=== PATIENT | male | born 1940 | race Caucasian/White ===

== ENCOUNTER 2020-01-15 07:30 | Outpatient (CLI) | payer MEDICARE, SELFPAY ==
[2020-01-15 07:59] LABS: Basophils Absolute Auto 0.1 K/mm3 (0.0-0.1); Basophils Percent Auto 1.2 % (0.2-1.2); Eosinophils Absolute Auto 0.1 K/mm3 (0-0.3); Eosinophils Percent Auto 2.2 % (0-4.4); Hematocrit 42.1 % (42.0-52.0); Hemoglobin 14.4 g/dL (14.0-18.0); Immature Granulocyte Absolute 0.02 K/mm3 (0.00-0.031); Immature Granulocyte Percent A 0.4 % (0-0.5); Lymphocytes Absolute Auto 2.19 K/mm3 (0.9-3.2); Lymphocytes Percent Auto 44.6 % (18.3-44.2); Mean Corpuscular HGB Conc 34.2 g/dl (32-36); Mean Corpuscular Volume 90.7 fl (80-100); Mean Platelet Volume 8.7 fl (7.4-10.4); Monocytes Absolute Auto 0.5 K/mm3 (0.1-0.6); Neutrophils Percent Auto 41.6 % (45.5-73.1); Platelet Count Result 213 k/mm3 (150-375); Red Blood Count 4.64 M/mm3 (4.6-6.20); Red Cell Distribution Width 12.7 % (11.5-14.5); White Blood Count 4.9 K/mm3 (4.5-10.0)
[2020-01-15 08:00] LABS: Add Urine Microscopic? NO; Appearance Urine Clear (Clear); Bilirubin Urine Negative (Negative); Blood Urine Negative (Negative); Color Urine Yellow (Yellow); Glucose Urine UA Negative (Negative); Ketones Urine Negative (Negative); Leukocyte Esterase Ur Negative LEU/UL (NEGATIVE); Nitrate Urine Negative (Negative); Protein Urine Negative (Negative); Specific Grav Ur 1.014 (1.001-1.035); Urobilinogen Urine Negative mg/dL (<2.0)
[2020-01-15 08:10] LABS: Alanine Aminotransferase 27 U/L (4-50); Albumin Level 4.1 g/dL (3.5-5.1); Alkaline Phosphatase 53 U/L (38-126); Aspartate Amino Transferase 29 U/L (17-59); Bilirubin,Total 0.4 mg/dL (0.2-1.3); Blood Urea Nitrogen 10 mg/dL (9-20); Calcium 8.9 mg/dL (8.4-10.2); Carbon Dioxide 32 mmol/L (22-30); Chloride 99 mmol/L (98-107); Cholesterol 135 mg/dL (0-200); Estimated Glomerular Filt Rate > 60; Glucose 91 mg/dL (75-110); HDL Direct 46 mg/dL; Sodium 135 mmol/L (137-145); Triglycerides 56 mg/dL (<150)
[2020-01-15 08:21] LABS: LDL Cholesterol Direct 69 mg/dL
== END 2020-01-15 07:31 | disposition home or self-care (01) ==
PROVIDERS: PCP Family Medicine; Visit Provider Physician Assistant
DX: K59.09 Other constipation (principal); I10 Essential (primary) hypertension; Z00.00 Encounter for general adult medical examination without abnormal findings
CPT/HCPCS: 36415; 80053; 80061; 81003; 84443; 85025

== ENCOUNTER → 2020-03-03 09:03 | Outpatient (REF) | payer MEDICARE, SELFPAY | LOC: ANHLAB 09:03 | PROVIDERS: PCP Family Medicine; Visit Provider Nurse Practitioner | DX: D49.2 Neoplasm of unspecified behavior of bone, soft tissue, and skin (principal) | CPT/HCPCS: 88305 ==

== ENCOUNTER 2020-03-17 00:50 | Outpatient (CLI) | payer MEDICARE, SELFPAY ==
[2020-03-17 19:08] LABS: SARS-CoV-2 RNA PCR Negative
== END 2020-03-17 00:51 | disposition home or self-care (01) ==
LOC: ANHCOVIDDT 00:50
PROVIDERS: PCP Family Medicine; Visit Provider Internal Medicine Gastroenterology
DX: Z01.812 Encounter for preprocedural laboratory examination (principal); Z11.59 Encounter for screening for other viral diseases
CPT/HCPCS: 87635; C9803; U0003

== ENCOUNTER 2020-03-19 01:24 | Day surgery (SDC) | payer MEDICARE, SELFPAY ==
[2020-03-12 14:25] VITALS: BMI 26.1
[2020-03-19 10:00] VITALS: BP 128/83; PULSE 69; RESP 18; TEMP 36.7; O2SAT 98
--- NOTE | 2020-03-19 10:10 | WPDANESEPPF ---
Anes - Initial Pre Proc Eval Procedure: Operation Date: 03/19/20 10:30 Proposed Procedures p Colonoscopy - Marques Barksdale DO Date/Time: 03/19/20 10:10 Surgeon: Marques Barksdale DO Pre Op Diagnosis: polyp of colon Patient Data Age: 79 Gender: M Height: 5 ft 8 in Weight: 78 kg Allergies Allergy/AdvReac Type Severity Reaction Status Date / Time NSAIDS (Non-Steroidal Allergy Mild Gastrointestinal Verified 03/19/20 10:02 Anti-Inflamma Upset celecoxib Allergy Unknown Gastrointestinal Verified 03/19/20 10:02 Upset ciprofloxacin Allergy Unknown Muscle pain Verified 03/19/20 10:02 latex Allergy Unknown Rash Verified 03/19/20 10:02 Home Medications Medication Instructions Recorded Confirmed Type apixaban 5 mg tablet 5 mg PO BID 07/09/19 03/12/20 History calcium carbonate 500 mg (1,250 1 tablet PO DAILY 07/09/19 03/12/20 History mg)-vitamin D3 200 unit tablet coenzyme Q10 200 mg capsule 200 mg PO DAILY 07/09/19 03/12/20 History magnesium 200 mg tablet 200 mg PO DAILY 07/09/19 03/12/20 History omeprazole 40 mg capsule,delayed 40 mg PO DAILY 07/09/19 03/12/20 History release sacubitril 24 mg-valsartan 26 mg 1 tablet PO BID 07/09/19 03/12/20 History tablet mometasone 50 mcg/actuation nasal 2 spray NASAL DAILY #17 gm 02/05/20 03/12/20 Rx spray atorvastatin 40 mg tablet 40 mg PO DAILY tablet 03/03/20 03/12/20 History melatonin 3 mg capsule 3 mg PO PRN PRN 03/03/20 03/12/20 History multivitamin 1 tablet PO DAILY 03/03/20 03/12/20 History sotalol 120 mg tablet 160 mg PO Q12H tablet 03/03/20 03/12/20 History Patient hx anesthesia problems: none Family hx anesthesia problems: none PMFSH Past Medical History Medical History (Updated 03/03/20 @ 09:03 by Katharina Mims) Anemia Arrhythmia Cholecystostomy care Chronic insomnia Coronary artery disease Heart disease Hernia Hypertension Vascular disease Surgical History Surgical History (Updated 03/03/20 @ 08:47 by Teresa L. Morel, RN) History of hernia repair Social History Social History (Updated 02/26/20 @ 13:06 by Park Jay) Smoking packs per day: 1 Smoking cigarettes per day: 20.0 Years smoked: 11 Smoking pack-years: 11.00 Smoking status: Former smoker Tobacco type: cigarettes Second hand tobacco smoke exposure: No Smoking end date: 09/04/71 Alcohol intake: current Drinks per week: 7 Substance use: never Substance use type: does not use Gender identity (if verbalized by the patient): Male Anes - Eval Final PreProcedure Day of Procedure 03/19/20 10:10 Patient weight: normal Heart: regular rate and rhythm Lungs: clear to auscultation Airway: Mallampati scale class II Neurological: alert and oriented Last oral intake: >/= 8 hours ASA classification: III Emergent: no Anesthetic plan: proceed Anesthesia type and monitoring: general GIVS and standard monitoring Informed Consent: The patient's anesthetic plan and its attendant risks and benefits were discussed with the patient/family/POA. Questions were solicited and answers provided to the satisfaction of the patient/family/POA.
[2020-03-19] MEDS: LACTATED RINGERS 1,000 ML 150 ML IV CONT (10:31)
--- NOTE | 2020-03-19 11:13 | PM.IMHP ---
H&P: HPI History of Present Illness Chief complaint: polyp of colon Narrative: Reason for visit colonoscopy. This very pleasant gentleman seen at the request of the primary physician. The patient was examined. Impression: Here is a gentleman with a history adenomatous colon polyps. He is here for colonoscopy for screening and surveillance. He does have a history of constipation and takes MiraLax daily. Previous history of anal stenosis also noted. GERD controlled on medication. CAD. CHF with cardiomyopathy. Cardiac dysrhythmia status post cardiac ablation and pacemaker placement. HLD. HTN. Recommendation: Colonoscopy. History: this very pleasant gentleman is here for screening and surveillance colonoscopy. He has a history of adenomatous colon polyps. Patient does have a history of constipation and takes MiraLax. He has a previous history of reflux disease controlled on medication. Patient is here for colonoscopy. He does complain occasional sharp pains. The patient is a history congestive heart failure. He does admit to having panting . He denies any significant chest pain, shortness of breath, dyspnea on exertion, cough or hemoptysis. Physical examination: General: very pleasant patient in no acute distress. HEENT: Head was normocephalic sclerae is clear mouth without masses neck was supple. Heart: Rate rhythm regular without S3 or S4. Lungs: CTA. Abdomen: Soft with no guarding or rigidity. Bowel sounds were active. Neurologic: Cranial nerves 2 through 12 intact. No focal defects. No clonus. Musculoskeletal system: Revealed no joint tenderness or swelling no muscle atrophy. Extremities: Reveal no significant edema. Skin: Warm and dry with normal turgor. Mental status: intact. Patient is alert and oriented. Review of Systems Review of Systems: All systems reviewed & are unremarkable except as noted in HPI and below [facility] Past Medical History Medical History (Updated 03/03/20 @ 09:03 by Katharina Mims) Anemia Arrhythmia Cholecystostomy care Chronic insomnia Coronary artery disease Heart disease Hernia Hypertension Vascular disease Surgical History Surgical History (Updated 03/03/20 @ 08:47 by Teresa Morel RN) History of hernia repair Social History Social History (Updated 02/26/20 @ 13:06 by Park Jay) Smoking packs per day: 1 Smoking cigarettes per day: 20.0 Years smoked: 11 Smoking pack-years: 11.00 Smoking status: Former smoker Tobacco type: cigarettes Second hand tobacco smoke exposure: No Smoking end date: 09/04/71 Alcohol intake: current Drinks per week: 7 Substance use: never Substance use type: does not use Gender identity (if verbalized by the patient): Male Meds Home Medications and Allergies Home Medications Medication Instructions Recorded Confirmed Type apixaban 5 mg tablet 5 mg PO BID 07/09/19 03/19/20 History calcium carbonate 500 mg (1,250 1 tablet PO DAILY 07/09/19 03/19/20 History mg)-vitamin D3 200 unit tablet coenzyme Q10 200 mg capsule 200 mg PO DAILY 07/09/19 03/19/20 History magnesium 200 mg tablet 200 mg PO DAILY 07/09/19 03/19/20 History omeprazole 40 mg capsule,delayed 40 mg PO DAILY 07/09/19 03/19/20 History release sacubitril 24 mg-valsartan 26 mg 1 tablet PO BID 07/09/19 03/19/20 History tablet mometasone 50 mcg/actuation nasal 2 spray NASAL DAILY #17 gm 02/05/20 03/19/20 Rx spray atorvastatin 40 mg tablet 40 mg PO DAILY tablet 03/03/20 03/19/20 History melatonin 3 mg capsule 3 mg PO PRN PRN 03/03/20 03/19/20 History multivitamin 1 tablet PO DAILY 03/03/20 03/19/20 History sotalol 120 mg tablet 160 mg PO Q12H tablet 03/03/20 03/19/20 History buspirone 5 mg PO QAM 03/19/20 03/19/20 History furosemide 20 mg PO QAM 03/19/20 03/19/20 History Allergies Allergy/AdvReac Type Severity Reaction Status Date / Time NSAIDS (Non-Steroidal Allergy Mild
[2020-03-19 11:49] VITALS: BP 87/54; PULSE 60; RESP 16; O2SAT 96
[2020-03-19 11:59] VITALS: BP 103/59; PULSE 62; RESP 16; O2SAT 95
[2020-03-19 12:09] VITALS: BP 116/73; PULSE 61; RESP 15; O2SAT 99
== END 2020-03-19 12:28 | disposition home or self-care (01) ==
PROVIDERS: PCP Family Medicine; Visit Provider Internal Medicine Gastroenterology
PROC: 0DJD8ZZ Inspection of Lower Intestinal Tract, Via Natural or Artificial Opening Endoscopic (ICD-10-PCS; CPT 45378; principal; 2020-03-19 10:30)
DX: Z12.11 Encounter for screening for malignant neoplasm of colon (principal); D12.2 Benign neoplasm of ascending colon; K57.30 Diverticulosis of large intestine without perforation or abscess without bleeding; K64.8 Other hemorrhoids; K62.4 Stenosis of anus and rectum; I11.0 Hypertensive heart disease with heart failure; I25.10 Atherosclerotic heart disease of native coronary artery without angina pectoris; I50.9 Heart failure, unspecified; I42.9 Cardiomyopathy, unspecified; E78.5 Hyperlipidemia, unspecified; Z95.0 Presence of cardiac pacemaker; Z87.891 Personal history of nicotine dependence; Z79.01 Long term (current) use of anticoagulants
CPT/HCPCS: 45380; 36415; 71046; 74177; 80048; 81001; 85025; 88305; 99284; J2704; J7120; Q9967

== ENCOUNTER 2020-03-19 21:22 | Emergency (ER) | payer MEDICARE, SELFPAY ==
--- NOTE | ~2020-03-19 | CT_ITS ---
EXAMINATION: CT abdomen pelvis w con DATE: 03/19/2020 23:23 INDICATION: Low abdominal pain. Fever. TECHNIQUE: Computed tomography (CT) of the abdomen and pelvis was performed with 100 mL Omnipaque 350 intravenous contrast. Automated exposure control and iterative reconstruction technique were employe d. The dose-length product was 509.79 mGy-cm. COMPARISON: Pelvis CT 02/27/2017 FINDINGS: The visualized portions of the lung bases demonstrate mild atelectasis. No pleural effusion . The heart size is normal. There are coronary artery calcifications. No pericardial effusion. There are pacer wires in right atrium, right ventricle, and coronary sinus. There is a 1.7 cm cyst in the l iver. There are changes of cholecystectomy. The spleen, pancreas, and adrenal glands are normal. Ther e are are cysts in the kidneys measuring up to 4.1 cm on the left. There are no dilated loops of desire l. The appendix is normal. There are no pathologically enlarged lymph nodes. There is no free intrape ritoneal fluid. There is mild thoracolumbar spondylosis. IMPRESSION: 1. No etiology for the patient's symptoms. Reviewed, dictated and finalized at location A.
--- NOTE | ~2020-03-19 | XR_ITS ---
EXAMINATION: XR chest 2V DATE: 03/19/2020 23:11 INDICATION: Fever. TECHNIQUE: Frontal and lateral views of the chest were obtained. COMPARISON: Chest 2 views 07/15/2019 FINDINGS: There is mild atelectasis in the lower lung zones. No pleural effusion or pneumothorax. The heart size is normal. There is a left chest pacer with leads in right atrium, right ventricle, and c oronary sinus. Surgical clips in the right upper quadrant are likely from cholecystectomy. IMPRESSION: 1. Mild atelectasis in the lower lung zones. Reviewed, dictated and finalized at location A.
[2020-03-19 21:29] VITALS: BP 123/75; PULSE 93; RESP 20; TEMP 37.4; O2SAT 95
[2020-03-19 21:36] VITALS: TEMP 36.9
--- NOTE | 2020-03-19 22:37 | ED.FEVER ---
HPI - Fever General Chief Complaint: Fever Stated Complaint: fever Time Seen by Provider: 03/19/20 22:12 History of Present Illness HPI Narrative: Patient is a 79-year-old male who presents to the ER with fever of 101.1 ?F. Patient underwent colonoscopy today and was told if he had a fever he should come back in. He called his GI physician Dr. Barksdale. Reports mild lower abdominal discomfort with bloating. Has not passed a lot of gas since his colonoscopy. No nausea/vomiting/runny nose/sore throat/productive cough. Had a negative COVID test 2 days ago. No known exposures. No diarrhea. Related Data Home Medications Medication Instructions Recorded Confirmed apixaban 5 mg tablet 5 mg PO BID 07/09/19 03/19/20 calcium carbonate 500 mg (1,250 1 tablet PO DAILY 07/09/19 03/19/20 mg)-vitamin D3 200 unit tablet coenzyme Q10 200 mg capsule 200 mg PO DAILY 07/09/19 03/19/20 magnesium 200 mg tablet 200 mg PO DAILY 07/09/19 03/19/20 omeprazole 40 mg capsule,delayed 40 mg PO DAILY 07/09/19 03/19/20 release sacubitril 24 mg-valsartan 26 mg 1 tablet PO BID 07/09/19 03/19/20 tablet atorvastatin 40 mg tablet 40 mg PO DAILY tablet 03/03/20 03/19/20 melatonin 3 mg capsule 3 mg PO PRN PRN 03/03/20 03/19/20 multivitamin 1 tablet PO DAILY 03/03/20 03/19/20 sotalol 120 mg tablet 160 mg PO Q12H tablet 03/03/20 03/19/20 buspirone 5 mg PO QAM 03/19/20 03/19/20 furosemide 20 mg PO QAM 03/19/20 03/19/20 Allergies Allergy/AdvReac Type Severity Reaction Status Date / Time NSAIDS (Non-Steroidal Allergy Mild Gastrointestinal Verified 03/19/20 10:02 Anti-Inflamma Upset celecoxib Allergy Unknown Gastrointestinal Verified 03/19/20 10:02 Upset ciprofloxacin Allergy Unknown Muscle pain Verified 03/19/20 10:02 latex Allergy Unknown Rash Verified 03/19/20 10:02 Review of Systems Review of Systems: All systems reviewed & are unremarkable except as noted in HPI and below Constitutional: Constitutional: Reports chills, Reports fatigue and Reports fever(s) ENT: Denies nasal congestion and Denies sore throat Cardiovascular: Cardiovascular: Denies chest pain, Denies rapid heart rate and Denies radiating jaw, neck or arm pain Respiratory: Respiratory: Denies chest congestion, Denies cough and Denies dyspnea Gastrointestinal: Gastrointestinal: Reports abdominal pain, Denies constipation, Denies diarrhea, Denies nausea and Denies vomiting PMFSH Past Medical History Medical History (Updated 03/20/20 @ 00:26 by Kar Grey MD) Anemia Arrhythmia Cholecystostomy care Chronic insomnia Coronary artery disease Heart disease Hernia Hypertension Vascular disease Surgical History Surgical History (Updated 03/03/20 @ 08:47 by Teresa Morel RN) History of hernia repair Social History Social History (Updated 02/26/20 @ 13:06 by Park Jay) Smoking packs per day: 1 Smoking cigarettes per day: 20.0 Years smoked: 11 Smoking pack-years: 11.00 Smoking status: Former smoker Tobacco type: cigarettes Second hand tobacco smoke exposure: No Smoking end date: 09/04/71 Alcohol intake: current Drinks per week: 7 Substance use: never Substance use type: does not use Gender identity (if verbalized by the patient): Male Exam Narrative: Exam Narrative: GENERAL: Well-appearing, well-nourished, and in no acute distress. HEAD: Normocephalic, atraumatic. CHEST: Clear to auscultation. No respiratory distress. HEART: Regular rate and rhythm. Normal peripheral pulses. ABDOMEN: Soft, mild lower abdominal discomfort, nondistended, normal active bowel sounds. EXTREMITIES: Normal range of motion. No edema. SKIN: Warm, dry, no rash. NEURO: Alert and oriented x3. PSYCH: Normal mood and affect. Course Course Emergency Course: Patient informed of results. Feeling well. Discharge home. Vital Signs Vital signs: Vital Signs Temperature 99.4 F 03/19/20 21:29 Pulse Rate 93 03/19/20 21:29 Respirato
[2020-03-19 22:55] LABS: Basophils Percent Auto 0.3 % (0.2-1.2); Eosinophils Percent Auto 0.2 % (0-4.4); Hematocrit 40.1 % (42.0-52.0); Hemoglobin 14.1 g/dL (14.0-18.0); Immature Granulocyte Absolute 0.02 K/mm3 (0.00-0.031); Immature Granulocyte Percent A 0.2 % (0-0.5); Lymphocytes Absolute Auto 1.51 K/mm3 (0.9-3.2); Lymphocytes Percent Auto 15.1 % (18.3-44.2); Mean Corpuscular HGB Conc 35.2 g/dl (32-36); Mean Corpuscular Hemoglobin 31.7 pg (26-34); Mean Corpuscular Volume 90.1 fl (80-100); Mean Platelet Volume 8.9 fl (7.4-10.4); Monocytes Percent Auto 10.4 % (2.6-8.5); Neutrophils Absolute Auto 7.4 K/mm3 (1.3-6.7); Neutrophils Percent Auto 73.8 % (45.5-73.1); Platelet Count Result 229 k/mm3 (150-375); Red Blood Count 4.45 M/mm3 (4.6-6.20); Red Cell Distribution Width 12.5 % (11.5-14.5)
[2020-03-19 22:56] VITALS: BP 109/66; PULSE 79; RESP 14; TEMP 37.5; O2SAT 93
[2020-03-19 22:59] LABS: Add Urine Microscopic? YES; Appearance Urine Clear (Clear); Bilirubin Urine Negative (Negative); Blood Urine 1+ (Negative); Color Urine Straw (Yellow); Glucose Urine UA Negative (Negative); Ketones Urine Negative (Negative); Leukocyte Esterase Ur Negative LEU/UL (Negative); Nitrate Urine Negative (Negative); Protein Urine Negative (Negative); RBC Urine 0-2 /hpf (0-2); Specific Grav Ur 1.009 (1.001-1.035); Urobilinogen Urine Negative mg/dL (<2.0); WBC Urine 0-3 /hpf
[2020-03-19 23:09] LABS: Blood Urea Nitrogen 14 mg/dL (9-20); Calcium 8.9 mg/dL (8.4-10.2); Carbon Dioxide 26 mmol/L (22-30); Chloride 101 mmol/L (98-107); Estimated CRCL calculation 74 ml/min; Estimated Glomerular Filt Rate > 60; Glucose 92 mg/dL (75-110); Potassium 3.5 mmol/L (3.4-5.0); Sodium 134 mmol/L (137-145)
[2020-03-20 00:39] VITALS: BP 125/79; PULSE 66; RESP 16; TEMP 37.3; O2SAT 94
== END 2020-03-20 00:40 | disposition home or self-care (01) ==
PROVIDERS: Emergency Provider Emergency Medicine; PCP Family Medicine
DX: R50.82 Postprocedural fever (principal); I25.10 Atherosclerotic heart disease of native coronary artery without angina pectoris; I99.9 Unspecified disorder of circulatory system; I11.9 Hypertensive heart disease without heart failure; Z87.891 Personal history of nicotine dependence
CPT/HCPCS: 36415; 71046; 74177; 80048; 81001; 85025; 99284; Q9967

== ENCOUNTER → 2020-06-05 12:41 | Outpatient (CLI) | payer MEDICARE, SELFPAY ==
--- NOTE | ~2020-06-05 | CT_ITS ---
EXAMINATION: CT sinus wo con EXAM DATE: 06/05/2020 12:57 INDICATION: Chronic sinusitis. TECHNIQUE: Spiral CT of the sinuses was acquired in the axial plane. Coronal and sagittal reformatte d images were also reviewed. The dose-length product (DLP) for this examination was 276.47 mGy-cm. Iterative reconstruction (ASIR) was used as dose reduction technique. There is no prior study for co mparison. FINDINGS: The sinuses are normally developed. Mild bilateral maxillary sinus mucoperiosteal thicke alber, and a small amount of fluid in the right maxillary sinus. There is moderate-sized left maxillar y sinus retention cyst. The ostiomeatal units are patent. Small right-sided uriel bullosa. There is moderate S-shaped nasal septal deviation. The mastoid air cells and middle ears are well aerated. External auditory canals are patent. Bilateral cataract surgery. IMPRESSION: 1. Mild maxillary mucoperiosteal thickening and small amount of right maxillary fluid. 2. Moderate nasal septal deviation. Reviewed, dictated and finalized at location A. IMPRESSION: 1. Mild maxillary mucoperiosteal thickening and small amount of right maxillar y fluid. 2. Moderate nasal septal deviation.
== END ==
PROVIDERS: Visit Provider Otolaryngology
DX: J32.9 Chronic sinusitis, unspecified (principal); J34.2 Deviated nasal septum
CPT/HCPCS: 70486

== ENCOUNTER → 2020-07-16 13:09 | Outpatient (REF) | payer MEDICARE, SELFPAY | LOC: ANHLAB 13:09 | PROVIDERS: PCP Family Medicine; Visit Provider Nurse Practitioner | DX: L90.5 Scar conditions and fibrosis of skin (principal); L85.9 Epidermal thickening, unspecified | CPT/HCPCS: 88304 ==

== ENCOUNTER 2020-08-03 00:15 | Outpatient (CLI) | payer MEDICARE, SELFPAY ==
[2020-08-03 20:45] LABS: SARS-CoV-2 RNA PCR Negative
== END 2020-08-03 00:16 | disposition home or self-care (01) ==
LOC: ANHCOVIDDT 00:16
PROVIDERS: PCP Family Medicine; Visit Provider Internal Medicine Gastroenterology
DX: Z01.812 Encounter for preprocedural laboratory examination (principal); Z11.59 Encounter for screening for other viral diseases
CPT/HCPCS: 87635; C9803; U0003

== ENCOUNTER 2020-08-06 02:03 | Day surgery (SDC) | payer MEDICARE, SELFPAY ==
[2020-07-29 11:54] VITALS: BMI 26.8
[2020-08-06 15:06] VITALS: BP 140/81; PULSE 73; RESP 18; TEMP 36.9; O2SAT 99
--- NOTE | 2020-08-06 15:15 | WPDANESEPPF ---
Anes - Initial Pre Proc Eval Procedure: Operation Date: 08/06/20 16:00 Proposed Procedures p Esophagogastroduodenoscopy - Shon Hall MD Date/Time: 08/06/20 15:15 Surgeon: Shon Hall MD Pre Op Diagnosis: epigastric pain Patient Data Age: 80 Gender: M Height: 5 ft 8 in Weight: 81 kg Last Vital Signs Temp 98.4 F 08/06/20 15:06 Pulse 73 08/06/20 15:06 Resp 18 08/06/20 15:06 BP 140/81 08/06/20 15:06 Pulse Ox 99 08/06/20 15:06 Allergies Allergy/AdvReac Type Severity Reaction Status Date / Time celecoxib Allergy Intermediate Gastrointestinal Verified 08/06/20 15:03 Upset ciprofloxacin Allergy Intermediate Muscle pain Verified 08/06/20 15:03 latex Allergy Intermediate Rash Verified 08/06/20 15:03 NSAIDS (Non-Steroidal Allergy Intermediate Gastrointestinal Verified 08/06/20 15:03 Anti-Inflamma Upset Home Medications Medication Instructions Recorded Confirmed Type apixaban 5 mg tablet 5 mg PO BID 07/09/19 07/29/20 History coenzyme Q10 200 mg capsule 200 mg PO DAILY 07/09/19 07/29/20 History magnesium 200 mg tablet 200 mg PO DAILY 07/09/19 07/29/20 History omeprazole 40 mg capsule,delayed 40 mg PO DAILY 07/09/19 07/29/20 History release sacubitril 24 mg-valsartan 26 mg 1 tablet PO BID 07/09/19 07/29/20 History tablet mometasone 50 mcg/actuation nasal 2 spray NASAL DAILY #17 gm 02/05/20 07/29/20 Rx spray atorvastatin 40 mg tablet 40 mg PO DAILY tablet 03/03/20 07/29/20 History melatonin 3 mg capsule 3 mg PO PRN PRN 03/03/20 07/29/20 History multivitamin 1 tablet PO DAILY 03/03/20 07/29/20 History sotalol 120 mg tablet 120 mg PO Q12H tablet 03/03/20 07/29/20 History furosemide 20 mg PO QAM 03/19/20 07/29/20 History amlodipine 2.5 mg PO DAILY 07/29/20 07/29/20 History buspirone 5 mg PO TID 07/29/20 07/29/20 History calcium carbonate [Calcium 600] 600 mg PO DAILY 07/29/20 07/29/20 History Patient hx anesthesia problems: none Family hx anesthesia problems: none [facility] Past Medical History Medical History Anemia Arrhythmia Cholecystostomy care Chronic insomnia Coronary artery disease Degenerative arthritis of knee, bilateral Depression Heart disease Hernia History of gastroesophageal reflux (GERD) History of stomach ulcers Hypertension Vascular disease Surgical History Surgical History History of cholecystectomy History of hernia repair History of permanent cardiac pacemaker placement Family History Family History Mother Hypertension Patient's mother is in good health Sibling Hypertension Father Family history of heart disease in male family member before age 55 Other Cerebrovascular accident Diabetes mellitus Family history of arthritis Family history of cardiovascular disease Family history of kidney disease Social History Social History Smoking packs per day: 1 Smoking cigarettes per day: 20.0 Years smoked: 11 Smoking pack-years: 11.00 Smoking status: Former smoker Tobacco type: cigarettes Second hand tobacco smoke exposure: No Smoking end date: 09/04/71 Alcohol intake: current Drinks per week: 7 Alcohol use details: WINE Substance use: never Substance use type: does not use Other substance usage details: GUMMIES OCC. FOR KNEE PAIN Living arrangements: with family Gender identity (if verbalized by the patient): Male Spiritual care concerns: No Anes - Eval Final PreProcedure Day of Procedure 08/06/20 15:15 Patient weight: normal Heart: regular rate and rhythm Lungs: clear to auscultation Airway: Mallampati scale class II Neurological: alert and oriented Last oral intake: 6 hours ASA classification: III Emergent: no Anesthetic plan: p
[2020-08-06] MEDS: LACTATED RINGERS 1,000 ML 150 ML IV CONT (15:33)
--- NOTE | 2020-08-06 16:10 | PM.HPGS ---
History of Present Illness History of Present Illness Consent: Risks, benefits, and alternatives have been discussed and questions answered. Patient agrees to proceed with procedure. Chief complaint: epigastric pain Narrative: Cole Fatima is a 80 year old male who is Dr Barksdale's patient and has been complaining of more epigastric pain. He had ulcer about 7 years ago, taking omeprazole for almost 15 years. Also h/o IBS. Denies recent nsaid's. Review of Systems Constitutional: Constitutional: Denies headache(s) and Denies weakness Eyes: Eyes: Denies blurry vision ENT: Reports Normal hearing present, Denies headache(s) and Denies neck pain Cardiovascular: Cardiovascular: Denies chest pain and Denies dyspnea Respiratory: Respiratory: Denies dyspnea Gastrointestinal: Gastrointestinal: Reports no additional gastrointestinal complaints Genitourinary: Genitourinary: Denies dysuria Musculoskeletal: Musculoskeletal: Denies neck pain Integumentary/Breasts: Skin/Breast: Denies dry skin Neurologic: Reports Normal hearing present, Denies headache(s) and Denies weakness Psychiatric: Psychiatric: Denies anxiety Endocrine: Endocrine: Denies change in body appearance Hematologic/Lymphatic: Hematologic/Lymphatic: Denies easy bleeding Allergic/Immunologic: Allergic/Immunologic: Denies urticaria PMFSH Past Medical History Medical History (Updated 08/06/20 @ 16:11 by Shon Hall MD) Anemia Arrhythmia Cholecystostomy care Chronic insomnia Coronary artery disease Degenerative arthritis of knee, bilateral Depression Epigastric pain GERD (gastroesophageal reflux disease) Heart disease Hernia History of gastroesophageal reflux (GERD) History of stomach ulcers Hypertension Vascular disease Surgical History Surgical History History of cholecystectomy History of hernia repair History of permanent cardiac pacemaker placement Family History Family History Mother Hypertension Patient's mother is in good health Sibling Hypertension Father Family history of heart disease in male family member before age 55 Other Cerebrovascular accident Diabetes mellitus Family history of arthritis Family history of cardiovascular disease Family history of kidney disease Social History Social History Smoking packs per day: 1 Smoking cigarettes per day: 20.0 Years smoked: 11 Smoking pack-years: 11.00 Smoking status: Former smoker Tobacco type: cigarettes Second hand tobacco smoke exposure: No Smoking end date: 09/04/71 Alcohol intake: current Drinks per week: 7 Alcohol use details: WINE Substance use: never Substance use type: does not use Other substance usage details: KAT OCC. FOR KNEE PAIN Living arrangements: with family Gender identity (if verbalized by the patient): Male Spiritual care concerns: No Meds Home Medications and Allergies Home Medications Medication Instructions Recorded Confirmed Type apixaban 5 mg tablet 5 mg PO BID 07/09/19 07/29/20 History coenzyme Q10 200 mg capsule 200 mg PO DAILY 07/09/19 07/29/20 History magnesium 200 mg tablet 200 mg PO DAILY 07/09/19 07/29/20 History omeprazole 40 mg capsule,delayed 40 mg PO DAILY 07/09/19 07/29/20 History release sacubitril 24 mg-valsartan 26 mg 1 tablet PO BID 07/09/19 07/29/20 History tablet mometasone 50 mcg/actuation nasal 2 spray NASAL DAILY #17 gm 02/05/20 07/29/20 Rx spray atorvastatin 40 mg tablet 40 mg PO DAILY tablet 03/03/20 07/29/20 History melatonin 3 mg capsule 3 mg PO PRN PRN 03/03/20 07/29/20 History multivitamin 1 tablet PO DAILY 03/03/20 07/29/20 History sotalol 120 mg tablet 120 mg PO Q12H tablet 03/03/20 07/29/20 History furosemide 20 mg PO QAM 03/19/20 07/29/20 History amlodipine 2.5 mg PO HUMBERTO
[2020-08-06] MEDS: BENZOCAINE (*SP) 60 ML SPRAY CAN (HURRICAINE) 1 SPRAY MUCOUS MEM (16:18)
[2020-08-06 16:28] VITALS: BP 124/82; PULSE 70; RESP 19; O2SAT 95
[2020-08-06 16:38] VITALS: BP 121/83; PULSE 63; RESP 21; O2SAT 96
[2020-08-06 16:48] VITALS: BP 123/89; PULSE 65; RESP 20; O2SAT 97
== END 2020-08-06 17:07 | disposition home or self-care (01) ==
PROVIDERS: PCP Family Medicine; Visit Provider Internal Medicine Gastroenterology
PROC: 0DJ08ZZ Inspection of Upper Intestinal Tract, Via Natural or Artificial Opening Endoscopic (ICD-10-PCS; CPT 43235; principal; 2020-08-06 16:00)
DX: K21.9 Gastro-esophageal reflux disease without esophagitis (principal); K25.9 Gastric ulcer, unspecified as acute or chronic, without hemorrhage or perforation; K29.50 Unspecified chronic gastritis without bleeding; K31.7 Polyp of stomach and duodenum; I25.10 Atherosclerotic heart disease of native coronary artery without angina pectoris; I11.9 Hypertensive heart disease without heart failure; D64.9 Anemia, unspecified; F32.9 Major depressive disorder, single episode, unspecified; Z79.01 Long term (current) use of anticoagulants; Z87.891 Personal history of nicotine dependence
CPT/HCPCS: 43239; 88305; J2704; J7120

== ENCOUNTER → 2020-11-09 00:33 | Outpatient (CLI) | payer MEDICARE, SELFPAY ==
[2020-11-09 18:03] LABS: SARS-CoV-2 RNA PCR Negative
== END ==
PROVIDERS: PCP Family Medicine; Visit Provider Internal Medicine Gastroenterology
DX: Z01.812 Encounter for preprocedural laboratory examination (principal); Z20.822 Contact with and (suspected) exposure to COVID-19
CPT/HCPCS: C9803; U0003; U0005

== ENCOUNTER 2020-11-12 00:29 | Day surgery (SDC) | payer MEDICARE, SELFPAY ==
[2020-11-02 11:15] VITALS: BMI 27.4
[2020-11-12 11:47] VITALS: BP 123/86; PULSE 77; RESP 20; TEMP 36.3; O2SAT 100; BMI 27.1
--- NOTE | 2020-11-12 12:09 | WPDANESEPPF ---
Anes - Initial Pre Proc Eval Procedure: Operation Date: 11/12/20 12:30 Proposed Procedures p Esophagogastroduodenoscopy - Marques Barksdale DO Date/Time: 11/12/20 12:09 Surgeon: Marques Barksdale DO Pre Op Diagnosis: peptic ulcer disease Patient Data Age: 80 Gender: M Height: 5 ft 8 in Weight: 80.8 kg Last Vital Signs Temp 97.3 F L 11/12/20 11:47 Pulse 77 11/12/20 11:47 Resp 20 11/12/20 11:47 BP 123/86 11/12/20 11:47 Pulse Ox 100 11/12/20 11:47 Allergies Allergy/AdvReac Type Severity Reaction Status Date / Time celecoxib Allergy Intermediate Gastrointestinal Verified 11/12/20 11:44 Upset ciprofloxacin Allergy Intermediate Muscle pain Verified 11/12/20 11:44 latex Allergy Intermediate Rash Verified 11/12/20 11:44 NSAIDS (Non-Steroidal Allergy Intermediate Gastrointestinal Verified 11/12/20 11:44 Anti-Inflamma Upset Home Medications Medication Instructions Recorded Confirmed Type apixaban 5 mg tablet 5 mg PO BID 07/09/19 11/02/20 History coenzyme Q10 200 mg capsule 200 mg PO DAILY 07/09/19 11/02/20 History magnesium 200 mg tablet 200 mg PO DAILY 07/09/19 11/02/20 History sacubitril 24 mg-valsartan 26 mg 1 tablet PO BID 07/09/19 11/02/20 History tablet atorvastatin 40 mg tablet 40 mg PO DAILY tablet 03/03/20 11/02/20 History multivitamin 1 tablet PO DAILY 03/03/20 11/02/20 History sotalol 120 mg tablet 120 mg PO Q12H tablet 03/03/20 11/02/20 History furosemide 20 mg PO QAM 03/19/20 11/02/20 History amlodipine 5 mg PO DAILY 07/29/20 11/02/20 History buspirone 5 mg PO TID 07/29/20 11/02/20 History calcium carbonate [Calcium 600] 600 mg PO DAILY 07/29/20 11/02/20 History omeprazole 40 mg capsule,delayed 40 mg PO BID #60 cap 08/06/20 11/02/20 Rx release azelastine 137 mcg (0.1 %) nasal 1 spray INTRANASAL Q12H #30 ml 09/17/20 11/02/20 Rx spray aerosol Patient hx anesthesia problems: none Family hx anesthesia problems: none PMFSH Past Medical History Medical History Anemia Arrhythmia Cholecystostomy care Chronic insomnia Coronary artery disease Degenerative arthritis of knee, bilateral Depression Epigastric pain GERD (gastroesophageal reflux disease) Heart disease Hernia History of gastroesophageal reflux (GERD) History of stomach ulcers Hypertension Vascular disease Surgical History Surgical History History of cholecystectomy History of hernia repair History of permanent cardiac pacemaker placement Family History Family History Mother Hypertension Patient's mother is in good health Sibling Hypertension Father Family history of heart disease in male family member before age 55 Other Cerebrovascular accident Diabetes mellitus Family history of arthritis Family history of cardiovascular disease Family history of kidney disease Social History Social History Smoking packs per day: 1 Smoking cigarettes per day: 20.0 Years smoked: 11 Smoking pack-years: 11.00 Smoking status: Former smoker Tobacco type: cigarettes Second hand tobacco smoke exposure: No Smoking end date: 09/04/71 Alcohol intake: current Drinks per week: 7 Substance use: never Substance use type: does not use Other substance usage details: GUMMIES OCC. FOR KNEE PAIN Living arrangements: with family Gender identity (if verbalized by the patient): Male Spiritual care concerns: No Anes - Eval Final PreProcedure Day of Procedure 11/12/20 12:09 Patient weight: normal Heart: regular rate and rhythm Lungs: clear to auscultation Airway: Mallampati scale class II Neurological: alert and oriented Last oral intake: >/= 8 hours ASA classification: III Emergent: no Anesthetic plan: proceed Anesthesia type and monitoring: general GIVS and s
[2020-11-12] MEDS: LACTATED RINGERS 1,000 ML 150 ML IV CONT (12:16)
--- NOTE | 2020-11-12 12:19 | WPDGICN ---
GI Consult Note Consult date/time: 11/12/20 12:19 HPI: This very pleasant gentleman is seen regarding EGD. This very pleasant gentleman seen in consultation request the primary physician. Impression: History of GI bleeding gastric ulcer disease. He does have an underlying history of GERD. He is here to assess for healing. History adenomatous colon polyps. CAD. DJD. Depression. HTN. Valvular heart disease. Recommendation: EGD. History: This very pleasant gentleman was admitted to the hospital with GI bleeding. He underwent endoscopy by a fellow colleague. Was found have gastric ulcer disease. His GI review systems now negative. He is here to assess for healing. He does have a history reflux disease and is asymptomatic. He also has a history adenomatous colon polyps. General: very pleasant patient in no acute distress. HEENT: Head was normocephalic sclerae is clear mouth without masses neck was supple. Heart: Rate rhythm regular without S3 or S4. Lungs: CTA. Abdomen: Soft with no guarding or rigidity. Bowel sounds were active. Neurologic: Cranial nerves 2 through 12 intact. No focal defects. No clonus. Musculoskeletal system: Revealed no joint tenderness or swelling no muscle atrophy. Extremities: Reveal no significant edema. Skin: Warm and dry with normal turgor. Mental status: intact. Patient is alert and oriented. Review of Systems Review of Systems: All systems reviewed & are unremarkable except as noted in HPI and below PMFSH Past Medical History Medical History Anemia Arrhythmia Cholecystostomy care Chronic insomnia Coronary artery disease Degenerative arthritis of knee, bilateral Depression Epigastric pain GERD (gastroesophageal reflux disease) Heart disease Hernia History of gastroesophageal reflux (GERD) History of stomach ulcers Hypertension Vascular disease Surgical History Surgical History History of cholecystectomy History of hernia repair History of permanent cardiac pacemaker placement Family History Family History Mother Hypertension Patient's mother is in good health Sibling Hypertension Father Family history of heart disease in male family member before age 55 Other Cerebrovascular accident Diabetes mellitus Family history of arthritis Family history of cardiovascular disease Family history of kidney disease Social History Social History Smoking packs per day: 1 Smoking cigarettes per day: 20.0 Years smoked: 11 Smoking pack-years: 11.00 Smoking status: Former smoker Tobacco type: cigarettes Second hand tobacco smoke exposure: No Smoking end date: 09/04/71 Alcohol intake: current Drinks per week: 7 Substance use: never Substance use type: does not use Other substance usage details: EARNESTMIKESURENDRA OCC. FOR KNEE PAIN Living arrangements: with family Gender identity (if verbalized by the patient): Male Spiritual care concerns: No Meds Home Medications and Allergies Home Medications Medication Instructions Recorded Confirmed Type apixaban 5 mg tablet 5 mg PO BID 07/09/19 11/02/20 History coenzyme Q10 200 mg capsule 200 mg PO DAILY 07/09/19 11/02/20 History magnesium 200 mg tablet 200 mg PO DAILY 07/09/19 11/02/20 History sacubitril 24 mg-valsartan 26 mg 1 tablet PO BID 07/09/19 11/02/20 History tablet atorvastatin 40 mg tablet 40 mg PO DAILY tablet 03/03/20 11/02/20 History multivitamin 1 tablet PO DAILY 03/03/20 11/02/20 History sotalol 120 mg tablet 120 mg PO Q12H tablet 03/03/20 11/02/20 History furosemide 20 mg PO QAM 03/19/20 11/02/20 History amlodipine 5 mg PO DAILY 07/29/20 11/02/20 History buspirone 5 mg PO TID 07/29/20 11/02/20 History calcium carbonate [Calcium 600] 6
[2020-11-12 13:20] VITALS: BP 103/67; PULSE 65; RESP 26; O2SAT 93
[2020-11-12 13:30] VITALS: BP 109/73; PULSE 62; RESP 21; O2SAT 94
[2020-11-12 13:40] VITALS: BP 109/69; PULSE 60; RESP 18; O2SAT 96
== END 2020-11-12 13:50 | disposition home or self-care (01) ==
PROVIDERS: PCP Family Medicine; Visit Provider Internal Medicine Gastroenterology
PROC: 0DJ08ZZ Inspection of Upper Intestinal Tract, Via Natural or Artificial Opening Endoscopic (ICD-10-PCS; CPT 43235; principal; 2020-11-12 12:30)
DX: Z87.11 Personal history of peptic ulcer disease (principal); K31.7 Polyp of stomach and duodenum; K21.9 Gastro-esophageal reflux disease without esophagitis; I11.9 Hypertensive heart disease without heart failure; I25.10 Atherosclerotic heart disease of native coronary artery without angina pectoris; M19.90 Unspecified osteoarthritis, unspecified site; F32.9 Major depressive disorder, single episode, unspecified; I38 Endocarditis, valve unspecified; D64.9 Anemia, unspecified; I49.9 Cardiac arrhythmia, unspecified; I51.9 Heart disease, unspecified; I99.8 Other disorder of circulatory system; G47.00 Insomnia, unspecified; Z87.891 Personal history of nicotine dependence; F12.90 Cannabis use, unspecified, uncomplicated; Z79.01 Long term (current) use of anticoagulants
CPT/HCPCS: 43239; 87081; J2704; J7120

== ENCOUNTER → 2020-12-24 13:41 | Outpatient (CLI) | payer MEDICARE, SELFPAY ==
--- NOTE | ~2020-12-24 | CT_ITS ---
EXAMINATION: CT lumbar spine wo con DATE: 12/24/2020 14:06 INDICATION: Lumbar spinal stenosis. TECHNIQUE: Computed tomography (CT) of the lumbar spine was performed without intravenous contrast. A utomated exposure control and iterative reconstruction technique were employed. The dose-length produ ct was 879.56 mGy-cm. COMPARISON: Lumbar spine MRI 04/16/2018 FINDINGS: There is 5 degrees levocurvature of lumbar spine. Vertebral body heights are normal. There is mildly decreased disc height at L1-L2, L4-L5, and L5-S1. The following disc levels are specificall y discussed: L1-L2: The disc is mildly bulging. There is mild bilateral facet joint osteoarthritis. There is mild bilateral neural foraminal stenosis. There is mild central canal stenosis. L2-L3: The disc is bulging. There is severe bilateral facet joint osteoarthritis. There is mild bilat eral neural foraminal stenosis. There is no central canal stenosis. L3-L4: The disc is bulging. There is severe bilateral facet joint osteoarthritis. There is mild bilat eral neural foraminal stenosis. There is no central canal stenosis. L4-L5: The disc is bulging. There is severe bilateral facet joint osteoarthritis. There is mild bilat eral neural foraminal stenosis. There is mild central canal stenosis. L5-S1: The disc is bulging. There is severe bilateral facet joint osteoarthritis. There is mild bilat eral neural foraminal stenosis. There is mild central canal stenosis. IMPRESSION: 1. Mild lumbar spondylosis, stable from 04/16/2018. Reviewed, dictated and finalized at location B.
--- NOTE | ~2020-12-24 | CT_ITS ---
EXAMINATION: CT cervical spine wo con DATE: 12/24/2020 14:06 INDICATION: Cervical radiculopathy. TECHNIQUE: Computed tomography (CT) of the cervical spine was performed without intravenous contrast. Automated exposure control and iterative reconstruction technique were employed. The dose-length pro duct was 334.33 mGy-cm. COMPARISON: Cervical spine MRI 07/17/2014 FINDINGS: There is 5 degrees dextrocurvature of cervical spine. Vertebral body heights are normal. Th ere is mildly decreased disc height at C4-C5 and C5-C6. The following disc levels are specifically di scussed: C2-C3: There is no uncovertebral joint osteoarthritis. There is severe left facet joint osteoarthriti s. There is ankylosis of right facet joint with mild hypertrophy. There is no neural foraminal stenos is. There is no central canal stenosis. C3-C4: There is mild bilateral uncovertebral joint osteoarthritis. There is severe bilateral facet chana int osteoarthritis. There is mild bilateral neural foraminal stenosis. There is no central canal sten osis. C4-C5: There is mild bilateral uncovertebral joint osteoarthritis. There is severe bilateral facet chana int osteoarthritis. There is mild bilateral neural foraminal stenosis. There is no central canal sten osis. C5-C6: There is mild bilateral uncovertebral joint osteoarthritis. There is severe bilateral facet chana int osteoarthritis. There is mild bilateral neural foraminal stenosis. There is no central canal sten osis. C6-C7: There is no uncovertebral joint osteoarthritis. There is severe bilateral facet joint osteoart hritis. There is mild bilateral neural foraminal stenosis. There is no central canal stenosis. C7-T1: There is no uncovertebral joint osteoarthritis. There is severe bilateral facet joint osteoart hritis. There is mild bilateral neural foraminal stenosis. There is no central canal stenosis. IMPRESSION: 1. Mild cervical spondylosis. Reviewed, dictated and finalized at location B.
== END ==
PROVIDERS: PCP Family Medicine
DX: M47.812 Spondylosis without myelopathy or radiculopathy, cervical region (principal); M48.062 Spinal stenosis, lumbar region with neurogenic claudication; M47.816 Spondylosis without myelopathy or radiculopathy, lumbar region
CPT/HCPCS: 72125; 72131

== ENCOUNTER 2021-03-17 17:18 | Emergency (ER) | payer MEDICARE, SELFPAY ==
[2021-03-17 17:24] VITALS: BP 119/81; PULSE 78; RESP 16; TEMP 36.3; O2SAT 97
--- NOTE | 2021-03-17 17:37 | ED.EYEPROB ---
HPI - Eye Problem General Chief complaint: Eye Problems Stated complaint: L EYE REDNESS Time Seen by Provider: 03/17/21 17:31 Source: patient and RN notes reviewed Mode of arrival: ambulatory Limitations: no limitations History of Present Illness HPI Narrative: Patient presents today complaining of left eye redness that he noted this morning when he looked in the mirror. Denies pain or itching. Denies any injury to the eye. Denies any drainage or matting. He has tried no [id number] treatment prior to arrival. Patient is on Eliquis. States he was lifting heavy baskets yesterday when he was doing his laundry. chief complaint: eye redness Related Data Home Medications Medication Instructions Recorded Confirmed apixaban 5 mg tablet 5 mg PO BID 07/09/19 12/18/20 coenzyme Q10 200 mg capsule 200 mg PO DAILY 07/09/19 12/18/20 magnesium 200 mg tablet 200 mg PO DAILY 07/09/19 12/18/20 sacubitril 24 mg-valsartan 26 mg 1 tablet PO BID 07/09/19 12/18/20 tablet atorvastatin 40 mg tablet 40 mg PO DAILY tablet 03/03/20 12/18/20 multivitamin 1 tablet PO DAILY 03/03/20 12/18/20 sotalol 120 mg tablet 120 mg PO Q12H tablet 03/03/20 12/18/20 furosemide 20 mg PO QAM 03/19/20 12/18/20 buspirone 5 mg PO TID 07/29/20 12/18/20 calcium carbonate [Calcium 600] 600 mg PO DAILY 07/29/20 12/18/20 Allergies Allergy/AdvReac Type Severity Reaction Status Date / Time celecoxib Allergy Intermediate Gastrointestinal Verified 12/18/20 13:04 Upset ciprofloxacin Allergy Intermediate Muscle pain Verified 12/18/20 13:04 latex Allergy Intermediate Rash Verified 12/18/20 13:04 NSAIDS (Non-Steroidal Allergy Intermediate Gastrointestinal Verified 12/18/20 13:04 Anti-Inflamma Upset Review of Systems Review of Systems: Narrative: CONSTITUTIONAL: Denies body aches, fever, chills, or sweats. EYES: Denies visual changes, or discharge.+ Left eye redness ENT: Denies rhinorrhea, congestion, sore throat, or otalgia. CARDIOVASCULAR: Denies chest pain, palpitations, or edema. RESPIRATORY: Denies cough or dyspnea. GASTROINTESTINAL: Denies abdominal pain, nausea, vomiting, or diarrhea. GENITOURINARY: Denies dysuria or hematuria. SKIN: Denies rash, itching, or wounds. MUSCULOSKELETAL: Denies back pain, joint pain, or myalgia. NEUROLOGIC: Denies headache, numbness, tingling, or weakness. PSYCH: Denies depression or anxiety. [facility] Past Medical History Medical History Anemia Arrhythmia Cholecystostomy care Chronic insomnia Coronary artery disease Degenerative arthritis of knee, bilateral Depression Epigastric pain GERD (gastroesophageal reflux disease) Heart disease Hernia History of gastroesophageal reflux (GERD) History of stomach ulcers Hypertension Vascular disease Surgical History Surgical History History of cholecystectomy History of hernia repair History of permanent cardiac pacemaker placement Family History Family History Mother Hypertension Patient's mother is in good health Sibling Hypertension Father Family history of heart disease in male family member before age 55 Other Cerebrovascular accident Diabetes mellitus Family history of arthritis Family history of cardiovascular disease Family history of kidney disease Social History Social History Smoking packs per day: 1 Smoking cigarettes per day: 20.0 Years smoked: 11 Smoking pack-years: 11.00 Smoking status: Former smoker Tobacco type: cigarettes Second hand tobacco smoke exposure: No Smoking end date: 09/04/71 Alcohol intake: current Drinks per week: 7 Alcohol use details: WINE Substance use: never Substance use type: does not use Other substance usage details: GUMMIES OCC. FOR KNEE ROBBIN
== END 2021-03-17 17:46 | disposition home or self-care (01) ==
PROVIDERS: Emergency Provider Nurse Practitioner; PCP Family Medicine
DX: H11.32 Conjunctival hemorrhage, left eye (principal); Z87.891 Personal history of nicotine dependence; I25.10 Atherosclerotic heart disease of native coronary artery without angina pectoris; M17.0 Bilateral primary osteoarthritis of knee; F32.9 Major depressive disorder, single episode, unspecified; K21.9 Gastro-esophageal reflux disease without esophagitis; I10 Essential (primary) hypertension; I99.9 Unspecified disorder of circulatory system; Z95.0 Presence of cardiac pacemaker
CPT/HCPCS: 99212; G0463

== ENCOUNTER 2021-08-24 11:10 | Outpatient (CLI) | payer MEDICARE, SELFPAY ==
--- NOTE | ~2021-08-24 | XR_ITS ---
XR chest 2V 08/24/2021 11:51 Indication: Weakness, dizziness, shortness of breath and CHF Procedure: 2 view chest Comparison: Comparison to multiple prior studies sequentially, with oldest reviewed study dated 04/29. Findings: Heart size normal. No focal air space disease, pulmonary edema, pleural effusion or suspect ed pneumothorax. No acute osseous abnormality. Pacemaker leads are stable. There are cholecystectomy clips. Impression: 1: No acute cardiopulmonary disease. Reviewed, dictated and finalized at location A. R PROCESSOR Impression: 1: No acute cardiopulmonary disease.
[2021-08-24 11:55] LABS: Basophils Absolute Auto 0.1 K/mm3 (0.0-0.1); Basophils Percent Auto 0.9 % (0.2-1.2); Eosinophils Absolute Auto 0.2 K/mm3 (0-0.3); Eosinophils Percent Auto 3.6 % (0-4.4); Hematocrit 43.5 % (42.0-52.0); Hemoglobin 14.9 g/dL (14.0-18.0); Immature Granulocyte Absolute 0.02 K/mm3 (0.00-0.031); Immature Granulocyte Percent A 0.4 % (0-0.5); Lymphocytes Absolute Auto 1.94 K/mm3 (0.9-3.2); Lymphocytes Percent Auto 34.5 % (18.3-44.2); Mean Corpuscular HGB Conc 34.3 g/dl (32-36); Mean Corpuscular Hemoglobin 31.2 pg (26-34); Mean Corpuscular Volume 91.2 fl (80-100); Mean Platelet Volume 8.5 fl (7.4-10.4); Monocytes Absolute Auto 0.6 K/mm3 (0.1-0.6); Neutrophils Absolute Auto 2.8 K/mm3 (1.3-6.7); Neutrophils Percent Auto 49.6 % (45.5-73.1); Platelet Count Result 215 k/mm3 (150-375); Red Blood Count 4.77 M/mm3 (4.6-6.20); Red Cell Distribution Width 12.9 % (11.5-14.5); White Blood Count 5.6 K/mm3 (4.5-10.0)
[2021-08-24 12:15] LABS: NT Pro B Type Natriuretic Pept 216 pg/mL (5-100)
[2021-08-24 12:27] LABS: D Dimer 0.27 ug/mL (<0.48)
[2021-08-24 12:28] LABS: Alanine Aminotransferase 32 U/L (4-50); Albumin Level 4.4 g/dL (3.5-5.1); Alkaline Phosphatase 48 U/L (38-126); Amylase 99 U/L (30-110); Anion Gap 4 mmol/L (8-16); Aspartate Amino Transferase 30 U/L (17-59); Bilirubin,Total 0.9 mg/dL (0.2-1.3); Blood Urea Nitrogen 11 mg/dL (9-20); Calcium 8.9 mg/dL (8.4-10.2); Carbon Dioxide 31 mmol/L (22-30); Chloride 93 mmol/L (98-107); Estimated Glomerular Filt Rate > 60; Glucose 84 mg/dL (65-110); Lipase 321 U/L (23-300); Potassium 3.8 mmol/L (3.4-5.0); Sodium 128 mmol/L (137-145)
== END 2021-08-24 11:11 | disposition home or self-care (01) ==
PROVIDERS: PCP Family Medicine; Visit Provider Physician Assistant
DX: R06.02 Shortness of breath (principal); I50.9 Heart failure, unspecified; D64.9 Anemia, unspecified; R10.9 Unspecified abdominal pain; R00.2 Palpitations; R42 Dizziness and giddiness; R53.83 Other fatigue; F51.04 Psychophysiologic insomnia
CPT/HCPCS: 36415; 71046; 80053; 82150; 83690; 83880; 85025; 85380

== ENCOUNTER 2021-08-26 08:12 | Outpatient (CLI) | payer MEDICARE, SELFPAY ==
[2021-08-26 08:49] LABS: Anion Gap 6 mmol/L (8-16); Blood Urea Nitrogen 15 mg/dL (9-20); Calcium 8.9 mg/dL (8.4-10.2); Carbon Dioxide 28 mmol/L (22-30); Chloride 98 mmol/L (98-107); Estimated Glomerular Filt Rate > 60; Glucose 125 mg/dL (65-110); Potassium 3.8 mmol/L (3.4-5.0); Sodium 132 mmol/L (137-145)
== END 2021-08-26 08:13 | disposition home or self-care (01) ==
PROVIDERS: PCP Family Medicine; Visit Provider Physician Assistant
DX: E87.1 Hypo-osmolality and hyponatremia (principal)
CPT/HCPCS: 36415; 80048

== ENCOUNTER 2021-09-10 20:19 | Emergency (ER) | payer MEDICARE, SELFPAY ==
[2021-09-10] VITALS (11 sets, daily range): BP systolic 129–147; BP diastolic 71–80; PULSE 60–83; RESP 14–23; O2SAT 94–97
--- NOTE | ~2021-09-10 | XR_ITS ---
EXAMINATION: XR chest 1V portable EXAM DATE: 09/10/2021 21:07 INDICATION: Shortness of breath. TECHNIQUE: Portable AP frontal chest x-ray was obtained. Comparison is made to prior examination from 08/23/21. FINDINGS: Pacemaker/AICD device. The cardiomediastinal silhouette is prominent but magnified on this AP technique. No confluent consolidation, pneumothorax or pleural effusion suspected. There are no os seous abnormalities identified. IMPRESSION: No acute cardiopulmonary findings. Reviewed, dictated and finalized at location G. R ENGINEER
--- NOTE | 2021-09-10 20:55 | ECG_ITS ---
Measurements Intervals [place] Rate: 64 P: 114 IN: 172 QRS: 246 QRSD: 158 T: -63 QT: 448 QTc: 463 Interpretive Statements ELECTRONIC ATRIAL PACEMAKER WITH INHIBITION ELECTRONIC VENTRICULAR PACEMAKER VENTRICULAR PREMATURE COMPLEXES NO FURTHER INTERPRETATION IS POSSIBLE BORDERLINE ECG Electronically Signed On 09-11-2021 6:27:50 STOCK ORDER LISTER by Preet Murillo D.O.
[2021-09-10 21:21] LABS: Basophils Absolute Auto 0.1 K/mm3 (0.0-0.1); Eosinophils Absolute Auto 0.1 K/mm3 (0-0.3); Eosinophils Percent Auto 2.7 % (0-4.4); Hematocrit 38.7 % (42.0-52.0); Hemoglobin 13.2 g/dL (14.0-18.0); Immature Granulocyte Absolute 0.02 K/mm3 (0.00-0.031); Immature Granulocyte Percent A 0.4 % (0-0.5); Lymphocytes Absolute Auto 2.25 K/mm3 (0.9-3.2); Lymphocytes Percent Auto 42.9 % (18.3-44.2); Mean Corpuscular HGB Conc 34.1 g/dl (32-36); Mean Corpuscular Hemoglobin 31.4 pg (26-34); Mean Corpuscular Volume 91.9 fl (80-100); Mean Platelet Volume 8.5 fl (7.4-10.4); Monocytes Absolute Auto 0.6 K/mm3 (0.1-0.6); Neutrophils Absolute Auto 2.2 K/mm3 (1.3-6.7); Platelet Count Result 235 k/mm3 (150-375); Red Blood Count 4.21 M/mm3 (4.6-6.20); White Blood Count 5.3 K/mm3 (4.5-10.0)
[2021-09-10 21:23] LABS: Add Urine Microscopic? NO; Appearance Urine Clear (Clear); Bilirubin Urine Negative (Negative); Blood Urine Negative (Negative); Color Urine Yellow (Yellow); Glucose Urine UA Negative (Negative); Ketones Urine Negative (Negative); Leukocyte Esterase Ur Negative LEU/UL (Negative); Nitrate Urine Negative (Negative); Protein Urine Negative (Negative); Specific Grav Ur 1.017 (1.001-1.035); Urobilinogen Urine Negative mg/dL (<2.0)
[2021-09-10 21:36] LABS: INR 1.1; Prothrombin Time 13.6 Seconds (11.1-14.7)
[2021-09-10 21:37] LABS: Partial Thromboplastin Time 29.6 SECONDS (22.3-36.8)
[2021-09-10 21:38] LABS: Alanine Aminotransferase 26 U/L (4-50); Albumin Level 4.1 g/dL (3.5-5.1); Alkaline Phosphatase 50 U/L (38-126); Anion Gap 8 mmol/L (8-16); Aspartate Amino Transferase 31 U/L (17-59); Bilirubin,Total 0.5 mg/dL (0.2-1.3); Blood Urea Nitrogen 17 mg/dL (9-20); Calcium 9.1 mg/dL (8.4-10.2); Carbon Dioxide 24 mmol/L (22-30); Chloride 105 mmol/L (98-107); Estimated CRCL calculation 71 ml/min; Estimated Glomerular Filt Rate > 60; Glucose 135 mg/dL (65-110); Potassium 3.8 mmol/L (3.4-5.0); Sodium 137 mmol/L (137-145)
[2021-09-10 21:50] LABS: NT Pro B Type Natriuretic Pept 110 pg/mL (5-100); Troponin I < 0.012 ng/mL (0.000-0.034)
--- NOTE | 2021-09-10 23:09 | PC.NURSE ---
Report received from CLARISSA Oliveira. Assumed care of patient at this time.
--- NOTE | 2021-09-10 23:12 | ED.GENADULT ---
HPI - General Adult General Chief complaint: Unspecified Stated complaint: Accidentally took too much meds last night Time Seen by Provider: 09/10/21 20:49 History of Present Illness HPI narrative: Patient 81-year-old gentleman who presents the emergency department with chief complaint of shortness of breath. The patient states that last night he believes he may have taken too much of his medications. The patient states that has been a little more short of breath recently and getting short of breath with exertion the patient states he had no weight gain but has actually lost some weight patient states he has history of congestive heart failure and is followed by cardiology the patient denies fever denies chills denies syncope. Patient denies blood in stool or black tarry stools Related Data Home Medications Medication Instructions Recorded Confirmed apixaban 5 mg tablet 5 mg PO BID 07/09/19 09/09/21 coenzyme Q10 200 mg capsule 200 mg PO DAILY 07/09/19 09/09/21 magnesium 200 mg tablet 200 mg PO DAILY 07/09/19 09/09/21 sacubitril 24 mg-valsartan 26 mg 1 tablet PO BID 07/09/19 09/09/21 tablet atorvastatin 40 mg tablet 40 mg PO DAILY tablet 03/03/20 09/09/21 multivitamin 1 tablet PO DAILY 03/03/20 09/09/21 sotalol 120 mg tablet 120 mg PO Q12H tablet 03/03/20 09/09/21 furosemide 20 mg PO QAM 03/19/20 09/09/21 calcium carbonate [Calcium 600] 600 mg PO DAILY 07/29/20 09/09/21 Allergies Allergy/AdvReac Type Severity Reaction Status Date / Time celecoxib Allergy Intermediate Gastrointestinal Verified 09/09/21 13:58 Upset ciprofloxacin Allergy Intermediate Muscle pain Verified 09/09/21 13:58 latex Allergy Intermediate Rash Verified 09/09/21 13:58 NSAIDS (Non-Steroidal Allergy Intermediate Gastrointestinal Verified 09/09/21 13:58 Anti-Inflamma Upset Review of Systems Review of Systems: A 10 system review of systems was completed on the patient and is negative except for what is stated in the HPI. Nursing and ancillary documentation was reviewed. [facility] Past Medical History Medical History Anemia Arrhythmia Cholecystostomy care Chronic insomnia Coronary artery disease Degenerative arthritis of knee, bilateral Depression Epigastric pain GERD (gastroesophageal reflux disease) Heart disease Hernia History of gastroesophageal reflux (GERD) History of stomach ulcers Hypertension CORNEL (obstructive sleep apnea) Vascular disease Surgical History Surgical History History of cholecystectomy History of hernia repair History of permanent cardiac pacemaker placement Family History Family History Mother Hypertension Patient's mother is in good health Sibling Hypertension Father Family history of heart disease in male family member before age 55 Other Cerebrovascular accident Diabetes mellitus Family history of arthritis Family history of cardiovascular disease Family history of kidney disease Social History Social History Smoking packs per day: 1 Smoking cigarettes per day: 20.0 Years smoked: 11 Smoking pack-years: 11.00 Tobacco type: cigarettes Second hand tobacco smoke exposure: No Smoking end date: 09/04/71 Alcohol intake: former Drinks per week: 7 Alcohol use details: WINE Substance use: never Substance use type: does not use Other substance usage details: GUMMIES OCC. FOR KNEE PAIN CBD Gender identity (if verbalized by the patient): Male Sexual Orientation (if Verbalized by the Patient): Straight or Heterosexual Spiritual care concerns: No Exam Narrative: GENERAL: Well-appearing, well-nourished, and in no acute distress. HEAD: Normocephalic, atraumatic. EYES: PERRLA and EOMI. ENT: Nares clear, no rhinorrhea or
[2021-09-10] MEDS: FUROSEMIDE 10 MG TABLET PO (23:41)
== END 2021-09-10 23:53 | disposition home or self-care (01) ==
PROVIDERS: Emergency Provider Emergency Medicine; PCP Family Medicine
DX: R06.00 Dyspnea, unspecified (principal); I50.9 Heart failure, unspecified; I11.0 Hypertensive heart disease with heart failure; D64.9 Anemia, unspecified; I25.10 Atherosclerotic heart disease of native coronary artery without angina pectoris; G47.33 Obstructive sleep apnea (adult) (pediatric); I99.9 Unspecified disorder of circulatory system; F32.A Depression, unspecified; K21.9 Gastro-esophageal reflux disease without esophagitis; M17.0 Bilateral primary osteoarthritis of knee; Z95.0 Presence of cardiac pacemaker; Z87.891 Personal history of nicotine dependence; Z79.01 Long term (current) use of anticoagulants; I49.3 Ventricular premature depolarization
CPT/HCPCS: 36415; 71045; 80053; 81003; 83735; 83880; 84484; 85025; 85610; 85730; 93005; 99284; A9270

== ENCOUNTER 2022-10-20 12:20 | Outpatient (CLI) | payer MEDICARE, SELFPAY ==
--- NOTE | ~2022-10-20 | XR_ITS ---
XR shoulder LT min 2V 10/20/2022 13:15 Indication: Left shoulder pain Procedure: 4 views left shoulder Comparison: No prior studies for comparison. Findings: There is mild polyarticular osteoarthritis of the left shoulder. Osteopenia. No acute fract ure or traumatic malalignment. Pacemaker battery pack overlies the left upper chest. Impression: 1: Mild polyarticular osteoarthritis. Reviewed, dictated and finalized at location A. IVIST ECONOMIC HISTORY Impression: 1: Mild polyarticular osteoarthritis.
--- NOTE | ~2022-10-20 | XR_ITS ---
XR shoulder RT min 2V 10/20/2022 13:15 Indication: Right shoulder pain Procedure: 4 views right shoulder Comparison: No prior studies for comparison. Findings: There is mild polyarticular osteoarthritis of the right shoulder. Osteopenia. No acute frac ture or traumatic malalignment. No soft tissue abnormality. No foreign bodies. Impression: 1: Mild polyarticular osteoarthritis. Reviewed, dictated and finalized at location A. NT [place]ON MAINTENANCE Impression: 1: Mild polyarticular osteoarthritis.
--- NOTE | ~2022-10-20 | XR_ITS ---
XR cervical spine 4-5V 10/20/2022 13:15 Indication: Neck pain Procedure: 5 views of the cervical spine Comparison: Comparison to multiple prior studies sequentially, with oldest reviewed study dated 07/05. Findings: Lung apices are normal. Vertebral body heights are maintained. No significant disc narrowin g. There is advanced multilevel facet hypertrophy which has progressed since prior examination. Odont oid process is normal. Lateral masses normally aligned. Impression: 1: Moderate cervical spondylosis. Reviewed, dictated and finalized at location A. CAL SALES REPRESENTATIVE Impression: 1: Moderate cervical spondylosis.
== END 2022-10-20 12:21 | disposition home or self-care (01) ==
PROVIDERS: PCP Family Medicine; Visit Provider Physician Assistant
DX: M47.812 Spondylosis without myelopathy or radiculopathy, cervical region (principal); M25.511 Pain in right shoulder; M25.512 Pain in left shoulder
CPT/HCPCS: 72050; 73030

== ENCOUNTER 2022-11-25 08:38 | Outpatient (CLI) | payer MEDICARE, SELFPAY ==
[2022-11-25 09:51] LABS: Basophils Percent Auto 0.8 % (0.2-1.2); Eosinophils Percent Auto 0.8 % (0-4.4); Hematocrit 42.7 % (42.0-52.0); Hemoglobin 14.3 g/dL (14.0-18.0); Immature Granulocyte Absolute 0.02 K/mm3 (0.00-0.031); Immature Granulocyte Percent A 0.4 % (0-0.5); Lymphocytes Absolute Auto 1.82 K/mm3 (0.9-3.2); Lymphocytes Percent Auto 34.5 % (18.3-44.2); Mean Corpuscular HGB Conc 33.5 g/dl (32-36); Mean Corpuscular Hemoglobin 31.2 pg (26-34); Mean Corpuscular Volume 93.2 fl (80-100); Mean Platelet Volume 8.6 fl (7.4-10.4); Monocytes Absolute Auto 0.5 K/mm3 (0.1-0.6); Monocytes Percent Auto 10.1 % (2.6-8.5); Neutrophils Absolute Auto 2.8 K/mm3 (1.3-6.7); Neutrophils Percent Auto 53.4 % (45.5-73.1); Platelet Count Result 229 k/mm3 (150-375); Red Blood Count 4.58 M/mm3 (4.6-6.20); Red Cell Distribution Width 13.1 % (11.5-14.5); White Blood Count 5.3 K/mm3 (4.5-10.0)
[2022-11-25 09:57] LABS: Alanine Aminotransferase 41 U/L (6-50); Albumin Level 3.9 g/dL (3.5-5.1); Alkaline Phosphatase 47 U/L (38-126); Anion Gap 5 mmol/L (8-16); Aspartate Amino Transferase 29 U/L (17-59); Bilirubin,Total 0.9 mg/dL (0.2-1.3); Blood Urea Nitrogen 11 mg/dL (9-20); Calcium 8.5 mg/dL (8.4-10.2); Carbon Dioxide 32 mmol/L (22-30); Chloride 99 mmol/L (98-107); Estimated Glomerular Filt Rate > 60; Glucose 88 mg/dL (65-110); Potassium 3.9 mmol/L (3.4-5.0); Sodium 136 mmol/L (137-145)
== END 2022-11-25 08:39 | disposition home or self-care (01) ==
PROVIDERS: PCP Family Medicine; Visit Provider Physician Assistant
DX: R19.7 Diarrhea, unspecified (principal); I10 Essential (primary) hypertension; D64.9 Anemia, unspecified; F51.04 Psychophysiologic insomnia
CPT/HCPCS: 36415; 80053; 84443; 85025

== ENCOUNTER 2023-01-11 16:40 | Emergency (ER) | payer MEDICARE, SELFPAY ==
[2023-01-11 17:10] VITALS: BP 134/84; PULSE 69; RESP 18; TEMP 36.1; O2SAT 99
--- NOTE | 2023-01-11 17:19 | ED.WOUNDLAC ---
HPI - Wound/Laceration General Stated Complaint: WOUND CHECK TO LEFT HAND Time Seen by Provider: 01/11/23 17:20 Source: patient Mode of arrival: ambulatory Limitations: no limitations History of Present Illness HPI narrative: 82 y/o male presented for wound recheck. Patient sustained a skin avulsion 4 days ago, when reaching into his chair and scraped the hand on the metal frame. He did not seek treatment at that time. Two days later, he was seen by his urologist who prescribed an antibiotic for the hand in case of infection. Taking medication as directed. He would like re-evaluation to make sure it is healing properly. Has kept a bandaid on at night and when wearing sun protecting gloves during the day. Denies significant pain, redness, drainage or fever. Related Data Home Medications Medication Instructions Recorded Confirmed apixaban 5 mg tablet (Eliquis) 5 mg PO BID 07/09/19 01/11/23 coenzyme Q10 200 mg capsule (Co 200 mg PO DAILY 07/09/19 01/11/23 Q-10) magnesium 200 mg tablet 200 mg PO DAILY 07/09/19 01/11/23 sacubitril 24 mg-valsartan 26 mg 1 tablet PO BID 07/09/19 01/11/23 tablet (Entresto) atorvastatin 40 mg tablet 40 mg PO DAILY 03/03/20 01/11/23 sotalol 120 mg tablet 120 mg PO Q12H 03/03/20 01/11/23 furosemide 20 mg tablet 20 mg PO QAM 03/19/20 01/11/23 calcium carbonate 600 mg calcium 600 mg PO DAILY 07/29/20 01/11/23 (1,500 mg) tablet (Calcium) minoxidil 5 %-finasteride 0.1 % 5 ml topical DIRECTED 10/12/22 01/11/23 topical solution polyethylene glycol 3350 17 17 g PO DAILY 10/12/22 01/11/23 gram/dose oral powder amlodipine 5 mg tablet 7.5 mg .Route .COMPLEX 11/25/22 01/11/23 atorvastatin 40 mg tablet mg 01/11/23 buspirone 15 mg tablet 15 mg PO BID 01/11/23 01/11/23 cephalexin 500 mg capsule 500 mg PO DIRECTED 01/11/23 01/11/23 finasteride 5 mg tablet 5 mg PO DAILY 01/11/23 01/11/23 prochlorperazine maleate 10 mg 10 mg PO DAILY 01/11/23 01/11/23 tablet Allergies Allergy/AdvReac Type Severity Reaction Status Date / Time celecoxib Allergy Intermediate Gastrointestinal Verified 01/11/23 17:21 Upset ciprofloxacin Allergy Intermediate Muscle pain Verified 01/11/23 17:21 latex Allergy Intermediate Rash Verified 01/11/23 17:21 NSAIDS (Non-Steroidal Allergy Intermediate Gastrointestinal Verified 01/11/23 17:21 Anti-Inflamma Upset Review of Systems Review of Systems: CONSTITUTIONAL: Denies body aches, fever, chills, or sweats. EYES: Denies visual changes, redness, or discharge. ENT: Denies rhinorrhea, congestion CARDIOVASCULAR: Denies chest pain, palpitations, or edema. RESPIRATORY: Denies cough or dyspnea. GASTROINTESTINAL: Denies abdominal pain, nausea, vomiting, or diarrhea. SKIN: per HPI MUSCULOSKELETAL: Denies back pain, joint pain, or myalgia. NEUROLOGIC: Denies headache, numbness, tingling, or weakness. [facility] Past Medical History Medical History Anemia Arrhythmia Cholecystostomy care Chronic insomnia Coronary artery disease Degenerative arthritis of knee, bilateral Depression Epigastric pain GERD (gastroesophageal reflux disease) Heart disease Hernia History of gastroesophageal reflux (GERD) History of stomach ulcers Hypertension CORNEL (obstructive sleep apnea) Vascular disease Surgical History Surgical History History of cholecystectomy History of hernia repair History of permanent cardiac pacemaker placement Family History Family History Mother Hypertension Patient's mother is in good health Sibling Hypertension Father Family history of heart disease in male family member before age 55 Other Cerebrovascular accident Diabetes mellitus Family history of arthritis Family history of cardiovascular disease Family history of kidney disease Social History Social History
== END 2023-01-11 17:35 | disposition home or self-care (01) ==
PROVIDERS: Emergency Provider Nurse Practitioner Family; PCP Family Medicine
DX: Z48.00 Encounter for change or removal of nonsurgical wound dressing (principal); I25.10 Atherosclerotic heart disease of native coronary artery without angina pectoris; M17.0 Bilateral primary osteoarthritis of knee; K21.9 Gastro-esophageal reflux disease without esophagitis; I10 Essential (primary) hypertension; F32.A Depression, unspecified; Z95.0 Presence of cardiac pacemaker
CPT/HCPCS: 99211; G0463

== ENCOUNTER 2023-10-02 19:47 | Emergency (ER) | payer MEDICARE, SELFPAY ==
[2023-10-02 19:52] VITALS: BP 139/86; PULSE 78; RESP 16; TEMP 36.2; O2SAT 99
--- NOTE | 2023-10-02 19:53 | ED.GENADULT ---
HPI - General Adult General Chief complaint: Wound/Laceration Stated complaint: Cut arm Source: patient, RN notes reviewed and old records reviewed Mode of arrival: ambulatory Limitations: no limitations History of Present Illness HPI narrative: 83-year-old male patient presents to [facility] with complaints abrasion, bruising to back of right hand/ wrist this started 3 days ago. Patient states toward the lid slipped and fell and hit his hand. Patient has been cleaning area applying antibiotic ointment. Patient just wanted make sure area was not effective. Related Data Home Medications Medication Instructions Recorded Confirmed apixaban 5 mg tablet (Eliquis) 5 mg PO BID 07/09/19 10/02/23 coenzyme Q10 200 mg capsule (Co 200 mg PO DAILY 07/09/19 10/02/23 Q-10) magnesium 200 mg tablet 200 mg PO DAILY 07/09/19 10/02/23 sacubitril 24 mg-valsartan 26 mg 1 tablet PO BID 07/09/19 10/02/23 tablet (Entresto) sotalol 120 mg tablet 120 mg PO Q12H 03/03/20 10/02/23 furosemide 20 mg tablet 20 mg PO QAM 03/19/20 10/02/23 calcium carbonate 600 mg calcium 600 mg PO DAILY 07/29/20 10/02/23 (1,500 mg) tablet (Calcium) minoxidil 5 %-finasteride 0.1 % 5 ml topical DIRECTED 10/12/22 10/02/23 topical solution polyethylene glycol 3350 17 17 g PO DAILY 10/12/22 10/02/23 gram/dose oral powder atorvastatin 40 mg tablet 40 mg PO DAILY 01/11/23 10/02/23 finasteride 5 mg tablet 5 mg PO DAILY 01/11/23 10/02/23 prochlorperazine maleate 10 mg 10 mg PO DAILY 01/11/23 10/02/23 tablet amlodipine 5 mg tablet 5 mg PO DAILY 09/05/23 10/02/23 Allergies Allergy/AdvReac Type Severity Reaction Status Date / Time celecoxib Allergy Intermediate Gastrointestinal Verified 10/02/23 20:00 Upset ciprofloxacin Allergy Intermediate Muscle pain Verified 10/02/23 20:00 latex Allergy Intermediate Rash Verified 10/02/23 20:00 NSAIDS (Non-Steroidal Allergy Intermediate Gastrointestinal Verified 10/02/23 20:00 Anti-Inflamma Upset Review of Systems Constitutional: Constitutional: Reports no additional constitutional complaints, Denies body ache(s), Denies chills, Denies fatigue, Denies fever(s) and Denies headache(s) Eyes: Eyes: Reports no additional eye complaints and Denies blurry vision ENT: Reports system reviewed and no additional complaints, except as documented, Denies vertigo, Denies dizziness, Denies ear discharge, Denies otalgia, Denies facial pain, Denies headache(s), Denies nasal congestion, Denies nasal discharge, Denies sinus pain, Denies sinus pressure and Denies sore throat Cardiovascular: Cardiovascular: Reports no additional cardiovascular complaints, Denies chest pain, Denies chest pain at rest, Denies rapid heart rate and Denies dyspnea Respiratory: Respiratory: Reports no additional respiratory complaints, Denies chest congestion, Denies cough, Denies pain on inspiration, Denies pain with cough and Denies dyspnea Gastrointestinal: Gastrointestinal: Denies abdominal pain, Denies diarrhea, Denies nausea and Denies vomiting Integumentary/Breasts: Skin/Breast: Reports change in pigmentation ( ecchymosis to right), Denies rash and Reports wounds ( abrasion to right wrist) Neurologic: Reports system reviewed and no additional complaints, except as documented, Denies vertigo, Denies dizziness and Denies headache(s) Endocrine: Endocrine: Denies fatigue PMFSH Past Medical History Medical History Anemia Arrhythmia Cholecystostomy care Chronic insomnia Coronary artery disease Degenerative arthritis of knee, bilateral Depression Epigastric pain GERD (gastroesophageal reflux disease) Heart disease Hernia History of gastroesophageal reflux (GERD) History of stomach ulcers Hypertension Hypertensive heart disease with heart failure CORNEL (obstructive sleep apnea) Paroxysmal A-fib Vascular disease Surgical History Surgical History (Reviewed 10/02/23 @ 19:53 by Berenice Blount
== END 2023-10-02 20:05 | disposition home or self-care (01) ==
PROVIDERS: Emergency Provider Registered Nurse; PCP Family Medicine
DX: S60.811A Abrasion of right wrist, initial encounter (principal); S60.221A Contusion of right hand, initial encounter; W01.0XXA Fall on same level from slipping, tripping and stumbling without subsequent striking against object, initial encounter; I25.10 Atherosclerotic heart disease of native coronary artery without angina pectoris; M17.0 Bilateral primary osteoarthritis of knee; K21.9 Gastro-esophageal reflux disease without esophagitis; I10 Essential (primary) hypertension; I50.9 Heart failure, unspecified; I48.0 Paroxysmal atrial fibrillation; Z79.01 Long term (current) use of anticoagulants
CPT/HCPCS: 99213; G0463

== ENCOUNTER 2023-11-16 08:28 | Outpatient (CLI) | payer MEDICARE, SELFPAY ==
--- NOTE | ~2023-11-16 | CT_ITS ---
EXAMINATION: CTA chest DATE: 11/16/2023 09:15 INDICATION: Sinus of Valsalva aneurysm TECHNIQUE: Computed tomographic angiography (CTA) of the chest was performed without and with 100 mL Omnipaque-350 intravenous contrast. Volume-rendered 3D-reconstructions of the aorta and large arterie s were constructed by the technologist on a separate workstation. Automated exposure control and iter ative reconstruction technique were employed. The dose-length product was 511.44 mGy-cm. COMPARISON: Chest CT dated 07/15/2019 FINDINGS: Mild dependent atelectasis in the bilateral lower lobes. No pneumonia, pulmonary edema or pleural eff usion. Cardiomegaly. Atherosclerotic coronary artery calcifications. Left pectoral 3-lead cardiac pac emaker with lead tips terminating at the right atrial appendage, near the apex of the right ventricle and in the coronary vein overlying the apical lateral wall of the left ventricle having traversed th e coronary sinus. No pericardial effusion. There is a sinus of Valsalva aneurysm which measures up to 5.4 x 5.0 cm. The ascending thoracic aorta is ectatic measuring up to 4.1 cm in maximal diameter bef ore tapering to 3.1 cm maximal diameter immediately following the takeoff of the left subclavian luly ry and with normal caliber of the more distal descending thoracic aorta. No aortic dissection. No pat hologically enlarged thoracic lymphadenopathy. Likely benign 8 mm left thyroid nodule. 2.5 cm hepatic cyst. Cholecystectomy clips the gallbladder fossa. 6 cm left renal cyst. Mild thoracic spondylosis. IMPRESSION: 1. Sinus with Valsalva aneurysm measuring up to 5.4 x 5.0 cm with ectasia of the ascending thoracic a adan measuring up to 4.1 cm. 2. Cardiomegaly. Reviewed, dictated and finalized at location L. IMPRESSION: 1. Sinus with Valsalva aneurysm measuring up to 5.4 x 5.0 cm with ectasia of th e ascending thoracic aorta measuring up to 4.1 cm. 2. Cardiomegaly.
[2023-11-16 09:05] LABS: Estimated Glomerular Filt Rate > 60
== END 2023-11-16 08:29 | disposition home or self-care (01) ==
LOC: ANHIMG 08:32
PROVIDERS: PCP Family Medicine
DX: Q25.43 Congenital aneurysm of aorta (principal); I51.7 Cardiomegaly
CPT/HCPCS: 36415; 71275; Q9967

== ENCOUNTER 2023-12-08 14:13 | Emergency (ER) | payer MEDICARE, SELFPAY ==
[2023-12-08] VITALS (9 sets, daily range): BP systolic 108–134; BP diastolic 69–93; PULSE 62–75; RESP 12–24; TEMP 36.6; O2SAT 94–99
--- NOTE | ~2023-12-08 | XR_ITS ---
EXAMINATION: XR chest 1V portable Exam Date/Time: 12/08/2023 15:15 CDT HISTORY: DIZZINESS WITH BACK PAIN WORSENING PAST FEW DAYS Comparison: None. RESULT: Lines, tubes, and devices: Triple lead pacer, intact leads in good position. Lungs and pleura: Patchy subsegmental and linear bibasilar opacities. Cardiomediastinal silhouette: Stable. Other: No acute osseous or upper abdominal finding. IMPRESSION: Subsegmental left basilar atelectasis/consolidation. Reviewed, dictated and finalized at location K.
[2023-12-08 14:31] LABS: Basophils Percent Auto 0.6 % (0.2-1.2); Eosinophils Absolute Auto 0.1 K/mm3 (0-0.3); Eosinophils Percent Auto 1.6 % (0-4.4); Hemoglobin 15.5 g/dL (14.0-18.0); Immature Granulocyte Absolute 0.06 K/mm3 (0.00-0.031); Immature Granulocyte Percent A 0.9 % (0-0.5); Lymphocytes Absolute Auto 2.22 K/mm3 (0.9-3.2); Mean Corpuscular HGB Conc 34.4 g/dl (32-36); Mean Corpuscular Hemoglobin 32.7 pg (26-34); Mean Corpuscular Volume 94.9 fl (80-100); Monocytes Absolute Auto 0.7 K/mm3 (0.1-0.6); Monocytes Percent Auto 10.7 % (2.6-8.5); Neutrophils Absolute Auto 3.8 K/mm3 (1.3-6.7); Neutrophils Percent Auto 54.2 % (45.5-73.1); Platelet Count Result 210 k/mm3 (150-375); Red Blood Count 4.74 M/mm3 (4.6-6.20); Red Cell Distribution Width 13.6 % (11.5-14.5); White Blood Count 6.9 K/mm3 (4.5-10.0)
[2023-12-08 14:41] LABS: INR 0.9; Prothrombin Time 12.6 Seconds (11.1-14.7)
[2023-12-08 14:42] LABS: Alanine Aminotransferase 39 U/L (6-50); Albumin Level 4.2 g/dL (3.5-5.1); Alkaline Phosphatase 47 U/L (38-126); Anion Gap 5 mmol/L (4-12); Aspartate Amino Transferase 28 U/L (17-59); Bilirubin,Total 0.9 mg/dL (0.2-1.3); Blood Urea Nitrogen 16 mg/dL (9-20); Calcium 8.9 mg/dL (8.4-10.2); Carbon Dioxide 24 mmol/L (22-30); Chloride 99 mmol/L (98-107); Estimated CRCL calculation 93 ml/min; Estimated Glomerular Filt Rate > 60; Glucose 111 mg/dL (65-110); Lipase 295 U/L (23-300); Partial Thromboplastin Time 26.2 Seconds (22.3-36.8); Potassium 4.4 mmol/L (3.4-5.0); Sodium 128 mmol/L (137-145)
[2023-12-08 14:55] LABS: Troponin I < 0.012 ng/mL (0.000-0.034)
--- NOTE | 2023-12-08 17:16 | ECG_ITS ---
Measurements Intervals [place] Rate: 66 P: 77 OH: 155 QRS: 225 QRSD: 146 T: 57 QT: 439 QTc: 462 Interpretive Statements ELECTRONIC VENTRICULAR PACEMAKER COMPARED TO ECG 09/10/2021 21:38:20 NO SIGNIFICANT CHANGES Electronically Signed On 12-09-2023 13:19:18 CDT by Kennedy Hong M.D.
--- NOTE | 2023-12-08 17:25 | ECG_ITS ---
SEE SCANNED COPY FOR CONFIRMED REPORT MTDD
[2023-12-08 17:42] LABS: Influenza A QL RT-PCR Negative (Negative); Influenza B QL RT-PCR Negative (Negative); RSV RNA, RT-PCR Negative (Negative); SARS-CoV-2 RNA PCR Negative (Negative)
--- NOTE | 2023-12-08 17:47 | ED.GENADULT ---
HPI - General Adult General Chief complaint: Dizziness Stated complaint: dizzy spells, chest pain, blurrd vision Time Seen by Provider: 12/08/23 16:28 History of Present Illness HPI narrative: This is an 83-year-old male presenting with chief complaint of dizzy spells. Patient's last 3-4 days he has been having episodes of cold sweats, dizziness, weakness and nausea and body aches. He has occurred 3 or 4 times a day and last about 30 minutes each. He denies fevers productive cough, chest pain, difficulty breathing, abdominal pain, headache, vomiting or diarrhea. No falls or head trauma. Patient is currently asymptomatic. Patient notes he is under a large amount of stress as he has medial his cardiothoracic surgeon next week to discuss a 5.4 cm aortic aneurysm. Patient also states he is chronically hyponatremia. Patient's main concerns are his sodium level that he is not having a heart attack. Related Data Home Medications Medication Instructions Recorded Confirmed apixaban 5 mg tablet (Eliquis) 5 mg PO BID 07/09/19 11/13/23 coenzyme Q10 200 mg capsule (Co 200 mg PO DAILY 07/09/19 11/13/23 Q-10) magnesium 200 mg tablet 200 mg PO DAILY 07/09/19 11/13/23 sacubitril 24 mg-valsartan 26 mg 1 tablet PO BID 07/09/19 11/13/23 tablet (Entresto) sotalol 120 mg tablet 120 mg PO Q12H 03/03/20 11/13/23 furosemide 20 mg tablet 20 mg PO QAM 03/19/20 11/13/23 calcium carbonate 600 mg calcium 600 mg PO DAILY 07/29/20 11/13/23 (1,500 mg) tablet (Calcium) minoxidil 5 %-finasteride 0.1 % 5 ml topical DIRECTED 10/12/22 11/13/23 topical solution polyethylene glycol 3350 17 17 g PO DAILY 10/12/22 11/13/23 gram/dose oral powder atorvastatin 40 mg tablet 40 mg PO DAILY 01/11/23 11/13/23 finasteride 5 mg tablet 5 mg PO DAILY 01/11/23 11/13/23 prochlorperazine maleate 10 mg 10 mg PO DAILY 01/11/23 11/13/23 tablet amlodipine 5 mg tablet 5 mg PO DAILY 09/05/23 11/13/23 Allergies Allergy/AdvReac Type Severity Reaction Status Date / Time celecoxib Allergy Intermediate Gastrointestinal Verified 11/13/23 11:06 Upset ciprofloxacin Allergy Intermediate Muscle pain Verified 11/13/23 11:06 latex Allergy Intermediate Rash Verified 11/13/23 11:06 NSAIDS (Non-Steroidal Allergy Intermediate Gastrointestinal Verified 11/13/23 11:06 Anti-Inflamma Upset PMFSH Past Medical History Medical History Anemia Arrhythmia Cholecystostomy care Chronic insomnia Coronary artery disease Degenerative arthritis of knee, bilateral Depression Epigastric pain GERD (gastroesophageal reflux disease) Heart disease Hernia History of gastroesophageal reflux (GERD) History of stomach ulcers Hypertension Hypertensive heart disease with heart failure CORNEL (obstructive sleep apnea) Paroxysmal A-fib Vascular disease Surgical History Surgical History History of cholecystectomy History of hernia repair History of permanent cardiac pacemaker placement Family History Family History Mother Hypertension Patient's mother is in good health Sibling Hypertension Father Family history of heart disease in male family member before age 55 Other Cerebrovascular accident Diabetes mellitus Family history of arthritis Family history of cardiovascular disease Family history of kidney disease Social History Social History Social History: Smoking packs per day: 1 Smoking cigarettes per day: 20.0 Years smoked: 11 Smoking pack-years: 11.00 Smoking status: Former smoker Tobacco type: cigarettes Second hand tobacco smoke exposure: No Smoking end date: 09/04/71 Alcohol intake: former Drinks per week: 7 Alcohol use details: WINE Substance use: former Substance use type: marijuana Other substance usage
[2023-12-08 17:50] LABS: Troponin I < 0.012 ng/mL (0.000-0.034)
== END 2023-12-08 20:08 | disposition home or self-care (01) ==
PROVIDERS: Emergency Medicine; Emergency Provider Emergency Medicine; PCP Family Medicine
DX: R53.1 Weakness (principal); Z79.01 Long term (current) use of anticoagulants; I25.10 Atherosclerotic heart disease of native coronary artery without angina pectoris; K21.9 Gastro-esophageal reflux disease without esophagitis; G47.33 Obstructive sleep apnea (adult) (pediatric); I48.0 Paroxysmal atrial fibrillation; I11.0 Hypertensive heart disease with heart failure; I50.9 Heart failure, unspecified; Z87.891 Personal history of nicotine dependence; Z20.822 Contact with and (suspected) exposure to COVID-19
CPT/HCPCS: 36415; 71045; 80053; 83690; 84484; 85025; 85610; 85730; 87637; 93005; 99284

== ENCOUNTER 2024-04-15 11:16 | Emergency (ER) | payer MEDICARE, SELFPAY ==
--- NOTE | 2024-04-15 11:25 | ED.WOUNDLAC ---
HPI - Wound/Laceration General Chief Complaint: Extremity Problem,Nontraumatic Stated Complaint: Infected Wound Left Hand Time Seen by Provider: 04/15/24 11:18 Source: patient Mode of arrival: ambulatory Limitations: no limitations History of Present Illness HPI narrative: Cole is an 84-year-old male patient presenting to the clinic today with complaints of a possible infected wound to his left hand. He reports he developed a skin tear over the area few days ago. Area around the wound is now red, swollen, and tender. He denies any drainage. Has been keeping cover with Band-Aids. Related Data Home Medications Medication Instructions Recorded Confirmed apixaban 5 mg tablet (Eliquis) 5 mg PO BID 07/09/19 04/15/24 coenzyme Q10 200 mg capsule (Co 200 mg PO DAILY 07/09/19 04/15/24 Q-10) magnesium 200 mg tablet 200 mg PO DAILY 07/09/19 04/15/24 sacubitril 24 mg-valsartan 26 mg 1 tablet PO BID 07/09/19 04/15/24 tablet (Entresto) sotalol 120 mg tablet 120 mg PO Q12H 03/03/20 04/15/24 furosemide 20 mg tablet 20 mg PO QAM 03/19/20 04/15/24 calcium carbonate (Calcium 600) 600 mg PO DAILY 07/29/20 04/15/24 polyethylene glycol 3350 17 17 g PO DAILY 10/12/22 04/15/24 gram/dose oral powder atorvastatin 40 mg tablet 40 mg PO DAILY 01/11/23 04/15/24 finasteride 5 mg tablet 5 mg PO DAILY 01/11/23 04/15/24 prochlorperazine maleate 10 mg 10 mg PO DAILY 01/11/23 04/15/24 tablet dapagliflozin propanediol 5 mg 5 mg PO DAILY 01/03/24 04/15/24 tablet (Farxiga) spironolactone 25 mg tablet 25 mg PO DAILY 01/03/24 04/15/24 Allergies Allergy/AdvReac Type Severity Reaction Status Date / Time celecoxib Allergy Intermediate Gastrointestinal Verified 04/15/24 11:26 Upset ciprofloxacin Allergy Intermediate Muscle pain Verified 04/15/24 11:26 latex Allergy Intermediate Rash Verified 04/15/24 11:26 NSAIDS (Non-Steroidal Allergy Intermediate Gastrointestinal Verified 08/12/24 11:26 Anti-Inflamma Upset Review of Systems Review of Systems: Pertinent positives per HPI. Patient denies any fever, chills, rash, headache, visual changes, dizziness, cough, runny nose, sore throat, shortness of breath, chest pain, palpitations, nausea, vomiting, diarrhea, constipation, abdominal pain, or any urinary issues. [facility] Past Medical History Medical History Anemia Arrhythmia Cholecystostomy care Chronic insomnia Coronary artery disease Degenerative arthritis of knee, bilateral Depression Epigastric pain GERD (gastroesophageal reflux disease) Heart disease Hernia History of gastroesophageal reflux (GERD) History of stomach ulcers Hypertension Hypertensive heart disease with heart failure CORNEL (obstructive sleep apnea) Paroxysmal A-fib Vascular disease Surgical History Surgical History History of cholecystectomy History of hernia repair History of permanent cardiac pacemaker placement Family History Family History Mother Hypertension Patient's mother is in good health Sibling Hypertension Father Family history of heart disease in male family member before age 55 Other Cerebrovascular accident Diabetes mellitus Family history of arthritis Family history of cardiovascular disease Family history of kidney disease Social History Social History Social History: Smoking packs per day: 1 Smoking cigarettes per day: 20.0 Years smoked: 11 Smoking pack-years: 11.00 Smoking status: Former smoker Tobacco type: cigarettes Second hand tobacco smoke exposure: No Smoking end date: 09/04/71 Alcohol intake: former Drinks per week: 7 Alcohol use details: WINE Substance use: former Substance use type: marijuana Other substance usage details: GUMMIES OCC. FOR KNEE
[2024-04-15 11:30] VITALS: BP 114/73; PULSE 68; RESP 16; TEMP 36.1; O2SAT 99
[2024-04-15 11:37] VITALS: BP 114/73; PULSE 68; RESP 16; TEMP 36.1; O2SAT 99
== END 2024-04-15 11:43 | disposition home or self-care (01) ==
PROVIDERS: Emergency Provider Nurse Practitioner Family; PCP Family Medicine
DX: S61.412A Laceration without foreign body of left hand, initial encounter (principal); L08.9 Local infection of the skin and subcutaneous tissue, unspecified; X58.XXXA Exposure to other specified factors, initial encounter; Z87.891 Personal history of nicotine dependence; I25.10 Atherosclerotic heart disease of native coronary artery without angina pectoris; K21.9 Gastro-esophageal reflux disease without esophagitis; I11.0 Hypertensive heart disease with heart failure; I50.9 Heart failure, unspecified; I48.0 Paroxysmal atrial fibrillation; Z95.0 Presence of cardiac pacemaker; M17.0 Bilateral primary osteoarthritis of knee; Z79.01 Long term (current) use of anticoagulants
CPT/HCPCS: 99213; G0463

== ENCOUNTER 2024-09-30 14:18 | Outpatient (CLI) | payer MEDICARE, SELFPAY ==
--- NOTE | ~2024-09-30 | CT_ITS ---
CLINICAL INDICATION: Right upper quadrant abdominal pain COMPARISON: 03/19/2020. Reference is also made to a CTA of the chest dated 11/16/2023.. TECHNIQUE: Multiple contiguous axial images of the abdomen and pelvis were performed following the ad ministration of with 100 mL Omnipaque-350 intravenous contrast The dose-length product (DLP) was 517.03 mGy-cm. Automated exposure control and iterative reconstruction technique were employed. FINDINGS/OBSERVATIONS: Visualized lower thorax: The bilateral lung bases are clear. The heart is of normal size, without pericardial effusion. Liver: Redemonstration of a well-circumscribed focus of fluid attenuation within segment 8 of the liver, sta tistically a cyst. This focus has increased in size since previous examination performed 03/19/2020 wh en it measured 18 mm in short axis dimension. Currently, this focus measures 23 mm, an interval hernandez e. No additional enhancement or attenuation abnormalities within the liver, which is not enlarged measur ing 18 cm in longitudinal dimension. Gallbladder and biliary system: Surgically absent. Pancreas: The pancreas enhances homogeneously without ductal dilatation. Spleen: The spleen enhances homogeneously and is not enlarged measuring 8 cm in longitudinal dimension. Kidneys: Redemonstration of multiple foci of decreased attenuation within the bilateral kidneys, stable in siz e and attenuation from prior. The remainder of the bilateral kidneys otherwise enhance symmetrically without hydronephrosis or mirna l calculi. Adrenal glands: Unremarkable. Gastrointestinal tract: Fecal stasis within the colon. Appendix: The appendix is not definitively visualized. However, no pericecal inflammatory change is identified suggest the presence of acute appendicitis. Vasculature: Unremarkable. No significant atherosclerotic disease. Lymph nodes: No pathologically enlarged or morphologically suspicious lymph nodes within the retroperitoneum or at the root of the mesentery. Pelvic structures: The bladder is minimally distended, and otherwise unremarkable. The prostate gland is minimally enlarged with multiple bulky calcifications. Body wall and musculoskeletal: No significant degenerative disease within the lower thoracic or lumbosacral spine. IMPRESSION: Interval enlargement of the (likely) cyst within segment 8 of the liver. Multiple stable cysts within the bilateral kidneys. Otherwise, unremarkable CT examination of the abdomen and pelvis, as detailed above. Reviewed, dictated and finalized at location [facility] IMPRESSION: Interval enlargement of the (likely) cyst within segment 8 of the liver. Multiple stable cysts within the bilateral kidneys. Otherwise, unremarkable CT examination of the abdomen and pelvis, as detailed yuli bowles.
[2024-09-30 14:49] LABS: Estimated Glomerular Filt Rate > 60
--- OUTSIDE RECORDS SUMMARY | 2024-09-30 15:14 | XMS_ITS | Clinical Summary ---
Author Organization [facility] Address [address] [place] [address] Care Team Providers Care House Admin Name Role Phone Cheo Potts MD Primary Care Provider Marty Torres MD Unavailable Qi Norris MD Unavailable [phone] Katharina Mac WATER ANALYST Unavailable [phone] Tree Ruiz MD PhD Unavailable [phone] Oanh Trevizo WATER ANALYST Unavailable [phone] Oanh Trevizo WATER ANALYST Unavailable [phone] Allergies Active Allergy Reactions Criticality Noted Date Comments Celecoxib Other (See comments) Low Altered depth perception Ciprofloxacin Muscle pain Medium 12/06/2017 Muscle weakness Latex Rash Medium 04/11/2017 Medications calcium carbonate-vitam in D3 1,500 mg (600mg elemental) -800 unit per tabletIndicatio ns:Hypocalcemia Prevention,Prev ention of Vitamin D Deficiency 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 mouth displayer merchandise 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 Active coenzyme Q10 200 mg capsuleIndicati ons:supplement Take 1 capsule (200 mg total) by mouth nightly Active magnesium oxide 200 mg tablet,chewable Indications:sup plement Take 200 mg by mouth displayer merchandise 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 Active polyethylene glycol (MIRALAX) 17 gram packetIndicatio ns:constipation Take 1 packet (17 g total) by mouth nightly Active multivitamin no.44-vit D3-K 1,000-800 unit-mcg capsuleIndicati ons:Mineral Deficiency Prevention,Glenys min Deficiency Prevention 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 mouth displayer merchandise 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 Active busPIRone (BUSPAR) 15 mg tabletIndicatio ns:Generalized Anxiety Disorder Take 5 mg by mouth 2 (two) times a day 05/20/20 20 Active azelastine (ASTELIN) 137 mcg (0.1 %) nasal sprayIndication s:Seasonal Allergic Rhinitis Administer 2 sprays into each nostril nightly 09/17/19 21 Active fluocinolone in oil (DermOtic) 0.01 % dropsIndication s:ear inflammation Administer 5 drops into each ear daily as needed (ear inflammation) 03/10/20 21 Active prochlorperazin e (COMPAZINE) 10 mg tabletIndicatio ns:Nausea and Vomiting Take 1 tablet (10 mg total) by mouth every 6 (six) hours as needed for nausea or vomiting for nausea 05/05/20 22 Active finasteride (PROSCAR) 5 mg tabletIndicatio ns:benign prostatic hyperplasia with lower urinary tract sx Take 1 tablet (5 mg total) by mouth displayer merchandise 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 06/16/20 22 Active sucralfate (CARAFATE) 1 gram tabletIndicatio ns:Maintenance of Healing Gastric Ulcer Take 1 tablet (1 g total) by mouth 3 (three) times a day 02/10/20 23 Active apixaban (ELIQUIS) 5 mg tablet Take 1 tablet (5 mg total) by mouth 2 (two) times a day 180 tablet 1 05/22/20 23 Active cholecalciferol 400 unit capsuleIndicati ons:supplement Take 200 Units by mouth every other day Active loratadine 10 mg capsuleIndicati ons:Allergic Rhinitis Take 10 mg by mouth every evening Active acetaminophen (TYLENOL ARTHRITIS PAIN ORAL) Take 2 tablets by mouth nightly Active ketoconazole (NIZORAL) 2 % cream 10/05/19 24 Active mupirocin (BACTROBAN) 2 % ointment daily as needed 10/03/19 24 Active triamcinolone (KENALOG) 0.1 % cream 10/05/19 24 Active spironolactone (ALDACTONE) 25 mg tablet Take 1 tablet (25 mg total) by mouth daily 30 tablet 11 10/17/19 24 2024 Active Additional Information Patient taking differently:25 mg oral Daily,Taking half of pill right now .5 daily, Reported on 09/24/2024 Anucort-HC 25 mg suppository as needed 03/11/20 24 Active atorvastatin (LIPITOR) 20 mg tablet Take 1 tablet (20 mg total) by mouth nightly 90 tablet 3 08/19/20 24 2024 Active sacubitriL-vals kvng (ENTRESTO) 24-26 mg tabletIndicatio ns:chronic heart failure 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 mouth 2 (two) times a day 28 tablet 08/23/20 24 Active dapagliflozin propanediol (FARXIGA) 10 mg tablet Take 1 tablet (10 mg total) by mouth daily 90 tablet 3 09/11/19 25 2025 Active turmeric root extract 500 mg capsule Take by mouth Active omeprazole (PriLOSEC) 40 mg capsule Take 1 capsule (40 mg total) by mouth daily 09/17/19 25 Active traMADoL (ULTRAM) 50 mg tabletIndicatio ns:Lumbar radiculopathy,D DD (degenerative disc disease), lumbar,Lumbar stenosis with neurogenic claudication Take 1 tablet (50 mg total) by mouth 3 (three) times a day as needed for pain 90 tablet 09/25/19 25 Active gabapentin (NEURONTIN) 100 mg capsuleIndicati ons:Restless Legs Syndrome Take 1 capsule (100 mg total) by mouth 3 (three) times a day 90 capsule 11 09/25/19 25 2025 Active sotaloL (BETAPACE) 120 mg tablet TAKE 1 TABLET(120 MG) BY MOUTH TWICE DAILY 180 tablet 09/29/[address] (PROTONIX) 40 mg EC tabletIndicatio ns:Stress Ulcer Prophylaxis Take 1 tablet (40 mg total) by mouth 2 (two) times a day 01/08/20 22 2024 Discontinued(A lternate therapy) dapagliflozin propanediol (FARXIGA) 10 mg tablet Take 1 tablet (10 mg total) by mouth daily for 14 days 14 tablet 10/10/19 24 2024 Discontinued(R eorder) sotaloL (BETAPACE) 120 mg tablet Take 1 tablet (120 mg total) by mouth 2 (two) times a day 180 tablet 1 04/03/20 24 2024 Discontinued chlorhexidine (PERIDEX) 0.12 % solution 04/29/20 24 2024 Discontinued(T herapy completed) predniSONE (DELTASONE) 5 mg tablet 05/01/20 24 2024 Discontinued(T herapy completed) traMADoL (ULTRAM) 50 mg tabletIndicatio ns:Lumbar radiculopathy,D DD (degenerative disc disease), lumbar,Lumbar stenosis with neurogenic claudication Take 1 tablet (50 mg total) by mouth 3 (three) times a day as needed for pain 90 tablet 08/26/20 24 2024 Discontinued(R eorder) gabapentin (NEURONTIN) 100 mg capsuleIndicati ons:Spinal stenosis of lumbar region without neurogenic claudication Take 1 capsule (100 mg total) by mouth 3 (three) times a day 90 capsule 11 09/25/19 25 2024 Discontinued Active Problems Problem Noted Date Diagnosed Date Neck pain, chronic 02/07/2024 Presence of Watchman left atrial appendage closu re device 09/20/2023 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 06/13/2023 GI bleeding 02/08/2023 Lumbar facet arthropathy 09/20/2022 detention current use of anticoagulant Lumbar radiculopathy 09/13/2022 Chronic midline low back pain without sciatica 0 09/13/2022 DDD (degenerative disc disease), lumbar 09/13/19 23 Sacroiliitis 09/13/2022 Iliac artery aneurysm (CMS/HCC) 06/20/2022 Chronic idiopathic constipation 07/16/2021 Hepatomegaly 07/16/2021 History of alcohol abuse 07/16/2021 PAD (peripheral artery disease) 02/26/2019 Nocturnal hypoxemia 02/26/2019 Coronary artery disease invo lving cloverdale coronary artery of cloverdale heart without angina pectoris 01/30/2019 Overview (01/30/2019): Added automatically from request for surgery [id number] Abnormal EKG 01/30/2019 Overview (01/30/2019): Added automatically from request for surgery [id number] Sick sinus syndrome (CMS/HCC) 04/20/2018 Overview (04/20/2018): Added automatically from request for surgery [id number] Assessment & Plan (04/27/2018 8:59 AM CDT): Cardiac resynchronization defibrillator implanted on 04/24 with start of sotalol 120mg BID on same evening. -Post procedure x-ray without pneumothorax -Patient continues to feel palpitations and strong heart beats, still in bigeminy on tele -Increased sotalol to 160 mg BID and dc metoprolol with improvement of strong heart beat symptoms -Will continue to monitor on tele and get daily EKGs PVC's (premature ventricular contractions) 03/24 Assessment & Plan (03/25/2018 10:41 AM CDT): - hx of PVCs - per pt, recent Holtor monitor showed ~9% PVCs. No records found - tele monitoring overnight without any significant PVC burden - ct sotalol 40mg BID Chronic systolic heart failure (CMS/HCC) 018 Assessment & Plan (03/25/2018 10:41 AM CDT): Hx of HFrEF (EF 50% on 02/18) - TTE 02/18: mod global LV systolic dysfunction, with prominent septal bounce, and septal akinesis, EF ~50%, diastolic function w/ impaired relaxation, trace AR, MR, mild TR, PASP 25 + RAP - at home on sotalol & ramipril 7.5 - ct sotalol, lisinopril 20 BPPV (benign paroxysmal positional vertigo) 03/05 Assessment & Plan (03/24/2018 11:29 PM CDT): - encourage Felicita and Martini-Daroff maneuvers - ctm Hyperlipidemia 03/24/2018 Assessment & Plan (03/24/2018 11:29 PM CDT): - ct home rosuvastatin 20 GERD (gastroesophageal reflux disease) 8 Assessment & Plan (03/24/2018 11:31 PM CDT): - home on omeprazole 40 am, ranitidine pm - started pantoprazole 40 HTN (hypertension) 03/24/2018 Assessment & Plan (04/25/2018 1:34 PM CDT): Continue amlodipine 5mg and lisinopril 5mg daily Assessment & Plan (03/25/2018 2:34 PM CDT): - recently d/c amlodipine 10d ago due to SBP in 100s - hypertensive w/ SBP in 150-160s yesterday but pt did not receive any BP meds while in ED - ct ACEi - holding amlo Impacted cerumen 03/24/2017 Dizziness and giddiness 03/16/2017 Vestibular vertigo 03/16/2017 Hearing loss 03/14/2017 Chronic pain of both knees 02/03/2017 CAD (coronary artery disease) 01/10/2017 Assessment & Plan (04/25/2018 1:34 PM CDT): Continue asa 81mg and rosuvastatin 20mg Assessment & Plan (03/24/2018 11:33 PM CDT): - mild 3v dz on [facility] 03/2015 - ct ASA, statin Dizziness 01/10/2017 Assessment & Plan (03/25/2018 10:41 AM CDT): Of unclear etiology. DDx includes anxiety vs BPPV vs symptomatic PVCs vs symptomatic bradycardia vs orthostatics - dizziness improved this morning - Pt now considering if dizziness is 2/2 anxiety and his PRN use of ativan - per pt, recent Holtor monitor showed ~9% PVCs. No records found - tele monitoring overnight notable for bradycardia and HR in 50s and w/out significant PVC burden - orthostatics neg in ED - ct sotalol 40mg BID High risk medication use 11/04/2016 Shortness of breath at rest 06/20/2016 Chest pain 03/18/2016 Palpitations 03/02/2015 Left ventricular dysfunction 03/02/2015 Obstructive sleep apnea syndrome 03/02/2015 Cardiomyopathy 03/02/2015 Vitreous degeneration 10/16/2012 Myopia 09/10/2012 Stenosis of carotid artery 07/03/2012 Ascending aortic aneurysm 07/03/2012 Atrial fibrillation (CMS/HCC) 01/23/2008 Referred otalgia 03/15/2007 Inguinal hernia 04/19/2005 Left bundle branch block (LBBB) 07/09/2003 Encounters Date Type Department Care Team Description 09/24/2024 9:[address] OPENINGS INSPECTOR Office Visit [facility] Surgery [address] [facility] 8th Floor [address] [place] [phone] Babar Green MD Pain in both lower extremities (Primary Dx) 09/23/2024 Telephone [facility] Cardiology [address] [place] [address] 8th Floor [address] [place] [phone] Marty Torres MD Urgent Page/ Cardiac clearance (Upper Endoscopy) 09/18/2024 3:[address] OPENINGS INSPECTOR - 09/18/2024 11:[address] OPENINGS INSPECTOR Hospital Encounter [facility] [id number] [place] [address] Oanh Trevizo NP Spinal stenosis of lumbar region without neurogenic claudication (Primary Dx); Chronic midline low back pain without sciatica; Lumbar radiculopathy; Sacroiliitis (HCC); Primary hypertension; DDD (degenerative disc disease), lumbar; Lumbar stenosis with neurogenic claudication Discharge Disposition: Discharge to home or self care 09/17/2024 2:[address] OPENINGS INSPECTOR Office Visit [facility] Cardiothoracic Surgery [address] [place] [address] 8th Floor [address] Room [address] [phone] Guanaco Ochoa MD Paroxysmal atrial fibrillation (CMS/HCC) (HCC) 09/11/2024 3:[address] OPENINGS INSPECTOR Ancillary Procedure [facility] Cardiology [address] [facility] [address] [place] [address] Coronary artery disease involving cloverdale coronary artery of cloverdale heart with other form of angina pectoris (HCC); Palpitations; Left bundle branch block (LBBB) 09/11/2024 1:[address] OPENINGS INSPECTOR Ancillary Procedure [facility] Cardiology [address] [facility] [address] [place] [address] Carotid bruit, unspecified laterality 09/11/2024 Orders Only [facility] Scheduling [address] [place] [address] Marty Torres MD 08/20/2024 10:[address] OPENINGS INSPECTOR - 08/20/2024 11:[address] OPENINGS INSPECTOR Hospital Encounter [facility] [address] [place] [address] Torin Almodovar MD Spinal stenosis of lumbar region without neurogenic claudication; Lumbar radiculopathy; Sacroiliitis (HCC) Discharge Disposition: Discharge to home or self care 08/19/2024 11:[address] OPENINGS INSPECTOR Office Visit [facility] Cardiology [address] [facility] [address] [place] [address] Marty Torres MD Carotid bruit, unspecified laterality (Primary Dx); Coronary artery disease involving cloverdale coronary artery of cloverdale heart with other form of angina pectoris (HCC); Palpitations; Left bundle branch block (LBBB); Paroxysmal atrial fibrillation (CMS/HCC) (HCC) 08/19/2024 Orders Only [facility] Cardiology [address] [place] [address] [address] [place] [address] Tree Ruiz MD PhD 08/19/2024 Orders Only [facility] Berenice Olivares RN 08/14/2024 Telephone [facility] Cardiology [facility] 8th [place] [address] [place] [phone] Marty Torres MD Med Refill (Entresto); Entresto Samples 08/06/2024 1:[address] OPENINGS INSPECTOR Ancillary Procedure [facility] [address] [facility] 8th [place] [address] [place] [phone] PAD (peripheral artery disease) (HCC) 08/05/2024 Telephone [facility] Surgery [address] [facility] Floor 1 [place] [phone] Babar Green MD 07/31/2024 Orders Only [facility] Vascular Surgery [address] [place] [address] [address] [place] [phone] Babar Green MD PAD (peripheral artery disease) (HCC) (Primary Dx) 07/18/2024 10:[address] OPENINGS INSPECTOR - 07/18/2024 11:[address] OPENINGS INSPECTOR Hospital Encounter [facility] [address] [place] [address] Oanh Trevizo NP Spinal stenosis of lumbar region without neurogenic claudication (Primary Dx); Lumbar radiculopathy; Sacroiliitis (HCC); Primary hypertension Discharge Disposition: Discharge to home or self care 07/09/2024 11:[address] OPENINGS INSPECTOR Office Visit [facility] Orthopaedic Surgery [address] [facility] 12th [place] [address] [place] [address] Bell Smith PA Primary osteoarthritis of both knees from Last 3 Months Immunizations Name Administration Dates Next Due DT 05/05/1998 DTaP, Unspecified 02/26/2009 Influenza, Quadrivalent, Hig h Dose, Preservative Free, Intrr 05/31/2021,05/31/2021,06/12/2020,06/12 Influenza, Trivalent, High D ose, Split, Preservative Free, Intramuscular 06/12/2020,06/15/2019,06/15/2019,06/14,06/13/2018,06/13/2018,06/25/2017 ,06/25/2017,06/26/2016,06/26/2016,06/04,06/21/2015,06/04/2014, 4,06/01/2013,06/01/2013,07/06/2012,10/2011,05/23/2008,07/05/2007,08/19/20 05,08/25/2004 Influenza, Trivalent, IM (MDV) 05/14/2015,2014 Influenza, Unspecified 06/07/2023,06/12/2020 Moderna SARS-CoV-2 Monovalen t Vaccination (12+ YRS) 10/14/2020 Pneumococcal Conjugate PCV 13 01/23/2015, 015 Surgical History Surgery Date Site/Laterality Comments HERNIA REPAIR CHOLECYSTECTOMY 09/04/2010 - 09/03/2011 CARDIAC CATHETERIZATION INSERT / REPLACE / REMOVE PACEMAKER FLUORO GUIDED ASPIRATION TMJ LEFT 07/18/2023 Left BACK SURGERY Medical History Medical History Date Comments Cardiomyopathy (HCC) Coronary artery disease Hypertension PVC's (premature ventricular contractions) Atrial fibrillation (CMS/HCC) ([facility]) s/p ablation in 2006 BPPV (benign paroxysmal positional vertigo) PUD (peptic ulcer disease) GERD (gastroesophageal reflux disease) Spinal stenosis OA (osteoarthritis) Hyperlipidemia HFrEF (heart failure with re duced ejection fraction) (CMS/HCC) (HCC) EF 42% Carotid artery disease (HCC) CHF (congestive heart failure) (CMS/HCC) ([facility]) Sleep apnea Heart disease Heart failure (HCC) Awareness under anesthesia telma ramos ablation Family History Medical History Relation Name Comments Heart disease Brother 1 Family history of cardiac disorder - (Added by TW Conv) Heart disease Brother 2 Family history of cardiac disorder - (Added by TW Conv) Heart attack Father Family history of myocardial infarction - (Added by TW Conv)/Family history of myocardial infarction - (Added by TW Conv) Stroke Father Family history of stroke - (Added by TW Conv)/Family history of stroke - (Added by TW Conv) Stroke Mother Family history of stroke - (Added by TW Conv)/Family history of stroke - (Added by TW Conv) Hypotension Other 1 Family history of hypotension - (Added by TW Conv) Hypotension Other 2 Family history of hypotension - (Added by TW Conv) Heart attack Sister 1 Family history of myocardial infarction - (Added by TW Conv) Heart failure Sister 2 Family history of heart failure - (Added by TW Conv) Heart attack Sister 3 Family history of myocardial infarction - (Added by TW Conv) Heart failure Sister 4 Family history of heart failure - (Added by TW Conv) Anesthesia problems Neg Hx Malig Hypertension Neg Hx Malig Hyperthermia Neg Hx Pseudochol deficiency Neg Hx Relation Name Status Comments Brother 1 Brother 2 Father Mother Other 1 Other 2 Sister 1 Sister 2 Sister 3 Sister 4 Social History Tobacco Use Types Packs/Day Years Used Date Smoking Tobacco: Former Cigarettes Q uit: 1972 Passive Smoke Exposure: Past Smokeless Tobacco: Never Tobacco Cessation:Counseling Given: Not Answered Alcohol Use Standard Drinks/Week Comments Yes 7 (1 standard drink = 0.6 oz pur e alcohol) [facility] Utilities Answer Date Recorded In the past 12 months has [employer], gas, oil, or water [employer] threatened to shut off services in your home? No 09/22/2023 Social Connection and Isolat ion Panel [NHANES] Answer Date Recorded In a typical week, how many times do you talk on the phone with family, friends, or neighbors? More than three times a week 09/22/2023 How often do you get togethe r with friends or relatives? More than three times a week 09/22/2023 How often do you attend chur ch or jewish services? Never 09/22/2023 Do you belong to any clubs o r organizations such as samaritan groups, unions, fraternal or athletic groups, or school groups? No 09/22/2023 How often do you attend meet ings of the clubs or organizations you belong to? Never 09/22/2023 Are you , , di vorced, , never , or living with a partner? 09/22/2023 AUDIT-C Answer Date Recorded Q1: How often do you have a drink containing alc ohol? Monthly or less 10/16/2023 Q2: How many drinks containi ng alcohol do you have on a typical day when you are drinking? 1 or 2 10/16/2023 Q3: How often do you have si x or more drinks on one occasion? Never 10/16/2023 Overall Financial Resource Strain (CARDIA) Answe r Date Recorded How hard is it for you to pa y for the very basics like food, housing, medical care, and heating? Not hard at all 09/22/2023 PHQ-2 Answer Date Recorded PHQ-2 Total Score (If total score is 3 or more points, staff should administer the PHQ-9) 2 09/13/2022 Hunger Vital Sign Answer Date Recorded Within the past 12 months, y ou worried that your food would run out before you got the money to buy more. Never true 09/22/19 24 Within the past 12 months, t he food you bought just didn't last and you didn't have money to get more. Never true 09/22/2023 PRAPARE - Transportation Answer Date Re corded In the past 12 months, has l ack of transportation kept you from medical appointments or from getting medications? No 09/04 In the past 12 months, has l ack of transportation kept you from meetings, work, or from getting things needed for daily living? No 09/22/2023 Housing Stability Vital Sign Answer Jevon e Recorded In the last 12 months, was t here a time when you were not able to pay the mortgage or rent on time? No 09/22/2023 In the last 12 months, how many places have you lived? 1 09/22/2023 In the last 12 months, was t here a time when you did not have a steady place to sleep or slept in a intermediate (including now)? No 09/22/2023 Personal Safety Answer Date Recorded Have you ever been in or are you currently in a harmful physical or emotional relationship or is someone making you feel afraid or unsafe? Denies 09/20/2023 Sex and Gender Information Value Date Recorded Sex Assigned at Not on file Legal Sex Male 3:[address] OPENINGS INSPECTOR Gender Identity Male 11/05/2020 12:[address] OPENINGS INSPECTOR Sexual Orientation Not on file Obstetrics History Last Filed Vital Signs Vital Sign Reading Time Taken Comments Blood Pressure 143/83 09/24/2024 9:[address] OPENINGS INSPECTOR Pulse 86 09/24/2024 9:[address] OPENINGS INSPECTOR Temperature 36.2 ??C (97.1 ??F) 08/20/2024 11:[address] Respiratory Rate 18 09/18/2024 3:[address] OPENINGS INSPECTOR Oxygen Saturation 97% 09/24/2024 9:[address] OPENINGS INSPECTOR Inhaled Oxygen Concentration - - Weight 79.4 kg (175 lb) 09/24/2024 9:[address] OPENINGS INSPECTOR Height 175.3 cm (5' 9 ) 09/24/2024 9:[address] OPENINGS INSPECTOR Body Mass Index 25.84 09/24/2024 9:[address] OPENINGS INSPECTOR Plan of Treatment Health Maintenance Due Date Last Done Comments Hepatitis B Screening 1958 Zoster Vaccine (1 of 2) 1992 Well Visit 65+ 2007 Pneumococcal vaccine 65+ (2 of 2 - PPSV23 or PCV20) 03/20/2015 01/23/2015, 01/23/2015 DTaP/Tdap/Td Vaccine (3 - Tdap) 02/26/2019 9, 05/05/1998 Depression Screening 09/13/2023 09/13/2022, 09/13/19 23 Covid-19 Vaccine (3 - 2023-2 5 season) 2024 07/04/2021, 10/14/2020 Influenza Vaccine (#1) 2024 3, 05/31/2021, 05/31/2021, Additional history exists Fall Risk Assessment 09/18/2025 09/18/2024 Abdominal Aortic Aneurysm (A AA) Screen Completed 05/18/2021, 02/18/2019 Medical Devices Implanted Type Area Risk Assessment Consultant Device Identifier Shelf Expiration Date Model / Serial / Lot Medtronic Cardiac Rhythm Mgmt 5076-52 Capsurefix Novus 6.2fr 2mm 52cm Bipolar Screw In Implantable Latex Free - [id number] - [id number] Implanted:Qty: 1 on 04/24/2018 by Osmany Pina MD at [facility] Pacemaker Left: Heart Medtronic Cardiac Rhythm Mgmt [id number] 03/08/2020 5076-52 / [id number] / Medtronic Cardiac Rhythm Mgmt 5076-45 Capsurefix Novus Od6.2 Fr; Odsec2 Mm L45 Cm Bipolar; Screw In; Im - [id number] - [id number] Implanted:Qty: 1 on 04/24/2018 by Osmany Pina MD at [facility] Pacemaker Left: Heart Medtronic Cardiac Rhythm Mgmt [id number] 02/13/2020 5076-45 / [id number] / Medtronic Inc [id number] Attain Performa Starfix 5.3fr 5.1fr 88cm Quadripolar Is4-Llll Latex Free - [id number] - [id number] Implanted:Qty: 1 on 04/24/2018 by Osmany Pina MD at [facility] Pacemaker Left: Heart Medtronic Inc 02/15/2020 [id number] / [id number] / Pacemaker Cardiac 11mm 19.9cu Cm 46.5x59mm Rain Surescan - [id number] - [id number] Implanted:Qty: 1 on 04/24/2018 by Osmany Pina MD at [facility] Pacemaker Left: Chest Medtronic Inc 06/17/2019 [id number] / [id number] / [employer] [facility] Device Clsr Perclose Prostyle Sut-Mediatd Closure-Repair Sys 82093-64 - [id number] - [id number] Implanted:Qty: 1 on 09/20/2023 by Antoine Nelson MD at [facility] Vascular Closure Device N/A: Femoral Vein [employer] 05/04/2025 78966-99 / [id number] / [id number] Procedures Procedure Name Priority Date/Time Associated Diagnosis Comments TRANSTHORACIC ECHO (TTE) COMPLETE W DOPPLER/CF W CONTRAST Routine 09/11/2024 3:[address] OPENINGS INSPECTOR Coronary artery disease involving cloverdale coronary artery of cloverdale heart with other form of angina pectoris (HCC) Palpitations Left bundle branch block (LBBB) US CAROTIDS DUPLEX BILATERAL Schedule Routine, Read Routine (OP Routine) 09/11/2024 2:[address] OPENINGS INSPECTOR Carotid bruit, unspecified laterality PAIN MGMT IMAGING SI JOINT LEFT Schedule Routine, Read Routine (OP Routine) 08/20/2024 12:[address] OPENINGS INSPECTOR Spinal stenosis of lumbar region without neurogenic claudication Lumbar radiculopathy Sacroiliitis (HCC) DEVICE CHECK - REMOTE Routine 08/19/2024 7:[address] OPENINGS INSPECTOR SCAN - LABS 08/19/2024 US ARTERIAL DOPPLER LOWER EXTREMITY BILATERAL Schedule Routine, Read Routine (OP Routine) 08/06/2024 2:[address] OPENINGS INSPECTOR PAD (peripheral artery disease) (HCC) CO ARTHROCENTESIS ASPIR&/INJ MAJOR JT/BURSA W/O US Routine 07/09/2024 11:[address] OPENINGS INSPECTOR Primary osteoarthritis of both knees CTA ABDOMINAL AORTA AND BILATERAL ILIOFEMORAL RUNOFF Schedule Routine, Read Routine (OP Routine) 02/18/2019 3:29 PM CDT Abnormal ankle brachial index (ODALIS) Pain in both lower extremities from Last 3 Months or Most Recently Relevant to Health Maintenance Results * TRANSTHORACIC ECHO (TTE) COMPLETE W DOPPLER/CF W CONTRAST (09/11/2024 3:[address] OPENINGS INSPECTOR) LV EF 45 % CARDIOREPORT Anatomical Region Laterality Modality Ultrasound 09/11/2024 3:[address] OPENINGS INSPECTOR Narrative 09/11/2024 8:[address] OPENINGS INSPECTOR Patient name: Donald Fatima Date of test: 09/11/2024 Type of test: TTE w/Doppler Hospital #: [id number] Date of : 1940 (M) Platform Operations Director: Daisha Musa RDCS Referring Physician: MARTY TORRES MD Contrast Agent: 1.1 ml Optison Administered, (1.9 ml wasted). Contrast Administered by: Daisha Musa RDCS Supervised/Interpreted by: Marty Torres MD Diagnosis: Location: [facility] Reason for test: CAD MV Structure: Normal, ?MV Motion: Normal, ?? Mitral Annulus: Normal AV Structure: tricuspid and is Normal, ?? AV Motion: Normal Aotic root: dilated, ?TM: Normal, ?? PV: Normal Valvular Vegetations: none seen, ?Mass/Thrombi: none seen RA: Normal Measurements: ?M-Mode ?Normal ? Aotic Root: ? <3.8 ? LA: ? <4.0 ? RV: ? <2.8 ? LV(ED): ? <5.7 ? LV(ES): ? Variable ?2D Linear Normal ? Aotic Root: 4.3 cm ?<4.0 ? Ao Indexed: 2.2 cm/M2 <2.0 ? LA: ? <4.0 ? RV: ? 3.1 cm ?<4.2 ? LV(ED): ? 5.8 cm ?<5.9 ? LV(ES): ? 4.4 cm ?<4.0 ?2D Vol. ?? Normal ?Indexed ?? Indexed Normal RA: ? 36.0 ml ? 18.3 ml/M2 ?11-39 ? LA: ? 52.0 ml ? 26.5 ml/M2 ?16-34 ? RV: ? <12.7 ? LV(ED): ? 142.0 ml ??62-150 ?72.2 ml/M2 ?<75 ? LV(ES): ? 78.0 ml ?? 21-61 ? 39.7 ml/M2 ?<32 ?3D Vol. ? Indexed Normal LV(ED): ?<75 ? LV(ES): ?<32 ? LV EF: 45 % ?? (Normal: >=52%) ?? LV Septum: 0.9 cm ?(Normal: <1.0 cm) Wall Motion Scoring (1=Normal 2=Hypo 3=Akinetic 4=Dyskin./Aneurysm 0=Not visualized) Parasternal Long [place]:MAS=1 BAS=1 MIL=1 HAO=1 Parasternal Short [place]:MAS=1 MIS=1 TN=1 MIL=1 MAL=1 MA=1 Apical 4 Chambers:=1 MIS=1 BIS=1 BAL=1 MAL=1 AL=1 AC=1 Apical 2 Chambers:AI=1 TN=1 BI=1 BA=1 MA=1 AA=1 AC=1 LV Global Longitudinal Strain: -16% ??(Normal <-17%) RV Global Longitudinal Strain: LV Function: Normal LV Ejection Fraction, (EF=52-72%) Anterior and anterolateral louise are mildly hypokinetic with LVEF 45%. RV Function: Normal Septal Motion: Normal Pericardial Effusion: none seen Atrial Septum: Normal DOPPLER/COLOR FLOW DOPPLER RESULTS: Diastolic Function: Normal Tricuspid Valve: normal TV Pulmonic Valve: normal PV AV Regurgitation: Mild AR AV Stenosis: no AV Area: ??cm2 AV Pressure Gradient (mmHg): Mean: 0, Peak:0 MV Regurgitation: Trace ??MR seen MV Stenosis: no MS MV Area: ??cm2 MV Pressure Gradient (mmHg): Mean: 0 MV ERO: ??cm Regurg. Vol.: ??ml/beat Regurg. Frac.: ??% PA Pressure: ??mmHg DOPPLER/COLOR FOLOW DOPPLER COMMENTS: Mild AR, Trace ??MR seen, no , no MS, normal TV, normal PV. Diastolic function: Normal CONTRAST: 1.1 ml Optison Administered, (1.9 ml wasted). SUMMARY: Aortic sinus callie 4.3 cm, proximal ascending aorta callie 3.9 cm ??LA is normal. Normal RV cavity size. LV cavity size is normal. Normal LV wall thickness/mass. ??Anterior and anterolateral wall mildly hypokinetic with LVEF 45%. Normal Inferior vena cava. ??Aortic valve is trileaflet. Mild AR, Trace ??MR seen, no , no MS, normal TV, normal PV. iastolic function: Normal.Reduced global LV myocardial longitudinal function and strain pattern. Compared to 12/20/2023 LVEF reduced from 60% to 45%. and segmental wall motion abnormality noted. Confirmed on ??09/11/2024 - 20:00:40 by Marty Torres MD By signing this report, the attending traffic administrator certifies that he or she has personally supervised and interpreted the echocardiogram and has reviewed and or edited and agrees with the written comments contained within the report. Procedure Note Marty Torres MD - 09/11/2024 Patient name: Donald Fatima Date of test: 09/11/2024 Type of test: [facility] #: [id number] Date of : 1940 (M) Platform Operations Director: Daisha Musa RDCS Referring Physician: MARTY TORRES MD Contrast Agent: 1.1 ml Optison Administered, (1.9 ml wasted). Contrast Administered by: Daisha Musa RDCS Supervised/Interpreted by: Marty Torres MD Diagnosis: Location: [facility] Reason for test: CAD MV Structure: Normal, MV Motion: Normal, Mitral Annulus: Normal AV Structure: tricuspid and is Normal, AV Motion: Normal Aotic root: dilated, TM: Normal, PV: Normal Valvular Vegetations: none seen, Mass/Thrombi: none seen RA: Normal Measurements: M-Mode Normal Aotic Root: <3.8 LA: <4.0 RV: <2.8 LV(ED): <5.7 LV(ES): Variable 2D Linear Normal Aotic Root: 4.3 cm <4.0 Ao Indexed: 2.2 cm/M2 <2.0 LA: <4.0 RV: 3.1 cm <4.2 LV(ED): 5.8 cm <5.9 LV(ES): 4.4 cm <4.0 2D Vol. Normal Indexed Indexed Normal RA: 36.0 ml 18.3 ml/M2 11-39 LA: 52.0 ml 26.5 ml/M2 16-34 RV: <12.7 LV(ED): 142.0 ml 62-150 72.2 ml/M2 <75 LV(ES): 78.0 ml 21-61 39.7 ml/M2 <32 3D Vol. Indexed Normal LV(ED): <75 LV(ES): <32 LV EF: 45 % (Normal: >=52%) LV Septum: 0.9 cm (Normal: <1.0 cm) Wall Motion Scoring (1=Normal 2=Hypo 3=Akinetic 4=Dyskin./Aneurysm 0=Not visualized) Parasternal Long [place]:MAS=1 BAS=1 MIL=1 HAO=1 Parasternal Short [place]:MAS=1 MIS=1 TN=1 MIL=1 MAL=1 MA=1 Apical 4 Chambers:=1 MIS=1 BIS=1 BAL=1 MAL=1 AL=1 AC=1 Apical 2 Chambers:AI=1 TN=1 BI=1 BA=1 MA=1 AA=1 AC=1 LV Global Longitudinal Strain: -16% (Normal <-17%) RV Global Longitudinal Strain: LV Function: Normal LV Ejection Fraction, (EF=52-72%) Anterior and anterolateral louise are mildly hypokinetic with LVEF 45%. RV Function: Normal Septal Motion: Normal Pericardial Effusion: none seen Atrial Septum: Normal DOPPLER/COLOR FLOW DOPPLER RESULTS: Diastolic Function: Normal Tricuspid Valve: normal TV Pulmonic Valve: normal PV AV Regurgitation: Mild AR AV Stenosis: no AV Area: cm2 AV Pressure Gradient (mmHg): Mean: 0, Peak:0 MV Regurgitation: Trace MR seen MV Stenosis: no MS MV Area: cm2 MV Pressure Gradient (mmHg): Mean: 0 MV ERO: cm Regurg. Vol.: ml/beat Regurg. Frac.: % PA Pressure: mmHg DOPPLER/COLOR FOLOW DOPPLER COMMENTS: Mild AR, Trace MR seen, no , no MS, normal TV, normal PV. Diastolic function: Normal CONTRAST: 1.1 ml Optison Administered, (1.9 ml wasted). SUMMARY: Aortic sinus callie 4.3 cm, proximal ascending aorta callie 3.9 cm LA is normal. Normal RV cavity size. LV cavity size is normal. Normal LV wall thickness/mass. Anterior and anterolateral wall mildly hypokinetic with LVEF 45%. Normal Inferior vena cava. Aortic valve is trileaflet. Mild AR, Trace MR seen, no , no MS, normal TV, normal PV. iastolic function: Normal.Reduced global LV myocardial longitudinal function and strain pattern. Compared to 12/20/2023 LVEF reduced from 60% to 45%. and segmental wall motion abnormality noted. Confirmed on 09/11/2024 - 20:00:40 by Marty Torres MD By signing this report, the attending traffic administrator certifies that he or she has personally supervised and interpreted the echocardiogram and has reviewed and or edited and agrees with the written comments contained within the report. us Marty Torres MD CV ECHO PROCEDURES Final Resul t * US Carotids Duplex Bilateral (09/11/2024 2:[address] OPENINGS INSPECTOR) Anatomical Region Laterality Modality Vascular Bilateral Ultrasound 09/11/2024 1:[address] OPENINGS INSPECTOR Narrative 09/11/2024 8:[address] OPENINGS INSPECTOR Patient name: Donald Fatima Date of test: 09/11/2024 Hospital #: 0 ?Location: [facility] Physician(s): , MARTY TORRES MD Interpreted by: Marty Torres MD Tech: Mary Kelley [facility] Type of Test: Carotid Doppler Evaluation Procedure: Duplex ultrasonographic examination of bilateral carotid/vertebral vascular system. Indications: Carotid Bruit / Atrial fibrillation, CAD, Heart failure / Dyslipidemia VELOCITY: RIGHT: Distal ICA: 59 / 19 Mid ICA: 50 / 15 Prox ICA: 67/10 ECA: 80 Dist CCA: 68/16 Prox CCA: 77/17 ICA/CCA: 0.99 Vertebral: antegrade Vertebral: 40 LEFT: Dist ICA: 67/23 Mid ICA: 50/18 Prox ICA: 34/10 ECA: 88 Distal CCA: 62/13 Prox CCA: 84/14 ICA/CCA: 0.55 Vertebral: antegrade Vertebral: 34 STENOSIS: RIGHT: ECA: CCA Prox: CCA Dist: ICA Prox: < 50% ICA Mid: ICA dist: Bulb: < 50% LEFT: ECA: CCA Prox: CCA Dist: ICA Prox: < 50% ICA Mid: ICA dist: Bulb: < 50% Right Findings: * Irregular heterogeneous plaque in the proximal internal carotid artery (<50% stenosis). * Mild atherosclerosis in the carotid artery bulb (<50% stenosis). * No evidence of significant atherosclerosis in the external carotid artery. * No evidence of significant atherosclerosis in the common carotid artery. * Normal antegrade flow in the vertebral artery. Left Findings: * Irregular heterogeneous plaque in the proximal internal carotid artery (<50% stenosis). * Mild atherosclerosis in the carotid artery bulb (<50% stenosis). * No evidence of significant atherosclerosis in the external carotid artery. * No evidence of significant atherosclerosis in the common carotid artery. * Normal antegrade flow in the vertebral artery. Summary: 1. Mild atherosclerosis in the right and left internal carotid arteries (<50% stenosis). 2. Mild atherosclerosis in the right and left carotid artery bulbs (<50% stenosis). 3. Mild atherosclerosis in the right external carotid artery (<50% stenosis). 4. No evidence of significant atherosclerosis in the left external carotid artery. 5. No evidence of significant atherosclerosis in the right and left common carotid arteries. 6. Normal antegrade flow in the right and left vertebral arteries. Confirmed on ??09/11/2024 - 8:34 PM by Marty Torres MD I have personally reviewed and interpreted this study. Procedure Note Marty Torres MD - 09/11/2024 Patient name: Donald Fatima Date of test: 09/11/2024 Hospital #: 0 Location: [facility] Physician(s): , MARTY TORRES MD Interpreted by: Marty Torres MD Tech: Mary Kelley [facility] Type of Test: Carotid Doppler Evaluation Procedure: Duplex ultrasonographic examination of bilateral carotid/vertebral vascular system. Indications: Carotid Bruit / Atrial fibrillation, CAD, Heart failure / Dyslipidemia VELOCITY: RIGHT: Distal ICA: 59 / 19 Mid ICA: 50 / 15 Prox ICA: 67/10 ECA: 80 Dist CCA: 68/16 Prox CCA: 77/17 ICA/CCA: 0.99 Vertebral: antegrade Vertebral: 40 LEFT: Dist ICA: 67/23 Mid ICA: 50/18 Prox ICA: 34/10 ECA: 88 Distal CCA: 62/13 Prox CCA: 84/14 ICA/CCA: 0.55 Vertebral: antegrade Vertebral: 34 STENOSIS: RIGHT: ECA: CCA Prox: CCA Dist: ICA Prox: < 50% ICA Mid: ICA dist: Bulb: < 50% LEFT: ECA: CCA Prox: CCA Dist: ICA Prox: < 50% ICA Mid: ICA dist: Bulb: < 50% Right Findings: * Irregular heterogeneous plaque in the proximal internal carotid artery (<50% stenosis). * Mild atherosclerosis in the carotid artery bulb (<50% stenosis). * No evidence of significant atherosclerosis in the external carotid artery. * No evidence of significant atherosclerosis in the common carotid artery. * Normal antegrade flow in the vertebral artery. Left Findings: * Irregular heterogeneous plaque in the proximal internal carotid artery (<50% stenosis). * Mild atherosclerosis in the carotid artery bulb (<50% stenosis). * No evidence of significant atherosclerosis in the external carotid artery. * No evidence of significant atherosclerosis in the common carotid artery. * Normal antegrade flow in the vertebral artery. Summary: 1. Mild atherosclerosis in the right and left internal carotid arteries (<50% stenosis). 2. Mild atherosclerosis in the right and left carotid artery bulbs (<50% stenosis). 3. Mild atherosclerosis in the right external carotid artery (<50% stenosis). 4. No evidence of significant atherosclerosis in the left external carotid artery. 5. No evidence of significant atherosclerosis in the right and left common carotid arteries. 6. Normal antegrade flow in the right and left vertebral arteries. Confirmed on 09/11/2024 - 8:34 PM by Marty Torres MD I have personally reviewed and interpreted this study. us Marty Torres MD IMG US PROCEDURES Final Result * Imaging SI Joint Injection Left ([id number]) (08/20/2024 12:[address] OPENINGS INSPECTOR) Narrative RAD_P[facility] - 08/20/2024 12:[address] OPENINGS INSPECTOR The images from this study are not interpreted by Radiology. ??Please refer to the physician's procedure / OR operative note. us Oanh Trevizo NP IMG PAIN MGMT PROCEDURE S Final Result RAD_PACS_[facility] * DEVICE CHECK - REMOTE (08/19/2024 7:[address] OPENINGS INSPECTOR) Anatomical Region Laterality Modality Other 08/19/2024 7:[address] OPENINGS INSPECTOR Narrative 09/03/2024 6:[address] OPENINGS INSPECTOR Interpretation Summary: Battery and Leads (BL) Normal parameters noted on battery and lead(s) --- 12 months remaining longevity (implanted 2017). ?Lead impedance, sensing, and RA/RV threshold trends stable and appropriate. ?? No short V-V intervals. Capture threshold chronically elevated --- LV threshold 3.25/0.4. ?? Trend shows chronically elevated LV threshold measurements. ?? LV output is programmed Adaptive, currently 5.5/0.4. Presenting Rhythm (CO) Atrial Pacing-BiVentricular Pacing (AP-BiVP) --- AP/BVP 62 bpm. Arrhythmic events (AE) Nonsustained VT event(s) identified --- Since 05/20/24: ?? One NSVT episode, 2 sec. Anticoagulation ??(AC) Patient on anticoagulant therapy Patient prescribed Apixaban (Eliquis) Transmission Information (TI) Device Summary Report Follow Up (FU) Patient's primary treating physician will be apprised of findings Procedure Note Tree Ruiz MD PhD - 09/03/2024 Interpretation Summary: Battery and Leads (BL) Normal parameters noted on battery and lead(s) --- 12 months remaininglongevity (implanted 2017). Lead impedance, sensing, and RA/RVthreshold trends stable and appropriate. No short V-V intervals. Capture threshold chronically elevated --- LV threshold 3.25/0.4. Trendshows chronically elevated LV threshold measurements. LV output isprogrammed Adaptive, currently 5.5/0.4. Presenting Rhythm (CO) Atrial Pacing-BiVentricular Pacing (AP-BiVP) --- AP/BVP 62 bpm. Arrhythmic events (AE) Nonsustained VT event(s) identified --- Since 05/20/24: One NSVT episode,2 sec. Anticoagulation (AC) Patient on anticoagulant therapy Patient prescribed Apixaban (Eliquis) Transmission Information (TI) Device Summary Report Follow Up (FU) Patient's primary treating physician will be apprised of findings Tree Ruiz MD PhD CV CARDIAC SERVICES PROCEDURES Final Result * SCAN - LABS (08/19/2024) Berenice Olivares RN Final Result * US Arterial Doppler Lower Extremity Bilateral (08/06/2024 2:[address] OPENINGS INSPECTOR) Anatomical Region Laterality Modality Vascular Bilateral Ultrasound 08/06/2024 1:[address] OPENINGS INSPECTOR Narrative 08/06/2024 9:[address] OPENINGS INSPECTOR [facility] - Department of Vascular Surgery, Vascular Laboratory [address] [place] [address] Lower Extremity Arterial Doppler Report Patient Name: DONALD FATIMA : 1940 Study Date: 08/06/2024 1:31:00 PM Gender: M Tech: Oanh Chicas RVT Location: [facility] Provider: BABAR GREEN Quality: Adequate Order Provider: BABAR GREEN PROCEDURES: Arterial Report: Bilateral lower extremity arterial Doppler exam at rest. INDICATIONS: Dx: PAD (peripheral artery disease) (HCC) [I73.9 (ICD-10-CM)] I73.9 Peripheral vascular disease, unspecified. Measurements: Right - ? Left - Measurement ?Value ?Units ?Measurement ?Value ? Units Rt Brachial Pressure ? 126 ?mmHg ? Lt Brachial Pressure ? 125 ? mmHg Rt GEOTHERMAL HEAT PUMP MACHINIST Pressure ?>254 ? mmHg ? Lt GEOTHERMAL HEAT PUMP MACHINIST Pressure ?>254 ?mmHg Rt DPA Pressure ?>254 ? mmHg ? Lt DPA Pressure ?254 ? mmHg Rt 1st Digit Pressure ?94 ? mmHg ? Lt 1st Digit Pressure ?97 ?mmHg Rt PT ODALIS Resting ?NC ?Lt PT ODALIS Resting ?NC Rt AT ODALIS Resting ?NC ?Lt AT ODALIS Resting ?NC Rt Digit/Arm Index ? 0.75 ?Lt Digit/Arm Index ? 0.77 Measurement ?Value ?Units ?Measurement ?Value ? Units Right - ? Left - - FINDINGS: Performing Platform Operations Director: Oanh Chicas RVT. Bilateral All Levels : The bilateral common femoral, popliteal, posterior tibial and anterior tibial artery waveforms are multiphasic. Right Digits: Normal right digit pressure and waveform. Left Digits: Normal left digit pressure and waveform. CONCLUSIONS: 1. The ankle arteries are non-compressible bilaterally which is consistent with arterial calcification thus the Ankle/Brachial Indices are not obtainable. 2. Bilateral Digit/Arm Indices are within normal limits (for reference, normal HUDSON is >0.6). HISTORY: Spinal stenosis, HTN, CHF - PREVIOUS STUDIES: Previous study on 05/11/23, RT 1.38, LT Non compressible. DISCLAIMER: The study images and the final report will be retained in the patient chart by the Vascular Laboratory for the legally required time period. This chart constitutes the legal record of any testing performed. ATTESTATION: I have reviewed and interpreted the pertinent images and measurements of this study. I attest to the conclusions in the final report that is provided above. Electronically Signed By: Alverto Leavitt MD FACS 08/06/2024 9:20:[address] OPENINGS INSPECTOR Procedure Note Alverto Leavitt MD - 08/06/2024 [facility] - Department of Vascular Surgery,Vascular Laboratory [address] [place] [address] Lower Extremity Arterial Doppler Report Patient Name: DONALD FATIMA : 1940 Study Date: 08/06/2024 1:31:00 PM Gender: M Tech: Oanh Chicas RVT Location: [facility] Provider: BABAR GREEN Quality: Adequate Order Provider: BABAR GREEN PROCEDURES: Arterial Report: Bilateral lower extremity arterial Doppler exam at rest. INDICATIONS: Dx: PAD (peripheral artery disease) (HCC) [I73.9 (ICD-10-CM)] I73.9 Peripheral vascular disease, unspecified. Measurements: Right - Left- Measurement Value Units Measurement ValueUnits Rt Brachial Pressure 126 mmHg Lt Brachial Pressure 125mmHg Rt GEOTHERMAL HEAT PUMP MACHINIST Pressure >254 mmHg Lt GEOTHERMAL HEAT PUMP MACHINIST Pressure >254mmHg Rt DPA Pressure >254 mmHg Lt DPA Pressure 254mmHg Rt 1st Digit Pressure 94 mmHg Lt 1st Digit Pressure 97mmHg Rt PT ODALIS Resting NC Lt PT ODALIS Resting NC Rt AT ODALIS Resting NC Lt AT ODALIS Resting NC Rt Digit/Arm Index 0.75 Lt Digit/Arm Index 0.77 Measurement Value Units Measurement ValueUnits Right - Left- - FINDINGS: Performing Platform Operations Director: Oanh Chicas RVT. Bilateral All Levels : The bilateral common femoral, popliteal, posterior tibial and anteriortibial artery waveforms are multiphasic. Right Digits: Normal right digit pressure and waveform. Left Digits: Normal left digit pressure and waveform. CONCLUSIONS: 1. The ankle arteries are non-compressible bilaterally which is consistentwith arterial calcification thus the Ankle/Brachial Indices are not obtainable. 2. Bilateral Digit/Arm Indices are within normal limits (for reference,normal HUDSON is >0.6). HISTORY: Spinal stenosis, HTN, CHF - PREVIOUS STUDIES: Previous study on 05/11/23, RT 1.38, LT Non compressible. DISCLAIMER: The study images and the final report will be retained in the patientchart by the Vascular Laboratory for the legally required time period. This chartconstitutes the legal record of any testing performed. ATTESTATION: I have reviewed and interpreted the pertinent images and measurements ofthis study. I attest to the conclusions in the final report that is provided above. Electronically Signed By: Alverto Leavitt MD [facility] 08/06/2024 9:20:[address] OPENINGS INSPECTOR Babar Green MD IMG US PROCEDURES Final Result * CO ARTHROCENTESIS ASPIR&/INJ MAJOR JT/BURSA W/O US (07/09/2024 11:[address] OPENINGS INSPECTOR) Narrative Bell Smith PA - 07/09/2024 11:[address] OPENINGS INSPECTOR Bell Smith PA ? 07/09/2024 ??1:33 PM Large Joint Injection: bilateral knee Performed by: Bell Smith PA Authorized by: Bell Smith PA ?? Large Joint Injection/Aspiration: ??Consent Given by: ??Patient ??Site marked: the procedure site was marked ?Verbal consent obtained: Yes ?? Supporting Documentation: ??Indications: ??Pain Procedure Details: ??Location: ??Knee ??Site: ??Bilateral knee ??Prep: patient was prepped and draped in usual sterile fashion ?Prep: patient was prepped using a clean technique ?Needle gauge: 18g needle on right, 21g needle on the left. ??Approach: ??Anterolateral ??Ultrasound guided: No ?Fluroscopic guidance: No ?Medications Right Large Joint Injection: ??48 mg hylan g-f 20 48 mg/6 mL ??Medications Left ??Large Joint Injection: ??48 mg hylan g-f 20 48 mg/6 mL ??Patient tolerance: ??Patient tolerated the procedure well with no immediate complications Bell HUYNH IN CLINIC/BEDSIDE OR DERABLES Final Result * CTA Abdominal Aorta And Bilateral Iliofemoral Runoff (02/18/2019 3:29 PM CDT) Anatomical Region Laterality Modality Body Bilateral Computed Tomogra phy 02/18/2019 4:06 PM CDT Impressions 02/18/2019 4:06 PM CDT 1. Bilateral moderate-severe atherosclerotic disease in the distal lower extremities. Two-vessel runoff bilaterally. 2. No significant atherosclerotic disease or arterial stenosis involving the abdominal aorta, iliac arteries, SFAs, or popliteal arteries. Electronically signed by: Kumar Davenport M.D. Narrative 02/18/2019 4:06 PM CDT EXAMINATION: ??CT ANGIOGRAPHY OF THE ABDOMEN, PELVIS, AND LOWER EXTREMITIES WITH CONTRAST HISTORY: Abnormal ankle-brachial indices, lower extremity pain TECHNIQUE: CT angiography of the abdomen, pelvis, and lower extremities was performed following the uneventful intravenous administration of 100 ml [id number]-[id number]. Vascular 3D images were generated on a dedicated workstation and also reviewed. FINDINGS: No prior studies are available for comparison. VASCULAR FINDINGS: Abdominal Aorta and Branches: Celiac axis: no significant stenosis SMA: no significant stenosis MILIND: no significant stenosis Right renal vessels: no significant stenosis (2 vessels) Left renal vessels: no significant stenosis Infrarenal aorta: no significant stenosis. No aneurysm. Pelvic Vessels: R. Common iliac artery: ??no significant stenosis R. External iliac artery: ??no significant stenosis R. Internal iliac artery: ??no significant stenosis L. Common iliac artery: ??no significant stenosis L. External iliac artery: ??no significant stenosis L. Internal iliac artery: ??no significant stenosis Right Lower Extremity: R. Common femoral artery: ??no significant stenosis R. Profunda femoris artery: ??no significant stenosis R. Superficial femoral artery: ??no significant stenosis R. Popliteal artery: ??no significant stenosis R. Anterior tibial artery: ??Multifocal areas of moderate to severe stenosis. Patency through the foot is maintained. R. Tibioperoneal trunk: ??no significant stenosis R. Posterior tibial artery: ??Multifocal areas of moderate stenosis. Patent to the foot. R. Peroneal artery: ??Multifocal areas of moderate to severe stenosis. Not opacified beyond the mid calf. R. Dorsalis pedis artery: ??no significant stenosis R. Plantar artery: ??no significant stenosis Left Lower Extremity: L. Common femoral artery: ??no significant stenosis L. Profunda femoris artery: ??no significant stenosis L. Superficial femoral artery: ??no significant stenosis L. Popliteal artery: ??no significant stenosis L. Anterior tibial artery: ??Multifocal areas of moderate to severe stenosis. Patent through the foot. L. Tibioperoneal trunk: ??no significant stenosis L. Posterior tibial artery: ??Multifocal areas of moderate to severe stenosis. Patent through the foot. L. Peroneal artery: ??Multifocal areas of moderate to severe stenosis. Not opacified beyond the mid to distal calf. L. Dorsalis pedis artery: ??no significant stenosis L. Plantar artery: ??no significant stenosis NON-VASCULAR FINDINGS: The lung bases are clear. Small liver cyst in segment 2/4A. Liver is otherwise unremarkable. Gallbladder is surgically absent. No biliary ductal dilatation. The pancreas, spleen, and adrenal glands appear normal. Bilateral renal cysts are present. No solid renal mass. No urolithiasis or hydronephrosis. No focal urinary bladder wall mass. The prostate is mildly enlarged. A few colonic diverticula are present. No abnormal bowel distention or adjacent inflammation. Normal appendix. No ascites or free pelvic fluid. No pelvic mass or organized pelvic collection. No enlarged abdominal or pelvic lymph nodes. No acute osseous or soft tissue abnormality. Procedure Note Kumar Davenport MD - 02/18/2019 EXAMINATION: CT ANGIOGRAPHY OF THE ABDOMEN, PELVIS, AND LOWER EXTREMITIES WITH CONTRAST HISTORY: Abnormal ankle-brachial indices, lower extremity pain TECHNIQUE: CT angiography of the abdomen, pelvis, and lower extremities was performed following the uneventful intravenous administration of 100 ml [id number]-[id number]. Vascular 3D images were generated on a dedicated workstation and also reviewed. FINDINGS: No prior studies are available for comparison. VASCULAR FINDINGS: Abdominal Aorta and Branches: Celiac axis: no significant stenosis SMA: no significant stenosis MILIND: no significant stenosis Right renal vessels: no significant stenosis (2 vessels) Left renal vessels: no significant stenosis Infrarenal aorta: no significant stenosis. No aneurysm. Pelvic Vessels: R. Common iliac artery: no significant stenosis R. External iliac artery: no significant stenosis R. Internal iliac artery: no significant stenosis L. Common iliac artery: no significant stenosis L. External iliac artery: no significant stenosis L. Internal iliac artery: no significant stenosis Right Lower Extremity: R. Common femoral artery: no significant stenosis R. Profunda femoris artery: no significant stenosis R. Superficial femoral artery: no significant stenosis R. Popliteal artery: no significant stenosis R. Anterior tibial artery: Multifocal areas of moderate to severe stenosis. Patency through the foot is maintained. R. Tibioperoneal trunk: no significant stenosis R. Posterior tibial artery: Multifocal areas of moderate stenosis. Patent to the foot. R. Peroneal artery: Multifocal areas of moderate to severe stenosis. Not opacified beyond the mid calf. R. Dorsalis pedis artery: no significant stenosis R. Plantar artery: no significant stenosis Left Lower Extremity: L. Common femoral artery: no significant stenosis L. Profunda femoris artery: no significant stenosis L. Superficial femoral artery: no significant stenosis L. Popliteal artery: no significant stenosis L. Anterior tibial artery: Multifocal areas of moderate to severe stenosis. Patent through the foot. L. Tibioperoneal trunk: no significant stenosis L. Posterior tibial artery: Multifocal areas of moderate to severe stenosis. Patent through the foot. L. Peroneal artery: Multifocal areas of moderate to severe stenosis. Not opacified beyond the mid to distal calf. L. Dorsalis pedis artery: no significant stenosis L. Plantar artery: no significant stenosis NON-VASCULAR FINDINGS: The lung bases are clear. Small liver cyst in segment 2/4A. Liver is otherwise unremarkable. Gallbladder is surgically absent. No biliary ductal dilatation. The pancreas, spleen, and adrenal glands appear normal. Bilateral renal cysts are present. No solid renal mass. No urolithiasis or hydronephrosis. No focal urinary bladder wall mass. The prostate is mildly enlarged. A few colonic diverticula are present. No abnormal bowel distention or adjacent inflammation. Normal appendix. No ascites or free pelvic fluid. No pelvic mass or organized pelvic collection. No enlarged abdominal or pelvic lymph nodes. No acute osseous or soft tissue abnormality. IMPRESSION: 1. Bilateral moderate-severe atherosclerotic disease in the distal lower extremities. Two-vessel runoff bilaterally. 2. No significant atherosclerotic disease or arterial stenosis involving the abdominal aorta, iliac arteries, SFAs, or popliteal arteries. Electronically signed by: Kumar Davenport M.D. Marty Torres MD IMG CT PROCEDURES Final Result from Last 3 Months or Most Recently Relevant to Health Maintenance Insurance MEDICARE BLUE CROSS MEDICARE SUPPLEMENT MEDICARE MEDICARE [facility] MEDICARE [facility] MEDICARE [place] [employer] MEDICARE SUPPLEMENT Advance Directives For more information, please contact: [phone] * Full Code (Latest Code Status on File) Date Activated Date Inactivated Comments 09/20/2023 6:27 PM 09/21/2023 7:45 PM * Full Code Date Activated Date Inactivated Comments 04/24/2018 5:50 PM 04/27/2018 2:46 PM * Full Code Date Activated Date Inactivated Comments 03/24/2018 11:24 PM 03/25/2018 4:51 PM Care Teams House Admin Relationship Specialty Start Date End Date Cheo Potts MD [address] [place], [place] [id number] PCP - General 01/03/17 Marty Torres MD [address] [facility] [address] [place] [address] Consulting Physician Cardiology 11/15/18 Qi Norris MD [facility] [address] Referring Physician Gastroenterology 05/10/23 Katharina Mac, [place] [address] Nurse Practitioner Cardiology 11/21/23 Tree Ruiz MD PhD [address] [address] Consulting Physician Cardiology 11/21/23 [place] [address] [address] Nurse Practitioner Body Builder Apprentice 07/18/24 [place] [address] [address] Nurse Practitioner Body Builder Apprentice 09/18/24
--- OUTSIDE RECORDS SUMMARY | 2024-09-30 15:14 | XMS_ITS | Patient Health Summary ---
Author Organization [facility] Address [address] [place] [address] Care Team Providers Care Quality Inspector Name Role Phone Cheo Potts MD Primary Care Provider [phone] Note from [facility],non-owned Affiliates and Associated Physician Practices is amultiple site organization consisting of ambulatory clinics and hospital sitesin [place], [place], [place] and [place]. This disclosure is being madepursuant to the Care Everywhere program and may not contain all information available regarding this patient. Last updated 18.[facility] Allergies * Ciprofloxacin(Other) -Low Criticality * Latex(Itching) Medications * Be aware that medications may not be up to date on this document. Alwaysverify current medications with the patient. * apixaban (Eliquis) 5 MG tablet(Started 05/22/2023) Take 1 (one) tablet by mouth 2 times daily * atorvastatin (Lipitor) 20 MG tablet(Started 08/19/2024) Take 1 (one) tablet by mouth at bedtime * azelastine (Astelin) 0.1 % nasal spray(Started 09/03/2024) Bryant 2 (two) sprays into each nostril once daily * busPIRone (Buspar) 15 MG tablet(Started 11/17/2023) Take 0.5 (one-half) tablet by mouth 2 times daily * Coenzyme Q10 10 MG Take 200 mg by mouth once daily * dapagliflozin propanediol (Farxiga) 10 MG tablet(Started 09/19/2023) Take 1 (one) tablet by mouth once daily * finasteride (Proscar) 5 MG tablet Take 1 (one) tablet by mouth once daily * Anucort-HC 25 MG suppository(Started 03/11/2024) Insert 1 (one) suppository into the rectum 2 times daily as needed * polyethylene glycol 3350 (Miralax) 17 g packet Take 17 (seventeen) g by mouth at bedtime * sacubitril-valsartan (Entresto) 24-26 MG tablet(Started 08/23/2024) Take 1 (one) tablet by mouth 2 times daily * sotalol (Betapace) 120 MG tablet(Started 04/03/2024) Take 1 (one) tablet by mouth 2 times daily * spironolactone (Aldactone) 25 MG tablet(Started 10/17/2023) Take 1 (one) tablet by mouth once daily * traMADol (Ultram) 50 MG tablet(Started 08/26/2024) Take 1 (one) tablet by mouth 3 times daily as needed * omeprazole (PriLOSEC) 40 MG capsule(Started 09/17/2024) Take 1 (one) capsule by mouth 2 times daily, 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 and supper 2 refills by 09/17/2025 Ended Medications* pantoprazole EC (Protonix) 40 MG tablet(Discontinued) Take 1 (one) tablet by mouth 2 times daily * omeprazole (PriLOSEC) 40 MG capsule(Started 09/17/2024)(Discontinued) Take 1 (one) capsule by mouth 2 times daily, 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 and supper 2 refills by 09/17/2025 Active Problems Problem Noted Date Diagnosed Date Vitreous degeneration 10/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 Myopia 09/10/2012 Social History Tobacco Use Types Packs/Day Years Used Date Smoking Tobacco: Former Cigarettes Q uit: 09/04/1971 Tobacco Cessation:Counseling Given: Not Answered Alcohol Use Standard Drinks/Week Comments No 0 (1 standard drink = 0.6 oz pur e alcohol) Sex and Gender Information Value Date Recorded Sex Assigned at Not on file Gender Identity Not on file Sexual Orientation Not on file Last Filed Vital Signs Vital Sign Reading Time Taken Comments Blood Pressure 128/81 09/27/2024 3:15 PM TELECOM SALES CONSULTANT Pulse 61 09/27/2024 3:15 PM TELECOM SALES CONSULTANT Temperature 36.3 ??C (97.3 ??F) 09/27/2024 2:56 PM CS T Respiratory Rate 11 09/27/2024 3:15 PM TELECOM SALES CONSULTANT Oxygen Saturation 93% 09/27/2024 3:15 PM TELECOM SALES CONSULTANT Inhaled Oxygen Concentration - - Weight 80.7 kg (178 lb) 09/27/2024 1:14 PM TELECOM SALES CONSULTANT Height 172.7 cm (5' 8 ) 09/27/2024 1:14 PM TELECOM SALES CONSULTANT Body Mass Index 27.06 09/27/2024 1:14 PM TELECOM SALES CONSULTANT Procedures * PATHOLOGY TISSUE(Performed 09/27/2024) Performed for Acute gastric ulcer, unspecified whether gastric ulcer hemorrhage or perforation present * RI ED EGD FLEX TRANSORAL DX(Performed 09/27/2024) Performed for Acute gastric ulcer, unspecified whether gastric ulcer hemorrhage or perforation present * EGD(Performed 09/27/2024) Results * PATHOLOGY TISSUE (09/27/2024 2:44 PM TELECOM SALES CONSULTANT) Case Report Surgical Pathology Report ? Case: [id number] ? Authorizing Provider: ??Terrance Moise MD ?Collected: ? 09/27/2024 02:44 PM ? Ordering Location: ? [facility] ?Received: ?09/27/2024 03:02 PM ? Pathologist: ? Rhona Cedeño MD ? Specimen: ?Gastric, Gastric Biopsy r/o H-Pylori ? 09/30/2024 1:52 PM TELECOM SALES CONSULTANT [facility] Final Diagnosis Stomach, biopsy (A): - No histopathologic abnormality - No active inflammation or H. pylori organisms (H&E examination) 09/30/2024 1:52 PM [facility] Microscopic Description and Comment Microscopic examination substantiates the final diagnosis. 09/30/2024 1:52 PM [facility] Clinical History The patient is 84-year-old man who presents for follow-up of gastric ulcer. Operative procedure/findings: EGD - multiple fundic gland gastric polyps; gastritis, biopsied to rule out H. pylori 09/30/2024 1:52 PM [facility] Gross Description The requisition and specimen(s) are identified with the patient's name Cole Fatima . Received in formalin, specimen A, gastric biopsy rule out H. pylori , consists of multiple laguna-pink irregular tissue fragments ranging from 0.1 to 0.2 cm in greatest dimension and aggregating to 0.4 x 0.3 x 0.1 cm which are submitted in toto in a single cassette labeled A1. RB 09/30/2024 1:52 PM [facility] Pathologist Location at [facility] 09/30/2024 1:52 PM [facility] Disclaimer The performance characteristics of all immunohistochemical and indirect immunofluorescence stains (if any) cited in this report were determined by the Histopathology Laboratory of [facility]. Some of these tests were developed by our own laboratory and have not been cleared or approved by the US Food and Drug Administration. The FDA does not require this test to go through premarket FDA review. These tests are used for clinical purposes. They should not be regarded as investigational or for research. This laboratory is certified under the Clinical Laboratory Improvement Amendments (CLIA) as qualified to perform high complexity clinical laboratory testing. This case has been personally reviewed and interpreted by the attending (teaching) pathologist. 09/30/2024 1:52 PM [facility] Embedded Images 09/30/2024 1:52 PM [facility] Biopsy, NOS GASTRIC CONTENTS SPECIMEN / Unknown 09/27/2024 2:44 PM TELECOM SALES CONSULTANT 09/27/2024 3:02 PM TELECOM SALES CONSULTANT Comment:Pre-op diagnosis: Acute gastric ulcer, unspecified whether gastric ulcer hemorrhage or perforation present [K25.3] Terrance Moise MD LAB - PATHOLOGY/CYTO LOGY ORDERABLES [facility] [address] [place] [address], [facility] [phone] * EGD (09/27/2024 2:08 PM TELECOM SALES CONSULTANT) Report Endoscopy POC Endoscopy Department Report _ Patient Name: Cole Fatima ?Procedure Date: 09/27/2024 2:08 PM ?Date of : 1940 Classification: Outpatient ?Gender: Male Ethnicity: Not or ? Race: White _ Providers: ?Terrance Moise MD, Steven Dean (Fellow) Referring : ? Cheo Potts (Referring ) Procedure: ?Upper GI endoscopy Indications: ?Follow-up of chronic gastric ulcer Medications: ?Monitored Anesthesia Care Patient Profile: ?This is an 84 year old male. Description of Procedure: Pre-Anesthesia Assessment: ?- Prior to the procedure, a History and Physical ?was performed, and patient medications and ?allergies were reviewed. The patient's tolerance of ?previous anesthesia was also reviewed. The risks ?and benefits of the procedure and the sedation ?options and risks were discussed with the patient. ?All questions were answered, and informed consent ?was obtained. Prior Anticoagulants: The patient has ?taken no anticoagulant or antiplatelet agents. ASA ?Grade Assessment: II - A patient with mild systemic ?disease. After reviewing the risks and benefits, ?the patient was deemed in satisfactory condition to ?undergo the procedure. ?After obtaining informed consent, the endoscope was ?passed under direct vision. Throughout the ?procedure, the patient's blood pressure, pulse, and ?oxygen saturations were monitored continuously. The ?Endoscope was introduced through the mouth, and ?advanced to the second part of duodenum. The upper ?GI endoscopy was accomplished without difficulty. ?The patient tolerated the procedure well. ? Findings: ? The examined esophagus was normal. ? Multiple fundic gland polyps with no bleeding were found in the entire ? examined stomach. ? Localized mild inflammation characterized by erythema was found in the ? gastric body. Biopsies were taken with a cold forceps for Helicobacter ? pylori testing. ? The cardia and gastric fundus were normal on retroflexion. ? The examined duodenum was normal. ? Estimated Blood Loss: ? Estimated blood loss: none. Complications: ?No immediate complications. Impression: ? - Normal esophagus. ?- Multiple fundic gland gastric polyps. ?- Gastritis. Biopsied. ?- Normal examined duodenum. Recommendation: ? - Discharge patient to home. ?- Resume previous diet. ?- Continue present medications. ?- Await pathology results. ? Attending Participation: ??I was present and participated during the entire ?procedure, including non-ivory portions. ? Procedure Code(s): ? --- Professional --- ? 66693, Esophagogastroduo denoscopy, flexible, transoral; with biopsy, ? single or multiple Diagnosis Code(s): ?--- Professional --- ?K31.7, Polyp of stomach and duodenum ?K29.70, Gastritis, unspecified, without bleeding ?K25.7, Chronic gastric ulcer without hemorrhage or ?perforation CPT copyright 2021 [employer]. All rights reserved. The codes documented in this report are preliminary and upon creative services writer review may be revised to meet current compliance requirements. Terrance Moise MD 09/27/2024 3:05:15 PM Note Initiated On: 09/27/2024 2:08 PM Number of Addenda: 0 ? [facility] ? [address] [place] [address] [facility] 09/27/2024 2:08 PM TELECOM SALES CONSULTANT Terrance Moise MD GI PROCEDURE ORDERAB LES Performing Organization Address City/State/[facility] Co de Phone Number [facility] Care Teams Quality Inspector Relationship Specialty Start Date End Date Cheo Potts MD [address] [place] [address] PCP - General 01/07/16
--- OUTSIDE RECORDS SUMMARY | 2024-09-30 15:14 | XMS_ITS | Referral Summary ---
Author Organization [facility] Address [address] [place] [address] Care Team Providers Care Product Owner Name Role Phone Cheo Potts MD Primary Care Provider Marty Torres MD Unavailable [phone] Qi Norris MD Unavailable [phone] Katharina Mac LEARNING DEVELOPER Unavailable Tree Ruiz MD PhD Unavailable [phone] Oanh Trevizo LEARNING DEVELOPER Unavailable Oanh Trevizo LEARNING DEVELOPER Unavailable Encounters Date Type Department Care Team Description 09/24/2024 9:30 AM FALAFEL CART COOK Office Visit [facility] Surgery [address] [facility] Advanced Medicine 8th [place] [address] [place] [address] Babar Green MD Pain in both lower extremities (Primary Dx) 09/23/[address] [facility] Cardiology [address] [facility] Medicine 8th [place] [address] [place] [address] Marty Torres MD Urgent Page/ Cardiac clearance (Upper Endoscopy) 09/18/2024 3:27 PM FALAFEL CART COOK - 09/18/2024 11:59 PM FALAFEL CART COOK Hospital Encounter [facility] [address] [place] [address] Oanh Trevizo NP Spinal stenosis of lumbar region without neurogenic claudication (Primary Dx); Chronic midline low back pain without sciatica; Lumbar radiculopathy; Sacroiliitis (HCC); Primary hypertension; DDD (degenerative disc disease), lumbar; Lumbar stenosis with neurogenic claudication Discharge Disposition: Discharge to home or self care 09/17/2024 2:45 PM FALAFEL CART COOK Office Visit [facility] Cardiothoracic Surgery [address] [facility] 8th Floor [address] [place] [address] Guanaco Ochoa MD Paroxysmal atrial fibrillation (CMS/HCC) (HCC) 09/11/2024 Orders Only [facility] Scheduling [address] [place] [address] Marty Torres MD 09/11/2024 3:00 PM FALAFEL CART COOK Ancillary Procedure [facility] Cardiology [address] [place] [address] [place] [address] Coron[address] artery disease [address] george coronary artery of [place] george heart with other form of angina pectoris (HCC); Palpitations; Left bundle branch block (LBBB) 09/11/2024 1:30 PM FALAFEL CART COOK Ancillary Procedure [facility] Cardiology [address] [place] [address] [place] [address] Carotid bruit, unspecified laterality 08/20/2024 10:45 AM FALAFEL CART COOK - 08/20/2024 11:59 PM FALAFEL CART COOK Hospital Encounter [facility] [address] [place] [address] Torin Almodovar MD Spinal stenosis of lumbar region without neurogenic claudication; Lumbar radiculopathy; Sacroiliitis (HCC) Discharge Disposition: Discharge to home or self care 08/19/2024 Orders Only 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 Cardiology [address] [facility] 8th [place] [address] [place] [address] Marty Torres MD Med Refill (Entresto); Entresto Samples 08/06/2024 1:45 PM FALAFEL CART COOK Ancillary Procedure [facility] Vascular Lab at the [facility] [address] [facility] 8th [place] [address] [place] [address] PAD (peripheral artery disease) (HCC) 08/05/[address] [facility] Surgery [address] [facility] Floor 1 [place] [address] Babar Green MD 07/31/2024 Orders Only [facility] Vascular Surgery [address] [facility] Medical Office Building [address] [place] [phone] Babar Green MD PAD (peripheral artery disease) ([facility]) (Primary Dx) 07/18/2024 10:15 AM FALAFEL CART COOK - 07/18/2024 11:59 PM FALAFEL CART COOK Hospital Encounter [facility] [address] [place] [address] Oanh Trevizo NP Spinal stenosis of lumbar region without neurogenic claudication (Primary Dx); Lumbar radiculopathy; Sacroiliitis (HCC); Primary hypertension Discharge Disposition: Discharge to home or self care 07/09/2024 11:30 AM FALAFEL CART COOK Office Visit [facility] Orthopaedic Surgery [address] [facility] 12th [place] [address] [place] [address] Bell Smith PA Primary osteoarthritis of both knees from Last 3 Months Allergies Active Allergy Reactions Criticality Noted Date Comments Celecoxib Other (See comments) Low Altered depth perception Ciprofloxacin Muscle pain Medium 12/06/2017 Muscle weakness Latex Rash Medium 04/11/2017 Medications calcium carbonate-vitam in D3 1,500 mg (600mg elemental) -800 unit per tabletIndicatio ns:Hypocalcemia Prevention,Prev ention of Vitamin D Deficiency 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 mouth arc welder 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 Active coenzyme Q10 200 mg capsuleIndicati ons:supplement Take 1 capsule (200 mg total) by mouth nightly Active magnesium oxide 200 mg tablet,chewable Indications:sup plement Take 200 mg by mouth arc welder 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 Active polyethylene glycol (MIRALAX) 17 gram packetIndicatio ns:constipation Take 1 packet (17 g total) by mouth nightly Active multivitamin no.44-vit D3-K 1,000-800 unit-mcg capsuleIndicati ons:Mineral Deficiency Prevention,Glneys min Deficiency Prevention 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 mouth arc welder 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 Active busPIRone (BUSPAR) 15 mg [...] 1 tablet (5 mg total) by mouth arc welder 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 06/16/20 22 Active sucralfate (CARAFATE) [...] oral Daily,Taking half of pill right now 12.5 daily, Reported on 09/24/2024 Anucort-HC 25 mg [...] GI bleeding 02/08/2023 Lumbar facet arthropathy 09/20/2022 supervisor intermediates current use of anticoagulant Lumbar radiculopathy 09/13/2022 Chronic midline low back pain without sciatica 0 09/13/2022 DDD (degenerative disc disease), lumbar 09/13/19 23 Sacroiliitis 09/13/2022 Iliac artery aneurysm (CMS/HCC) 06/20/2022 Chronic idiopathic constipation 07/16/2021 Hepatomegaly 07/16/2021 History of alcohol abuse 07/16/2021 PAD (peripheral artery disease) 02/26/2019 Nocturnal hypoxemia 02/26/2019 Coronary artery disease invo lving [facility] george coronary artery of [facility] george heart without angina pectoris 01/30/2019 Overview (01/30/2019): Added automatically from request for surgery [id number] Abnormal EKG 01/30/2019 Overview (01/30/2019): Added automatically from request for surgery [id number] Sick sinus syndrome (CMS/HCC) 04/20/2018 Overview (04/20/2018): Added automatically from request for surgery [id number] Assessment & Plan (04/27/2018 8:59 AM CDT): [...] PM CDT): - mild 3v dz on C 03/2015 - ct ASA, statin Dizziness 01/10/2017 [...] 04/19/2005 Left bundle branch block (LBBB) 07/09/2003 Immunizations Name Administration Dates Next Due DT 05/05/1998 DTaP, Unspecified 02/26/2009 Influenza, Quadrivalent, Hig h Dose, Preservative Free, Intrr 05/31/2021,05/31/2021,06/12/2020,06/12 Influenza, Trivalent, High D ose, Split, Preservative Free, Intramuscular 06/12/2020,06/15/2019,06/15/2019,06/14,06/13/2018,06/13/2018,06/25/2017 ,06/25/2017,06/26/2016,06/26/2016,06/04,06/21/2015,06/04/2014, 4,06/01/2013,06/01/2013,07/06/2012,10/2011,05/23/2008,07/05/2007,08/19/20 05,08/25/2004 Influenza, Trivalent, IM (MDV) 05/14/2015,2014 Influenza, Unspecified 06/07/2023,06/12/2020 Moderna SARS-CoV-2 Monovalen t Vaccination (12+ YRS) 10/14/2020 Pneumococcal Conjugate PCV 13 01/23/2015, 015 Social History Tobacco Use Types Packs/Day Years Used Date Smoking Tobacco: Former Cigarettes Q uit: 1972 Passive Smoke Exposure: Past Smokeless Tobacco: Never Tobacco Cessation:Counseling Given: Not Answered Alcohol Use Standard Drinks/Week Comments Yes 7 (1 standard drink = 0.6 oz pur e alcohol) [facility] Utilities Answer Date Recorded In the past 12 months has e electric, gas, oil, or water company threatened to shut off services in your [...] often do you attend chur ch or confucianist services? Never 09/22/2023 Do you belong to any clubs o r organizations such as orthodox groups, unions, fraternal or athletic groups, or [...] place to sleep or slept in a [place] [facility] [place] facility (including now)? No 09/22/2023 Personal Safety Answer Date Recorded Have you ever been in or are you currently in a harmful physical or emotional relationship or is someone making you feel afraid or unsafe? Denies 09/20/2023 Sex and Gender Information Value Date Recorded Sex Assigned at Not on file Legal Sex Male 3:18 AM FALAFEL CART COOK Gender Identity Male 11/05/2020 12:05 PM FALAFEL CART COOK Sexual Orientation Not on file Last Filed Vital Signs Vital Sign Reading Time Taken Comments Blood Pressure 143/83 09/24/2024 9:34 AM FALAFEL CART COOK Pulse 86 09/24/2024 9:34 AM FALAFEL CART COOK Temperature 36.2 ??C (97.1 ??F) 08/20/2024 11:[address] Respiratory Rate 18 09/18/2024 3:41 PM FALAFEL CART COOK Oxygen Saturation 97% 09/24/2024 9:34 AM FALAFEL CART COOK Inhaled Oxygen Concentration - - Weight 79.4 kg (175 lb) 09/24/2024 9:34 AM FALAFEL CART COOK Height 175.3 cm (5' 9 ) 09/24/2024 9:34 AM FALAFEL CART COOK Body Mass Index 25.84 09/24/2024 9:34 AM FALAFEL CART COOK Plan of Treatment Not on file Medical Devices Implanted Type Area Inspector Poising Device Identifier Shelf Expiration Date Model / Serial / Lot Medtronic Cardiac Rhythm Mgmt 5076-52 Capsurefix Novus 6.2fr 2mm 52cm Bipolar Screw In Implantable Latex Free - [id number] - [id number] Implanted:Qty: 1 on 04/24/2018 by Osmany Pina MD at [facility] Pacemaker Left: Heart Medtronic Cardiac Rhythm Mgmt [id number] 03/08/2020 5076-52 / [id number] / Medtronic Cardiac Rhythm Mgmt 5076-45 Capsurefix Novus Od6.2 Fr; Odsec2 Mm L45 Cm Bipolar; Screw In; Im - [id number] - [id number] Implanted:Qty: 1 on 04/24/2018 by Osmany Pina MD at [facility] Pacemaker Left: Heart Medtronic Cardiac Rhythm Mgmt [id number] 02/13/2020 5076-45 / [id number] / Medtronic Inc [id number] Attain Performa Starfix 5.3fr 5.1fr 88cm Quadripolar Is4-Llll Latex Free - [id number] - [id number] Implanted:Qty: 1 on 04/24/2018 by Osmany Pina MD at [facility] Pacemaker Left: Heart Medtronic Inc 02/15/2020 [id number] / [id number] / Pacemaker Cardiac 11mm 19.9cu Cm 46.5x59mm Rain Surescan - [id number] - [id number] Implanted:Qty: 1 on 04/24/2018 by Osmany Pina MD at [facility] Pacemaker Left: Chest Medtronic Inc 06/17/2019 [id number] / [id number] / [employer] Device Clsr Perclose Prostyle Sut-Mediatd Closure-Repair Sys 01292-50 - [id number] - [id number] Implanted:Qty: 1 on 09/20/2023 by Antoine Nelson MD at [facility] Vascular Closure Device N/A: Femoral Vein [employer] 05/04/2025 27829-77 / [id number] / [id number] Procedures Procedure Name Priority Date/Time Associated Diagnosis Comments TRANSTHORACIC ECHO (TTE) COMPLETE W DOPPLER/CF W CONTRAST Routine 09/11/2024 3:34 PM FALAFEL CART COOK Coronary artery disease involving [facility]. george coronary artery of [place]. george heart with other form of angina pectoris (HCC) Palpitations Left bundle branch block (LBBB) US CAROTIDS DUPLEX BILATERAL Schedule Routine, Read Routine (OP Routine) 09/11/2024 2:09 PM FALAFEL CART COOK Carotid bruit, unspecified laterality PAIN MGMT IMAGING SI JOINT LEFT Schedule Routine, Read Routine (OP Routine) 08/20/2024 12:06 PM FALAFEL CART COOK Spinal stenosis of lumbar region without neurogenic claudication Lumbar radiculopathy Sacroiliitis (HCC) DEVICE CHECK - REMOTE Routine 08/19/2024 7:38 AM FALAFEL CART COOK SCAN - LABS 08/19/2024 US ARTERIAL DOPPLER LOWER EXTREMITY BILATERAL Schedule Routine, Read Routine (OP Routine) 08/06/2024 2:00 PM FALAFEL CART COOK PAD (peripheral artery disease) (HCC) PA ARTHROCENTESIS ASPIR&/INJ MAJOR JT/BURSA W/O US Routine 07/09/2024 11:30 AM FALAFEL CART COOK Primary osteoarthritis of both knees CTA ABDOMINAL AORTA AND BILATERAL ILIOFEMORAL RUNOFF Schedule Routine, Read Routine (OP Routine) 02/18/2019 3:29 PM CDT Abnormal ankle brachial index (ODALIS) Pain in both lower extremities from Last 3 Months or Most Recently Relevant to Health Maintenance Results * TRANSTHORACIC ECHO (TTE) COMPLETE W DOPPLER/CF W CONTRAST (09/11/2024 3:34 PM FALAFEL CART COOK) LV EF 45 % CARDIOREPORT Anatomical Region Laterality Modality Ultrasound 09/11/2024 3:00 PM FALAFEL CART COOK Narrative 09/11/2024 8:00 PM FALAFEL CART COOK Patient name: Donald Fatima Date of test: 09/11/2024 Type of test: TTE w/Doppler Hospital #: 0 Date of : 1940 (M) Industrial Engineering Analyst: Daisha Musa RDCS Referring Physician: MARTY TORRES MD Contrast Agent: 1.1 ml Optison Administered, (1.9 ml wasted). Contrast Administered by: Daisha Musa RDCS Supervised/Interpreted by: Marty Torres MD Diagnosis: Location: [facility] Reason for test: CAD MV [...] 2=Hypo 3=Akinetic 4=Dyskin./Aneurysm 0=Not visualized) Parasternal Long [place]:MAS=1 BAS=1 MIL=1 HAO=1 Parasternal Short [place]:MAS=1 MIS=1 VA=1 MIL=1 MAL=1 MA=1 Apical 4 Chambers:=1 MIS=1 BIS=1 BAL=1 MAL=1 AL=1 AC=1 Apical 2 Chambers:AI=1 VA=1 BI=1 BA=1 MA=1 AA=1 AC=1 LV Global [...] MD By signing this report, the attending auto locator certifies that he or she has personally supervised and interpreted the echocardiogram and has reviewed and or edited and agrees with the written comments contained within the report. Procedure Note Marty Torres MD - 09/11/2024 Patient name: Donald Fatima Date of test: 09/11/2024 Type of test: TTE w/Doppler Hospital #: 0 Date of : 1940 (M) Industrial Engineering Analyst: Daisha Musa RDCS Referring Physician: MARTY TORRES MD Contrast Agent: 1.1 ml Optison Administered, (1.9 ml wasted). Contrast Administered by: Daisha Musa RDCS Supervised/Interpreted by: Marty Torres MD Diagnosis: Location: [facility] Reason for test: CAD MV Structure: [...] 2=Hypo 3=Akinetic 4=Dyskin./Aneurysm 0=Not visualized) Parasternal Long [place]:MAS=1 BAS=1 MIL=1 HAO=1 Parasternal Short [place]:MAS=1 MIS=1 VA=1 MIL=1 MAL=1 MA=1 Apical 4 Chambers:=1 MIS=1 BIS=1 BAL=1 MAL=1 AL=1 AC=1 Apical 2 Chambers:AI=1 VA=1 BI=1 BA=1 MA=1 AA=1 AC=1 LV Global [...] MD By signing this report, the attending auto locator certifies that he or she has personally supervised and interpreted the echocardiogram and has reviewed and or edited and agrees with the written comments contained within the report. us Marty Torres MD CV ECHO PROCEDURES Final Resul t * US Carotids Duplex Bilateral (09/11/2024 2:09 PM FALAFEL CART COOK) Anatomical Region Laterality Modality Vascular Bilateral Ultrasound 09/11/2024 1:30 PM FALAFEL CART COOK Narrative 09/11/2024 8:34 PM FALAFEL CART COOK Patient name: Donald Fatima Date of test: 09/11/2024 Hospital #: 0 ?Location: [facility] Physician(s): , MARTY TORRES MD Interpreted by: Marty Torres MD Tech: Mary Kelley [facility] Type of Test: Carotid Doppler Evaluation Procedure: [...] of test: 09/11/2024 Hospital #: 0 Location: [facility] Physician(s): , MARTY TORRES MD Interpreted by: Marty Torres MD [facility] Type of Test: Carotid Doppler Evaluation Procedure: [...] Result * Imaging SI Joint Injection Left ([id number]) (08/20/2024 12:06 PM FALAFEL CART COOK) Narrative RAD_PACS_CH - 08/20/2024 12:06 PM FALAFEL CART COOK The images from this study are not interpreted by Radiology. ??Please refer to the physician's procedure / OR operative note. us Oanh Trevizo NP IMG PAIN MGMT PROCEDURE S Final Result RAD_PACS_CH * DEVICE CHECK - REMOTE (08/19/2024 7:38 AM FALAFEL CART COOK) Anatomical Region Laterality Modality Other 08/19/2024 7:38 AM FALAFEL CART COOK Narrative 09/03/2024 6:42 PM FALAFEL CART COOK Interpretation Summary: Battery and Leads (BL) Normal parameters noted on battery and lead(s) --- 12 months remaining longevity (implanted 2017). ?Lead impedance, sensing, and RA/RV threshold trends stable and appropriate. ?? No short V-V intervals. Capture threshold chronically elevated --- LV threshold 3.25/0.4. ?? Trend shows chronically elevated LV threshold measurements. ?? LV output is programmed Adaptive, currently 5.5/0.4. Presenting Rhythm (PA) Atrial Pacing-BiVentricular Pacing (AP-BiVP) --- AP/BVP 62 [...] output isprogrammed Adaptive, currently 5.5/0.4. Presenting Rhythm (PA) Atrial Pacing-BiVentricular Pacing (AP-BiVP) --- AP/BVP 62 [...] Final Result * SCAN - LABS (08/19/2024) us Berenice Olivares RN Final Result * US Arterial Doppler Lower Extremity Bilateral (08/06/2024 2:00 PM FALAFEL CART COOK) Anatomical Region Laterality Modality Vascular Bilateral Ultrasound 08/06/2024 1:31 PM FALAFEL CART COOK Narrative 08/06/2024 9:20 PM FALAFEL CART COOK [facility] - Department of Vascular Surgery, Vascular Laboratory [address] [place] [address] Lower Extremity Arterial Doppler Report Patient Name: DONALD FATIMA : 1940 Study Date: 08/06/2024 1:31:00 PM Gender: M Tech: Oanh Chicas T Location: [facility] Provider: BABAR GREEN Quality: Adequate Order Provider: BABAR GREEN PROCEDURES: Arterial Report: Bilateral lower extremity arterial Doppler exam at rest. INDICATIONS: Dx: PAD (peripheral artery disease) (HCC) [I73.9 (ICD-10-CM)] I73.9 Peripheral vascular disease, unspecified. Measurements: Right - ? Left - Measurement ?Value ?Units ?Measurement ?Value ? Units Rt Brachial Pressure ? 126 ?mmHg ? Lt Brachial Pressure ? 125 ? mmHg Rt HOSPICE NURSE Pressure ?>254 ? mmHg ? Lt HOSPICE NURSE Pressure ?>254 ?mmHg Rt DPA Pressure ?>254 [...] - ? Left - - FINDINGS: Performing Industrial Engineering Analyst: Oanh Chicas RVT. Bilateral All Levels : [...] Alverto Leavitt MD FACS 08/06/2024 9:20:38 PM FALAFEL CART COOK Procedure Note Alverto Leavitt MD - 08/06/[address] [facility] - Department of Vascular Surgery,Vascular Laboratory [address] [place] [address] Lower Extremity Arterial Doppler Report Patient Name: DONALD FATIMA : 1940 Study Date: 08/06/2024 1:31:00 PM Gender: M Tech: Oanh Chicas RVT Location: [facility] Ref Provider: BABAR GREEN Quality: Adequate Order Provider: BABAR GREEN PROCEDURES: Arterial Report: Bilateral lower extremity arterial Doppler exam at rest. INDICATIONS: Dx: PAD (peripheral artery disease) (HCC) [I73.9 (ICD-10-CM)] I73.9 Peripheral vascular disease, unspecified. Measurements: Right - Left- Measurement Value Units Measurement ValueUnits Rt Brachial Pressure 126 mmHg Lt Brachial Pressure 125mmHg Rt HOSPICE NURSE Pressure >254 mmHg Lt HOSPICE NURSE Pressure >254mmHg Rt DPA Pressure >254 mmHg Lt DPA Pressure 254mmHg Rt 1st Digit Pressure 94 mmHg Lt 1st Digit Pressure 97mmHg Rt PT ODALIS Resting NC Lt PT ODALIS Resting NC Rt AT ODALIS Resting NC Lt AT ODALIS Resting NC Rt Digit/Arm Index 0.75 Lt Digit/Arm Index 0.77 Measurement Value Units Measurement ValueUnits Right - Left- - FINDINGS: Performing Industrial Engineering Analyst: Oanh Chicas RVT. Bilateral All Levels : [...] above. Electronically Signed By: Alverto Leavitt MD [facility] 08/06/2024 9:20:38 PM FALAFEL CART COOK us Babar Green MD IMG US PROCEDURES Final Result * PA ARTHROCENTESIS ASPIR&/INJ MAJOR JT/BURSA W/O US (07/09/2024 11:30 AM FALAFEL CART COOK) Narrative Bell Smith PA - 07/09/2024 11:30 AM FALAFEL CART COOK Bell Smith PA ? 07/09/2024 ??1:33 PM [...] the procedure well with no immediate complications us Bell HUYNH IN CLINIC/BEDSIDE OR DERABLES Final [...] Recently Relevant to Health Maintenance Insurance MEDICARE [facility] MEDICARE SUPPLEMENT MEDICARE Member Subscriber Plan / Payer (Ef fective 2007-Present) Name:Donald Fatima Member ID:[id number] Relation to Subscriber:Self Name:KushalDonald Tarik Subscriber ID:[id number] Payer ID:[id number] Group ID:Not on file Type:MEDICARE TRADITIONAL Address: [place] [id number] MEDICARE MEDICARE [facility] MEDICARE BLUE CROSS MEDICARE SUPPLEMENT Advance Directives For more information, please contact: [phone] * Full Code (Latest Code Status on File) Date Activated Date Inactivated Comments 09/20/2023 6:27 PM 09/21/2023 7:45 PM * Full Code Date Activated Date Inactivated Comments 04/24/2018 5:50 PM 04/27/2018 2:46 PM * Full Code Date Activated Date Inactivated Comments 03/24/2018 11:24 PM 03/25/2018 4:51 PM Care Teams Product Owner Relationship Specialty Start Date End Date Cheo Potts MD [address] [place] [address] PCP - General 01/03/17 Marty Torres MD [address] [facility] [address] [place] [address] Consulting Physician Cardiology 11/15/18 Qi Norris MD [address] [address] Referring Physician Gastroenterology 05/10/23 Katharina Mac, [place] [address] [address] Nurse Practitioner Cardiology 11/21/23 Tree Ruiz MD PhD [address] [address] Consulting Physician Cardiology 11/21/23 [place] [address] [address] Nurse Practitioner Materials And Processes Manager 07/18/24 [place] [address] [address] Nurse Practitioner Materials And Processes Manager 09/18/24
--- OUTSIDE RECORDS SUMMARY | 2024-09-30 15:14 | XMS_ITS | Encounter Summary ---
Author Organization [facility] Address [address] [place] [address] Phone Care Team Providers Care Physical Therapy Director Name Role Phone Cheo Potts MD Primary Care Provider Marques Barksdale DO Unavailable [phone] Barbara Warner APRN, SCIENCE INTERN Unavailable Qi Norris MD Unavailable [phone] Reason for Visit * Reason Comments Medication Refill Encounter Details Date Type Department Care Team (Late st Contact Info) Description 08/23/2024 Refill [facility] - Gastroenterology [facility] [address] [place] [id number] Barbara Warner APRN, SCIENCE INTERN [address] [place] [address] Medication Refill Social History Tobacco Use Types Packs/Day Years Used Date Smoking Tobacco: Former Cigarettes 1 12 0 11/12/1959 - 11/12/1971 Smokeless Tobacco: Never Alcohol Use Standard Drinks/Week Comments Not Currently 0 (1 standard drink = 0.6 oz pur e alcohol) Sexually Active Control Partners Comments Not Currently Sex and Gender Information Value Date Recorded Sex Assigned at Not on file Legal Sex Male 8:45 PM CDT Gender Identity Not on file Sexual Orientation Not on file 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 RNATIONAL BANK MANAGER documented in this encounter Plan of Treatment Not on file documented as of this encounter Visit Diagnoses Diagnosis Gastroesophageal reflux disease, unspecified whether esophagitis present documented in this encounter Care Teams Physical Therapy Director Relationship Specialty Start Date End Date Cheo Potts MD [address] [place] [address] [address] [place] [address] PCP - General Family Medicine 11/09/15 Marques Barksdale DO [address] [place] [address] [address] [place] [address] Gastroenterology 11/12/15 Barbara Warner APRN, SCIENCE INTERN [address] [place] [address] Nurse Practitioner Advanced Practice Nurse 10/24/22 Qi Norris MD [address] [place] [address] Consulting Physician Gastroenterology 05/12/22 documented as of this encounter
--- OUTSIDE RECORDS SUMMARY | 2024-09-30 15:14 | XMS_ITS | Encounter Summary ---
Author Organization [facility] Address [address] [place] [address] Phone Care Team Providers Care Pocket Maker Name Role Phone Cheo Potts MD Primary Care Provider Neftaly Portillo MD Unavailable [phone] Tree Ruiz MD PhD Unavailable [phone] Katharina Mac INSTRUMENTATION SPECIALIST Unavailable Qi Norris MD Unavailable [phone] Yuly Nieves RN Unavailable Katharina Mac INSTRUMENTATION SPECIALIST Unavailable [phone] Tree Ruiz MD PhD Unavailable [phone] Oanh Trevizo INSTRUMENTATION SPECIALIST Unavailable [phone] Oanh Trevizo INSTRUMENTATION SPECIALIST Unavailable Reason for Visit * Reason Onset Date Comments CALL BACK 04/20/2018 Encounter Details Date Type Department Care Team (Late st Contact Info) Description 04/20/2018 Telephone [facility] Cardiology [address] [facility] Advanced Medicine 8th [place] [address] [place] [address] Tree Ruiz MD PhD [address] [facility] [address] [place] [address] CALL BACK Social History Tobacco Use Types Packs/Day Years Used Date Smoking Tobacco: Former Smokeless Tobacco: Never Alcohol Use Standard Drinks/Week Comments No 7 (1 standard drink = 0.6 oz pur e alcohol) Sex and Gender Information Value Date Recorded Sex Assigned at Not on file 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 Gender Identity Male 11/05/2020 12:05 PM 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 Sexual Orientation Not on file documented as of this encounter Plan of Treatment Not on file documented as of this encounter Visit Diagnoses Not on filedocumented in this encounter Care Teams Pocket Maker Relationship Specialty Start Date End Date Cheo Potts MD [address] [place] [address] PCP - General 01/03/17 Neftaly Portillo MD [address] [facility] [address] [place] [address] Consulting Physician Cardiology 11/15/18 Tree Ruiz MD PhD [address] [facility] [address] [place] [address] Referring Physician Cardiology 12/10/20 11/20/23 Katharina Mac NP [address] [facility] [address] [place] [address] Referring Physician Cardiology 12/10/20 11/20/23 Qi Norris MD [address] [address] Referring Physician Gastroenterology 05/10/23 Yuly Nieves RN [address] [facility] [address] [place] [address] [facility] Outpatient Process Tech 09/22/23 10/18/23 Katharina Mac NP [address] [facility] [address] [place] [address] Nurse Practitioner Cardiology 11/21/23 Tree Ruiz MD PhD [address] [facility] [address] [place], [place] [id number] Consulting Physician Cardiology 11/21/23 [place] [address] [facility] [address] [place] [address] Nurse Practitioner Yarn Bleaching Machine Operator 07/18/24 [place] [address] [facility] [address] [place] [address] Nurse Practitioner Yarn Bleaching Machine Operator 09/18/24 documented as of this encounter
--- OUTSIDE RECORDS SUMMARY | 2024-09-30 15:14 | XMS_ITS | Clinical Summary ---
Author Organization [facility] Address [address], [facility] [address] [place] [address] Phone Care Team Providers Care Cupola Operator Name Role Phone Cheo Potts MD Primary Care Provider Marques Barksdale DO Unavailable [phone] Barbara Warner APRN, MARKETING DEVELOPMENT MANAGER Unavailable Qi Norris MD Unavailable [phone] Allergies Active Allergy Reactions Criticality Noted Date Comments Celecoxib Other (see Comments) Low 03/03/2011 Feels funny Ciprofloxacin Other (see Comments) 03/14/2018 Muscle aches, weakness, Sep 2017 Latex Rash 04/11/2017 Medications polyethylene glycol (GLYCOLAX) 17 GM/SCOOP PowderIndicatio ns:once a day 17 g. Indications: once a day Active Multiple Vitamin (MULTIVITAMINS) CapsuleIndicati ons:once a day Indications: once a day Active mometasone (NASONEX) 50 MCG/ACT Suspension 2 Sprays by Nasal route daily as needed. Use in each nostril as directed. Active MAGNESIUM PO Take 200 mg by mouth daily. Active Coenzyme Q10 (CO Q 10) 10 MG Capsule Take 200 mg by mouth daily. Active Calcium Carbonate-Vitam in D (CALCIUM 600+D3 PO) Take by mouth daily. Active apixaban (ELIQUIS) 5 MG TabletIndicatio ns:TO HOLD [address] NORRIS'S NOTE FOR EGD ON 11/01/22 Take 5 mg by mouth 2 times daily. Indications: TO HOLD [address] NORRIS'S NOTE FOR EGD ON 11/01/22 9 Active atorvastatin (LIPITOR) 40 MG Tablet 3 9 Active busPIRone (BUSPAR) 10 MG Tablet Take 5 mg by mouth 2 times daily. 5 9 Active furosemide (LASIX) 20 MG Tablet TAKE 1 TABLET(20 MG) BY MOUTH DAILY 9 Active sacubitril-vals kvng (ENTRESTO) 24-26 MG Tablet Take 1 Tab by mouth 2 times daily. Active sotalol (BETAPACE) 120 MG Tablet Take 120 mg by mouth 2 times daily. Active B Complex Vitamins (Vitamin B-Complex) Tablet Take 1 Tab by mouth. Active Acetaminophen (TYLENOL PO) Take by mouth. Active other by Other route. Alreds 2x a day; eye vit Active busPIRone (BUSPAR) 15 MG Tablet 2 Active azelastine (ASTELIN) 0.1 % Solution USE 1 SPRAY IN EACH NOSTRIL EVERY 12 HOURS 2 Active amLODIPine (NORVASC) 5 MG Tablet 7.5 mg. 2 Active finasteride (PROSCAR) 5 MG Tablet Take 5 mg by mouth daily. Active Multiple Vitamins-Minera ls (PreserVision AREDS 2+Multi Vit) Capsule Take by mouth. Active prochlorperazin e (COMPAZINE) 10 MG TabletIndicatio ns:Nausea Take 1 Tablet by mouth every 6 hours as needed for Nausea - 1st line. 30 Tablet 1 3 Active traMADol (ULTRAM) 50 MG Tablet Take 50 mg by mouth daily as needed. Active Vitamin D3 1000 UNIT Tablet Take 25 mcg by mouth daily. Active Dapagliflozin Propanediol 10 MG Tablet Take 10 mg by mouth. 4 Active spironolactone (ALDACTONE) 25 MG Tablet Take 25 mg by mouth daily. 4 10/16/19 25 Active ketoconazole (NIZORAL) 2 % Cream APPLY TOPICALLY TO THE AFFECTED AREA OF FACE 1 TO 2 TIMES DAILY UNTIL GONE 4 Active hydrocortisone (ANUSOL-HC) 25 MG SuppositoryIndi cations:Hemorrh oids, unspecified hemorrhoid type 25 mg by Rectal route 2 times daily. 12 Suppository 4 Active sucralfate (CARAFATE) 1 GM Tablet TAKE 1 TABLET BY MOUTH THREE TIMES DAILY 120 Tablet 3 4 Active pantoprazole (PROTONIX) 40 MG Tablet Delayed ResponseIndicat ions:Gastroesop hageal reflux disease, unspecified whether esophagitis present TAKE 1 TABLET BY MOUTH TWICE DAILY 180 Tablet 1 4 Active Active Problems Problem Noted Date Diagnosed Date Chronic midline low back pain without sciatica 0 09/13/2022 access lead current use of anticoagulant 3 History of alcohol abuse 07/16/2021 Hepatomegaly 07/16/2021 Chronic idiopathic constipation 07/16/2021 Gastroesophageal reflux disease without esophagi tis 07/16/2021 PAD (peripheral artery disease) 02/26/2019 Coronary artery disease invo [place]ving [place] coronary artery of [place] heart without angina pectoris 01/30/2019 Overview (10/24/2022): Added automatically from request for surgery [id number] Sick sinus syndrome 04/20/2018 Overview (10/24/2022): Added automatically from request for surgery [id number] Last Assessment & Plan: Cardiac resynchronization defibrillator implanted on 04/24 with start of sotalol 120mg BID on same evening. -Post procedure x-ray without pneumothorax -Patient continues to feel palpitations and strong heart beats, still in bigeminy on tele -Increased sotalol to 160 mg BID and dc metoprolol with improvement of strong heart beat symptoms -Will continue to monitor on tele and get daily EKGs BPPV (benign paroxysmal positional vertigo) 03/05 Overview (10/24/2022): Last Assessment & Plan: - encourage Felicita and Martini-Daroff maneuvers - ctm Chronic systolic heart failure 03/24/2018 Overview (10/24/2022): Last Assessment & Plan: Hx of HFrEF (EF 50% on 02/18) - TTE 02/18: mod global LV systolic dysfunction, with prominent septal bounce, and septal akinesis, EF ~50%, diastolic function w/ impaired relaxation, trace AR, MR, mild TR, PASP 25 + RAP - at home on sotalol & ramipril 7.5 - ct sotalol, lisinopril 20 HTN (hypertension) 03/24/2018 Overview (10/24/2022): Last Assessment & Plan: Continue amlodipine 5mg and lisinopril 5mg daily Hyperlipidemia 03/24/2018 Overview (10/24/2022): Last Assessment & Plan: - ct home rosuvastatin 20 PVC's (premature ventricular contractions) 03/24 Overview (10/24/2022): Last Assessment & Plan: - hx of PVCs - per pt, recent Holtor monitor showed ~9% PVCs. No records found - tele monitoring overnight without any significant PVC burden - ct sotalol 40mg BID Chronic pain of both knees 02/03/2017 Cardiomyopathy 03/02/2015 Obstructive sleep apnea syndrome 03/02/2015 Atrial fibrillation 01/23/2008 Left bundle branch block (LBBB) 07/09/2003 Encounters Date Type Department Care Team Description 08/23/2024 Refill [facility] - Gastroenterology - [place] [address] [place] [id number] Barbara Warner APRN, CHAN Medication Refill 07/19/2024 Telephone [facility] - Gastroenterology - [place] [address] [place] [phone] Barbara Warner APRN, CNP 07/12/2024 Refill [facility] - [facility]astroenterology - [place] [address] [place] [address] Barbara Warner APRN, MARKETING DEVELOPMENT MANAGER Medication Refill from Last 3 Months Immunizations Immunization Administration Dates Next Due Covid-19, Mrna, Lnp-s, PF, 1 00 mcg/0.5 mL Dose (Moderna) 10/14/2020 Influenza Vaccine greater than 3 yrs 05/14/2015 Influenza, High-dose, Quadrivalent 05/31/2021, Influenza, Seasonal, Injecta ble, Undefined 05/14/2015 Influenza, high-dose, trivalent, PF 05/2020,06/15/2019,06/13/2018,2016,06/26/2016,06/21/2015,06/04/2014,0 06/01/2013,07/06/2012 Pneumococcal Vaccine - 13 Valent 01/23/2015 Family History Medical History Relation Name Comments Arrhythmia Brother x3 Colon Polyps Brother x3 Diabetes Brother x3 Hypertension Brother x3 Kidney Disease Brother x3 Pacemaker Brother x3 Thyroid Disease Brother x3 Arrhythmia Father Cancer Father larynx Hypertension Father Kidney Disease Father Hypertension Mother Stroke Mother hemorrhagic Thyroid Disease Other nephew Congestive Heart Failure Sister x7 Diabetes Sister x7 Heart Disease Sister x7 Hypertension Sister x7 Relation Name Status Comments Brother x3 Father Mother Other nephew Sister x7 Social History Tobacco Use Types Packs/Day Years Used Date Smoking Tobacco: Former Cigarettes 1 12 0 11/12/1959 - 11/12/1971 Smokeless Tobacco: Never Tobacco Cessation:Counseling Given: Not Answered Alcohol Use Standard Drinks/Week Comments Not Currently [...] file Not on file Not on file Last Filed Vital Signs Vital Sign Reading Time Taken Comments Blood Pressure 114/80 12/01/2023 11:14 AM CDT Pulse 69 12/01/2023 11:14 AM CDT Temperature 37 ??C (98.6 ??F) 12/01/2023 11:14 AM CDT Respiratory Rate 14 12/01/2023 11:14 AM CDT Oxygen Saturation 96% 12/01/2023 11:14 AM CDT Inhaled Oxygen Concentration - - Weight 79.6 kg (175 lb 6.4 oz) 12/01/2023 11:14 AM CDT Height 172.7 cm (5' 8 ) 12/01/2023 11:14 AM CDT Body Mass Index 26.67 12/01/2023 11:14 AM CDT Plan of Treatment Health Maintenance Due Date Last Done Comments Hepatitis C Virus (HCV) Screening 1940 TdaP Immunization 1942 Cologuard 1992 Immunochemical Fecal Occult Blood 1992 Influenza Immunization (#1) 05/05/202412/2022, 06/04/2023, 05/30/2022, Additional history exists SARS-COV-2 Immunization ( season) 2024 06/13/2023, 05/16/2022, 12/04/2021, Additional history exists Colonoscopy 03/19/2025 03/19/2020, 04/04, 03/08/2012 Colorectal Cancer Screening 03/19/2025 Colonoscopy High Risk 03/19/2030 03/19/2020 , 04/13/2017, 03/08/2012 Zoster Immunization Completed 01/15/2023, Pneumococcal Immunization (50+ years) Completed 04/30/2023, 01/23/2015 Pneumococcal Immunization Combined Discontinued 04/30/2023, 01/23/2015 Respiratory Syncytial Virus (RSV) Immunization (Adult) Completed 04/30/2023 Hepatitis B Immunization Aged Out No longer eligible based on patient's age to complete this topic Meningococcal Immunization (ACWY) Aged Out No longer eligible based on patient's age to complete this topic Rotavirus Immunization Aged Out No lo nger eligible based on patient's age to complete this topic Procedures Procedure Name Priority Date/Time Associated Diagnosis Comments LAB - MISCELLANEOUS 07/04/2024 1 2:00 AM CDT COMPLETE BLOOD COUNT (CBC) WITH DIFF 07/03/2024 12:00 AM CDT COLONOSCOPY Routine 03/19/2020 from Last 3 Months or Most Recently Relevant to Health Maintenance Results * LAB - MISCELLANEOUS (07/04/2024 12:00 AM CDT) 07/04/2024 Barbara Warner APRN, MARKETING DEVELOPMENT MANAGER CHEMISTRY ORDERAB LES Final Result Performing Organization Address [facility] de Phone Number SCAN * COMPLETE BLOOD COUNT (CBC) WITH DIFF (07/03/2024 12:00 AM CDT) 07/03/2024 Barbara Warner APRN, MARKETING DEVELOPMENT MANAGER HEMATOLOGY ORDERA BLES Final Result Performing Organization Address [facility] de Phone Number SCAN * COLONOSCOPY (03/19/2020) Marques Barksdale DO PROCEDURE/MINOR SURGICAL ORDERA BLES Final Result from Last 3 Months or Most Recently Relevant to Health Maintenance Insurance MEDICARE [facility] Care Teams Cupola Operator Relationship Specialty Start Date End Date Cheo Potts MD [address] [place] [address] PCP - General Family Medicine 11/09/15 Marqeus Barksdale DO [address] [place] [address] Gastroenterology 11/12/15 Barbara Warner APRN, MARKETING DEVELOPMENT MANAGER [address] [place] [address] Nurse Practitioner Advanced Practice Nurse 10/24/22 Qi Norris MD [address] [place] [address] Consulting Physician Gastroenterology 05/12/22
--- OUTSIDE RECORDS SUMMARY | 2024-09-30 15:14 | XMS_ITS | Encounter Summary ---
Author Organization [facility] Address [address] [place] [address] Phone Care Team Providers Care Voltage Tester Name Role Phone Cheo Potts MD Primary Care Provider Marques Barksdale DO Unavailable [phone] Barbara Warner APRN, SQL SERVER CONSULTANT Unavailable iQ Norris MD Unavailable [phone] Reason for Visit * Reason Comments Medication Refill Encounter Details Date Type Department Care Team (Late st Contact Info) Description 11/20/2022 Refill [facility] - Gastroenterology [facility] [address] [place] [address] Renetta Jacob, [facility] [address] [place] [address] Medication Refill Social History Tobacco Use Types [...] file Not on file Not on file COVID-19 Exposure Response Date Recorded In the last 10 days, have yo u been in contact with someone who was confirmed or suspected to have Coronavirus/COVID-19? No / Unsure 11/14/2022 11:02 AM CDT documented as of this encounter Miscellaneous Notes * Telephone Encounter - Oanh Recinos RN - 11/21/2022 9:02 AM CDT Refill request for pantoprazole received. Medication passed protocol, routing to provider due to previous provider is no longer with office. Please review and approve. documented in this encounter Plan of Treatment Not on file documented as of this encounter Visit Diagnoses Diagnosis Gastroesophageal reflux disease, unspecified whether esophagitis present documented in this encounter Care Teams Voltage Tester Relationship Specialty Start Date End Date Cheo Potts MD [address] [facility] [address] [place] [address] PCP - General Family Medicine 11/09/15 Marques Barksdale DO [address] [place] [address] [address] [place] [address] Gastroenterology 11/12/15 Barbara Warner APRN, SQL SERVER CONSULTANT [address] [place] [address] Nurse Practitioner Advanced Practice Nurse 10/24/22 Qi Norris MD [address] [place] [address] Consulting Physician Gastroenterology 05/12/22 documented as of this encounter
--- OUTSIDE RECORDS SUMMARY | 2024-09-30 15:14 | XMS_ITS | Clinical Summary ---
Author Organization [facility] [employer] Address [address] [place] [address] Care Team Providers Care Channel Supervisor Name Role Phone Cheo Potts MD Primary Care Provider [phone] Source Comments [facility] [employer],non-owned Affiliates and Associated Physician Practices is amultiple site organization consisting of ambulatory clinics and hospital sitesin [place], [place], [place] and [place]. This disclosure is being madepursuant to the Care Everywhere program and may not contain all information available regarding this patient. Last updated 18.[facility] [employer] Allergies Active Allergy Reactions Criticality Noted Date Comments Ciprofloxacin Other Low 09/17/2024 FEELS BAD Latex Itching 09/17/2024 Medications * Be aware that medications may not be up to date on this document. Alwaysverify current medications with the patient. Medication Sig Dispensed Refills Start Date End Date Status apixaban (Eliquis) 5 MG tablet Take 1 (one) tablet by mouth 2 times daily 05/22/2023 Active atorvastatin (Lipitor) 20 MG tablet Take 1 (one) tablet by mouth at bedtime 08/19/2024 5 Active azelastine (Astelin) 0.1 % nasal spray [place] 2 (two) sprays into each nostril once daily 09/03/2024 Active busPIRone (Buspar) 15 MG tablet Take 0.5 (one-half) tablet by mouth 2 times daily 11/17/2023 Active Coenzyme Q10 10 MG Take 200 mg by mouth once daily Active dapagliflozin propanediol (Farxiga) 10 MG tablet Take 1 (one) tablet by mouth once daily 09/19/2023 6 Active finasteride (Proscar) 5 MG tablet Take 1 (one) tablet by mouth once daily Active Anucort-HC 25 MG suppository Insert 1 (one) suppository into the rectum 2 times daily as needed 03/11/2024 Active polyethylene glycol 3350 (Miralax) 17 g packet Take 17 (seventeen) g by mouth at bedtime Active sacubitril-valsar laguna (Entresto) 24-26 MG tablet Take 1 (one) tablet by mouth 2 times daily 08/23/2024 Active sotalol (Betapace) 120 MG tablet Take 1 (one) tablet by mouth 2 times daily 04/03/2024 Active spironolactone (Aldactone) 25 MG tablet Take 1 (one) tablet by mouth once daily 10/17/2023 5 Active traMADol (Ultram) 50 MG tablet Take 1 (one) tablet by mouth 3 times daily as needed 08/26/2024 Active omeprazole (PriLOSEC) 40 MG capsule Take 1 (one) capsule by mouth 2 times daily, 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 and supper 120 capsule 2 09/17/2024 Active pantoprazole EC (Protonix) 40 MG tablet Take 1 (one) tablet by mouth 2 times daily 5 Discontinue d(Clinical Decision) omeprazole (PriLOSEC) 40 MG capsule Take 1 (one) capsule by mouth 2 times daily, 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 and supper 120 capsule 2 09/17/2024 5 Discontinue d(Reorder) Active Problems Problem Noted Date Diagnosed Date Vitreous degeneration 10/16/2012 Myopia 09/10/2012 Encounters Date Type Department Care Team Description 09/27/2024 2:36 PM SENIOR INTEGRATION ARCHITECT Anesthesia Event [facility] [address] [place] [address] Cassy Almanza MD Schlarman, Nicholas C, MD 09/27/2024 1:45 PM SENIOR INTEGRATION ARCHITECT - 09/27/2024 2:15 PM SENIOR INTEGRATION ARCHITECT Surgery [facility] [address] [place] [address] Terrance Moise MD EGD 09/27/2024 12:46 PM SENIOR INTEGRATION ARCHITECT - 09/27/2024 3:34 PM SENIOR INTEGRATION ARCHITECT Hospital Encounter [facility] [address] [place] [address] Terrance Moise MD Surgery General Discharge Disposition: Home or Self Care 09/27/2024 Travel 09/25/2024 Telephone [facility] - [address] [address] Emy Acosta, RN Appointment 09/25/2024 Patient Outreach [facility] [address] [place] [address] Gerri Whitman, CLARISSA 09/19/2024 Patient Outreach [facility] [address] [place] [address] Gerri Whitman, RN 09/17/2024 1:00 PM SENIOR INTEGRATION ARCHITECT Office Visit [facility] - [address] [address] Manish Calloway MD Right upper quadrant abdominal pain (Primary Dx); Acute gastric ulcer, unspecified whether gastric ulcer hemorrhage or perforation present 09/17/2024 Refill [facility] - [address] [address] Manish Calloway MD MEDICATION REFILL 09/17/2024 Travel from Last 3 Months Social History Tobacco Use Types Packs/Day Years [...] Comments Blood Pressure 128/81 09/27/2024 3:15 PM SENIOR INTEGRATION ARCHITECT Pulse 61 09/27/2024 3:15 PM SENIOR INTEGRATION ARCHITECT Temperature 36.3 ??C (97.3 ??F) 09/27/2024 2:56 PM CS T Respiratory Rate 11 09/27/2024 3:15 PM SENIOR INTEGRATION ARCHITECT Oxygen Saturation 93% 09/27/2024 3:15 PM SENIOR INTEGRATION ARCHITECT Inhaled Oxygen Concentration - - Weight 80.7 kg (178 lb) 09/27/2024 1:14 PM SENIOR INTEGRATION ARCHITECT Height 172.7 cm (5' 8 ) 09/27/2024 1:14 PM SENIOR INTEGRATION ARCHITECT Body Mass Index 27.06 09/27/2024 1:14 PM SENIOR INTEGRATION ARCHITECT Plan of Treatment Upcoming Encounters Date Type Department Care Team (Late st Contact Info) Description 12/17/2024 12:30 PM CDT Office Visit [facility] - GI [address] [facility] [place] [address] Manish Calloway MD [address] [facility] [address] [place] [address] Health Maintenance Due Date Last Done Comments MEDICARE AWV ? 12 MONTHS 1940 DTAP/TDAP/TD VACCINES (1 - Tdap) 1961 PNEUMOCOCCAL VACCINE 50+ (1 of 1 - PCV) 1992 ZOSTER VACCINE (1 of 2) 1992 Respiratory Syncytial Virus (RSV) Vaccine Pt: or over 60 yrs (1 - 1-dose 75+ series) 2017 COVID-19 VACCINE (2 - season) 2024 10/14/2020 INFLUENZA VACCINE (#1) 2024 3, 06/12/2020, 06/15/2019, Additional history exists DEPRESSION SCREENING 09/04/2024 HEPATITIS B VACCINE Aged Out No longe r eligible based on patient's age to complete this topic HIB VACCINE Aged Out No longer eligi ble based on patient's age to complete this topic HPV VACCINE Aged Out No longer eligi ble based on patient's age to complete this topic MENINGOCOCCAL (Group B) VACCINE Aged Out No longer eligible based on patient's age to complete this topic MENINGOCOCCAL VACCINE Aged Out No cayden dylan eligible based on patient's age to complete this topic Goals Goal Patient Goal Type Associated Problems Recent Progress Patient-Stated? Author Medication Management General No Berenice Preciado, deputy grand jury Procedure Name Priority Date/Time Associated Diagnosis Comments PATHOLOGY TISSUE Routine 09/27/2024 2:44 PM SENIOR INTEGRATION ARCHITECT Acute gastric ulcer, unspecified whether gastric ulcer hemorrhage or perforation present VT ED EGD FLEX TRANSORAL DX 09/27/2024 2:31 PM SENIOR INTEGRATION ARCHITECT Acute gastric ulcer, unspecified whether gastric ulcer hemorrhage or perforation present Special Needs EGD Received: Today Berenice Preciado, RN J Carlos, Gerri Rangel, RN Good Morning, I am the new nurse for Dr. Calloway. Can you please schedule this pt for an EGD. Thanks Received Date Received Time Sep 18, 2024 9:13 AM EGD Routine 09/27/2024 2:08 PM SENIOR INTEGRATION ARCHITECT from Last 3 Months Results * PATHOLOGY TISSUE (09/27/2024 2:44 PM SENIOR INTEGRATION ARCHITECT) Case Report Surgical Pathology Report ? Case: [id number] ? Authorizing Provider: ??Terrance Moise MD ?Collected: ? 09/27/2024 02:44 PM ? Ordering Location: ? [facility] ?Received: ?09/27/2024 03:02 PM ? Pathologist: ? Rhona Cedeño MD ? Specimen: ?Gastric, Gastric Biopsy r/o H-Pylori ? 09/30/2024 1:52 PM SENIOR INTEGRATION ARCHITECT [facility] Final Diagnosis Stomach, biopsy (A): - No histopathologic abnormality - No active inflammation or H. pylori organisms (H&E examination) 09/30/2024 1:52 PM SENIOR INTEGRATION ARCHITECT [facility] Microscopic Description and Comment Microscopic examination substantiates the final diagnosis. 09/30/2024 1:52 PM [facility] Clinical History The patient is 84-year-old man who presents for follow-up of gastric ulcer. Operative procedure/findings: EGD - multiple fundic gland gastric polyps; gastritis, biopsied to rule out H. pylori 09/30/2024 1:52 PM [facility] Gross Description The requisition and [...] cassette labeled A1. RB 09/30/2024 1:52 PM [facility] Pathologist Location at [facility] 09/30/2024 1:52 PM [facility] Disclaimer The performance characteristics of all immunohistochemical and indirect immunofluorescence stains (if any) cited in this report were determined by the Histopathology Laboratory of [facility]. Some of these tests were [...] the attending (teaching) pathologist. 09/30/2024 1:52 PM [facility] Embedded Images 09/30/2024 1:52 PM [facility] Biopsy, NOS GASTRIC CONTENTS SPECIMEN / Unknown 09/27/2024 2:44 PM SENIOR INTEGRATION ARCHITECT 09/27/2024 3:02 PM SENIOR INTEGRATION ARCHITECT Comment:Pre-op diagnosis: Acute gastric ulcer, unspecified whether gastric ulcer hemorrhage or perforation present [K25.3] Terrance Moise MD LAB - PATHOLOGY/CYTO LOGY ORDERABLES [facility] [address] [place] [address], [facility] [phone] * EGD (09/27/2024 2:08 PM SENIOR INTEGRATION ARCHITECT) Report Endoscopy POC Endoscopy Department Report _ Patient Name: Cole Fatima ?Procedure Date: 09/27/2024 2:08 PM ?Date of : 1940 Classification: Outpatient ?Gender: Male Ethnicity: Not or ? Race: White _ Providers: ?Terrance Moise MD, Steven Dean (Fellow) Referring MD: ? Cheo Potts (Referring MD) Procedure: ?Upper GI endoscopy Indications: ?Follow-up of [...] Procedure Code(s): ? --- Professional --- ? 22706, Esophagogastroduo denoscopy, flexible, transoral; with biopsy, ? single or multiple Diagnosis Code(s): ?--- Professional --- ?K31.7, Polyp of stomach and duodenum ?K29.70, Gastritis, unspecified, without bleeding ?K25.7, Chronic gastric ulcer without hemorrhage or ?perforation CPT copyright 2021 [employer] [employer]. All rights reserved. The codes documented in this report are preliminary and upon medical coder review may be revised to meet current compliance requirements. Terrance Moise MD 09/27/2024 3:05:15 PM Note Initiated On: 09/27/2024 2:08 PM Number of Addenda: 0 ? [facility] ? [address] [place] [address] [facility] 09/27/2024 2:08 PM SENIOR INTEGRATION ARCHITECT Terrance Moise MD GI PROCEDURE ORDERAB LES [facility] from Last 3 Months Care Teams Channel Supervisor Relationship Specialty Start Date End Date Cheo Potts MD [address] [place] [address] PCP - General 01/07/16
--- OUTSIDE RECORDS SUMMARY | 2024-09-30 15:14 | XMS_ITS | Referral Summary ---
Author Organization [facility] Address [address] [address] [place] [address] Care Team Providers Care Farm Agent Name Role Phone Cheo Potts MD Primary Care Provider Source Comments [facility],non-owned Affiliates and Associated Physician Practices is amultiple site organization consisting of ambulatory clinics and hospital sitesin [place], [place], [place]. This disclosure is being madepursuant to the Care Everywhere program and may not contain all information available regarding this patient. Last updated 18.[facility] Encounters Date Type Department Care Team Description 09/27/2024 Travel 09/27/2024 2:36 PM CALL SPECIALIST Anesthesia Event [facility] [address] [place] [id number] Cassy Almanza MD Schlarman, Nicholas C, MD 09/27/2024 1:45 PM CALL SPECIALIST - 09/27/2024 2:15 PM CALL SPECIALIST Surgery [facility] [address] [place] [address] Terrance Moise MD EGD 09/27/2024 12:46 PM CALL SPECIALIST - 09/27/2024 3:34 PM CALL SPECIALIST Hospital Encounter [facility] [address] [place] [address] Terrance Moise MD Surgery General Discharge Disposition: Home or Self Care 09/25/2024 Telephone [facility] - GI [address] [facility] [place] [address] Emy Acosta, RN Appointment 09/25/2024 Patient Outreach [facility] [address] [place] [address] Gerri Whitman RN 09/19/2024 Patient Outreach [facility] [address] [place] [address] Gerri Whitman RN 09/17/2024 Refill [facility] - GI [address] [place] [address] Manish Calloway MD MEDICATION REFILL 09/17/2024 Travel 09/17/2024 1:00 PM CALL SPECIALIST Office Visit [facility] - [address] [address] Manish Calloway MD Right upper quadrant abdominal pain (Primary Dx); Acute gastric ulcer, unspecified whether gastric ulcer hemorrhage or perforation present from Last 3 Months Allergies Active Allergy [...] Active azelastine (Astelin) 0.1 % nasal spray [place] 2 (two) sprays into each nostril once daily 09/03/2024 Active busPIRone (Buspar) 15 MG tablet Take 0.5 (one-half) tablet by mouth 2 times daily 11/17/2023 Active Coenzyme Q10 10 MG Take 200 mg by mouth once daily Active dapagliflozin propanediol (Farxiga) 10 MG tablet Take 1 (one) tablet by mouth once daily 09/19/2023 Active finasteride (Proscar) 5 MG tablet Take [...] Comments Blood Pressure 128/81 09/27/2024 3:15 PM CALL SPECIALIST Pulse 61 09/27/2024 3:15 PM CALL SPECIALIST Temperature 36.3 ??C (97.3 ??F) 09/27/2024 2:56 PM CS T Respiratory Rate 11 09/27/2024 3:15 PM CALL SPECIALIST Oxygen Saturation 93% 09/27/2024 3:15 PM CALL SPECIALIST Inhaled Oxygen Concentration - - Weight 80.7 kg (178 lb) 09/27/2024 1:14 PM CALL SPECIALIST Height 172.7 cm (5' 8 ) 09/27/2024 1:14 PM CALL SPECIALIST Body Mass Index 27.06 09/27/2024 1:14 PM CALL SPECIALIST Functional Status Functional Status Response Date of Assess ment Is person deaf or have serious hearing difficult y? No 09/27/2024 Is person blind or have serious difficulty seein g? No 09/27/2024 Does person have serious dif ficulty walking/climbing stairs? No 09/27/2024 Does person have difficulty dressing/bathing? No 09/27/2024 Does person have difficulty doing errands alone? No 09/27/2024 Cognitive Status Response Date of Assessm ent Does person have difficulty concentrating/remembering/making decisions? No 09/27/2024 Plan of Treatment Upcoming Encounters Date Type Department Care Team (Late st Contact Info) Description 12/17/2024 12:30 PM CDT Office Visit [facility] - [address] [address] Manish Calloway MD [facility] [address] Goals Goal Patient Goal Type Associated Problems Recent Progress Patient-Stated? Author Medication Management General No Berenice Preciado RN Procedures Procedure Name Priority Date/Time Associated Diagnosis Comments PATHOLOGY TISSUE Routine 09/27/2024 2:44 PM CALL SPECIALIST Acute gastric ulcer, unspecified whether gastric ulcer hemorrhage or perforation present ND ED EGD FLEX TRANSORAL DX 09/27/2024 2:31 PM CALL SPECIALIST Acute gastric ulcer, unspecified whether gastric ulcer hemorrhage or perforation present Special Needs EGD Received: Today Berenice Preciado RN Johnson, Gerri Rangel RN Good Morning, I am the new nurse for Dr. Calloway. Can you please schedule this pt for an EGD. Thanks Received Date Received Time Sep 18, 2024 9:13 AM EGD Routine 09/27/2024 2:08 PM CALL SPECIALIST from Last 3 Months Results * PATHOLOGY TISSUE (09/27/2024 2:44 PM CALL SPECIALIST) Case Report Surgical Pathology Report ? Case: [id number] ? Authorizing Provider: ??Terrance Moise MD ?Collected: ? 09/27/2024 02:44 PM ? Ordering Location: ? [facility] ?Received: ?09/27/2024 03:02 PM ? Pathologist: ? Rhona Cedeño MD ? Specimen: ?Gastric, Gastric Biopsy r/o H-Pylori ? 09/30/2024 1:52 PM [facility] Final Diagnosis Stomach, biopsy (A): - No histopathologic abnormality - No active inflammation or H. pylori organisms (H&E examination) 09/30/2024 1:52 PM [facility] Microscopic Description and Comment Microscopic examination substantiates the final diagnosis. 09/30/2024 1:52 PM [facility] Clinical History The patient is 84-year-old man who presents for follow-up of gastric ulcer. Operative procedure/findings: EGD - multiple fundic gland gastric polyps; gastritis, biopsied to rule out H. pylori 09/30/2024 1:52 PM [facility] Gross Description The requisition and [...] cassette labeled A1. RB 09/30/2024 1:52 PM [facility] Pathologist Location at [facility] 09/30/2024 1:52 PM [facility] Disclaimer The performance characteristics of all immunohistochemical and indirect immunofluorescence stains (if any) cited in this report were determined by the Histopathology Laboratory of [facility]. Some of these tests were developed by [...] the attending (teaching) pathologist. 09/30/2024 1:52 PM [facility] Embedded Images 09/30/2024 1:52 PM [facility] Biopsy, NOS GASTRIC CONTENTS SPECIMEN / Unknown 09/27/2024 2:44 PM CALL SPECIALIST 09/27/2024 3:02 PM CALL SPECIALIST Comment:Pre-op diagnosis: Acute gastric ulcer, unspecified whether gastric ulcer hemorrhage or perforation present [K25.3] Terrance Moise MD LAB - PATHOLOGY/CYTO LOGY ORDERABLES [facility] [address] [place] [address], [facility] [phone] * EGD (09/27/2024 2:08 PM CALL SPECIALIST) Report Endoscopy POC Endoscopy Department Report _ Patient Name: Cole Fatima ?Procedure Date: 09/27/2024 2:08 PM ?Date of : 1940 Classification: Outpatient ?Gender: Male Ethnicity: Not or ? Race: White _ Providers: ?Terrance Moise MD, Stveen Dean (Fellow) Referring MD: ? Cheo Potts [...] Procedure Code(s): ? --- Professional --- ? [address]4214, Esophagogastroduo denoscopy, flexible, transoral; with biopsy, ? single or multiple Diagnosis Code(s): ?--- Professional --- ?K31.7, Polyp of stomach and duodenum ?K29.70, Gastritis, unspecified, without bleeding ?K25.7, Chronic gastric ulcer without hemorrhage or ?perforation CPT copyright 2021 [employer]. All rights reserved. The codes documented in this report are preliminary and upon hay buckler review may be revised to meet current compliance requirements. Terrance Moise MD 09/27/2024 3:05:15 PM Note Initiated On: 09/27/2024 2:08 PM Number of Addenda: 0 ? [facility] ? [address] [place] [address] [facility] 09/27/2024 2:08 PM CALL SPECIALIST Terrance Moise MD GI PROCEDURE ORDERAB LES [facility] from Last 3 Months Care Teams Farm Agent Relationship Specialty Start Date End Date Cheo Potts MD [address] [place] [address] PCP - General 01/07/16
--- OUTSIDE RECORDS SUMMARY | 2024-09-30 15:15 | XMS_ITS | Encounter Summary ---
Author Organization [facility] Address [address] [place] [address] Phone Care Team Providers Care Media Manager Name Role Phone Cheo Potts MD Primary Care Provider Neftaly Portillo MD Unavailable [phone] Tree Ruiz MD PhD Unavailable [phone] Katharina Mac VOCAL ARTIST Unavailable [phone] Qi Norris MD Unavailable [phone] Yuly Nieves RN Unavailable [phone] Katharina Mac VOCAL ARTIST Unavailable Tree Ruiz MD PhD Unavailable [phone] Oanh Trevizo VOCAL ARTIST Unavailable Oanh Trevizo VOCAL ARTIST Unavailable [phone] Encounter Details Date Type Department Care Team (Latest Contact Info) Description 12/20/2018 Orders Only [facility] Scanning, Provider Social History Tobacco Use Types Packs/Day Years Used Date Smoking Tobacco: Former Smokeless Tobacco: Never Alcohol Use Standard Drinks/Week Comments No 7 (1 standard drink = 0.6 oz pur e alcohol) Sex and Gender Information Value Date Recorded Sex Assigned at Not on file 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 Gender Identity Male 11/05/2020 12:05 PM PELLETISING EXTRUDER OPERATOR Sexual Orientation Not on file documented as of this encounter Plan of Treatment Not on file documented as of this encounter Procedures Procedure Name Priority Date/Time Associated Diagnosis Comments SLEEP LAB/STUDY - RESULT 12/20/2018 documented in this encounter Results * SLEEP LAB/STUDY - RESULT (12/20/2018) Provider Scanning Final Result documented in this encounter Visit Diagnoses Not on filedocumented in this encounter Care Teams Media Manager Relationship Specialty Start Date End Date Cheo Potts MD [address] [place] [address] PCP - General 01/03/17 Neftaly Portillo MD [address] [facility] [address] [facility] [address] [place] [address] Consulting Physician Cardiology 11/15/18 Tree Ruiz MD PhD [address] [facility] [address] [place] [address] Referring Physician Cardiology 12/10/20 11/20/23 Katharina Mac NP [address] [facility] [address] [place] [address] Referring Physician Cardiology 12/10/20 11/20/23 Qi Norris MD [address] [address] Referring Physician Gastroenterology 05/10/23 Yuly Nieves, RN [address] [facility] [address] [place] [address] [employer]OP Outpatient Cable Installer Repairer Helper 09/22/23 10/18/23 Katharina Mac NP [address] [facility] [address] [place] [address] Nurse Practitioner Cardiology 11/21/23 Tree Ruiz MD PhD [address] [facility] [address] [place] [address] Consulting Physician Cardiology 11/21/23 [place] [address] [facility] [address] [place] [address] Nurse Practitioner Swaging Machine Adjuster 07/18/24 [place] [address] [facility] [address] [place] [address] Nurse Practitioner Swaging Machine Adjuster 09/18/24 documented as of this encounter
--- OUTSIDE RECORDS SUMMARY | 2024-09-30 15:15 | XMS_ITS | Encounter Summary ---
Author Organization [facility] Address [address] [place] [address] Phone Care Team Providers Care Hand Collator Name Role Phone Cheo Potts MD Primary Care Provider Neftaly Portillo MD Unavailable [phone] Tree Ruiz MD PhD Unavailable [phone] Katharina Mac STAFFING COORDINATOR Unavailable Qi Norris MD Unavailable [phone] Yuly Nieves RN Unavailable Katharina Mac STAFFING COORDINATOR Unavailable [phone] Tree Ruiz MD PhD Unavailable [phone] Oanh Trevizo STAFFING COORDINATOR Unavailable Oanh Trevizo STAFFING COORDINATOR Unavailable [phone] Encounter Details Date Type Department Care Team (Latest Contact Info) Description 10/05/2022 Orders Only [facility] Berenice Olivares, RN [address] [facility] [address] [place] [address] Social History Tobacco Use Types Packs/Day Years Used Date Smoking Tobacco: Former Smokeless Tobacco: Never Alcohol Use Standard Drinks/Week Comments Yes 7 (1 standard drink = 0.6 oz pur e alcohol) PHQ-2 Answer Date Recorded PHQ-2 Total Score (If total score is 3 or more points, staff should administer the PHQ-9) 2 09/13/2022 Sex and Gender Information Value Date Recorded Sex Assigned at Not on file 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 Gender Identity Male 11/05/2020 12:05 PM FORMING MACHINE ADJUSTER Sexual Orientation Not on file documented as of this encounter Plan of Treatment Not on file documented as of this encounter Procedures Procedure Name Priority Date/Time Associated Diagnosis Comments SCAN - LABS 10/05/2022 documented in this encounter Results * SCAN - LABS (10/05/2022) us Berenice Olivares RN Final Result documented in this encounter Visit Diagnoses Not on filedocumented in this encounter Care Teams Hand Collator Relationship Specialty Start Date End Date Cheo Potts MD [address] [place] [address] PCP - General 01/03/17 Neftaly Portillo MD [address] [facility] [address] [place] [address] Consulting Physician Cardiology 11/15/18 Tree Ruiz MD PhD [address] [facility] [address] [place] [address] Referring Physician Cardiology 12/10/20 11/20/23 Katharina Mac NP [address] [facility] [address] [place] [address] Referring Physician Cardiology 12/10/20 11/20/23 Qi Norris MD 2 [facility] [address] [place] [address] Referring Physician Gastroenterology 05/10/23 Yuly Nieves RN [address] [address] [facility] Outpatient Artificial Intelligence Specialist 09/22/23 10/18/23 Katharina Mac, [place] [address] [address] Nurse Practitioner Cardiology 11/21/23 Tree Ruiz MD PhD [facility] [facility] [address] [place] [address] Consulting Physician Cardiology 11/21/23 [place] [address] [address] Nurse Practitioner Boots And Shoes Supervisor 07/18/24 [place] [address] [address] Nurse Practitioner Boots And Shoes Supervisor 09/18/24 documented as of this encounter
--- OUTSIDE RECORDS SUMMARY | 2024-09-30 15:15 | XMS_ITS | Encounter Summary ---
Author Organization [facility] Address [address] [place] [address] Phone Care Team Providers Care Community Education Coordinator Name Role Phone Cheo Potts MD Primary Care Provider Neftaly Portillo MD Unavailable [phone] Tree Ruiz MD PhD Unavailable [phone] Katharina Mac SPECIAL EVENTS PLANNER Unavailable [phone] Qi Norris MD Unavailable [phone] Yuly Nieves RN Unavailable Katharina Mac SPECIAL EVENTS PLANNER Unavailable Tree Ruiz MD PhD Unavailable [phone] Oanh Trevizo SPECIAL EVENTS PLANNER Unavailable Oanh Trevizo SPECIAL EVENTS PLANNER Unavailable Encounter Details Date Type Department Care Team (Latest Contact Info) Description 01/25/2023 Orders Only [facility] Berenice Olivares, RN [address] [facility] [address] [place] [address] Social History Tobacco Use Types [...] on file Legal Sex Male 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 Gender Identity Male 11/05/2020 12:05 PM YARD SPECIALIST Sexual Orientation Not on file documented as of this encounter Plan of Treatment Not on file documented as of this encounter Procedures Procedure Name Priority Date/Time Associated Diagnosis Comments SCAN - LABS 01/25/2023 documented in this encounter Results * SCAN - LABS (01/25/2023) us Berenice Olivares RN Final Result documented in this encounter Visit Diagnoses Not on filedocumented in this encounter Care Teams Community Education Coordinator Relationship Specialty Start Date End Date Cheo Potts MD [address] [place] [address] PCP - General 01/03/17 Neftaly Portillo MD [address] [facility] [address] [place] [address] Consulting Physician Cardiology 11/15/18 Tree Ruiz MD PhD [address] [facility] [address] [place] [address] Referring Physician Cardiology 12/10/20 11/20/23 Katharina Mac NP [address] [facility] [address] [place] [address] Referring Physician Cardiology 12/10/20 11/20/23 Qi Norris MD 2 [facility] [address] [place] [address] Referring Physician Gastroenterology 05/10/23 Yuly Nieves RN [address] [address] [facility] Outpatient Treadle Cut Off Saw Operator 09/22/23 10/18/23 Katharina Mac, [place] [address] [address] Nurse Practitioner Cardiology 11/21/23 Tree Ruiz MD PhD [facility] [address] [place] [address] Consulting Physician Cardiology 11/21/23 [place] [address] [address] Nurse Practitioner Fishing Vessel Mate 07/18/24 [place] [address] [address] Nurse Practitioner Fishing Vessel Mate 09/18/24 documented as of this encounter
== END 2024-09-30 14:19 | disposition home or self-care (01) ==
PROVIDERS: PCP Family Medicine
DX: Q61.2 Polycystic kidney, adult type (principal); R10.11 Right upper quadrant pain
CPT/HCPCS: 74177; Q9967

== ENCOUNTER 2024-11-11 12:10 | Outpatient (CLI) | payer MEDICARE, SELFPAY ==
[2024-11-11 12:45] LABS: Alanine Aminotransferase 20 U/L (6-50); Albumin Level 4.1 g/dL (3.5-5.1); Alkaline Phosphatase 52 U/L (38-126); Anion Gap 5 mmol/L (4-12); Aspartate Amino Transferase 30 U/L (17-59); Bilirubin,Total 0.5 mg/dL (0.2-1.3); Blood Urea Nitrogen 11 mg/dL (9-20); Calcium 9.1 mg/dL (8.4-10.2); Carbon Dioxide 30 mmol/L (22-30); Chloride 97 mmol/L (98-107); Estimated Glomerular Filt Rate > 60; Glucose 106 mg/dL (65-110); Sodium 132 mmol/L (137-145)
--- OUTSIDE RECORDS SUMMARY | 2024-11-11 14:03 | XMS_ITS | Patient Health Summary ---
Author Organization [facility] Address [address] [place] [address] Care Team Providers Care [employer] Consultant Name Role Phone Cheo Potts MD Primary Care Provider [phone] Note from [facility],non-owned Affiliates and Associated Physician Practices is amultiple site organization consisting of ambulatory clinics and hospital sitesin [place], [place], [place] and [place]. This disclosure is being madepursuant to the Care Everywhere program and may not contain all information available regarding this patient. Last updated 18.[facility] Allergies * Ciprofloxacin(Other) -Low Criticality * Latex(Itching) [...] azelastine (Astelin) 0.1 % nasal spray(Started 09/03/2024) Quanah 2 (two) sprays into each nostril once [...] Comments Blood Pressure 128/81 09/27/2024 3:15 PM SIZE STAMPER Pulse 61 09/27/2024 3:15 PM SIZE STAMPER Temperature 36.3 C (97.3 F) 09/27/2024 2:56 PM SIZE STAMPER Respiratory Rate 11 09/27/2024 3:15 PM SIZE STAMPER Oxygen Saturation 93% 09/27/2024 3:15 PM SIZE STAMPER Inhaled Oxygen Concentration - - Weight 80.7 kg (178 lb) 09/27/2024 1:14 PM SIZE STAMPER Height 172.7 cm (5' 8 ) 09/27/2024 1:14 PM SIZE STAMPER Body Mass Index 27.06 09/27/2024 1:14 PM SIZE STAMPER Procedures * PATHOLOGY TISSUE(Performed 09/27/2024) Performed for Acute gastric ulcer, unspecified whether gastric ulcer hemorrhage or perforation present * [facility] ED EGD FLEX TRANSORAL DX(Performed 09/27/2024) Performed for Acute gastric ulcer, unspecified whether gastric ulcer hemorrhage or perforation present * EGD(Performed 09/27/2024) Results * PATHOLOGY TISSUE (09/27/2024 2:44 PM SIZE STAMPER) Case Report Surgical Pathology Report Case: [id number] Authorizing Provider: Terrance Moise MD Collected: 09/27/2024 02:44 PM Ordering Location: [facility] Received: 09/27/2024 03:02 PM Pathologist: Rhona Cedeño MD Specimen: Gastric, Gastric Biopsy r/o H-Pylori 09/30/2024 1:52 PM [facility] Final Diagnosis Stomach, biopsy (A): - No histopathologic abnormality - No active inflammation or H. pylori organisms (H&E examination) 09/30/2024 1:52 PM [facility] Microscopic Description and Comment Microscopic examination substantiates the final diagnosis. 09/30/2024 1:52 PM [facility] Clinical History The patient is 84-year-old man who presents for follow-up of gastric ulcer. Operative procedure/findings: EGD - multiple fundic gland gastric polyps; gastritis, biopsied to rule out H. pylori 09/30/2024 1:52 PM [facility] Gross Description The requisition [...] cassette labeled A1. RB 09/30/2024 1:52 PM [facility] Pathologist Location at [facility] 09/30/2024 1:52 PM [facility] Disclaimer The performance characteristics of all immunohistochemical and indirect immunofluorescence stains (if any) cited in this report were determined by the Histopathology Laboratory of [facility]. Some of these tests were [...] the attending (teaching) pathologist. 09/30/2024 1:52 PM SIZE STAMPER [facility] Embedded Images 09/30/2024 1:52 PM SIZE STAMPER [facility] Biopsy, NOS GASTRIC CONTENTS SPECIMEN / Unknown 09/27/2024 2:44 PM SIZE STAMPER 09/27/2024 3:02 PM SIZE STAMPER Comment:Pre-op diagnosis: Acute gastric ulcer, unspecified whether gastric ulcer hemorrhage or perforation present [K25.3] Terrance Moise MD LAB - PATHOLOGY/CYTO LOGY ORDERABLES Performing Organization Address City/State/[facility] Phone Number [facility] [address] [phone] * EGD (09/27/2024 2:08 PM SIZE STAMPER) Report Endoscopy POC Endoscopy Department Report _ Patient Name: Cole Fatima Procedure Date: 09/27/2024 2:08 PM Date of : 1940 Classification: Outpatient Gender: Male Ethnicity: Not or Race: White _ Providers: Terrance Moise MD, Steven Dean (Fellow) Referring MD: Cheo Potts (Referring MD) Procedure: Upper GI endoscopy Indications: Follow-up of chronic gastric ulcer Medications: Monitored Anesthesia Care Patient Profile: This is an 84 year old male. Description of Procedure: Pre-Anesthesia Assessment: - Prior to the procedure, a History and Physical was performed, and patient medications and allergies were reviewed. The patient's tolerance of previous anesthesia was also reviewed. The risks and benefits of the procedure and the sedation options and risks were discussed with the patient. All questions were answered, and informed consent was obtained. Prior Anticoagulants: The patient has taken no anticoagulant or antiplatelet agents. ASA Grade Assessment: II - A patient with mild systemic disease. After reviewing the risks and benefits, the patient was deemed in satisfactory condition to undergo the procedure. After obtaining informed consent, the endoscope was passed under direct vision. Throughout the procedure, the patient's blood pressure, pulse, and oxygen saturations were monitored continuously. The Endoscope was introduced through the mouth, and advanced to the second part of duodenum. The upper GI endoscopy was accomplished without difficulty. The patient tolerated the procedure well. Findings: The examined esophagus was normal. Multiple fundic gland polyps with no bleeding were found in the entire examined stomach. Localized mild inflammation characterized by erythema was found in the gastric body. Biopsies were taken with a cold forceps for Helicobacter pylori testing. The cardia and gastric fundus were normal on retroflexion. The examined duodenum was normal. Estimated Blood Loss: Estimated blood loss: none. Complications: No immediate complications. Impression: - Normal esophagus. - Multiple fundic gland gastric polyps. - Gastritis. Biopsied. - Normal examined duodenum. Recommendation: - Discharge patient to home. - Resume previous diet. - Continue present medications. - Await pathology results. Attending Participation: I was present and participated during the entire procedure, including non-ivory portions. Procedure Code(s): --- Professional --- 01058, Esophagogastroduo denoscopy, flexible, transoral; with biopsy, single or multiple Diagnosis Code(s): --- Professional --- K31.7, Polyp of stomach and duodenum K29.70, Gastritis, unspecified, without bleeding K25.7, Chronic gastric ulcer without hemorrhage or perforation CPT copyright 2021 [employer]. All rights reserved. The codes documented in this report are preliminary and upon land surveyor assistant review may be revised to meet current compliance requirements. Terrance Moise MD 09/27/2024 3:05:15 PM Note Initiated On: 09/27/2024 2:08 PM Number of Addenda: [address] [phone] [facility] 09/27/2024 2:08 PM SIZE STAMPER Terrance Moise MD GI PROCEDURE ORDERAB [facility] Care Teams [employer] Consultant Relationship Specialty Start Date End Date Cheo Potts MD [address] [place] [address] PCP - General 01/07/16
--- OUTSIDE RECORDS SUMMARY | 2024-11-11 14:03 | XMS_ITS | Referral Summary ---
Author Organization [facility] Address [address] [facility] [place] [address] Care Team Providers Care Chief Legal Officer Name Role Phone Cheo Potts MD Primary Care Provider [phone] Source Comments [facility],non-owned Affiliates and Associated Physician Practices is amultiple site organization consisting of ambulatory clinics and hospital sitesin [place], [place], [place] and [place]. This disclosure is being madepursuant to the Care Everywhere program and may not contain all information available regarding this patient. Last updated 18.[facility] Encounters Date Type Department Care Team Description 09/27/2024 Travel 09/27/2024 2:36 PM CLIENT SERVICE PROFESSIONAL Anesthesia Event [facility] [address] [place] [phone] Cassy Almanza MD Schlarman, Nicholas C, MD 09/27/2024 1:45 PM CLIENT SERVICE PROFESSIONAL - 09/27/2024 2:15 PM CLIENT SERVICE PROFESSIONAL Surgery [facility] [address] [place] [address] Terrance Moise MD EGD 09/27/2024 12:46 PM CLIENT SERVICE PROFESSIONAL - 09/27/2024 3:34 PM CLIENT SERVICE PROFESSIONAL Hospital Encounter [facility] [address] [place] [address] Terrance Moise MD Surgery General Discharge Disposition: Home or Self Care 09/25/2024 Telephone [facility] - GI [address] [facility] [place] [phone] Emy Acosta, RN Appointment 09/25/2024 Patient Outreach [facility] [address] [place] [address] Gerri Whitman RN 09/19/2024 Patient Outreach [facility] [address] [place] [address] Gerri Whitman RN 09/17/2024 Refill [facility] - GI [address] [place] [address] Manish Calloway MD MEDICATION REFILL 09/17/2024 Travel 09/17/2024 1:00 PM CLIENT SERVICE PROFESSIONAL Office Visit [facility] - [address] [address] Manish Calloway MD Right upper quadrant abdominal [...] (one) tablet by mouth at bedtime 08/19/2024 08/19/2025 Active azelastine (Astelin) 0.1 % nasal spray [place] 2 (two) sprays into each nostril once daily 09/03/2024 Active busPIRone (Buspar) 15 MG tablet Take 0.5 (one-half) tablet by mouth 2 times daily 11/17/2023 Active Coenzyme Q10 10 MG Take 200 mg by mouth once daily Active dapagliflozin propanediol (Farxiga) 10 MG tablet Take 1 (one) tablet by mouth once daily 09/19/2023 09/11/2025 Active finasteride (Proscar) 5 MG tablet Take 1 (one) tablet by mouth once daily Active Anucort-HC 25 MG suppository Insert 1 (one) suppository into the rectum 2 times daily as needed 03/11/2024 Active polyethylene glycol 3350 (Miralax) 17 g packet Take 17 (seventeen) g by mouth at bedtime Active sacubitril-valsart an (Entresto) 24-26 MG tablet Take 1 (one) tablet by mouth 2 times daily 08/23/2024 Active sotalol (Betapace) 120 MG tablet Take 1 (one) tablet by mouth 2 times daily 04/03/2024 Active spironolactone (Aldactone) 25 MG tablet Take 1 (one) tablet by mouth once daily 10/17/2023 Active traMADol (Ultram) 50 MG tablet Take 1 (one) tablet by mouth 3 times daily as needed 08/26/2024 Active omeprazole (PriLOSEC) 40 MG capsule Take 1 (one) capsule by mouth 2 times daily, 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 and supper 120 capsule 2 09/17/2024 Active Active Problems Problem Noted Date Diagnosed [...] Comments Blood Pressure 128/81 09/27/2024 3:15 PM CLIENT SERVICE PROFESSIONAL Pulse 61 09/27/2024 3:15 PM CLIENT SERVICE PROFESSIONAL Temperature 36.3 C (97.3 F) 09/27/2024 2:56 PM CLIENT SERVICE PROFESSIONAL Respiratory Rate 11 09/27/2024 3:15 PM CLIENT SERVICE PROFESSIONAL Oxygen Saturation 93% 09/27/2024 3:15 PM CLIENT SERVICE PROFESSIONAL Inhaled Oxygen Concentration - - Weight 80.7 kg (178 lb) 09/27/2024 1:14 PM CLIENT SERVICE PROFESSIONAL Height 172.7 cm (5' 8 ) 09/27/2024 1:14 PM CLIENT SERVICE PROFESSIONAL Body Mass Index 27.06 09/27/2024 1:14 PM CLIENT SERVICE PROFESSIONAL Functional Status Functional Status Response Date of [...] Description 12/17/2024 12:30 PM CDT Office Visit [facility] - GI [address] [facility] [place] [phone] Manish Calloway MD [address] [address] Goals Goal Patient Goal Type Associated Problems Recent Progress Patient-Stated? Author Medication Management General No Berenice Preciado RN Procedures Procedure Name Priority Date/Time Associated Diagnosis Comments PATHOLOGY TISSUE Routine 09/27/2024 2:44 PM CLIENT SERVICE PROFESSIONAL Acute gastric ulcer, unspecified whether gastric ulcer hemorrhage or perforation present [place] ED EGD FLEX TRANSORAL DX 09/27/2024 2:31 PM CLIENT SERVICE PROFESSIONAL Acute gastric ulcer, unspecified whether gastric ulcer hemorrhage or perforation present Special Needs EGD Received: Today Berenice Preciado, CLARISSA Whitman, Gerri Rangel RN Good Morning, I am the new nurse for Dr. Calloway. Can you please schedule this pt for an EGD. Thanks Received Date Received Time Sep 18, 2024 9:13 AM EGD Routine 09/27/2024 2:08 PM CLIENT SERVICE PROFESSIONAL from Last 3 Months Results * PATHOLOGY TISSUE (09/27/2024 2:44 PM CLIENT SERVICE PROFESSIONAL) Case Report Surgical Pathology Report Case: [id number] Authorizing Provider: Terrance Moise MD Collected: 09/27/2024 02:44 PM Ordering Location: [facility] Received: 09/27/2024 03:02 PM Pathologist: Rhona Cedeño MD Specimen: Gastric, Gastric Biopsy r/o H-Pylori 09/30/2024 1:52 PM CLIENT SERVICE PROFESSIONAL [facility] Final Diagnosis Stomach, biopsy (A): - No histopathologic abnormality - No active inflammation or H. pylori organisms (H&E examination) 09/30/2024 1:52 PM [facility] Microscopic Description and Comment Microscopic examination substantiates the final diagnosis. 09/30/2024 1:52 PM [facility] Clinical History The patient is 84-year-old man who presents for follow-up of gastric ulcer. Operative procedure/findings: EGD - multiple fundic gland gastric polyps; gastritis, biopsied to rule out H. pylori 09/30/2024 1:52 PM [facility] Gross Description The requisition and [...] cassette labeled A1. RB 09/30/2024 1:52 PM [facility] Pathologist Location at [facility] 09/30/2024 1:52 PM [facility] Disclaimer The performance characteristics of all immunohistochemical and indirect immunofluorescence stains (if any) cited in this report were determined by the Histopathology Laboratory of [facility]. Some of these tests [...] the attending (teaching) pathologist. 09/30/2024 1:52 PM [facility] Embedded Images 09/30/2024 1:52 PM [facility] Biopsy, NOS GASTRIC CONTENTS SPECIMEN / Unknown 09/27/2024 2:44 PM CLIENT SERVICE PROFESSIONAL 09/27/2024 3:02 PM CLIENT SERVICE PROFESSIONAL Comment:Pre-op diagnosis: Acute gastric ulcer, unspecified whether gastric ulcer hemorrhage or perforation present [K25.3] Terrance Moise MD LAB - PATHOLOGY/CYTO LOGY ORDERABLES [facility] [address] [place], [place] [address] [phone] * EGD (09/27/2024 2:08 PM CLIENT SERVICE PROFESSIONAL) Report Endoscopy POC Endoscopy Department Report _ [...] non-ivory portions. Procedure Code(s): --- Professional --- 38462, Esophagogastroduo denoscopy, flexible, transoral; with biopsy, single or multiple Diagnosis Code(s): --- Professional --- K31.7, Polyp of stomach and duodenum K29.70, Gastritis, unspecified, without bleeding K25.7, Chronic gastric ulcer without hemorrhage or perforation CPT copyright 2021 [employer]. All rights reserved. The codes documented in this report are preliminary and upon polishing machine operator review may be revised to meet current compliance requirements. Terrance Moise MD 09/27/2024 3:05:15 PM Note Initiated On: 09/27/2024 2:08 PM Number of Addenda: [id number] [place] [address] PROVATION 09/27/2024 2:08 PM CLIENT SERVICE PROFESSIONAL Terrance Moise MD GI PROCEDURE ORDERAB LES Performing Organization Address City/State/[facility] Co de Phone Number [facility] from Last 3 Months Care Teams Chief Legal Officer Relationship Specialty Start Date End Date Cheo Potts MD [address] [place] [address] PCP - General 01/07/16
--- OUTSIDE RECORDS SUMMARY | 2024-11-11 14:03 | XMS_ITS | Clinical Summary ---
Author Organization [facility] Address [address] [place] [address] Care Team Providers Care Bending Roll Operator Name Role Phone Cheo Potts MD Primary Care Provider [phone] Source Comments [facility],non-owned Affiliates and Associated Physician Practices is amultiple site organization consisting of ambulatory clinics and hospital sitesin [place], [place], [place] and [place]. This disclosure is being madepursuant to the Care Everywhere program and may not contain all information available regarding this patient. Last updated 18.[facility] Allergies Active Allergy Reactions Criticality Noted Date [...] Active azelastine (Astelin) 0.1 % nasal spray [place] 2 (two) sprays into each nostril once [...] Department Care Team Description 09/27/2024 2:36 PM RN ANGIOGRAPHY Anesthesia Event [facility] [address] [place] [phone] Cassy Almanza MD Schlarman, Nicholas C, MD 09/27/2024 1:45 PM RN ANGIOGRAPHY - 09/27/2024 2:15 PM RN ANGIOGRAPHY Surgery [facility] [address] [place] [phone] Terrance Moise MD EGD 09/27/2024 12:46 PM RN ANGIOGRAPHY - 09/27/2024 3:34 PM RN ANGIOGRAPHY Hospital Encounter [facility] [address] [place] [phone] Terrance Moise MD Surgery General Discharge Disposition: Home or Self Care 09/27/2024 Travel 09/25/2024 Telephone [facility] - GI [address] [facility] [place] [phone] Emy Acosta, RN Appointment 09/25/2024 Patient Outreach [facility] [address] [place] [address] Gerri Whitman, RN 09/19/2024 Patient Outreach [facility] [address] [place] [address] Gerri Whitman RN 09/17/2024 1:00 PM RN ANGIOGRAPHY Office Visit [facility] - GI [address] [place] [address] Manish Calloway MD Right upper quadrant abdominal pain (Primary Dx); Acute gastric ulcer, unspecified whether gastric ulcer hemorrhage or perforation present 09/17/2024 Refill [facility] - GI [address] [place] [address] Manish Calloway MD MEDICATION REFILL 09/17/2024 Travel [...] Comments Blood Pressure 128/81 09/27/2024 3:15 PM RN ANGIOGRAPHY Pulse 61 09/27/2024 3:15 PM RN ANGIOGRAPHY Temperature 36.3 C (97.3 F) 09/27/2024 2:56 PM RN ANGIOGRAPHY Respiratory Rate 11 09/27/2024 3:15 PM RN ANGIOGRAPHY Oxygen Saturation 93% 09/27/2024 3:15 PM RN ANGIOGRAPHY Inhaled Oxygen Concentration - - Weight 80.7 kg (178 lb) 09/27/2024 1:14 PM RN ANGIOGRAPHY Height 172.7 cm (5' 8 ) 09/27/2024 1:14 PM RN ANGIOGRAPHY Body Mass Index 27.06 09/27/2024 1:14 PM RN ANGIOGRAPHY Plan of Treatment Upcoming Encounters Date Type Department Care Team (Late st Contact Info) Description 12/17/2024 12:30 PM CDT Office Visit [facility] - [address] [address] Manish Calloway MD [address] [address] Health Maintenance Due Date Last Done Comments MEDICARE AWV 12 MONTHS 1940 DTAP/TDAP/TD VACCINES (1 - [...] Comments PATHOLOGY TISSUE Routine 09/27/2024 2:44 PM RN ANGIOGRAPHY Acute gastric ulcer, unspecified whether gastric ulcer hemorrhage or perforation present SD ED EGD FLEX TRANSORAL DX 09/27/2024 2:31 PM RN ANGIOGRAPHY Acute gastric ulcer, unspecified whether gastric ulcer hemorrhage or perforation present Special Needs EGD Received: Today Berenice Preciado RN Johnson, Sarah N., RN Good Morning, I am the new nurse for Dr. Calloway. Can you please schedule this pt for an EGD. Thanks Received Date Received Time Sep 18, 2024 9:13 AM EGD Routine 09/27/2024 2:08 PM RN ANGIOGRAPHY from Last 3 Months Results * PATHOLOGY TISSUE (09/27/2024 2:44 PM RN ANGIOGRAPHY) Case Report Surgical Pathology Report Case: [id number] Authorizing Provider: Terrance Moise MD Collected: 09/27/2024 02:44 PM Ordering Location: [facility] Received: 09/27/2024 03:02 PM Pathologist: Rhona Cedeño MD Specimen: Gastric, Gastric Biopsy r/o H-Pylori 09/30/2024 1:52 PM [facility] Final Diagnosis Stomach, biopsy (A): - No histopathologic abnormality - No active inflammation or H. pylori organisms (H&E examination) 09/30/2024 1:52 PM [facility] Microscopic Description and Comment Microscopic examination substantiates the final diagnosis. 09/30/2024 1:52 PM [facility] Clinical History The patient is 84-year-old man who presents for follow-up of gastric ulcer. Operative procedure/findings: EGD - multiple fundic gland gastric polyps; gastritis, biopsied to rule out H. pylori 09/30/2024 1:52 PM [facility] Gross Description The requisition [...] cassette labeled A1. RB 09/30/2024 1:52 PM [facility] Pathologist Location at [facility] 09/30/2024 1:52 PM [facility] Disclaimer The performance characteristics of all immunohistochemical and indirect immunofluorescence stains (if any) cited in this report were determined by the Histopathology Laboratory of [facility]. Some of these tests were developed by [...] the attending (teaching) pathologist. 09/30/2024 1:52 PM RN ANGIOGRAPHY [facility] Embedded Images 09/30/2024 1:52 PM RN ANGIOGRAPHY [facility] Biopsy, NOS GASTRIC CONTENTS SPECIMEN / Unknown 09/27/2024 2:44 PM RN ANGIOGRAPHY 09/27/2024 3:02 PM RN ANGIOGRAPHY Comment:Pre-op diagnosis: Acute gastric ulcer, unspecified whether gastric ulcer hemorrhage or perforation present [K25.3] Terrance Moise MD LAB - PATHOLOGY/CYTO LOGY ORDERABLES Performing Organization Address City/State/[facility] Co de Phone Number [facility] [address] [phone] * EGD (09/27/2024 2:08 PM RN ANGIOGRAPHY) Report Endoscopy POC Endoscopy Department Report _ [...] non-ivory portions. Procedure Code(s): --- Professional --- 64577, Esophagogastroduo denoscopy, flexible, transoral; with biopsy, single or multiple Diagnosis Code(s): --- Professional --- K31.7, Polyp of stomach and duodenum K29.70, Gastritis, unspecified, without bleeding K25.7, Chronic gastric ulcer without hemorrhage or perforation CPT copyright 2021 [employer]. All rights reserved. The codes documented in this report are preliminary and upon remote inpatient coder review may be revised to meet current compliance requirements. Terrance Moise MD 09/27/2024 3:05:15 PM Note Initiated On: 09/27/2024 2:08 PM Number of Addenda: 0 [facility] [address] [place] [address] [facility] PROVATION 09/27/2024 2:08 PM RN ANGIOGRAPHY Terrance Moise MD GI PROCEDURE ORDERAB LES [facility] PROVATION from Last 3 Months Care Teams Bending Roll Operator Relationship Specialty Start Date End Date Cheo Potts MD [address] [place] [address] PCP - General 01/07/16
--- OUTSIDE RECORDS SUMMARY | 2024-11-11 14:04 | XMS_ITS | Encounter Summary ---
Author Organization [facility] Address [address] [place] [address] Phone Care Team Providers Care Reel Worker Name Role Phone Cheo Potts MD Primary Care Provider Neftaly Portillo MD Unavailable [phone] Tree Ruiz MD PhD Unavailable [phone] Katharina Mac VOICER Unavailable Qi Norris MD Unavailable [phone] Yuly Nieves RN Unavailable [phone] Katharina Mac VOICER Unavailable Tree Ruiz MD PhD Unavailable [phone] Oanh Trevizo VOICER Unavailable Oanh Trevizo VOICER Unavailable Encounter Details Date Type Department Care Team (Latest Contact Info) Description 01/25/2023 Orders Only [facility] Berenice Olivares, RN [address] [facility] [address] [place] [address] Social History Tobacco Use Types [...] on file 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 Gender Identity Male 11/05/2020 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 Sexual Orientation Not on file documented as of this encounter Plan of Treatment Not on file documented as of this encounter Procedures Procedure Name Priority Date/Time Associated Diagnosis Comments SCAN - LABS 01/25/2023 documented in this encounter Results * SCAN - LABS (01/25/2023) us Berenice Olivares RN Final Result documented in this encounter Visit Diagnoses Not on filedocumented in this encounter Care Teams Reel Worker Relationship Specialty Start Date End Date Cheo Potts MD [address] [place] [address] PCP - General 01/03/17 Neftaly Portillo MD [address] [facility] [address] [place] [address] Consulting Physician Cardiology 11/15/18 Tree Ruiz MD PhD [address] [facility] [address] [place] [address] Referring Physician Cardiology 12/10/20 11/20/23 Katharina Mac NP [address] [facility] [address] [place] [address] Referring Physician Cardiology 12/10/20 11/20/23 Qi Norris MD [address] [facility] [address] [place] [address] Referring Physician Gastroenterology 05/10/23 Yuly Nieves RN [address] [address] [facility] Outpatient Book Illustrator 09/22/23 10/18/23 Katharina Mac, [place] [address] [address] Nurse Practitioner Cardiology 11/21/23 Tree Ruiz MD PhD [facility] [facility] [address] [place] [address] Consulting Physician Cardiology 11/21/23 [place] [address] [address] Nurse Practitioner Flue Dust Laborer 07/18/24 [place] [address] [address] Nurse Practitioner Flue Dust Laborer 09/18/24 documented as of this encounter
--- OUTSIDE RECORDS SUMMARY | 2024-11-11 14:04 | XMS_ITS | Encounter Summary ---
Author Organization [facility] Address [address] [place] [address] Phone Care Team Providers Care Press Writer Name Role Phone Cheo Potts MD Primary Care Provider Marques Barksdale DO Unavailable [phone] Barbara Warner APRN, PE MANAGER Unavailable Qi Norris MD Unavailable [phone] Reason for Visit * Reason Comments Medication Refill Encounter Details Date Type Department Care Team (Late st Contact Info) Description 08/23/2024 Refill [facility] - Gastroenterology [facility] [address] [place] [phone] Barbara Warner APRN, PE MANAGER [address] [place] [address] Medication Refill Social History Tobacco Use Types [...] Oanh Recinos RN - 08/23/2024 1:57 PM DRUGLESS PHYSICIAN Medication refilled and signed per [facility] chronic medication standing order for pediatric and adult patients. LESS PHYSICIAN documented in this encounter Plan of Treatment Not on file documented as of this encounter Visit Diagnoses Diagnosis Gastroesophageal reflux disease, unspecified whether esophagitis present documented in this encounter Care Teams Press Writer Relationship Specialty Start Date End Date Cheo Potts MD [address] [place] [address] [address] [place] [address] PCP - General Family Medicine 11/09/15 Marques Barksdale DO [address] [place] [address] [address] [place] [address] Gastroenterology 11/12/15 Barbara Warner APRN, PE MANAGER [address] [place] [address] Nurse Practitioner Advanced Practice Nurse 10/24/22 Qi Norris MD [address] [place] [address] Consulting Physician Gastroenterology 05/12/22 documented as of this encounter
--- OUTSIDE RECORDS SUMMARY | 2024-11-11 14:04 | XMS_ITS | Clinical Summary ---
Author Organization [facility] Address [address] [place] [address] Care Team Providers Care Agriculture Sales Account Manager Name Role Phone Cheo Potts MD Primary Care Provider Marty Torres MD Unavailable [phone] Qi Norris MD Unavailable [phone] Katharina Mac SHOE CUTTER Unavailable [phone] Tree Ruiz MD PhD Unavailable [phone] Oanh Trevizo SHOE CUTTER Unavailable [phone] Oanh Trevizo SHOE CUTTER Unavailable [phone] Allergies Active Allergy Reactions Criticality Noted Date Comments Celecoxib Other (See comments) Low Altered depth perception Ciprofloxacin Muscle pain,Other (S ee comments) Medium 12/06/2017 Muscle weakness FEELS BAD Latex Rash,Itching Medium 04/11/2017 Medications calcium carbonate-vitami n D3 1,500 mg (600mg elemental) -800 unit per tabletIndication s:Hypocalcemia Prevention,Preve ntion of Vitamin D Deficiency 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 mouth private investigator 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 Active coenzyme Q10 200 mg capsuleIndicatio ns:supplement Take 1 capsule (200 mg total) by mouth nightly Active magnesium oxide 200 mg tablet,chewableI ndications:suppl ement Take 200 mg by mouth private investigator 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 Active polyethylene glycol (MIRALAX) 17 gram packetIndication s:constipation Take 1 packet (17 g total) by mouth nightly Active multivitamin no.44-vit D3-K 1,000-800 unit-mcg capsuleIndicatio ns:Mineral Deficiency Prevention,Vitam in Deficiency Prevention 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 mouth private investigator 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 Active busPIRone (BUSPAR) 15 mg tabletIndication s:Generalized Anxiety Disorder Take 5 mg by mouth 2 (two) times a day 05/20/20 20 Active azelastine (ASTELIN) 137 mcg (0.1 %) nasal sprayIndications :Seasonal Allergic Rhinitis Administer 2 sprays into each nostril nightly 09/17/19 21 Active fluocinolone in oil (DermOtic) 0.01 % dropsIndications :ear inflammation Administer 5 drops into each ear daily as needed (ear inflammation) 03/10/20 21 Active prochlorperazine (COMPAZINE) 10 mg tabletIndication s:Nausea and Vomiting Take 1 tablet (10 mg total) by mouth every 6 (six) hours as needed for nausea or vomiting for nausea 05/05/20 22 Active finasteride (PROSCAR) 5 mg tabletIndication s:benign prostatic hyperplasia with lower urinary tract sx Take 1 tablet (5 mg total) by mouth private investigator 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 06/16/20 22 Active sucralfate (CARAFATE) 1 gram tabletIndication s:Maintenance of Healing Gastric Ulcer Take 1 tablet (1 g total) by mouth 3 (three) times a day 02/10/20 23 Active apixaban (ELIQUIS) 5 mg tablet Take 1 tablet (5 mg total) by mouth 2 (two) times a day 180 tablet 1 05/22/20 23 Active cholecalciferol 400 unit capsuleIndicatio ns:supplement Take 200 Units by mouth every other day Active loratadine 10 mg capsuleIndicatio ns:Allergic Rhinitis Take 10 mg by mouth every [...] mouth daily 30 tablet 11 10/17/19 24 Active Additional Information Patient taking differently:25 mg oral Daily,Taking half of pill right now 12.5 daily, Reported on 10/30/2024 Anucort-HC 25 mg suppository as needed 03/11/20 24 Active atorvastatin (LIPITOR) 20 mg tablet Take 1 tablet (20 mg total) by mouth nightly 90 tablet 3 08/19/20 24 025 Active sacubitriL-valsa rtan (ENTRESTO) 24-26 mg tabletIndication s:chronic heart failure 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 mouth 2 (two) times a day 28 tablet 08/23/20 24 Active dapagliflozin propanediol (FARXIGA) 10 mg tablet Take 1 tablet (10 mg total) by mouth daily 90 tablet 3 09/11/19 25 026 Active turmeric root extract 500 mg capsule Take by mouth Active omeprazole (PriLOSEC) 40 mg capsule Take 1 capsule (40 mg total) by mouth daily 09/17/19 25 Active traMADoL (ULTRAM) 50 mg tabletIndication s:Lumbar radiculopathy,DD D (degenerative disc disease), lumbar,Lumbar stenosis with neurogenic claudication Take 1 tablet (50 mg total) by mouth 3 (three) times a day as needed for pain 90 tablet 09/25/19 25 Active gabapentin (NEURONTIN) 100 mg capsuleIndicatio ns:Restless Legs Syndrome Take 1 capsule (100 mg total) by mouth 3 (three) times a day 90 capsule 11 09/25/19 25 026 Active busPIRone (BUSPAR) 5 mg tablet Take 1 tablet (5 mg total) by mouth 2 (two) times a day 08/07/20 24 Active sotaloL (BETAPACE) 120 mg tablet Take 1 tablet (120 mg total) by mouth 2 (two) times a day 180 tablet 3 10/30/19 25 026 Active sotaloL (BETAPACE) 120 mg tablet TAKE 1 TABLET(120 MG) BY MOUTH TWICE DAILY 180 tablet 09/29/19 25 025 Discontin ued(Reord er) Active Problems Problem Noted Date Diagnosed Date Neck pain, chronic 02/07/2024 Presence of Watchman left atrial appendage closu re device 09/20/2023 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 06/13/2023 GI bleeding 02/08/2023 Lumbar facet arthropathy 09/20/2022 watermaster current use of anticoagulant 3 Lumbar radiculopathy 09/13/2022 Chronic midline low back pain without sciatica 0 09/13/2022 DDD (degenerative disc disease), lumbar 09/13/19 23 Sacroiliitis 09/13/2022 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 Chronic idiopathic constipation 07/16/2021 Hepatomegaly 07/16/2021 History of alcohol abuse 07/16/2021 PAD (peripheral artery disease) 02/26/2019 Coronary artery disease invo lving yocha dehe coronary artery of yocha dehe heart without angina pectoris 01/30/2019 Overview (01/30/2019): Added automatically from request for surgery [id number] Abnormal EKG 01/30/2019 Overview (01/30/2019): Added automatically from request for surgery [id number] Sick sinus syndrome 04/20/2018 Overview (04/20/2018): Added automatically from request for surgery [id number] Assessment & Plan (04/27/2018 8:59 AM CDT): [...] sotalol 40mg BID Chronic systolic heart failure 03/24/2018 Assessment & Plan (03/25/2018 10:41 AM CDT): [...] PM CDT): - mild 3v dz on LHC 03/2015 - ct ASA, statin Dizziness 01/10/2017 [...] 04/19/2005 Left bundle branch block (LBBB) 07/09/2003 Resolved Problems Problem Noted Date Diagnosed Date Resolved Date Nocturnal hypoxemia 02/26/2019 11/06/19 Encounters Date Type Department Care Team Description 11/05/2024 10:30 AM SKYLIGHTS ASSEMBLER Telemedicine [facility] Neuro Sleep [address] 6th [address] [place] [address] Mauro Zamora MD Obstructive sleep apnea syndrome (Primary Dx); Paroxysmal atrial fibrillation (HCC); Left ventricular dysfunction 11/04/2024 3:20 PM SKYLIGHTS ASSEMBLER - 11/04/2024 11:59 PM SKYLIGHTS ASSEMBLER Hospital Encounter [facility] [address] [place] [address] Dorothea Dick MD Sinus of Valsalva aneurysm Discharge Disposition: Discharge to home or self care 10/30/2024 1:30 PM SKYLIGHTS ASSEMBLER Office Visit [facility] Cardiology [address] [facility] [address] [place] [address] [place] [address] Johnna Navarrete NP Stenosis of carotid artery, unspecified laterality (Primary Dx) 10/30/2024 1:00 PM SKYLIGHTS ASSEMBLER Ancillary Procedure [facility] Cardiology [address] [facility] 8th [place] [address] [place] [address] Cardiomyopathy, unspecified type (HCC) (Primary Dx); Fitting and adjustment of cardiac pacemaker 09/24/2024 9:30 AM SKYLIGHTS ASSEMBLER Office Visit [facility] Surgery [address] [facility] 8th [place] [address] [place] [id number] Edgar Bey MD Pain in both lower extremities (Primary Dx) 09/23/2024 Telephone [facility] Cardiology [address] [facility] [address]th [place] [address] [place] [phone] Marty Torres MD Urgent Page/ Cardiac clearance (Upper Endoscopy) 09/18/2024 3:27 PM SKYLIGHTS ASSEMBLER - 09/18/2024 11:59 PM SKYLIGHTS ASSEMBLER Hospital Encounter [facility] [address] [place] [address] Oanh Trevizo NP Spinal stenosis of lumbar region without neurogenic claudication (Primary Dx); Chronic midline low back pain without sciatica; Lumbar radiculopathy; Sacroiliitis; Primary hypertension; DDD (degenerative disc disease), lumbar; Lumbar stenosis with neurogenic claudication Discharge Disposition: Discharge to home or self care 09/17/2024 2:45 PM SKYLIGHTS ASSEMBLER Office Visit [facility] Cardiothoracic Surgery [address] [place] [address] 8th Floor [phone] [place] [address] Guanaco Ochoa MD Paroxysmal atrial fibrillation (HCC) 09/11/2024 3:00 PM SKYLIGHTS ASSEMBLER Ancillary Procedure [facility] Cardiology [address] [facility] [address] [place] [address] Coronary artery disease involving yocha dehe coronary artery of yocha dehe heart with other form of angina pectoris; Palpitations; Left bundle branch block (LBBB) 09/11/2024 1:30 PM SKYLIGHTS ASSEMBLER Ancillary Procedure [facility] Cardiology [address] [facility] [address] [place] [address] Carotid bruit, unspecified laterality 09/11/2024 Orders Only [facility] Scheduling [address] [facility] [place] [address] Marty Torres MD 08/20/2024 10:45 AM SKYLIGHTS ASSEMBLER - 08/20/2024 11:59 PM SKYLIGHTS ASSEMBLER Hospital Encounter [facility] [address] [place] [address] Torin Almodovar MD Spinal stenosis of lumbar region without neurogenic claudication; Lumbar radiculopathy; Sacroiliitis Discharge Disposition: Discharge to home or self care 08/19/2024 11:45 AM SKYLIGHTS ASSEMBLER Office Visit [facility] Cardiology [address] [facility] [facility] [address] [address] [place] [address] Marty Torres MD Carotid bruit, unspecified laterality (Primary Dx); Coronary artery disease involving yocha dehe coronary artery of yocha dehe heart with other form of angina pectoris; Palpitations; Left bundle branch block (LBBB); Paroxysmal atrial fibrillation (HCC) 08/19/2024 Orders Only [facility] Cardiology [address] [facility] [address] [place] [address] Tree Ruiz MD PhD 08/19/2024 Orders Only [facility] CARDIOLOGY Berenice Olivares RN 08/14/2024 Telephone [facility] Cardiology [address] [place] [address] Medicine 8th [place] [address] [place] [address] Marty Torres MD Med Refill (Entresto); Entresto Samples from Last 3 Months Immunizations Immunization Administration Dates Next Due DT 05/05/1998 DTaP, [...] Hypertension PVC's (premature ventricular contractions) Atrial fibrillation (HCC) s/p ab lation in 2006 BPPV (benign paroxysmal positional vertigo) PUD (peptic ulcer disease) GERD (gastroesophageal reflux disease) Spinal stenosis OA (osteoarthritis) Hyperlipidemia HFrEF (heart failure with reduced ejection fract ion) (HCC) EF 42% Carotid artery disease CHF (congestive heart failure) (HCC) Sleep apnea Heart disease Heart failure (HCC) [...] Date Smoking Tobacco: Former Cigarettes Q uit: 1971 Passive Smoke Exposure: Past Smokeless Tobacco: Never Tobacco Cessation:Counseling Given: Not Answered Alcohol Use Standard Drinks/Week Comments Yes 7 (1 standard drink = 0.6 oz pur e alcohol) [facility] Utilities Answer Date Recorded In the past 12 months has th e [employer], gas, oil, or water [employer] threatened to shut off services in your [...] often do you attend chur ch or alevism services? Never 09/22/2023 Do you belong to any clubs o r organizations such as yarsanism groups, unions, fraternal or athletic groups, or [...] place to sleep or slept in a retirement (including now)? No 09/22/2023 Personal Safety Answer Date Recorded Have you ever been in or are you currently in a harmful physical or emotional relationship or is someone making you feel afraid or unsafe? Denies 09/20/2023 Sex and Gender Information Value Date Recorded Sex Assigned at Not on file Legal Sex Male 3:18 AM SKYLIGHTS ASSEMBLER Gender Identity Male 11/05/2020 12:05 PM SKYLIGHTS ASSEMBLER Sexual Orientation Not on file Obstetrics History Last Filed Vital Signs Vital Sign Reading Time Taken Comments Blood Pressure 112/77 10/30/2024 1:24 PM SKYLIGHTS ASSEMBLER Pulse 88 10/30/2024 1:24 PM SKYLIGHTS ASSEMBLER Temperature 36.2 C (97.1 F) 08/20/2024 11:05 AM SKYLIGHTS ASSEMBLER Respiratory Rate 18 09/18/2024 3:41 PM SKYLIGHTS ASSEMBLER Oxygen Saturation 97% 10/30/2024 1:24 PM SKYLIGHTS ASSEMBLER Inhaled Oxygen Concentration - - Weight 79.8 kg (176 lb) 11/05/2024 10:37 AM SKYLIGHTS ASSEMBLER Height 175.3 cm (5' 9 ) 11/05/2024 10:37 AM SKYLIGHTS ASSEMBLER Body Mass Index 25.99 11/05/2024 10:37 AM SKYLIGHTS ASSEMBLER Plan of Treatment Health Maintenance Due Date Last Done Comments Hepatitis B Screening 1958 Zoster Vaccine (1 of 2) 1992 Well Visit 65+ 2007 Pneumococcal vaccine 65+ (2 of 2 - PPSV23) 03/20/2015 01/23/2015, 01/23/2015 DTaP/Tdap/Td Vaccine (3 - Tdap) 02/26/2019 9, 05/05/1998 Depression Screening 09/13/2023 09/13/2022, 09/13/19 23 Covid-19 Vaccine (3 - 2023-2 5 season) 2024 07/04/2021, 10/14/2020 Influenza Vaccine (#1) 2024 , 05/31/2021, 05/31/2021, Additional history exists Fall Risk Assessment 09/18/2025 09/18/2024 Abdominal Aortic Aneurysm (A AA) Screen Completed 05/18/2021, 02/18/2019 Medical Devices Implanted Type Area Semiconductor Equipment Technician Device Identifier Shelf Expiration Date Model / Serial / Lot Medtronic Cardiac Rhythm Mgmt 5076-52 Capsurefix Novus 6.2fr 2mm 52cm Bipolar Screw In Implantable Latex Free - [id number] - [id number] Implanted:Qty: 1 on 04/24/2018 by Osmany Pina MD at [facility] Pacemaker Left: Heart Medtronic Cardiac Rhythm Mgmt [id number] 03/08/2020 5076-52 / [id number] / Medtronic Cardiac Rhythm Mgmt 5076-45 Capsurefix Novus Od6.2 Fr; Odsec2 Mm L45 Cm Bipolar; Screw In; Im - [id number] - [id number] Implanted:Qty: 1 on 04/24/2018 by Osmany Pina MD at [facility] Pacemaker Left: Heart Medtronic Cardiac Rhythm Mgmt [id number] 02/13/2020 5076-45 / [id number] / Medtronic Inc [id number] Attain Performa Starfix 5.3fr 5.1fr 88cm Quadripolar Is4-Llll Latex Free - [id number] - [id number] Implanted:Qty: 1 on 04/24/2018 by Osmany Pina MD at [facility] Pacemaker Left: Heart Medtronic Inc 02/15/2020 [id number] / [id number] / Pacemaker Cardiac 11mm 19.9cu Cm 46.5x59mm Rain Pink - [id number] - [id number] Implanted:Qty: 1 on 04/24/2018 by Osmany Pina MD at [facility] Pacemaker Left: Chest Medtronic Inc 06/17/2019 [id number] / [id number] / [employer] Device Clsr Perclose Prostyle Sut-Mediatd Closure-Repair Sys 70961-93 - [id number] - [id number] Implanted:Qty: 1 on 09/20/2023 by Antoine Nelson MD at [facility] Vascular Closure Device N/A: Femoral Vein [employer] 05/04/2025 75803-28 / [id number] / [id number] Procedures Procedure Name Priority Date/Time Associated Diagnosis Comments CTA CHEST W CONTRAST Schedule Routine, Read Routine (OP Routine) 11/04/2024 4:01 PM SKYLIGHTS ASSEMBLER Sinus of Valsalva aneurysm POCT CREATININE - DEVICE Routine 11/04/2024 3:40 PM SKYLIGHTS ASSEMBLER DEVICE CHECK - IN OFFICE Routine 10/30/2024 12:42 PM SKYLIGHTS ASSEMBLER Cardiomyopathy, unspecified type (HCC) Fitting and adjustment of cardiac pacemaker TRANSTHORACIC ECHO (TTE) COMPLETE W DOPPLER/CF W CONTRAST Routine 09/11/2024 3:34 PM SKYLIGHTS ASSEMBLER Coronary artery disease involving yocha dehe coronary artery of yocha dehe heart with other form of angina pectoris Palpitations Left bundle branch block (LBBB) US CAROTIDS DUPLEX BILATERAL Schedule Routine, Read Routine (OP Routine) 09/11/2024 2:09 PM SKYLIGHTS ASSEMBLER Carotid bruit, unspecified laterality PAIN MGMT IMAGING SI JOINT LEFT Schedule Routine, Read Routine (OP Routine) 08/20/2024 12:06 PM SKYLIGHTS ASSEMBLER Spinal stenosis of lumbar region without neurogenic claudication Lumbar radiculopathy Sacroiliitis DEVICE CHECK - REMOTE Routine 08/19/2024 7:38 AM SKYLIGHTS ASSEMBLER SCAN - LABS 08/19/2024 CTA ABDOMINAL AORTA AND BILATERAL ILIOFEMORAL RUNOFF Schedule Routine, Read Routine (OP Routine) 02/18/2019 3:29 PM CDT Abnormal ankle brachial index (ODALIS) Pain in both lower extremities from Last 3 Months or Most Recently Relevant to Health Maintenance Results * CTA Chest W Contrast (11/04/2024 4:01 PM SKYLIGHTS ASSEMBLER) Anatomical Region Laterality Modality Chest N/A Computed Tomogra phy 11/04/2024 7:27 PM SKYLIGHTS ASSEMBLER Impressions 11/04/2024 7:27 PM SKYLIGHTS ASSEMBLER Stable dilatation of the aortic root measuring up to 49 mm, previously 49 mm. Electronically signed by: Iam Piper MD, PHD Narrative 11/04/2024 7:27 PM SKYLIGHTS ASSEMBLER EXAMINATION: CTA CHEST W CONTRAST HISTORY: Aortic aneurysm suspected TECHNIQUE: CT angiography of the chest was performed with intravenous contrast according to the flash protocol after the uneventful administration of 92 mL Opti-Ray 350 intravenous contrast. Vascular 3D images were generated on a dedicated workstation and also reviewed. COMPARISON: 02/17/2023 FINDINGS: The following measurements of the thoracic aorta remain orthogonal to the long axis of the vessel: Sinuses of Valsalva: 47 x 49 x 46 mm, previously 46 x 49 x 47 mm. Sinotubular junction: 38 x 38 mm, previously 40 x 39 mm Maximum ascending aorta: 39 x 39 mm, previously 40 x 39 mm. Heart size is stable at the upper limits of normal. There is no pericardial effusion. There is a left subclavian approach pacemaker defibrillator with right atrial, right ventricular and cardiac vein leads. A moderate burden of calcified coronary artery disease is again seen. Main pulmonary artery is normal in caliber. No supraclavicular or axillary lymphadenopathy. No mediastinal or hilar lymphadenopathy. There is no pleural effusion or pneumothorax. Minimal atelectasis in the lung bases. The lungs are otherwise clear. Limited images of the upper abdomen demonstrate cysts in the liver and kidneys. The gallbladder is absent. A small amount of high density material layering in the distal stomach, likely recent ingestion. No suspicious lytic or blastic lesion. Procedure Note Iam Piper MD PhD - 11/04/2024 EXAMINATION: CTA CHEST W CONTRAST HISTORY: Aortic aneurysm suspected TECHNIQUE: CT angiography of the chest was performed with intravenous contrast according to the flash protocol after the uneventful administration of 92 mL Opti-Ray 350 intravenous contrast. Vascular 3D images were generated on a dedicated workstation and also reviewed. COMPARISON: 02/17/2023 FINDINGS: The following measurements of the thoracic aorta remain orthogonal to the long axis of the vessel: Sinuses of Valsalva: 47 x 49 x 46 mm, previously 46 x 49 x 47 mm. Sinotubular junction: 38 x 38 mm, previously 40 x 39 mm Maximum ascending aorta: 39 x 39 mm, previously 40 x 39 mm. Heart size is stable at the upper limits of normal. There is no pericardial effusion. There is a left subclavian approach pacemaker defibrillator with right atrial, right ventricular and cardiac vein leads. A moderate burden of calcified coronary artery disease is again seen. Main pulmonary artery is normal in caliber. No supraclavicular or axillary lymphadenopathy. No mediastinal or hilar lymphadenopathy. There is no pleural effusion or pneumothorax. Minimal atelectasis in the lung bases. The lungs are otherwise clear. Limited images of the upper abdomen demonstrate cysts in the liver and kidneys. The gallbladder is absent. A small amount of high density material layering in the distal stomach, likely recent ingestion. No suspicious lytic or blastic lesion. IMPRESSION: Stable dilatation of the aortic root measuring up to 49 mm, previously 49 mm. Electronically signed by: Iam Piper MD, PHD Dorothea Dick MD IMG CT PROCEDURES Final Result * POCT creatinine (11/04/2024 3:40 PM SKYLIGHTS ASSEMBLER) Creatinine POC 0.9 0.8 - 1.3 mg/dL Blood 11/04/2024 3:40 PM SKYLIGHTS ASSEMBLER 11/04/2024 3:40 PM SKYLIGHTS ASSEMBLER Dorothea Dick MD LAB POCT ORDERABLES - DEVICE Fin al Result [facility] [place] [address] * DEVICE CHECK - IN OFFICE (10/30/2024 12:42 PM SKYLIGHTS ASSEMBLER) Anatomical Region Laterality Modality Other 10/30/2024 2:00 AM SKYLIGHTS ASSEMBLER Narrative 11/08/2024 9:01 AM SKYLIGHTS ASSEMBLER Interpretation Summary: Battery and Leads (BL) Normal parameters identified on lead(s) Less than 1 year of battery longevity noted --- 8 months to GRINDER LAP Presenting Rhythm (NC) Atrial Pacing-BiVentricular Pacing (AP-BiVP) Arrhythmic events (AE) Nonsustained VT event(s) identified Anticoagulation (AC) Patient prescribed Apixaban (Eliquis) Patient on anticoagulant therapy Procedure Note Tree Ruiz MD PhD - 11/08/2024 Interpretation Summary: Battery and Leads (BL) Normal parameters identified on lead(s) Less than 1 year of battery longevity noted --- 8 months to GRINDER LAP Presenting Rhythm (NC) Atrial Pacing-BiVentricular Pacing (AP-BiVP) Arrhythmic events (AE) Nonsustained VT event(s) identified Anticoagulation (AC) Patient prescribed Apixaban (Eliquis) Patient on anticoagulant therapy Result [facility] Tree Ruiz MD PhD CV CARDIAC SERVICES PROCEDURES Final Result * TRANSTHORACIC ECHO (TTE) COMPLETE W DOPPLER/CF W CONTRAST (09/11/2024 3:34 PM SKYLIGHTS ASSEMBLER) LV EF 45 % CARDIOREPORT Anatomical Region Laterality Modality Ultrasound 09/11/2024 3:00 PM SKYLIGHTS ASSEMBLER Narrative 09/11/2024 8:00 PM SKYLIGHTS ASSEMBLER Patient name: Donald Fatima Date of test: 09/11/2024 Type of test: TTE w/Doppler Hospital #: 0 Date of : 1940 (M) Trading Assistant: Daisha Musa RDCS Referring Physician: MARTY TORRES MD Contrast Agent: 1.1 ml Optison Administered, (1.9 ml wasted). Contrast Administered by: Daisha Musa [facility] Supervised/Interpreted by: Marty Torres MD Diagnosis: Location: [facility] Reason for test: CAD MV Structure: Normal, [...] 2=Hypo 3=Akinetic 4=Dyskin./Aneurysm 0=Not visualized) Parasternal Long Jackson:MAS=1 BAS=1 MIL=1 HAO=1 Parasternal Short Jackson:MAS=1 MIS=1 WY=1 MIL=1 MAL=1 MA=1 Apical 4 Chambers:=1 MIS=1 BIS=1 BAL=1 MAL=1 AL=1 AC=1 Apical 2 Chambers:AI=1 WY=1 BI=1 BA=1 MA=1 AA=1 AC=1 LV Global [...] MD By signing this report, the attending computer technology teacher certifies that he or she has personally supervised and interpreted the echocardiogram and has reviewed and or edited and agrees with the written comments contained within the report. Procedure Note Marty Torres MD - 09/11/2024 Patient name: Donald Fatima Date of test: 09/11/2024 Type of test: TTE w/Doppler Hospital #: 0 Date of : 1940 (M) Trading Assistant: Daisha Musa RDCS Referring Physician: MARTY TORRES MD Contrast Agent: 1.1 ml Optison Administered, (1.9 ml wasted). Contrast Administered by: Daisha Musa RDCS Supervised/Interpreted by: Marty Torres MD Diagnosis: Location: [facility] Reason for test: CAD MV Structure: Normal, [...] 2=Hypo 3=Akinetic 4=Dyskin./Aneurysm 0=Not visualized) Parasternal Long Jackson:MAS=1 BAS=1 MIL=1 HAO=1 Parasternal Short Jackson:MAS=1 MIS=1 WY=1 MIL=1 MAL=1 MA=1 Apical 4 Chambers:=1 MIS=1 BIS=1 BAL=1 MAL=1 AL=1 AC=1 Apical 2 Chambers:AI=1 WY=1 BI=1 BA=1 MA=1 AA=1 AC=1 LV Global [...] MD By signing this report, the attending computer technology teacher certifies that he or she has personally supervised and interpreted the echocardiogram and has reviewed and or edited and agrees with the written comments contained within the report. us Marty Torres MD CV ECHO PROCEDURES Final Resul t * US Carotids Duplex Bilateral (09/11/2024 2:09 PM SKYLIGHTS ASSEMBLER) Anatomical Region Laterality Modality Vascular Bilateral Ultrasound 09/11/2024 1:30 PM SKYLIGHTS ASSEMBLER Narrative 09/11/2024 8:34 PM SKYLIGHTS ASSEMBLER Patient name: Donald Fatima Date of test: 09/11/2024 Hospital #: 0 Location: [facility] [place] Physician(s): , MARTY TORRES MD Interpreted by: Marty Torres MD Tech: Mary Kelley [facility] Type of Test: Carotid Doppler [...] of test: 09/11/2024 Hospital #: 0 Location: [facility] [place] Physician(s): , MARTY TORRES MD Interpreted by: Marty Torres MD Tech: Mary Kelley [facility] Type of Test: Carotid Doppler [...] Result * Imaging SI Joint Injection Left (40245) (08/20/2024 12:06 PM SKYLIGHTS ASSEMBLER) Narrative RAD_PACS_CH - 08/20/2024 12:06 PM SKYLIGHTS ASSEMBLER The images from this study are not interpreted by Radiology. Please refer to the physician's procedure / OR operative note. us Oanh Trevizo NP IMG PAIN MGMT PROCEDURE S Final Result RAD_PACS_CH * DEVICE CHECK - REMOTE (08/19/2024 7:38 AM SKYLIGHTS ASSEMBLER) Anatomical Region Laterality Modality Other 08/19/2024 7:38 AM SKYLIGHTS ASSEMBLER Narrative 09/03/2024 6:42 PM SKYLIGHTS ASSEMBLER Interpretation Summary: Battery and Leads (BL) Normal parameters noted on battery and lead(s) --- 12 months remaining longevity (implanted 2017). Lead impedance, sensing, and RA/RV threshold trends stable and appropriate. No short V-V intervals. Capture threshold chronically elevated --- LV threshold 3.25/0.4. Trend shows chronically elevated LV threshold measurements. LV output is programmed Adaptive, currently 5.5/0.4. Presenting Rhythm (NC) Atrial Pacing-BiVentricular Pacing (AP-BiVP) --- AP/BVP 62 bpm. Arrhythmic events (AE) Nonsustained VT event(s) identified --- Since 05/20/24: One NSVT episode, 2 sec. Anticoagulation (AC) Patient on anticoagulant therapy [...] output isprogrammed Adaptive, currently 5.5/0.4. Presenting Rhythm (NC) Atrial Pacing-BiVentricular Pacing (AP-BiVP) --- AP/BVP 62 bpm. Arrhythmic events (AE) Nonsustained VT event(s) identified --- Since 05/20/24: One NSVT episode,2 sec. Anticoagulation (AC) Patient on anticoagulant therapy Patient prescribed Apixaban (Eliquis) Transmission Information (TI) Device Summary Report Follow Up (FU) Patient's primary treating physician will be apprised of findings us Tree Ruiz MD PhD [facility] PROCEDURES Final Result * SCAN - LABS (08/19/2024) us Berenice Olivares RN Final Result * CTA Abdominal Aorta And [...] M.D. Narrative 02/18/2019 4:06 PM CDT EXAMINATION: CT ANGIOGRAPHY OF THE ABDOMEN, PELVIS, [...] by: Kumar Davenport M.D. Marty Torres MD IM CT PROCEDURES Final Result from Last 3 Months or Most Recently Relevant to Health Maintenance Insurance MEDICARE [facility] MEDICARE SUPPLEMENT MEDICARE MEDICARE [facility] MEDICARE [facility] MEDICARE BLUE CROSS MEDICARE SUPPLEMENT Advance Directives For more information, please contact: [phone] * Full Code (Latest Code Status on File) Date Activated Date Inactivated Comments 09/20/2023 6:27 PM 09/21/2023 7:45 PM * Full Code Date Activated Date Inactivated Comments 04/24/2018 5:50 PM 04/27/2018 2:46 PM * Full Code Date Activated Date Inactivated Comments 03/24/2018 11:24 PM 03/25/2018 4:51 PM Care Teams Agriculture Sales Account Manager Relationship Specialty Start Date End Date Cheo Potts MD [address] [place] [address] PCP - General 01/03/17 Marty Torres MD [address] [facility] [address] [place] [address] Consulting Physician Cardiology 11/15/18 Qi Norris MD [address] [address] Referring Physician Gastroenterology 05/10/23 Katharina Mac, DEB[place] [address] [address] Nurse Practitioner Cardiology 11/21/23 Tree Ruiz MD PhD [address] [address] Consulting Physician Cardiology 11/21/23 [place] [address] [facility] [address] [place] [address] Nurse Practitioner Drawer In Hand 07/18/24 [place] [address] [facility] [address] [place] [address] Nurse Practitioner Drawer In Hand 09/18/24
--- OUTSIDE RECORDS SUMMARY | 2024-11-11 14:04 | XMS_ITS | Encounter Summary ---
Author Organization [facility] Address [address] [place] [address] Phone Care Team Providers Care Street Light Wirer Name Role Phone Cheo Potts MD Primary Care Provider Neftaly Portillo MD Unavailable [phone] Tree Ruiz MD PhD Unavailable [phone] Katharina Mac DENTAL SECRETARY Unavailable Qi Norris MD Unavailable [phone] Yuly Nieves RN Unavailable [phone] Katharina Mac DENTAL SECRETARY Unavailable Tree Ruiz MD PhD Unavailable [phone] Oanh Trevizo DENTAL SECRETARY Unavailable Oanh Trevizo DENTAL SECRETARY Unavailable Encounter Details Date Type Department Care [...] on file Legal Sex Male 3:18 AM CHIEF OF SERVICE Gender Identity Male 11/05/2020 12:05 PM CHIEF OF SERVICE Sexual Orientation Not on file documented as of this encounter Plan of Treatment Not on file documented as of this encounter Procedures Procedure Name Priority Date/Time Associated Diagnosis Comments SLEEP LAB/STUDY - RESULT 12/20/2018 documented in this encounter Results * SLEEP LAB/STUDY - RESULT (12/20/2018) Provider Scanning Final Result documented in this encounter Visit Diagnoses Not on filedocumented in this encounter Care Teams Street Light Wirer Relationship Specialty Start Date End Date Cheo Potts MD [address] [place] [address] PCP - General 01/03/17 Neftaly Portillo MD [address] [facility] [address] [facility] [address] [place] [address] Consulting Physician Cardiology 11/15/18 Tree Ruiz MD PhD [address] [facility] [address] [place] [address] Referring Physician Cardiology 12/10/20 11/20/23 Katharina Mac NP [address] [facility] [address] [place] [address] Referring Physician Cardiology 12/10/20 11/20/23 Qi Norris MD [address] [address] Referring Physician Gastroenterology 05/10/23 Yuly Nieves, RN [address] [facility] [address] [place] [address] [facility] Out[facility] Case Manager 09/22/23 10/18/23 Katharina Mac NP [address] [facility] [address] [place] [address] Nurse Practitioner Cardiology 11/21/23 Tree Ruiz MD PhD [address] [facility] [address] [place] [address] Consulting Physician Cardiology 11/21/23 [place] [address] [facility] [address] [place] [address] Nurse Practitioner Rubbish Collection Supervisor 07/18/24 [place] [address] [facility] [address] [place] [address] Nurse Practitioner Rubbish Collection Supervisor 09/18/24 documented as of this encounter
--- OUTSIDE RECORDS SUMMARY | 2024-11-11 14:04 | XMS_ITS | Encounter Summary ---
Author Organization [facility] Address [address] [place] [address] Phone Care Team Providers Care Assistant Professor Of Drama Name Role Phone Cheo Potts MD Primary Care Provider Neftaly Portillo MD Unavailable [phone] Tree Ruiz MD PhD Unavailable [phone] Katharina Mac ACCOUNT COORDINATOR Unavailable Qi Norris MD Unavailable [phone] Yuly Nieves RN Unavailable [phone] Katharina Mac ACCOUNT COORDINATOR Unavailable [phone] Tree Ruiz MD PhD Unavailable [phone] Oanh Trevizo ACCOUNT COORDINATOR Unavailable Oanh Trevizo ACCOUNT COORDINATOR Unavailable Reason for Visit * Reason Onset Date Comments CALL BACK 04/20/2018 Encounter Details Date Type Department Care Team (Late st Contact Info) Description 04/20/2018 Telephone [facility] Cardiology [address] [facility] Advanced Medicine 8th [place] [address] [place] [address] Tree Ruiz MD PhD [address] [facility] [address] [place], [place] [id number] CALL BACK Social History Tobacco Use Types Packs/Day Years Used Date Smoking Tobacco: Former Smokeless Tobacco: Never Alcohol Use Standard Drinks/Week Comments No 7 (1 standard drink = 0.6 oz pur e alcohol) Sex and Gender Information Value Date Recorded Sex Assigned at Not on file Legal Sex Male 3:18 AM SENIOR MEDIA PLANNER Gender Identity Male 11/05/2020 12:05 PM SENIOR MEDIA PLANNER Sexual Orientation Not on file documented as of this encounter Plan of Treatment Not on file documented as of this encounter Visit Diagnoses Not on filedocumented in this encounter Care Teams Assistant Professor Of Drama Relationship Specialty Start Date End Date Cheo Potts MD [address] [place] [address] PCP - General 01/03/17 Neftaly Portillo MD [address] [facility] [address] [place] [address] Consulting Physician Cardiology 11/15/18 Tree Ruiz MD PhD [address] [facility] [address] [place] [address] Referring Physician Cardiology 12/10/20 11/20/23 Katharina Mac NP [address] [facility] [address] [place] [address] Referring Physician Cardiology 12/10/20 11/20/23 Qi Norris MD [address] [address] Referring Physician Gastroenterology 05/10/23 Yuly Nieves RN [address] [facility] [address] [place] [address] [facility] Outpatient Clay Roaster 09/22/23 10/18/23 Katharina Mac NP [address] [facility] [address] [place] [address] Nurse Practitioner Cardiology 11/21/23 Tree Ruiz MD PhD [address] [facility] [address] [place], [place] [address] Consulting Physician Cardiology 11/21/23 [place] [address] [facility] [address] [place] [address] Nurse Practitioner Certified Veterinary Technician 07/18/24 [place] [address] [facility] [address] [place] [address] Nurse Practitioner Certified Veterinary Technician 09/18/24 documented as of this encounter
--- OUTSIDE RECORDS SUMMARY | 2024-11-11 14:04 | XMS_ITS | Referral Summary ---
Author Organization [facility] Address [address] [place] [address] Care Team Providers Care Windows Software Engineer Name Role Phone Cheo Potts MD Primary Care Provider Marty Torres MD Unavailable [phone] Qi Norris MD Unavailable [phone] Katharina Mac RESIN FILTERER Unavailable Tree Ruiz MD PhD Unavailable [phone] Oanh Trevizo RESIN FILTERER Unavailable [phone] Oanh Trevizo RESIN FILTERER Unavailable Encounters Date Type Department Care Team Description 11/05/2024 10:30 AM EMBEDDED FIRMWARE ENGINEER Telemedicine [facility] Neuro Sleep [address] [facility] 6th Floor [address] [place] [phone] Mauro Zamora MD Obstructive sleep apnea syndrome (Primary Dx); Paroxysmal atrial fibrillation (HCC); Left ventricular dysfunction 11/04/2024 3:20 PM EMBEDDED FIRMWARE ENGINEER - 11/04/2024 11:59 PM EMBEDDED FIRMWARE ENGINEER Hospital Encounter [facility] [address] [place] [address] Dorothea Dick MD Sinus of Valsalva aneurysm Discharge Disposition: Discharge to home or self care 10/30/2024 1:30 PM EMBEDDED FIRMWARE ENGINEER Office Visit [facility] Cardiology [address] [facility] 8th [place] [address] [place] [phone] Johnna Navarrete NP Stenosis of carotid artery, unspecified laterality (Primary Dx) 10/30/2024 1:00 PM EMBEDDED FIRMWARE ENGINEER Ancillary Procedure [facility] Cardiology [facility] 8th [place] [address] [place] [address] Cardiomyopathy, unspecified type (HCC) (Primary Dx); Fitting and adjustment of cardiac pacemaker 09/24/2024 9:30 AM EMBEDDED FIRMWARE ENGINEER Office Visit [facility] Surgery [address] [place] [address] 8th [address] [place] [phone] Edgar Bey MD Pain in both lower extremities (Primary Dx) 09/23/2024 Telephone [facility] Cardiology [address] [place] [address] 8th [place] [address] [place] [address] Marty Torres MD Urgent Page/ Cardiac clearance (Upper Endoscopy) 09/18/2024 3:27 PM EMBEDDED FIRMWARE ENGINEER - 09/18/2024 11:59 PM EMBEDDED FIRMWARE ENGINEER Hospital Encounter [facility] [id number] [place] [address] Oanh Trevizo NP Spinal stenosis of lumbar region without neurogenic claudication (Primary Dx); Chronic midline low back pain without sciatica; Lumbar radiculopathy; Sacroiliitis; Primary hypertension; DDD (degenerative disc disease), lumbar; Lumbar stenosis with neurogenic claudication Discharge Disposition: Discharge to home or self care 09/17/2024 2:45 PM EMBEDDED FIRMWARE ENGINEER Office Visit [facility] Cardiothoracic Surgery [address] [place] [address] 8th [phone] [place] [phone] Guanaco Ochoa MD Paroxysmal atrial fibrillation (HCC) 09/11/2024 Orders Only [facility] Scheduling [facility] [place] [address] Marty Torres MD 09/11/2024 3:00 PM EMBEDDED FIRMWARE ENGINEER Ancillary Procedure [facility] Cardiology [address] [facility] [address] [place] [address] Coronary artery disease 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; Palpitations; Left bundle branch block (LBBB) 09/11/2024 1:30 PM EMBEDDED FIRMWARE ENGINEER Ancillary Procedure [facility] Cardiology [address] [facility] [address] [place] [address] Carotid bruit, unspecified laterality 08/20/2024 10:45 AM EMBEDDED FIRMWARE ENGINEER - 08/20/2024 11:59 PM EMBEDDED FIRMWARE ENGINEER Hospital Encounter [facility] [address] [place] [address] Torin Almodovar MD Spinal stenosis of lumbar region without neurogenic claudication; Lumbar radiculopathy; Sacroiliitis Discharge Disposition: Discharge to home or self care 08/19/2024 Orders Only [facility] Cardiology [address] 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; Palpitations; Left bundle branch block (LBBB); Paroxysmal atrial fibrillation (HCC) 08/14/2024 Telephone [facility] Cardiology [facility] 8th [place] [address] [place] [address] Marty Torres MD Med Refill (Entresto); Entresto Samples from Last 3 Months Allergies Active Allergy Reactions Criticality Noted Date Comments Celecoxib Other (See comments) Low Altered depth perception Ciprofloxacin Muscle pain,Other (S ee comments) Medium 12/06/2017 Muscle weakness FEELS BAD Latex Rash,Itching Medium 04/11/2017 Medications calcium carbonate-vitami n D3 1,500 mg (600mg elemental) -800 unit per tabletIndication s:Hypocalcemia Prevention,Preve ntion of Vitamin D Deficiency 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 Active coenzyme Q10 200 mg capsuleIndicatio ns:supplement Take 1 capsule (200 mg total) by mouth nightly Active magnesium oxide 200 mg tablet,chewableI ndications:suppl ement Take 200 mg by mouth 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 Active polyethylene glycol (MIRALAX) 17 gram packetIndication s:constipation Take 1 packet (17 g total) by mouth nightly Active multivitamin no.44-vit D3-K 1,000-800 unit-mcg capsuleIndicatio ns:Mineral Deficiency Prevention,Vitam in Deficiency Prevention 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 Active busPIRone (BUSPAR) 15 mg [...] 1 tablet (5 mg total) by mouth 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 06/16/20 22 Active sucralfate (CARAFATE) [...] GI bleeding 02/08/2023 Lumbar facet arthropathy 09/20/2022 [facility] current use of anticoagulant 3 Lumbar radiculopathy 09/13/2022 Chronic midline low back pain without sciatica 0 09/13/2022 DDD (degenerative disc disease), lumbar 09/13/19 23 Sacroiliitis 09/13/2022 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 Chronic idiopathic constipation 07/16/2021 Hepatomegaly 07/16/2021 History of alcohol abuse 07/16/2021 PAD (peripheral artery disease) 02/26/2019 Coronary artery disease invo lving hoopa coronary artery of hoopa heart without angina pectoris 01/30/2019 Overview (01/30/2019): Added automatically from request for surgery [id number] Abnormal EKG 01/30/2019 Overview (01/30/2019): Added automatically from request for surgery [id number] Sick sinus syndrome 04/20/2018 Overview (04/20/2018): Added automatically from request for surgery [id number] Assessment & Plan (04/27/2018 8:59 AM CDT): [...] Date Resolved Date Nocturnal hypoxemia 02/26/2019 11/06/19 25 Immunizations Immunization Administration Dates Next Due DT [...] drink = 0.6 oz pur e alcohol) [facility] [employer] Answer Date Recorded In the past 12 months has [employer], gas, oil, or water [place] threatened to shut off services in your [...] often do you attend chur ch or church services? Never 09/22/2023 Do you belong to any clubs o r organizations such as mandaeism groups, unions, fraternal or athletic groups, or [...] place to sleep or slept in a jail (including now)? No 09/22/2023 Personal Safety Answer Date Recorded Have you ever been in or are you currently in a harmful physical or emotional relationship or is someone making you feel afraid or unsafe? Denies 09/20/2023 Sex and Gender Information Value Date Recorded Sex Assigned at Not on file Legal Sex Male 3:18 AM EMBEDDED FIRMWARE ENGINEER Gender Identity Male 11/05/2020 12:05 PM EMBEDDED FIRMWARE ENGINEER Sexual Orientation Not on file Last Filed Vital Signs Vital Sign Reading Time Taken Comments Blood Pressure 112/77 10/30/2024 1:24 PM EMBEDDED FIRMWARE ENGINEER Pulse 88 10/30/2024 1:24 PM EMBEDDED FIRMWARE ENGINEER Temperature 36.2 C (97.1 F) 08/20/2024 11:05 AM EMBEDDED FIRMWARE ENGINEER Respiratory Rate 18 09/18/2024 3:41 PM EMBEDDED FIRMWARE ENGINEER Oxygen Saturation 97% 10/30/2024 1:24 PM EMBEDDED FIRMWARE ENGINEER Inhaled Oxygen Concentration - - Weight 79.8 kg (176 lb) 11/05/2024 10:37 AM EMBEDDED FIRMWARE ENGINEER Height 175.3 cm (5' 9 ) 11/05/2024 10:37 AM EMBEDDED FIRMWARE ENGINEER Body Mass Index 25.99 11/05/2024 10:37 AM EMBEDDED FIRMWARE ENGINEER Plan of Treatment Not on file Medical Devices Implanted Type Area Weaving Teacher Device Identifier Shelf Expiration Date Model / Serial / Lot Medtronic Cardiac Rhythm Mgmt 5076-52 Capsurefix Novus 6.2fr 2mm 52cm Bipolar Screw In Implantable Latex Free - [id number] - [id number] Implanted:Qty: 1 on 04/24/2018 by Osmany Pina MD at [facility] Pacemaker Left: Heart Medtronic Cardiac Rhythm Mgmt [id number] 03/08/2020 5076-52 / [id number] / Medtronic Cardiac Rhythm Mgmt 5076-45 Capsurefix Novus Od6.2 Fr; Odsec2 Mm L45 Cm Bipolar; Screw In; Im - [id number] - [id number] Implanted:Qty: 1 on 04/24/2018 by Osmany Pina MD at [facility] Pacemaker Left: Heart Medtronic Cardiac Rhythm Mgmt [id number] 02/13/2020 5076-45 / [id number] / Medtronic Inc [id number] Attain Performa Starfix 5.3fr 5.1fr 88cm Quadripolar Is4-Llll Latex Free - [id number] - [id number] Implanted:Qty: 1 on 04/24/2018 by Osmany Pina MD at [facility] Pacemaker Left: Heart Medtronic Inc 02/15/2020 [id number] / [id number] / Pacemaker Cardiac 11mm 19.9cu Cm 46.5x59mm Rain Surescan - [id number] - [id number] Implanted:Qty: 1 on 04/24/2018 by Osmany Pina MD at [facility] Pacemaker Left: Chest Medtronic Inc 06/17/2019 [id number] / [id number] / Moore Vascular Device Clsr Perclose Prostyle Sut-Mediatd Closure-Repair Sys 09172-24 - [id number] - [id number] Implanted:Qty: 1 on 09/20/2023 by Antoine Nelson MD at [facility] Vascular Closure Device N/A: Femoral Vein [employer] 05/04/2025 15764-45 / [id number] / [id number] Procedures Procedure Name Priority Date/Time Associated Diagnosis Comments CTA CHEST W CONTRAST Schedule Routine, Read Routine (OP Routine) 11/04/2024 4:01 PM EMBEDDED FIRMWARE ENGINEER Sinus of Valsalva aneurysm POCT CREATININE - DEVICE Routine 11/04/2024 3:40 PM EMBEDDED FIRMWARE ENGINEER DEVICE CHECK - IN OFFICE Routine 10/30/2024 12:42 PM EMBEDDED FIRMWARE ENGINEER Cardiomyopathy, unspecified type (HCC) Fitting and adjustment of cardiac pacemaker TRANSTHORACIC ECHO (TTE) COMPLETE W DOPPLER/CF W CONTRAST Routine 09/11/2024 3:34 PM EMBEDDED FIRMWARE ENGINEER Coronary artery disease 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 Palpitations Left bundle branch block (LBBB) US CAROTIDS DUPLEX BILATERAL Schedule Routine, Read Routine (OP Routine) 09/11/2024 2:09 PM EMBEDDED FIRMWARE ENGINEER Carotid bruit, unspecified laterality PAIN MGMT IMAGING SI JOINT LEFT Schedule Routine, Read Routine (OP Routine) 08/20/2024 12:06 PM EMBEDDED FIRMWARE ENGINEER Spinal stenosis of lumbar region without neurogenic claudication Lumbar radiculopathy Sacroiliitis DEVICE CHECK - REMOTE Routine 08/19/2024 7:38 AM EMBEDDED FIRMWARE ENGINEER SCAN - LABS 08/19/2024 CTA ABDOMINAL AORTA AND BILATERAL ILIOFEMORAL RUNOFF Schedule Routine, Read Routine (OP Routine) 02/18/2019 3:29 PM CDT Abnormal ankle brachial index (ODALIS) Pain in both lower extremities from Last 3 Months or Most Recently Relevant to Health Maintenance Results * CTA Chest W Contrast (11/04/2024 4:01 PM EMBEDDED FIRMWARE ENGINEER) Anatomical Region Laterality Modality Chest N/A Computed Tomogra phy 11/04/2024 7:27 PM EMBEDDED FIRMWARE ENGINEER Impressions 11/04/2024 7:27 PM EMBEDDED FIRMWARE ENGINEER Stable dilatation of the aortic root measuring up to 49 mm, previously 49 mm. Electronically signed by: Iam Piper MD, PHD Narrative 11/04/2024 7:27 PM EMBEDDED FIRMWARE ENGINEER EXAMINATION: CTA CHEST W CONTRAST HISTORY: Aortic [...] Result * POCT creatinine (11/04/2024 3:40 PM EMBEDDED FIRMWARE ENGINEER) Creatinine POC 0.9 0.8 - 1.3 mg/dL Blood 11/04/2024 3:40 PM EMBEDDED FIRMWARE ENGINEER 11/04/2024 3:40 PM EMBEDDED FIRMWARE ENGINEER Dorothea Dick MD LAB POCT ORDERABLES - DEVICE Fin al Result [facility] [place] [address] * DEVICE CHECK - IN OFFICE (10/30/2024 12:42 PM EMBEDDED FIRMWARE ENGINEER) Anatomical Region Laterality Modality Other 10/30/2024 2:00 AM EMBEDDED FIRMWARE ENGINEER Narrative 11/08/2024 9:01 AM EMBEDDED FIRMWARE ENGINEER Interpretation Summary: Battery and Leads (BL) Normal parameters identified on lead(s) Less than 1 year of battery longevity noted --- 8 months to 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 HELPER CRACKING UNIT Presenting Rhythm (NE) Atrial Pacing-BiVentricular Pacing (AP-BiVP) Arrhythmic events (AE) Nonsustained VT event(s) identified Anticoagulation (AC) Patient prescribed Apixaban (Eliquis) Patient on anticoagulant therapy Procedure Note Tree Ruiz MD PhD - 11/08/2024 Interpretation Summary: Battery and Leads (BL) Normal parameters identified on lead(s) Less than 1 year of battery longevity noted --- 8 months to 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 HEL[employer] CRACKING UNIT Presenting Rhythm (NE) Atrial Pacing-BiVentricular Pacing (AP-BiVP) Arrhythmic events (AE) Nonsustained VT event(s) identified Anticoagulation (AC) Patient prescribed Apixaban (Eliquis) Patient on anticoagulant therapy Result [facility] Tree Ruiz MD PhD CV CARDIAC SERVICES PROCEDURES Final Result * TRANSTHORACIC ECHO (TTE) COMPLETE W DOPPLER/CF W CONTRAST (09/11/2024 3:34 PM EMBEDDED FIRMWARE ENGINEER) LV EF 45 % CARDIOREPORT Anatomical Region Laterality Modality Ultrasound 09/11/2024 3:00 PM EMBEDDED FIRMWARE ENGINEER Narrative 09/11/2024 8:00 PM EMBEDDED FIRMWARE ENGINEER Patient name: Donald Fatima Date of test: 09/11/2024 Type of test: TTE w/Doppler [facility] #: 0 Date of : 1940 (M) Graphic Design Teacher: Daisha Musa RDCS Referring Physician: MARTY TORRES MD Contrast Agent: 1.1 ml Optison Administered, (1.9 ml wasted). Contrast Administered by: Daisha Musa RDCS Supervised/Interpreted by: Marty Torres MD Diagnosis: Location: [facility] Reason for test: CAD [...] 2=Hypo 3=Akinetic 4=Dyskin./Aneurysm 0=Not visualized) Parasternal Long Morgan:MAS=1 BAS=1 MIL=1 HAO=1 Parasternal Short Morgan:MAS=1 MIS=1 SD=1 MIL=1 MAL=1 MA=1 Apical 4 Chambers:=1 MIS=1 BIS=1 BAL=1 MAL=1 AL=1 AC=1 Apical 2 Chambers:AI=1 SD=1 BI=1 BA=1 MA=1 AA=1 AC=1 LV Global [...] MD By signing this report, the attending line leader certifies that he or she has personally supervised and interpreted the echocardiogram and has reviewed and or edited and agrees with the written comments contained within the report. Procedure Note Marty Torres MD - 09/11/2024 Patient name: Donald Fatima Date of test: 09/11/2024 Type of test: TTE w/Doppler [facility] #: 0 Date of : 1940 (M) Graphic Design Teacher: Daisha Musa RDCS Referring Physician: MARTY TORRES MD Contrast Agent: 1.1 ml Optison Administered, (1.9 ml wasted). Contrast Administered by: Daisha Musa RDCS Supervised/Interpreted by: Marty Torrse MD Diagnosis: Location: [facility] Reason for test: CAD [...] 2=Hypo 3=Akinetic 4=Dyskin./Aneurysm 0=Not visualized) Parasternal Long Morgan:MAS=1 BAS=1 MIL=1 HAO=1 Parasternal Short Morgan:MAS=1 MIS=1 SD=1 MIL=1 MAL=1 MA=1 Apical 4 Chambers:=1 MIS=1 BIS=1 BAL=1 MAL=1 AL=1 AC=1 Apical 2 Chambers:AI=1 SD=1 BI=1 BA=1 MA=1 AA=1 AC=1 LV Global [...] MD By signing this report, the attending line leader certifies that he or she has personally supervised and interpreted the echocardiogram and has reviewed and or edited and agrees with the written comments contained within the report. us Marty Torres MD CV ECHO PROCEDURES Final Resul t * US Carotids Duplex Bilateral (09/11/2024 2:09 PM EMBEDDED FIRMWARE ENGINEER) Anatomical Region Laterality Modality Vascular Bilateral Ultrasound 09/11/2024 1:30 PM EMBEDDED FIRMWARE ENGINEER Narrative 09/11/2024 8:34 PM EMBEDDED FIRMWARE ENGINEER Patient name: Donald Fatima Date of test: 09/11/2024 Hospital #: 0 Location: [facility] Physician(s): , MARTY TORRES MD Interpreted by: Marty Torres MD Tech: Mary Kelley [facility] Type of Test: Carotid Doppler Evaluation Procedure: [...] of test: 09/11/2024 Hospital #: 0 Location: [facility] Physician(s): MARTY MD Interpreted by: Marty Torres MD Tech: Mary Kelley [facility] Type of Test: Carotid Doppler Evaluation Procedure: [...] Result * Imaging SI Joint Injection Left ([id number]) (08/20/2024 12:06 PM EMBEDDED FIRMWARE ENGINEER) Narrative RAD_PACS_[facility] - 08/20/2024 12:06 PM EMBEDDED FIRMWARE ENGINEER The images from this study are not interpreted by Radiology. Please refer to the physician's procedure / OR operative note. us Oanh Trevizo NP IMG PAIN MGMT PROCEDURE S Final Result [facility] * DEVICE CHECK - REMOTE (08/19/2024 7:38 AM EMBEDDED FIRMWARE ENGINEER) Anatomical Region Laterality Modality Other 08/19/2024 7:38 AM EMBEDDED FIRMWARE ENGINEER Narrative 09/03/2024 6:42 PM EMBEDDED FIRMWARE ENGINEER Interpretation Summary: Battery and Leads (BL) Normal parameters noted on battery and lead(s) --- 12 months remaining longevity (implanted 2017). Lead impedance, sensing, and RA/RV threshold trends stable and appropriate. No short V-V intervals. Capture threshold chronically elevated --- LV threshold 3.25/0.4. Trend shows chronically elevated LV threshold measurements. LV output is programmed Adaptive, currently 5.5/0.4. Presenting Rhythm (NE) Atrial Pacing-BiVentricular Pacing (AP-BiVP) --- AP/BVP 62 [...] output isprogrammed Adaptive, currently 5.5/0.4. Presenting Rhythm (NE) Atrial Pacing-BiVentricular Pacing (AP-BiVP) --- AP/BVP 62 [...] Recently Relevant to Health Maintenance Insurance MEDICARE [facility] MEDICARE SUPPLEMENT MEDICARE MEDICARE [facility] MEDICARE [facility] MEDICARE [facility] MEDICARE SUPPLEMENT Advance Directives For more information, please contact: [phone] * Full Code (Latest Code Status on File) Date Activated Date Inactivated Comments 09/20/2023 6:27 PM 09/21/2023 7:45 PM * Full Code Date Activated Date Inactivated Comments 04/24/2018 5:50 PM 04/27/2018 2:46 PM * Full Code Date Activated Date Inactivated Comments 03/24/2018 11:24 PM 03/25/2018 4:51 PM Care Teams Windows Software Engineer Relationship Specialty Start Date End Date Cheo Potts MD [address] [facility] [address] [place] [id number] PCP - General 01/03/17 Marty Torres MD [address] [facility] [address] [place] [address] Consulting Physician Cardiology 11/15/18 Qi Norris MD 2 [facility] [address] [place] [address] Referring Physician Gastroenterology 05/10/23 Katharina Mac, [place] [address] [id number] Nurse Practitioner Cardiology 11/21/23 Tree Ruiz MD PhD 2 [facility] [address] [place] [address] Consulting Physician Cardiology 11/21/23 [place] [address] [address] [facility] [address] [place] [address] Nurse Practitioner Parliamentary Librarian 07/18/24 [place] [address] [address] [facility] [address] [place] [address] Nurse Practitioner Parliamentary Librarian 09/18/24
--- OUTSIDE RECORDS SUMMARY | 2024-11-11 14:04 | XMS_ITS | Encounter Summary ---
Author Organization [facility] Address [address] [place] [address] Phone Care Team Providers Care Manager Freelance Name Role Phone Cheo Potts MD Primary Care Provider Marques Barksdale DO Unavailable [phone] Barbara Warner APRN, ACCOUNT RETENTION REPRESENTATIVE Unavailable Qi Norris MD Unavailable [phone] Reason for Visit * Reason Comments Medication Refill Encounter Details Date Type Department Care Team (Late st Contact Info) Description 11/20/2022 Refill [facility] - Gastroenterology [facility] [address] [place] [address] Renetta Jacob Duyen, [facility] [address] [place] [address] Medication Refill Social History Tobacco Use Types [...] present documented in this encounter Care Teams Manager Freelance Relationship Specialty Start Date End Date Cheo Potts MD [address] [facility] [address] [place] [address] PCP - General Family Medicine 11/09/15 Marques Barksdale DO [address] [place] [address] [address] [place] [address] Gastroenterology 11/12/15 Barbara Warner APRN, ACCOUNT RETENTION REPRESENTATIVE [address] [place] [address] Nurse Practitioner Advanced Practice Nurse 10/24/22 Qi Norris MD [address] [place] [address] Consulting Physician Gastroenterology 05/12/22 documented as of this encounter
--- OUTSIDE RECORDS SUMMARY | 2024-11-11 14:04 | XMS_ITS | Clinical Summary ---
Author Organization [facility] Address [address], [facility] [address] [place] [address] Phone Care Team Providers Care Mangle Catcher Name Role Phone Cheo Potts MD Primary Care Provider Marques Barksdale DO Unavailable [phone] Barbara Warner APRN, COMMUNITY SERVICE SPECIALIST Unavailable Qi Norris MD Unavailable [phone] Allergies Active Allergy Reactions Criticality Noted Date [...] Take 10 mg by mouth. 4 Active ketoconazole (NIZORAL) 2 % Cream APPLY [...] TWICE DAILY 180 Tablet 1 4 Active spironolactone (ALDACTONE) 25 MG Tablet Take 25 mg by mouth daily. 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 3 History of alcohol abuse 07/16/2021 Hepatomegaly 07/16/2021 Chronic idiopathic constipation 07/16/2021 Gastroesophageal reflux disease without esophagi tis 07/16/2021 PAD (peripheral artery disease) 02/26/2019 Coronary artery disease invo [place] coronary artery of [place] heart without angina pectoris 01/30/2019 Overview (10/24/2022): Added automatically from request for surgery [id number] Sick sinus syndrome 04/20/2018 Overview (10/24/2022): Added automatically from request for surgery [id number] Last Assessment & Plan: Cardiac resynchronization defibrillator [...] Care Team Description 08/23/2024 Refill [facility] - [place] [address] [place] [address] Barbara Warner APRN, COMMUNITY SERVICE SPECIALIST Medication Refill from Last 3 Months Immunizations Immunization Administration Dates Next Due Covid-19, Mrna, Lnp-s, PF, 1 00 mcg/0.5 mL Dose (Moderna) 10/14/2020 Influenza Vaccine greater than 3 yrs 05/14/2015 Influenza, High-dose, Quadrivalent 05/31/2021, Influenza, Seasonal, Injecta ble, Undefined 05/14/2015 Influenza, high-dose, trivalent, PF 10/0 05/2020,06/15/2019,06/13/2018,2016,06/26/2016,06/21/2015,06/04/2014,0 06/01/2013,07/06/2012 Pneumococcal Vaccine - 13 Valent [...] 69 12/01/2023 11:14 AM CDT Temperature 37 C (98.6 F) 12/01/2023 11:14 AM CDT Respiratory Rate 14 [...] Procedure Name Priority Date/Time Associated Diagnosis Comments COLONOSCOPY Routine 03/19/2020 from Last 3 Months or Most Recently Relevant to Health Maintenance Results * COLONOSCOPY (03/19/2020) us Marques Barksdale DO PROCEDURE/MINOR SURGICAL ORDERA BLES Final Result from Last 3 Months or Most Recently Relevant to Health Maintenance Insurance MEDICARE [facility] Care Teams Mangle Catcher Relationship Specialty Start Date End Date Cheo Potts MD [address] [place] [address] PCP - General Family Medicine 11/09/15 Marques Barksdale DO [address] [facility] [address] [place] [address] Gastroenterology 11/12/15 Barbara Warner APRN, COMMUNITY SERVICE SPECIALIST [address] [place] [address] Nurse Practitioner Advanced Practice Nurse 10/24/22 Qi Norris MD [address] [place] [address] Consulting Physician Gastroenterology 05/12/22
--- OUTSIDE RECORDS SUMMARY | 2024-11-11 14:04 | XMS_ITS | Encounter Summary ---
Author Organization [facility] Address [address] [place] [address] Phone Care Team Providers Care Railroad Operator Name Role Phone Cheo Potts MD Primary Care Provider Neftaly Portillo MD Unavailable [phone] Tree Ruiz MD PhD Unavailable [phone] Katharina Mac RESISTOR TESTING MACHINE OPERATOR Unavailable Qi Norris MD Unavailable [phone] Yuly Nieves RN Unavailable Katharina Mac RESISTOR TESTING MACHINE OPERATOR Unavailable Tree Ruiz MD PhD Unavailable [phone] Oanh Trevizo RESISTOR TESTING MACHINE OPERATOR Unavailable Oanh Trevizo RESISTOR TESTING MACHINE OPERATOR Unavailable Encounter Details Date Type Department Care Team (Latest Contact Info) Description 10/05/2022 Orders Only [facility] Berenice Olivares, RN [address] [facility] [address] [place], [place] [id number] Social History Tobacco Use Types Packs/Day Years [...] on file 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 Gender Identity Male 11/05/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 Sexual Orientation Not on file documented as of this encounter Plan of Treatment Not on file documented as of this encounter Procedures Procedure Name Priority Date/Time Associated Diagnosis Comments SCAN - LABS 10/05/2022 documented in this encounter Results * SCAN - LABS (10/05/2022) us Berenice Olivares RN Final Result documented in this encounter Visit Diagnoses Not on filedocumented in this encounter Care Teams Railroad Operator Relationship Specialty Start Date End Date Cheo Potts MD [address] [place] [address] PCP - General 01/03/17 Neftaly Portillo MD [address] [facility] [address] [address] [place] [address] Consulting Physician Cardiology 11/15/18 Tree Ruiz MD PhD [address] [facility] [address] [place] [address] Referring Physician Cardiology 12/10/20 11/20/23 Katharina Mac NP [address] [facility] [address] [place] [address] Referring Physician Cardiology 12/10/20 11/20/23 Qi Norris MD [address] [facility] [address] [place] [address] Referring Physician Gastroenterology 05/10/23 Yuly Nieves RN [address] [address] SHOP Outpatient Electroformer 09/22/23 10/18/23 Katharina Mac, [place] [address] [address] Nurse Practitioner Cardiology 11/21/23 Tree Ruiz MD PhD [address] [facility] [address] [place] [address] Consulting Physician Cardiology 11/21/23 [place] [address] [address] Nurse Practitioner Orthodontic Assistant 07/18/24 [place] [address] [address] Nurse Practitioner Orthodontic Assistant 09/18/24 documented as of this encounter
== END 2024-11-11 12:11 | disposition home or self-care (01) ==
LOC: ANHLAB 12:11
PROVIDERS: PCP Family Medicine; Visit Provider Family Medicine
DX: I11.0 Hypertensive heart disease with heart failure (principal); I50.9 Heart failure, unspecified
CPT/HCPCS: 36415; 80053

== ENCOUNTER 2024-12-31 16:54 | Outpatient (CLI) | payer MEDICARE, SELFPAY ==
[2024-12-31 17:27] LABS: Add Urine Microscopic? NO; Appearance Urine Clear (Clear); Bilirubin Urine Negative (Negative); Blood Urine Negative (Negative); Color Urine Yellow (Yellow); Glucose Urine UA 3+ mg/dL (Negative); Ketones Urine Negative (Negative); Leukocyte Esterase Ur Negative LEU/UL (Negative); Nitrate Urine Negative (Negative); Protein Urine Negative (Negative); Specific Grav Ur 1.013 (1.001-1.035); pH Urine 6.5 (5.0-9.0)
[2024-12-31 17:28] LABS: Basophils Absolute Auto 0.1 K/mm3 (0.0-0.1); Basophils Percent Auto 0.5 % (0.2-1.2); Eosinophils Absolute Auto 0.1 K/mm3 (0-0.3); Eosinophils Percent Auto 0.6 % (0-4.4); Hematocrit 42.7 % (42.0-52.0); Hemoglobin 14.1 g/dL (14.0-18.0); Immature Granulocyte Absolute 0.04 K/mm3 (0.00-0.031); Immature Granulocyte Percent A 0.4 % (0-0.5); Lymphocytes Percent Auto 20.7 % (18.3-44.2); Mean Corpuscular Hemoglobin 30.8 pg (26-34); Mean Corpuscular Volume 93.2 fl (80-100); Mean Platelet Volume 8.3 fl (7.4-10.4); Neutrophils Absolute Auto 7.3 K/mm3 (1.3-6.7); Neutrophils Percent Auto 68.8 % (45.5-73.1); Platelet Count Result 226 k/mm3 (150-375); Red Blood Count 4.58 M/mm3 (4.6-6.20); Red Cell Distribution Width 13.7 % (11.5-14.5); White Blood Count 10.6 K/mm3 (4.5-10.0)
[2024-12-31 17:38] LABS: Alanine Aminotransferase 25 U/L (6-50); Albumin Level 4.1 g/dL (3.5-5.1); Alkaline Phosphatase 50 U/L (38-126); Anion Gap 8 mmol/L (4-12); Aspartate Amino Transferase 27 U/L (17-59); Bilirubin,Total 1.4 mg/dL (0.2-1.3); Blood Urea Nitrogen 16 mg/dL (9-20); Calcium 9.1 mg/dL (8.4-10.2); Carbon Dioxide 29 mmol/L (22-30); Chloride 93 mmol/L (98-107); Estimated Glomerular Filt Rate > 60; Glucose 81 mg/dL (65-110); Potassium 4.5 mmol/L (3.4-5.0); Sodium 130 mmol/L (137-145)
--- OUTSIDE RECORDS SUMMARY | 2024-12-31 17:41 | XMS_ITS | Referral Summary ---
Author Organization [facility] Address [address] [place] [address] Care Team Providers Care Apprentice/Lineman Name Role Phone Cheo Potts MD Primary Care Provider Neftaly Portillo MD Unavailable [phone] Qi Norris MD Unavailable [phone] Katharina Mac FRONT DESK COORDINATOR Unavailable [phone] Tree Ruiz MD PhD Unavailable [phone] Oanh Trevizo FRONT DESK COORDINATOR Unavailable [phone] Torin Almodovar MD Unavailable Encounters Date Type Department Care Team Description 12/31/2024 [facility] [id number] [place] [id number] Michelle Elliott 12/18/2024 Orders Only [facility] Cardiothoracic Surgery [facility] 8th Floor [address] Room [address] [place] [phone] Dorothea Dick MD Aneurysm of ascending aorta without rupture (Primary Dx) 12/18/2024 9:45 AM CDT Office Visit [facility] Cardiothoracic Surgery [facility] 8th Floor [address] Room [address] [place] [phone] Dorothea Dick MD Aneurysm of ascending aorta without rupture (Primary Dx) 12/06/2024 Results Follow-Up [facility] Cardiology [address] [facility] Office Building [address] [place] [address] Martinez Villanuevaannabella RAULNetta 12/03/2024 Results Follow-Up [facility] Cardiology [address] [facility] [address] [place] [phone] Zainab Francis NP 11/25/2024 Results Follow-Up [facility] [address] [facility] [address] [place] [phone] Zainab Francis NP 11/25/2024 11:30 AM CDT Ancillary Procedure [facility] [address] [facility] [address] [place] [address] Left ventricular dysfunction 11/25/2024 1:00 PM CDT Office Visit [facility] Orthopaedic Surgery [address] [facility] Office Building [address] [place] [address] Bell Smith PA Primary osteoarthritis of both knees (Primary Dx) 11/19/2024 1:00 PM CDT Office Visit [facility] Cardiology [address] [facility] [address] [place] [phone] Zainab Francis NP Palpitations (Primary Dx); Left ventricular dysfunction; Aneurysm of ascending aorta without rupture; Paroxysmal atrial fibrillation (HCC); Coronary artery disease involving [place] coronary artery of [place] heart without angina pectoris; Cardiomyopathy, unspecified type (HCC); Primary hypertension; Mixed hyperlipidemia; History of alcohol abuse; Obstructive sleep apnea syndrome 11/15/2024 Orders Only [facility] Cardiology [address] [place] [address] Office Building [address] [place] [address] Tree Ruiz MD PhD 11/13/2024 12:38 PM CDT - 11/13/2024 11:59 PM CDT Hospital Encounter [facility] [address] [place] [phone] Oanh Trevizo NP Spinal stenosis of lumbar region without neurogenic claudication (Primary Dx); Lumbar radiculopathy; Chronic midline low back pain without sciatica; Sacroiliitis; Primary hypertension Discharge Disposition: Discharge to home or self care 11/05/2024 10:30 AM WARP DYEING TENDER Telemedicine [facility] Neuro Sleep [address] [facility] 6th Floor [address] [place] [phone] Mauro Zamora MD Obstructive sleep apnea syndrome (Primary Dx); Paroxysmal atrial fibrillation (HCC); Left ventricular dysfunction 11/04/2024 3:20 PM WARP DYEING TENDER - 11/04/2024 11:59 PM WARP DYEING TENDER Hospital Encounter [facility] [address] [place] [address] Dorothea Dick MD Sinus of Valsalva aneurysm Discharge Disposition: Discharge to home or self care 10/30/2024 1:30 PM WARP DYEING TENDER Office Visit [facility] Cardiology [address] [place] [address] 8th [place] [address] [place] [phone] Johnna Navarrete NP Stenosis of carotid artery, unspecified laterality (Primary Dx) 10/30/2024 1:00 PM WARP DYEING TENDER Ancillary Procedure [facility] Cardiology [address] [place] [address] 8th [place] [address] [place] [phone] Cardiomyopathy, unspecified type (HCC) (Primary Dx); Fitting and adjustment of cardiac pacemaker from Last 3 Months Allergies Active Allergy Reactions Criticality Noted Date Comments Celecoxib Other (See comments) Low Altered depth perception Ciprofloxacin Muscle pain,Other (S ee comments) Medium 12/06/2017 Muscle weakness FEELS BAD Latex Rash,Itching Medium 04/11/2017 Medications calcium carbonate-vitami n D3 1,500 mg (600mg elemental) -800 unit per tabletIndication s:Hypocalcemia Prevention,Preve ntion of Vitamin D Deficiency 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 mouth office clerk assistant 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 Active coenzyme Q10 200 mg capsuleIndicatio ns:supplement Take 1 capsule (200 mg total) by mouth nightly Active magnesium oxide 200 mg tablet,chewableI ndications:suppl ement Take 200 mg by mouth office clerk assistant 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 Active polyethylene glycol (MIRALAX) 17 gram packetIndication s:constipation Take 1 packet (17 g total) by mouth nightly Active multivitamin no.44-vit D3-K 1,000-800 unit-mcg capsuleIndicatio ns:Mineral Deficiency Prevention,Vitam in Deficiency Prevention 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 mouth office clerk assistant 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 Active azelastine (ASTELIN) 137 mcg (0.1 %) nasal sprayIndications :Seasonal Allergic Rhinitis Administer 2 sprays into each nostril nightly 1 Active fluocinolone in oil (DermOtic) 0.01 % dropsIndications :ear inflammation Administer 5 drops into each ear daily as needed (ear inflammation) 1 Active prochlorperazine (COMPAZINE) 10 mg tabletIndication s:Nausea and Vomiting Take 1 tablet (10 mg total) by mouth every 6 (six) hours as needed for nausea or vomiting for nausea 2 Active finasteride (PROSCAR) 5 mg tabletIndication s:benign prostatic hyperplasia with lower urinary tract sx Take 1 tablet (5 mg total) by mouth office clerk assistant 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 2 Active sucralfate (CARAFATE) 1 gram tabletIndication s:Maintenance of Healing Gastric Ulcer Take 1 tablet (1 g total) by mouth 3 (three) times a day 3 Active cholecalciferol 400 unit capsuleIndicatio ns:supplement Take 200 Units by mouth every other day Active loratadine 10 mg capsuleIndicatio ns:Allergic Rhinitis Take 10 mg by mouth every evening Active acetaminophen (TYLENOL ARTHRITIS PAIN ORAL) Take 2 tablets by mouth nightly Active ketoconazole (NIZORAL) 2 % cream 4 Active mupirocin (BACTROBAN) 2 % ointment daily as needed 4 Active triamcinolone (KENALOG) 0.1 % cream 4 Active Anucort-HC 25 mg suppository as needed 4 Active atorvastatin (LIPITOR) 20 mg tablet Take 1 tablet (20 mg total) by mouth nightly 90 tablet 3 4 025 Active sacubitriL-valsa rtan (ENTRESTO) 24-26 mg tabletIndication s:chronic heart failure 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 mouth 2 (two) times a day 28 tablet 4 Active dapagliflozin propanediol (FARXIGA) 10 mg tablet Take 1 tablet (10 mg total) by mouth daily 90 tablet 3 5 01/08/2 026 Active turmeric root extract 500 mg capsule Take by mouth Active omeprazole (PriLOSEC) 40 mg capsule Take 1 capsule (40 mg total) by mouth daily 5 Active gabapentin (NEURONTIN) 100 mg capsuleIndicatio ns:Restless Legs Syndrome Take 1 capsule (100 mg total) by mouth 3 (three) times a day 90 capsule 11 5 026 Active busPIRone (BUSPAR) 5 mg tablet Take 1 tablet (5 mg total) by mouth 2 (two) times a day 4 Active sotaloL (BETAPACE) 120 mg tablet Take 1 tablet (120 mg total) by mouth 2 (two) times a day 180 tablet 3 5 026 Active traMADoL (ULTRAM) 50 mg tabletIndication s:Lumbar radiculopathy,DD D (degenerative disc disease), lumbar,Lumbar stenosis with neurogenic claudication Take 1 tablet (50 mg total) by mouth 3 (three) times a day as needed for pain 90 tablet 5 Active spironolactone (ALDACTONE) 25 mg tablet Take 0.5 tablets (12.5 mg total) by mouth daily Taking half of pill right now 12.5 daily 15 tablet 11 5 Active busPIRone (BUSPAR) 15 mg tabletIndication s:Generalized Anxiety Disorder Take 5 mg by mouth 2 (two) times a day 0 025 Discontin ued(Dupli aram order) Hospital, Clinic, or Other Facility Administered Medication Ordered Dose Route Frequency Start Date End Date Status perflutren protein-a (OPTISON) 3 mL in sodium chloride 0.9% 8 mL syringe 1 - 8 mL IV Once in imaging 11/25/2024 Active Active Problems Problem Noted Date Diagnosed Date Neck pain, chronic 02/07/2024 Presence of Watchman left atrial appendage closu re device 09/20/2023 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 06/13/2023 GI bleeding 02/08/2023 Lumbar facet arthropathy 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 3 Lumbar radiculopathy 09/13/2022 Chronic midline low back pain without sciatica 0 09/13/2022 DDD (degenerative disc disease), lumbar 09/13/19 23 Sacroiliitis 09/13/2022 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 Chronic idiopathic constipation 07/16/2021 Hepatomegaly 07/16/2021 History of alcohol abuse 07/16/2021 PAD (peripheral artery disease) 02/26/2019 Coronary artery disease invo lving [place] coronary artery of [place] heart without angina pectoris 01/30/2019 Overview (01/30/2019): Added automatically from request for surgery [id number] Abnormal EKG 01/30/2019 Overview (01/30/2019): Added automatically from request for surgery [id number] Sick sinus syndrome 04/20/2018 Overview (04/20/2018): Added automatically from request for surgery [id number] Assessment & Plan (04/27/2018 8:59 AM CDT): [...] 07/03/2012 Ascending aortic aneurysm 07/03/2012 Atrial fibrillation ([facility]) 01/23/2008 Referred otalgia 03/15/2007 Inguinal hernia 04/19/2005 [...] Passive Smoke Exposure: Past Smokeless Tobacco: Never Alcohol Use Standard Drinks/Week Comments Yes 7 (1 standard drink = 0.6 oz pur e alcohol) [facility] Utilities Answer Date Recorded In the past 12 months has th e [employer], gas, oil, or water company threatened to [...] often do you attend chur ch or roman catholic services? Never 09/22/2023 Do you belong to any clubs o r organizations such as scientology groups, unions, fraternal or athletic groups, or [...] place to sleep or slept in a skilled nursing (including now)? No 09/22/2023 Personal Safety Answer Date Recorded Have you ever been in or are you currently in a harmful physical or emotional relationship or is someone making you feel afraid or unsafe? Denies 09/20/2023 Sex and Gender Information Value Date Recorded Sex Assigned at Not on file Legal Sex Male 3:18 AM WARP DYEING TENDER Gender Identity Male 11/05/2020 12:05 PM WARP DYEING TENDER Sexual Orientation Not on file Last Filed Vital Signs Vital Sign Reading Time Taken Comments Blood Pressure 119/79 12/18/2024 9:53 AM CDT Pulse 84 12/18/2024 9:53 AM CDT Temperature 36.7 C (98.1 F) 11/19/2024 12:53 PM CDT Respiratory Rate 18 11/13/2024 12:55 PM CDT Oxygen Saturation 98% 12/18/2024 9:53 AM CDT Inhaled Oxygen Concentration - - Weight 82 kg (180 lb 12.8 oz) 12/18/2024 9:53 AM CDT Height 175.3 cm (5' 9 ) 12/18/2024 9:53 AM CDT Body Mass Index 26.7 12/18/2024 9:53 AM CDT Plan of Treatment Not on file Medical Devices Implanted Type Area Examination Proctor Device Identifier Shelf Expiration Date Model / Serial / Lot Medtronic Cardiac Rhythm Mgmt 5076-52 Capsurefix Novus 6.2fr 2mm 52cm Bipolar Screw In Implantable Latex Free - [id number] - [id number] Implanted:Qty: 1 on 04/24/2018 by Osmany Pina MD at [facility] Pacemaker Left: Heart Medtronic Cardiac Rhythm Mgmt [id number] 03/08/2020 5076-52 / [id number] / Medtronic Cardiac Rhythm Mgmt 5076-45 Capsurefix Novus Od6.2 Fr; Odsec2 Mm L45 Cm Bipolar; Screw In; Im - [id number] - [id number] Implanted:Qty: 1 on 04/24/2018 by Osmany Pina MD at [facility] Pacemaker Left: Heart Medtronic Cardiac Rhythm Mgmt [id number] 02/13/2020 5076-45 / [id number] / Medtronic Inc [id number] Attain Performa Starfix 5.3fr 5.1fr 88cm Quadripolar Is4-Llll Latex Free - [id number] - [id number] Implanted:Qty: 1 on 04/24/2018 by sOmany Pina MD at [facility] Pacemaker Left: Heart Medtronic Inc 02/15/2020 [id number] / [id number] / Pacemaker Cardiac 11mm 19.9cu Cm 46.5x59mm Rain Surescan - [id number] - [id number] Implanted:Qty: 1 on 04/24/2018 by Osmany Pina MD at [facility] Pacemaker Left: Chest Medtronic Inc 06/17/2019 [id number] / [id number] / [employer] Device Clsr Perclose Prostyle Sut-Mediatd Closure-Repair Sys 29531-57 - [id number] - [id number] Implanted:Qty: 1 on 09/20/2023 by Antoine Nelson MD at [facility] Vascular Closure Device N/A: Femoral Vein [employer] 05/04/2025 14433-25 / [id number] / [id number] Procedures Procedure Name Priority Date/Time Associated Diagnosis Comments BASIC METABOLIC PANEL Routine 12/05/2024 12:13 PM CDT Coronary artery disease involving [place] coronary artery of [place] heart without angina pectoris Palpitations CO ARTHROCENTESIS ASPIR&/INJ MAJOR JT/BURSA W/O US Routine 11/25/2024 1:00 PM CDT Primary osteoarthritis of both knees TRANSTHORACIC ECHO (TTE) COMPLETE W DOPPLER/CF WO CONTRAST Routine 11/25/2024 12:41 PM CDT Left ventricular dysfunction CBC WITH AUTO DIFFERENTIAL Routine 11/22/2024 12:30 PM CDT Coronary artery disease involving [place] coronary artery of [place] heart without angina pectoris BASIC METABOLIC PANEL Routine 11/22/2024 12:30 PM CDT Coronary artery disease involving [place] coronary artery of [place] heart without angina pectoris ECG 12-LEAD Routine 11/19/2024 1:48 PM CDT Palpitations DEVICE CHECK - REMOTE Routine 11/15/2024 9:36 PM CDT CTA CHEST W CONTRAST Schedule Routine, Read Routine (OP Routine) 11/04/2024 4:01 PM WARP DYEING TENDER Sinus of Valsalva aneurysm POCT CREATININE - DEVICE Routine 11/04/2024 3:40 PM WARP DYEING TENDER DEVICE CHECK - IN OFFICE Routine 10/30/2024 12:42 PM WARP DYEING TENDER Cardiomyopathy, unspecified type (HCC) Fitting and adjustment of cardiac pacemaker CTA ABDOMINAL AORTA AND BILATERAL ILIOFEMORAL RUNOFF Schedule Routine, Read Routine (OP Routine) 02/18/2019 3:29 PM CDT Abnormal ankle brachial index (ODALIS) Pain in both lower extremities from Last 3 Months or Most Recently Relevant to Health Maintenance Results * (ABNORMAL) Basic metabolic panel (12/05/2024 12:13 PM CDT) Glucose 63(L) 65 - 99 mg/dL ConverserGeovanna Smith Comment: Fasting reference interval BUN 15 7 - 25 mg/dL ConverserGeovanna Smith Creatinine 0.73 0.70 - 1.22 mg/dL Nat Smith eGFR 91 > OR = 60 mL/min/1.7 3m2 Nat Smith BUN/creat ratio SEE NOTE: 6 - 22 (calc) Nat Smith Comment: Not Reported: BUN and Creatinine are within reference range. Sodium 131(L) 135 - 146 mmol/L Nat Smith Potassium, pl 4.3 3.5 - 5.3 mmol/L Nat Smith Chloride 96(L) 98 - 110 mmol/L Nat Smith CO2 29 20 - 32 mmol/L Nat Smith Calcium 9.1 8.6 - 10.3 mg/dL Nat Smith Blood 12/05/2024 12:1 3 PM CDT 12/05/2024 12:13 PM CDT us Zainab Francis FRONT DESK COORDINATOR LAB BLOOD ORDERABLES Final Re sult Performing Organization Address City/State/[facility] Co de Phone Number NAT Nat Smith [address] [place] [address] * CO ARTHROCENTESIS ASPIR&/INJ MAJOR JT/BURSA W/O US (11/25/2024 1:00 PM CDT) Narrative Bell Smith PA - 11/25/2024 1:00 PM CDT Bell Smith PA 11/25/2024 3:10 PM Large Joint Injection: bilateral knee Performed by: Bell Smith PA Authorized by: Bell Smith PA Large Joint Injection/Aspiration: Consent Given by: Patient Site marked: the procedure site was marked Verbal consent obtained: Yes Supporting Documentation: Indications: Pain Procedure Details: Location: Knee Site: Bilateral knee Prep: patient was prepped and draped in usual sterile fashion Prep: patient was prepped using a clean technique Needle gauge: 18g needle on right, 21g needle on the left. Approach: Superior lateral Ultrasound guided: No Fluroscopic guidance: No Medications Right Large Joint Injection: 4 mL BUPivacaine HCl 0.25 % (2.5 mg/mL); 80 mg triamcinolone 40 mg/mL Medications Left Large Joint Injection: 4 mL BUPivacaine HCl 0.25 % (2.5 mg/mL); 80 mg triamcinolone 40 mg/mL Patient tolerance: Patient tolerated the procedure well with no immediate complications us Blel HUYNH IN CLINIC/BEDSIDE OR DERABLES Final Result * TRANSTHORACIC ECHO (TTE) COMPLETE W DOPPLER/CF WO CONTRAST (11/25/2024 12:41 PM CDT) Anatomical Region Laterality Modality Ultrasound 11/25/2024 12:0 3 PM CDT Narrative 12/02/2024 11:23 PM CDT [facility] Card[facility] Diagnostic Lab [address] [place] [address] Transthoracic Echocardiographic Report Patient Name: DONALD FATIMA MI : 1940 (84y 7m) Gender: M Study Date: 11/25/2024 12:03:57 PM Ht(Inch): 69 Wt(Lb): 182.1 BSA: 2.01 Inspector Soldering: Francisca Sánchez RDCS Location: [facility] Heart Rate: 74 BMI: 26.89 BP: 100 / 59 Ref Provider: PROCEDURES: Echocardiographic Report: Transthoracic complete echo with strain imaging, 2D, spectral and tissue Doppler, color flow Doppler, M-mode. INDICATIONS: LV Dysfunction, Aortic aneurysm, thoracic, and I51.9 Heart disease, unspecified. CONCLUSIONS: 1. Concentric LV remodeling. Normal left ventricular systolic function. The Ejection Fraction (Manzo's) is measured at 52 %. Grade I diastolic dysfunction (normal LA pressure). The average global longitudinal strain is abnormal. 2. There are no LV regional wall motion abnormalities. 3. Normal right ventricular size. Normal right ventricular systolic function. 4. Mitral valve leaflets appear mildly thickened. Mild calcification. Mild mitral valve regurgitation. The mean transmitral gradient is: 0 mmHg. 5. Trileaflet aortic valve. Mildly thickened aortic valve leaflets. Mild aortic valve regurgitation. No aortic valve stenosis. The mean transaortic gradient is 2 mmHg. The aortic valve area by the continuity equation (using VTI) is 3.23 cm2. Aortic valve dimensionless index is 0.87. 6. Mild tricuspid regurgitation.No TS noted. ATTESTATION: I have personally reviewed and interpreted this study without fellow or resident. - DISCLAIMER: The study images and the final report will be retained in the patient chart by the Echo Laboratory for the legally required time period. This chart constitutes the legal record of any testing performed. FINDINGS: Left Ventricle: Normal left ventricular size based on volume index. Concentric LV remodeling. Normal left ventricular systolic function. The Ejection Fraction (Manzo's) is measured at 52 %. Grade I diastolic dysfunction (normal LA pressure). The average global longitudinal strain is abnormal. The LV global strain is: -14.4 %. Regional Wall Motion: There are no LV regional wall motion abnormalities. Right Ventricle: Normal right ventricular size. Normal right ventricular systolic function. Left Atrium: The left atrium is normal in size. The left atrium is normal in size. Right Atrium: The right atrium is normal in size. Atrial Septum: Normal interatrial septum. Mitral Valve: Mitral valve leaflets appear mildly thickened. Mild calcification. Mild mitral valve regurgitation. The mean transmitral gradient is: 0 mmHg. Aortic Valve: Trileaflet aortic valve. Mildly thickened aortic valve leaflets. Mild aortic valve regurgitation. No aortic valve stenosis. The mean transaortic gradient is 2 mmHg. The aortic valve area by the continuity equation (using VTI) is 3.23 cm2. Aortic valve dimensionless index is 0.87. Tricuspid Valve: Tricuspid valve is not well visualized due to 19+RA. Mildly thickened tricuspid valve. Mild tricuspid regurgitation.No TS noted. Pulmonic Valve: Normal pulmonic valve structure. No pulmonic regurgitation. Pericardium: Normal pericardium without pericardial effusion. No pericardial effusion. Aorta: Normal aortic root. Severe aortic root dilation. Dilation of the aortic root when indexed. IVC: IVC is normal in size. MEASUREMENTS: 2D/MM Value Range Doppler Value Range LVIDd 2D 4.23 cm [ 4.20 - 5.80 ] AV Peak Gil 1.0 m/s [ 1.0 - 1.7 ] LVIDs 2D 2.87 cm [ 2.50 - 4.00 ] AV Peak PG 4.00 mmHg IVSd 2D 0.95 cm [ 0.60 - 1.00 ] AV Mean PG 2 mmHg LVPWd 2D 0.96 cm [ 0.60 - 1.00 ] AV VTI 17.9 cm LV Thickness Ratio 1.0 LVOT Peak Gil 0.9 m/s [ 0.7 - 1.1 ] LV FS 2D 32.14 % [ 25.00 - 43.00 ] LVOT Peak PG 3.24 mmHg LV Mass 2D 132.64 g LVOT Mean PG 2 mmHg LV Mass Index 2D 65.99 g/m2 LVOT VTI 15.5 cm RWT 0.45 LVOT Diam 2.18 cm EDV Mod BP 96.70 ml [ 62.00 - 150.00 ] HERNANDO VTI 3.23 cm2 LV EDV Index 48.11 ml/m2 LVOT/AV VTI 0.87 - Dimensionless index (DVI) ESV Mod BP 46.39 ml [ 21.00 - 61.00 ] AI Peak Gil 3.4 m/s EF Mod BP 52 % [ 52 - 72 ] AI Peak PG 47 mmHg LV GLS -14.4 % [ -25.0 - -18.0 ] AI Decel Time 1820.55 sec LA Length 4C 4.17 cm AI Decel Orange 1.91 m/s2 LA Length 2C 4.69 cm AI PHT 527.96 msec LA Volume BP 45.23 ml MV E Peak Gil 0.4 m/s [ 0.6 - 1.3 ] LA Volume Index 22.50 ml/m2 [ 16.00 - 34.00 ] MV A Peak Gil 0.5 m/s [ 1.0 - 1.2 ] MV Annulus 2D 3.31 cm MV E/A 0.8 ratio [ 0.8 - 1.5 ] RV Base Dimen 2D 3.8 cm [ 2.5 - 4.2 ] MV Peak Gil 0.4 m/s TAPSE 2.33 cm [ 1.71 - 5.00 ] MV Peak PG 0.64 mmHg RA Volume 32.81 ml MV Mean PG 0 mmHg RA Volume Index 16.32 ml/m2 MV VTI 8.8 cm AoR Diam 2D 4.95 cm [ 3.10 - 3.70 ] MV Decel Time 226.67 msec [ 104.00 - 258.00 ] Ao Root Index 2.46 cm/m2 [ 1.00 - 2.00 ] Med E` Gil 6.2 cm/sec [ 8.0 - 25.0 ] Lat E` Gil 8.7 cm/sec [ 10.0 - 25.0 ] Average E/E` 5.37 RV S` 12.55 cm/sec TR Peak Gil 2.2 m/s [ 1.0 - 2.8 ] TR Peak PG 19.4 mmHg PV Peak Gil 1.0 m/s [ 0.4 - 0.8 ] PV Peak PG 4.00 mmHg PI Peak Gil 1.4 m/s PI ED Gil 79.27 m/sec PI Peak PG 8 mmHg PI PHT 360.97 sec Electronically Signed By: Neftaly Portillo MD 12/02/2024 11:23:49 PM CDT Procedure Note Neftaly Portillo MD - 12/02/2024 [facility] Cardiac Diagnostic Lab [address], [address] [place] [address] Transthoracic Echocardiographic Report Patient Name: DONALD FATIMA MI : 1940 (84y 7m) Gender: M Study Date: 11/25/2024 12:03:57 PM Ht(Inch): 69 Wt(Lb): 182.1 BSA: 2.01 Inspector Soldering: Francisca Sánchez RDCS Location: [facility] Heart Rate: 74 BMI: 26.89BP: 100 / 59 Ref Provider: PROCEDURES: Echocardiographic Report: Transthoracic complete echo with strain imaging,2D, spectral and tissue Doppler, color flow Doppler, M-mode. INDICATIONS: LV Dysfunction, Aortic aneurysm, thoracic, and I51.9 Heart disease,unspecified. CONCLUSIONS: 1. Concentric LV remodeling. Normal left ventricular systolic function.The Ejection Fraction (Manzo's) is measured at 52 %. Grade I diastolic dysfunction(normal LA pressure). The average global longitudinal strain is abnormal. 2. There are no LV regional wall motion abnormalities. 3. Normal right ventricular size. Normal right ventricular systolicfunction. 4. Mitral valve leaflets appear mildly thickened. Mild calcification. Mildmitral valve regurgitation. The mean transmitral gradient is: 0 mmHg. 5. Trileaflet aortic valve. Mildly thickened aortic valve leaflets. Mildaortic valve regurgitation. No aortic valve stenosis. The mean transaortic gradient is2 mmHg. The aortic valve area by the continuity equation (using VTI) is 3.23 cm2.Aortic valve dimensionless index is 0.87. 6. Mild tricuspid regurgitation.No TS noted. ATTESTATION: I have personally reviewed and interpreted this study without fellow orresident. - DISCLAIMER: The study images and the final report will be retained in the patientchart by the [facility] for the legally required time period. This chart constitutesthe legal record of any testing performed. FINDINGS: Left Ventricle: Normal left ventricular size based on volume index.Concentric LV remodeling. Normal left ventricular systolic function. The EjectionFraction (Manzo's) is measured at 52 %. Grade I diastolic dysfunction (normal LA pressure).The average global longitudinal strain is abnormal. The LV global strain is: -14.4%. Regional Wall Motion: There are no LV regional wall motionabnormalities. Right Ventricle: Normal right ventricular size. Normal right ventricularsystolic function. Left Atrium: The left atrium is normal in size. The left atrium is normalin size. Right Atrium: The right atrium is normal in size. Atrial Septum: Normal interatrial septum. Mitral Valve: Mitral valve leaflets appear mildly thickened. Mildcalcification. Mild mitral valve regurgitation. The mean transmitral gradient is: 0 mmHg. Aortic Valve: Trileaflet aortic valve. Mildly thickened aortic valveleaflets. Mild aortic valve regurgitation. No aortic valve stenosis. The mean transaorticgradient is 2 mmHg. The aortic valve area by the continuity equation (using VTI) is 3.23cm2. Aortic valve dimensionless index is 0.87. Tricuspid Valve: Tricuspid valve is not well visualized due to 19+RA.Mildly thickened tricuspid valve. Mild tricuspid regurgitation.No TS noted. Pulmonic Valve: Normal pulmonic valve structure. No pulmonicregurgitation. Pericardium: Normal pericardium without pericardial effusion. Nopericardial effusion. Aorta: Normal aortic root. Severe aortic root dilation. Dilation of theaortic root when indexed. IVC: IVC is normal in size. MEASUREMENTS: 2D/MM Value Range DopplerValue Range LVIDd 2D 4.23 cm [ 4.20 - 5.80 ] AV Peak Vel1.0 m/s [ 1.0 - 1.7 ] LVIDs 2D 2.87 cm [ 2.50 - 4.00 ] AV Peak PG4.00 mmHg IVSd 2D 0.95 cm [ 0.60 - 1.00 ] AV Mean PG2 mmHg LVPWd 2D 0.96 cm [ 0.60 - 1.00 ] AV VTI17.9 cm LV Thickness Ratio 1.0 LVOT Peak Vel0.9 m/s [ 0.7 - 1.1 ] LV FS 2D 32.14 % [ 25.00 - 43.00 ] LVOT Peak PG3.24 mmHg LV Mass 2D 132.64 g LVOT Mean PG2 mmHg LV Mass Index 2D 65.99 g/m2 LVOT VTI15.5 cm RWT 0.45 LVOT Diam2.18 cm EDV Mod BP 96.70 ml [ 62.00 - 150.00 ] HERNANDO VTI3.23 cm2 LV EDV Index 48.11 ml/m2 LVOT/AV VTI0.87 - Dimensionless index (DVI) ESV Mod BP 46.39 ml [ 21.00 - 61.00 ] AI Peak Vel3.4 m/s EF Mod BP 52 % [ 52 - 72 ] AI Peak PG47 mmHg LV GLS -14.4 % [ -25.0 - -18.0 ] AI Decel Alhl7804.55 sec LA Length 4C 4.17 cm AI Decel Slope1.91 m/s2 LA Length 2C 4.69 cm AI ZXD129.96 msec LA Volume BP 45.23 ml MV E Peak Vel0.4 m/s [ 0.6 - 1.3 ] LA Volume Index 22.50 ml/m2 [ 16.00 - 34.00 ] MV A Peak Vel0.5 m/s [ 1.0 - 1.2 ] MV Annulus 2D 3.31 cm MV E/A0.8 ratio [ 0.8 - 1.5 ] RV Base Dimen 2D 3.8 cm [ 2.5 - 4.2 ] MV Peak Vel0.4 m/s TAPSE 2.33 cm [ 1.71 - 5.00 ] MV Peak PG0.64 mmHg RA Volume 32.81 ml MV Mean PG0 mmHg RA Volume Index 16.32 ml/m2 MV VTI8.8 cm AoR Diam 2D 4.95 cm [ 3.10 - 3.70 ] MV Decel Qvwi691.67 msec [ 104.00 - 258.00 ] Ao Root Index 2.46 cm/m2 [ 1.00 - 2.00 ] Med E` Vel6.2 cm/sec [ 8.0 - 25.0 ] Lat E` Gil 8.7 cm/sec [ 10.0 - 25.0 ] Average E/E` 5.37 RV S` 12.55 cm/sec TR Peak Gil 2.2 m/s [ 1.0 - 2.8 ] TR Peak PG 19.4 mmHg PV Peak Gil 1.0 m/s [ 0.4 - 0.8 ] PV Peak PG 4.00 mmHg PI Peak Gil 1.4 m/s PI ED Gil 79.27 m/sec PI Peak PG 8 mmHg PI PHT 360.97 sec Electronically Signed By: Neftaly Portillo MD 12/02/2024 11:23:49 PM CDT us Zainab Francis NP CV ECHO PROCEDURES Final Resu lt * CBC with auto differential (11/22/2024 12:30 PM CDT) WBC 5.1 3.8 - 10.8 Thousand/u L [facility] RBC, POC 4.49 4.20 - 5.80 Million/uL [facility] Hgb 14.2 13.2 - 17.1 g/dL [facility] Hct 42.4 38.5 - 50.0 % [facility] MCV 94.4 80.0 - 100.0 fL [facility] MCH 31.6 27.0 - 33.0 pg [facility] MCHC 33.5 32.0 - 36.0 g/dL [facility] Comment: For adults, a slight decrease in the calculated MCHC value (in the range of 30 to 32 g/dL) is most likely not clinically significant; however, it should be interpreted with caution in correlation with other red cell parameters and the patient's clinical condition. Rdw 12.1 11.0 - 15.0 % [facility] Platelets 279 140 - 400 Thousand/u L [facility] MPV 8.9 7.5 - 12.5 fL [facility] Neutrophils, abs 2,392 1,500 - 7,800 cells/uL [facility] Lymphocytes, abs 2,035 850 - 3,900 cells/uL [facility] Monocyte abs 515 200 - 950 cells/uL [facility] Eosinophils, abs 97 15 - 500 cells/uL [facility] Basophils, abs 61 0 - 200 cells/uL [facility] Neutrophils 46.9 % [facility] Lymphocyte pct 39.9 % [facility] Monocytes 10.1 % [facility] Eosinophils 1.9 % [facility] Basophils 1.2 % [facility] Blood 11/22/2024 12:3 0 PM CDT 11/22/2024 12:30 PM CDT us Zainab Francis FRONT DESK COORDINATOR LAB BLOOD ORDERABLES Final Re sult [facility] [address] [place] [address] * (ABNORMAL) Basic metabolic panel (11/22/2024 12:30 PM CDT) [facility] Glucose 93 65 - 99 mg/dL [facility] Comment: Fasting reference interval BUN 11 7 - 25 mg/dL [facility] Creatinine 0.71 0.70 - 1.22 mg/dL [facility] eGFR 92 > OR = 60 mL/min/1.7 3m2 [facility] BUN/creat ratio SEE NOTE: 6 - 22 (calc) [facility] Comment: Not Reported: BUN and Creatinine are within reference range. Sodium 130(L) 135 - 146 mmol/L [facility] Potassium, pl 4.4 3.5 - 5.3 mmol/L Nat [facility] Chloride 95(L) 98 - 110 mmol/L Nat [facility] CO2 29 20 - 32 mmol/L Nat [facility] Smith Calcium 8.9 8.6 - 10.3 mg/dL Nat [facility] Blood 11/22/2024 12:3 0 PM CDT 11/22/2024 12:30 PM CDT Zainab Francis FRONT DESK COORDINATOR LAB BLOOD ORDERABLES Final Re sult [facility] [address] [place] [address] * ECG 12 lead (11/19/2024 1:48 PM CDT) Zainab Francis FRONT DESK COORDINATOR ECG ORDERABLES Final Result * DEVICE CHECK - REMOTE (11/15/2024 9:36 PM CDT) Anatomical Region Laterality Modality Other 11/15/2024 9:36 PM CDT Narrative 11/24/2024 8:10 PM CDT Interpretation Summary: Battery and Leads (BL) Less than 1 year of battery longevity noted Normal parameters noted on battery and lead(s) --- 7 months remaining longevity (implanted 2017). Lead impedance, sensing, and RA/RV threshold trends stable and appropriate. No short V-V intervals. Capture threshold chronically elevated --- LV threshold 3.25/0.4. Trend is chronically elevated. LV output is programmed Adaptive, currently 5.5/0.4. Presenting Rhythm (CO) Atrial Sensing-BiVentricular Pacing (-BiVP) --- /BVP 63 bpm. Arrhythmic events (AE) No new arrhythmic events in monitoring period --- Since 10/30/24: No AHR or VHR episodes. Transmission Information (TI) Device Summary Report Follow Up (FU) Patient's primary treating physician will be apprised of findings Procedure Note Tree Ruiz MD PhD - 11/24/2024 Interpretation Summary: Battery and Leads (BL) Less than 1 year of battery longevity noted Normal parameters noted on battery and lead(s) --- 7 months remaininglongevity (implanted 2017). Lead impedance, sensing, and RA/RVthreshold trends stable and appropriate. No short V-V intervals. Capture threshold chronically elevated --- LV threshold 3.25/0.4. Trendis chronically elevated. LV output is programmed Adaptive, currently5.5/0.4. Presenting Rhythm (CO) Atrial Sensing-BiVentricular Pacing (-BiVP) --- /BVP 63 bpm. Arrhythmic events (AE) No new arrhythmic events in monitoring period --- Since 10/30/24: No AHRor VHR episodes. Transmission Information (TI) Device Summary Report Follow Up (FU) Patient's primary treating physician will be apprised of findings Result [facility] Tree Ruiz MD PhD CV CARDIAC SERVICES PROCEDURES Final Result * CTA Chest W Contrast (11/04/2024 4:01 PM WARP DYEING TENDER) Anatomical Region Laterality Modality Chest N/A Computed Tomogra phy 11/04/2024 7:27 PM WARP DYEING TENDER Impressions 11/04/2024 7:27 PM WARP DYEING TENDER Stable dilatation of the aortic root measuring up to 49 mm, previously 49 mm. Electronically signed by: Iam Piper MD, PHD Narrative 11/04/2024 7:27 PM WARP DYEING TENDER EXAMINATION: CTA CHEST W CONTRAST HISTORY: Aortic [...] Result * POCT creatinine (11/04/2024 3:40 PM WARP DYEING TENDER) Creatinine POC 0.9 0.8 - 1.3 mg/dL Blood 11/04/2024 3:40 PM WARP DYEING TENDER 11/04/2024 3:40 PM WARP DYEING TENDER Dorothea Dick MD LAB POCT ORDERABLES - DEVICE Fin al Result Performing Organization Address City/State/[facility] Co de Phone Number [facility] Department [place] [address] * DEVICE CHECK - IN OFFICE (10/30/2024 12:42 PM WARP DYEING TENDER) Anatomical Region Laterality Modality Other 10/30/2024 2:00 AM WARP DYEING TENDER Narrative 11/08/2024 9:01 AM WARP DYEING TENDER Interpretation Summary: Battery and Leads (BL) Normal parameters identified on lead(s) Less than 1 year of battery longevity noted --- 8 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 to 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 Presenting Rhythm (CO) Atrial Pacing-BiVentricular Pacing (AP-BiVP) Arrhythmic events (AE) Nonsustained VT event(s) identified Anticoagulation (AC) Patient prescribed Apixaban (Eliquis) Patient on anticoagulant therapy Procedure Note Tree Ruiz MD PhD - 11/08/2024 Interpretation Summary: Battery and Leads (BL) Normal parameters identified on lead(s) Less than 1 year of battery longevity noted --- 8 months to 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 Presenting Rhythm (CO) Atrial Pacing-BiVentricular Pacing (AP-BiVP) Arrhythmic events (AE) Nonsustained VT event(s) identified Anticoagulation (AC) Patient prescribed Apixaban (Eliquis) Patient on anticoagulant therapy us Tree Ruiz MD PhD CV CARDIAC SERVICES PROCEDURES Final Result * CTA Abdominal Aorta And [...] arteries. Electronically signed by: Kumar Davenport M.D. Neftaly Portillo MD IM CT PROCEDURES Final Result from Last 3 Months or Most Recently Relevant to Health Maintenance Insurance MEDICARE [facility] MEDICARE SUPPLEMENT MEDICARE MEDICARE [facility] MEDICARE [facility] MEDICARE SUPPLEMENT MEDICARE [facility] MEDICARE SUPPLEMENT Advance Directives For more information, please contact: [phone] * Full Code (Latest Code Status on File) Date Activated Date Inactivated Comments 09/20/2023 6:27 PM 09/21/2023 7:45 PM * Full Code Date Activated Date Inactivated Comments 04/24/2018 5:50 PM 04/27/2018 2:46 PM * Full Code Date Activated Date Inactivated Comments 03/24/2018 11:24 PM 03/25/2018 4:51 PM Care Teams Apprentice/Lineman Relationship Specialty Start Date End Date Cheo Potts MD [address] [facility] [address] [place] [address] PCP - General 01/03/17 Neftaly Portillo MD [address] [facility] [address] [place] [address] Consulting Physician Cardiology 11/15/18 Qi Norris MD 2 [facility] [address] [place] [address] Referring Physician Gastroenterology 05/10/23 Katharina Mac NP 2 [facility] [address] [place] [address] Nurse Practitioner Cardiology 11/21/23 Tree Ruiz MD PhD [address] [address] Consulting Physician Cardiology 11/21/23 [place] [address] [address] Nurse Practitioner Inspector Boiler 09/18/24 [place] [address] [address] Consulting Physician Pain Management 11/13/24
--- OUTSIDE RECORDS SUMMARY | 2024-12-31 17:41 | XMS_ITS | Encounter Summary ---
Author Organization [facility] Healthcare Address [address] [place] [address] Care Team Providers Care Equine Breeder Name Role Phone Cheo Potts MD Primary Care Provider Neftaly Portillo MD Unavailable [phone] Qi Norris MD Unavailable [phone] Katharina Mac FRUIT PEELER Unavailable [phone] Tree Ruiz MD PhD Unavailable [phone] Oanh Trevizo FRUIT PEELER Unavailable [phone] Torin Almodovar MD Unavailable Encounter Details Date Type Department Care Team (Late st Contact Info) Description 12/31/2024 Telephone [facility] [address] [place] [address] Michelle Elliott Social History Tobacco Use Types Packs/Day Years Used Date Smoking Tobacco: Former Cigarettes Q uit: 1972 Passive Smoke Exposure: Past Smokeless Tobacco: Never Alcohol Use Standard Drinks/Week Comments Yes 7 (1 standard drink = 0.6 oz pur e alcohol) [facility] Utilities Answer Date Recorded In the past 12 months has [employer], gas, oil, or water company threatened to [...] often do you attend chur ch or islam services? Never 09/22/2023 Do you belong to [...] on file Legal Sex Male 3:[address] REPORTER Gender Identity Male 11/05/2020 12:[address] REPORTER Sexual Orientation Not on file documented as of this encounter Miscellaneous Notes * Telephone Encounter - EarlMichelle - 12/31/2024 9:26 AM CDT PT CALLED AND STATED HE HAD A SMALL SEIZURE LAST NIGHT. EMS CAME AND PICKED HIM UP BUT REFUSED TO GO TO THE HOSPITAL. HE STATED HE MISSED HIS AFTER DOSAGE OF TRAMADOL AND GABAPENTIN. HE IS WANTING A CALL BACK TO SEE IF HE SHOULD CONTINUE TAKING THESE MEDS THIS MORNING OR NOT. HE DOES HAVE A PCP APPOINTMENT THIS MORNING AND WOULD LIKE CALL BACK SOON POSSIBLE. documented in this encounter Plan of Treatment Not on file documented as of this encounter Visit Diagnoses Not on filedocumented in this encounter Care Teams Equine Breeder Relationship Specialty Start Date End Date Cheo Potts MD [address] [place] [address] PCP - General 01/03/17 Neftaly Portillo MD [address] [facility] [address] [place] [address] Consulting Physician Cardiology 11/15/18 Qi Norris MD 2 [facility] [address] [place] [address] Referring Physician Gastroenterology 05/10/23 Katharina Mac NP [address] [address] Nurse Practitioner Cardiology 11/21/23 Tree Ruiz MD PhD [address] [address] Consulting Physician Cardiology 11/21/23 [place] [address] [address] Nurse Practitioner Warp Placer 09/18/24 [place] [address] [address] Consulting Physician Pain Management 11/13/24 documented as of this encounter
--- OUTSIDE RECORDS SUMMARY | 2024-12-31 17:41 | XMS_ITS | Clinical Summary ---
Author Organization [facility] Address [address] [place] [address] Care Team Providers Care Block And Case Maker Name Role Phone Cheo Potts MD Primary Care Provider Neftaly Portillo MD Unavailable [phone] Qi Norris MD Unavailable [phone] Katharina Mac A&P TECHNICIAN Unavailable [phone] Tree Ruiz MD PhD Unavailable [phone] Oanh Trevizo A&P TECHNICIAN Unavailable Torin Almodovar MD Unavailable Allergies Active Allergy Reactions Criticality Noted Date Comments Celecoxib Other (See comments) Low Altered depth perception Ciprofloxacin Muscle pain,Other (S ee comments) Medium 12/06/2017 Muscle weakness FEELS BAD Latex Rash,Itching Medium 04/11/2017 Medications calcium carbonate-vitami n D3 1,500 mg (600mg elemental) -800 unit per tabletIndication s:Hypocalcemia Prevention,Preve ntion of Vitamin D Deficiency 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 mouth 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 Active coenzyme Q10 200 mg capsuleIndicatio ns:supplement Take 1 capsule (200 mg total) by mouth nightly Active magnesium oxide 200 mg tablet,chewableI ndications:suppl ement Take 200 mg by mouth 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 Active polyethylene glycol (MIRALAX) 17 gram packetIndication s:constipation Take 1 packet (17 g total) by mouth nightly Active multivitamin no.44-vit D3-K 1,000-800 unit-mcg capsuleIndicatio ns:Mineral Deficiency Prevention,Vitam in Deficiency Prevention 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 mouth 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 Active azelastine (ASTELIN) 137 mcg [...] 1 tablet (5 mg total) by mouth 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 2 Active sucralfate (CARAFATE) 1 [...] by mouth daily 90 tablet 3 5 026 Active turmeric root extract 500 mg [...] (two) times a day 0 025 Discontin ued(Mariza aram order) Hospital, Clinic, or Other Facility [...] GI bleeding 02/08/2023 Lumbar facet arthropathy 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 3 Lumbar radiculopathy 09/13/2022 Chronic midline low back pain without sciatica 0 09/13/2022 DDD (degenerative disc disease), lumbar 09/13/19 23 Sacroiliitis 09/13/2022 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 Chronic idiopathic constipation 07/16/2021 Hepatomegaly 07/16/2021 History of alcohol abuse 07/16/2021 PAD (peripheral artery disease) 02/26/2019 Coronary artery disease invo lving huslia coronary artery of huslia heart without angina pectoris 01/30/2019 Overview (01/30/2019): Added automatically from request for surgery [id number] Abnormal EKG 01/30/2019 Overview (01/30/2019): Added automatically from request for surgery [id number] Sick sinus syndrome 04/20/2018 Overview (04/20/2018): Added automatically from request for surgery [id number] Assessment & Plan (04/27/2018 8:59 AM CDT): [...] Resolved Date Nocturnal hypoxemia 02/26/2019 11/06/19 25 Encounters Date Type Department Care Team Description 12/31/2024 Telephone [facility] [address] [place] [address] Michelle Elliott 12/18/2024 9:45 AM CDT Office Visit [facility] Cardiothoracic Surgery [address] [facility] Advanced Medicine 8th Floor [address] Room [address] [place] [phone] Dorothea Dick MD Aneurysm of ascending aorta without rupture (Primary Dx) 12/18/2024 Orders Only [facility] Cardiothoracic Surgery [address] [facility] 8th Floor [address] Room [address] [address] Dorothea Dick MD Aneurysm of ascending aorta without rupture (Primary Dx) 12/06/2024 Results Follow-Up [facility] Cardiology [address] [facility] Medical Office Building [address] [place] [address] Mae Villanueva RMA 12/03/2024 Results Follow-Up [facility] Cardiology [address] [facility] [address] [place] [address] Zainab Francis NP 11/25/2024 1:00 PM CDT Office Visit [facility] Orthopaedic Surgery [address] [facility] Office Building [address] [place] [address] Bell Smith PA Primary osteoarthritis of both knees (Primary Dx) 11/25/2024 11:30 AM CDT Ancillary Procedure [facility] [address] [place] [address] [address] [place] [address] Left ventricular dysfunction 11/25/2024 Results Follow-Up [facility] Cardiology [address] [facility] [address] [place] [address] Zainab Francis NP 11/19/2024 1:00 PM CDT Office Visit [facility] Cardiology [address] [facility] [address] [place] [address] Zainab Francis NP Palpitations (Primary Dx); Left ventricular dysfunction; Aneurysm of ascending aorta without rupture; Paroxysmal atrial fibrillation (HCC); Coronary artery disease involving huslia coronary artery of huslia heart without angina pectoris; Cardiomyopathy, unspecified type (HCC); Primary hypertension; Mixed hyperlipidemia; History of alcohol abuse; Obstructive sleep apnea syndrome 11/15/2024 Orders Only [facility] Cardiology [facility] Building [address] [place] [address] Tree Ruiz MD PhD 11/13/2024 12:38 PM CDT - 11/13/2024 11:59 PM CDT Hospital Encounter [facility] [address] [place] [address] Oanh Trevizo NP Spinal stenosis of lumbar region without neurogenic claudication (Primary Dx); Lumbar radiculopathy; Chronic midline low back pain without sciatica; Sacroiliitis; Primary hypertension Discharge Disposition: Discharge to home or self care 11/05/2024 10:30 AM BDC MANAGER Telemedicine [facility] Neuro Sleep [address] [facility] 6th Floor [address] [place] [id number] Mauro Zamora MD Obstructive sleep apnea syndrome (Primary Dx); Paroxysmal atrial fibrillation (HCC); Left ventricular dysfunction 11/04/2024 3:20 PM BDC MANAGER - 11/04/2024 11:59 PM BDC MANAGER Hospital Encounter [facility] [address] [place] [address] Dorothea Dick MD Sinus of Valsalva aneurysm Discharge Disposition: Discharge to home or self care 10/30/2024 1:30 PM BDC MANAGER Office Visit [facility] Cardiology [address] [place] [address] Medicine 8th [place] [address] [place] [address] Johnna Navarrete NP Stenosis of carotid artery, unspecified laterality (Primary Dx) 10/30/2024 1:00 PM BDC MANAGER Ancillary Procedure [facility]iology [address] [place] [address] 8th [place] [address] [place] [address] Cardiomyopathy, unspecified type (HCC) (Primary Dx); Fitting and adjustment of cardiac pacemaker from Last 3 Months Immunizations Immunization Administration [...] disease Heart failure (HCC) Awareness under anesthesia durin g ablation Family History Medical History Relation Name [...] drink = 0.6 oz pur e alcohol) [facility] Utilities Answer Date Recorded In the past 12 months has th e electric, gas, oil, or water company [...] often do you attend chur ch or voodoo services? Never 09/22/2023 Do you belong to any clubs o r organizations such as anabaptist groups, unions, fraternal or athletic groups, or [...] place to sleep or slept in a fci (including now)? No 09/22/2023 Personal Safety Answer Date Recorded Have you ever been in or are you currently in a harmful physical or emotional relationship or is someone making you feel afraid or unsafe? Denies 09/20/2023 Sex and Gender Information Value Date Recorded Sex Assigned at Not on file Legal Sex Male 3:18 AM BDC MANAGER Gender Identity Male 11/05/2020 12:05 PM BDC MANAGER Sexual Orientation Not on file Obstetrics History [...] 12/18/2024 9:53 AM CDT Plan of Treatment Health Maintenance Due Date Last Done Comments Hepatitis B Screening 1958 Zoster Vaccine (1 of 2) 1992 Well Visit 65+ 2007 Pneumococcal vaccine 65+ (2 of 2 - PPSV23) 03/20/2015 01/23/2015, 01/23/2015 DTaP/Tdap/Td Vaccine (3 - Tdap) 02/26/2019 9, 05/05/1998 Depression Screening 09/13/2023 09/13/2022, 09/13/19 23 Covid-19 Vaccine (2023-10 5 season) 2024 07/04/2021, 10/14/2020 Influenza Vaccine (Season Ended) 2025 06/07/2023, 05/31/2021, 05/31/2021, Additional history exists Fall Risk Assessment 11/13/2025 11/13/2024 Abdominal Aortic Aneurysm (A AA) Screen Completed 05/18/2021, 02/18/2019 Medical Devices Implanted Type Area Investment Trader Device Identifier Shelf Expiration Date Model / Serial / Lot Medtronic Cardiac Rhythm Mgmt 5076-52 Capsurefix Novus 6.2fr 2mm 52cm Bipolar Screw In Implantable Latex Free - [id number] - [id number] Implanted:Qty: 1 on 04/24/2018 by Osmany Pina MD at [facility] Pacemaker Left: Heart Medtronic Cardiac Rhythm Mgmt [id number] 03/08/2020 5076-52 / [id number] / Medtronic Cardiac Rhythm Mgmt 5076-45 Capsurefix Novus Od6.2 Fr; Odsec2 Mm L45 Cm Bipolar; Screw In; Im - [id number] - [id number] Implanted:Qty: 1 on 04/24/2018 by Osmany Pina MD at [facility] Pacemaker Left: Heart Medtronic Cardiac Rhythm Mgmt [id number] 02/13/2020 5076-45 / [id number] / Medtronic Inc [id number] Attain Performa Starfix 5.3fr 5.1fr 88cm Quadripolar Is4-Llll Latex Free - [id number] - [id number] Implanted:Qty: 1 on 04/24/2018 by Osmany Pina MD at [facility] Pacemaker Left: Heart Medtronic Inc 02/15/2020 [id number] / [id number] / Pacemaker Cardiac 11mm 19.9cu Cm 46.5x59mm Rain Surescan - [id number] - [id number] Implanted:Qty: 1 on 04/24/2018 by Osmany Pina MD at [facility] Pacemaker Left: Chest Medtronic Inc 06/17/2019 [id number] / [id number] / Moore V[employer] Device Clsr Perclose Prostyle Sut-Mediatd Closure-Repair Sys 63646-63 - [id number] - [id number] Implanted:Qty: 1 on 09/20/2023 by Antoine Nelson MD at [facility] Vascular Closure Device N/A: Femoral Vein [employer] 05/04/2025 00009-39 / [id number] / [id number] Procedures Procedure Name Priority Date/Time Associated Diagnosis Comments BASIC METABOLIC PANEL Routine 12/05/2024 12:13 PM CDT Coronary artery disease involving huslia coronary artery of huslia heart without angina pectoris Palpitations OR ARTHROCENTESIS ASPIR&/INJ MAJOR JT/BURSA W/O US Routine 11/25/2024 1:00 PM CDT Primary osteoarthritis of both knees TRANSTHORACIC ECHO (TTE) COMPLETE W DOPPLER/CF WO CONTRAST Routine 11/25/2024 12:41 PM CDT Left ventricular dysfunction CBC WITH AUTO DIFFERENTIAL Routine 11/22/2024 12:30 PM CDT Coronary artery disease involving huslia coronary artery of huslia heart without angina pectoris BASIC METABOLIC PANEL Routine 11/22/2024 12:30 PM CDT Coronary artery disease involving huslia coronary artery of huslia heart without angina pectoris ECG 12-LEAD Routine 11/19/2024 1:48 PM CDT Palpitations DEVICE CHECK - REMOTE Routine 11/15/2024 9:36 PM CDT CTA CHEST W CONTRAST Schedule Routine, Read Routine (OP Routine) 11/04/2024 4:01 PM BDC MANAGER Sinus of Valsalva aneurysm POCT CREATININE - DEVICE Routine 11/04/2024 3:40 PM BDC MANAGER DEVICE CHECK - IN OFFICE Routine 10/30/2024 12:42 PM BDC MANAGER Cardiomyopathy, unspecified type (HCC) Fitting and adjustment [...] CDT) Glucose 63(L) 65 - 99 mg/dL [facility] Smith Comment: Fasting reference interval BUN 15 7 - 25 mg/dL [facility] stephanie Smith Creatinine 0.73 0.70 - 1.22 mg/dL [facility] stephanie Smith eGFR 91 > OR = 60 mL/min/1.7 3m2 [facility] BUN/creat ratio SEE NOTE: 6 - 22 (calc) [facility] Smith Comment: Not Reported: BUN and Creatinine are within reference range. Sodium 131(L) 135 - 146 mmol/L [facility] ste[facility] Smith Potassium, pl 4.3 3.5 - 5.3 mmol/L [facility] stephanie Smith Chloride 96(L) 98 - 110 mmol/L [facility] CO2 29 20 - 32 mmol/L [facility] Calcium 9.1 8.6 - 10.3 mg/dL [facility] Blood 12/05/2024 12:1 3 PM CDT 12/05/2024 12:13 PM CDT us Zainab Francis A&P TECHNICIAN LAB BLOOD ORDERABLES Final Re sult [facility] [address] [place] [address] * OR ARTHROCENTESIS ASPIR&/INJ MAJOR JT/BURSA W/O US (11/25/2024 1:00 PM CDT) Narrative Bell Smith PA - 11/25/2024 1:00 PM CDT Bell Smiht PA 11/25/2024 3:10 PM Large Joint Injection: [...] PM CDT Narrative 12/02/2024 11:23 PM CDT [facility] Cardiac Diagnostic Lab [address] , [address] [place] [address] Transthoracic Echocardiographic Report Patient Name: DONALD FATIMA MI : 1940 (84y 7m) Gender: M Study Date: 11/25/2024 12:03:57 PM Ht(Inch): 69 Wt(Lb): 182.1 BSA: 2.01 Truck Rental Manager: Francisca Sánchez RDCS Location: [facility] Heart Rate: 74 BMI: 26.89 BP: 100 [...] LA Length 4C 4.17 cm AI Decel [place] 1.91 m/s2 LA Length 2C 4.69 cm [...] Procedure Note Neftaly Portillo MD - 12/02/2024 [facility] Cardiac Diagnostic Lab [address], [address] [place] [address] Transthoracic Echocardiographic Report Patient Name: DONALD FATIMA MI : 1940 (84y 7m) Gender: M Study Date: 11/25/2024 12:03:57 PM Ht(Inch): 69 Wt(Lb): 182.1 BSA: 2.01 Truck Rental Manager: Francisca Sánchez RDCS Location: [facility] Heart Rate: 74 BMI: 26.89BP: 100 / [...] [ -25.0 - -18.0 ] AI Decel [id number] sec LA Length 4C 4.17 cm AI Decel Slope1.91 m/s2 LA Length 2C 4.69 cm AI LSP050.96 msec LA Volume BP 45.23 ml MV [...] [ 3.10 - 3.70 ] MV Decel Qfbt959.67 msec [ 104.00 - 258.00 ] Ao [...] Neftaly Portillo MD 12/02/2024 11:23:49 PM CDT Zainab Francis A&P TECHNICIAN CV ECHO PROCEDURES Final Resu lt * CBC with auto differential (11/22/2024 12:30 PM CDT) WBC 5.1 3.8 - 10.8 Thousand/u L [facility] RBC, POC 4.49 4.20 - 5.80 Million/uL [facility] Hgb 14.2 13.2 - 17.1 g/dL [facility] Hct 42.4 38.5 - 50.0 % [facility] MCV 94.4 80.0 - 100.0 fL Deed MCH 31.6 27.0 - 33.0 pg [facility] MCHC 33.5 32.0 - 36.0 g/dL [facility] Comment: For adults, a slight decrease in the calculated MCHC value (in the range of 30 to 32 g/dL) is most likely not clinically significant; however, it should be interpreted with caution in correlation with other red cell parameters and the patient's clinical condition. Rdw 12.1 11.0 - 15.0 % Deed Platelets 279 140 - 400 Thousand/u L [facility] MPV 8.9 7.5 - 12.5 fL [facility] Neutrophils, abs 2,392 1,500 - 7,800 cells/uL [facility] Lymphocytes, abs 2,035 850 - 3,900 cells/uL [facility] Monocyte abs 515 200 - 950 cells/uL [facility] Eosinophils, abs 97 15 - 500 cells/uL [facility] Basophils, abs 61 0 - 200 cells/uL [facility] Neutrophils 46.9 % [employer] Lymphocyte pct 39.9 % [employer] Monocytes 10.1 % [employer] Eosinophils 1.9 % [employer] Basophils 1.2 % [employer] [facility] Blood 11/22/2024 12:3 0 PM CDT 11/22/2024 12:30 PM CDT Result [facility] Zainab Francis A&P TECHNICIAN LAB BLOOD ORDERABLES Final Re sult Performing Organization Address [facility] Co de Phone Number [facility] [address] [place] [address] * (ABNORMAL) Basic metabolic panel (11/22/2024 12:30 PM CDT) [facility] Glucose 93 65 - 99 mg/dL [facility] Comment: Fasting reference interval BUN 11 7 - 25 mg/dL [facility] Smith Creatinine 0.71 0.70 - 1.22 mg/dL [facility] eGFR 92 > OR = 60 mL/min/1.7 3m2 [facility] Smith BUN/creat ratio SEE NOTE: 6 - 22 (calc) [facility] Comment: Not Reported: BUN and Creatinine are within reference range. Sodium 130(L) 135 - 146 mmol/L [facility] Potassium, pl 4.4 3.5 - 5.3 mmol/L [facility] Chloride 95(L) 98 - 110 mmol/L [facility] CO2 29 20 - 32 mmol/L [facility] Calcium 8.9 8.6 - 10.3 mg/dL [facility] Blood 11/22/2024 12:3 0 PM CDT 11/22/2024 12:30 PM CDT Zainab Francis A&P TECHNICIAN LAB BLOOD ORDERABLES Final Re sult Performing Organization Address [facility]/ZIP Co de Phone Number [facility] [address] [place] [address] * ECG 12 lead (11/19/2024 1:48 PM CDT) Zainab Francis A&P TECHNICIAN ECG ORDERABLES Final Result * DEVICE CHECK [...] is programmed Adaptive, currently 5.5/0.4. Presenting Rhythm (OR) Atrial Sensing-BiVentricular Pacing (-BiVP) --- /BVP 63 [...] output is programmed Adaptive, currently5.5/0.4. Presenting Rhythm (OR) Atrial Sensing-BiVentricular Pacing (-BiVP) --- /BVP 63 bpm. Arrhythmic events (AE) No new arrhythmic events in monitoring period --- Since 10/30/24: No AHRor VHR episodes. Transmission Information (TI) Device Summary Report Follow Up (FU) Patient's primary treating physician will be apprised of findings Tree Ruiz MD PhD CV CARDIAC SERVICES PROCEDURES Final Result * CTA Chest W Contrast (11/04/2024 4:01 PM BDC MANAGER) Anatomical Region Laterality Modality Chest N/A Computed Tomogra phy 11/04/2024 7:27 PM BDC MANAGER Impressions 11/04/2024 7:27 PM BDC MANAGER Stable dilatation of the aortic root measuring up to 49 mm, previously 49 mm. Electronically signed by: Iam Piper MD, PHD Narrative 11/04/2024 7:27 PM BDC MANAGER EXAMINATION: CTA CHEST W CONTRAST HISTORY: Aortic [...] Result * POCT creatinine (11/04/2024 3:40 PM BDC MANAGER) Creatinine POC 0.9 0.8 - 1.3 mg/dL Blood 11/04/2024 3:40 PM BDC MANAGER 11/04/2024 3:40 PM BDC MANAGER Dorothea Dick MD LAB POCT ORDERABLES - DEVICE Fin al Result Performing Organization Address City/State/[facility] Co de Phone Number [facility] Department [place] [address] * DEVICE CHECK - IN OFFICE (10/30/2024 12:42 PM BDC MANAGER) Anatomical Region Laterality Modality Other 10/30/2024 2:00 AM BDC MANAGER Narrative 11/08/2024 9:01 AM BDC MANAGER Interpretation Summary: Battery and Leads (BL) Normal parameters identified on lead(s) Less than 1 year of battery longevity noted --- 8 months to EMERGENCY ROOM DOCTOR Presenting Rhythm (OR) Atrial Pacing-BiVentricular Pacing (AP-BiVP) Arrhythmic events (AE) Nonsustained VT event(s) identified Anticoagulation (AC) Patient prescribed Apixaban (Eliquis) Patient on anticoagulant therapy Procedure Note Tree Ruiz MD PhD - 11/08/2024 Interpretation Summary: Battery and Leads (BL) Normal parameters identified on lead(s) Less than 1 year of battery longevity noted --- 8 months to EMERGENCY ROOM DOCTOR Presenting Rhythm (OR) Atrial Pacing-BiVentricular Pacing (AP-BiVP) Arrhythmic events (AE) Nonsustained VT event(s) identified Anticoagulation (AC) Patient prescribed Apixaban (Eliquis) Patient on anticoagulant therapy Tree Ruiz MD PhD CV CARDIAC SERVICES [...] by: Kumar Davenport M.D. Neftaly Portillo MD IMG CT PROCEDURES Final Result from Last 3 Months or Most Recently Relevant to Health Maintenance Insurance MEDICARE [facility] MEDICARE SUPPLEMENT MEDICARE MEDICARE [facility] MEDICARE [facility] MEDICARE SUPPLEMENT MEDICARE [facility] MEDICARE SUPPLEMENT Advance Directives For more information, please contact: [phone] * Full Code (Latest Code Status on File) Date Activated Date Inactivated Comments 09/20/2023 6:27 PM 09/21/2023 7:45 PM * Full Code Date Activated Date Inactivated Comments 04/24/2018 5:50 PM 04/27/2018 2:46 PM * Full Code Date Activated Date Inactivated Comments 03/24/2018 11:24 PM 03/25/2018 4:51 PM Care Teams Block And Case Maker Relationship Specialty Start Date End Date Cheo Potts MD [address] [email or web address] [address] [place] [address] PCP - General 01/03/17 Neftaly Portillo MD [address] [facility] [address] [place] [address] Consulting Physician Cardiology 11/15/18 Qi Norris MD [address] [facility] [address] [address] Referring Physician Gastroenterology 05/10/23 Katharina Mac, DEBORA [address] [facility] [address] [address] Nurse Practitioner Cardiology 11/21/23 Tree Ruiz MD PhD 2 [facility] [address] [address] Consulting Physician Cardiology 11/21/23 [place] [address] [address] Nurse Practitioner Operations Director 09/18/24 [place] [address] [address] Consulting Physician Pain Management 11/13/24
--- OUTSIDE RECORDS SUMMARY | 2024-12-31 17:41 | XMS_ITS | Encounter Summary ---
Author Organization [facility] Address [address] [place] [address] Phone Care Team Providers Care Clerical And Administrative Workers Name Role Phone Cheo Potts MD Primary Care Provider Neftaly Portillo MD Unavailable [phone] Qi Norris MD Unavailable [phone] Katharina Mac DEFECT CUTTER Unavailable Tree Ruiz MD PhD Unavailable [phone] Oanh Trevizo DEFECT CUTTER Unavailable [phone] Torin Almodovar MD Unavailable Encounter Details Date Type Department Care Team (Late st Contact Info) Description 12/06/2024 Results Follow-Up [facility] Cardiology [address] [facility] Medical Office Building [address] [place] [address] Mae Villanueva RMA Social History Tobacco Use Types Packs/Day Years Used Date Smoking Tobacco: Former Cigarettes Q uit: 1972 Passive Smoke Exposure: Past Smokeless Tobacco: Never Alcohol Use Standard Drinks/Week Comments Yes 7 (1 standard drink = 0.6 oz pur e alcohol) [facility] Utilities Answer Date Recorded In the [...] often do you attend chur ch or yarsanism services? Never 09/22/2023 Do you belong to any clubs o r organizations such as latter-day groups, unions, fraternal or athletic groups, or [...] on file Legal Sex Male 3:18 AM LAY HEALTH ADVOCATE Gender Identity Male 11/05/2020 12:05 PM LAY HEALTH ADVOCATE Sexual Orientation Not on file documented as of this encounter Plan of Treatment Not on file documented as of this encounter Visit Diagnoses Not on filedocumented in this encounter Care Teams Clerical And Administrative Workers Relationship Specialty Start Date End Date Cheo Potts MD [address] [address] [facility] [address] [place] [address] PCP - General 01/03/17 Neftaly Portillo MD [address] [facility] [address] [place] [address] Consulting Physician Cardiology 11/15/18 Qi Norris MD [address] [address] Referring Physician Gastroenterology 05/10/23 Katharina Mac NP [address] [address] Nurse Practitioner Cardiology 11/21/23 Tree Ruiz MD PhD [address] [address] Consulting Physician Cardiology 11/21/23 [place] [address] [address] [facility] [address] [place] [address] Nurse Practitioner Rn Hemodialysis Charge 09/18/24 [place] [address] [address] [facility] [address] [place] [address] Consulting Physician Pain Management 11/13/24 documented as of this encounter
--- OUTSIDE RECORDS SUMMARY | 2024-12-31 17:41 | XMS_ITS | Clinical Summary ---
Author Organization [facility] Address [address] [place] [address] Care Team Providers Care Chair Spring Assembler Name Role Phone Cheo Potts MD Primary Care Provider [phone] Source Comments [facility],non-owned Affiliates and Associated Physician Practices is amultiple site organization consisting of ambulatory clinics and hospital sitesin [place], [place], [place] and [place]. This disclosure is being madepursuant to the Care Everywhere program and may not contain all information available regarding this patient. Last updated 18.[facility] Allergies Active Allergy Reactions Criticality Noted Date Comments Celecoxib Other Low 03/03/2011 Feels funny Altered depth perception Ciprofloxacin Other,Myalgias Medium 12/06/2017 FEELS BAD Muscle aches, weakness, Sep 2017 Muscle weakness FEELS BAD Latex Itching,Rash Medium 04/11/2017 Medications * Be aware that medications may not be up to date on this document. Alwaysverify current medications with the patient. atorvastatin (Lipitor) 20 MG tablet Take 1 (one) tablet by mouth at bedtime 4 025 Active azelastine (Astelin) 0.1 % nasal spray Standish 2 (two) sprays into each nostril once daily 4 Active busPIRone (Buspar) 15 MG tablet Take 0.5 (one-half) tablet by mouth 2 times daily 4 Active Coenzyme Q10 10 MG Take 200 mg by mouth once daily Active dapagliflozin propanediol (Farxiga) 10 MG tablet Take 1 (one) tablet by mouth once daily 4 026 Active finasteride (Proscar) 5 MG tablet Take 1 (one) tablet by mouth once daily Active Anucort-HC 25 MG suppository Insert 1 (one) suppository into the rectum 2 times daily as needed 4 Active polyethylene glycol 3350 (Miralax) 17 g packet Take 17 (seventeen) g by mouth at bedtime Active sacubitril-vals kvng (Entresto) 24-26 MG tablet Take 1 (one) tablet by mouth 2 times daily 4 Active sotalol (Betapace) 120 MG tablet Take 1 (one) tablet by mouth 2 times daily 4 Active spironolactone (Aldactone) 25 MG tablet Take 1 (one) tablet by mouth once daily 4 Active traMADol (Ultram) 50 MG tablet Take 1 (one) tablet by mouth 3 times daily as needed 4 Active omeprazole (PriLOSEC) 40 MG capsule Take 1 (one) capsule by mouth 2 times daily, 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 and supper 120 capsule 2 5 Active apixaban (Eliquis) 5 MG tablet Take 1 (one) tablet by mouth 2 times daily 3 025 Discontin ued(Tx Complete) Active Problems Problem Noted Date Diagnosed Date Presence of Watchman left atrial appendage closu re device 09/20/2023 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 06/13/2023 GI bleeding 02/08/2023 Lumbar facet arthropathy 09/20/2022 Chronic midline low back pain without sciatica 0 09/13/2022 DDD (degenerative disc disease), lumbar 09/13/19 23 shelter current use of anticoagulant 3 Sacroiliitis 09/13/2022 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 Chronic idiopathic constipation 07/16/2021 Hepatomegaly 07/16/2021 History of alcohol abuse 07/16/2021 PAD (peripheral artery disease) 02/26/2019 Abnormal EKG 01/30/2019 Overview (12/17/2024): Added automatically from request for surgery [id number] Sick sinus syndrome 04/20/2018 Overview (12/17/2024): Added automatically from request for surgery [id number] Last Assessment & Plan: Cardiac resynchronization defibrillator [...] BPPV (benign paroxysmal positional vertigo) 03/05 Overview (12/17/2024): Last Assessment & Plan: - encourage Felicita and Martini-Daroff maneuvers - ctm Chronic systolic heart failure 03/24/2018 Overview (12/17/2024): Last Assessment & Plan: Hx of HFrEF (EF 50% on 02/18) - TTE 02/18: mod global LV systolic dysfunction, with prominent septal bounce, and septal akinesis, EF ~50%, diastolic function w/ impaired relaxation, trace AR, MR, mild TR, PASP 25 + RAP - at home on sotalol & ramipril 7.5 - ct sotalol, lisinopril 20 Gastroesophageal reflux disease without esophagi tis 03/24/2018 HTN (hypertension) 03/24/2018 Overview (12/17/2024): Last Assessment & Plan: Continue amlodipine 5mg and lisinopril 5mg daily Hyperlipidemia 03/24/2018 Overview (12/17/2024): Last Assessment & Plan: - ct home rosuvastatin 20 PVC's (premature ventricular contractions) 03/24 Overview (12/17/2024): Last Assessment & Plan: - hx of PVCs - per pt, recent Holtor monitor showed ~9% PVCs. No records found - tele monitoring overnight without any significant PVC burden - ct sotalol 40mg BID Vestibular vertigo 03/16/2017 Hearing loss 03/14/2017 Chronic pain of both knees 02/03/2017 Arteriosclerosis of coronary artery 01/10/2017 Overview (12/17/2024): Added automatically from request for surgery [id number] Dizziness and giddiness 01/10/2017 High risk medication use 11/04/2016 Shortness of breath at rest 06/20/2016 Chest pain 03/18/2016 Cardiomyopathy 03/02/2015 Left ventricular dysfunction 03/02/2015 Obstructive sleep apnea syndrome 03/02/2015 Palpitations 03/02/2015 Vitreous degeneration 10/16/2012 Myopia 09/10/2012 Ascending aortic aneurysm 07/03/2012 Stenosis of carotid artery 07/03/2012 Atrial fibrillation 01/23/2008 Referred otalgia 03/15/2007 Inguinal hernia 04/19/2005 Left bundle branch block (LBBB) 07/09/2003 Resolved Problems Problem Noted Date Diagnosed Date Resolved Date Impacted cerumen 03/24/2017 12/31/2024 Encounters Date Type Department Care Team Description 12/17/2024 12:30 PM CDT Office Visit [facility] - [address] [address] Manish Calloway MD Right upper quadrant abdominal pain (Primary Dx) 12/17/2024 Telephone [facility] - [address] [address] Anya Lovell, RN Appointment 12/17/2024 Travel from Last 3 Months Social History Tobacco Use Types Packs/Day Years Used Date Smoking Tobacco: Former Cigarettes Q uit: 09/04/1971 Tobacco Cessation:Counseling Given: Not Answered Alcohol Use Standard Drinks/Week Comments No 0 (1 standard drink = 0.6 oz pur e alcohol) Sex and Gender Information Value Date Recorded Sex Assigned at Not on file Legal Sex Male 6:51 PM EMPLOYEE COMMUNICATIONS INTERN Gender Identity Not on file Sexual Orientation Not on file Last Filed Vital Signs Vital Sign Reading Time Taken Comments Blood Pressure 120/75 12/17/2024 12:33 PM CDT Pulse 72 12/17/2024 12:33 PM CDT Temperature 36.9 C (98.4 F) 12/17/2024 12:33 PM CDT Respiratory Rate 11 09/27/2024 3:15 PM EMPLOYEE COMMUNICATIONS INTERN Oxygen Saturation 98% 12/17/2024 12:33 PM CDT Inhaled Oxygen Concentration - - Weight 83.1 kg (183 lb 3.2 oz) 12/17/2024 12:33 PM CDT Height 172.7 cm (5' 8 ) 12/17/2024 12:33 PM CDT Body Mass Index 27.86 12/17/2024 12:33 PM CDT Plan of Treatment Health Maintenance Due Date Last Done Comments MEDICARE AWV 12 MONTHS 1942 DTAP/TDAP/TD VACCINES (1 - Tdap) 1961 PNEUMOCOCCAL VACCINE 50+ (1 of 2 - PCV) 1961 ZOSTER VACCINE (1 of 2) 1992 Respiratory Syncytial Virus (RSV) Vaccine Pt: or over 60 yrs (1 - 1-dose 75+ series) 2017 COVID-19 VACCINE (2 - season) 2024 10/14/2020 DEPRESSION SCREENING 09/04/2024 INFLUENZA VACCINE (Season Ended) 2025 06/07/2023, 06/12/2020, 06/15/2019, Additional history exists HEPATITIS B VACCINE Aged Out No longe r eligible based on patient's age to complete this topic HIB VACCINE Aged Out No longer eligi ble based on patient's age to complete this topic HPV VACCINE Aged Out No longer eligi ble based on patient's age to complete this topic MENINGOCOCCAL (Group B) VACCINE SHARED DECISION-MAKING Aged Out No longer eligible based on patient's age to complete this topic MENINGOCOCCAL GROUPS A/C/Y/W VACCINE Aged Out No longer eligible based on patient's age to complete this topic Goals Goal Patient Goal Type Associated Problems Recent Progress Patient-Stated? Author Medication Management General No Berenice Preciado, RN Note: Expected end date: ongoing Interventions: Take all medications as prescribed Let your doctor know right away about any changes in your medications Make sure to request a refill of your medication at least one week prior to your last dose Insurance MEDICARE [facility] MEDICARE [facility] Care Teams Chair Spring Assembler Relationship Specialty Start Date End Date Cheo Potts MD [address] [place] [address] PCP - General 01/07/16
--- OUTSIDE RECORDS SUMMARY | 2024-12-31 17:41 | XMS_ITS | Encounter Summary ---
Author Organization [facility] Address [address] [place] [address] Phone Care Team Providers Care Construction Safety Manager Name Role Phone Cheo Potts MD Primary Care Provider Neftaly Portillo MD Unavailable [phone] Qi Norris MD Unavailable [phone] Katharina Mac NP Unavailable [phone] Tree Ruiz MD PhD Unavailable [phone] Oanh Trevizo ENERGY RISK MANAGEMENT ANALYST Unavailable Torin Almodovar MD Unavailable Encounter Details Date Type Department Care Team (Late st Contact Info) Description 12/03/2024 Results [facility] Cardiology [address] [place] [address] Zainab Francis, ENERGY RISK MANAGEMENT ANALYST [address] [address] [place] [address] Social History Tobacco Use Types Packs/Day Years Used Date Smoking Tobacco: Former Cigarettes Q uit: 1972 Passive Smoke Exposure: Past Smokeless Tobacco: Never Alcohol Use Standard Drinks/Week Comments Yes 7 (1 standard drink = 0.6 oz pur e alcohol) [facility] Utilities Answer Date Recorded In the past 12 months has [employer] electric, gas, oil, or water company threatened [...] often do you attend chur ch or sikhism services? Never 09/22/2023 Do you belong to [...] place to sleep or slept in a nursing home (including now)? No 09/22/2023 Personal Safety Answer Date Recorded Have you ever been in or are you currently in a harmful physical or emotional relationship or is someone making you feel afraid or unsafe? Denies 09/20/2023 Sex and Gender Information Value Date Recorded Sex Assigned at Not on file Legal Sex Male 3:18 AM BREAKER TABLE WORKER Gender Identity Male 11/05/2020 12:05 PM BREAKER TABLE WORKER Sexual Orientation Not on file documented as of this encounter Plan of Treatment Not on file documented as of this encounter Visit Diagnoses Not on filedocumented in this encounter Care Teams Construction Safety Manager Relationship Specialty Start Date End Date Cheo Potts MD [address] [facility] [address] [facility] [address] [place] [address] PCP - General 01/03/17 Neftaly Portillo MD [address] [facility] [address] [place] [address] Consulting Physician Cardiology 11/15/18 Qi Norris MD [address] [address] Referring Physician Gastroenterology 05/10/23 Katharina Mac NP [address] [address] Nurse Practitioner Cardiology 11/21/23 Tree Ruiz MD PhD [address] [address] Consulting Physician Cardiology 11/21/23 [place] [address] [address] [address] Nurse Practitioner Retail Merchandising Manager 09/18/24 [place] [address] [address] [facility] [address] [address] Consulting Physician Pain Management 11/13/24 documented as of this encounter
--- OUTSIDE RECORDS SUMMARY | 2024-12-31 17:42 | XMS_ITS | Encounter Summary ---
Author Organization [facility] Address [address] [place] [address] Phone Care Team Providers Care Patternmaker Plaster And Plastic Name Role Phone Cheo Potts MD Primary Care Provider Neftaly Portillo MD Unavailable [phone] Tree Ruiz MD PhD Unavailable [phone] Katharina Mac ARMATURE INSPECTOR Unavailable [phone] Qi Norris MD Unavailable [phone] Yuly Nieves RN Unavailable Katharina Mac ARMATURE INSPECTOR Unavailable Tree Ruiz MD PhD Unavailable [phone] Oanh Trevizo ARMATURE INSPECTOR Unavailable [phone] Oanh Trevizo ARMATURE INSPECTOR Unavailable Torin Almodovar MD Unavailable Reason for Visit * Reason Onset Date Comments CALL BACK 04/20/2018 Encounter Details Date Type Department Care Team (Late st Contact Info) Description 04/20/2018 Telephone [facility] Cardiology [address] [facility] [facility] 8th [place] [address] [place] [address] Tree Ruiz MD PhD [address] [facility] [address] [place] [address] CALL BACK Social History Tobacco Use Types Packs/Day Years Used Date Smoking Tobacco: Former Smokeless Tobacco: Never Alcohol Use Standard Drinks/Week Comments No 7 (1 standard drink = 0.6 oz pur e alcohol) Sex and Gender Information Value Date Recorded Sex Assigned at Not on file Legal Sex Male 3:18 AM TRANSITION MGR Gender Identity Male 11/05/2020 12:05 PM TRANSITION MGR Sexual Orientation Not on file documented as of this encounter Plan of Treatment Not on file documented as of this encounter Visit Diagnoses Not on filedocumented in this encounter Care Teams Patternmaker Plaster And Plastic Relationship Specialty Start Date End Date Cheo Potts MD [address] [place] [address] PCP - General 01/03/17 Neftaly Portillo MD [address] [facility] [address] [facility] [address] [place] [address] Consulting Physician Cardiology 11/15/18 Tree Ruiz MD PhD [address] [facility] [address] [place] [address] Referring Physician Cardiology 12/10/20 11/20/23 Katharina Mac NP [address] [facility] [address] [place] [address] Referring Physician Cardiology 12/10/20 11/20/23 Qi Norris MD [address] [address] Referring Physician Gastroenterology 05/10/23 Yuly Nieves, CLARISSA [address] [facility] [address] [place] [address] Tech 09/22/23 10/18/23 Katharina Mac NP [address] [facility] [address] [place] [address] Nurse Practitioner Cardiology 11/21/23 Tree Ruiz MD PhD [address] [facility] [address] [place] [address] Consulting Physician Cardiology 11/21/23 [place] [address] [address] Nurse Practitioner Tech Ed/Woodshop Teacher 07/18/24 11/12/24 [place] [address] [address] Nurse Practitioner Tech Ed/Woodshop Teacher 09/18/24 [place] [address] [address] [facility] [address] [place] [address] Consulting Physician Pain Management 11/13/24 documented as of this encounter
--- OUTSIDE RECORDS SUMMARY | 2024-12-31 17:42 | XMS_ITS | Encounter Summary ---
Author Organization [facility] Address [address] [place] [address] Phone Care Team Providers Care Infrastructure Consultant Name Role Phone Cheo Potts MD Primary Care Provider Neftaly Portillo MD Unavailable [phone] Tree Ruiz MD PhD Unavailable [phone] Katharina Mac ORIENTAL RUG REPAIRER Unavailable [phone] Qi Norris MD Unavailable [phone] Yuly Nieves RN Unavailable Katharina Mac ORIENTAL RUG REPAIRER Unavailable Tree Ruiz MD PhD Unavailable [phone] Oanh Trevizo ORIENTAL RUG REPAIRER Unavailable Oanh Trevizo ORIENTAL RUG REPAIRER Unavailable [phone] Torin Almodovar MD Unavailable Encounter Details Date Type Department Care Team (Latest Contact Info) Description 01/25/2023 Orders Only [facility] Berenice Olivares, RN [address] [facility] [address] [place] [address] Social History Tobacco Use Types [...] on file Legal Sex Male 3:18 AM GRIEVANCE COORDINATOR Gender Identity Male 11/05/2020 12:05 PM GRIEVANCE COORDINATOR Sexual Orientation Not on file documented as of this encounter Plan of Treatment Not on file documented as of this encounter Procedures Procedure Name Priority Date/Time Associated Diagnosis Comments SCAN - LABS 01/25/2023 documented in this encounter Results * SCAN - LABS (01/25/2023) us Berenice Olivares RN Final Result documented in this encounter Visit Diagnoses Not on filedocumented in this encounter Care Teams Infrastructure Consultant Relationship Specialty Start Date End Date Cheo Potts MD [address] [place], [place] [id number] PCP - General 01/03/17 Neftaly Portillo MD [address] [facility] [address] [facility] [address] [place] [address] Consulting Physician Cardiology 11/15/18 Tree Ruiz MD PhD [address] [facility] [address] [facility] [address] [place] [address] Referring Physician Cardiology 12/10/20 11/20/23 Katharina Mac NP [address] [facility] [address] [facility] [address] [place] [address] Referring Physician Cardiology 12/10/20 11/20/23 Qi Norris MD [address] [address] Referring Physician Gastroenterology 05/10/23 Yuly Nieves, RN [address] [place] [address] SHOP Outpatient Flight Surgeon 09/22/23 10/18/23 Katharina Mac, DEBORA [address] [place] [address] Nurse Practitioner Cardiology 11/21/23 Tree Ruiz MD PhD [address] [place] [address] Consulting Physician Cardiology 11/21/23 [place] [address] [address] [email or web address] 100 [place] [address] Nurse Practitioner Import Coordination And Production Head 07/18/24 11/12/24 [place] [address] [address] [facility] [[email or web address] 100 [place] [address] Nurse Practitioner Import Coordination And Production Head 09/18/24 [place] [address] [address] [facility] [[email or web address] [address] [place] [address] Consulting Physician Pain Management 11/13/24 documented as of this encounter
--- OUTSIDE RECORDS SUMMARY | 2024-12-31 17:42 | XMS_ITS | Encounter Summary ---
Author Organization [facility] Address [address] [place] [address] Phone Care Team Providers Care Tool Room Attendant Name Role Phone Cheo Potts MD Primary Care Provider Neftaly Portillo MD Unavailable [phone] Tree Ruiz MD PhD Unavailable [phone] Katharina Mac MILEAGE CLERK Unavailable [phone] Qi Norris MD Unavailable [phone] Yuly Nieves RN Unavailable Katharina Mac MILEAGE CLERK Unavailable [phone] Tree Ruiz MD PhD Unavailable [phone] Oanh Trevizo MILEAGE CLERK Unavailable Oanh Trevizo MILEAGE CLERK Unavailable [phone] Torin Almodovar MD Unavailable Encounter Details Date [...] on file Legal Sex Male 3:18 AM DOWEL SANDER OPERATOR Gender Identity Male 11/05/2020 12:05 PM DOWEL SANDER OPERATOR Sexual Orientation Not on file documented as of this encounter Plan of Treatment Not on file documented as of this encounter Procedures Procedure Name Priority Date/Time Associated Diagnosis Comments SLEEP LAB/STUDY - RESULT 12/20/2018 documented in this encounter Results * SLEEP LAB/STUDY - RESULT (12/20/2018) us Provider Scanning Final Result documented in this encounter Visit Diagnoses Not on filedocumented in this encounter Care Teams Tool Room Attendant Relationship Specialty Start Date End Date Cheo Potts MD [address] [place] [address] PCP - General 01/03/17 Neftaly Portillo MD [address] [facility] 2300 [place] [address] Consulting Physician Cardiology 11/15/18 Tree Ruiz MD PhD [address] [facility] [address] [place] [address] Referring Physician Cardiology 12/10/20 11/20/23 Katharina Mac NP [address] [facility] [address] [place] [address] Referring Physician Cardiology 12/10/20 11/20/23 Qi Norris MD 2 [facility] [address] [place] [address] Referring Physician Gastroenterology 05/10/23 Yuly Nieves RN [address] [facility] 5300 [place] [address] SHOP Outpatient Radiologist Chief Of Breast Imaging 09/22/23 10/18/23 Katharina Mac NP [address] [facility] [address] [place] [address] Nurse Practitioner Cardiology 11/21/23 Tree Ruiz MD PhD [address] [facility] [address] [place] [address] Consulting Physician Cardiology 11/21/23 Oanh Trevizo, DEBORA [address] [address] [facility] 100 [place] [address] Nurse Practitioner Artificial Breeding Ranch Supervisor 07/18/24 11/12/24 [place] [address] [address] Nurse Practitioner Artificial Breeding Ranch Supervisor 09/18/24 [place] [address] [address] [facility] [address] [place] [place] [address] Consulting Physician Pain Management 11/13/24 documented as of this encounter
--- OUTSIDE RECORDS SUMMARY | 2024-12-31 17:42 | XMS_ITS | Encounter Summary ---
Author Organization [facility] Address [address] [place] [address] Phone Care Team Providers Care In House Counsel Name Role Phone Cheo Potts MD Primary Care Provider Neftaly Portillo MD Unavailable [phone] Tree Ruiz MD PhD Unavailable [phone] Katharina Mac HANDBAG OPERATOR Unavailable Qi Norris MD Unavailable [phone] Yuly Nieves RN Unavailable Katharina Mac HANDBAG OPERATOR Unavailable Tree Ruiz MD PhD Unavailable [phone] Oanh Trevizo HANDBAG OPERATOR Unavailable [phone] Oanh Trevizo HANDBAG OPERATOR Unavailable Torin Almodovar MD Unavailable Encounter Details Date Type Department Care Team (Latest Contact Info) Description 10/05/2022 Orders Only [facility] Berenice Olivares, RN [address] [facility] [address] [place] [address] Social History Tobacco Use Types [...] file Legal Sex Male 3:18 AM WARP TIER Gender Identity Male 11/05/2020 12:05 PM WARP TIER Sexual Orientation Not on file documented as of this encounter Plan of Treatment Not on file documented as of this encounter Procedures Procedure Name Priority Date/Time Associated Diagnosis Comments SCAN - LABS 10/05/2022 documented in this encounter Results * SCAN - LABS (10/05/2022) us Berenice Olivares RN Final Result documented in this encounter Visit Diagnoses Not on filedocumented in this encounter Care Teams In House Counsel Relationship Specialty Start Date End Date Cheo Potts MD [address] [place], [place] [id number] PCP - General 01/03/17 Neftaly Portillo MD [address] [facility] [address] [facility] 23[address] [place] [address] Consulting Physician Cardiology 11/15/18 Tree Ruiz MD PhD [address] [facility] [address] [facility] [address] [place] [address] Referring Physician Cardiology 12/10/20 11/20/23 Katharina Mac NP [address] [facility] [address] [facility] [address] [place] [address] Referring Physician Cardiology 12/10/20 11/20/23 Qi Norris MD [address] [address] Referring Physician Gastroenterology 05/10/23 Yuly Nieves, RN [address] [place] [address] SHOP Outpatient Reagent Tender Helper 09/22/23 10/18/23 Katharina Mac, DEBORA [address] [place] [address] Nurse Practitioner Cardiology 11/21/23 Tree Ruiz MD PhD [address] [place] [address] Consulting Physician Cardiology 11/21/23 [place] [address] [facility] 100 [place] [address] Nurse Practitioner Oven Technician 07/18/24 11/12/24 [place] [address] [facility] 100 [place] [address] Nurse Practitioner Oven Technician 09/18/24 [place] [address] [facility] [address] [place] [place] [address] Consulting Physician Pain Management 11/13/24 documented as of this encounter
--- OUTSIDE RECORDS SUMMARY | 2024-12-31 17:42 | XMS_ITS | Encounter Summary ---
Author Organization [facility] Address [address] [place] [address] Phone Care Team Providers Care Aircraft Refueller Name Role Phone Cheo Potts MD Primary Care Provider Neftaly Portillo MD Unavailable [phone] Qi Norris MD Unavailable [phone] Katharina Mac NP Unavailable [phone] Tree Ruiz MD PhD Unavailable [phone] Oanh Trevizo FORMING ROLL OPERATOR Unavailable [phone] Torin Almodovar MD Unavailable Encounter Details Date Type Department Care Team (Late st Contact Info) Description 11/25/2024 Results Follow-Up [facility] Card[facility] [address] [facility] [address] [place] [address] Zainab Francis, FORMING ROLL OPERATOR [address] [facility] [address] [address] [place] [address] Social History Tobacco Use Types Packs/Day Years Used Date Smoking Tobacco: Former Cigarettes Q uit: 1972 Passive Smoke Exposure: Past Smokeless Tobacco: Never Alcohol Use Standard Drinks/Week Comments Yes 7 (1 standard drink = 0.6 oz pur e alcohol) [facility] Utilities Answer Date Recorded In the past 12 months has Is [employer] electric, gas, oil, or water company threatened [...] often do you attend chur ch or anabaptist services? Never 09/22/2023 Do you belong to any clubs o r organizations such as orthodoxy groups, unions, fraternal or athletic groups, or [...] place to sleep or slept in a mcc (including now)? No 09/22/2023 Personal Safety Answer Date Recorded Have you ever been in or are you currently in a harmful physical or emotional relationship or is someone making you feel afraid or unsafe? 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 Sexual Orientation Not on file documented as of this encounter Plan of Treatment Not on file documented as of this encounter Visit Diagnoses Not on filedocumented in this encounter Care Teams Aircraft Refueller Relationship Specialty Start Date End Date Cheo Potts MD [address] [facility] [address] [facility] [address] [place] [address] PCP - General 01/03/17 Neftaly Portillo MD [address] [facility] [address] [place] [address] Consulting Physician Cardiology 11/15/18 Qi Norris MD [address] [address] Referring Physician Gastroenterology 05/10/23 Katharina Mac NP [address] [address] Nurse Practitioner Cardiology 11/21/23 Tree Ruiz MD PhD [address] [address] Consulting Physician Cardiology 11/21/23 [place] [address] [address] [address] Nurse Practitioner Investment Director 09/18/24 [place] [address] [facility] [facility] [address] [address] Consulting Physician Pain Management 11/13/24 documented as of this encounter
--- OUTSIDE RECORDS SUMMARY | 2024-12-31 17:42 | XMS_ITS | Continuity of Care Document ---
Author Organization [facility] Address [address] [facility] [address] [place] [address] Phone Care Team Providers Care Accounting Director Name Role Phone Juve PT,MPT,ATC, Armando Unavailable Unavai lable Procedures Procedure Date Therapeutic Activities Therapeutic Exercise Neuromuscular Re-Ed Therapeutic Activities Therapeutic Exercise Neuromuscular Re-Ed Therapeutic Exercise Therapeutic Activities Therapeutic Activities Therapeutic Exercise Therapeutic Activities Therapeutic Exercise Therapeutic Exercise Therapeutic Activities Doc neg elder mal no plan Doc neg elder mal no plan Doc neg elder mal no plan PT Evaluation High Complexity Therapeutic Activities Therapeutic Activities Therapeutic Activities Therapeutic Exercise Therapeutic Activities Therapeutic Activities Therapeutic Exercise PT Evaluation High Complexity 0 Therapeutic Activities Therapeutic Exercise Therapeutic Activities Neuromuscular Re-Ed Therapeutic Exercise Therapeutic Activities Therapeutic Exercise Neuromuscular Re-Ed Therapeutic Activities Neuromuscular Re-Ed Therapeutic Exercise Therapeutic Activities Neuromuscular Re-Ed Therapeutic Exercise Therapeutic Activities Neuromuscular Re-Ed Therapeutic Exercise Therapeutic Activities Neuromuscular Re-Ed Therapeutic Exercise Therapeutic Activities Neuromuscular Re-Ed Therapeutic Exercise PT Evaluation Moderate Complexity Therapeutic Activities Therapeutic Exercise Therapeutic Activities Therapeutic Exercise Therapeutic Activities Neuromuscular Re-Ed Therapeutic Exercise Manual Therapy Therapeutic Activities Neuromuscular Re-Ed Therapeutic Exercise Manual Therapy Therapeutic Activities Therapeutic Exercise Manual Therapy Therapeutic Exercise Therapeutic Activities Neuromuscular Re-Ed Manual Therapy PT Re-evaluation Therapeutic Exercise Neuromuscular Re-Ed Therapeutic Activities PT Evaluation High Complexity 9 Therapeutic Exercise Neuromuscular Re-Ed Carrying, Moving And Handling Objects-Cu rrent Carrying, Moving And Handling Objects-Go al Carrying, Moving And Handling Objects-Di maile Therapeutic Exercise Neuromuscular Re-Ed Carrying, Moving And Handling Objects-Cu rrent Carrying, Moving And Handling Objects-Go al Therapeutic Exercise Neuromuscular Re-Ed Therapeutic Exercise Neuromuscular Re-Ed Therapeutic Exercise Neuromuscular Re-Ed Therapeutic Exercise Neuromuscular Re-Ed Therapeutic Exercise Neuromuscular Re-Ed Therapeutic Exercise Neuromuscular Re-Ed Therapeutic Exercise Manual Therapy Therapeutic Exercise Neuromuscular Re-Ed Therapeutic Exercise Neuromuscular Re-Ed Manual Therapy Carrying, Moving And Handling Objects-Cu rrent Carrying, Moving And Handling Objects-Go al PT Evaluation Moderate Complexity Therapeutic Exercise Carrying, Moving And Handling Objects-Cu rrent Carrying, Moving And Handling Objects-Go al Therapeutic Exercise Neuromuscular Re-Ed Therapeutic Exercise Neuromuscular Re-Ed Therapeutic Exercise Neuromuscular Re-Ed Therapeutic Exercise Neuromuscular Re-Ed Therapeutic Exercise Therapeutic Activities Therapeutic Exercise Therapeutic Activities Therapeutic Exercise Therapeutic Activities Mobility: Walking And Moving Limitations -nt Mobility: Walking And Moving Limitation- Goal Therapeutic Exercise Therapeutic Activities Mobility: Walking And Moving Limitations -nt Mobility: Walking And Moving Limitation- Goal Therapeutic Exercise Therapeutic Activities Therapeutic Exercise Therapeutic Activities Therapeutic Exercise Therapeutic Activities Therapeutic Exercise Therapeutic Activities Neuromuscular Re-Ed Therapeutic Exercise Therapeutic Activities Neuromuscular Re-Ed Therapeutic Exercise Therapeutic Activities Neuromuscular Re-Ed Therapeutic Exercise Therapeutic Activities Neuromuscular Re-Ed Therapeutic Exercise Neuromuscular Re-Ed PT Evaluation Moderate Complexity Therapeutic Exercise Neuromuscular Re-Ed Mobility: Walking And Moving Limitations -Curent Mobility: Walking And Moving Limitation- Goal Therapeutic Exercise Therapeutic Activities Therapeutic Exercise Therapeutic Activities Therapeutic Exercise Therapeutic Activities Therapeutic Exercise Therapeutic Activities Therapeutic Exercise Therapeutic Activities Therapeutic Exercise Therapeutic Activities Progress Note Therapeutic Exercise Therapeutic Activities Mobility: Walking And Moving Limitations -Curent Mobility: Walking And Moving Limitation- Goal Therapeutic Exercise Therapeutic Activities Therapeutic Exercise Therapeutic Activities Therapeutic Exercise Therapeutic Activities Therapeutic Exercise Therapeutic Activities PT Evaluation Moderate Complexity Therapeutic Exercise Mobility: Walking And Moving Limitations -nt Mobility: Walking And Moving Limitation- Goal Advance Directives Directive Yes / No Effective Date File Name No Information Encounters Encounter Description Practice Location Reason(s) For Visit Diagnoses Date Provider Providers Copied on Encounter [facility], [place], [place], [id number], tel:[phone] [place] No Information Sep-2 2 Juve [place]an[place] [facility], [place], [place], [address], tel:[phone] [place] No Information Sep-2 2 Ju[place] [facility], [place], [place], [address], tel:[phone] [place] No Information Sep-2 2 Ju[place], . [facility], [place], [place], [address], tel:[phone] [place] No Information Sep-1 2 Juve [place]eda [place], [place]. [facility], [place], [place], [address], [place] tel:[phone] [place] No Information Sep-1 - 2 An Armando. , [place], [place]. [facility], [place], [place], [address], [place] tel:[phone] [place] No Information Sep-0 2 Na Armando. , [place], [place]. [facility], [place], [place], [address], [place] tel:[phone] [place] No Information Sep-0 2 An Arm[place]. , [place], [place]. [facility], [address], [place], [place], [address], tel:[phone] [place] No Information Dec-2 - 0 An Armando. , [place], [place]. [facility], [place], [place], [address], [place] tel:[phone] [place] No Information Aug-09 08- 0 An Arm[place]. , [place], [place]. [facility], [place], [place], [address], [place] tel:[phone] [place] No Information 2 - 0 An [place]. , [place]. [facility], [place], [place], [address], [place] tel:[phone] [place] No Information Jul-1 - 0 An [place]. , [place]. [facility], [place], [place], [address], [place] tel:[phone] [place] No Information Jul-0 0 An [place]. , [place], [place]. [facility], [place], [place], [address], [place] tel:[phone] [place] No Information - 0 An [place]. , [place], [place]. [facility], [place], [place], [address], [place] tel:[phone] [place] No Information 0 An [place]. , [place], [place]. [facility], [place], [place], [address], tel:[phone] [place] No Information 0 An [place]. , [place], [place]. [facility], [place], [place], [address], tel:[phone] [place] No Information 0 An [place]. , [place], [place]. [facility], [place], [place], [address], tel:[phone] [place] No Information 0 An [place]. , [place]. [facility], [place], [place], [address], tel:[phone] [place] No Information [address] . [facility], [place], [place], [address], [place] tel:[phone] [place] No Information 9 An [place]. , [place], [place]. [facility], [place], [place], [address], tel:[phone] [place] No Information [address] . [facility], [place], [place], [address], [place] tel:[phone] [place] No Information 0 9 Omar Durham. . Referring Provider: Tarik Fish, [address], [place], [address]. tel:[phone] [facility], [place], [place], [address], [place] tel:[phone] [place] No Information Oct-0 1-201 9 Treaster Marva. . Referring Provider: Nel Su[address]rez[address], [place], [address]. tel:[phone] [place] [address] [address], [place], [place], [address], tel:[phone] [place] No Information Sep-2 6-201 9 Treaster Marva. . Referring Provider: Nel Su[address]rez[address], [place], [address]. tel:[phone] [place] [address] [address], [place], [place], [address], [place] tel:[phone] [place] No Information Sep-1 9-201 9 Treaster Marva. . Referring Provider: Nel Su[address]rez[address], [place], [address]. tel:[phone] [place] [address] [facility] [address], [place], [place], [address], [place] tel:[phone] [place] No Information Sep-1 0-201 9 Treaster Marva. . Referring Provider: Nel Suárez[address], [place], [address]. tel:[phone] [place] [address] [address], [place], [place], [address], [place] tel:[phone] [place] No Information Sep-0 3-201 9 Treaster Marva. . Referring Provider: Nel Suárez[address], [place], [address]. tel:[phone], [place], [place], [address], [place] tel:[phone] [place] No Information Apr-2 7-201 9 [place] Referring Provider: Nel Suárez[address], [place], [address]. tel:[phone] [facility], [place], [place], [address], [place] tel:[phone] [place] Pain in left shoulderPain in right shoulder 8 An Arm[place]. , [place]. [facility], [place], [place], [address], [place] tel:[phone] [place] Pain in left shoulderPain in right shoulder 8 An Arm[place]. , [place]. [facility], [place], [place], [address], [place] tel:[phone] [place] Pain in left shoulderPain in right shoulder 8 An Arm[place]. , [place]. [facility], [place], [place], [address], [place] tel:[phone] [place] Pain in left shoulderPain in right shoulder 8 An Arm[place]. , [place]. [facility], [place], [place], [address], [place] tel:[phone] [place] Pain in left shoulderPain in right shoulder 8 An Arm[place]. , [place]. [facility], [place], [place], [address], [place] tel:[phone] [place] Pain in left shoulderPain in right shoulder 8 An [place]. , [place] [facility], [place], [place], [address], [place] tel:[phone] [place] Pain in left shoulderPain in right shoulder 8 An [place]. , [place]. [facility], [place], [place], [address], [place] tel:[phone] [place] Pain in left shoulderPain in right shoulder Jun- 8 Juve Roberts. , [place], [place]. [facility], [place], [place], [address], [place] tel:[phone] [place] Pain in left shoulderPain in right shoulder Jun- 8 [address] . [facility], [place], [place], [address], [place] tel:[phone] [place] Pain in left shoulderPain in right shoulder Jun- 8 Juve Roberts. , [place], [place]. [facility], [place], [place], [address], [place] tel:[phone] [place] Pain in left shoulderPain in right shoulder Jun- 8 Juve Castaneda , [place], [place]. [facility], [place], [place], [address], [place] tel:[phone] [place] Pain in left shoulderPain in right shoulder Jun-0 8 Juve Roberts. , [place]. [facility], [place], [place], [address], [place] tel:[phone] [place] Spinal stenosis, lumbar region without neurogenic andre Apr-0 8 Juve Castaneda , [place], [place] Referring Provider: Chris Álvarez [address], [place], [place], [facility]. tel:[phone] [facility], [place], [place], [address], [place] tel:[phone] [place] Spinal stenosis, lumbar region without neurogenic andre Apr-0 8 Juve [place]aneda [place] Referring Provider: Chris Álvarez [address], [place], [address]. tel:[phone] [facility], [place], [place], [address], [place] tel:[phone] [place] Spinal stenosis, lumbar region without neurogenic andre Apr-0 2-201 8 An [place]. , [place], [place]. Referring Provider: Aguila Álvarez[address] [place] [address] [address], [place], [place], [facility]. tel:[phone] [facility], [address], [place], [place], [address], [place] tel:[phone] [place] Spinal stenosis, lumbar region without neurogenic andre Mar-3 0-201 8 [place]. , [place], [place]. Referring Provider: Cheo Potts [address] [place] [address] [address], [place], [facility]. tel:[phone] [facility] [address], [place], [place], [address], [place] tel:[phone] [place] Spinal stenosis, lumbar region without neurogenic andre Mar-2 8-201 8 [place]. , [place], [place] Referring Provider: Aguila Álvarez[address] [place] [address] [address], [place], [facility]. tel:[phone] [place] [address] [facility] [address], [place], [place], [address], [place] tel:[phone] [place] Spinal stenosis, lumbar region without neurogenic andre Mar-2 6-201 8 [facility] , [place]. Referring Provider: Aguila Álvarez[address] [place] [address] [address], [place], [facility]. tel:[phone] [facility] [address], [place], [place], [address], [place] tel:[phone] [place] Spinal stenosis, lumbar region without neurogenic andre Mar-2 3-201 8 [facility] , [place]. Referring Provider: Aguila Álvarez[address] [place] [address] [address], [place], [facility]. tel:[phone] [facility] [address], [place], [place], [address], [place] tel:[phone] [place] Spinal stenosis, lumbar region without neurogenic andre Mar-2 1-201 8 An [place]. , [place], [place]. Referring Provider: Aguila Álvarez[address] [place] [address] [address], [place], [address]. tel:[phone] [place] [address], [place], [place], [address], [place] tel:[phone] [place] Spinal stenosis, lumbar region without neurogenic andre Mar-1 9-201 8 An [place]. , [place], [place]. Referring Provider: Aguila Álvarez[address] [place] [address] [address], [place], [facility]. tel:[phone] [place] [address], [place], [place], [address], [place] tel:[phone] [place] No Information Mar-1 6-201 8 An Arm[place]. , [place], [place]. Referring Provider: Aguila Álvarez[address] [place] [address] [address], [place], [facility]. tel:[phone], [place], [place], [address], [place] tel:[phone] [place] No Information Mar-1 4-201 8 An [place]. , [place], [place]. Referring Provider: Chris Álvarez [facility] [address], [place], [facility]. tel:[phone], [place], [place], [address], [place] tel:[phone] [place] No Information Mar-1 2-201 8 An Arm[place]. , [place], [place]. Referring Provider: Chris Álvarez [facility] [address], [place], [facility]. tel:[phone] [facility] [address], [place], [place], [address], [place] tel:[phone] [place] No Information Mar-0 9-201 8 An Arm[place]. , [place], [place]. Referring Provider: Chris Álvarez [facility] [address], [place], [facility]. tel:[phone] [place] [address], [place], [place], [address], [place] tel:[phone] [place] No Information Mar-0 7-201 8 An [place]. , [place], [place]. Referring Provider: Cheo Potts [address] [place] [address] [address], [place], [facility]. tel:[phone] [facility] [address], [place], [place], [address], [place] tel:[phone] [place] No Information Mar-0 5-201 8 An [place]. , [place], [place] Referring Provider: Cheo Potts [address] [place] [address] [address], [place], [facility]. tel:[phone] [facility] [address], [place], [place], [address], tel:[phone] [place] No Information Mar-0 2-201 8 Guillermina Adames. . Referring Provider: Cheo Potts [address] [place] [address] [address], [place], [facility]. tel:[phone] [facility], [address], [place], [place], [address], [place] tel:[phone] [place] Spinal stenosis, lumbar region without neurogenic andre Feb-2 8-201 8 An [place]. , [place]. Referring Provider: Cheo Potts [address] [place] [address] [address], [place], [facility]. tel:[phone] [facility] [address], [place], [place], [address], [place] tel:[phone] [place] No Information Nov-0 9-201 7 An [place]. , [place] Referring Provider: Tarik Fish, [address] [facility] [address], [place], [address]. tel:[phone] [facility], [place], [place], [address], [place] tel:[phone] [place] No Information Nov-0 1-201 7 [facility] Referring Provider: Nel Suárez[address], [place], [address]. tel:[phone], [place], [place], [address], [place] tel:[phone] [place] No Information Jun-3 0-201 7 [facility] , [place], [place]. Referring Provider: Nel Suárez[address], [place], [address]. tel:[phone] [facility] [address], [place], [place], [address], [place] tel:[phone] [place] No Information Jun-2 3-201 7 [facility] [place] Referring Provider: Nel Suárez[address], [place], [address]. tel:[phone] [facility] [address], [place], [place], [address], [place] tel:[phone] [place] No Information Jun- 9-201 7 [facility] [place] Referring Provider: Tacos Suárez [address], [place], [address]. tel:[phone] [facility] [address], [place], [place], [address], [place] tel:[phone] [place] No Information Jun-1 6-201 7 [facility] [place] Referring Provider: Nel Suárez[address], [place], [address]. tel:[phone] [facility] [address], [place], [place], [address], [place] tel:[phone] [place] No Information Jun-0 9-201 7 [place]. , [place], [place]. Referring Provider: Tacos Suárez [address], [place], [address]. tel:[phone] [facility] [address], [place], [place], [address], tel:[phone] [place] No Information Jun-0 7 [place], . Referring Provider: Tacos Suárez [address], [place], [address]. tel:[phone] [facility] [address], [place], [place], [address], tel:[phone] [place] No Information Jun-0 7 [place], . Referring Provider: Tacos Suárez [address], [place], [address]. tel:[phone] [facility] [address], [place], [place], [address], tel:[phone] [place] No Information Sep-2 7 [place], . Referring Provider: Tacos Suárez [address], [place], [address]. tel:[phone] [facility] [address], [place], [place], [address], tel:[phone] [place] No Information Sep-2 7 Niederhomatthias Adames. . Referring Provider: Tacos Suárez [address], [place], [address]. tel:[phone] [facility] [address], [place], [place], [address], [place] tel:[phone] Michelle Stiffness of right knee, not elsewhere classifiedPai n in right kneeOth disrd of synovium and tendon, unspecified siteAbnormal posture Sep-2 7 Niederhoffer Rosangela. . Referring Provider: Tacos Suárez [address], [place], [address]. tel:[phone] Family History Family Member Type Diagnosis Age At Onset No Information Payers Payer name Insurance type Covered green party ID Authordariena tikavon(s) Medicare [place] MB [id number] [facility] [id number] Social History Type Description Quantity Date Captured Comments Sex Male Smoking Status No Information Chief Complaint And Reason For Visit No Information Reason For Referral Reason For Referral No Information History Of Present Illness Encounter Date Complaint History Of Prese nt Illness No Information Functional Status Date Functional Assessmen t No Information Instructions Date Instruction Additional Infor mation Giving encouragement to exercise Related to Overweight Giving encouragement to exercise Related to Overweight Giving encouragement to exercise Related to Overweight Giving encouragement to exercise Related to Overweight Giving encouragement to exercise Related to Overweight Giving encouragement to exercise Related to Overweight Giving encouragement to exercise Related to Overweight Assessments Type Assessment Date No Information Patient Care Teams Name Effective Dates (start - stop) Status Members No Information
[2024-12-31 18:07] LABS: Free T4 Free Thyroxine 1.17 ng/dL (0.78-2.19)
== END 2024-12-31 16:55 | disposition home or self-care (01) ==
PROVIDERS: PCP Family Medicine; Visit Provider Physician Assistant
DX: R00.2 Palpitations (principal)
CPT/HCPCS: 36415; 80053; 81003; 84439; 84443; 85025

== ENCOUNTER 2025-01-07 16:11 | Outpatient (CLI) | payer MEDICARE, SELFPAY ==
--- OUTSIDE RECORDS SUMMARY | 2025-01-07 16:20 | XMS_ITS | Clinical Summary ---
Author Organization [facility] Address [address] [place] [address] Care Team Providers Care Title Clerk Automobile Name Role Phone Cheo Potts MD Primary Care Provider [phone] Source Comments [facility],non-owned Affiliates and Associated Physician Practices is amultiple site organization consisting of ambulatory clinics and hospital sitesin [place], [place], [place] and [place]. This disclosure is being madepursuant to the Care Everywhere program and may not contain all information available regarding this patient. 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 Chronic idiopathic constipation 07/16/2021 Hepatomegaly 07/16/2021 History of alcohol abuse 07/16/2021 PAD (peripheral artery disease) 02/26/2019 Abnormal EKG 01/30/2019 Overview (12/17/2024): Added automatically from request for surgery [id number] Sick sinus syndrome 04/20/2018 Overview (12/17/2024): Added automatically from request for surgery [id number] Last Assessment & Plan: Cardiac resynchronization defibrillator [...] (12/17/2024): Added automatically from request for surgery [id number] Dizziness and giddiness 01/10/2017 High risk medication [...] CDT Office Visit [facility] - [address] [address] Manish Calloway MD Right upper quadrant abdominal pain (Primary Dx) 12/17/2024 Telephone [facility] - [address] [address] Anya Lovell, RN Appointment 12/17/2024 Travel from [...] on file 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 Gender Identity Not on file Sexual Orientation Not on file Last Filed Vital Signs Vital Sign Reading Time Taken Comments Blood Pressure 120/75 12/17/2024 12:33 PM CDT Pulse 72 12/17/2024 12:33 PM CDT Temperature 36.9 C (98.4 F) 12/17/2024 12:33 PM CDT Respiratory Rate 11 09/27/2024 3:15 PM 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
--- OUTSIDE RECORDS SUMMARY | 2025-01-07 16:20 | XMS_ITS | Encounter Summary ---
Author Organization [facility] Address [address] [place] [address] Phone Care Team Providers Care Ferry Operator Name Role Phone Cheo Potts MD Primary Care Provider Neftaly Portillo MD Unavailable [phone] Qi Norris MD Unavailable [phone] Katharina Mac RN CHARGE Unavailable [phone] Tree Ruiz MD PhD Unavailable [phone] Oanh Trevizo RN CHARGE Unavailable [phone] Torin Almodovar MD Unavailable Reason for Visit * Reason Onset Date Comments Medical Records Request 01/01/2025 Encounter Details Date Type Department Care Team (Late st Contact Info) Description 01/01/2025 Telephone [facility] Cardiology [address] [facility] [address]th [place] [address] [place] [address] Neftaly Portillo MD [address] [facility] [address] [place] [address] Medical Records Request Social History Tobacco Use Types Packs/Day Years Used Date Smoking Tobacco: Former Cigarettes Q uit: 1972 Passive Smoke Exposure: Past Smokeless Tobacco: Never Alcohol Use Standard Drinks/Week Comments Yes 7 (1 standard drink = 0.6 oz pur e alcohol) [facility] Utilities Answer Date Recorded In the [...] often do you attend chur ch or yazidi services? Never 09/22/2023 Do you belong to any clubs o r organizations such as sikh groups, unions, fraternal or athletic groups, or [...] place to sleep or slept in a mcfp (including now)? No 09/22/2023 Personal Safety Answer Date Recorded Have you ever been in or are you currently in a harmful physical or emotional relationship or is someone making you feel afraid or unsafe? 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 Kind regardsSimona [phone] * Telephone Encounter - Fabiola Betancourt - 01/01/2025 8:59 AM CDT [facility] Pt's PCP calling stating they need echo from 11/25/24, office note from 11/19/24, and 08/2024 office visit faxed to [phone]. In case medical release is needed they will be faxing [place] documented in this encounter Plan of Treatment Upcoming Encounters Date Type Department Care Team (Latest Contact Info) Description 02/21/2025 9:45 AM CDT Hospital Encounter [facility] [address] [facility] [address] [place] [address] Neftaly Portillo MD [address] [facility] [address] [place] [address] Chest pain, unspecified type; Coronary artery disease of [place] artery of [place] heart with stable angina pectoris; Dizziness 02/21/2025 9:45 AM CDT - 02/21/2025 10:50 AM CDT Surgery [facility] [address] [facility] [address] [place] [id number] Neftaly Portillo MD [address] [facility] [address] [place] [address] LEFT HEART CATHETERIZATION WITH CORONARY ANGIOGRAPHY AND WITH OR WITHOUT LEFT VENTRICULOGRAM [id number] documented as of this encounter Visit Diagnoses Not on filedocumented in this encounter Care Teams Ferry Operator Relationship Specialty Start Date End Date Cheo Potts MD [address] [place], [place] [id number] PCP - General 01/03/17 Neftaly Portillo MD [address] [facility] [address] [place] [address] Consulting Physician Cardiology 11/15/18 Qi Norris MD [address] [address] Referring Physician Gastroenterology 05/10/23 Katharina Mac NP [address] [address] Nurse Practitioner Cardiology 11/21/23 Tree Ruiz MD PhD [address] [address] Consulting Physician Cardiology 11/21/23 [place] [address] [address] [facility] [address] [place] [address] Nurse Practitioner Certified Novell Administrator 09/18/24 [place] [address] [address] [facility] [address] [place] [address] Consulting Physician Pain Management 11/13/24 documented as of this encounter
--- OUTSIDE RECORDS SUMMARY | 2025-01-07 16:20 | XMS_ITS | Encounter Summary ---
Author Organization [facility] Address [address] [place] [address] Phone Care Team Providers Care Product Safety Lead Name Role Phone Cheo Potts MD Primary Care Provider Neftaly Portillo MD Unavailable [phone] Qi Norris MD Unavailable [phone] Katharina Mac SYNTHETIC PLASTERER Unavailable [phone] Tree Ruiz MD PhD Unavailable [phone] Oanh Trevizo SYNTHETIC PLASTERER Unavailable Torin Almodovar MD Unavailable Reason for Visit * Reason Onset Date Comments Dizziness 01/06/2025 Chest Pain 01/06/2025 Procedure 01/06/2025 [facility] Encounter Details Date Type Department Care Team (Late st Contact Info) Description 01/06/2025 Telephone [facility] Cardiology [address] [facility] [address] Medicine 8th [place] [address] [place] [address] Neftaly Portillo MD [address] [facility] [address] [place] [address] Dizziness; Chest Pain; Procedure ([facility]) Social History Tobacco Use Types Packs/Day Years Used Date Smoking Tobacco: Former Cigarettes Q uit: 1972 Passive Smoke Exposure: Past Smokeless Tobacco: Never Alcohol Use Standard Drinks/Week Comments Yes 7 (1 standard drink = 0.6 oz pur e alcohol) [facility] Utilities Answer Date Recorded In the past [...] often do you attend chur ch or christianity services? 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 It left him very dizzy and he fell to the ground. He confirmed that he did not loose any consciousness, but had to scoot across the floor on his back to call EMS. EMS said his vitals were fine and did not take him to the ER. He confirmed that he also had some chest pain as well. He confirmed that his BP today is: 128/74. Last stress test from February 2024. Images Interpretation Gated Spect imaging reveals a medium-sized fixed perfusion defect of moderate severity in the inferior and inferolateral louise. Wall motion abnormal with moderate hypokinesis in the inferior and inferolateral louise. Wall function abnormal with LVEF of 43% No LV dilatation present. No transischemic dilatation present. [employer] Myocardial perfusion imaging is abnormal. There is a medium-sized fixed perfusion defect of moderate severity in the inferior and inferolateral louise. Wall motion abnormal with moderate hypokinesis in the inferior and inferolateral louise. Wall function abnormal with LVEF of 43% Clinically normal ekg and electrocardiographically normal ekg. Compared to the prior study from 11/25/2021, the current study reveals NSC Discussed with Dr. Portillo and verbal orders given for pt to get labs: BMP, CBC, BNP and Troponin and he will need a cardiac cath. Called and spoke with pt who agreed to go to [facility] tomorrow to have the labs drawn. BMP, CBC, BNP and Troponin T orders placed in [facility] and faxed through [facility] to [facility] to: [phone]. LHC set up for 02/21/25 at [facility]. * Telephone Encounter - Vishal Boyer - 01/06/2025 10:23 AM CDT PT REQ CALL BACK REGARDING RECENT EPISODE AND PCP RECOMMENDATIONS, PLS CALL documented in this encounter Plan of Treatment Upcoming Encounters Date Type Department Care Team (Latest Contact Info) Description 02/21/2025 9:45 AM CDT Hospital Encounter [address] [place] [address] Neftaly Portillo MD [address] [facility] [address] [place] [address] Chest pain, unspecified type; Coronary artery disease of [place] artery [place] heart with stable angina pectoris; Dizziness 02/21/2025 9:45 AM CDT - 02/21/2025 10:50 AM CDT Surgery [address] [place] [address] Neftaly Portillo MD [address] [facility] [address] [place] [address] LEFT HEART CATHETERIZATION WITH CORONARY ANGIOGRAPHY AND WITH OR WITHOUT LEFT VENTRICULOGRAM [id number] Scheduled Orders Name Type Priority Associated Diagnoses Orde r Schedule Basic metabolic panel Lab Routine Coronary artery disease of [place] artery of [place] heart with stable angina pectoris Chest pain, unspecified type Cardiomyopathy, unspecified type (HCC) Chronic systolic heart failure (HCC) Dizziness Primary hypertension Expected: 01/07/2025, Expires: 01/06/2026 Troponin T high-sensitivity Lab Routine Coronary artery disease of [place] artery of [place] heart with stable angina pectoris Chest pain, unspecified type Cardiomyopathy, unspecified type (HCC) Expected: 01/07/2025, Expires: 01/06/2026 CBC without differential Lab Routine Coronary artery disease of [place] artery of [place] heart with stable angina pectoris Chest pain, unspecified type Cardiomyopathy, unspecified type (HCC) Chronic systolic heart failure (HCC) Dizziness Expected: 01/07/2025, Expires: 01/06/2026 Pro B-type natriuretic peptide Lab Routine Coronary artery disease of [place] artery of [place] heart with stable angina pectoris Chest pain, unspecified type Cardiomyopathy, unspecified type (HCC) Chronic systolic heart failure (HCC) Dizziness Primary hypertension Expected: 01/07/2025, Expires: 01/06/2026 documented as of this encounter Visit Diagnoses Diagnosis Coronary artery disease of [place] artery of [place] heart with stable angina pectoris- Primary Chest pain, unspecified type Cardiomyopathy, unspecified type (HCC) Chronic systolic heart failure (HCC) Chronic systolic heart failure Dizziness Dizziness and giddiness Primary hypertension Unspecified essential hypertension Chest pain, unspecified type Coronary artery disease of [place] artery of [place] heart with stable angina pectoris Dizziness Dizziness and giddiness Chest pain, unspecified type Coronary artery disease of [place] artery of [place] heart with stable angina pectoris Dizziness Dizziness and giddiness documented in this encounter Care Teams Product Safety Lead Relationship Specialty Start Date End Date Cheo Potts MD [address] [place] [address] PCP - General 01/03/17 Neftaly Portillo MD [address] [facility] [address] [place] [address] Consulting Physician Cardiology 11/15/18 Qi Norris MD [address] [facility] [address] [address] Referring Physician Gastroenterology 05/10/23 Katharina Mac NP 2 [facility] [address] [address] Nurse Practitioner Cardiology 11/21/23 Tree Ruiz MD PhD 2 [facility] [address] [place] [address] Consulting Physician Cardiology 11/21/23 [place] [address] [address] Nurse Practitioner Appraisal Technician 09/18/24 [place] [address] [address] [place] [address] Consulting Physician Pain Management 11/13/24 documented as of this encounter
--- OUTSIDE RECORDS SUMMARY | 2025-01-07 16:20 | XMS_ITS | Encounter Summary ---
Author Organization [facility] Address [address] [place] [address] Phone Care Team Providers Care Driver Service Technician Name Role Phone Cheo Potts MD Primary Care Provider Neftaly Portillo MD Unavailable Qi Norris MD Unavailable [phone] Katharina Mac NP Unavailable Tree Ruiz MD PhD Unavailable [phone] Oanh Trevizo TRANSPORTATION ASSOCIATE Unavailable [phone] Torin Almodovar MD Unavailable Encounter Details Date Type Department Care Team (Late st Contact Info) Description 11/25/2024 Results Follow-Up [facility] [address] [facility] [address] [place] [address] Zainab Francis, TRANSPORTATION ASSOCIATE [address] [facility] [address] [place] [address] Social History Tobacco Use Types Packs/Day Years Used Date Smoking Tobacco: Former Cigarettes Q uit: 1972 Passive Smoke Exposure: Past Smokeless Tobacco: Never Alcohol Use Standard Drinks/Week Comments Yes 7 (1 standard drink = 0.6 oz pur e alcohol) [facility] Utilities Answer Date Recorded In the past 12 months has [employer] electric, gas, oil, or water company threatened [...] often do you attend chur ch or spiritism services? 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 Sexual Orientation Not on file documented as of this encounter Plan of Treatment Upcoming Encounters Date Type Department Care Team (Latest Contact Info) Description 02/21/2025 9:45 AM CDT Hospital Encounter [address] [place] [address] Neftaly Portillo MD [address] [id number] Chest pain, unspecified type; Coronary artery disease of [place] artery of [place] heart with stable angina pectoris; Dizziness 02/21/2025 9:45 AM CDT - 02/21/2025 10:50 AM CDT Surgery [address] [place] [address] Neftaly Portillo MD [address] [id number] LEFT HEART CATHETERIZATION WITH CORONARY ANGIOGRAPHY AND WITH OR WITHOUT LEFT VENTRICULOGRAM [id number] documented as of this encounter Visit Diagnoses Not on filedocumented in this encounter Care Teams Driver Service Technician Relationship Specialty Start Date End Date Cheo Potts MD [address] [facility] [address] [place] [address] PCP - General 01/03/17 Neftaly Portillo MD [address] [facility] [address] [place] [address] Consulting Physician Cardiology 11/15/18 Qi Norris MD 2 [facility] [address] [place], [place] [id number] Referring Physician Gastroenterology 05/10/23 Katharina Mac NP 2 [facility] [address] [address] Nurse Practitioner Cardiology 11/21/23 Tree Ruiz MD PhD 2 [facility] [address] [place] [address] Consulting Physician Cardiology 11/21/23 [place] [address] [address] [facility] [address] [place] [address] Nurse Practitioner Primary Substance Abuse Counselor 09/18/24 [place] [address] [address] [facility] [address] [place] [address] Consulting Physician Pain Management 11/13/24 documented as of this encounter
--- OUTSIDE RECORDS SUMMARY | 2025-01-07 16:20 | XMS_ITS | Clinical Summary ---
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 History of alcohol abuse 07/16/2021 Hepatomegaly 07/16/2021 Chronic idiopathic constipation 07/16/2021 Gastroesophageal reflux disease without esophagi tis 07/16/2021 PAD (peripheral artery disease) 02/26/2019 Coronary artery disease invo lving [place] coronary artery of [place] heart without angina pectoris 01/30/2019 Overview (10/24/2022): Added automatically from request for surgery [id number] Sick sinus syndrome 04/20/2018 Overview (10/24/2022): Added automatically from request for surgery [id number] Last Assessment & Plan: Cardiac resynchronization defibrillator [...] 01/23/2008 Left bundle branch block (LBBB) 07/09/2003 Immunizations Immunization Administration Dates Next Due Covid-19, [...] Cologuard 1992 Immunochemical Fecal Occult Blood 1992 SARS-COV-2 Immunization ( season) 2024 06/13/2023, 05/16/2022, 12/04/2021, Additional history exists Colonoscopy 03/19/2025 03/19/2020, 04/04, 03/08/2012 Colorectal Cancer Screening 03/19/2025 Influenza Immunization (Season Ended) 2025 06/07/2023, 06/04/2023, 05/30/2022, Additional history exists Colonoscopy High Risk 03/19/2030 03/19/2020 , 04/13/2017, 03/08/2012 Zoster Immunization Completed 01/15/2023, Pneumococcal Immunization (50+ years) Completed 04/30/2023, 01/23/2015 Pneumococcal Immunization Combined Discontinued 04/30/2023, 01/23/2015 Respiratory Syncytial Virus (RSV) Immunization (Adult) Completed 04/30/2023 Hepatitis B Immunization Aged Out No longer eligible based on patient's age to complete this topic Human Papillomavirus (HPV) Immunization Aged Out No longer eligible based [...] to Health Maintenance Results * COLONOSCOPY (03/19/2020) Marques Barksdale DO PROCEDURE/MINOR SURGICAL ORDERA BLES Final Result from Last 3 Months or Most Recently Relevant to Health Maintenance Insurance MEDICARE Find That File, [place] [id number] [facility] [[email or web address]] Care Teams Imaging Clerk Relationship Specialty Start Date End Date Cheo Potts MD [address] [place] [address] PCP - General Family Medicine 11/09/15 Marques Barksdale DO [address] [place] [address] Gastroenterology 11/12/15 Barbara Warner APRN, STATISTICS INTERN [address] [place] [address] Nurse Practitioner Advanced Practice Nurse 10/24/22 Qi Norris MD [address] [place] [address] Consulting Physician Gastroenterology 05/12/22
--- OUTSIDE RECORDS SUMMARY | 2025-01-07 16:20 | XMS_ITS | Clinical Summary ---
Author Organization [facility] Address [address] [place] [address] Care Team Providers Care Mathematics Academic Chair Name Role Phone Cheo Potts MD Primary Care Provider Neftaly Portillo MD Unavailable [phone] Qi Norris MD Unavailable [phone] Katharina Mac INTERACTIVE MEDIA MARKETING STRATEGIST Unavailable Tree Ruiz MD PhD Unavailable [phone] Oanh Trevizo INTERACTIVE MEDIA MARKETING STRATEGIST Unavailable [phone] Torin Almodovar MD Unavailable Allergies Active Allergy Reactions Criticality Noted Date Comments Celecoxib Other (See comments) Low Altered depth perception Ciprofloxacin Muscle pain,Other (S ee comments) Medium 12/06/2017 Muscle weakness FEELS BAD Latex Rash,Itching Medium 04/11/2017 Medications calcium carbonate-vitami n D3 1,500 mg (600mg elemental) -800 unit per tabletIndication s:Hypocalcemia Prevention,Preve ntion of Vitamin D Deficiency 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 mouth assistant baseball coach 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 Active coenzyme Q10 200 mg capsuleIndicatio ns:supplement Take 1 capsule (200 mg total) by mouth nightly Active magnesium oxide 200 mg tablet,chewableI ndications:suppl ement Take 200 mg by mouth assistant baseball coach 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 Active polyethylene glycol (MIRALAX) 17 gram packetIndication s:constipation Take 1 packet (17 g total) by mouth nightly Active multivitamin no.44-vit D3-K 1,000-800 unit-mcg capsuleIndicatio ns:Mineral Deficiency Prevention,Vitam in Deficiency Prevention 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 mouth assistant baseball coach 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 Active azelastine (ASTELIN) 137 mcg [...] 1 tablet (5 mg total) by mouth assistant baseball coach 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 2 Active sucralfate (CARAFATE) 1 [...] needed for pain 90 tablet 5 Active acetaminophen-co deine (TYLENOL with CODEINE #3) 300-30 mg per tabletIndication s:Lumbar radiculopathy,DD D (degenerative disc disease), lumbar,Lumbar stenosis with neurogenic claudication,Spi nal stenosis of lumbar region without neurogenic claudication,Lum bar facet arthropathy 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 mouth every 8 (eight) hours as needed for pain 90 tablet 1 5 Active busPIRone (BUSPAR) 15 mg tabletIndication s:Generalized Anxiety Disorder Take 5 mg by mouth 2 (two) times a day 0 025 Discontin ued(Dupli aram order) spironolactone (ALDACTONE) 25 mg tablet Take 0.5 tablets (12.5 mg total) by mouth daily Taking half of pill right now 12.5 daily 15 tablet 11 5 025 Discontin ued(Thera py completed ) acetaminophen-co deine (TYLENOL with CODEINE #3) 300-30 mg per tabletIndication s:Lumbar radiculopathy,DD D (degenerative disc disease), lumbar,Lumbar stenosis with neurogenic claudication,Spi nal stenosis of lumbar region without neurogenic claudication,Lum bar facet arthropathy 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 mouth every 8 (eight) hours as needed for pain 90 tablet 5 025 Discontin ued([facility]) Hospital, Clinic, or Other Facility Administered Medication [...] GI bleeding 02/08/2023 Lumbar facet arthropathy 09/20/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 3 Lumbar radiculopathy 09/13/2022 Chronic midline low back pain without sciatica 0 09/13/2022 DDD (degenerative disc disease), lumbar 09/13/19 23 Sacroiliitis 09/13/2022 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] Encounters Date Type Department Care Team Description 01/07/2025 12:45 PM CDT Hospital Encounter [facility] [address] [place], [place] [id number] Oanh Trevizo NP Spinal stenosis of lumbar region without neurogenic claudication (Primary Dx); Lumbar radiculopathy; Primary hypertension 01/06/2025 Telephone [facility] Cardiology [facility] 8th [place] [address] [place] [address] Neftaly Portillo MD Dizziness; Chest Pain; Procedure (C) 01/01/[address] 8th [place] [address] [place] [address] Neftaly Portillo MD Medical Records Request 12/31/2024 Telephone [facility] [address] [place] [address] Michelle Elliott Med Management (Tramadol after seizure) 12/18/2024 9:45 AM CDT Office Visit [facility] Cardiothoracic Surgery [address] [place] [address] 8th Floor [address] Room [address] [address] Dorothea Dick MD Aneurysm of ascending aorta without rupture (Primary Dx) 12/18/2024 Orders Only [facility] Cardiothoracic Surgery [address] [place] [address] 8th Floor [address] Room [address] [address] Dorothea Dick MD Aneurysm of ascending aorta without rupture (Primary Dx) 12/06/2024 Results Follow-Up [facility] Cardiology [address] [facility] Medical Office Building [address] [place] [address] Mae Villanueva RMA 12/03/2024 Results Follow-Up [facility] Cardiology [address] [place] [address] Zainab Francis NP 11/25/2024 1:00 PM CDT Office Visit [facility] Orthopaedic Surgery [address] [facility] Medical Office Building [address] [place] [address] Bell Smith PA Primary osteoarthritis of both knees (Primary Dx) 11/25/2024 11:30 AM CDT Ancillary Procedure [facility] [address] [facility] [address] [place] [address] Left ventricular dysfunction 11/25/2024 Results Follow-Up [facility] Cardiology [address] [facility] [address] [place] [address] Zainab Francis NP 11/19/2024 1:00 PM CDT Office Visit [facility] Cardiology [address] [facility] [address] [place] [address] Zainab Francis NP Palpitations (Primary Dx); Left ventricular dysfunction; Aneurysm of ascending aorta without rupture; Paroxysmal atrial fibrillation (HCC); Coronary artery disease involving coyote valley coronary artery of coyote valley heart without angina pectoris; Cardiomyopathy, unspecified type (HCC); Primary hypertension; Mixed hyperlipidemia; History of alcohol abuse; Obstructive sleep apnea syndrome 11/15/2024 Orders Only [facility] Cardiology [address] [place] [address] Medical Office Building [address] [place] [address] Tree Ruiz MD PhD 11/13/2024 12:38 PM CDT - 11/13/2024 11:59 PM CDT Hospital Encounter [facility] [address] [place] [address] Oanh Trevizo NP Spinal stenosis of lumbar region without neurogenic claudication (Primary Dx); Lumbar radiculopathy; Chronic midline low back pain without sciatica; Sacroiliitis; Primary hypertension Discharge Disposition: Discharge to home or self care 11/05/2024 10:30 AM CUSTOMER ENGINEER Telemedicine [facility] Neuro Sleep [address] [facility] 6th Floor [address] [place] [address] Mauro Zamora MD Obstructive sleep apnea syndrome (Primary Dx); Paroxysmal atrial fibrillation (HCC); Left ventricular dysfunction 11/04/2024 3:20 PM CUSTOMER ENGINEER - 11/04/2024 11:59 PM CUSTOMER ENGINEER Hospital Encounter [facility] [address] [place] [address] Dorothea Dick MD Sinus of Valsalva aneurysm Discharge Disposition: Discharge to home or self care 10/30/2024 1:30 PM CUSTOMER ENGINEER Office Visit [facility] Cardiology [address] [facility] 8th [place] [address] [place] [address] Johnna Navarrete NP Stenosis of carotid artery, unspecified laterality (Primary Dx) 10/30/2024 1:00 PM CUSTOMER ENGINEER Ancillary Procedure [facility] Cardiology [address] [facility] 8th [place] [address] [place] [address] Cardiomyopathy, unspecified type (HCC) (Primary Dx); Fitting [...] (heart failure with reduced ejection fract ion) ([facility]) EF 42% Carotid artery disease CHF (congestive heart failure) ([facility]) Sleep apnea Heart disease Heart failure (HCC) [...] drink = 0.6 oz pur e alcohol) [facility] Utilities Answer Date Recorded In the past 12 months has [employer], gas, oil, or water [employer] threatened to shut off services in your [...] often do you attend chur ch or mu-ism services? Never 09/22/2023 Do you belong to any clubs o r organizations such as episcopalian groups, unions, fraternal or athletic groups, or [...] on file Legal Sex Male 3:18 AM CUSTOMER ENGINEER Gender Identity Male 11/05/2020 12:05 PM CUSTOMER ENGINEER Sexual Orientation Not on file Obstetrics History Last Filed Vital Signs Vital Sign Reading Time Taken Comments Blood Pressure 119/84 01/07/2025 1:04 PM CDT Pulse 75 01/07/2025 1:04 PM CDT Temperature 36.7 C (98.1 F) 11/19/2024 12:53 PM CDT Respiratory Rate 17 01/07/2025 1:04 PM CDT Oxygen Saturation 98% 01/07/2025 1:04 PM CDT Inhaled Oxygen Concentration - - Weight 82 kg (180 lb 12.8 oz) 12/18/2024 9:53 AM CDT Height 175.3 cm (5' 9 ) 12/18/2024 9:53 AM CDT Body Mass Index 26.7 12/18/2024 9:53 AM CDT Plan of Treatment Upcoming Encounters Date Type Department Care Team (Latest Contact Info) Description 02/21/2025 9:45 AM CDT Hospital Encounter [address] [place] [phone] Neftaly Portillo MD [address] [id number] Chest pain, unspecified type; Coronary artery disease of coyote valley artery of coyote valley heart with stable angina pectoris; Dizziness 02/21/2025 9:45 AM CDT - 02/21/2025 10:50 AM CDT Surgery [address] [place] [phone] Neftaly Portillo MD [address] [address] LEFT HEART CATHETERIZATION WITH CORONARY ANGIOGRAPHY AND WITH OR WITHOUT LEFT VENTRICULOGRAM [address] Health Maintenance Due Date Last Done Comments [...] 05/31/2021, Additional history exists Fall Risk Assessment 01/07/2026 01/07/2025 Abdominal Aortic Aneurysm (A AA) Screen Completed 05/18/2021, 02/18/2019 Medical Devices Implanted Type Area Medical Accounts Receivable Specialist Device Identifier Shelf Expiration Date Model / Serial / Lot Medtronic Cardiac Rhythm Mgmt 5076-52 Capsurefix Novus 6.2fr 2mm 52cm Bipolar Screw In Implantable Latex Free - [id number] - [id number] Implanted:Qty: 1 on 04/24/2018 by Osmany Pina MD at [facility] Pacemaker Left: Heart Medtronic Cardiac Rhythm Mgmt [id number] 03/08/2020 5076-52 / [id number] / Medtronic Cardiac Rhythm Mgmt 5076-45 Capsurefix Novus Od6.2 Fr; Odsec2 Mm L45 Cm Bipolar; Screw In; Im - [id number] - [id number] Implanted:Qty: 1 on 04/24/2018 by Osmany Pina MD at [facility] Pacemaker Left: Heart Medtronic Cardiac Rhythm Mgmt [id number] 02/13/2020 5076-45 / [id number] / Medtronic Inc [id number] Attain Performa Starfix 5.3fr 5.1fr 88cm Quadripolar Is4-Llll Latex Free - [id number] - [id number] Implanted:Qty: 1 on 04/24/2018 by Osmany Pina MD at [facility] Pacemaker Left: Heart Medtronic Inc 02/15/2020 [id number] / [id number] / Pacemaker Cardiac 11mm 19.9cu Cm 46.5x59mm Rain Pink - [id number] - [id number] Implanted:Qty: 1 on 04/24/2018 by Osmany Pina MD at [facility] Pacemaker Left: Chest Medtronic Inc 06/17/2019 [id number] / [id number] / [employer] Device Clsr Perclose Prostyle Sut-Mediatd Closure-Repair Sys 13343-12 - [id number] - [id number] Implanted:Qty: 1 on 09/20/2023 by Antoine Nelson MD at [facility] Vascular Closure Device N/A: Femoral Vein [employer] 05/04/2025 57097-60 / [id number] / [id number] Procedures Procedure Name Priority Date/Time Associated Diagnosis Comments BASIC METABOLIC PANEL Routine 12/05/2024 12:13 PM CDT Coronary artery disease involving coyote valley coronary artery of coyote valley heart without angina pectoris Palpitations [place] ARTHROCENTESIS ASPIR&/INJ MAJOR JT/BURSA W/O US Routine 11/25/2024 1:00 PM CDT Primary osteoarthritis of both knees TRANSTHORACIC ECHO (TTE) COMPLETE W DOPPLER/CF WO CONTRAST Routine 11/25/2024 12:41 PM CDT Left ventricular dysfunction CBC WITH AUTO DIFFERENTIAL Routine 11/22/2024 12:30 PM CDT Coronary artery disease involving coyote valley coronary artery of coyote valley heart without angina pectoris BASIC METABOLIC PANEL Routine 11/22/2024 12:30 PM CDT Coronary artery disease involving coyote valley coronary artery of coyote valley heart without angina pectoris ECG 12-LEAD Routine 11/19/2024 1:48 PM CDT Palpitations DEVICE CHECK - REMOTE Routine 11/15/2024 9:36 PM CDT CTA CHEST W CONTRAST Schedule Routine, Read Routine (OP Routine) 11/04/2024 4:01 PM CUSTOMER ENGINEER Sinus of Valsalva aneurysm POCT CREATININE - DEVICE Routine 11/04/2024 3:40 PM CUSTOMER ENGINEER DEVICE CHECK - IN OFFICE Routine 10/30/2024 12:42 PM CUSTOMER ENGINEER Cardiomyopathy, unspecified type (HCC) Fitting and [...] CDT) Glucose 63(L) 65 - 99 mg/dL [facility] Comment: Fasting reference interval BUN 15 7 - 25 mg/dL [facility] Creatinine 0.73 0.70 - 1.22 mg/dL [facility] eGFR 91 > OR = 60 mL/min/1.7 3m2 [facility] BUN/creat ratio SEE NOTE: 6 - 22 (calc) [facility] Comment: Not Reported: BUN and Creatinine are within reference range. Sodium 131(L) 135 - 146 mmol/L [facility] Potassium, pl 4.3 3.5 - 5.3 mmol/L [facility] Luis Chloride 96(L) 98 - 110 mmol/L [facility] CO2 29 20 - 32 mmol/L [facility] Calcium 9.1 8.6 - 10.3 mg/dL [facility] Blood 12/05/2024 12:1 3 PM CDT 12/05/2024 12:13 PM CDT us Zainab Francis INTERACTIVE MEDIA MARKETING STRATEGIST LAB BLOOD ORDERABLES Final [facility] [address] [place] [address] * [place] ARTHROCENTESIS ASPIR&/INJ MAJOR JT/BURSA W/O US (11/25/2024 [...] PM CDT Narrative 12/02/2024 11:23 PM CDT Heart [facility] Cardiac Diagnostic Lab [address], [address] [place] [address] Transthoracic Echocardiographic Report Patient Name: DONALD FATIMA MI : 1940 (84y 7m) Gender: M Study Date: 11/25/2024 12:03:57 PM Ht(Inch): 69 Wt(Lb): 182.1 BSA: 2.01 Nutrition Partner: Francisca Sánchez RDCS Location: [facility] [address] Heart Rate: 74 BMI: 26.89 BP: 100 [...] LA Length 4C 4.17 cm AI Decel [place]han 1.91 m/s2 LA Length 2C 4.69 cm [...] Procedure Note Neftaly Portillo MD - 12/02/2024 [facility] Cardiac Diagnostic Lab [address], [address] [place] [address] Transthoracic Echocardiographic Report Patient Name: DONALD FATIMA MI : 1940 (84y 7m) Gender: M Study Date: 11/25/2024 12:03:57 PM Ht(Inch): 69 Wt(Lb): 182.1 BSA: 2.01 Nutrition Partner: Francisca Sánchez RDCS Location: [facility] Heart Rate: 74 BMI: 26.89BP: 100 / [...] [ -25.0 - -18.0 ] AI Decel [id number] sec LA Length 4C 4.17 cm AI Decel Slope1.91 m/s2 LA Length 2C 4.69 cm AI LTQ718.96 msec LA Volume BP 45.23 ml MV [...] [ 3.10 - 3.70 ] MV Decel Lpzi506.67 msec [ 104.00 - 258.00 ] Ao [...] with auto differential (11/22/2024 12:30 PM CDT) Pathologist [facility] WBC 5.1 3.8 - 10.8 Thousand/u L [facility] RBC, POC 4.49 4.20 - 5.80 Million/uL [facility] Hgb 14.2 13.2 - 17.1 g/dL [facility] Hct 42.4 38.5 - 50.0 % [facility] MCV 94.4 80.0 - 100.0 fL [facility] MCH 31.6 27.0 - 33.0 pg [facility] MCHC 33.5 32.0 - 36.0 g/dL [facility] Comment: For adults, a slight decrease in the calculated MCHC value (in the range of 30 to 32 g/dL) is most likely not clinically significant; however, it should be interpreted with caution in correlation with other red cell parameters and the patient's clinical condition. Rdw 12.1 11.0 - 15.0 % [facility] Platelets 279 140 - 400 Thousand/u L [facility] MPV 8.9 7.5 - 12.5 fL [facility] Neutrophils, abs 2,392 1,500 - 7,800 cells/uL [facility] Lymphocytes, abs 2,035 850 - 3,900 cells/uL [facility] Monocyte abs 515 200 - 950 cells/uL [facility] Eosinophils, abs 97 15 - 500 cells/uL [facility] Basophils, abs 61 0 - 200 cells/uL [facility] Neutrophils 46.9 % [facility] Lymphocyte pct 39.9 % [facility] Monocytes 10.1 % [facility] Eosinophils 1.9 % [facility] Basophils 1.2 % [facility] Blood 11/22/2024 12:3 0 PM CDT 11/22/2024 12:30 PM CDT us Zainab Francis INTERACTIVE MEDIA MARKETING STRATEGIST LAB BLOOD ORDERABLES Final Re sult [facility] [address] [place] [address] * (ABNORMAL) Basic metabolic panel (11/22/2024 12:30 PM CDT) Pathologist [facility] Glucose 93 65 - 99 mg/dL [facility] [employer] Luis Comment: Fasting reference interval BUN 11 7 - 25 mg/dL [facility] [employer] Creatinine 0.71 0.70 - 1.22 mg/dL [facility] [employer] Luis eGFR 92 > OR = 60 mL/min/1.7 3m2 [facility] BUN/creat ratio SEE NOTE: 6 - 22 (calc) [facility] Comment: Not Reported: BUN and Creatinine are within reference range. Sodium 130(L) 135 - 146 mmol/L [facility] [employer] Potassium, pl 4.4 3.5 - 5.3 mmol/L [facility] Chloride 95(L) 98 - 110 mmol/L [facility] CO2 29 20 - 32 mmol/L [facility] Calcium 8.9 8.6 - 10.3 mg/dL [facility] [employer] Blood 11/22/2024 12:3 0 PM CDT 11/22/2024 12:30 PM CDT Zainab Francis INTERACTIVE MEDIA MARKETING STRATEGIST LAB BLOOD ORDERABLES Final Re sult [facility] [address] [place] [address] * ECG 12 lead (11/19/2024 1:48 PM CDT) Zainab Francis INTERACTIVE MEDIA MARKETING STRATEGIST ECG ORDERABLES Final Result * DEVICE CHECK [...] is programmed Adaptive, currently 5.5/0.4. Presenting Rhythm (AZ) Atrial Sensing-BiVentricular Pacing (-BiVP) --- /BVP 63 [...] output is programmed Adaptive, currently5.5/0.4. Presenting Rhythm (AZ) Atrial Sensing-BiVentricular Pacing (-BiVP) --- /BVP 63 bpm. Arrhythmic events (AE) No new arrhythmic events in monitoring period --- Since 10/30/24: No AHRor VHR episodes. Transmission Information (TI) Device Summary Report Follow Up (FU) Patient's primary treating physician will be apprised of findings Tree Ruiz MD PhD [facility] CARDIAC SERVICES PROCEDURES Final Result * CTA Chest W Contrast (11/04/2024 4:01 PM CUSTOMER ENGINEER) Anatomical Region Laterality Modality Chest N/A Computed Tomogra phy 11/04/2024 7:27 PM CUSTOMER ENGINEER Impressions 11/04/2024 7:27 PM CUSTOMER ENGINEER Stable dilatation of the aortic root measuring up to 49 mm, previously 49 mm. Electronically signed by: Iam Piper MD, PHD Narrative 11/04/2024 7:27 PM CUSTOMER ENGINEER EXAMINATION: CTA CHEST W CONTRAST HISTORY: [...] Iam Piper MD, PHD Dorothea Dick MD G CT PROCEDURES Final Result * POCT creatinine (11/04/2024 3:40 PM CUSTOMER ENGINEER) Creatinine POC 0.9 0.8 - 1.3 mg/dL Blood 11/04/2024 3:40 PM CUSTOMER ENGINEER 11/04/2024 3:40 PM CUSTOMER ENGINEER Dorothea Dick MD LAB POCT ORDERABLES - DEVICE Fin al Result [facility] Department [place] [address] * DEVICE CHECK - IN OFFICE (10/30/2024 12:42 PM CUSTOMER ENGINEER) Anatomical Region Laterality Modality Other 10/30/2024 2:00 AM CUSTOMER ENGINEER Narrative 11/08/2024 9:01 AM CUSTOMER ENGINEER Interpretation Summary: Battery and Leads (BL) Normal parameters identified on lead(s) Less than 1 year of battery longevity noted --- 8 months to NEWS PRODUCTION ASSISTANT Presenting Rhythm (AZ) Atrial Pacing-BiVentricular Pacing (AP-BiVP) Arrhythmic events (AE) Nonsustained VT event(s) identified Anticoagulation (AC) Patient prescribed Apixaban (Eliquis) Patient on anticoagulant therapy Procedure Note Tree Ruiz MD PhD - 11/08/2024 Interpretation Summary: Battery and Leads (BL) Normal parameters identified on lead(s) Less than 1 year of battery longevity noted --- 8 months to NEWS PRODUCTION ASSISTANT Presenting Rhythm (AZ) Atrial Pacing-BiVentricular Pacing (AP-BiVP) Arrhythmic events (AE) [...] Recently Relevant to Health Maintenance Insurance MEDICARE [facility] MEDICARE SUPPLEMENT MEDICARE MEDICARE [facility] MEDICARE [facility] MEDICARE SUPPLEMENT MEDICARE [facility] MEDICARE SUPPLEMENT Advance Directives For more information, please contact: [phone] * Full Code (Latest Code Status on File) Date Activated Date Inactivated Comments 09/20/2023 6:27 PM 09/21/2023 7:45 PM * Full Code Date Activated Date Inactivated Comments 04/24/2018 5:50 PM 04/27/2018 2:46 PM * Full Code Date Activated Date Inactivated Comments 03/24/2018 11:24 PM 03/25/2018 4:51 PM Care Teams Mathematics Academic Chair Relationship Specialty Start Date End Date Cheo Potts MD [address] [place] [address] PCP - General 01/03/17 Neftaly Portillo MD [address] [facility] [address] [place] [address] Consulting Physician Cardiology 11/15/18 Qi Norris MD 2 [facility] [address] [place] [address] Referring Physician Gastroenterology 05/10/23 Katharina Mac NP [address] [address] Nurse Practitioner Cardiology 11/21/23 Tree Ruiz MD PhD [address] [address] Consulting Physician Cardiology 11/21/23 [place] [address] [facility] [address] [place] [address] Nurse Practitioner Golf Cart Maker 09/18/24 [place] [address] [facility] [address] [place] [address] Consulting Physician Pain Management 11/13/24
--- OUTSIDE RECORDS SUMMARY | 2025-01-07 16:20 | XMS_ITS | Encounter Summary ---
Author Organization [facility] Healthcare Address [address] [place] [address] Care Team Providers Care Lens Grinding Machine Operator Name Role Phone Cheo Potts MD Primary Care Provider Neftaly Portillo MD Unavailable [phone] Qi Norris MD Unavailable [phone] Katharina Mac TELEHEALTH DIRECTOR Unavailable Tree Ruiz MD PhD Unavailable [phone] Oanh Trevizo TELEHEALTH DIRECTOR Unavailable [phone] Torin Almodovar MD Unavailable Reason for Visit * Reason Comments Med Management Back Pain Extremity Pain Shoulder Pain Encounter Details Date Type Department Care Team (Latest Contact Info) Description 01/07/2025 12:45 PM CDT Hospital Encounter [facility] [address] [place], [place] [id number] Oanh Trevizo TELEHEALTH DIRECTOR [address] [id number] Spinal stenosis of lumbar region without neurogenic claudication (Primary Dx); Lumbar radiculopathy; Primary hypertension Social History Tobacco Use Types Packs/Day Years Used Date Smoking Tobacco: Former Cigarettes Q uit: 1972 Passive Smoke Exposure: Past Smokeless Tobacco: Never Alcohol Use Standard Drinks/Week Comments Yes 7 (1 standard drink = 0.6 oz pur e alcohol) [facility] Utilities Answer Date Recorded In the past 12 months has [employer], [employer], or [employer] threatened to shut off services in your [...] often do you attend chur ch or mosque services? Never 09/22/2023 Do you belong to any clubs o r organizations such as druze groups, unions, fraternal or athletic groups, or [...] place to sleep or slept in a longterm (including now)? No 09/22/2023 Personal Safety Answer Date Recorded Have you ever been in or are you currently in a harmful physical or emotional relationship or is someone making you feel afraid or unsafe? 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 Patient Name: Cole Fatima : 1940 Today's Date: 01/07/2025 PCP: Cheo Potts MD Referring: Torin Almodovar* Chief Complaint Patient presents with Med Management Back Pain Extremity Pain Shoulder Pain HPI: Cole Fatima is a 84 y.o. male seen today for follow up. He presents with ongoing graduallyimproving L>R sided low back pain that radiates into buttocks and hips. He had left SIJ injection on 08/20/24 and reports 60-70% ongoing pain relief. He reports he has been having some dizziness and wondering if due to gabapentin is causing this. He reports that he tries to stay active and worksout 4-5 days/week and also walks regularly. He continues to follow up with cardiology and CV and GIand liver specialist regularly for PVD and GI issues. His pain began in 2004 while trying to get into a bed at his friends home. The pain is described asconstant aching. It rates 2/10 on the numeric pain scale. Provocative factors include increased activity, lifting, turning the wrong way. Alleviating factors include sitting and resting and forward flexion at waist and cold packs and prn use of gabapentin and prn use of tramadol. Patient denies anymotor weakness or bowel/bladder issues. He is here today for follow up and medication refill. Previous treatments: ESIs (marginally helpful); L4-5 RADHA tip left 05/24/23; bilateral L3-4 and L4-5 MILD 07/18/23; left L3-4 and L4-5 TFESI 04/09/24 (not helpful); left SIJ 05/20/24 (70-80%); 08/20/24 (70%) Previous medications: medrol dosepack (helpful while on it) Allergies Allergen Reactions Ciprofloxacin Muscle pain and Other (See comments) Muscle weakness FEELS BAD Latex Rash and Itching Celecoxib Other (See comments) Altered depth perception Past Medical History: Diagnosis Date Atrial fibrillation (HCC) s/p ablation in 2006 Awareness under anesthesia during ablation BPPV (benign paroxysmal positional vertigo) Cardiomyopathy ([facility]) Carotid artery disease CHF (congestive heart failure) ([facility]) Coronary artery disease GERD (gastroesophageal reflux disease) Heart disease Heart failure ([facility]) HFrEF (heart failure with reduced ejection fraction) ([facility]) EF 42% Hyperlipidemia Hypertension OA (osteoarthritis) PUD (peptic ulcer disease) PVC's (premature ventricular contractions) Sleep apnea Spinal stenosis Patient Active Problem List Diagnosis Stenosis of carotid artery Left bundle branch block (LBBB) Palpitations Chest pain Ascending aortic aneurysm Left ventricular dysfunction Obstructive sleep apnea syndrome Shortness of breath at rest Cardiomyopathy (HCC) Chronic pain of both knees Dizziness and giddiness Hearing loss CAD (coronary artery disease) Vestibular vertigo Impacted cerumen Dizziness PVC's (premature ventricular contractions) Chronic systolic heart failure ([facility]) BPPV (benign paroxysmal positional vertigo) Hyperlipidemia GERD (gastroesophageal reflux disease) HTN (hypertension) Sick sinus syndrome (HCC) Atrial fibrillation (CMS/HCC) (HCC) Coronary artery disease involving nulato coronary artery of nulato heart without angina pectoris Abnormal EKG PAD (peripheral artery disease) High risk medication use Inguinal hernia Myopia Referred otalgia Vitreous degeneration Chronic idiopathic constipation Hepatomegaly History of alcohol abuse Iliac artery aneurysm superintendent terminal current use of anticoagulant Lumbar radiculopathy Chronic midline low back pain without sciatica DDD (degenerative disc disease), lumbar Sacroiliitis Lumbar facet arthropathy GI bleeding Spinal stenosis of lumbar region without neurogenic claudication Presence of Watchman left atrial appendage closure device Neck pain, chronic Past Surgical History: Procedure Laterality Date BACK SURGERY CARDIAC CATHETERIZATION CHOLECYSTECTOMY 2011 FLUORO GUIDED ASPIRATION TMJ LEFT Left 07/18/2023 HERNIA REPAIR INSERT / REPLACE / REMOVE PACEMAKER Social History Tobacco Use Smoking status: Former Current packs/day: 0.00 Types: Cigarettes Quit date: 1971 Years since quittin.3 Passive exposure: Past Smokeless tobacco: Never Substance and Sexual Activity Drug use: No Sexual activity: Defer Alcohol Use: Not At Risk (10/16/2023) AUDIT-C Frequency of Alcohol Consumption: Monthly or less Average Number of Drinks: 1 or 2 Frequency of Binge Drinking: Never Family History Problem Relation Age of Onset Stroke Mother Family history of stroke - (Added by TW Conv)/Family history of stroke - (Added by TW Conv) Heart attack Father Family history of myocardial infarction - (Added by TW Conv)/Family history of myocardial infarction - (Added by TW Conv) Stroke Father Family history of stroke - (Added by TW Conv)/Family history of stroke - (Added by TW Conv) Heart attack Sister Family history of myocardial infarction - (Added by TW Conv) Heart failure Sister Family history of heart failure - (Added by TW Conv) Heart attack Sister Family history of myocardial infarction - (Added by TW Conv) Heart failure Sister Family history of heart failure - (Added by TW Conv) Heart disease Brother Family history of cardiac disorder - (Added by TW Conv) Heart disease Brother Family history of cardiac disorder - (Added by TW Conv) Hypotension Other Family history of hypotension - (Added by TW Conv) Hypotension Other Family history of hypotension - (Added by TW Conv) Anesthesia problems Neg Hx Malig Hypertension Neg Hx Malig Hyperthermia Neg Hx Pseudochol deficiency Neg Hx HOME MEDICATIONS : acetaminophen (TYLENOL ARTHRITIS PAIN ORAL) acetaminophen-codeine (TYLENOL with CODEINE #3) 300-30 mg per tablet Anucort-HC 25 mg suppository atorvastatin (LIPITOR) 20 mg tablet azelastine (ASTELIN) 137 mcg (0.1 %) nasal spray busPIRone (BUSPAR) 5 mg tablet calcium carbonate-vitamin D3 1,500 mg (600mg elemental) -800 unit per tablet cholecalciferol 400 unit capsule coenzyme Q10 200 mg capsule dapagliflozin propanediol (FARXIGA) 10 mg tablet finasteride (PROSCAR) 5 mg tablet fluocinolone in oil (DermOtic) 0.01 % drops gabapentin (NEURONTIN) 100 mg capsule ketoconazole (NIZORAL) 2 % cream loratadine 10 mg capsule magnesium oxide 200 mg tablet,chewable multivitamin no.44-vit D3-K 1,000-800 unit-mcg capsule mupirocin (BACTROBAN) 2 % ointment omeprazole (PriLOSEC) 40 mg capsule polyethylene glycol (MIRALAX) 17 gram packet prochlorperazine (COMPAZINE) 10 mg tablet sacubitriL-valsartan (ENTRESTO) 24-26 mg tablet sotaloL (BETAPACE) 120 mg tablet traMADoL (ULTRAM) 50 mg tablet triamcinolone (KENALOG) 0.1 % cream turmeric root extract 500 mg capsule sucralfate (CARAFATE) 1 gram tablet Review of Systems Review of Systems Constitutional: Negative. HENT: Negative. Eyes: Negative. Respiratory: Negative. Cardiovascular: Negative. Gastrointestinal: Negative. Genitourinary: Negative. Musculoskeletal: Positive for arthralgias (left hip pain), back pain and neck pain. Skin: Negative. Neurological: Negative. Psychiatric/Behavioral: Negative. Physical Exam Vitals: 01/07/25 1304 BP: 119/84 Pulse: 75 Resp: 17 SpO2: 98% Estimated body mass index is 26.7 kg/m?? as calculated from the following: Height as of 12/18/24: 175.3 cm (5' 9 ). Weight as of 12/18/24: 82 kg (180 lb 12.8 oz). Physical Exam Vitals and nursing note reviewed. Constitutional: Appearance: Normal appearance. HENT: Head: Normocephalic. Nose: Nose normal. Mouth/Throat: Mouth: Mucous membranes are moist. Eyes: Extraocular Movements: Extraocular movements intact. Conjunctiva/sclera: Conjunctivae normal. Pulmonary: Effort: Pulmonary effort is normal. Abdominal: General: Abdomen is flat. Palpations: Abdomen is soft. Musculoskeletal: Cervical back: Decreased range of motion. Lumbar back: Decreased range of motion. Back: Skin: General: Skin is warm and dry. Neurological: General: No focal deficit present. Mental Status: He is alert and oriented to person, place, and time. Psychiatric: Mood and Affect: Mood normal. Behavior: Behavior normal. Assessment Encounter Diagnoses Name Primary? Spinal stenosis of lumbar region without neurogenic claudication Yes Lumbar radiculopathy Primary hypertension Review of Data: Clinical evaluation forms were reviewed including the PEG Scale Assessing Pain Intensity and Interference with score of: 3 (previous sore 2.34) Current Opioid Misuse Measure (COMM) reviewed with score of: 5 (previous score: 8) (> or equal to 9 is higher risk of opioid misuse) Oswestry Low Back Disability Questionnaire reviewed with score of: (previous score 15/50) [place] Prescription Drug Monitoring Reviewed and was consistent with office guidelines and policies. Most recent Urine Toxicology findings reviewed. -I reviewed 09/18/24 UDS, appropriate for prescribed tramadol and metabolites and small amount of THC. -I reviewed 10/10/23 UDS, appropriate for prescribed tramadol and metabolites. Medical Decision Making / Plan: Pre-hypertension/Hypertension: The patient has been informed that they may have pre-hypertension orhypertension based on a blood pressure reading in the office today. I recommend that the patient call their primary care provider or a physician of their choice this week to arrange follow up for further evaluation of possible pre-hypertension or hypertension. I have also recommended that they try weight loss and exercise for management. Tobacco Screening: Cole Fatima was screened for tobacco use. Patient is not a tobacco user. Tobacco counseling not applicable. I saw Cole Fatima today for follow up and medication refill. I reviewed recent imaging (see note below). He presents with ongoing gradually improving L>R sided low back pain that radiatesinto buttocks and hips. He had left SIJ injection on 08/20/24 and reports 60-70% ongoing pain relief. He reports he has been having some dizziness and wondering if due to gabapentin is causing this. H e reports that he tries to stay active and works out 4-5 days/week and also walks regularly. In the past, patient has tried and failed at least 3 months or more of conservative measures including activity modification, rest, OTC pain medications, home exercise, physical therapy, exercise. We discussed plan of care: -he continues HEP a the [employer] (4-5 days swimming and water walking, stationary bike and low body exercise); -I have instructed him to hold the gabapentin for a couple days and if dizziness improves to discontinue; -we will refill 2 months of tylenol #3 tid prn #90; -he follows ortho for bilateral knee injections and GI for abdominal/liver follow up and CV for PVD; -we will assess need to repeat left SIJ injection; -we will see him back in 2 months or sooner if needed for follow up and medication refill 04/05/[address] L/[address]: T11-T12 disc space normal T12-L1 disc space normal. L1-L2 disc space normal. L2-L3 disc normal. Mild stenosis centrally and laterally due to short pedicles. L3-L4 demonstrates short pedicles, ligamentum flavum hypertrophy with minimal disc bulge with central and lateral recess spinal stenosis. L4-L5 interspace diffuse disc bulging, facet joint arthropathy and facet joint hypertrophy and ligamentum flavum hypertrophy with central and lateral recess narrowing. L5-S1 demonstrates minor disc bulge. No stenosis Diffuse arteriosclerosis is seen. IMPRESSION: No disc herniation. Multilevel facet joint arthropathy with disc bulging with resultant spinal stenosis with superimposed short pedicles as detailed above. 10/20/22 C/S xray: Findings: Vertebral body heights maintained. No significant disc narrowing. Advanced multilevel facet hypertrophy has progressed since prior examination. IMPRESSION: Moderate cervical spondylosis. 10/20/22 bilateral shoulder xray: Findings: Mild polyarticular osteoarthritis of the right and left shoulder. Osteopenia. No acute fracture or traumatic malalignment or soft tissue or foreign bodies. IMPRESSION: Mild bilateral polyarticular osteoarthritis 06/13/22 left and right knee xray: IMPRESSION: Unchanged mild bilateral medial compartment predominant tricompartmental knee joint osteoarthritis. Goals of Treatment: Treat underlying pathology, improve pain control, improve function and quality of life. Use of Medications: The pain management contract has been previously reviewed. Questions solicited and answered, and the patient endorses a clear understanding. The patient understands random toxicology screening and prescription drug monitoring will be used. Instructed to take the smallest effective dose of opioid medication. Risks/side-effects of opioid medications, if utilizing, have been reviewed including: drowsiness, tolerance, addiction, abuse, constipation, nausea, vomiting, itching, dizziness, allergic reaction, respiratory depression, lack of benefit, endocrine abnormalities, low testosterone, sexual dysfunction, or . If utilizing, risks/side-effects of NSAID???s and potential for gastrointestinal bleeding, gastritis/esophagitis, and increased cardiac risk reviewed. Risks/side-effects of Gabapentin, Lyrica, and other potential sedative medications, if utilizing, have been reviewed including drowsiness, sedation, dizziness, fluid retention, weight gain, respiratory depression, and . If utilizing medications, the patient has been instructed to take every medication appropriately, storing and disposing properly, never sharing medication. The patient has been instructed on opioid medications, including but not limited to: do not combine with other medications such as benzodiazepines, alcohol, muscle relaxers, or other depressant medications. Patient instructed to avoid driving and operating heavy machinery. UDS screens will be performed to assess for medication, metabolites, other medications, and illicit substances. Results may be discussed at the next visit. Seasonal Customer Service Associate: Seasonal Customer Service Associate done with [employer]: variances and may occur. Dictations not proofread. Problem list pertinent to today???s visit reviewed, but entire patient problem list not reviewed today. This note is prepared by BRYCE Johnson. I electronically signed this note at 1:26 PM on 01/07/25. I, Oanh Manuel, have personally performed the services described in the documentation, and it accurately and completely records my words and actions though there are potential variances in recording and manager occupational. Dictated not proofread. documented in this encounter Plan of Treatment Upcoming Encounters Date Type Department Care Team (Latest Contact Info) Description 02/21/2025 9:45 AM CDT Hospital Encounter [facility] [address] [address] [address] [place] [address] Neftaly Portillo MD [address] [facility] [address] [place] [address] Chest pain, unspecified type; Coronary artery disease of nulato artery of nulato heart with stable angina pectoris; Dizziness 02/21/2025 9:45 AM CDT - 02/21/2025 10:50 AM CDT [facility] [address] [facility] [address] [place] [address] Neftaly Portillo MD [address] [facility] [address] [place] [address] LEFT HEART CATHETERIZATION WITH CORONARY ANGIOGRAPHY AND WITH OR WITHOUT LEFT VENTRICULOGRAM [id number] documented as of this encounter Visit Diagnoses Diagnosis Chest pain, unspecified type Coronary artery disease of nulato artery of nulato heart with stable angina pectoris Dizziness Dizziness and giddiness Spinal stenosis of lumbar region without neurogenic claudication- Primary Lumbar radiculopathy Thoracic or lumbosacral neuritis or radiculitis, unspecified Primary hypertension Unspecified essential hypertension Chest pain, unspecified type Coronary artery disease of nulato artery of nulato heart with stable angina pectoris Dizziness Dizziness and giddiness documented in this encounter Care Teams Lens Grinding Machine Operator Relationship Specialty Start Date End Date Cheo Potts MD [address] [place], [place] [id number] PCP - General 01/03/17 Neftaly Portillo MD [address] [facility] [address] [place] [address] Consulting Physician Cardiology 11/15/18 Qi Norris MD [address] [address] Referring Physician Gastroenterology 05/10/23 Katharina Mac, DEBORA [address] [address] Nurse Practitioner Cardiology 11/21/23 Tree Ruiz MD PhD [address] [address] Consulting Physician Cardiology 11/21/23 [place] [address] [address] Nurse Practitioner Winder Helper 09/18/24 [place] [address] [address] [facility] [address] [place] [address] Consulting Physician Pain Management 11/13/24 documented as of this encounter
--- OUTSIDE RECORDS SUMMARY | 2025-01-07 16:20 | XMS_ITS | Encounter Summary ---
Author Organization [facility] Address [address] [place] [address] Phone Care Team Providers Care Sustainability Coach Name Role Phone Cheo Potts MD Primary Care Provider Marques Barksdale DO Unavailable [phone] Barbara Warner APRN, CLEAT BLANKER Unavailable Qi Norris MD Unavailable [phone] Reason for Visit * Reason Comments Medication Refill Encounter Details Date Type Department Care Team (Late st Contact Info) Description 08/23/2024 Refill [facility] - Gastroenterology [facility] [address] [place] [id number] Barbara Warner APRN, CLEAT BLANKER [address] [place] [address] Medication Refill Social History Tobacco Use Types [...] Oanh Recinos RN - 08/23/2024 1:57 PM LOCAL SALES ASSOCIATE Medication refilled and signed per [facility] chronic medication standing order for pediatric and adult patients. L SALES ASSOCIATE documented in this encounter Plan of Treatment Not on file documented as of this encounter Visit Diagnoses Diagnosis Gastroesophageal reflux disease, unspecified whether esophagitis present documented in this encounter Care Teams Sustainability Coach Relationship Specialty Start Date End Date Cheo Potts MD [address] [place] [address] [address] [place] [address] PCP - General Family Medicine 11/09/15 Marques Barksdale DO [address] [place] [address] [place] [address] Gastroenterology 11/12/15 Barbara Warner APRN, CLEAT BLANKER [address] [place] [address] Nurse Practitioner Advanced Practice Nurse 10/24/22 Qi Norris MD [address] [place] [address] Consulting Physician Gastroenterology 05/12/22 documented as of this encounter
--- OUTSIDE RECORDS SUMMARY | 2025-01-07 16:20 | XMS_ITS | Encounter Summary ---
Author Organization [facility] Address [address] [place] [address] Phone Care Team Providers Care Cork Compounder Name Role Phone Cheo Potts MD Primary Care Provider Neftaly Portillo MD Unavailable Qi Norris MD Unavailable [phone] Katharina Mac NP Unavailable [phone] Tree Ruiz MD PhD Unavailable [phone] Oanh Trevizo QUALITY REVIEW SPECIALIST Unavailable Torin Almodovar MD Unavailable Encounter Details Date Type Department Care Team (Late st Contact Info) Description 12/03/2024 Results Follow-Up [facility] [address] [facility] [place] [address] [place] [address] Zainab Francis, QUALITY REVIEW SPECIALIST [address] [facility] [address] [place] [address] Social History Tobacco Use Types Packs/Day Years Used Date Smoking Tobacco: Former Cigarettes Q uit: 1972 Passive Smoke Exposure: Past Smokeless Tobacco: Never Alcohol Use Standard Drinks/Week Comments Yes 7 (1 standard drink = 0.6 oz pur e alcohol) [facility] Utilities Answer Date Recorded In the past 12 months has Contactual electric, gas, oil, or water company threatened [...] often do you attend chur ch or uatsdin services? 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 Gender Identity Male 11/05/2020 12:05 PM LOOM CONTROL CHAIN BUILDER Sexual Orientation Not on file documented as of this encounter Plan of Treatment Upcoming Encounters Date Type Department Care Team (Latest Contact Info) Description 02/21/2025 9:45 AM CDT Hospital Encounter [address] [place] [address] Neftaly Portillo MD [address] [id number] Chest pain, unspecified type; Coronary artery disease of [place] artery of [place] heart with stable angina pectoris; Dizziness 02/21/2025 9:45 AM CDT - 02/21/2025 10:50 AM CDT Surgery [address] [place] [address] Neftaly Portillo MD [address] [id number] LEFT HEART CATHETERIZATION WITH CORONARY ANGIOGRAPHY AND WITH OR WITHOUT LEFT VENTRICULOGRAM [id number] documented as of this encounter Visit Diagnoses Not on filedocumented in this encounter Care Teams Cork Compounder Relationship Specialty Start Date End Date Cheo Potts MD [address] [facility] [address] [place] [address] PCP - General 01/03/17 Neftaly Portillo MD [address] [facility] [address] [place] [address] Consulting Physician Cardiology 11/15/18 Qi Norris MD 2 [facility] [address] [place], [place] [id number] Referring Physician Gastroenterology 05/10/23 Katharina Mac NP 2 [facility] [address] [address] Nurse Practitioner Cardiology 11/21/23 Tree Ruiz MD PhD 2 [facility] [address] [place] [address] Consulting Physician Cardiology 11/21/23 [place] [address] [email or web address] [address] [place] [address] Nurse Practitioner [employer] 09/18/24 [place] [address] [facility] [[email or web address] [address] [place] [address] Consulting Physician Pain Management 11/13/24 documented as of this encounter
--- OUTSIDE RECORDS SUMMARY | 2025-01-07 16:20 | XMS_ITS | Encounter Summary ---
Author Organization [facility] Address [address] [place] [address] Phone Care Team Providers Care Courtroom Clerk Name Role Phone Cheo Potts MD Primary Care Provider Neftaly Portillo MD Unavailable [phone] Qi Norris MD Unavailable [phone] Katharina Mac STEEL MOLDER Unavailable [phone] Tree Ruiz MD PhD Unavailable [phone] Oanh Trevizo STEEL MOLDER Unavailable [phone] Torin Almodovar MD Unavailable Encounter Details Date Type Department Care Team (Late st Contact Info) Description 12/06/2024 Results Follow-Up [facility] Cardiology [address] [facility] [address] [place] [address] Mae Villanueva RMA Social History Tobacco Use Types Packs/Day Years Used Date Smoking Tobacco: Former Cigarettes Q uit: 1972 Passive Smoke Exposure: Past Smokeless Tobacco: Never Alcohol Use Standard Drinks/Week Comments Yes 7 (1 standard drink = 0.6 oz pur e alcohol) [facility] Utilities Answer Date Recorded In the [...] often do you attend chur ch or taoism services? 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 Gender Identity Male 11/05/2020 12:05 PM AVIATION TACTICAL READINESS OFFICER Sexual Orientation Not on file documented as of this encounter Plan of Treatment Upcoming Encounters Date Type Department Care Team (Latest Contact Info) Description 02/21/2025 9:45 AM CDT Hospital Encounter [address] [place] [phone] Neftaly Portillo MD [address] [address] Chest pain, unspecified type; Coronary artery disease of [place] artery of [place] heart with stable angina pectoris; Dizziness 02/21/2025 9:45 AM CDT - 02/21/2025 10:50 AM CDT Surgery [address] [facility] [place] [phone] Neftaly Portillo MD [address] [address] LEFT HEART CATHETERIZATION WITH CORONARY ANGIOGRAPHY AND WITH OR WITHOUT LEFT VENTRICULOGRAM [id number] documented as of this encounter Visit Diagnoses Not on filedocumented in this encounter Care Teams Courtroom Clerk Relationship Specialty Start Date End Date Cheo Potts MD [address] [place] [address] PCP - General 01/03/17 Neftaly Portillo MD [address] [facility] [address] [place] [address] Consulting Physician Cardiology 11/15/18 Qi Norris MD 2 [facility] [place] [address] [address] Referring Physician Gastroenterology 05/10/23 Katharina Mac NP [address] [address] Nurse Practitioner Cardiology 11/21/23 Tree Ruiz MD PhD 2 [facility] [address] [address] Consulting Physician Cardiology 11/21/23 [place] [address] [address] Nurse Practitioner Printed Circuit Board Reworker 09/18/24 [place] [address] [address] [facility] [address] [place] [address] Consulting Physician Pain Management 11/13/24 documented as of this encounter
--- OUTSIDE RECORDS SUMMARY | 2025-01-07 16:20 | XMS_ITS | Referral Summary ---
Author Organization [facility] Address [address] [place] [address] Care Team Providers Care Bioinformatics Research Technician Name Role Phone Cheo Potts MD Primary Care Provider Neftaly Portillo MD Unavailable [phone] Qi Norris MD Unavailable [phone] Katharina Mac HORTICULTURAL SPECIALTY GROWER INSIDE Unavailable Tree Ruiz MD PhD Unavailable [phone] Oanh Trevizo HORTICULTURAL SPECIALTY GROWER INSIDE Unavailable [phone] Torin Almodovar MD Unavailable Encounters Date Type Department Care Team Description 01/07/2025 12:45 PM CDT Hospital Encounter [facility] [address] [place] [address] Oanh Trevizo NP Spinal stenosis of lumbar region without neurogenic claudication (Primary Dx); Lumbar radiculopathy; Primary hypertension 01/06/2025 Telephone [facility] Cardiology [facility] Advanced Medicine 8th [place] [address] [place] [address] Neftaly Portillo MD Dizziness; Chest Pain; Procedure (LHC) 01/01/2025 Telephone [facility] Cardiology [facility] Advanced Medicine 8th [place] [address] [place] [address] Neftaly Portillo MD Medical Records Request 12/31/2024 Telephone [facility] [address] [place] [address] Earl Michelle Med Management (Tramadol after seizure) 12/18/2024 Orders Only [facility] Cardiothoracic Surgery [address] [facility] 8th Floor [address] Room [address] [phone] Dorothea Dick MD Aneurysm of ascending aorta without rupture (Primary Dx) 12/18/2024 9:45 AM CDT Office Visit [facility] Cardiothoracic Surgery [address] [place] [address] 8th Floor [address] Room [phone] [place] [phone] Dorothea Dick MD Aneurysm of ascending aorta without rupture (Primary Dx) 12/06/2024 Results Follow-Up [facility] Cardiology [address] [place] [address] 3 [address] [place] [address] Mae Villanueva RMA 12/03/2024 Results Follow-Up [facility] Cardiology [address] [place] [address] [place] [phone] Zainab Francis NP 11/25/2024 Results Follow-Up [facility] Cardiology [address] [place] [phone] Zainab Francis, DEBORA 11/25/2024 11:30 AM CDT Ancillary Procedure [facility] [address] [place] [address] 3 [address] [place] [address] Left ventricular dysfunction 11/25/2024 1:00 PM CDT Office Visit [facility] Orthopaedic Surgery [address] [facility] Building [address] [place] [address] Bell Smith PA Primary osteoarthritis of both knees (Primary Dx) 11/19/2024 1:00 PM CDT Office Visit [facility] Cardiology [address] [place] [address] [place] [phone] Zainab Francis, DEBORA Palpitations (Primary Dx); Left ventricular dysfunction; Aneurysm of ascending aorta without rupture; Paroxysmal atrial fibrillation (HCC); Coronary artery disease involving algaaciq coronary artery of algaaciq heart without angina pectoris; Cardiomyopathy, unspecified type (HCC); Primary hypertension; Mixed hyperlipidemia; History of alcohol abuse; Obstructive sleep apnea syndrome 11/15/2024 Orders Only [facility] Cardiology [address] [facility] Medical [facility] Building [address] [place] [address] Tree Ruiz MD PhD 11/13/2024 12:38 PM CDT - 11/13/2024 11:59 PM CDT Hospital Encounter [facility] [address] [place] [address] Oanh Trevizo NP Spinal stenosis of lumbar region without neurogenic claudication (Primary Dx); Lumbar radiculopathy; Chronic midline low back pain without sciatica; Sacroiliitis; Primary hypertension Discharge Disposition: Discharge to home or self care 11/05/2024 10:30 AM LIME BURNER Telemedicine [facility] Neuro Sleep [address] [facility] 6th Floor [address] [place] [phone] Mauro Zamora MD Obstructive sleep apnea syndrome (Primary Dx); Paroxysmal atrial fibrillation (HCC); Left ventricular dysfunction 11/04/2024 3:20 PM LIME BURNER - 11/04/2024 11:59 PM LIME BURNER Hospital Encounter [facility] [address] [place] [address] Dorothea Dick MD Sinus of Valsalva aneurysm Discharge Disposition: Discharge to home or self care 10/30/2024 1:30 PM LIME BURNER Office Visit [facility] Cardiology [address] [place] [address] Advanced Medicine 8th [place] [address] [place] [phone] Johnna Navarrete NP Stenosis of carotid artery, unspecified laterality (Primary Dx) 10/30/2024 1:00 PM LIME BURNER Ancillary Procedure [facility] Cardiology [address] [place] [address] 8th [place] [address] [place] [phone] Cardiomyopathy, unspecified type (HCC) (Primary Dx); Fitting [...] D Deficiency 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 mouth pump and blower operator 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 Active coenzyme Q10 200 mg capsuleIndicatio ns:supplement Take 1 capsule (200 mg total) by mouth nightly Active magnesium oxide 200 mg tablet,chewableI ndications:suppl ement Take 200 mg by mouth pump and blower operator 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 Active polyethylene glycol (MIRALAX) 17 gram packetIndication s:constipation Take 1 packet (17 g total) by mouth nightly Active multivitamin no.44-vit D3-K 1,000-800 unit-mcg capsuleIndicatio ns:Mineral Deficiency Prevention,Vitam in Deficiency Prevention 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 mouth pump and blower operator 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 Active azelastine (ASTELIN) 137 mcg [...] 1 tablet (5 mg total) by mouth pump and blower operator 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 2 Active sucralfate (CARAFATE) 1 [...] as needed for pain 90 tablet 1 05/30/202 5 Active busPIRone (BUSPAR) 15 mg tabletIndication [...] for pain 90 tablet 5 025 Discontin ued([facility]) Hospital, Clinic, or Other Facility Administered [...] GI bleeding 02/08/2023 Lumbar facet arthropathy 09/20/2022 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 current use of anticoagulant 3 Lumbar radiculopathy 09/13/2022 Chronic midline low back pain without sciatica 0 09/13/2022 DDD (degenerative disc disease), lumbar 09/13/19 23 Sacroiliitis 09/13/2022 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 Chronic idiopathic constipation 07/16/2021 Hepatomegaly 07/16/2021 History of alcohol abuse 07/16/2021 PAD (peripheral artery disease) 02/26/2019 Coronary artery disease invo lving algaaciq coronary artery of algaaciq heart without angina pectoris 01/30/2019 Overview (01/30/2019): Added automatically from request for surgery [id number] Abnormal EKG 01/30/2019 Overview (01/30/2019): Added automatically from request for surgery [id number] Sick sinus syndrome 04/20/2018 Overview (04/20/2018): Added automatically from request for surgery [id number] Assessment & Plan (04/27/2018 8:59 AM CDT): [...] PM CDT): - mild 3v dz on [facility] 03/2015 - ct ASA, statin Dizziness [...] e alcohol) [facility] Utilities Answer Date Recorded In the past 12 months has [employer], oil, or water [employer] threatened to shut off services in your [...] often do you attend chur ch or taoist services? 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; Dizziness 02/21/2025 9:45 AM CDT - 02/21/2025 10:50 AM CDT Surgery [facility] [address] [facility] [address] [place] [phone] Neftaly Portillo MD [address] [facility] [address] [place] [address] LEFT HEART CATHETERIZATION WITH CORONARY ANGIOGRAPHY AND WITH OR WITHOUT LEFT VENTRICULOGRAM [id number] Medical Devices Implanted Type Area Zinc Miner Blasting Device Identifier Shelf Expiration Date Model / Serial / Lot Medtronic Cardiac Rhythm Mgmt 5076-52 Capsurefix Novus 6.2fr 2mm 52cm Bipolar Screw In Implantable Latex Free - [id number] - [id number] Implanted:Qty: 1 on 04/24/2018 by Osmany Pina MD at [facility] Pacemaker Left: Heart Medtronic Cardiac Rhythm Mgmt [id number] 03/08/2020 5076-52 / [id number] / Medtronic Cardiac Rhythm Mgmt 5076-45 Capsurefix Novus Od6.2 Fr; Odsec2 Mm L45 Cm Bipolar; Screw In; Im - [id number] - [id number] Implanted:Qty: 1 on 04/24/2018 by Osmany Pina MD at [facility] Pacemaker Left: Heart Medtronic Cardiac Rhythm Mgmt [id number] 02/13/2020 5076-45 / [id number] / Medtronic Inc [id number] Attain Performa Starfix 5.3fr 5.1fr 88cm Quadripolar Is4-Llll Latex Free - [id number] - [id number] Implanted:Qty: 1 on 04/24/2018 by Osmany Pina MD at [facility] Pacemaker Left: Heart Medtronic Inc 02/15/2020 [id number] / [id number] / Pacemaker Cardiac 11mm 19.9cu Cm 46.5x59mm Rain Surescan - [id number] - [id number] Implanted:Qty: 1 on 04/24/2018 by Osmany Pina MD at [facility] Pacemaker Left: Chest Medtronic Inc 06/17/2019 [id number] / [id number] / [employer] [facility] Device Clsr Perclose Prostyle Sut-Mediatd Closure-Repair Sys 90297-55 - [id number] - [id number] Implanted:Qty: 1 on 09/20/2023 by Antoine Nelson MD at [facility] Vascular Closure Device N/A: Femoral Vein [employer] 05/04/2025 47871-01 / [id number] / [id number] Procedures Procedure Name Priority Date/Time Associated Diagnosis Comments BASIC METABOLIC PANEL Routine 12/05/2024 12:13 PM CDT Coronary artery disease involving algaaciq coronary artery of algaaciq heart without angina pectoris Palpitations NM ARTHROCENTESIS ASPIR&/INJ MAJOR JT/BURSA W/O US Routine 11/25/2024 1:00 PM CDT Primary osteoarthritis of both knees TRANSTHORACIC ECHO (TTE) COMPLETE W DOPPLER/CF WO CONTRAST Routine 11/25/2024 12:41 PM CDT Left ventricular dysfunction CBC WITH AUTO DIFFERENTIAL Routine 11/22/2024 12:30 PM CDT Coronary artery disease involving algaaciq coronary artery of algaaciq heart without angina pectoris BASIC METABOLIC PANEL Routine 11/22/2024 12:30 PM CDT Coronary artery disease involving algaaciq coronary artery of algaaciq heart without angina pectoris ECG 12-LEAD Routine 11/19/2024 1:48 PM CDT Palpitations DEVICE CHECK - REMOTE Routine 11/15/2024 9:36 PM CDT CTA CHEST W CONTRAST Schedule Routine, Read Routine (OP Routine) 11/04/2024 4:01 PM LIME BURNER Sinus of Valsalva aneurysm POCT CREATININE - DEVICE Routine 11/04/2024 3:40 PM LIME BURNER DEVICE CHECK - IN OFFICE Routine 10/30/2024 12:42 PM LIME BURNER Cardiomyopathy, unspecified type (HCC) Fitting and adjustment [...] CDT) Glucose 63(L) 65 - 99 mg/dL [facility] Smith Comment: Fasting reference interval BUN 15 7 - 25 mg/dL [facility] Smith Creatinine 0.73 0.70 - 1.22 mg/dL [facility] Smith eGFR 91 > OR = 60 mL/min/1.7 3m2 [facility] Luis BUN/creat ratio SEE NOTE: 6 - 22 (calc) [facility] Comment: Not Reported: BUN and Creatinine are within reference range. Sodium 131(L) 135 - 146 mmol/L [facility] Potassium, pl 4.3 3.5 - 5.3 mmol/L [facility] Smith Chloride 96(L) 98 - 110 mmol/L [facility] Luis CO2 29 20 - 32 mmol/L [facility] Calcium 9.1 8.6 - 10.3 mg/dL [facility] Smith Blood 12/05/2024 12:1 3 PM CDT 12/05/2024 12:13 PM CDT us Zainab Francis HORTICULTURAL SPECIALTY GROWER INSIDE LAB BLOOD ORDERABLES Final Re [facility]ult [facility] [address] [place] [address] * NM ARTHROCENTESIS ASPIR&/INJ MAJOR JT/BURSA W/O US (11/25/2024 [...] PM CDT Narrative 12/02/2024 11:23 PM CDT [facility] Cardiac Diagnostic Lab [address] , [address] [place] [address] Transthoracic Echocardiographic Report Patient Name: DONALD FATIMA MI : 1940 (84y 7m) Gender: M Study Date: 11/25/2024 12:03:57 PM Ht(Inch): 69 Wt(Lb): 182.1 BSA: 2.01 Fiscal Agent: Francisca Sánchez RDCS Location: [facility] Heart Rate: 74 BMI: 26.89 BP: [...] LA Length 4C 4.17 cm AI Decel Bosque 1.91 m/s2 LA Length 2C 4.69 cm [...] Procedure Note Neftaly Portillo MD - 12/02/2024 [facility] Cardiac Diagnostic Lab [address] , [address] [place] [address] Transthoracic Echocardiographic Report Patient Name: DONALD FATIMA MI : 1940 (84y 7m) Gender: M Study Date: 11/25/2024 12:03:57 PM Ht(Inch): 69 Wt(Lb): 182.1 BSA: 2.01 Fiscal Agent: Francisca Sánchez RDCS Location: [facility] Heart Rate: 74 BMI: 26.89BP: 100 [...] [ -25.0 - -18.0 ] AI Decel [id number] sec LA Length 4C 4.17 cm AI Decel Slope1.91 m/s2 LA Length 2C 4.69 cm AI HTQ780.96 msec LA Volume BP 45.23 ml MV [...] [ 3.10 - 3.70 ] MV Decel Ffir971.67 msec [ 104.00 - 258.00 ] Ao [...] MD 12/02/2024 11:23:49 PM CDT Zainab Francis NP CV ECHO PROCEDURES Final Resu lt * CBC with auto differential (11/22/2024 12:30 PM CDT) WBC 5.1 3.8 - 10.8 Thousand/u L [facility] RBC, POC 4.49 4.20 - 5.80 Million/uL [facility] Hgb 14.2 13.2 - 17.1 g/dL [facility] Hct 42.4 38.5 - 50.0 % [facility] MCV 94.4 80.0 - 100.0 fL [facility] MCH 31.6 27.0 - 33.0 pg [facility] MCHC 33.5 32.0 - 36.0 g/dL [facility] Comment: For adults, a slight decrease in the calculated MCHC value (in the range of 30 to 32 g/dL) is most likely not clinically significant; however, it should be interpreted with caution in correlation with other red cell parameters and the patient's clinical condition. Rdw 12.1 11.0 - 15.0 % [facility] Platelets 279 140 - 400 Thousand/u L [facility] MPV 8.9 7.5 - 12.5 fL [facility] Neutrophils, abs 2,392 1,500 - 7,800 cells/uL [facility] Lymphocytes, abs 2,035 850 - 3,900 cells/uL [facility] Monocyte abs 515 200 - 950 cells/uL [facility] Eosinophils, abs 97 15 - 500 cells/uL [facility] Basophils, abs 61 0 - 200 cells/uL [facility] Neutrophils 46.9 % [facility] Lymphocyte pct 39.9 % [facility] Monocytes 10.1 % [facility] Eosinophils 1.9 % [facility] Basophils 1.2 % [facility] Blood 11/22/2024 12:3 0 PM CDT 11/22/2024 12:30 PM CDT Result [facility] Zainab Francis HORTICULTURAL SPECIALTY GROWER INSIDE LAB BLOOD ORDERABLES Final Re sult Performing Organization Address [facility] Co de Phone Number NAT [facility] [place] [facility] [address] [place] [address] * (ABNORMAL) Basic metabolic panel (11/22/2024 12:30 PM CDT) [facility] Glucose 93 65 - 99 mg/dL [facility] Luis Comment: Fasting reference interval BUN 11 7 - 25 mg/dL [facility] Smith Creatinine 0.71 0.70 - 1.22 mg/dL [facility] eGFR 92 > OR = 60 mL/min/1.7 3m2 [facility] BUN/creat ratio SEE NOTE: 6 - 22 (calc) [facility] Comment: Not Reported: BUN and Creatinine are within reference range. Sodium 130(L) 135 - 146 mmol/L [facility] Potassium, pl 4.4 3.5 - 5.3 mmol/L [facility] Chloride 95(L) 98 - 110 mmol/L [facility] CO2 29 20 - 32 mmol/L [facility] Calcium 8.9 8.6 - 10.3 mg/dL [facility] Blood 11/22/2024 12:3 0 PM CDT 11/22/2024 12:30 PM CDT Zainab Francis HORTICULTURAL SPECIALTY GROWER INSIDE LAB BLOOD ORDERABLES Final Re sult Performing Organization Address [facility]/ZIP Co de Phone Number [email or web address] [address] [place] [address] * ECG 12 lead (11/19/2024 1:48 PM CDT) Zainab Francis HORTICULTURAL SPECIALTY GROWER INSIDE ECG ORDERABLES Final Result * DEVICE CHECK [...] is programmed Adaptive, currently 5.5/0.4. Presenting Rhythm (NM) Atrial Sensing-BiVentricular Pacing (-BiVP) --- /BVP 63 [...] output is programmed Adaptive, currently5.5/0.4. Presenting Rhythm (NM) Atrial Sensing-BiVentricular Pacing (-BiVP) --- /BVP 63 bpm. Arrhythmic events (AE) No new arrhythmic events in monitoring period --- Since 10/30/24: No AHRor VHR episodes. Transmission Information (TI) Device Summary Report Follow Up (FU) Patient's primary treating physician will be apprised of findings Tree Ruiz MD PhD CV CARDIAC SERVICES PROCEDURES Final Result * CTA Chest W Contrast (11/04/2024 4:01 PM LIME BURNER) Anatomical Region Laterality Modality Chest N/A Computed Tomogra phy 11/04/2024 7:27 PM LIME BURNER Impressions 11/04/2024 7:27 PM LIME BURNER Stable dilatation of the aortic root measuring up to 49 mm, previously 49 mm. Electronically signed by: Iam Piper MD, PHD Narrative 11/04/2024 7:27 PM LIME BURNER EXAMINATION: CTA CHEST W CONTRAST HISTORY: Aortic [...] Result * POCT creatinine (11/04/2024 3:40 PM LIME BURNER) Creatinine POC 0.9 0.8 - 1.3 mg/dL Blood 11/04/2024 3:40 PM LIME BURNER 11/04/2024 3:40 PM LIME BURNER Dorothea Dick MD LAB POCT ORDERABLES - DEVICE Fin al Result Performing Organization Address City/State/[facility] Co de Phone Number [facility] Department [place] [address] * DEVICE CHECK - IN OFFICE (10/30/2024 12:42 PM LIME BURNER) Anatomical Region Laterality Modality Other 10/30/2024 2:00 AM LIME BURNER Narrative 11/08/2024 9:01 AM LIME BURNER Interpretation Summary: Battery and Leads (BL) Normal parameters identified on lead(s) Less than 1 year of battery longevity noted --- 8 months to DISTRICT DIRECTOR Presenting Rhythm (NM) Atrial Pacing-BiVentricular Pacing (AP-BiVP) Arrhythmic events (AE) Nonsustained VT event(s) identified Anticoagulation (AC) Patient prescribed Apixaban (Eliquis) Patient on anticoagulant therapy Procedure Note Tree Ruiz MD PhD - 11/08/2024 Interpretation Summary: Battery and Leads (BL) Normal parameters identified on lead(s) Less than 1 year of battery longevity noted --- 8 months to DISTRICT DIRECTOR Presenting Rhythm (NM) Atrial Pacing-BiVentricular Pacing (AP-BiVP) Arrhythmic events (AE) [...] Recently Relevant to Health Maintenance [place] [address] [facility] MEDICARE SUPPLEMENT MEDICARE MEDICARE [facility] MEDICARE [facility] MEDICARE SUPPLEMENT MEDICARE [facility] MEDICARE SUPPLEMENT Advance Directives For more information, please contact: [phone] * Full Code (Latest Code Status on File) Date Activated Date Inactivated Comments 09/20/2023 6:27 PM 09/21/2023 7:45 PM * Full Code Date Activated Date Inactivated Comments 04/24/2018 5:50 PM 04/27/2018 2:46 PM * Full Code Date Activated Date Inactivated Comments 03/24/2018 11:24 PM 03/25/2018 4:51 PM Care Teams Bioinformatics Research Technician Relationship Specialty Start Date End Date Cheo Potts MD [address] [place] [address] PCP - General 01/03/17 Neftaly Portillo MD [address] [facility] [address] [place] [address] Consulting Physician Cardiology 11/15/18 Qi Norris MD [address] [place] [address] [address] Referring Physician Gastroenterology 05/10/23 Katharina Mac, DEBORA [facility] [address] [address] Nurse Practitioner Cardiology 11/21/23 Tree Ruiz MD PhD [address] [place] [place] [address] Consulting Physician Cardiology 11/21/23 [place] [address] [address] Nurse Practitioner Media Intern 09/18/24 [place] [address] [address] Consulting Physician Pain Management 11/13/24
--- OUTSIDE RECORDS SUMMARY | 2025-01-07 16:21 | XMS_ITS | Encounter Summary ---
Author Organization [facility] Address [address] [place] [address] Phone Care Team Providers Care Supervisor Car Installations Name Role Phone Cheo Potts MD Primary Care Provider Neftaly Portillo MD Unavailable [phone] Tree Ruiz MD PhD Unavailable [phone] Katharina Mac LABORATORY SAMPLER Unavailable [phone] Qi Norris MD Unavailable [phone] Yuly Nieves RN Unavailable Katharina Mac LABORATORY SAMPLER Unavailable Tree Ruiz MD PhD Unavailable [phone] Oanh Trevizo LABORATORY SAMPLER Unavailable Oanh Trevizo LABORATORY SAMPLER Unavailable Torin Almodovar MD Unavailable [phone] Encounter Details Date Type Department Care Team [...] on file 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 Gender Identity Male 11/05/2020 12:05 PM 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 Sexual Orientation Not on file documented as of this encounter Plan of Treatment Upcoming Encounters Date Type Department Care Team (Latest Contact Info) Description 02/21/2025 9:45 AM CDT Hospital Encounter [address] [place] [phone] Neftaly Portillo MD [address] [id number] Chest pain, unspecified type; Coronary artery disease of [place] artery of [place] heart with stable angina pectoris; Dizziness 02/21/2025 9:45 AM CDT - 02/21/2025 10:50 AM CDT Surgery [address] [place] [phone] Neftaly Portillo MD [address] [id number] LEFT HEART CATHETERIZATION WITH CORONARY ANGIOGRAPHY AND WITH OR WITHOUT LEFT VENTRICULOGRAM [id number] documented as of this encounter Procedures Procedure Name Priority Date/Time Associated Diagnosis Comments SLEEP LAB/STUDY - RESULT 12/20/2018 documented in this encounter Results * SLEEP LAB/STUDY - RESULT (12/20/2018) us Provider Scanning Final Result documented in this encounter Visit Diagnoses Not on filedocumented in this encounter Care Teams Supervisor Car Installations Relationship Specialty Start Date End Date Cheo Potts MD [address] [place] [address] PCP - General 01/03/17 Neftaly Portillo MD [address] [id number] Consulting Physician Cardiology 11/15/18 Tree Ruiz MD PhD 5201 [facility] [address] [place] [id number] Referring Physician Cardiology 12/10/20 11/20/23 Katharina Mac, DEBORA 5[address] [facility] [address] [place] [address] Referring Physician Cardiology 12/10/20 11/20/23 Qi Norris MD 2 [facility] [address] [place] [address] Referring Physician Gastroenterology 05/10/23 Yuly Nieves, RN 4590 [facility] [address] [place] [address] SHOP Outpatient Depot Manager 09/22/23 10/18/23 Katharina Mac NP 4590 [facility] [address] [place] [address] Nurse Practitioner Cardiology 11/21/23 Tree Ruiz MD PhD 45[address] [facility] [address] [place] [address] Consulting Physician Cardiology 11/21/23 [place] [address] [address] [facility] [address] [place] [address] Nurse Practitioner Lather Apprentice 07/18/24 11/12/24 [place] [address] [address] [facility] [address] [place] [address] Nurse Practitioner Lather Apprentice 09/18/24 [place] [address] [address] [facility] [address] [place] [address] Consulting Physician Pain Management 11/13/24 documented as of this encounter
--- OUTSIDE RECORDS SUMMARY | 2025-01-07 16:21 | XMS_ITS | Encounter Summary ---
Author Organization [facility] Address [address] [place] [address] Phone Care Team Providers Care Safe Deposit Attendant Name Role Phone Cheo Potts MD Primary Care Provider Neftaly Portillo MD Unavailable [phone] Tree Ruiz MD PhD Unavailable [phone] Katharina Mac SAMPLER RADIOACTIVE WASTE Unavailable Qi Norris MD Unavailable [phone] Yuly Nieves RN Unavailable [phone] Katharina Mac SAMPLER RADIOACTIVE WASTE Unavailable Tree Ruiz MD PhD Unavailable [phone] Oanh Trevizo SAMPLER RADIOACTIVE WASTE Unavailable [phone] Oanh Trevizo SAMPLER RADIOACTIVE WASTE Unavailable Torin Almodovar MD Unavailable Reason for Visit * Reason Onset Date Comments CALL BACK 04/20/2018 Encounter Details Date Type Department Care Team (Late st Contact Info) Description 04/20/2018 Telephone [facility] Cardiology [address] 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 Gender Identity Male 11/05/2020 12:05 PM LAP MACHINE OPERATOR Sexual Orientation Not on file documented as of this encounter Plan of Treatment Upcoming Encounters Date Type Department Care Team (Latest Contact Info) Description 02/21/2025 9:45 AM CDT Hospital Encounter [address] [place] [address] Neftaly Portillo MD [address] [id number] Chest pain, unspecified type; 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; Dizziness 02/21/2025 9:45 AM CDT - 02/21/2025 10:50 AM CDT Surgery [address] [place] [address] Neftaly Portillo MD [address] [id number] LEFT HEART CATHETERIZATION WITH CORONARY ANGIOGRAPHY AND WITH OR WITHOUT LEFT VENTRICULOGRAM [id number] documented as of this encounter Visit Diagnoses Not on filedocumented in this encounter Care Teams Safe Deposit Attendant Relationship Specialty Start Date End Date Cheo Potts MD [address] [place] [address] PCP - General 01/03/17 Neftaly Portillo MD [address] [address] Consulting Physician Cardiology 11/15/18 Tree Ruiz MD PhD [address] [place] [address] Referring Physician Cardiology 12/10/20 11/20/23 Katharina Mac NP 5201 [facility] [address] [place] [address] Referring Physician Cardiology 12/10/20 11/20/23 Qi Norris MD 2 [facility] [address] [place] [address] Referring Physician Gastroenterology 05/10/23 Yuly Nieves, RN [address] [facility] [address] [place] [address] SHOP Outpatient Funeral Home Makeup Artist 09/22/23 10/18/23 Katharina Mac, DEBORA [address] [facility] [address]300 [place] [address] Nurse Practitioner Cardiology 11/21/23 Tree Ruiz MD PhD 4590 [facility] [address]300 [place] [address] Consulting Physician Cardiology 11/21/23 [place] [address] [facility] 100 [place] [address] Nurse Practitioner Facilities Maintenance Supervisor 07/18/24 11/12/24 [place] [address] [facility] 100 [place] [address] Nurse Practitioner Facilities Maintenance Supervisor 09/18/24 [place] [address] [facility] [address] [place] [address] Consulting Physician Pain Management 11/13/24 documented as of this encounter
--- OUTSIDE RECORDS SUMMARY | 2025-01-07 16:21 | XMS_ITS | Encounter Summary ---
Author Organization [facility] Address [address] [place] [address] Phone Care Team Providers Care Mine Technician Name Role Phone Cheo Potts MD Primary Care Provider Neftaly Portillo MD Unavailable [phone] Tree Ruiz MD PhD Unavailable [phone] Katharina Mac VERTICAL BORING MILL OPERATOR Unavailable Qi Norris MD Unavailable [phone] Yuly Nieves RN Unavailable [phone] Katharina Mac VERTICAL BORING MILL OPERATOR Unavailable [phone] Tree Ruiz MD PhD Unavailable [phone] Oanh Trevizo VERTICAL BORING MILL OPERATOR Unavailable [phone] Oanh Trevizo VERTICAL BORING MILL OPERATOR Unavailable Torin Almodovar MD Unavailable Encounter Details Date Type Department Care Team (Latest Contact Info) Description 10/05/2022 Orders Only [facility] Berenice Olivares, RN 0[address] [facility] [address] [place] [address] Social History Tobacco Use Types [...] on file Legal Sex Male 3:18 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 Gender Identity Male 11/05/2020 12:05 PM POST FORM REMOVER Sexual Orientation Not on file documented as of this encounter Plan of Treatment Upcoming Encounters Date Type Department Care Team (Latest Contact Info) Description 02/21/2025 9:45 AM CDT Hospital Encounter [address] [place] [address] Neftaly Portillo MD [address] [address] Chest pain, unspecified type; 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; Dizziness 02/21/2025 9:45 AM CDT - 02/21/2025 10:50 AM CDT Surgery [address] [place] [address] Neftaly Portillo MD [address] [id number] LEFT HEART CATHETERIZATION WITH CORONARY ANGIOGRAPHY AND WITH OR WITHOUT LEFT VENTRICULOGRAM [id number] documented as of this encounter Procedures Procedure Name Priority Date/Time Associated Diagnosis Comments SCAN - LABS 10/05/2022 documented in this encounter Results * SCAN - LABS (10/05/2022) Berenice Olivares RN Final Result documented in this encounter Visit Diagnoses Not on filedocumented in this encounter Care Teams Mine Technician Relationship Specialty Start Date End Date Cheo Potts MD [address] [place] [address] PCP - General 01/03/17 Neftaly Portillo MD [address] [place] [address] Consulting Physician Cardiology 11/15/18 Tree Ruiz MD PhD [address] [place] [address] Referring Physician Cardiology 12/10/20 11/20/23 Katharina Mac, DEBORA [address] [place] [address] Referring Physician Cardiology 12/10/20 11/20/23 Qi Norris MD [address] [address] Referring Physician Gastroenterology 05/10/23 Yuly Nieves, CLARISSA [address] [place] [address] SHOP Outpatient Carpenter Assistant 09/22/23 10/18/23 Katharina Mac, DEBORA [address] [place] [address] Nurse Practitioner Cardiology 11/21/23 Tree Ruiz MD PhD [address] [place] [address] Consulting Physician Cardiology 11/21/23 Oanh Trevizo, DEBORA [address] [facility] 100 [place] [address] Nurse Practitioner Camera Engineer 07/18/24 11/12/24 Oanh Trevioz, DEBORA [address] [facility] 100 [place] [address] Nurse Practitioner Camera Engineer 09/18/24 [place] [address] [facility] [address] [address] Consulting Physician Pain Management 11/13/24 documented as of this encounter
--- OUTSIDE RECORDS SUMMARY | 2025-01-07 16:21 | XMS_ITS | Encounter Summary ---
Author Organization [facility] Address [address] [facility] [place] [address] Phone Care Team Providers Care Database Administrator Name Role Phone Cheo Potts MD Primary Care Provider Marques Barksdale DO Unavailable [phone] Barbara Warner APRN, CLINICAL TRIALS ASSISTANT Unavailable Qi Norris MD Unavailable [phone] Reason for Visit * Reason Comments Medication Refill Encounter Details Date Type Department Care Team (Late st Contact Info) Description 11/20/2022 Refill [facility] - Gastroenterology [facility] [address] [place] [id number] Renetta Jacob Duyen, PAC [address] [place] [address] Medication Refill Social History Tobacco Use Types [...] present documented in this encounter Care Teams Database Administrator Relationship Specialty Start Date End Date Cheo Potts MD [address] [facility] [address] [place] [address] PCP - General Family Medicine 11/09/15 Marques Barksdale DO [address] [place] [address] [address] [place] [address] Gastroenterology 11/12/15 Barbara Warner APRN, CLINICAL TRIALS ASSISTANT [address] [place] [address] Nurse Practitioner Advanced Practice Nurse 10/24/22 Qi Norris MD [address] [place] [address] Consulting Physician Gastroenterology 05/12/22 documented as of this encounter
--- OUTSIDE RECORDS SUMMARY | 2025-01-07 16:21 | XMS_ITS | Encounter Summary ---
Author Organization [facility] Address [address] [place] [address] Phone Care Team Providers Care Clinical Account Specialist Name Role Phone Cheo Potts MD Primary Care Provider Neftaly Portillo MD Unavailable [phone] Tree Ruiz MD PhD Unavailable [phone] Katharina Mac CASE RESOLUTION SPECIALIST Unavailable [phone] Qi Norris MD Unavailable [phone] Yuly Nieves RN Unavailable Katharina Mac CASE RESOLUTION SPECIALIST Unavailable [phone] Tree Ruiz MD PhD Unavailable [phone] Oanh Trevizo CASE RESOLUTION SPECIALIST Unavailable [phone] Oanh Trevizo CASE RESOLUTION SPECIALIST Unavailable [phone] Torin Almodovar MD Unavailable Encounter Details Date Type Department Care Team (Latest Contact Info) Description 01/25/2023 Orders Only [facility] Berenice Olivares, RN 0754 [facility] [address] [place] [address] Social History Tobacco Use Types [...] on file 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 Male 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 Gender Identity Male 11/05/2020 12:05 PM SAND CASTER APPRENTICE Sexual Orientation Not on file documented as of this encounter Plan of Treatment Upcoming Encounters Date Type Department Care Team (Latest Contact Info) Description 02/21/2025 9:45 AM CDT Hospital Encounter [address] [place] [address] Neftaly Portillo MD [address] [address] Chest pain, unspecified type; 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; Dizziness 02/21/2025 9:45 AM CDT - 02/21/2025 10:50 AM CDT Surgery [address] [place] [address] Neftaly Portillo MD [address] [address] LEFT HEART CATHETERIZATION WITH CORONARY ANGIOGRAPHY AND WITH OR WITHOUT LEFT VENTRICULOGRAM [id number] documented as of this encounter Procedures Procedure Name Priority Date/Time Associated Diagnosis Comments SCAN - LABS 01/25/2023 documented in this encounter Results * SCAN - LABS (01/25/2023) Berenice Olivares RN Final Result documented in this encounter Visit Diagnoses Not on filedocumented in this encounter Care Teams Clinical Account Specialist Relationship Specialty Start Date End Date Cheo Potts MD [address] [place] [address] PCP - General 01/03/17 Neftaly Portillo MD [address] [place] [address] Consulting Physician Cardiology 11/15/18 Tree Ruiz MD PhD [address] [place] [address] Referring Physician Cardiology 12/10/20 11/20/23 Katharina Mac, DEBORA [address] [place] [address] Referring Physician Cardiology 12/10/20 11/20/23 Qi Norris MD [address] [address] Referring Physician Gastroenterology 05/10/23 Yuly Nieves, CLARISSA [address] [place] [address] SHOP Outpatient Rodeo Performer 09/22/23 10/18/23 Katharina Mac, DEBORA [address] [place] [address] Nurse Practitioner Cardiology 11/21/23 Tree Ruiz MD PhD [address] [place] [address] Consulting Physician Cardiology 11/21/23 Oanh Trevizo, DEBORA [address] [facility] 100 [place] [address] Nurse Practitioner Sugarcane Planter 07/18/24 11/12/24 Oanh Trevizo, DEBORA [address] [facility] 100 [place] [address] Nurse Practitioner Sugarcane Planter 09/18/24 [place] [address] [facility] [address] [address] Consulting Physician Pain Management 11/13/24 documented as of this encounter
[2025-01-07 16:45] LABS: Hematocrit 43.4 % (42.0-52.0); Hemoglobin 14.4 g/dL (14.0-18.0); Mean Corpuscular HGB Conc 33.2 g/dl (32-36); Mean Corpuscular Volume 93.3 fl (80-100); Mean Platelet Volume 8.3 fl (7.4-10.4); Platelet Count Result 274 k/mm3 (150-375); Red Blood Count 4.65 M/mm3 (4.6-6.20); Red Cell Distribution Width 13.6 % (11.5-14.5); White Blood Count 5.8 K/mm3 (4.5-10.0)
[2025-01-07 17:04] LABS: Anion Gap 6 mmol/L (4-12); Blood Urea Nitrogen 18 mg/dL (9-20); Calcium 8.8 mg/dL (8.4-10.2); Carbon Dioxide 28 mmol/L (22-30); Chloride 99 mmol/L (98-107); Estimated Glomerular Filt Rate > 60; Glucose 100 mg/dL (65-110); Potassium 3.9 mmol/L (3.4-5.0); Sodium 133 mmol/L (137-145)
[2025-01-07 17:14] LABS: NT Pro B Type Natriuretic Pept 68 pg/mL (19.9-100); Troponin I < 0.012 ng/mL (0.000-0.034)
== END 2025-01-07 16:12 | disposition home or self-care (01) ==
LOC: ANHLAB 16:17
PROVIDERS: PCP Family Medicine; Visit Provider Internal Medicine Cardiovascular Disease
DX: I11.0 Hypertensive heart disease with heart failure (principal); I50.22 Chronic systolic (congestive) heart failure; I25.118 Atherosclerotic heart disease of native coronary artery with other forms of angina pectoris
CPT/HCPCS: 36415; 80048; 83880; 84484; 85027

== ENCOUNTER 2025-02-14 16:18 | Outpatient (CLI) | payer MEDICARE, SELFPAY ==
--- NOTE | ~2025-02-14 | XR_ITS ---
XR chest 2V 02/14/2025 16:31 Indication: Shortness of breath Procedure: 2 view chest Comparison: Comparison to multiple prior studies sequentially, with oldest reviewed study dated 03/2022. Findings: Right basilar atelectasis. Stable cardiomediastinal silhouette. Pacemaker leads are unchang ed. No focal pneumonia, edema, significant effusion or pneumothorax. Impression: 1: Right basilar atelectasis. Reviewed, dictated and finalized at location B. Impression: 1: Right basilar atelectasis.
== END 2025-02-14 16:19 | disposition home or self-care (01) ==
PROVIDERS: PCP Family Medicine; Visit Provider Physician Assistant
DX: J98.11 Atelectasis (principal)
CPT/HCPCS: 71046

== ENCOUNTER 2025-02-18 20:38 | Emergency (ER) | payer MEDICARE, SELFPAY ==
--- OUTSIDE RECORDS SUMMARY | 2025-02-18 20:39 | XMS_ITS | Clinical Summary ---
Author Organization [facility] Address [address] [address] Care Team Providers Care Saas Architect Name Role Phone Cheo Potts MD Primary Care Provider [phone] Source Comments [facility],non-owned Affiliates and Associated Physician Practices is amultiple site organization consisting of ambulatory clinics and hospital sitesin [place], [place], [place] and [place]. This disclosure is being madepursuant to the Care Everywhere program and may not contain all information available regarding this patient. Last updated 18.[facility] Allergies Active Allergy Reactions Criticality Noted Date [...] (one) tablet by mouth at bedtime 4 08/19/20 25 Active azelastine (Astelin) 0.1 % nasal spray Coral 2 (two) sprays into each nostril once daily 4 Active busPIRone (Buspar) 15 MG tablet Take 0.5 (one-half) tablet by mouth 2 times daily 4 Active Coenzyme Q10 10 MG Take 200 mg by mouth once daily Active dapagliflozin propanediol (Farxiga) 10 MG tablet Take 1 (one) tablet by mouth once daily 4 09/11/19 26 Active finasteride (Proscar) 5 MG tablet Take 1 (one) tablet by mouth once daily Active Anucort-HC 25 MG suppository Insert 1 (one) suppository into the rectum 2 times daily as needed 4 Active polyethylene glycol 3350 (Miralax) 17 g packet Take 17 (seventeen) g by mouth at bedtime Active sacubitril-valsa rtan (Entresto) 24-26 MG tablet Take 1 (one) [...] and supper 120 capsule 2 5 Active Active Problems Problem Noted Date Diagnosed Date Presence of Watchman left atrial appendage closu re device 09/20/2023 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 06/13/2023 GI bleeding 02/08/2023 Lumbar facet arthropathy 09/20/2022 Chronic midline low back pain without sciatica 0 09/13/2022 DDD (degenerative disc disease), lumbar 09/13/19 23 long term care pharmacist current use of anticoagulant 3 Sacroiliitis 09/13/2022 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 Chronic idiopathic constipation 07/16/2021 Hepatomegaly 07/16/2021 History of alcohol abuse 07/16/2021 PAD (peripheral artery disease) 02/26/2019 Abnormal EKG 01/30/2019 Overview (12/17/2024): Added automatically from request for surgery [id number] Sick sinus syndrome 04/20/2018 Overview (12/17/2024): Added automatically from request for surgery [id number] Last Assessment & Plan: Cardiac resynchronization defibrillator [...] (12/17/2024): Added automatically from request for surgery [id number] Dizziness and giddiness 01/10/2017 High risk medication [...] CDT Office Visit [facility] - [address] [address] Manish Calloway MD Right upper quadrant abdominal pain (Primary Dx) 12/17/2024 Telephone [facility] - [address] [address] Anya Lovell RN Appointment 12/17/2024 Travel from Last 3 Months Social History Tobacco Use Types Packs/Day Years Used Date Smoking Tobacco: Former Cigarettes Q uit: 09/04/1971 Tobacco Cessation:Counseling Given: Not Answered Alcohol Use Standard Drinks/Week Comments No 0 (1 standard drink = 0.6 oz pur e alcohol) Sex and Gender Information Value Date Recorded Sex Assigned at Not on file Legal Sex Male 6:51 PM EXHIBITS CURATOR Gender Identity Not on file Sexual Orientation Not on file Last Filed Vital Signs Vital Sign Reading Time Taken Comments Blood Pressure 120/75 12/17/2024 12:33 PM CDT Pulse 72 12/17/2024 12:33 PM CDT Temperature 36.9 C (98.4 F) 12/17/2024 12:33 PM CDT Respiratory Rate 11 09/27/2024 3:15 PM EXHIBITS CURATOR Oxygen Saturation 98% 12/17/2024 12:33 PM CDT Inhaled Oxygen Concentration - - Weight 83.1 kg (183 lb 3.2 oz) 12/17/2024 12:33 PM CDT Height 172.7 cm (5' 8) 12/17/2024 12:33 PM CDT Body Mass Index 27.86 12/17/2024 12:33 PM CDT Plan of Treatment Upcoming Encounters Date Type Department Care Team (Late st Contact Info) Description 06/19/2025 12:30 PM CDT Office Visit [facility] - GI [address] [facility] [place] [address] Marlene Gay PA-C [address] [place] [address] Health Maintenance Due Date Last Done Comments [...] prior to your last dose Insurance MEDICARE [facility] MEDICARE [facility] Care Teams Saas Architect Relationship Specialty Start Date End Date Cheo Potts MD [address] [place] [address] PCP - General 01/07/16
--- OUTSIDE RECORDS SUMMARY | 2025-02-18 20:40 | XMS_ITS | Referral Summary ---
Author Organization [facility] Address [address] [place] [address] Care Team Providers Care [employer] Driver Name Role Phone Cheo Potts MD Primary Care Provider Neftaly Portillo MD Unavailable [phone] Qi Norris MD Unavailable [phone] Katharina Mac QUALITY PROCESS ENGINEER Unavailable [phone] Tree Ruiz MD PhD Unavailable [phone] Oanh Trevizo QUALITY PROCESS ENGINEER Unavailable Torin Almodovar MD Unavailable [phone] Encounters Date Type Department Care Team Description 02/17/2025 Results Follow-Up [facility] Cardiology [address] [facility] [address] [place] [address] Mae Villanueva RMA CBC with auto differential, Basic metabolic panel 01/30/2025 Orders Only [facility] Neurosurgery [address] [facility] Advanced Medicine 6th [place] [address] [place] [address] Ewa Nath NP Lumbar spondylosis (Primary Dx); Lumbar stenosis with neurogenic claudication 01/29/2025 Telephone [facility] Neurosurgery [address] [facility] Advanced Medicine 6th [place] [address] [place] [address] Ewa Nath NP 01/17/2025 Telephone [facility] Neuro Sleep [address] [facility] 6th Floor [address] [place] [address] Rin Knapp, RN DME order 01/17/2025 2:30 PM CDT Office Visit [facility] Orthopaedic Surgery [address] [facility] 2nd Floor [address] [place] [address] Bell Smith PA Primary osteoarthritis of both knees (Primary Dx) 01/16/2025 Orders Only [facility] Stroke [address] [facility] 6th Floor [address] [place] [address] Mauro Zamora MD CORNEL (obstructive sleep apnea) (Primary Dx) 01/16/2025 Telephone [facility] Neuro Sleep [address] [facility] 6th Floor [address] [place] [phone] Rin Knapp RN 01/08/2025 Patient Message [facility] [address] [place] [address] Torin Almodovar MD PT 01/07/2025 12:45 PM CDT - 01/07/2025 11:59 PM CDT Hospital Encounter [facility] [address] [place] [address] Oanh Trevizo NP Spinal stenosis of lumbar region without neurogenic claudication (Primary Dx); Lumbar radiculopathy; Primary hypertension Discharge Disposition: Discharge to home or self care 01/06/2025 Telephone [facility] Cardiology [address] [place] [address] Medicine 8th [place] [address] [place] [address] Neftaly Portillo MD Dizziness; Chest Pain; Procedure (LHC) 01/01/2025 Telephone [facility] Cardiology [address] [place] [address] 8th [place] [address] [place] [address] Neftaly Portillo MD Medical Records Request 12/31/2024 Telephone [facility] [address] [place] [address] EarlMichelle cruz Med Management (Tramadol after seizure) 12/18/2024 Orders Only [facility] Cardiothoracic Surgery [facility] 8th Floor [address] Room [address] [place] [address] Dorothea Dick MD Aneurysm of ascending aorta without rupture (Primary Dx) 12/18/2024 9:45 AM CDT Office Visit [facility] Cardiothoracic Surgery [address] [facility] 8th Floor [address] Room [address] [address] Dorothea Dick MD Aneurysm of ascending aorta without rupture (Primary Dx) 12/06/2024 Results Follow-Up [facility] Cardiology [address] [place] [address] Building [address] [place] [address] Mae Villanueva RMA Basic metabolic panel 12/03/2024 Results Follow-Up [facility] Cardiology [address] [place] [phone] Zainab Francis NP Transthoracic Echo (TTE) Complete W Doppler/CF 11/25/2024 Results Follow-Up [facility] Cardiology [address] [place] [address] [place] [phone] Zainab Francis NP Basic metabolic panel, CBC with auto differential 11/25/2024 11:30 AM CDT Ancillary Procedure [facility] [address] [place] [address] [address] [place] [address] Left ventricular dysfunction 11/25/2024 1:00 PM CDT Office Visit [facility] Orthopaedic Surgery [address] [facility] Building [address] [place] [address] Bell Smith PA Primary osteoarthritis of both knees (Primary Dx) 11/19/2024 1:00 PM CDT Office Visit [address] [address] Zainab Francis NP Palpitations (Primary Dx); Left ventricular dysfunction; Aneurysm of ascending aorta without rupture; Paroxysmal atrial fibrillation (HCC); 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; Cardiomyopathy, unspecified type (HCC); Primary hypertension; Mixed hyperlipidemia; History of alcohol abuse; Obstructive sleep apnea syndrome from Last 3 Months Allergies Active Allergy Reactions Criticality Noted Date Comments Celecoxib Other (See comments) Low Altered depth perception Ciprofloxacin Muscle pain,Other (S ee comments) Medium 12/06/2017 Muscle weakness FEELS BAD Latex Rash,Itching Medium 04/11/2017 Medications calcium carbonate-vitamin D3 1,500 mg (600mg elemental) -800 unit per tabletIndications :Hypocalcemia Prevention,Preven tion of Vitamin D Deficiency 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 mouth wire cutter 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 Active coenzyme Q10 200 mg capsuleIndication s:supplement Take 1 capsule (200 mg total) by mouth nightly Active magnesium oxide 200 mg tablet,chewableIn dications:supplem ent Take 200 mg by mouth wire cutter 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 Active polyethylene glycol (MIRALAX) 17 gram packetIndications :constipation Take 1 packet (17 g total) by mouth nightly Active multivitamin no.44-vit D3-K 1,000-800 unit-mcg capsuleIndication s:Mineral Deficiency Prevention,Vitami n Deficiency Prevention 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 mouth wire cutter 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 Active azelastine (ASTELIN) 137 mcg (0.1 %) nasal sprayIndications: Seasonal Allergic Rhinitis Administer 2 sprays into each nostril nightly 1 Active fluocinolone in oil (DermOtic) 0.01 % dropsIndications: ear inflammation Administer 5 drops into each ear daily as needed (ear inflammation) 1 Active prochlorperazine (COMPAZINE) 10 mg tabletIndications :Nausea and Vomiting Take 1 tablet (10 mg total) by mouth every 6 (six) hours as needed for nausea or vomiting for nausea 2 Active finasteride (PROSCAR) 5 mg tabletIndications :benign prostatic hyperplasia with lower urinary tract sx Take 1 tablet (5 mg total) by mouth wire cutter 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 2 Active sucralfate (CARAFATE) 1 gram tabletIndications :Maintenance of Healing Gastric Ulcer Take 1 tablet (1 g total) by mouth 3 (three) times a day 3 Active cholecalciferol 400 unit capsuleIndication s:supplement Take 200 Units by mouth every other day Active loratadine 10 mg capsuleIndication s:Allergic Rhinitis Take 10 mg by mouth every [...] by mouth nightly 90 tablet 3 4 08/19/20 25 Active sacubitriL-valsar laguna (ENTRESTO) 24-26 mg tabletIndications :chronic heart failure 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 mouth 2 (two) times a day 28 tablet 4 Active dapagliflozin propanediol (FARXIGA) 10 mg tablet Take 1 tablet (10 mg total) by mouth daily 90 tablet 3 5 09/11/19 26 Active turmeric root extract 500 mg capsule Take by mouth Active omeprazole (PriLOSEC) 40 mg capsule Take 1 capsule (40 mg total) by mouth daily 5 Active gabapentin (NEURONTIN) 100 mg capsuleIndication s:Restless Legs Syndrome Take 1 capsule (100 mg total) by mouth 3 (three) times a day 90 capsule 11 5 09/25/19 26 Active busPIRone (BUSPAR) 5 mg tablet Take 1 tablet (5 mg total) by mouth 2 (two) times a day 4 Active sotaloL (BETAPACE) 120 mg tablet Take 1 tablet (120 mg total) by mouth 2 (two) times a day 180 tablet 3 5 10/30/19 26 Active acetaminophen-cod eine (TYLENOL with CODEINE #3) 300-30 mg per tabletIndications :Lumbar radiculopathy,DDD (degenerative disc disease), lumbar,Lumbar stenosis with neurogenic claudication,Spin al stenosis of lumbar region without neurogenic claudication,Lumb ar facet arthropathy 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 mouth every 8 (eight) hours as needed for pain 90 tablet 1 5 Active Hospital, Clinic, or Other Facility Administered Medication [...] GI bleeding 02/08/2023 Lumbar facet arthropathy 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 3 Lumbar radiculopathy 09/13/2022 Chronic midline low back pain without sciatica 0 09/13/2022 DDD (degenerative disc disease), lumbar 09/13/19 23 Sacroiliitis 09/13/2022 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 Chronic idiopathic constipation 07/16/2021 Hepatomegaly 07/16/2021 History of alcohol abuse 07/16/2021 PAD (peripheral artery disease) 02/26/2019 Coronary artery disease invo lving shawnee coronary artery 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 angina pectoris 01/30/2019 Overview (01/30/2019): Added automatically from request for surgery [id number] Abnormal EKG 01/30/2019 Overview (01/30/2019): Added automatically from request for surgery [id number] Sick sinus syndrome 04/20/2018 Overview (04/20/2018): Added automatically from request for surgery [id number] Assessment & Plan (04/27/2018 8:59 AM CDT): [...] PM CDT): - mild 3v dz on [facility] 03/2015 - ct ASA, statin Dizziness [...] drink = 0.6 oz pur e alcohol) [facility] Photorank Answer Date Recorded In the past 12 months has [employer], [employer], or water [employer] threatened to shut off services in your [...] 09/22/2023 How often do you attend chur or moravian services? Never 09/22/2023 Do you belong to [...] place to sleep or slept in a custodial (including now)? No 09/22/2023 Personal Safety Answer Date Recorded Have you ever been in or are you currently in a harmful physical or emotional relationship or is someone making you feel afraid or unsafe? 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 Gender Identity Male 11/05/2020 12:05 PM EMPLOYEE PLACEMENT SPECIALIST Sexual Orientation Not on file Last Filed [...] 9:53 AM CDT Height 175.3 cm (5' 9) 12/18/2024 9:53 AM CDT Body Mass Index 26.7 12/18/2024 9:53 AM CDT Plan of Treatment Upcoming Encounters Date Type Department Care Team (Latest Contact Info) Description 02/21/2025 10:50 AM CDT Hospital Encounter [address] [place] [phone] Neftaly Portillo MD [address] [address] Chest pain, unspecified type; Coronary artery disease of shawnee artery of shawnee heart with stable angina pectoris; Dizziness 02/21/2025 10:50 AM CDT - 02/21/2025 11:55 AM CDT Surgery [address] [facility] [place] [place] [phone] Neftaly Portillo MD [address] [address] LEFT HEART CATHETERIZATION WITH CORONARY ANGIOGRAPHY AND WITH OR WITHOUT LEFT VENTRICULOGRAM [id number] Medical Devices Implanted Type Area Corporate Accountant Device Identifier Shelf Expiration Date Model / Serial / Lot Medtronic Cardiac Rhythm Mgmt 5076-52 Capsurefix Novus 6.2fr 2mm 52cm Bipolar Screw In Implantable Latex Free - [id number] - [id number] Implanted:Qty: 1 on 04/24/2018 by Osmany Pina MD at [facility] Pacemaker Left: Heart Medtronic Cardiac Rhythm Mgmt [id number] 03/08/2020 5076-52 / [id number] / Medtronic Cardiac Rhythm Mgmt 5076-45 Capsurefix Novus Od6.2 Fr; Odsec2 Mm L45 Cm Bipolar; Screw In; Im - [id number] - [id number] Implanted:Qty: 1 on 04/24/2018 by Osmany Pina MD at [facility] Pacemaker Left: Heart Medtronic Cardiac Rhythm Mgmt [id number] 02/13/2020 5076-45 / [id number] / Medtronic Inc [id number] Attain Performa Starfix 5.3fr 5.1fr 88cm Quadripolar Is4-Llll Latex Free - [id number] - [id number] Implanted:Qty: 1 on 04/24/2018 by Osmany Pina MD at [facility] Pacemaker Left: Heart Medtronic Inc 02/15/2020 [id number] / [id number] / Pacemaker Cardiac 11mm 19.9cu Cm 46.5x59mm Rain Surescan - [id number] - [id number] Implanted:Qty: 1 on 04/24/2018 by Osmany Pina MD at [facility] Pacemaker Left: Chest Medtronic Inc 06/17/2019 [id number] / [id number] / Moore Vascular Device Clsr Perclose Prostyle Sut-Mediatd Closure-Repair Sys 71694-36 - [id number] - [id number] Implanted:Qty: 1 on 09/20/2023 by Antoine Nelson MD at [facility] Vascular Closure Device N/A: Femoral Vein [employer] 05/04/2025 80757-45 / [id number] / [id number] Procedures Procedure Name Priority Date/Time Associated Diagnosis Comments BASIC METABOLIC PANEL Routine 02/13/2025 11:56 AM CDT Dizziness Chest pain, unspecified type Primary hypertension 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 CBC WITH AUTO DIFFERENTIAL Routine 02/13/2025 11:56 AM CDT Dizziness Chest pain, unspecified type Primary hypertension 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 IA ARTHROCENTESIS ASPIR&/INJ MAJOR JT/BURSA W/O US Routine 01/17/2025 2:30 PM CDT Primary osteoarthritis of both knees BASIC METABOLIC PANEL Routine 12/05/2024 12:13 PM CDT 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 Palpitations IA ARTHROCENTESIS ASPIR&/INJ MAJOR JT/BURSA W/O US Routine 11/25/2024 1:00 PM CDT Primary osteoarthritis of both knees TRANSTHORACIC ECHO (TTE) COMPLETE W DOPPLER/CF WO CONTRAST Routine 11/25/2024 12:41 PM CDT Left ventricular dysfunction CBC WITH AUTO DIFFERENTIAL Routine 11/22/2024 12:30 PM CDT 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 BASIC METABOLIC PANEL Routine 11/22/2024 12:30 PM CDT 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 ECG 12-LEAD Routine 11/19/2024 1:48 PM CDT Palpitations CTA ABDOMINAL AORTA AND BILATERAL ILIOFEMORAL RUNOFF Schedule Routine, Read Routine (OP Routine) 02/18/2019 3:29 PM CDT Abnormal ankle brachial index (ODALIS) Pain in both lower extremities from Last 3 Months or Most Recently Relevant to Health Maintenance Results * CBC with auto differential (02/13/2025 11:56 AM CDT) WBC 5.3 3.8 - 10.8 Thousand/u L [facility] RBC, POC 4.55 4.20 - 5.80 Million/uL [facility] Hgb 14.4 13.2 - 17.1 g/dL [facility] Hct 43.9 38.5 - 50.0 % [facility] MCV 96.5 80.0 - 100.0 fL [facility] MCH 31.6 27.0 - 33.0 pg [facility] MCHC 32.8 32.0 - 36.0 g/dL [facility] Comment: For adults, a slight decrease in the calculated MCHC value (in the range of 30 to 32 g/dL) is most likely not clinically significant; however, it should be interpreted with caution in correlation with other red cell parameters and the patient's clinical condition. Rdw 13.3 11.0 - 15.0 % [facility] Platelets 254 140 - 400 Thousand/u L [facility] MPV 9.1 7.5 - 12.5 fL [facility] Neutrophils, abs 2,544 1,500 - 7,800 cells/uL [facility] Lymphocytes, abs 2,104 850 - 3,900 cells/uL [facility] Monocyte abs 541 200 - 950 cells/uL [facility] Eosinophils, abs 69 15 - 500 cells/uL [facility] Basophils, abs 42 0 - 200 cells/uL [facility] [employer] Neutrophils 48 % [facility] [employer] Lymphocyte pct 39.7 % [facility] Monocytes 10.2 % [facility] Eosinophils 1.3 % [facility] Basophils 0.8 % [facility] Blood 02/13/2025 11:5 6 AM CDT 02/13/2025 11:57 AM CDT Narrative [facility] - 02/14/2025 3:06 AM CDT FASTING:NO FASTING: NO us Neftaly Portillo MD LAB BLOOD ORDERABLES Final Res ult [facility] [address] [place] [address] * (ABNORMAL) Basic metabolic panel (02/13/2025 11:56 AM CDT) [facility] Glucose 93 65 - 99 mg/dL [facility] Comment: Fasting reference interval BUN 13 7 - 25 mg/dL [facility] Creatinine 0.64(L) 0.70 - 1.22 mg/dL [facility] eGFR 95 > OR = 60 mL/min/1.7 3m2 [facility] BUN/creat ratio 20 6 - 22 (calc) [facility] Sodium 137 135 - 146 mmol/L [facility] Potassium, pl 4.1 3.5 - 5.3 mmol/L [facility] Chloride 100 98 - 110 mmol/L [employer] stephanie Smith CO2 32 20 - 32 mmol/L [facility] Calcium 9.0 8.6 - 10.3 mg/dL [employer] stephanie Smith Blood 02/13/2025 11:5 6 AM CDT 02/13/2025 11:57 AM CDT Narrative [facility] - 02/14/2025 3:06 AM CDT FASTING:NO FASTING: NO us Neftaly Portillo MD LAB BLOOD ORDERABLES Final Res ult [facility] [address] [place] [address] * [place] ARTHROCENTESIS ASPIR&/INJ MAJOR JT/BURSA W/O US (01/17/2025 2:30 PM CDT) Narrative Bell Smith PA - 01/17/2025 2:30 PM CDT Bell Smith PA 01/17/2025 3:01 PM Large Joint Injection: bilateral knee Performed by: Bell Smith PA Authorized by: Bell Smith PA Large Joint Injection/Aspiration: Consent Given by: Patient Site marked: the procedure site was marked Verbal consent obtained: Yes Supporting Documentation: Indications: Pain Procedure Details: Location: Knee Site: Bilateral knee Prep: patient was prepped using a clean technique Needle Size: 21 G Approach: Anterolateral Ultrasound guided: No Fluroscopic guidance: No Medications Right Large Joint Injection: 48 mg hylan g-f 20 48 mg/6 mL Medications Left Large Joint Injection: 48 mg hylan g-f 20 48 mg/6 mL Patient tolerance: Patient tolerated the procedure well with no immediate complications us Bell HUYNH IN CLINIC/BEDSIDE OR DERABLES Final Result * (ABNORMAL) Basic metabolic panel (12/05/2024 12:13 PM CDT) Pathologist [facility] Glucose 63(L) 65 - 99 mg/dL [employer] stephanie Smith Comment: Fasting reference interval BUN 15 7 - 25 mg/dL [employer] stephanie Smith Creatinine 0.73 0.70 - 1.22 mg/dL [employer] stephanie Smith eGFR 91 > OR = [...] 12/05/2024 12:13 PM CDT us Zainab Francis QUALITY PROCESS ENGINEER LAB BLOOD ORDERABLES Final Re sult [facility] [address] [place] [address] * IA ARTHROCENTESIS ASPIR&/INJ MAJOR JT/BURSA W/O US (11/25/2024 [...] PM CDT Narrative 12/02/2024 11:[address] [facility] Cardiac Diagnostic Lab [address] [place] [address] Transthoracic Echocardiographic Report Patient Name: DONALD FATIMA MI : 1940 (84y 7m) Gender: M Study Date: 11/25/2024 12:03:57 PM Ht(Inch): 69 Wt(Lb): 182.1 BSA: 2.01 Journeyman Powerhouse Operator: Francisca Sánchez RDCS Location: [facility] Heart Rate: 74 BMI: 26.89 BP: 100 [...] LA Length 4C 4.17 cm AI Decel [place] 1.91 m/s2 LA Length 2C 4.69 cm [...] Procedure Note Neftaly Portillo MD - 12/02/2024 [facility] Cardiac Diagnostic Lab [address] , [address] [place] [address] Transthoracic Echocardiographic Report Patient Name: DONALD FATIMA MI : 1940 (84y 7m) Gender: M Study Date: 11/25/2024 12:03:57 PM Ht(Inch): 69 Wt(Lb): 182.1 BSA: 2.01 Journeyman Powerhouse Operator: Francisca Sánchez RDCS Location: [facility] Heart Rate: 74 BMI: 26.89BP: 100 / [...] [ -25.0 - -18.0 ] AI Decel [id number] sec LA Length 4C 4.17 cm AI Decel [place]1.91 m/s2 LA Length 2C 4.69 cm AI VBR351.96 msec LA Volume BP 45.23 ml MV [...] [ 3.10 - 3.70 ] MV Decel Eess154.67 msec [ 104.00 - 258.00 ] Ao [...] 12/02/2024 11:23:49 PM CDT us Zainab Francis QUALITY PROCESS ENGINEER CV ECHO PROCEDURES Final Resu lt * CBC with auto differential (11/22/2024 12:30 PM CDT) WBC 5.1 3.8 - 10.8 Thousand/u L [facility] RBC, POC 4.49 4.20 - 5.80 Million/uL [facility] Hgb 14.2 13.2 - 17.1 g/dL [facility] Hct 42.4 38.5 - 50.0 % [facility] MCV 94.4 80.0 - 100.0 fL [facility] MCH 31.6 27.0 - 33.0 pg [facility] MCHC 33.5 32.0 - 36.0 g/dL [facility] Comment: For adults, a slight decrease in the calculated MCHC value (in the range of 30 to 32 g/dL) is most likely not clinically significant; however, it should be interpreted with caution in correlation with other red cell parameters and the patient's clinical condition. Rdw 12.1 11.0 - 15.0 % [facility] Platelets 279 140 - 400 Thousand/u L [facility] MPV 8.9 7.5 - 12.5 fL [facility] Neutrophils, abs 2,392 1,500 - 7,800 cells/uL [facility] Lymphocytes, abs 2,035 850 - 3,900 cells/uL [facility] Monocyte abs 515 200 - 950 cells/uL [facility] Eosinophils, abs 97 15 - 500 cells/uL [facility] Basophils, abs 61 0 - 200 cells/uL [facility] Neutrophils 46.9 % [facility] Lymphocyte pct 39.9 % [facility] Monocytes 10.1 % [facility] Eosinophils 1.9 % [facility] Basophils 1.2 % [facility] Blood 11/22/2024 12:3 0 PM CDT 11/22/2024 12:30 PM CDT us Zainab Francis QUALITY PROCESS ENGINEER LAB BLOOD ORDERABLES Final Re sult [facility] [address] [place] [address] * (ABNORMAL) Basic metabolic panel (11/22/2024 12:30 PM CDT) [facility] Glucose 93 65 - 99 mg/dL [facility] Comment: Fasting reference interval BUN 11 7 - 25 mg/dL Nat Smith Creatinine 0.71 0.70 - 1.22 mg/dL Nat Candelaria-Mar[facility] Smith eGFR 92 > OR = 60 mL/min/1.7 3m2 Nat Smith BUN/creat ratio SEE NOTE: 6 - 22 (calc) Nat Candelaria-Maritza Smith Comment: Not Reported: BUN and Creatinine are within reference range. Sodium 130(L) 135 - 146 mmol/L Nat Smith Potassium, pl 4.4 3.5 - 5.3 mmol/L Nat Smith Chloride 95(L) 98 - 110 mmol/L Nat Candelaria-Maritza Smith CO2 29 20 - 32 mmol/L Nat Candelaria-Maritza Smith Calcium 8.9 8.6 - 10.3 mg/dL Nat Smith Blood 11/22/2024 12:3 0 PM CDT 11/22/2024 12:30 PM CDT Zainab Francis NP LAB BLOOD ORDERABLES Final Re sult [facility] [address] [place] [address] * ECG 12 lead (11/19/2024 1:48 PM CDT) Zainab Francis QUALITY PROCESS ENGINEER ECG ORDERABLES Final Result * CTA Abdominal Aorta And [...] Recently Relevant to Health Maintenance [place] [address] [facility] MEDICARE SUPPLEMENT MEDICARE MEDICARE [facility] MEDICARE [facility] MEDICARE SUPPLEMENT MEDICARE [facility] MEDICARE SUPPLEMENT Advance Directives For more information, please contact: [phone] * Full Code (Latest Code Status on File) Date Activated Date Inactivated Comments 09/20/2023 6:27 PM 09/21/2023 7:45 PM * Full Code Date Activated Date Inactivated Comments 04/24/2018 5:50 PM 04/27/2018 2:46 PM * Full Code Date Activated Date Inactivated Comments 03/24/2018 11:24 PM 03/25/2018 4:51 PM Care Teams Hazardous Materials Driver Relationship Specialty Start Date End Date Cheo Potts MD [address] [place] [address] PCP - General 01/03/17 Neftaly Portillo MD [address] [facility] [address] [place] [address] Consulting Physician Cardiology 11/15/18 Qi Norris MD [address] [address] Referring Physician Gastroenterology 05/10/23 Katharina Mac, DEBORA [address] [address] Nurse Practitioner Cardiology 11/21/23 Tree Ruiz MD PhD [address] [address] Consulting Physician Cardiology 11/21/23 [place] [address] [facility] 100 [place] [address] Nurse Practitioner Door Liner Helper 09/18/24 [place] [address] [facility] [address] [place] [address] Consulting Physician Pain Management 11/13/24
--- OUTSIDE RECORDS SUMMARY | 2025-02-18 20:40 | XMS_ITS | Encounter Summary ---
Author Organization [facility] Address [address] [place] [address] Phone Care Team Providers Care Straight Cutter Machine Name Role Phone Cheo Potts MD Primary Care Provider Neftaly Portillo MD Unavailable [phone] Tree Ruiz MD PhD Unavailable [phone] Katharina Mac RN DERMATOLOGY Unavailable [phone] Qi Norris MD Unavailable [phone] Yuly Nieves RN Unavailable Katharina Mac RN DERMATOLOGY Unavailable Tree Ruiz MD PhD Unavailable [phone] Oanh Trevizo RN DERMATOLOGY Unavailable Oanh Trevizo RN DERMATOLOGY Unavailable Torin Almodovar MD Unavailable Encounter Details [...] on file 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 Gender Identity Male 11/05/2020 12:05 PM 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 Sexual Orientation Not on file documented as of this encounter Plan of Treatment Upcoming Encounters Date Type Department Care Team (Latest Contact Info) Description 02/21/2025 10:50 AM CDT Hospital Encounter [address] [place] [id number] Neftaly Portillo MD [address] [id number] Chest pain, unspecified type; Coronary artery disease of [place] artery of [place] heart with stable angina pectoris; Dizziness 02/21/2025 10:50 AM CDT - 02/21/2025 11:55 AM CDT Surgery [address] [place] [id number] Neftaly Portillo MD [address] [id number] LEFT HEART CATHETERIZATION WITH CORONARY ANGIOGRAPHY AND WITH OR WITHOUT LEFT VENTRICULOGRAM [id number] documented as of this encounter Procedures Procedure Name Priority Date/Time Associated Diagnosis Comments SLEEP LAB/STUDY - RESULT 12/20/2018 documented in this encounter Results * SLEEP LAB/STUDY - RESULT (12/20/2018) us Provider Scanning Final Result documented in this encounter Visit Diagnoses Not on filedocumented in this encounter Care Teams Straight Cutter Machine Relationship Specialty Start Date End Date Cheo Potts MD [address] [place] [address] PCP - General 01/03/17 Neftaly Portillo MD [address] [id number] Consulting Physician Cardiology 11/15/18 Tree Ruiz MD PhD 5201 [facility] [address] [place] [id number] Referring Physician Cardiology 12/10/20 11/20/23 Katharina Mac, DEBORA 5201 [facility] [address] [place] [address] Referring Physician Cardiology 12/10/20 11/20/23 Qi Norris MD 2 [facility] [address] [place] [address] Referring Physician Gastroenterology 05/10/23 Yuly Nieves, RN 4590 [facility] 5300 [place] [address] SHOP Outpatient Motor And Chassis Inspector 09/22/23 10/18/23 Katharina Mac NP 4590 [facility] 5300 [place] [address] Nurse Practitioner Cardiology 11/21/23 Tree Ruiz MD PhD 4590 [facility] 5300 [place] [address] Consulting Physician Cardiology 11/21/23 [place] [address] [facility] 100 [place] [address] Nurse Practitioner Stationary Fireman 07/18/24 11/12/24 [place] [address] [facility] 100 [place] [address] Nurse Practitioner Stationary Fireman 09/18/24 [place] [address] [facility] [address] [place] [address] Consulting Physician Pain Management 11/13/24 documented as of this encounter
--- OUTSIDE RECORDS SUMMARY | 2025-02-18 20:40 | XMS_ITS | Continuity of Care Document ---
Author Organization [employer] [place] Address [address] [facility] [address] [place] [address] Phone Care Team Providers Care Specialty Department Supervisor Name Role Phone Juve PT,MPT,ATC, Armando Unavailable Unavai lable Procedures Procedure Date Therapeutic Activities Neuromuscular Re-Ed Therapeutic Exercise Therapeutic Activities Therapeutic Exercise Neuromuscular Re-Ed Therapeutic Activities Therapeutic Exercise Therapeutic Exercise Therapeutic Activities Therapeutic Activities Therapeutic Exercise Therapeutic Exercise Therapeutic Activities Doc neg elder mal no plan Doc neg elder mal no plan Doc neg elder mal no plan PT Evaluation High Complexity Therapeutic Activities Therapeutic Activities Therapeutic Activities Therapeutic Activities Therapeutic Exercise Therapeutic Activities Therapeutic Exercise PT Evaluation High [...] Re-Ed Therapeutic Exercise Manual Therapy Therapeutic Activities Manual Therapy Therapeutic Exercise Therapeutic Exercise Therapeutic Activities Neuromuscular Re-Ed Manual [...] Diagnoses Date Provider Providers Copied on Encounter [facility], [place], [place], [address], tel:[phone] Foster No Information Sep-2 2 Juve Castaneda [place], [place]. [facility], [place], [place], [address], tel:[phone] Foster No Information Sep-2 2 Juve Castaneda [place]. [facility], [place], [place], [address], tel:[phone] Foster No Information Sep-2 2 Juve Castaneda [place], . [facility], [place], [place], [address], tel:[phone] Foster No Information Sep-1 2 Juve Castaneda [place], [place]. [facility], [place], [place], [address], [place] tel:[phone] Foster No Information Sep-1 - 2 An Armando. , [place], [place]. [facility], [place], [address], [place] tel:[phone] Foster No Information Sep-0 2 An Armando. , [place], [place]. [facility], [place], [place], [address], [place] tel:[phone] Foster No Information Sep-0 2 An Armando. , [place], [place]. [facility], [address], [place], [place], [address], tel:[phone] Foster No Information Dec-2 - 0 An Armando. , [place], [place]. [facility], [place], [place], [address], [place] tel:[phone] Foster No Information Aug-09 08- 0 An Armando. , [place], [place]. [facility], [place], [place], [address], [place] tel:[phone] Foster No Information 2 - 0 An Armando. , [place], [place]. [facility], [place], [place], [address], [place] tel:[phone] Foster No Information Jul-1 - 0 An Armando. , [place]. [facility], [place], [place], [address], [place] tel:[phone] Foster No Information Jul-0 0 An Armando. , [place]. [facility], [place], [place], [address], [place] tel:[phone] Foster No Information - 0 An Armando. , [place], [place]. [facility], [place], [place], [address], [place] tel:[phone] Foster No Information 0 An Armando. , [place]. [facility], [place], [place], [address], tel:[phone] Foster No Information 0 An Armando. , [place]. [facility], [place], [place], [address], tel:[phone] Foster No Information 0 An Armando. , [place]. [facility], [place], [place], [address], tel:[phone] Foster No Information 0 An Armando. , [place], [place]. [facility], [place], [place], [address], tel:[phone] Foster No Information 9 Makler Luke. . [facility], [place], [place], [address], [place] tel:[phone] Foster No Information 9 An Armando. , [place], [place]. [facility], [place], [place], [address], tel:[phone] Foster No Information 9 Makler Luke. . [facility], [place], [place], [address], [place] tel:[phone] [place] No Information 0 9 Omar Durham. . Referring Provider: Tarik Fish, [address], [place], [address]. tel:[phone] [facility], [place], [place], [address], [place] tel:[phone] [place] No Information Oct-0 1-201 9 Treaster Marva. . Referring Provider: Nel Su[address]rez[address], [place], [address]. tel:[phone] [place] [address] [address], [place], [place], [address], tel:[phone] [place] No Information Sep-2 6-201 9 Treaster Marva. . Referring Provider: Nel Suárez[address], [place], [address]. tel:[phone] [place] [address] [address], [place], [place], [address], [place] tel:[phone] [place] No Information Sep-1 9-201 9 Treaster Marva. . Referring Provider: Nel Suárez[address], [place], [address]. tel:[phone] [place] [address] [facility] [address], [place], [place], [address], [place] tel:[phone] [place] No Information Sep-1 0-201 9 Treaster Marva. . Referring Provider: Nel Suárez[address], [place], [address]. tel:[phone] [place] [address] [address], [place], [place], [address], [place] tel:[phone] [place] No Information Sep-0 3-201 9 Treaster Marva. . Referring Provider: Nel Suárez[address], [place], [address]. tel:[phone], [place], [place], [address], [place] tel:[phone] Foster No Information Apr-2 7-201 9 [place], [place]. Referring Provider: Nel Suárez[address], [place], [address]. tel:[phone] [facility], [place], [place], [address], [place] tel:[phone] Foster Pain in left shoulderPain in right shoulder 8 An Armando. , [place], [place]. [facility], [place], [place], [address], [place] tel:[phone] Foster Pain in left shoulderPain in right shoulder 8 An Armando. , [place]. [facility], [place], [place], [address], [place] tel:[phone] Foster Pain in left shoulderPain in right shoulder 8 An Armando. , [place], [place]. [facility], [place], [place], [address], [place] tel:[phone] Foster Pain in left shoulderPain in right shoulder 8 An Armando. , [place], [place]. [facility], [place], [place], [address], [place] tel:[phone] Foster Pain in left shoulderPain in right shoulder 8 An Armando. , [place], [place]. [facility], [place], [place], [address], [place] tel:[phone] Foster Pain in left shoulderPain in right shoulder 8 An Arm[place]. , [place]. [facility], [place], [place], [address], [place] tel:[phone] Foster Pain in left shoulderPain in right shoulder 8 An Arm[place]. , [place], [place]. [facility], [place], [place], [address], [place] tel:[phone] Foster Pain in left shoulderPain in right shoulder Jun- 8 Juve Roberts. , [place], [place]. [facility], [place], [place], [address], [place] tel:[phone] Foster Pain in left shoulderPain in right shoulder Jun- 8 Francisco Qureshi. . [facility], [place], [place], [address], [place] tel:[phone] Foster Pain in left shoulderPain in right shoulder Jun- 8 Juve Roberts. , [place], [place]. [facility], [place], [place], [address], [place] tel:[phone] Foster Pain in left shoulderPain in right shoulder Jun- 8 Juve Castaneda , [place], [place]. [facility], [place], [place], [address], [place] tel:[phone] Foster Pain in left shoulderPain in right shoulder Jun-0 8 Juve Roberts. , [place], [place]. [facility], [place], [place], [address], [place] tel:[phone] Foster Spinal stenosis, lumbar region without neurogenic andre Apr-0 8 Juve Castaneda , [place], [place]. Referring Provider: Chris [address], [place], [place], [facility]. tel:[phone] [facility], [place], [place], [address], [place] tel:[phone] Foster Spinal stenosis, lumbar region without neurogenic andre Apr-0 8 Juve Castaneda [place], [place]. Referring Provider: Chris Á[address], [place], [address]. tel:[phone] [facility], [place], [place], [address], [place] tel:[phone] Foster Spinal stenosis, lumbar region without neurogenic andre Apr-0 2-201 8 An Armando. , [place], [place]. Referring Provider: Aguila Álvarez[address] [place] [address] [address], [place], [facility]. tel:[phone] [facility], [address], [place], [place], [address], [place] tel:[phone] Foster Spinal stenosis, lumbar region without neurogenic andre Mar-3 0-201 8 Wisner Armando. , [place], [place]. Referring Provider: Cheo Potts [address] [place] [address] [address], [place], [facility]. tel:[phone] [facility] [address], [place], [place], [address], [place] tel:[phone] Foster Spinal stenosis, lumbar region without neurogenic andre Mar-2 8-201 8 Wisner Armando. , [place], [place]. Referring Provider: Aguila Álvarez[address] [place] [address] [address], [place], [facility]. tel:[phone] [place] [address] [facility] [address], [place], [place], [address], [place] tel:[phone] Foster Spinal stenosis, lumbar region without neurogenic andre Mar-2 6-201 8 [facility] , [place], [place]. Referring Provider: Aguila Álvarez[address] [place] [address] [address], [place], [facility]. tel:[phone] [facility] [address], [place], [place], [address], [place] tel:[phone] Foster Spinal stenosis, lumbar region without neurogenic andre Mar-2 3-201 8 [facility]. , [place]. Referring Provider: Aguila Álvarez[address] [place] [address] [address], [place], [facility]. tel:[phone] [facility] [address], [place], [place], [address], [place] tel:[phone] Foster Spinal stenosis, lumbar region without neurogenic andre Mar-2 1-201 8 An Armando. , [place], [place]. Referring Provider: Aguila Álvarez[address] [place] [address] [address], [place], [address]. tel:[phone] [place] [address], [place], [place], [address], [place] tel:[phone] Foster Spinal stenosis, lumbar region without neurogenic andre Mar-1 9-201 8 An Armando. , [place], [place]. Referring Provider: Aguila Álvarez[address] [place] [address] [address], [place], [facility]. tel:[phone] [place] [address], [place], [place], [address], [place] tel:[phone] Foster No Information Mar-1 6-201 8 An Armando. , [place], [place]. Referring Provider: Aguila Álvarez[address] [place] [address] [address], [place], [facility]. tel:[phone], [place], [place], [address], [place] tel:[phone] Foster No Information Mar-1 4-201 8 An Armando. , [place], [place]. Referring Provider: Chris [facility]lvarez [facility] [address], [place], [facility]. tel:[phone], [place], [place], [address], [place] tel:[phone] Foster No Information Mar-1 2-201 8 An Armando. , [place], [place]. Referring Provider: Chris [facility]lvarez [facility] [address], [place], [facility]. tel:[phone] [facility] [address], [place], [place], [address], [place] tel:[phone] Foster No Information Mar-0 9-201 8 An Armando. , [place], [place]. Referring Provider: Chris [facility]lvarez [facility] [address], [place], [facility]. tel:[phone] [place] [address], [place], [place], [address], [place] tel:[phone] Foster No Information Mar-0 7-201 8 An Armando. , [place], [place]. Referring Provider: Cheo Potts [address] [place] [address] [address], [place], [facility]. tel:[phone] [facility] [address], [place], [place], [address], [place] tel:[phone] Foster No Information Mar-0 5-201 8 An Armando. , [place], [place]. Referring Provider: Cheo Potts [address] [place] [address] [address], [place], [facility]. tel:[phone] [facility] [address], [place], [place], [address], tel:[phone] Foster No Information Mar-0 2-201 8 Guillermina Adames. . Referring Provider: Cheo Potts [address] [place] [address] [address], [place], [facility]. tel:[phone] [facility], [address], [place], [place], [address], [place] tel:[phone] Foster Spinal stenosis, lumbar region without neurogenic andre Feb-2 8-201 8 An Armando. , [place], [place]. Referring Provider: Cheo Potts [address] [place] [address] [address], [place], [facility]. tel:[phone] [facility] [address], [place], [place], [address], [place] tel:[phone] Foster No Information Nov-0 9-201 7 An Armando. , [place], [place]. Referring Provider: Tarik Fish, [address] [facility] [address], [place], [address]. tel:[phone] [facility], [place], [place], [address], [place] tel:[phone] Foster No Information Nov-0 1-201 7 [facility] Referring Provider: Nel Suárez[address], [place], [address]. tel:[phone], [place], [place], [address], [place] tel:[phone] Foster No Information Jun-3 0-201 7 [facility]. , [place], [place]. Referring Provider: Nel Suárez[address], [place], [address]. tel:[phone] [facility] [address], [place], [place], [address], [place] tel:[phone] Foster No Information Jun-2 3-201 7 [facility] [place]. Referring Provider: Nel Suárez[address], [place], [address]. tel:[phone] [facility] [address], [place], [place], [address], [place] tel:[phone] Foster No Information Jun- 9-201 7 [facility] [place]. Referring Provider: Tacos Su[address]rez [address], [place], [address]. tel:[phone] [facility] [address], [place], [place], [address], [place] tel:[phone] Foster No Information Jun-1 6-201 7 [facility] [place]. Referring Provider: Nel Suárez[address], [place], [address]. tel:[phone] [facility] [address], [place], [place], [address], [place] tel:[phone] Foster No Information Jun-0 9-201 7 Wisner Armando. , [place], [place]. Referring Provider: Tacos Suárez [address], [place], [address]. tel:[phone] [facility] [address], [place], [place], [address], tel:[phone] Foster No Information Jun-0 7 [place], . Referring Provider: Tacos Suárez [address], [place], [address]. tel:[phone] [facility] [address], [place], [place], [address], tel:[phone] Foster No Information Jun-0 7 [place], . Referring Provider: Tacos Suárez [address], [place], [address]. tel:[phone] [facility] [address], [place], [place], [address], tel:[phone] Foster No Information Sep-2 7 [place], . Referring Provider: Tacos Suárez [address], [place], [address]. tel:[phone] [facility] [address], [place], [place], [address], tel:[phone] Michelle No Information Sep-2 7 Niederhomatthias Adames. . Referring Provider: Tacos Suárez [address], [place], [address]. tel:[phone] [facility] [address], [place], [place], [address], [place] tel:[phone] Michelle Stiffness of right knee, not elsewhere classifiedPai n in right kneeOth disrd of synovium and tendon, unspecified siteAbnormal posture Sep-2 7 Niederhoffer Rosangela. . Referring Provider: Tacos Suárez [address], [place], [address]. tel:[phone] Family History Family Member Type Diagnosis Age At Onset No Information Payers Payer name Insurance type Covered green party ID Authordariena tikavon(s) Medicare [place] MB [id number] [facility] [id number] Social History Type Description Quantity Date Captured [...]
--- OUTSIDE RECORDS SUMMARY | 2025-02-18 20:40 | XMS_ITS | Encounter Summary ---
Author Organization [facility] Address [address] [place] [address] Phone Care Team Providers Care Cdl Instructor Name Role Phone Cheo Potts MD Primary Care Provider Neftaly Portillo MD Unavailable [phone] rTee Ruiz MD PhD Unavailable [phone] Katharina Mac DATABASE MANAGEMENT SYSTEM SPECIALIST Unavailable Qi Norris MD Unavailable [phone] Yuly Nieves RN Unavailable Katharina Mac DATABASE MANAGEMENT SYSTEM SPECIALIST Unavailable Tree Ruiz MD PhD Unavailable [phone] Oanh Trevizo DATABASE MANAGEMENT SYSTEM SPECIALIST Unavailable Oanh Trevizo DATABASE MANAGEMENT SYSTEM SPECIALIST Unavailable Torin Almodovar MD Unavailable Encounter Details Date Type Department Care Team (Latest Contact Info) Description 01/25/2023 Orders Only [facility] Berenice Olivares, RN [address] [facility] [address] [place] [address] Social History Tobacco Use Types [...] on file 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 Gender Identity Male 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 Sexual Orientation Not on file documented as of this encounter Plan of Treatment Upcoming Encounters Date Type Department Care Team (Latest Contact Info) Description 02/21/2025 10:50 AM CDT Hospital Encounter [address] [place] [address] Neftaly Portillo MD [address] [address] Chest pain, unspecified type; 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; Dizziness 02/21/2025 10:50 AM CDT - 02/21/2025 11:55 AM CDT Surgery [address] [place] [address] Neftaly Portillo MD [address] [id number] LEFT HEART CATHETERIZATION WITH CORONARY ANGIOGRAPHY AND WITH OR WITHOUT LEFT VENTRICULOGRAM [id number] documented as of this encounter Procedures Procedure Name Priority Date/Time Associated Diagnosis Comments SCAN - LABS 01/25/2023 documented in this encounter Results * SCAN - LABS (01/25/2023) Berenice Olivares RN Final Result documented in this encounter Visit Diagnoses Not on filedocumented in this encounter Care Teams Cdl Instructor Relationship Specialty Start Date End Date Cheo Potts MD [address] [place] [address] PCP - General 01/03/17 Neftaly Portillo MD [address] [place] [address] Consulting Physician Cardiology 11/15/18 Tree Ruiz MD PhD [address] [place] [address] Referring Physician Cardiology 12/10/20 11/20/23 Katharina Mac, DEBORA [address] [place] [address] Referring Physician Cardiology 12/10/20 11/20/23 Qi Norris MD [address] [address] Referring Physician Gastroenterology 05/10/23 Yuly Nieves, CLARISSA [address] [place] [address] SHOP Outpatient Room Maid 09/22/23 10/18/23 Katharina Mac, DEBORA [address] [place] [address] Nurse Practitioner Cardiology 11/21/23 Tree Ruiz MD PhD [address] [place] [address] Consulting Physician Cardiology 11/21/23 Oanh Trevizo, DEBORA [address] [facility] 100 [place] [address] Nurse Practitioner Boil Off Machine Operator Cloth 07/18/24 11/12/24 Oanh Trevizo, DEBORA [address] [facility] [place] [facility] 100 [place] [address] Nurse Practitioner Boil Off Machine Operator Cloth 09/18/24 [place] [address] [facility] [place] [facility] [address] [address] Consulting Physician Pain Management 11/13/24 documented as of this encounter
--- OUTSIDE RECORDS SUMMARY | 2025-02-18 20:40 | XMS_ITS | Encounter Summary ---
Author Organization [facility] Address [address] [place] [address] Phone Care Team Providers Care Agribusiness Professor Name Role Phone Cheo Potts MD Primary Care Provider Neftaly Portillo MD Unavailable [phone] Tree Ruiz MD PhD Unavailable [phone] Katharina Mac PURCHASING AGENT Unavailable Qi Norris MD Unavailable [phone] Yuly Nieves RN Unavailable Katharina Mac PURCHASING AGENT Unavailable Tree Ruiz MD PhD Unavailable [phone] Oanh Trevizo PURCHASING AGENT Unavailable Oanh Trevizo PURCHASING AGENT Unavailable [phone] Torin Almodovar MD Unavailable [phone] Encounter Details Date Type Department Care Team (Latest Contact Info) Description 10/05/2022 Orders Only [facility] Berenice Olivares, RN [address] [facility] [address] [place] [address] Social History Tobacco Use Types [...] on file 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 Gender Identity Male 11/05/2020 12:05 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 Sexual Orientation Not on file documented as of this encounter Plan of Treatment Upcoming Encounters Date Type Department Care Team (Latest Contact Info) Description 02/21/2025 10:50 AM CDT Hospital Encounter [address] [place] [address] Neftaly Portillo MD [address] [address] Chest pain, unspecified type; Coronary artery disease of [place] artery of [place] heart with stable angina pectoris; Dizziness 02/21/2025 10:50 AM CDT - 02/21/2025 11:55 AM CDT Surgery [address] [place] [address] Neftaly Portillo MD [address] [id number] LEFT HEART CATHETERIZATION WITH CORONARY ANGIOGRAPHY AND WITH OR WITHOUT LEFT VENTRICULOGRAM [address] documented as of this encounter Procedures Procedure Name Priority Date/Time Associated Diagnosis Comments SCAN - LABS 10/05/2022 documented in this encounter Results * SCAN - LABS (10/05/2022) Berenice Olivares RN Final Result documented in this encounter Visit Diagnoses Not on filedocumented in this encounter Care Teams Agribusiness Professor Relationship Specialty Start Date End Date Cheo Potts MD [address] [place] [address] PCP - General 01/03/17 Neftaly Portillo MD [address] [place] [address] Consulting Physician Cardiology 11/15/18 Tree Ruiz MD PhD [address] [place] [address] Referring Physician Cardiology 12/10/20 11/20/23 Katharina Mac, DEBORA [address] [place] [address] Referring Physician Cardiology 12/10/20 11/20/23 Qi Norris MD [address] [address] Referring Physician Gastroenterology 05/10/23 Yuly Nieves, CLARISSA [address] [place] [address] SHOP Outpatient Laboratory Operations Coordinator 09/22/23 10/18/23 Katharina Mac, DEBORA [address] [place] [address] Nurse Practitioner Cardiology 11/21/23 Tree Ruiz MD PhD [address] [place] [address] Consulting Physician Cardiology 11/21/23 Oanh Trevizo, DEBORA [address] [facility] 100 [place] [address] Nurse Practitioner Perfusionist 07/18/24 11/12/24 Oanh Trevizo, DEBORA [address] [facility] [place] [facility] 100 [place] [address] Nurse Practitioner Perfusionist 09/18/24 [place] [address] [facility] [facility] [address] [address] Consulting Physician Pain Management 11/13/24 documented as of this encounter
--- OUTSIDE RECORDS SUMMARY | 2025-02-18 20:40 | XMS_ITS | Encounter Summary ---
Author Organization [facility] Address [address] [facility] [place] [address] Phone Care Team Providers Care Credit Collections Rep Name Role Phone Cheo Potts MD Primary Care Provider Marques Barksdale DO Unavailable [phone] Barbara Warner APRN, TENNIS CAMP INSTRUCTOR Unavailable Qi Norris MD Unavailable [phone] Reason for Visit * Reason Comments Medication Refill Encounter Details Date Type Department Care Team (Late st Contact Info) Description 11/20/2022 Refill [facility] [address] [place] [id number] Renetta Jacob Duyen, PAC [address] [place] [address] Medication Refill Social History Tobacco Use Types [...] present documented in this encounter Care Teams Credit Collections Rep Relationship Specialty Start Date End Date Cheo Potts MD [address] [facility] [address] [place] [address] PCP - General Family Medicine 11/09/15 Marques Barksdale DO [address] [place] [address] [address] [place] [address] Gastroenterology 11/12/15 Barbara Warner APRN, TENNIS CAMP INSTRUCTOR [address] [place] [address] Nurse Practitioner Advanced Practice Nurse 10/24/22 Qi Norris MD [address] [place] [address] Consulting Physician Gastroenterology 05/12/22 documented as of this encounter
--- OUTSIDE RECORDS SUMMARY | 2025-02-18 20:40 | XMS_ITS | Encounter Summary ---
Author Organization [facility] Address [address] [place] [address] Phone Care Team Providers Care Population Geneticist Name Role Phone Cheo Potts MD Primary Care Provider Neftaly Portillo MD Unavailable [phone] Qi Norris MD Unavailable [phone] Katharina Mac CREDIT CLERK Unavailable [phone] Tree Ruiz MD PhD Unavailable [phone] Oanh Trevizo CREDIT CLERK Unavailable [phone] Torin Almodovar MD Unavailable [phone] Encounter Details Date Type Department Care Team (Late st Contact Info) Description 02/17/2025 Results Follow-Up [facility] Cardiology [address] [facility] Medical Office Building [address] [place] [address] Mae Villanueva RMA CBC with auto differential, Basic metabolic panel Social History Tobacco Use Types Packs/Day Years Used Date Smoking Tobacco: Former Cigarettes Q uit: 1972 Passive Smoke Exposure: Past Smokeless Tobacco: Never Alcohol Use Standard Drinks/Week Comments Yes 7 (1 standard drink = 0.6 oz pur e alcohol) [facility] Utilities Answer Date Recorded In the past 12 months has [employer] electric, gas, oil, or water company threatened [...] often do you attend chur ch or cheondoism services? Never 09/22/2023 Do you belong to any clubs o r organizations such as adventist groups, unions, fraternal or athletic groups, or [...] place to sleep or slept in a assisted (including now)? No 09/22/2023 Personal Safety Answer Date Recorded Have you ever been in or are you currently in a harmful physical or emotional relationship or is someone making you feel afraid or unsafe? Denies 09/20/2023 Sex and Gender Information Value Date Recorded Sex Assigned at Not on file Legal Sex Male 3:18 AM ASPNET DEVELOPER Gender Identity Male 11/05/2020 12:05 PM ASPNET DEVELOPER Sexual Orientation Not on file documented as of this encounter Plan of Treatment Upcoming Encounters Date Type Department Care Team (Latest Contact Info) Description 02/21/2025 10:50 AM CDT Hospital Encounter [address] [place] [phone] Neftaly Portillo MD [address] [address] Chest pain, unspecified type; Coronary artery disease of [place] artery of [place] heart with stable angina pectoris; Dizziness 02/21/2025 10:50 AM CDT - 02/21/2025 11:55 AM CDT Surgery [address] [place] [address] Neftaly Portillo MD [address] [address] LEFT HEART CATHETERIZATION WITH CORONARY ANGIOGRAPHY AND WITH OR WITHOUT LEFT VENTRICULOGRAM [address] documented as of this encounter Visit Diagnoses Not on filedocumented in this encounter Care Teams Population Geneticist Relationship Specialty Start Date End Date Cheo Potts MD [address] [place] [address] PCP - General 01/03/17 Neftaly Portillo MD [address] [facility] [address] [place] [address] Consulting Physician Cardiology 11/15/18 Qi Norris MD 2 [facility] 305 [place] [address] Referring Physician Gastroenterology 05/10/23 Katharina Mac NP 2 [facility] 305 [place] [address] Nurse Practitioner Cardiology 11/21/23 Tree Ruiz MD PhD 2 [facility] [address] [place] [address] Consulting Physician Cardiology 11/21/23 [place] [address] [facility] 100 [place] [address] Nurse Practitioner Refuse Driver 09/18/24 [place] [address] [facility] [address] [place] [address] Consulting Physician Pain Management 11/13/24 documented as of this encounter
--- OUTSIDE RECORDS SUMMARY | 2025-02-18 20:40 | XMS_ITS | Encounter Summary ---
Author Organization [facility] Address [address] [place] [address] Phone Care Team Providers Care Bill Sorter Name Role Phone Cheo Potts MD Primary Care Provider Marques Barksdale DO Unavailable [phone] Barbara Warner APRN, CNA GNA Unavailable Qi Norris MD Unavailable [phone] Reason for Visit * Reason Comments Medication Refill Encounter Details Date Type Department Care Team (Late st Contact Info) Description 08/23/2024 Refill [facility] - [facility] [address]2 [place] [id number] Barbara Warner APRN, CNA GNA [address] [place] [address] Medication Refill Social History Tobacco Use Types [...] Oanh Recinos RN - 08/23/2024 1:57 PM CIRCULAR SAW EDGE FUSER Medication refilled and signed per [facility] chronic medication standing order for pediatric and adult patients. ULAR SAW EDGE FUSER documented in this encounter Plan of Treatment Not on file documented as of this encounter Visit Diagnoses Diagnosis Gastroesophageal reflux disease, unspecified whether esophagitis present documented in this encounter Care Teams Bill Sorter Relationship Specialty Start Date End Date Cheo Potts MD [address] [place] [address] [place] [address] PCP - General Family Medicine 11/09/15 Marques Barksdale DO [address] [place] [address] [address] [place] [address] Gastroenterology 11/12/15 Barbara Warner APRN, CNA GNA [address] [place] [address] Nurse Practitioner Advanced Practice Nurse 10/24/22 Qi Norris MD #2 [place] [address] Consulting Physician Gastroenterology 05/12/22 documented as of this encounter
--- OUTSIDE RECORDS SUMMARY | 2025-02-18 20:40 | XMS_ITS | Clinical Summary ---
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 3 History of alcohol abuse 07/16/2021 Hepatomegaly 07/16/2021 Chronic idiopathic constipation 07/16/2021 Gastroesophageal reflux disease without esophagi tis 07/16/2021 PAD (peripheral artery disease) 02/26/2019 Coronary artery disease invo lving rincon coronary artery of rincon heart without angina pectoris 01/30/2019 Overview (10/24/2022): Added automatically from request for surgery [id number] Sick sinus syndrome 04/20/2018 Overview (10/24/2022): Added automatically from request for surgery [id number] Last Assessment & Plan: Cardiac resynchronization defibrillator [...] 11:14 AM CDT Height 172.7 cm (5' 8) 12/01/2023 11:14 AM CDT Body Mass Index 26.67 12/01/2023 11:14 AM CDT Plan of Treatment Health Maintenance Due Date Last Done Comments Hepatitis C Virus (HCV) Screening 1942 TdaP Immunization 1942 Cologuard 1987 Immunochemical Fecal Occult Blood 1987 SARS-COV-2 Immunization ( season) 2024 06/13/2023, 05/16/2022, 12/04/2021, Additional history exists Colonoscopy 03/19/2025 03/19/2020, 04/04, 03/08/2012 Colorectal Cancer Screening 03/19/2025 Influenza Immunization (Season Ended) 2025 06/07/2023, 06/04/2023, 05/30/2022, Additional history exists Zoster Immunization Completed 01/15/2023, Pneumococcal Immunization (50+ [...] Recently Relevant to Health Maintenance Insurance MEDICARE [facility] Care Teams Non Acoustic Operator Relationship Specialty Start Date End Date Cheo Potts MD [address] [place] [address] PCP - General Family Medicine 11/09/15 Marques Barksdale DO [address] [facility] [address] [place] [address] Gastroenterology 11/12/15 Barbara Warner APRN, FRENCH FOLDER [address] [place] [address] Nurse Practitioner Advanced Practice Nurse 10/24/22 Qi Norris MD [address]2 [place] [address] Consulting Physician Gastroenterology 05/12/22
--- OUTSIDE RECORDS SUMMARY | 2025-02-18 20:40 | XMS_ITS | Encounter Summary ---
Author Organization [facility] Address [address] [place] [address] Phone Care Team Providers Care Decorator Consultant Name Role Phone Cheo Potts MD Primary Care Provider Neftaly Portillo MD Unavailable [phone] Tree uRiz MD PhD Unavailable [phone] Katharina Mac COMMERCIAL RELIEF DRIVER Unavailable Qi Norris MD Unavailable [phone] Yuly Nieves RN Unavailable Katharina Mac COMMERCIAL RELIEF DRIVER Unavailable [phone] Tree Ruiz MD PhD Unavailable [phone] Oanh Trevizo COMMERCIAL RELIEF DRIVER Unavailable Oanh Trevizo COMMERCIAL RELIEF DRIVER Unavailable Torin Almodovar MD Unavailable Reason for Visit * Reason Onset Date Comments CALL BACK 04/20/2018 Encounter Details Date Type Department Care Team (Late st Contact Info) Description 04/20/2018 Telephone [facility] Cardiology [address] [facility] 8th [place] [address] [place] [address] Tree Ruiz MD PhD [address] [facility] [address] [place] [address] CALL BACK Social History Tobacco Use Types Packs/Day Years Used Date Smoking Tobacco: Former Smokeless Tobacco: Never Alcohol Use Standard Drinks/Week Comments No 7 (1 standard drink = 0.6 oz pur e alcohol) Sex and Gender Information Value Date Recorded Sex Assigned at Not on file Legal Sex Male 3:18 AM FORMING YARDAGE CONTROL OPERATOR Gender Identity Male 11/05/2020 12:05 PM FORMING YARDAGE CONTROL OPERATOR Sexual Orientation Not on file documented as of this encounter Plan of Treatment Upcoming Encounters Date Type Department Care Team (Latest Contact Info) Description 02/21/2025 10:50 AM CDT Hospital Encounter [address] [place] [address] Neftaly Poritllo MD [address] [id number] Chest pain, unspecified type; Coronary artery disease of [place] artery of [place] heart with stable angina pectoris; Dizziness 02/21/2025 10:50 AM CDT - 02/21/2025 11:55 AM CDT Surgery [address] [place] [address] Neftaly Portillo MD [address] [id number] LEFT HEART CATHETERIZATION WITH CORONARY ANGIOGRAPHY AND WITH OR WITHOUT LEFT VENTRICULOGRAM [address] documented as of this encounter Visit Diagnoses Not on filedocumented in this encounter Care Teams Decorator Consultant Relationship Specialty Start Date End Date Cheo Potts MD [address] [place] [address] PCP - General 01/03/17 Neftaly Portillo MD [address] [address] Consulting Physician Cardiology 11/15/18 Tree Ruiz MD PhD [address] [place] [address] Referring Physician Cardiology 12/10/20 11/20/23 Katharina Mac NP [address] [facility] [address] [place] [address] Referring Physician Cardiology 12/10/20 11/20/23 Qi Norris MD 2 [facility] 305 [place] [address] Referring Physician Gastroenterology 05/10/23 Yuly Nieves, RN [address] [facility] [address] [place] [address] SHOP Outpatient Supervisor Pumping 09/22/23 10/18/23 Katharina Mac, DEBORA [address] [facility] 5[address] [place] [address] Nurse Practitioner Cardiology 11/21/23 Tree Ruiz MD PhD 45[address] [facility] [address] [place] [address] Consulting Physician Cardiology 11/21/23 [place] [address] [facility] 100 [place] [address] Nurse Practitioner Chemical Research Engineer 07/18/24 11/12/24 [place] [address] [facility] 100 [place] [address] Nurse Practitioner Chemical Research Engineer 09/18/24 [place] [address] [facility] [address] [place] [address] Consulting Physician Pain Management 11/13/24 documented as of this encounter
--- OUTSIDE RECORDS SUMMARY | 2025-02-18 20:40 | XMS_ITS | Clinical Summary ---
Author Organization [facility] Address [address] [place] [address] Care Team Providers Care Stitch Cleaner Name Role Phone Cheo Potts MD Primary Care Provider Neftaly Portillo MD Unavailable [phone] Qi Norris MD Unavailable [phone] Katharina Mac PROFESSOR OF ANTHROPOLOGY Unavailable [phone] Tree Ruiz MD PhD Unavailable [phone] Oanh Trevizo PROFESSOR OF ANTHROPOLOGY Unavailable Torin Almodovar MD Unavailable Allergies Active Allergy Reactions Criticality Noted Date Comments Celecoxib Other (See comments) Low Altered depth perception Ciprofloxacin Muscle pain,Other (S ee comments) Medium 12/06/2017 Muscle weakness FEELS BAD Latex Rash,Itching Medium 04/11/2017 Medications calcium carbonate-vitamin D3 1,500 mg (600mg elemental) -800 unit per tabletIndications :Hypocalcemia Prevention,Preven tion of Vitamin D Deficiency 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 mouth skiagrapher 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 Active coenzyme Q10 200 mg capsuleIndication s:supplement Take 1 capsule (200 mg total) by mouth nightly Active magnesium oxide 200 mg tablet,chewableIn dications:supplem ent Take 200 mg by mouth skiagrapher 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 Active polyethylene glycol (MIRALAX) 17 gram packetIndications :constipation Take 1 packet (17 g total) by mouth nightly Active multivitamin no.44-vit D3-K 1,000-800 unit-mcg capsuleIndication s:Mineral Deficiency Prevention,Vitami n Deficiency Prevention 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 mouth skiagrapher 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 Active azelastine (ASTELIN) 137 mcg [...] 1 tablet (5 mg total) by mouth skiagrapher 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 2 Active sucralfate (CARAFATE) 1 [...] GI bleeding 02/08/2023 Lumbar facet arthropathy 09/20/2022 retirement current use of anticoagulant 3 Lumbar radiculopathy 09/13/2022 Chronic midline low back pain without sciatica 0 09/13/2022 DDD (degenerative disc disease), lumbar 09/13/19 23 Sacroiliitis 09/13/2022 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 Chronic idiopathic constipation 07/16/2021 Hepatomegaly 07/16/2021 History of alcohol abuse 07/16/2021 PAD (peripheral artery disease) 02/26/2019 Coronary artery disease invo lving pauma coronary 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 Cardiology [address] [facility] Medical Office Building [address] [place] [address] Mae Villanueva RMA CBC with auto differential, Basic metabolic panel 01/30/[address] [facility] 6th [place] [address] [place] [address] Ewa Nath NP Lumbar spondylosis (Primary Dx); Lumbar stenosis with neurogenic claudication 01/29/[address] [facility] [address] [place] [address] [place] [address] Ewa Nath NP 01/17/2025 2:30 PM CDT Office Visit [facility] Orthopaedic Surgery [address] [facility] 2nd Floor [address] [place] [address] Bell Smith PA Primary osteoarthritis of both knees (Primary Dx) 01/17/[address] [facility] Neuro Sleep [address] [facility] 6th Floor [address] [place] [address] Rin Knapp RN DME order 01/16/[address] [facility] Stroke [address] [place] [address] Mauro Zamora MD CORNEL (obstructive sleep apnea) (Primary Dx) 01/16/[address] [facility] Neuro Sleep [address] [facility] 6th Floor [address] [place] [address] Rin Knapp RN 01/08/2025 Patient Message [facility] [id number] [place] [address] [id number] Torin Almodovar MD PT 01/07/2025 12:45 PM CDT - 01/07/2025 11:59 PM CDT Hospital Encounter [facility] [id number] [place] [address] [phone] Oanh Trevizo NP Spinal stenosis of lumbar region without neurogenic claudication (Primary Dx); Lumbar radiculopathy; Primary hypertension Discharge Disposition: Discharge to home or self care 01/06/[address] [facility] 8th [place] [address] [place] [address] Neftaly Portillo MD Dizziness; Chest Pain; Procedure (LHC) 01/01/[address] [facility] 8th [place] [address] [place] [address] Neftaly Portillo MD Medical Records Request 12/31/2024 Telephone [facility] [address] [place] [address] Earl Michelle Med Management (Tramadol after seizure) 12/18/2024 9:45 AM CDT Office Visit [facility] Cardiothoracic Surgery [address] [place] [address] [facility] 8th Floor [address] Room [address] [place] [address] Dorothea Dick MD Aneurysm of ascending aorta without rupture (Primary Dx) 12/18/[address] [facility] Cardiothoracic Surgery [address] [place] [address] [facility] 8th Floor [address] Room [address] [address] Dorothea Dick MD Aneurysm of ascending aorta without rupture (Primary Dx) 12/06/2024 Results Follow-Up [facility] Cardiology [address] [facility] Medical Office Building [address] [place] [address] Mae Villanueva RMA Basic metabolic panel 12/03/2024 Results Follow-Up [facility] Cardiology [address] [facility] [address] [place] [address] Zainab Francis NP Transthoracic Echo (TTE) Complete W Doppler/CF 11/25/2024 1:00 PM CDT Office Visit [facility] Orthopaedic Surgery [address] [facility] Medical Office Building [address] [place] [address] Bell Smith PA Primary osteoarthritis of both knees (Primary Dx) 11/25/2024 11:30 AM CDT Ancillary Procedure [facility] [address] [facility] [address] [place] [address] Left ventricular dysfunction 11/25/2024 Results Follow-Up [facility] Cardiology [address] [facility] [address] [place] [address] Zainab Francis NP Basic metabolic panel, CBC with auto differential 11/19/2024 1:00 PM CDT Office Visit [facility] Cardiology [address] [facility] [address] [place] [address] Zainab Francis NP Palpitations (Primary Dx); Left ventricular dysfunction; Aneurysm of ascending aorta without rupture; Paroxysmal atrial fibrillation (HCC); Coronary artery disease involving pauma coronary artery of pauma heart without angina pectoris; Cardiomyopathy, unspecified type (HCC); Primary hypertension; Mixed hyperlipidemia; History of alcohol abuse; Obstructive sleep apnea syndrome from Last 3 Months Immunizations Immunization Administration [...] drink = 0.6 oz pur e alcohol) [facility] Utilities Answer Date Recorded In the past 12 months has th e electric, gas, oil, or water [employer] threatened to shut off services in your [...] any clubs o r organizations such as taoist groups, unions, fraternal or athletic groups, or [...] on file Legal Sex Male 3:18 AM CAMPAIGN MANAGER Gender Identity Male 11/05/2020 12:05 PM CAMPAIGN MANAGER Sexual Orientation Not on file Obstetrics [...] Description 02/21/2025 10:50 AM CDT Hospital Encounter [address] [place] [address] Neftaly Portillo MD [address] [facility] [address] [place] [address] Chest pain, unspecified type; Coronary artery disease of pauma artery of pauma heart with stable angina pectoris; Dizziness 02/21/2025 10:50 AM CDT - 02/21/2025 11:55 AM CDT Surgery [address] [place] [phone] Neftaly Portillo MD [address] [facility] [address] [place] [address] LEFT HEART CATHETERIZATION WITH CORONARY ANGIOGRAPHY AND WITH OR WITHOUT LEFT VENTRICULOGRAM [id number] Health Maintenance Due Date Last Done Comments [...] 05/18/2021, 02/18/2019 Medical Devices Implanted Type Area Sales And Merchandising Associate Device Identifier Shelf Expiration Date Model / Serial / Lot Medtronic Cardiac Rhythm Mgmt 5076-52 Capsurefix Novus 6.2fr 2mm 52cm Bipolar Screw In Implantable Latex Free - [id number] - [id number] Implanted:Qty: 1 on 04/24/2018 by Osmany Pina MD at [facility] Pacemaker Left: Heart Medtronic Cardiac Rhythm Mgmt [id number] 03/08/2020 5076-52 / [id number] 16 / Medtronic Cardiac Rhythm Mgmt 5076-45 Capsurefix Novus Od6.2 Fr; Odsec2 Mm L45 Cm Bipolar; Screw In; Im - [id number] - [id number] Implanted:Qty: 1 on 04/24/2018 by Osmany Pina MD at [facility] Pacemaker Left: Heart Medtronic Cardiac Rhythm Mgmt [id number] 02/13/2020 5076-45 / [id number] 25 / Medtronic Inc [id number] Attain Performa Starfix 5.3fr 5.1fr 88cm Quadripolar Is4-Llll Latex Free - [id number] - [id number] Implanted:Qty: 1 on 04/24/2018 by Osmany Pina MD at [facility] Pacemaker Left: Heart Medtronic Inc 02/15/2020 [id number] / [id number] / Pacemaker Cardiac 11mm 19.9cu Cm 46.5x59mm Rain Surescan - [id number] - [id number] Implanted:Qty: 1 on 04/24/2018 by Osmany Pina MD at [facility] Pacemaker Left: Chest Medtronic Inc 06/17/2019 [id number] / [id number] / [employer] Device Clsr Perclose Prostyle Sut-Mediatd Closure-Repair Sys 57341-00 - [id number] - [id number] Implanted:Qty: 1 on 09/20/2023 by Antoine Nelson MD at [facility] Vascular Closure Device N/A: Femoral Vein [employer] 05/04/2025 62525-88 / [id number] / [id number] Procedures Procedure Name Priority Date/Time Associated Diagnosis Comments BASIC METABOLIC PANEL Routine 02/13/2025 11:56 AM CDT Dizziness Chest pain, unspecified type Primary hypertension Coronary artery disease involving pauma coronary artery of pauma heart without angina pectoris CBC WITH AUTO DIFFERENTIAL Routine 02/13/2025 11:56 AM CDT Dizziness Chest pain, unspecified type Primary hypertension Coronary artery disease involving pauma coronary artery of pauma heart without angina pectoris IA ARTHROCENTESIS ASPIR&/INJ MAJOR JT/BURSA W/O US Routine 01/17/2025 2:30 PM CDT Primary osteoarthritis of both knees BASIC METABOLIC PANEL Routine 12/05/2024 12:13 PM CDT Coronary artery disease involving pauma coronary artery of pauma heart without angina pectoris Palpitations IA ARTHROCENTESIS ASPIR&/INJ MAJOR JT/BURSA W/O US Routine 11/25/2024 1:00 PM CDT Primary osteoarthritis of both knees TRANSTHORACIC ECHO (TTE) COMPLETE W DOPPLER/CF WO CONTRAST Routine 11/25/2024 12:41 PM CDT Left ventricular dysfunction CBC WITH AUTO DIFFERENTIAL Routine 11/22/2024 12:30 PM CDT Coronary artery disease involving pauma coronary artery of pauma heart without angina pectoris BASIC METABOLIC PANEL Routine 11/22/2024 12:30 PM CDT Coronary artery disease involving pauma coronary artery of pauma heart without angina pectoris ECG 12-LEAD Routine 11/19/2024 1:48 PM CDT Palpitations CTA ABDOMINAL AORTA AND BILATERAL ILIOFEMORAL RUNOFF Schedule Routine, Read Routine (OP Routine) 02/18/2019 3:29 PM CDT Abnormal ankle brachial index (ODALIS) Pain in both lower extremities from Last 3 Months or Most Recently Relevant to Health Maintenance Results * CBC with auto differential (02/13/2025 11:56 AM CDT) Pathologist [facility] WBC 5.3 3.8 - 10.8 Thousand/u L [facility] RBC, POC 4.55 4.20 - 5.80 Million/uL [facility] Hgb 14.4 13.2 - 17.1 g/dL [facility] Hct 43.9 38.5 - 50.0 % [facility] MCV 96.5 80.0 - 100.[address] [facility] MCH 31.6 27.0 - 33.0 pg [facility] MCHC 32.8 32.0 - 36.0 g/dL [facility] Comment: For adults, a slight decrease in the calculated MCHC value (in the range of 30 to 32 g/dL) is most likely not clinically significant; however, it should be interpreted with caution in correlation with other red cell parameters and the patient's clinical condition. Rdw 13.3 11.0 - 15.0 % [facility] Platelets 254 140 - 400 Thousand/u L [facility] MPV 9.1 7.5 - 12.5 fL [facility] Neutrophils, abs 2,544 1,500 - 7,800 cells/uL [facility] Lymphocytes, abs 2,104 850 - 3,900 cells/uL [facility] Monocyte abs 541 200 - 950 cells/uL [facility] Eosinophils, abs 69 15 - 500 cells/uL [facility] Basophils, abs 42 0 - 200 cells/uL [facility] Neutrophils 48 % [facility] Lymphocyte pct 39.7 % [facility] Monocytes 10.2 % [facility] Eosinophils 1.3 % [facility] Basophils 0.8 % [facility] Blood 02/13/2025 11:5 6 AM CDT 02/13/2025 11:57 AM CDT Narrative [facility] - 02/14/2025 3:06 AM CDT FASTING:NO FASTING: NO us Neftaly Portillo MD LAB BLOOD ORDERABLES Final Res ult [facility] [address] [place] [address] * (ABNORMAL) Basic metabolic panel (02/13/2025 11:56 AM CDT) [facility] Glucose 93 65 - 99 mg/dL [facility] Comment: Fasting reference interval BUN 13 7 - 25 mg/dL [facility] Creatinine 0.64(L) 0.70 - 1.22 mg/dL [facility] eGFR 95 > OR = 60 mL/min/1.7 3m2 [facility] BUN/creat ratio 20 6 - 22 (calc) [facility] Sodium 137 135 - 146 mmol/L [facility] stephan[facility] Smith Potassium, pl 4.1 3.5 - 5.3 mmol/L [facility] Smith Chloride 100 98 - 110 mmol/L [facility] stephan[facility] Smith CO2 32 20 - 32 mmol/L [facility] Smith Calcium 9.0 8.6 - 10.3 mg/dL [facility] Blood 02/13/2025 11:5 6 AM CDT 02/13/2025 11:57 AM CDT Narrative [facility] - 02/14/2025 3:06 AM CDT FASTING:NO FASTING: NO us Neftaly Portillo MD LAB BLOOD ORDERABLES Final Res ult [facility] [address] [place] [address] * [place] ARTHROCENTESIS ASPIR&/INJ MAJOR JT/BURSA W/O [...] CDT) Glucose 63(L) 65 - 99 mg/dL [facility] Comment: Fasting reference interval BUN 15 7 - 25 mg/dL [facility] Smith Creatinine 0.73 0.70 - 1.22 mg/dL [facility] eGFR 91 > OR = 60 mL/min/1.7 3m2 [facility] BUN/creat ratio SEE NOTE: 6 - 22 (calc) [facility] Comment: Not Reported: BUN and Creatinine are within reference range. Sodium 131(L) 135 - 146 mmol/L [facility] Smith Potassium, pl 4.3 3.5 - 5.3 mmol/L [facility] Smith Chloride 96(L) 98 - 110 mmol/L [facility] CO2 29 20 - 32 mmol/L [facility] Calcium 9.1 8.6 - 10.3 mg/dL [facility] Blood 12/05/2024 12:1 3 PM CDT 12/05/2024 12:13 PM CDT Zainab Francis PROFESSOR OF ANTHROPOLOGY LAB BLOOD ORDERABLES Final Re sult [facility] [address] [place] [address] * IA ARTHROCENTESIS ASPIR&/INJ MAJOR JT/BURSA W/O [...] PM CDT Narrative 12/02/2024 11:23 PM CDT [facility] Cardiac Diagnostic Lab [address] , [address] [place] [address] Transthoracic Echocardiographic Report Patient Name: DONALD FATIMA MI : 1940 (84y 7m) Gender: M Study Date: 11/25/2024 12:03:57 PM Ht(Inch): 69 Wt(Lb): 182.1 BSA: 2.01 Human Resources Executive: Francisca Sánchez RDCS Location: [facility] Heart Rate: 74 BMI: 26.89 [...] LA Length 4C 4.17 cm AI Decel [place] 1.91 m/s2 LA Length 2C 4.69 cm [...] Procedure Note Neftaly Portillo MD - 12/02/2024 [facility] Cardiac Diagnostic Lab [address] [place] [address] Transthoracic Echocardiographic Report Patient Name: DONALD FATIMA MI : 1940 (84y 7m) Gender: M Study Date: 11/25/2024 12:03:57 PM Ht(Inch): 69 Wt(Lb): 182.1 BSA: 2.01 Human Resources Executive: Francisca Sánchez RDCS Location: [facility] Heart Rate: 74 BMI: 26.89BP: [...] [ -25.0 - -18.0 ] AI Decel [id number] sec LA Length 4C 4.17 cm AI Decel Slope1.91 m/s2 LA Length 2C 4.69 cm AI NVF727.96 msec LA Volume BP 45.23 ml MV [...] [ 3.10 - 3.70 ] MV Decel Wwpn644.67 msec [ 104.00 - 258.00 ] Ao [...] WBC 5.1 3.8 - 10.8 Thousand/u L [facility] RBC, POC 4.49 4.20 - 5.80 Million/uL [facility] Hgb 14.2 13.2 - 17.1 g/dL [facility] Hct 42.4 38.5 - 50.0 % [facility] MCV 94.4 80.0 - 100.0 fL [facility] MCH 31.6 27.0 - 33.0 pg [facility] MCHC 33.5 32.0 - 36.0 g/dL [facility] Comment: For adults, a slight decrease in the calculated MCHC value (in the range of 30 to 32 g/dL) is most likely not clinically significant; however, it should be interpreted with caution in correlation with other red cell parameters and the patient's clinical condition. Rdw 12.1 11.0 - 15.0 % [facility] Platelets 279 140 - 400 Thousand/u L [facility] MPV 8.9 7.5 - 12.5 fL [facility] Neutrophils, abs 2,392 1,500 - 7,800 cells/uL [facility] Lymphocytes, abs 2,035 850 - 3,900 cells/uL [facility] Monocyte abs 515 200 - 950 cells/uL [facility] Eosinophils, abs 97 15 - 500 cells/uL [facility] Basophils, abs 61 0 - 200 cells/uL [facility] Neutrophils 46.9 % [facility] Lymphocyte pct 39.9 % [facility] Monocytes 10.1 % [facility] Eosinophils 1.9 % [facility] Basophils 1.2 % [facility] Blood 11/22/2024 12:3 0 PM CDT 11/22/2024 12:30 PM CDT Zainab Francis PROFESSOR OF ANTHROPOLOGY LAB BLOOD ORDERABLES Final Re sult Performing Organization Address [facility] de Phone Number [facility] [address] [place] [address] * (ABNORMAL) Basic metabolic panel (11/22/2024 12:30 PM CDT) [facility] Glucose 93 65 - 99 mg/dL [facility] Comment: Fasting reference interval BUN 11 7 - 25 mg/dL [facility] Creatinine 0.71 0.70 - 1.22 mg/dL [facility] eGFR 92 > OR = 60 mL/min/1.7 3m2 [facility] BUN/creat ratio SEE NOTE: - (calc) [facility] Comment: Not Reported: BUN and Creatinine are within reference range. Sodium 130(L) 135 - 146 mmol/L [facility] Potassium, pl 4.4 3.5 - 5.3 mmol/L [facility] Chloride 95(L) 98 - 110 mmol/L [facility] CO2 29 20 - 32 mmol/L [facility] Calcium 8.9 8.6 - 10.3 mg/dL [facility] Blood 11/22/2024 12:3 0 PM CDT 11/22/2024 12:30 PM CDT Zainab Francis PROFESSOR OF ANTHROPOLOGY LAB BLOOD ORDERABLES Final Re sult Performing Organization Address [facility] de Phone Number [facility] [address] [place] [address] * ECG 12 lead (11/19/2024 1:48 PM CDT) Zainab Francis PROFESSOR OF ANTHROPOLOGY ECG ORDERABLES Final Result * CTA Abdominal [...] SFAs, or popliteal arteries. Electronically signed by: Nick Diaz 02/18/2019 4:06 PM CDT EXAMINATION: CT ANGIOGRAPHY [...] MEDICARE BLUE CROSS MEDICARE SUPPLEMENT MEDICARE MEDICARE [facility] MEDICARE [facility] MEDICARE SUPPLEMENT MEDICARE [facility] MEDICARE SUPPLEMENT Advance Directives For more information, please contact: [phone] * Full Code (Latest Code Status on File) Date Activated Date Inactivated Comments 09/20/2023 6:27 PM 09/21/2023 7:45 PM * Full Code Date Activated Date Inactivated Comments 04/24/2018 5:50 PM 04/27/2018 2:46 PM * Full Code Date Activated Date Inactivated Comments 03/24/2018 11:24 PM 03/25/2018 4:51 PM Care Teams Stitch Cleaner Relationship Specialty Start Date End Date Cheo Potts MD [address] [facility] [facility] [address] [place] [address] PCP - General 01/03/17 Neftaly Portillo MD [address] [facility] [address] [place] [address] Consulting Physician Cardiology 11/15/18 Qi Norris MD [address] [address] Referring Physician Gastroenterology 05/10/23 Katharina Mac NP [address] [address] Nurse Practitioner Cardiology 11/21/23 Tree Ruiz MD PhD [address] [address] Consulting Physician Cardiology 11/21/23 [place] [address] [address] Nurse Practitioner Brazer Resistance 09/18/24 [place] [address] [place] [address] [address] [place] [address] Consulting Physician Pain Management 11/13/24
[2025-02-18 20:41] VITALS: BP 158/100; PULSE 80; RESP 18; TEMP 37.1; O2SAT 98
--- NOTE | 2025-02-18 20:50 | ED_ITS ---
HPI - Animal Bite General Chief Complaint: Animal Bite Stated Complaint: spider bite left side , 36 hours ago Time Seen by Provider: 02/18/25 20:40 History of Present Illness HPI narrative: 84-year-old male presenting with spider/insect bites is left abdominal wall that occurred about 36 hours ago. Patient states that he does not remember exactly what bit him but he started getting a blister to his left side there that he accidentally popped. No some drainage that appears serosanguineous and some redness around it. No pain with palpation but he describes itchy sensation to it. He is alert to ciprofloxacin but no other antibiotics. Patient denies any other symptoms at this time and otherwise was in his normal state of health. Denies any trauma or injury. Related Data Home Medications ?Medication ?Instructions ?Recorded ?Confirmed ?Last Taken ?Type coenzyme Q10 200 mg capsule (Co 200 mg PO DAILY 07/09/19 02/13/25 11/11/20 History Q-10) magnesium 200 mg tablet 200 mg PO DAILY 07/09/19 02/13/25 11/11/20 History sotalol 120 mg tablet 120 mg PO Q12H 03/03/20 02/13/25 11/12/20 08:30 History calcium carbonate (Calcium 600) 600 mg PO DAILY 07/29/20 02/13/25 11/11/20 History polyethylene glycol 3350 17 17 g PO DAILY 10/12/22 02/13/25 Unknown History gram/dose oral powder finasteride 5 mg tablet 5 mg PO DAILY 01/11/23 02/13/25 Unknown History prochlorperazine maleate 10 mg 10 mg PO DAILY 01/11/23 02/13/25 Unknown History tablet dapagliflozin propanediol 5 mg 5 mg PO DAILY 01/03/24 02/13/25 Unknown History tablet (Farxiga) atorvastatin 40 mg tablet 20 mg PO DAILY 09/12/24 02/13/25 Unknown History gabapentin 100 mg capsule 100 mg PO TID 12/31/24 02/13/25 Unknown History sacubitril 24 mg-valsartan 26 mg 1 tablet PO .COMPLEX 12/31/24 02/13/25 Unknown History tablet (Entresto) spironolactone 25 mg tablet 12.5 mg PO DAILY 12/31/24 02/13/25 Unknown History tramadol 50 mg tablet 50 mg PO TID PRN 12/31/24 02/13/25 Unknown History Allergies Allergy/AdvReac Type Severity Reaction Status Date / Time celecoxib Allergy Intermediate Gastrointestinal Verified 02/18/25 20:46 Upset ciprofloxacin Allergy Intermediate Muscle pain Verified 02/18/25 20:46 latex Allergy Intermediate Rash Verified 02/18/25 20:46 NSAIDS (Non-Steroidal Allergy Intermediate Gastrointestinal Verified 02/18/25 20:46 Anti-Inflamma Upset Review of Systems Review of Systems: As reviewed above in HPI [facility] Past Medical History Medical History Paroxysmal A-fib Hypertensive heart disease with heart failure CORNEL (obstructive sleep apnea) GERD (gastroesophageal reflux disease) Epigastric pain History of gastroesophageal reflux (GERD) History of stomach ulcers Depression Degenerative arthritis of knee, bilateral Vascular disease Hypertension Heart disease Coronary artery disease Arrhythmia Anemia Cholecystostomy care Hernia Chronic insomnia Surgical History Surgical History History of permanent cardiac pacemaker placement History of cholecystectomy History of hernia repair Family History Family History Mother Hypertension Patient's mother is in good health Sibling Hypertension Father Family history of heart disease in male family member before age 55 Other Cerebrovascular accident Diabetes mellitus Family history of arthritis Family history of cardiovascular disease Family history of kidney disease Social History Social History Social History: Smoking packs per day: 0 Smoking cigarettes per day: 0.0 Years smoked: 11 Smoking pack-years: 0.00 Smoking status: Former smoker Tobacco type: cigarettes Second hand tobacco smoke exposure: No Smoking end date: 09/04/71 Alcohol intake: former Drinks per week: 7 Alcohol use details: WINE Substance use: former Substance use type: marijuana Other substance usage details: GUMMIES OCC. FOR KNEE PAIN CBD. Pt stopped using them 2 months ago. Lack of Transportation: No Lack of Food: Never True Current Housing: I Have Housing Concerned About Future Housing: No Difficulty Paying Gas/Electric Bills: No Difficulty Paying for Meds: No Currently Unemployed: No Education: Master's Degree or Higher Difficulty w/ Childcare or Family Care: No Living arrangements: alone Occupation/Education: retired Gender identity (if verbalized by the patient): Male Sexual Orientation (if Verbalized by the Patient): Straight or Heterosexual Spiritual care concerns: No Exam Narrative: GENERAL: [Well-appearing, well-nourished, and in no acute distress.] HEAD: [Normocephalic, atraumatic.] EYES: [PERRLA and EOMI.] ENT: Nares clear, no rhinorrhea or epistaxis. Mucous membranes moist. NECK: Supple. CHEST: Nonlabored respirations ABDOMEN: [Soft, nondistended], [nontender], [No rigidity or guarding] EXTREMITIES: Normal range of motion. [No edema.] SKIN: Focal area of some erythema and mild serosanguineous drainage over what appears to be a punctate wound from suspected insect bite to his left lateral flank. No tenderness to palpation, no purulent drainage, palpable fluctuance or any abscess formation. NEURO: [No focal deficits]. Alert and oriented [x3.] PSYCH: [Normal mood and affect.] Course Vital Signs Vital signs: Vital Signs Temperature 37.1 C 02/18/25 20:41 Pulse Rate 80 02/18/25 20:41 Respiratory Rate 18 02/18/25 20:41 Blood Pressure 158/100 H 02/18/25 20:41 Pulse Oximetry 98 02/18/25 20:41 Oxygen Delivery Room Air 02/18/25 20:41 Temperature 37.1 C 02/18/25 20:41 Pulse Rate 87 02/18/25 21:16 Respiratory Rate 19 02/18/25 21:16 Blood Pressure 144/99 H 02/18/25 21:16 Pulse Oximetry 100 02/18/25 21:16 Oxygen Delivery Room Air 02/18/25 20:41 MDM - Animal Bite MDM Narrative Medical decision making narrative: 84-year-old male presenting with suspected insect bite to his left flank approximately 1 and half days ago. Describes as itchy but otherwise has no complaints or symptoms. Examination shows focal area of some erythema and mild serosanguineous drainage over what appears to be a punctate wound from suspected insect bite to his left lateral flank. No tenderness to palpation, no purulent drainage, palpable fluctuance or any abscess formation. Suspect early infection versus normal inflammatory response insect bites/potential staph/strep infection gavi to impetigo. Patient given topical mupirocin and prescription with instructions on wound care. Patient is safe for discharge and will follow up with his regular doctor. Medical Records Attestation: I reviewed the patient's medical records. Discharge Plan Discharge Clinical Impression: Spider bite wound Patient Disposition: Home Condition: Stable Instructions: Antibiotic Form, Insect Bite or Sting (ED) Additional Instructions: You have what looks like a spider or insect bite to the left-sided your abdominal wall which appears to be having early signs of an infection. We will prescribe you an antibiotic for topical application to this area. Apply this 4 times daily for the next 5 days. If he started noticing worsening rash, new symptoms or any other concerns please call your primary care provider for follow-up appointment or return to the emergency department. Patient Language: Venezuelan Prescriptions: New mupirocin [Centany] 2 % ointment 1 applic topical QID 5 Days Qty: 22 0RF No Action prochlorperazine maleate 10 mg tablet 10 mg PO DAILY finasteride 5 mg tablet 5 mg PO DAILY atorvastatin 40 mg tablet 20 mg PO DAILY coenzyme Q10 [Co Q-10] 200 mg capsule 200 mg PO DAILY magnesium 200 mg tablet 200 mg PO DAILY sotalol 120 mg tablet 120 mg PO Q12H dapagliflozin propanediol [Farxiga] 5 mg tablet 5 mg PO DAILY polyethylene glycol 3350 17 gram/dose powder 17 g PO DAILY tramadol 50 mg tablet 50 mg PO TID PRN Patient Comments: as per pain management gabapentin 100 mg capsule 100 mg PO TID Patient Comments: as per pain management spironolactone 25 mg tablet 12.5 mg PO DAILY Patient Comments: as per cardio Entresto 24-26 mg tablet 1 tablet PO .COMPLEX Patient Comments: Take 1 tab AM and 1/2 tab PM Rx Instructions: 1 tablet orally; calcium carbonate [Calcium 600] 600 mg calcium (1,500 mg) Tablet 600 mg PO DAILY azelastine 137 mcg (0.1 %) spray,non-aerosol See Rx Instructions .ROUTE .COMPLEX Qty: 30 3RF Dose Instruction: USE 1 SPRAY IN EACH NOSTRIL EVERY 12 HOURS Rx Instructions: USE 1 SPRAY IN EACH NOSTRIL EVERY 12 HOURS fluocinolone acetonide oil 0.01 % drops See Rx Instructions EACH EAR .COMPLEX Qty: 20 3RF Rx Instructions: Use as previously directed. Typically several drops, each ear, max two times per day. buspirone 5 mg tablet 5 mg PO BID Qty: 180 1RF Follow-up/Referrals: Cheo Potts MD [Primary Care Provider] - Time of Disposition: 20:50
[2025-02-18] MEDS: MUPIROCIN 2% OINT 22 GM TUBE 1 APPLIC TOPICAL (20:54)
--- OUTSIDE RECORDS SUMMARY | 2025-02-18 21:05 | XMS_ITS | Encounter Summary ---
Author Organization [facility] Address [address] [facility] [facility] [place] [address] Phone Care Team Providers Care Weight Loss Centre Manager Name Role Phone Cheo Potts MD Primary Care Provider Marques Barksdale DO Unavailable [phone] Barbara Warner APRN, PILER Unavailable Qi Norris MD Unavailable [phone] Reason for Visit * Reason Comments Medication Refill Encounter Details Date Type Department Care Team (Late st Contact Info) Description 11/20/2022 Refill [facility] - Gastroenterology [facility] [address] [place] [id number] Renetta Jacob Duyen, PAC [address] [place] [address] Medication Refill Social History Tobacco Use Types [...] present documented in this encounter Care Teams Weight Loss Centre Manager Relationship Specialty Start Date End Date Cheo Potts MD [address] [facility] [address] [place] [address] PCP - General Family Medicine 11/09/15 Marques Barksdale DO [address] [place] [address] [address] [place] [address] Gastroenterology 11/12/15 Barbara Warner APRN, PILER [address] [place] [address] Nurse Practitioner Advanced Practice Nurse 10/24/22 Qi Norris MD [address] [place] [address] Consulting Physician Gastroenterology 05/12/22 documented as of this encounter
--- OUTSIDE RECORDS SUMMARY | 2025-02-18 21:05 | XMS_ITS | Encounter Summary ---
Author Organization [facility] Address [address] [place] [address] Phone Care Team Providers Care Horse Trader Name Role Phone Cheo Potts MD Primary Care Provider Neftaly Portillo MD Unavailable [phone] Tree Ruiz MD PhD Unavailable [phone] Katharina Mac RELATIONSHIP BANKER Unavailable Qi Norris MD Unavailable [phone] Yuly Nieves RN Unavailable [phone] Katharina Mac RELATIONSHIP BANKER Unavailable Tree Ruiz MD PhD Unavailable [phone] Oanh Trevizo RELATIONSHIP BANKER Unavailable Oanh Trevizo RELATIONSHIP BANKER Unavailable Torin Almodovar MD Unavailable Encounter Details Date Type Department Care Team (Latest Contact Info) Description 01/25/2023 Orders Only [facility] Berenice Olivares, RN [address] 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 Gender Identity Male 11/05/2020 12:05 PM DIRECTOR OF INSTITUTIONAL RESEARCH Sexual Orientation Not on file documented as of this encounter Plan of Treatment Upcoming Encounters Date Type Department Care Team (Latest Contact Info) Description 02/21/2025 10:50 AM CDT Hospital Encounter [address] [place] [address] Neftaly Portillo MD [address] [address] Chest pain, unspecified type; Coronary artery disease of [place] artery of [place] heart with stable angina pectoris; Dizziness 02/21/2025 10:50 AM CDT - 02/21/2025 11:55 AM CDT Surgery [address] [place] [address] Neftaly Portillo MD [address] [id number] LEFT HEART CATHETERIZATION WITH CORONARY ANGIOGRAPHY AND WITH OR WITHOUT LEFT VENTRICULOGRAM [id number] documented as of this encounter Procedures Procedure Name Priority Date/Time Associated Diagnosis Comments SCAN - LABS 01/25/2023 documented in this encounter Results * SCAN - LABS (01/25/2023) Berenice Olivares RN Final Result documented in this encounter Visit Diagnoses Not on filedocumented in this encounter Care Teams Horse Trader Relationship Specialty Start Date End Date Cheo Potts MD [address] [place] [address] PCP - General 01/03/17 Neftaly Portillo MD [address] [place] [address] Consulting Physician Cardiology 11/15/18 Tree Ruiz MD PhD [address] [place] [address] Referring Physician Cardiology 12/10/20 11/20/23 Katharina Mac, DEBORA [address] [place] [address] Referring Physician Cardiology 12/10/20 11/20/23 Qi Norris MD [address] [address] Referring Physician Gastroenterology 05/10/23 Yuly Nieves, CLARISSA [address] [place] [address] SHOP Outpatient Debt Counselor 09/22/23 10/18/23 Katharina Mac, DEBORA [address] [place] [address] Nurse Practitioner Cardiology 11/21/23 Tree Ruiz MD PhD [address] [place] [address] Consulting Physician Cardiology 11/21/23 Oanh Trevizo, DEBORA [address] [facility] [address] [place] [address] Nurse Practitioner Cell Repairer 07/18/24 11/12/24 Oanh Trevizo, DEBORA [address] [facility] [address] [place] [address] Nurse Practitioner Cell Repairer 09/18/24 [place] [address] [facility] [address] [address] Consulting Physician Pain Management 11/13/24 documented as of this encounter
--- OUTSIDE RECORDS SUMMARY | 2025-02-18 21:05 | XMS_ITS | Encounter Summary ---
Author Organization [facility] Address [address] [place] [address] Phone Care Team Providers Care Bun Panner Name Role Phone Cheo Potts MD Primary Care Provider Marques Barksdale DO Unavailable [phone] Barbara Warner APRN, PHLEBOTOMY TECHNICIAN Unavailable Qi Norris MD Unavailable [phone] Reason for Visit * Reason Comments Medication Refill Encounter Details Date Type Department Care Team (Late st Contact Info) Description 08/23/2024 Refill [facility] - Gastroenterology [facility] [address] [place] [id number] Barbara Warner APRN, PHLEBOTOMY TECHNICIAN [address] [place] [address] Medication Refill Social History Tobacco Use Types [...] Oanh Recinos RN - 08/23/2024 1:57 PM TRAFFIC WORKER Medication refilled and signed per [facility] chronic medication standing order for pediatric and adult patients. FIC WORKER documented in this encounter Plan of Treatment Not on file documented as of this encounter Visit Diagnoses Diagnosis Gastroesophageal reflux disease, unspecified whether esophagitis present documented in this encounter Care Teams Bun Panner Relationship Specialty Start Date End Date Cheo Potts MD [address] [place] [address] [address] [place] [address] PCP - General Family Medicine 11/09/15 Marques Barksdale DO [address] [place] [address] [address] [place] [address] Gastroenterology 11/12/15 Barbara Warner APRN, PHLEBOTOMY TECHNICIAN [address] [place] [address] Nurse Practitioner Advanced Practice Nurse 10/24/22 Qi Norris MD [address] [place] [address] Consulting Physician Gastroenterology 05/12/22 documented as of this encounter
--- OUTSIDE RECORDS SUMMARY | 2025-02-18 21:05 | XMS_ITS | Encounter Summary ---
Author Organization [facility] Address [address] [place] [address] Phone Care Team Providers Care Cutter Operator Brick Name Role Phone Cheo Potts MD Primary Care Provider Neftaly Portillo MD Unavailable [phone] Tree Ruiz MD PhD Unavailable [phone] Katharina Mac LOG SAWYER Unavailable [phone] Qi Norris MD Unavailable [phone] Yuly Nieves RN Unavailable Katharina Mac LOG SAWYER Unavailable [phone] Tree Ruiz MD PhD Unavailable [phone] aOnh Trevizo LOG SAWYER Unavailable Oanh Trevizo LOG SAWYER Unavailable Torin Almodovar MD Unavailable [phone] Encounter Details Date Type Department Care Team (Latest Contact Info) Description 10/05/2022 Orders Only [facility] Berenice Olivares, RN [address] [facility] [address] [place] [address] Social History Tobacco Use Types [...] on file Legal Sex Male 3:18 AM CHEMICAL PROCESS EQUIPMENT OPERATOR Gender Identity Male 11/05/2020 12:05 PM CHEMICAL PROCESS EQUIPMENT OPERATOR Sexual Orientation Not on file documented as of this encounter Plan of Treatment Upcoming Encounters Date Type Department Care Team (Latest Contact Info) Description 02/21/2025 10:50 AM CDT Hospital Encounter [address] [place] [address] Neftaly Portillo MD [address] [address] Chest pain, unspecified type; Coronary artery disease of [place] artery of [place] heart with stable angina pectoris; Dizziness 02/21/2025 10:50 AM CDT - 02/21/2025 11:55 AM CDT Surgery [address] [place] [address] Neftaly Portillo MD [address] [id number] LEFT HEART CATHETERIZATION WITH CORONARY ANGIOGRAPHY AND WITH OR WITHOUT LEFT VENTRICULOGRAM [id number] documented as of this encounter Procedures Procedure Name Priority Date/Time Associated Diagnosis Comments SCAN - LABS 10/05/2022 documented in this encounter Results * SCAN - LABS (10/05/2022) Berenice Olivares RN Final Result documented in this encounter Visit Diagnoses Not on filedocumented in this encounter Care Teams Cutter Operator Brick Relationship Specialty Start Date End Date Cheo Potts MD [address] [place] [address] PCP - General 01/03/17 Neftaly Portillo MD [address] [place] [address] Consulting Physician Cardiology 11/15/18 Tree Ruiz MD PhD [address] [place] [address] Referring Physician Cardiology 12/10/20 11/20/23 Katharina Mac, DEBORA [address] [place] [address] Referring Physician Cardiology 12/10/20 11/20/23 Qi Norris MD [address] [address] Referring Physician Gastroenterology 05/10/23 Yuly Nieves, CLARISSA [address] [place] [address] SHOP Outpatient Distribution Center Supervisor 09/22/23 10/18/23 Katharina Mac, DEBORA [address] [place] [address] Nurse Practitioner Cardiology 11/21/23 Tree Ruiz MD PhD [address] [place] [address] Consulting Physician Cardiology 11/21/23 Oanh Trevizo, DEBORA [address] [facility] [address] [place] [address] Nurse Practitioner Solar Resource Assessor 07/18/24 11/12/24 Oanh Trevizo, DEBORA [address] [facility] [address] [place] [address] Nurse Practitioner Solar Resource Assessor 09/18/24 [place] [address] [facility] [address] [address] Consulting Physician Pain Management 11/13/24 documented as of this encounter
--- OUTSIDE RECORDS SUMMARY | 2025-02-18 21:05 | XMS_ITS | Encounter Summary ---
Author Organization [facility] Address [address] [place] [address] Phone Care Team Providers Care Stencil Printer Name Role Phone Cheo Potts MD Primary Care Provider Neftaly Portillo MD Unavailable [phone] Qi Norris MD Unavailable [phone] Katharina Mac MARBLE RUBBER Unavailable Tree Ruiz MD PhD Unavailable [phone] Oanh Trevizo MARBLE RUBBER Unavailable [phone] Torin Almodovar MD Unavailable Encounter Details Date Type Department Care Team (Late st Contact Info) Description 02/17/2025 Results Follow-Up [facility] Cardiology [address] [facility] [address] [place] [address] Mae Villanueva RMA CBC with auto differential, Basic metabolic panel Social History Tobacco Use Types Packs/Day Years Used Date Smoking Tobacco: Former Cigarettes Q uit: 1972 Passive Smoke Exposure: Past Smokeless Tobacco: Never Alcohol Use Standard Drinks/Week Comments Yes 7 (1 standard drink = 0.6 oz pur e alcohol) [facility] Utilities Answer Date Recorded In the past 12 months has [employer], gas, oil, or water company threatened [...] often do you attend chur ch or oriental orthodox services? Never 09/22/2023 Do you belong to any clubs o r organizations such as rastafarian groups, unions, fraternal or athletic groups, or [...] place to sleep or slept in a usp (including now)? No 09/22/2023 Personal Safety Answer Date Recorded Have you ever been in or are you currently in a harmful physical or emotional relationship or is someone making you feel afraid or unsafe? Denies 09/20/2023 Sex and Gender Information Value Date Recorded Sex Assigned at Not on file Legal Sex Male 3:18 AM WEED INSPECTOR Gender Identity Male 11/05/2020 12:05 PM WEED INSPECTOR Sexual Orientation Not on file documented as of this encounter Plan of Treatment Upcoming Encounters Date Type Department Care Team (Latest Contact Info) Description 02/21/2025 10:50 AM CDT Hospital Encounter [address] [place] [phone] Neftaly Portillo MD [address] [address] Chest pain, unspecified type; Coronary artery disease of [place] artery of [place] heart with stable angina pectoris; Dizziness 02/21/2025 10:50 AM CDT - 02/21/2025 11:55 AM CDT Surgery [address] [place] [phone] Neftaly Portillo MD [address] [address] LEFT HEART CATHETERIZATION WITH CORONARY ANGIOGRAPHY AND WITH OR WITHOUT LEFT VENTRICULOGRAM [id number] documented as of this encounter Visit Diagnoses Not on filedocumented in this encounter Care Teams Stencil Printer Relationship Specialty Start Date End Date Cheo Potts MD [address] [place] [address] PCP - General 01/03/17 Neftaly Portillo MD [address] [facility] [address] [place] [address] Consulting Physician Cardiology 11/15/18 Qi Norris MD [address] [facility] [address] [place] [address] Referring Physician Gastroenterology 05/10/23 Katharina Mac NP [address] [facility] [address] [place] [address] Nurse Practitioner Cardiology 11/21/23 Tree Ruiz MD PhD [address] [facility] [address] [place] [address] Consulting Physician Cardiology 11/21/23 [place] [address] [facility] [address] [place] [address] Nurse Practitioner Ruby On Rails Developer 09/18/24 [place] [address] [facility] [address] [place] [place] [address] Consulting Physician Pain Management 11/13/24 documented as of this encounter
--- OUTSIDE RECORDS SUMMARY | 2025-02-18 21:05 | XMS_ITS | Encounter Summary ---
Author Organization [facility] Address [address] [place] [address] Phone Care Team Providers Care Oncology Consultant Name Role Phone Cheo Potts MD Primary Care Provider Neftaly Portillo MD Unavailable [phone] Tree Ruiz MD PhD Unavailable [phone] Katharina Mac FINISH MILL OPERATOR Unavailable Qi Norris MD Unavailable [phone] Yuly Nieves RN Unavailable [phone] Katharina Mac FINISH MILL OPERATOR Unavailable Tree Ruiz MD PhD Unavailable [phone] Oanh Trevizo FINISH MILL OPERATOR Unavailable [phone] Oanh Trevizo FINISH MILL OPERATOR Unavailable Torin Almodovar MD Unavailable [...] on file 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 Gender Identity Male 11/05/2020 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 Sexual Orientation Not on file documented as of this encounter Plan of Treatment Upcoming Encounters Date Type Department Care Team (Latest Contact Info) Description 02/21/2025 10:50 AM CDT Hospital Encounter [address] [place] [id number] Neftaly Portillo MD [address] [id number] Chest pain, unspecified type; Coronary artery disease of [place] artery of [place] heart with stable angina pectoris; Dizziness 02/21/2025 10:50 AM CDT - 02/21/2025 11:55 AM CDT Surgery [address] [place] [phone] Neftaly Portillo MD [address] [phone] LEFT HEART CATHETERIZATION WITH CORONARY ANGIOGRAPHY AND WITH OR WITHOUT LEFT VENTRICULOGRAM [id number] documented as of this encounter Procedures Procedure Name Priority Date/Time Associated Diagnosis Comments SLEEP LAB/STUDY - RESULT 12/20/2018 documented in this encounter Results * SLEEP LAB/STUDY - RESULT (12/20/2018) us Provider Scanning Final Result documented in this encounter Visit Diagnoses Not on filedocumented in this encounter Care Teams Oncology Consultant Relationship Specialty Start Date End Date Cheo Potts MD [address] [place] [address] PCP - General 01/03/17 Neftaly Portillo MD [address] [phone] Consulting Physician Cardiology 11/15/18 Tree Ruiz MD PhD [address] [facility] [address] [place] [phone] Referring Physician Cardiology 12/10/20 11/20/23 Katharina Mac, DEBORA [address] [facility] [address] [place] [address] Referring Physician Cardiology 12/10/20 11/20/23 Qi Norris MD 2 [facility] [address] [place] [address] Referring Physician Gastroenterology 05/10/23 Yuly Nieves, RN [address] [facility] [address] [place] [address] SHOP Outpatient Coding Analyst 09/22/23 10/18/23 Katharina Mac NP 4590 [facility] [address]300 [place] [address] Nurse Practitioner Cardiology 11/21/23 Tree Ruiz MD PhD 4590 [facility] [address] [place] [address] Consulting Physician Cardiology 11/21/23 [place] [address] [facility] [address] [place] [address] Nurse Practitioner Spinning Mule Tender 07/18/24 11/12/24 [place] [address] [facility] [address] [place] [address] Nurse Practitioner Spinning Mule Tender 09/18/24 [place] [address] [facility] [address] [place] [address] Consulting Physician Pain Management 11/13/24 documented as of this encounter
--- OUTSIDE RECORDS SUMMARY | 2025-02-18 21:05 | XMS_ITS | Clinical Summary ---
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 3 History of alcohol abuse 07/16/2021 Hepatomegaly 07/16/2021 Chronic idiopathic constipation 07/16/2021 Gastroesophageal reflux disease without esophagi tis 07/16/2021 PAD (peripheral artery disease) 02/26/2019 Coronary artery disease invo lving habematolel coronary artery of habematolel heart without angina pectoris 01/30/2019 Overview (10/24/2022): Added automatically from request for surgery [id number] Sick sinus syndrome 04/20/2018 Overview (10/24/2022): Added automatically from request for surgery [id number] Last Assessment & Plan: Cardiac resynchronization defibrillator [...] Recently Relevant to Health Maintenance Insurance MEDICARE [facility] Care Teams Coal Bagger Relationship Specialty Start Date End Date Cheo Potts MD [address] [place] [address] PCP - General Family Medicine 11/09/15 Marques Barksdale DO [address] [facility] [address] [place] [address] Gastroenterology 11/12/15 Barbara Warner APRN, PEA VINER MECHANIC [address] [place] [address] Nurse Practitioner Advanced Practice Nurse 10/24/22 Qi Norris MD [address] [place] [address] Consulting Physician Gastroenterology 05/12/22
--- OUTSIDE RECORDS SUMMARY | 2025-02-18 21:05 | XMS_ITS | Clinical Summary ---
Author Organization [facility] Address [address] [place] [address] Care Team Providers Care Oven Equipment Repairer Name Role Phone Cheo Potts MD Primary Care Provider [phone] Source Comments [facility],non-owned Affiliates and Associated Physician Practices is amultiple site organization consisting of ambulatory clinics and hospital sitesin [place], [place], [place] and [place]. This disclosure is being madepursuant to the Care Everywhere program and may not contain all information available regarding this patient. Last updated 18.[facility] Allergies Active Allergy Reactions Criticality Noted Date [...] Active azelastine (Astelin) 0.1 % nasal spray [place] 2 (two) sprays into each nostril once [...] (12/17/2024): Added automatically from request for surgery [id number] Sick sinus syndrome 04/20/2018 Overview (12/17/2024): Added automatically from request for surgery [id number] Last Assessment & Plan: Cardiac resynchronization defibrillator [...] (12/17/2024): Added automatically from request for surgery [id number] Dizziness and giddiness 01/10/2017 High risk medication [...] CDT Office Visit [facility] - [address] [address] Manish Calloway MD Right upper quadrant abdominal pain (Primary Dx) 12/17/2024 Telephone [facility] - [address] [address] Anya Lovell RN Appointment 12/17/2024 Travel from [...] on file 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 Gender Identity Not on file Sexual Orientation Not on file Last Filed Vital Signs Vital Sign Reading Time Taken Comments Blood Pressure 120/75 12/17/2024 12:33 PM CDT Pulse 72 12/17/2024 12:33 PM CDT Temperature 36.9 C (98.4 F) 12/17/2024 12:33 PM CDT Respiratory Rate 11 09/27/2024 3:15 PM GENERATOR WORKER Oxygen Saturation 98% 12/17/2024 12:33 PM CDT [...] Visit [facility] [address] [facility] [place] [address] Marlene Gay PA-C [address] [place] [address] Health Maintenance Due Date Last [...] prior to your last dose Insurance MEDICARE [facility] MEDICARE [facility] Care Teams Oven Equipment Repairer Relationship Specialty Start Date End Date Cheo Potts MD [address] [place] [address] PCP - General 01/07/16
--- OUTSIDE RECORDS SUMMARY | 2025-02-18 21:05 | XMS_ITS | Clinical Summary ---
Author Organization [facility] Address [address] [place] [address] Care Team Providers Care Air Conditioning Mechanic Industrial Name Role Phone Cheo Potts MD Primary Care Provider Neftaly Portillo MD Unavailable [phone] Qi Norris MD Unavailable [phone] Katharina Mca CANDLE MOLDER MACHINE Unavailable [phone] Tree Ruiz MD PhD Unavailable [phone] Oanh Trevizo CANDLE MOLDER MACHINE Unavailable Torin Almodovar MD Unavailable Allergies Active Allergy Reactions Criticality Noted Date Comments Celecoxib Other (See comments) Low Altered depth perception Ciprofloxacin Muscle pain,Other (S ee comments) Medium 12/06/2017 Muscle weakness FEELS BAD Latex Rash,Itching Medium 04/11/2017 Medications calcium carbonate-vitamin D3 1,500 mg (600mg elemental) -800 unit per tabletIndications :Hypocalcemia Prevention,Preven tion of Vitamin D Deficiency 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 mouth election assistant 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 Active coenzyme Q10 200 mg capsuleIndication s:supplement Take 1 capsule (200 mg total) by mouth nightly Active magnesium oxide 200 mg tablet,chewableIn dications:supplem ent Take 200 mg by mouth election assistant 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 Active polyethylene glycol (MIRALAX) 17 gram packetIndications :constipation Take 1 packet (17 g total) by mouth nightly Active multivitamin no.44-vit D3-K 1,000-800 unit-mcg capsuleIndication s:Mineral Deficiency Prevention,Vitami n Deficiency Prevention 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 mouth election assistant 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 Active azelastine (ASTELIN) 137 [...] 1 tablet (5 mg total) by mouth election assistant 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 2 Active sucralfate (CARAFATE) [...] GI bleeding 02/08/2023 Lumbar facet arthropathy 09/20/2022 [facility] current use of anticoagulant 3 Lumbar radiculopathy 09/13/2022 Chronic midline low back pain without sciatica 0 09/13/2022 DDD (degenerative disc disease), lumbar 09/13/19 23 Sacroiliitis 09/13/2022 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 Chronic idiopathic constipation 07/16/2021 Hepatomegaly 07/16/2021 History of alcohol abuse 07/16/2021 PAD (peripheral artery disease) 02/26/2019 Coronary artery disease invo lving [place] coronary artery of [place] heart without angina pectoris 01/30/2019 Overview (01/30/2019): Added automatically from request for surgery [id number] Abnormal EKG 01/30/2019 Overview (01/30/2019): Added automatically from request for surgery [id number] Sick sinus syndrome 04/20/2018 Overview (04/20/2018): Added automatically from request for surgery [id number] Assessment & Plan (04/27/2018 8:59 AM CDT): [...] Department Care Team Description 02/17/2025 Results Follow-Up [facility] Cardiology [address] [facility] Medical Office Building [address] [place] [address] Mae Villanueva RMA CBC with auto differential, Basic metabolic panel 01/30/2025 Orders Only [facility] Neurosurgery [facility] 6th [place] [address] [place] [address] Ewa Nath NP Lumbar spondylosis (Primary Dx); Lumbar stenosis with neurogenic claudication 01/29/2025 Telephone [facility] Neurosurgery [facility] [address] [place] [address] [place] [address] Ewa Nath NP 01/17/2025 2:30 PM CDT Office Visit [facility] Orthopaedic Surgery [address] [facility] 2nd Floor [address] [place] [address] Bell Smith PA Primary osteoarthritis of both knees (Primary Dx) 01/17/2025 Telephone [facility] Neuro Sleep [address] [facility] 6th Floor [address] [place] [address] Rin Knapp RN DME order 01/16/2025 Orders Only [facility] Stroke [address] [place] [address] Mauro Zamora MD CORNEL (obstructive sleep apnea) (Primary Dx) 01/16/2025 Telephone [facility] Neuro Sleep [address] [facility] 6th Floor [address] [place] [address] Rin Knapp RN 01/08/2025 Patient Message [facility] [id number] [place] [address] [phone] Torin Almodovar MD PT 01/07/2025 12:45 PM CDT - 01/07/2025 11:59 PM CDT Hospital Encounter [facility] [address] [place] [address] [phone] Oanh Trevizo NP Spinal stenosis of lumbar region without neurogenic claudication (Primary Dx); Lumbar radiculopathy; Primary hypertension Discharge Disposition: Discharge to home or self care 01/06/2025 Telephone [facility] Cardiology [facility] 8th [place] [address] [place] [address] Neftaly Portillo MD Dizziness; Chest Pain; Procedure (LHC) 01/01/2025 Telephone [facility] Cardiology [facility] Advanced Medicine 8th [place] [address] [place] [address] Neftaly Portillo MD Medical Records Request 12/31/2024 Telephone [facility] [address] [place] [address] Earl Michelle Med Management (Tramadol after seizure) 12/18/2024 9:45 AM CDT Office Visit [facility] Cardiothoracic Surgery [address] [place] [address] Advanced [facility] 8th Floor [address] Room [address] [place] [address] Dorothea Dick MD Aneurysm of ascending aorta without rupture (Primary Dx) 12/18/2024 Orders Only [facility] Cardiothoracic Surgery [address] [place] [address] Advanced [facility] 8th Floor [address] Room [address] [address] Dorothea Dick MD Aneurysm of ascending aorta without rupture (Primary Dx) 12/06/2024 Results Follow-Up [facility] Cardiology [address] [facility] Medical Office Building [address] [place] [address] Mae Villanueva RMA Basic metabolic panel 12/03/2024 Results Follow-Up [facility] Cardiology [address] [facility] [address] [place] [address] Zainab Francis NP Transthoracic Echo (TTE) Complete W Doppler/CF 11/25/2024 1:00 PM CDT Office Visit [facility] Orthopaedic Surgery [address] [facility] Medical Office Building [address] [place] [address] Bell Smith PA Primary osteoarthritis of both knees (Primary Dx) 11/25/2024 11:30 AM CDT Ancillary Procedure [facility] [address] [facility] [address] [place] [address] Left ventricular dysfunction 11/25/2024 Results Follow-Up [facility] Cardiology [address] [facility] [address] [place] [address] Zainab Francis NP Basic metabolic panel, CBC with auto differential 11/19/2024 1:00 PM CDT Office Visit [facility] Cardiology [address] [facility] [address] [place] [address] Zainab Francis NP Palpitations (Primary Dx); Left ventricular dysfunction; Aneurysm of ascending aorta without rupture; Paroxysmal atrial fibrillation (HCC); Coronary artery disease involving [place] coronary artery of [place] heart without angina pectoris; Cardiomyopathy, unspecified type [...] 0.6 oz pur e alcohol) [facility] Utilities Answer Date Recorded In the past 12 months has th e electric, gas, oil, or water [employer] threatened to shut off services in your [...] often do you attend chur ch or orthodoxy services? Never 09/22/2023 Do you belong to [...] place to sleep or slept in a fdc (including now)? No 09/22/2023 Personal Safety Answer Date Recorded Have you ever been in or are you currently in a harmful physical or emotional relationship or is someone making you feel afraid or unsafe? Denies 09/20/2023 Sex and Gender Information Value Date Recorded Sex Assigned at Not on file Legal Sex Male 3:18 AM HOT DIMPLING MACHINE OPERATOR Gender Identity Male 11/05/2020 12:05 PM HOT DIMPLING MACHINE OPERATOR Sexual Orientation Not on file Obstetrics History [...] Description 02/21/2025 10:50 AM CDT Hospital Encounter [address] [place] [address] Neftaly Portillo MD [address] [facility] [address] [place] [address] Chest pain, unspecified type; Coronary artery disease of [place] artery of [place] heart with stable angina pectoris; Dizziness 02/21/2025 10:50 AM CDT - 02/21/2025 11:55 AM CDT Surgery [address] [place] [phone] Neftaly Portillo MD [address] [facility] [address] [place] [address] LEFT HEART CATHETERIZATION WITH CORONARY ANGIOGRAPHY AND WITH OR WITHOUT LEFT VENTRICULOGRAM [id number] Health Maintenance Due Date Last Done Comments [...] 05/18/2021, 02/18/2019 Medical Devices Implanted Type Area Clinical Engineering Director Device Identifier Shelf Expiration Date Model / Serial / Lot Medtronic Cardiac Rhythm Mgmt 5076-52 Capsurefix Novus 6.2fr 2mm 52cm Bipolar Screw In Implantable Latex Free - [id number] - [id number] Implanted:Qty: 1 on 04/24/2018 by Osmany Pina MD at [facility] Pacemaker Left: Heart Medtronic Cardiac Rhythm Mgmt [id number] 03/08/2020 5076-52 / [id number] / Medtronic Cardiac Rhythm Mgmt 5076-45 Capsurefix Novus Od6.2 Fr; Odsec2 Mm L45 Cm Bipolar; Screw In; Im - [id number] - [id number] Implanted:Qty: 1 on 04/24/2018 by Osmany Pina MD at [facility] Pacemaker Left: Heart Medtronic Cardiac Rhythm Mgmt [id number] 02/13/2020 5076-45 / [id number] / Medtronic Inc [id number] Attain Performa Starfix 5.3fr 5.1fr 88cm Quadripolar Is4-Llll Latex Free - [id number] - [id number] Implanted:Qty: 1 on 04/24/2018 by Osmany Pina MD at [facility] Pacemaker Left: Heart Medtronic Inc 02/15/2020 [id number] / [id number] / Pacemaker Cardiac 11mm 19.9cu Cm 46.5x59mm Rain Surescan - [id number] - [id number] Implanted:Qty: 1 on 04/24/2018 by Osmany Pina MD at [facility] Pacemaker Left: Chest Medtronic Inc 06/17/2019 [id number] / [id number] / [employer] Device Clsr Perclose Prostyle Sut-Mediatd Closure-Repair Sys 44532-59 - [id number] - [id number] Implanted:Qty: 1 on 09/20/2023 by Antoine Nelson MD at [facility] Vascular Closure Device N/A: Femoral Vein [employer] 05/04/2025 24254-85 / [id number] / [id number] Procedures Procedure Name Priority Date/Time Associated Diagnosis Comments BASIC METABOLIC PANEL Routine 02/13/2025 11:56 AM CDT Dizziness Chest pain, unspecified type Primary hypertension Coronary artery disease involving [place] coronary artery of [place] heart without angina pectoris CBC WITH AUTO DIFFERENTIAL Routine 02/13/2025 11:56 AM CDT Dizziness Chest pain, unspecified type Primary hypertension Coronary artery disease involving [place] coronary artery of [place] heart without angina pectoris NC ARTHROCENTESIS ASPIR&/INJ MAJOR JT/BURSA W/O US Routine 01/17/2025 2:30 PM CDT Primary osteoarthritis of both knees BASIC METABOLIC PANEL Routine 12/05/2024 12:13 PM CDT Coronary artery disease involving [place] coronary artery of [place] heart without angina pectoris Palpitations NC ARTHROCENTESIS ASPIR&/INJ MAJOR JT/BURSA W/O US Routine 11/25/2024 1:00 PM CDT Primary osteoarthritis of both knees TRANSTHORACIC ECHO (TTE) COMPLETE W DOPPLER/CF WO CONTRAST Routine 11/25/2024 12:41 PM CDT Left ventricular dysfunction CBC WITH AUTO DIFFERENTIAL Routine 11/22/2024 12:30 PM CDT Coronary artery disease involving [place] coronary artery of [place] heart without angina pectoris BASIC METABOLIC PANEL Routine 11/22/2024 12:30 PM CDT Coronary artery disease involving [place] coronary artery of [place] heart without angina pectoris ECG 12-LEAD Routine 11/19/2024 1:48 PM CDT Palpitations CTA ABDOMINAL AORTA AND BILATERAL ILIOFEMORAL RUNOFF Schedule Routine, Read Routine (OP Routine) 02/18/2019 3:29 PM CDT Abnormal ankle brachial index (ODALIS) Pain in both lower extremities from Last 3 Months or Most Recently Relevant to Health Maintenance Results * CBC with auto differential (02/13/2025 11:56 AM CDT) Pathologist [facility] WBC 5.3 3.8 - 10.8 Thousand/u L [facility] RBC, POC 4.55 4.20 - 5.80 Million/uL [facility] Hgb 14.4 13.2 - 17.1 g/dL [facility] Hct 43.9 38.5 - 50.0 % [facility] [facility] MCV 96.5 80.0 - 100.0 fL [facility] MCH 31.6 27.0 - 33.0 pg [facility] MCHC 32.8 32.0 - 36.0 g/dL [facility] Comment: For adults, a slight decrease in the calculated MCHC value (in the range of 30 to 32 g/dL) is most likely not clinically significant; however, it should be interpreted with caution in correlation with other red cell parameters and the patient's clinical condition. Rdw 13.3 11.0 - 15.0 % [facility] [facility] Platelets 254 140 - 400 Thousand/u L [facility] MPV 9.1 7.5 - 12.5 fL [facility] Neutrophils, abs 2,544 1,500 - 7,800 cells/uL [facility] Lymphocytes, abs 2,104 850 - 3,900 cells/uL [facility] [employer] [facility] Monocyte abs 541 200 - 950 cells/uL [facility] Eosinophils, abs 69 15 - 500 cells/uL [facility] Basophils, abs 42 0 - 200 cells/uL [facility] [employer] [facility] Neutrophils 48 % [facility] [facility] Lymphocyte pct 39.7 % [facility] [employer] [facility] Monocytes 10.2 % [facility] Eosinophils 1.3 % [facility] Basophils 0.8 % [facility] Blood 02/13/2025 11:5 6 AM CDT 02/13/2025 11:57 AM CDT Narrative [facility] - 02/14/2025 3:06 AM CDT FASTING:NO FASTING: NO us Neftaly Portillo MD LAB BLOOD ORDERABLES Final Res ult [facility] [address] [place] [address] * (ABNORMAL) Basic metabolic panel (02/13/2025 11:56 AM CDT) [facility] Glucose 93 65 - 99 mg/dL [employer] [facility]it[facility] Smith Comment: Fasting reference interval BUN 13 7 - 25 mg/dL [employer] stephanie Smith Creatinine 0.64(L) 0.70 - 1.22 mg/dL [employer] [facility]Maritza Smith eGFR 95 > OR = 60 mL/min/1.7 3m2 [employer] [facility]Maritza Smith BUN/creat ratio 20 6 - 22 (calc) [employer] [facility] Smith Sodium 137 135 - 146 mmol/L [employer] stephanie Smith Potassium, pl 4.1 3.5 - 5.3 mmol/L [employer] stephanie Smith Chloride 100 98 - 110 mmol/L [employer] stephnaie Smith CO2 32 20 - 32 mmol/L [employer] stephanie Smith Calcium 9.0 8.6 - 10.3 mg/dL [employer] stephanie Smith Blood 02/13/2025 11:5 6 AM CDT 02/13/2025 11:57 AM CDT Narrative [facility] - 02/14/2025 3:06 AM CDT FASTING:NO FASTING: NO us Neftaly Portillo MD LAB BLOOD ORDERABLES Final Res ult [facility] [address] [place] [address] * [place] ARTHROCENTESIS ASPIR&/INJ MAJOR JT/BURSA W/O US (01/17/2025 [...] CDT) Glucose 63(L) 65 - 99 mg/dL [employer] [facility] stephanie Smith Comment: Fasting reference interval BUN 15 7 - 25 mg/dL [employer] stephanie Smith Creatinine 0.73 0.70 - 1.22 mg/dL [facility] [employer] t Luis eGFR 91 > OR = 60 mL/min/1.7 3m2 [facility]S stephanie Smith BUN/creat ratio SEE NOTE: 6 - 22 (calc) [facility] [employer] stephanie Smith Comment: Not Reported: BUN and Creatinine are within reference range. Sodium 131(L) 135 - 146 mmol/L [facility] stephanie Smith Potassium, pl 4.3 3.5 - 5.3 mmol/L [facility] stephanie Smith Chloride 96(L) 98 - 110 mmol/L [employer] stephanie Smith CO2 29 20 - 32 mmol/L [facility] Calcium 9.1 8.6 - 10.3 mg/dL [facility] stephanie Smith Blood 12/05/2024 12:1 3 PM CDT 12/05/2024 12:13 PM CDT Zainab Francis CANDLE MOLDER MACHINE LAB BLOOD ORDERABLES Final Re sult [facility] [address] [place] [address] * [place] ARTHROCENTESIS ASPIR&/INJ MAJOR JT/BURSA W/O US (11/25/2024 [...] Narrative 12/02/2024 11:23 PM CDT [facility] Cardiac Diagnostic Lab [address] , [address] [place] [address] Transthoracic Echocardiographic Report Patient Name: DONALD FATIMA MI : 1940 (84y 7m) Gender: M Study Date: 11/25/2024 12:03:57 PM Ht(Inch): 69 Wt(Lb): 182.1 BSA: 2.01 Gas Pumping Station Operator: Francisca Sánchez RDCS Location: [facility] Heart Rate: 74 BMI: 26.89 BP: [...] LA Length 4C 4.17 cm AI Decel Dickenson 1.91 m/s2 LA Length 2C 4.69 cm [...] Neftaly Portillo MD - 12/02/2024 [facility] Cardiac Diagnostic Lab [address] , [address] [place] [address] Transthoracic Echocardiographic Report Patient Name: DONALD FATIMA MI : 1940 (84y 7m) Gender: M Study Date: 11/25/2024 12:03:57 PM Ht(Inch): 69 Wt(Lb): 182.1 BSA: 2.01 Gas Pumping Station Operator: Francisca Sánchez RDCS Location: [facility] Heart Rate: 74 BMI: 26.89BP: 100 [...] [ -25.0 - -18.0 ] AI Decel [id number] sec LA Length 4C 4.17 cm AI Decel Slope1.91 m/s2 LA Length 2C 4.69 cm AI QFH500.96 msec LA Volume BP 45.23 ml MV [...] [ 3.10 - 3.70 ] MV Decel [id number] msec [ 104.00 - 258.00 ] Ao [...] WBC 5.1 3.8 - 10.8 Thousand/u L [facility] RBC, POC 4.49 4.20 - 5.80 Million/uL [facility] Hgb 14.2 13.2 - 17.1 g/dL [facility] Hct 42.4 38.5 - 50.0 % [facility] MCV 94.4 80.0 - 100.0 fL [facility] MCH 31.6 27.0 - 33.0 pg [facility] MCHC 33.5 32.0 - 36.0 g/dL [facility] Comment: For adults, a slight decrease in the calculated MCHC value (in the range of 30 to 32 g/dL) is most likely not clinically significant; however, it should be interpreted with caution in correlation with other red cell parameters and the patient's clinical condition. Rdw 12.1 11.0 - 15.0 % [facility] Platelets 279 140 - 400 Thousand/u L [facility] MPV 8.9 7.5 - 12.5 fL [facility] Neutrophils, abs 2,392 1,500 - 7,800 cells/uL [facility] Lymphocytes, abs 2,035 850 - 3,900 cells/uL [facility] Monocyte abs 515 200 - 950 cells/uL [facility] Eosinophils, abs 97 15 - 500 cells/uL [facility] Basophils, abs 61 0 - 200 cells/uL [facility] Neutrophils 46.9 % [facility] Lymphocyte pct 39.9 % [facility] Monocytes 10.1 % [facility] Eosinophils 1.9 % [facility] Basophils 1.2 % [facility] Blood 11/22/2024 12:3 0 PM CDT 11/22/2024 12:30 PM CDT Zainab Francis CANDLE MOLDER MACHINE LAB BLOOD ORDERABLES Final Re sult Performing Organization Address [facility] de Phone Number [facility] [address] [place] [address] * (ABNORMAL) Basic metabolic panel (11/22/2024 12:30 PM CDT) [facility] Glucose 93 65 - 99 mg/dL [employer] stephanie Luis Comment: Fasting reference interval BUN 11 7 - 25 mg/dL [employer]S stpehanie Smith Creatinine 0.71 0.70 - 1.22 mg/dL [facility]S t Luis eGFR 92 > OR = 60 mL/min/1.7 3m2 [facility] BUN/creat ratio SEE NOTE: - (calc) [facility] stephanie Luis Comment: Not Reported: BUN and Creatinine are within reference range. Sodium 130(L) 135 - 146 mmol/L [employer] [facility] stephanie Luis Potassium, pl 4.4 3.5 - 5.3 mmol/L [facility] Luis Chloride 95(L) 98 - 110 mmol/L [employer] [facility] stephanie Luis CO2 29 20 - 32 mmol/L [facility] Calcium 8.9 8.6 - 10.3 mg/dL [employer] [facility] Blood 11/22/2024 12:3 0 PM CDT 11/22/2024 12:30 PM CDT Zainab Francis CANDLE MOLDER MACHINE LAB BLOOD ORDERABLES Final Re sult Performing Organization Address [facility] de Phone Number [facility] [address] [place] [address] * ECG 12 lead (11/19/2024 1:48 PM CDT) Zainab Francis CANDLE MOLDER MACHINE ECG ORDERABLES Final Result * CTA Abdominal [...] MEDICARE BLUE CROSS MEDICARE SUPPLEMENT MEDICARE MEDICARE [facility] MEDICARE [facility] MEDICARE SUPPLEMENT MEDICARE [facility] MEDICARE SUPPLEMENT Advance Directives For more information, please contact: [phone] * Full Code (Latest Code Status on File) Date Activated Date Inactivated Comments 09/20/2023 6:27 PM 09/21/2023 7:45 PM * Full Code Date Activated Date Inactivated Comments 04/24/2018 5:50 PM 04/27/2018 2:46 PM * Full Code Date Activated Date Inactivated Comments 03/24/2018 11:24 PM 03/25/2018 4:51 PM Care Teams Air Conditioning Mechanic Industrial Relationship Specialty Start Date End Date Cheo Potts MD [address] [facility] [address] [facility] [address] [place] [address] PCP - General 01/03/17 Neftaly Portillo MD [address] [facility] [address] [place] [address] Consulting Physician Cardiology 11/15/18 iQ Norris MD [address] [address] Referring Physician Gastroenterology 05/10/23 Katharina Mac NP [address] [address] Nurse Practitioner Cardiology 11/21/23 Tree Ruiz MD PhD [address] [address] Consulting Physician Cardiology 11/21/23 [place] [address] [address] Nurse Practitioner Epic Manager 09/18/24 [place] [address] [address] [place] [address] [address] [place] [address] Consulting Physician Pain Management 11/13/24
--- OUTSIDE RECORDS SUMMARY | 2025-02-18 21:05 | XMS_ITS | Encounter Summary ---
Author Organization [facility] Address [address] [place] [address] Phone Care Team Providers Care Interactive Developer Name Role Phone Cheo Potts MD Primary Care Provider Neftaly Portillo MD Unavailable [phone] Tree Ruiz MD PhD Unavailable [phone] Katharina Mac BOOM PUMP OPERATOR Unavailable [phone] Qi Norris MD Unavailable [phone] Yuly Nieves RN Unavailable Katharina Mac BOOM PUMP OPERATOR Unavailable [phone] Tree Ruiz MD PhD Unavailable [phone] Oanh Trevizo BOOM PUMP OPERATOR Unavailable Oanh Trevizo BOOM PUMP OPERATOR Unavailable Torin Almodovar MD Unavailable Reason for Visit * Reason Onset Date Comments CALL BACK 04/20/2018 Encounter Details Date Type Department Care Team (Late st Contact Info) Description 04/20/2018 Telephone [facility] Cardiology [address] [facility] 8th [place] [address] [place] [address] Tree Ruiz MD PhD [address] [facility] [address] [place] [address] CALL BACK Social History Tobacco Use Types Packs/Day Years Used Date Smoking Tobacco: Former Smokeless Tobacco: Never Alcohol Use Standard Drinks/Week Comments No 7 (1 standard drink = 0.6 oz pur e alcohol) Sex and Gender Information Value Date Recorded Sex Assigned at Not on file Legal Sex Male 3:18 AM COAL MINER Gender Identity Male 11/05/2020 12:05 PM COAL MINER Sexual Orientation Not on file documented as of this encounter Plan of Treatment Upcoming Encounters Date Type Department Care Team (Latest Contact Info) Description 02/21/2025 10:50 AM CDT Hospital Encounter [address] [place] [address] Neftaly Portillo MD [address] [id number] Chest pain, unspecified type; Coronary artery disease of [place] artery of [place] heart with stable angina pectoris; Dizziness 02/21/2025 10:50 AM CDT - 02/21/2025 11:55 AM CDT Surgery [address] [place] [id number] Neftaly Portillo MD [address] [id number] LEFT HEART CATHETERIZATION WITH CORONARY ANGIOGRAPHY AND WITH OR WITHOUT LEFT VENTRICULOGRAM [id number] documented as of this encounter Visit Diagnoses Not on filedocumented in this encounter Care Teams Interactive Developer Relationship Specialty Start Date End Date Cheo Potts MD [address] [place] [address] PCP - General 01/03/17 Neftaly Portillo MD [address] [address] Consulting Physician Cardiology 11/15/18 Tree Ruiz MD PhD [address] [place] [address] Referring Physician Cardiology 12/10/20 11/20/23 Katharina Mac NP [address] [facility] [address] [place] [address] Referring Physician Cardiology 12/10/20 11/20/23 Qi Norris MD 2 [facility] [address] [place] [address] Referring Physician Gastroenterology 05/10/23 Yuly Nieves, RN [address] [facility] 5300 [place] [address] [employer] [employer] Diagnostic Technician 09/22/23 10/18/23 Katharina Mac, DEBORA [address] [facility] 5300 [place] [address] Nurse Practitioner Cardiology 11/21/23 Tree Ruiz MD PhD [address] [facility] 5300 [place] [address] Consulting Physician Cardiology 11/21/23 [place] [address] [facility] 100 [place] [address] Nurse Practitioner Hair Or Beauty Salon Manager 07/18/24 11/12/24 [place] [address] [facility] 100 [place] [address] Nurse Practitioner Hair Or Beauty Salon Manager 09/18/24 [place] [address] [facility] 100 [address] [place] [address] Consulting Physician Pain Management 11/13/24 documented as of this encounter
--- OUTSIDE RECORDS SUMMARY | 2025-02-18 21:05 | XMS_ITS | Continuity of Care Document ---
Author Organization [facility] Address [address] [facility] [address] [place] [address] Phone Care Team Providers Care Point Of Care Specialist Name Role Phone Juve PT,MPT,ATC, Armando Unavailable Unavai lable Procedures Procedure Date Therapeutic Activities Neuromuscular Re-Ed Therapeutic Exercise Therapeutic Activities Therapeutic Exercise Neuromuscular Re-Ed Therapeutic Exercise Therapeutic Activities Therapeutic Activities Therapeutic Exercise Therapeutic Activities Therapeutic Exercise Therapeutic Activities Therapeutic Exercise Doc neg elder mal no plan Doc [...] Exercise Manual Therapy Therapeutic Activities Therapeutic Exercise Neuromuscular Re-Ed Manual Therapy Therapeutic Activities Therapeutic Exercise Manual [...] Diagnoses Date Provider Providers Copied on Encounter [facility], [place], [place], [address], tel:[phone] Bowler No Information Sep-2 2 Juve Castaneda [place], [place]. [facility], [place], [place], [address], tel:[phone] Bowler No Information Sep-2 2 Juve Castaneda [place]. [facility], [place], [place], [address], tel:[phone] Bowler No Information Sep-2 2 Juve Castaneda [place], . [facility], [place], [place], [address], tel:[phone] Bowler No Information Sep-1 2 Juve Castaneda [place], [place]. [facility], [place], [place], [address], [place] tel:[phone] Bow[place] No Information Sep-1 - 2 An Armando. , [place], [place]. [facility], [place], [place], [address], [place] tel:[phone] Bow[place] No Information Sep-0 2 An [place]. , [place]. [facility], [place], [place], [address], [place] tel:[phone] Bowler No Information Sep-0 2 An Arm[place]. , [place]. [facility], [address], [place], [place], [address], tel:[phone] Bowler No Information Dec-2 - 0 An Arm[place]. , [place]. [facility], [place], [place], [address], [place] tel:[phone] Bowler No Information Aug-09 08- 0 An Arm[place]. , [place]. [facility], [place], [place], [address], [place] tel:[phone] Bowler No Information 2 - 0 An Arm[place]. , [place]. [facility], [place], [place], [address], [place] tel:[phone] Bowler No Information Jul-1 - 0 An Arm[place]. , [place]. [facility], [place], [place], [address], [place] tel:[phone] Bowler No Information Jul-0 0 An Arm[place]. , [place]. [facility], [place], [place], [address], [place] tel:[phone] Bowler No Information - 0 An Arm[place]. , [place]. [facility], [place], [place], [address], [place] tel:[phone] Bowler No Information 0 An Arm[place]. , [place]. [facility], [place], [place], [address], tel:[phone] Bowler No Information 0 An Arm[place]. , [place]. [facility], [place], [place], [address], tel:[phone] Bowler No Information 0 An Arm[place]. , [place]. [facility], [place], [place], [address], tel:[phone] Bowler No Information 0 An Arm[place]. , [place]. [facility], [place], [place], [address], tel:[phone] Bowler No Information 9 Makler Luke. . [facility], [place], [place], [address], [place] tel:[phone] Bowler No Information 9 An Arm[place]. , [place]. [facility], [place], [place], [address], tel:[phone] Bowler No Information 9 Makler Luke. . [facility], [place], [place], [address], [place] tel:[phone] [place] No Information 0 9 Omar Durham. . Referring Provider: Tarik Fish, [address], [place], [address]. tel:[phone] [facility], [place], [place], [address], [place] tel:[phone] [place] No Information Oct-0 1-201 9 Treaster Marva. . Referring Provider: Nel Su[address]rez[address], [place], [address]. tel:[phone] [place] [address] [address], [place], [place], [address], tel:[phone] [place] No Information Sep-2 6-201 9 Treaster Marva. . Referring Provider: Nel Su[address]rez[address], [place], [address]. tel:[phone] [place] [address] [address], [place], [place], [address], [place] tel:[phone] [place] No Information Sep-1 9-201 9 Treaster Marva. . Referring Provider: Nel Su[address]rez[address], [place], [address]. tel:[phone] [place] [address] [facility] [address], [place], [place], [address], [place] tel:[phone] [place] No Information Sep-1 0-201 9 Treaster Marva. . Referring Provider: Nel Suárez[address], [place], [address]. tel:[phone] [place] [address] [address], [place], [place], [address], [place] tel:[phone] [place] No Information Sep-0 3-201 9 Treaster Marva. . Referring Provider: Nel Su[address]rez[address], [place], [address]. tel:[phone], [place], [place], [address], [place] tel:[phone] Bow[place] No Information Apr-2 7-201 9 [place]. Referring Provider: Nel Suárez[address], [place], [address]. tel:[phone] [facility], [place], [place], [address], [place] tel:[phone] Bowler Pain in left shoulderPain in right shoulder 8 An Armando. , [place]. [facility], [place], [place], [address], [place] tel:[phone] Bowler Pain in left shoulderPain in right shoulder 8 An Arm[place]. , [place]. [facility], [place], [place], [address], [place] tel:[phone] Bowler Pain in left shoulderPain in right shoulder 8 An Arm[place]. , [place]. [facility], [place], [place], [address], [place] tel:[phone] Bowler Pain in left shoulderPain in right shoulder 8 An Arm[place]. , [place]. [facility], [place], [place], [address], [place] tel:[phone] Bowler Pain in left shoulderPain in right shoulder 8 An Arm[place]. , [place]. [facility], [place], [place], [address], [place] tel:[phone] Bowler Pain in left shoulderPain in right shoulder 8 An [place]. , [place]. [facility], [place], [place], [address], [place] tel:[phone] Bowler Pain in left shoulderPain in right shoulder 8 An [place]. , [place]. [facility], [place], [place], [address], [place] tel:[phone] Bow[place] Pain in left shoulderPain in right shoulder Jun- 8 Juve Roberts. , [place]. [facility], [place], [place], [address], [place] tel:[phone] Bowler Pain in left shoulderPain in right shoulder Jun- 8 Francisco Qureshi. . [facility], [place], [place], [address], [place] tel:[phone] Bow[place] Pain in left shoulderPain in right shoulder Jun- 8 Juve Roberts. , [place]. [facility], [place], [place], [address], [place] tel:[phone] Bowler Pain in left shoulderPain in right shoulder Jun- 8 Juve Castaneda , [place]. [facility], [place], [place], [address], [place] tel:[phone] Bow[place] Pain in left shoulderPain in right shoulder Jun-0 8 Juve Roberts. , [place]. [facility], [place], [place], [address], [place] tel:[phone] Bowler Spinal stenosis, lumbar region without neurogenic andre Apr-0 8 Juve Castaneda , [place]. Referring Provider: Chris [address], [place], [place], [facility]. tel:[phone] [facility], [place], [place], [address], [place] tel:[phone] Bowler Spinal stenosis, lumbar region without neurogenic andre Apr-0 8 Juve Castaneda [place]. Referring Provider: Chris Ál[address], [place], [address]. tel:[phone] [facility], [place], [place], [address], [place] tel:[phone] Bowler Spinal stenosis, lumbar region without neurogenic andre Apr-0 2-201 8 An Armando. , [place]. Referring Provider: Aguila Álvarez[address] [place] [address] [address], [place], [facility]. tel:[phone] [facility], [address], [place], [place], [address], [place] tel:[phone] Bowler Spinal stenosis, lumbar region without neurogenic andre Mar-3 0-201 8 [place] Arm[place]. , [place] Referring Provider: Cheo Potts [address] [place] [address] [address], [place], [facility]. tel:[phone] [facility] [address], [place], [place], [address], [place] tel:[phone] Bowler Spinal stenosis, lumbar region without neurogenic andre Mar-2 8-201 8 [place] Arm[place]. , [place]. Referring Provider: Aguila Álvarez[address] [place] [address] [address], [place], [facility]. tel:[phone] [place] [address] [facility] [address], [place], [place], [address], [place] tel:[phone] Bowler Spinal stenosis, lumbar region without neurogenic andre Mar-2 6-201 8 [facility]. , [place]. Referring Provider: Aguila Álvarez[address] [place] [address] [address], [place], [facility]. tel:[phone] [facility] [address], [place], [place], [address], [place] tel:[phone] Bowler Spinal stenosis, lumbar region without neurogenic andre Mar-2 3-201 8 [facility]. , [place]. Referring Provider: Aguila Álvarez[address] [place] [address] [address], [place], [facility]. tel:[phone] [facility] [address], [place], [place], [address], [place] tel:[phone] Bowler Spinal stenosis, lumbar region without neurogenic andre Mar-2 1-201 8 An Armando. , [place]. Referring Provider: Aguila Álvarez[address] [place] [address] [address], [place], [address]. tel:[phone] [place] [address], [place], [place], [address], [place] tel:[phone] Bowler Spinal stenosis, lumbar region without neurogenic andre Mar-1 9-201 8 An Armando. , [place]. Referring Provider: Aguila Álvarez[address] [place] [address] [address], [place], [facility]. tel:[phone] [place] [address], [place], [place], [address], [place] tel:[phone] Bowler No Information Mar-1 6-201 8 An Armando. , [place]. Referring Provider: Aguila Álvarez[address] [place] [address] [address], [place], [facility]. tel:[phone], [place], [place], [address], [place] tel:[phone] Bow[place] No Information Mar-1 4-201 8 An Arm[place]. , [place]. Referring Provider: Chris Álvarez [facility] [address], [place], [facility]. tel:[phone], [place], [place], [address], [place] tel:[phone] Bow[place] No Information Mar-1 2-201 8 An Arm[place]. , [place]. Referring Provider: Chris Álvarez [facility] [address], [place], [facility]. tel:[phone] [facility] [address], [place], [place], [address], [place] tel:[phone] Bow[place] No Information Mar-0 9-201 8 An Arm[place]. , [place]. Referring Provider: Chris Álvarez [facility] [address], [place], [facility]. tel:[phone] [place] [address], [place], [place], [address], [place] tel:[phone] Bowler No Information Mar-0 7-201 8 An Arm[place]. , [place]. Referring Provider: Cheo Potts [address] [place] [address] [address], [place], [facility]. tel:[phone] [facility] [address], [place], [place], [address], [place] tel:[phone] Bow[place] No Information Mar-0 5-201 8 An [place]. , [place]. Referring Provider: Cheo Potts [address] [place] [address] [address], [place], [facility]. tel:[phone] [facility] [address], [place], [place], [address], tel:[phone] Bowler No Information Mar-0 2-201 8 Guillermina Adames. . Referring Provider: Cheo Potts [address] [place] [address] [address], [place], [facility]. tel:[phone] [facility], [address], [place], [place], [address], [place] tel:[phone] Bowler Spinal stenosis, lumbar region without neurogenic andre Feb-2 8-201 8 An Arm[place]. , [place]. Referring Provider: Cheo Potts [address] [place] [address] [address], [place], [facility]. tel:[phone] [facility] [address], [place], [place], [address], [place] tel:[phone] Bow[place] No Information Nov-0 9-201 7 An Arm[place]. , [place]. Referring Provider: Tarik Fish, [address] [facility] [address], [place], [address]. tel:[phone] [facility], [place], [place], [address], [place] tel:[phone] [place] No Information Nov-0 1-201 7 [facility] Referring Provider: Nel Suárez[address], [place], [address]. tel:[phone], [place], [place], [address], [place] tel:[phone] Bowler No Information Jun-3 0-201 7 [facility]. , [place]. Referring Provider: Nel Suárez[address], [place], [address]. tel:[phone] [facility] [address], [place], [place], [address], [place] tel:[phone] Bowler No Information Jun-2 3-201 7 [facility] [place] Referring Provider: Nel Suárez[address], [place], [address]. tel:[phone] [facility] [address], [place], [place], [address], [place] tel:[phone] Bowler No Information Jun- 9-201 7 [facility] [place] Referring Provider: Tacos Suárez [address], [place], [address]. tel:[phone] [facility] [address], [place], [place], [address], [place] tel:[phone] Bowler No Information Jun-1 6-201 7 [facility] [place] Referring Provider: Nel Suárez[address], [place], [address]. tel:[phone] [facility] [address], [place], [place], [address], [place] tel:[phone] Bowler No Information Jun-0 9-201 7 [place]. , [place]. Referring Provider: Tacos Suárez [address], [place], [address]. tel:[phone] [facility] [address], [place], [place], [address], tel:[phone] [place] No Information Jun-0 7 [place], . Referring Provider: Tacos Suárez [address], [place], [address]. tel:[phone] [facility] [address], [place], [place], [address], tel:[phone] [place] No Information Jun-0 7 [place], . Referring Provider: Tacos Suárez [address], [place], [address]. tel:[phone] [facility] [address], [place], [place], [address], tel:[phone] [place] No Information Sep-2 7 [place], . Referring Provider: Tacos Suárez [address], [place], [address]. tel:[phone] [facility] [address], [place], [place], [address], tel:[phone] [place] No Information Sep-2 7 Niederhomatthias Adames. . Referring Provider: Tacos Suárez [address], [place], [address]. tel:[phone] [facility] [address], [place], [place], [address], [place] tel:[phone] Michelle Stiffness of right knee, not elsewhere classifiedPai n in right kneeOth disrd of synovium and tendon, unspecified siteAbnormal posture Sep-2 7 Niederhoffer Rosangela. . Referring Provider: Tacos Suárez [address], [place], [address]. tel:[phone] Family History Family Member Type Diagnosis Age At Onset No Information Payers Payer name Insurance type Covered green party ID Authordariena tikavon(s) Medicare [place] [id number] [facility] [id number] Social History Type Description Quantity Date Captured [...]
--- OUTSIDE RECORDS SUMMARY | 2025-02-18 21:05 | XMS_ITS | Referral Summary ---
Author Organization [facility] Address [address] [place] [address] Care Team Providers Care Noodle Press Operator Name Role Phone Cheo Potts MD Primary Care Provider Neftaly Portillo MD Unavailable [phone] Qi Norris MD Unavailable [phone] Katharina Mac CENTRAL SERVICE TECHNICIAN Unavailable Tree Ruiz MD PhD Unavailable [phone] Oanh Trevizo CENTRAL SERVICE TECHNICIAN Unavailable Torin Almodovar MD Unavailable Encounters Date Type Department Care Team Description 02/17/2025 Results Follow-Up [facility] Cardiology [address] [facility] [address] [place] [address] Mae Villanueva RMA CBC with auto differential, Basic metabolic panel 01/30/[address] [facility] Neurosurgery [address] [facility] Advanced Medicine 6th [place] [address] [place] [address] Ewa Nath NP Lumbar spondylosis (Primary Dx); Lumbar stenosis with neurogenic claudication 01/29/[address] [facility] Neurosurgery [address] [facility] Advanced Medicine 6th [place] [address] [place] [address] Ewa Nath NP 01/17/[address] [facility] Neuro Sleep [address] [facility] 6th Floor [address] [place] [phone] Rin Knapp, RN DME order 01/17/2025 2:30 PM CDT Office Visit [facility] Orthopaedic Surgery [address] [facility] 2nd Floor [address] [place] [phone] Bell Smith PA Primary osteoarthritis of both knees (Primary Dx) 01/16/[address] [facility] Stroke [address] [facility] 6th Floor [address] [place] [phone] Mauro Zamora MD CORNEL (obstructive sleep apnea) (Primary Dx) 01/16/[address] [facility] Neuro Sleep [address] [facility] 6th Floor [address] [place] [phone] Rin Knapp RN 01/08/2025 Patient Message [facility] [address] [place] [address] Torin Almodovar MD PT 01/07/2025 12:45 PM CDT - 01/07/2025 11:59 PM CDT Hospital Encounter [facility] [address] [place] [address] Oanh Trevizo NP Spinal stenosis of lumbar region without neurogenic claudication (Primary Dx); Lumbar radiculopathy; Primary hypertension Discharge Disposition: Discharge to home or self care 01/06/[address] [facility] Cardiology [address] [place] [address] Medicine 8th [place] [address] [place] [address] Neftaly Portillo MD Dizziness; Chest Pain; Procedure (LHC) 01/01/[address] [facility] Cardiology [address] [place] [address] 8th [place] [address] [place] [address] Neftaly Portillo MD Medical Records Request 12/31/2024 Telephone [facility] [address] [place] [address] EarlMichelle cruz Med Management (Tramadol after seizure) 12/18/[address] [facility] Cardiothoracic Surgery Count includes the [facility] 8th Floor [address] Room [phone] [place] [address] Dorothea Dick MD Aneurysm of ascending aorta without rupture (Primary Dx) 12/18/2024 9:45 AM CDT Office Visit [facility] Cardiothoracic Surgery [address] [facility] 8th Floor [address] Room [address] [address] Dorothea Dick MD Aneurysm of ascending aorta without rupture (Primary Dx) 12/06/2024 Results Follow-Up [facility] Cardiology [address] [place] [address] Building [address] [place] [address] Mae Villanueva RMA Basic metabolic panel 12/03/2024 Results Follow-Up [facility] Cardiology [address] [place] [address] Zainab Francis NP Transthoracic Echo (TTE) Complete W Doppler/CF 11/25/2024 Results Follow-Up [facility] Cardiology [address] [place] [address] [place] [address] Zainab Francis NP Basic metabolic panel, CBC with auto differential 11/25/2024 11:30 AM CDT Ancillary Procedure [facility] [address] [place] [address] [address] [place] [address] Left ventricular dysfunction 11/25/2024 1:00 PM CDT Office Visit 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; Cardiomyopathy, unspecified type [...] D Deficiency 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 mouth drop worker 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 Active coenzyme Q10 200 mg capsuleIndication s:supplement Take 1 capsule (200 mg total) by mouth nightly Active magnesium oxide 200 mg tablet,chewableIn dications:supplem ent Take 200 mg by mouth drop worker 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 Active polyethylene glycol (MIRALAX) 17 gram packetIndications :constipation Take 1 packet (17 g total) by mouth nightly Active multivitamin no.44-vit D3-K 1,000-800 unit-mcg capsuleIndication s:Mineral Deficiency Prevention,Vitami n Deficiency Prevention 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 mouth drop worker 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 Active azelastine (ASTELIN) 137 mcg [...] 1 tablet (5 mg total) by mouth drop worker 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 2 Active sucralfate (CARAFATE) 1 [...] GI bleeding 02/08/2023 Lumbar facet arthropathy 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 3 Lumbar radiculopathy 09/13/2022 Chronic midline low back pain without sciatica 0 09/13/2022 DDD (degenerative disc disease), lumbar 09/13/19 23 Sacroiliitis 09/13/2022 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 Chronic idiopathic constipation 07/16/2021 Hepatomegaly 07/16/2021 History of alcohol abuse 07/16/2021 PAD (peripheral artery disease) 02/26/2019 Coronary artery disease invo lving kake coronary artery of kake heart without angina pectoris 01/30/2019 Overview (01/30/2019): Added automatically from request for surgery [id number] Abnormal EKG 01/30/2019 Overview (01/30/2019): Added automatically from request for surgery [id number] Sick sinus syndrome 04/20/2018 Overview (04/20/2018): Added automatically from request for surgery [id number] Assessment & Plan (04/27/2018 8:59 AM CDT): [...] PM CDT): - mild 3v dz on [facility] 03/2015 - ct ASA, statin Dizziness 01/10/2017 [...] drink = 0.6 oz pur e alcohol) [facility] Survature Answer Date Recorded In the past 12 months has [employer], [employer], or water [employer] threatened to shut off services in your [...] How often do you attend chur or taoist services? Never 09/22/2023 Do you belong to any clubs o r organizations such as mormonism groups, unions, fraternal or athletic groups, or [...] on file Legal Sex Male 3:18 AM PATIENT'S LIBRARIAN Gender Identity Male 11/05/2020 12:05 PM PATIENT'S LIBRARIAN Sexual Orientation Not on file Last Filed [...] Description 02/21/2025 10:50 AM CDT Hospital Encounter [address] [facility] [place] [phone] Neftaly Portillo MD [address] [address] Chest pain, unspecified type; Coronary artery disease of kake artery of kake heart with stable angina pectoris; Dizziness 02/21/2025 10:50 AM CDT - 02/21/2025 11:55 AM CDT Surgery [address] [facility] [place] [phone] Neftaly Portillo MD [address] [address] LEFT HEART CATHETERIZATION WITH CORONARY ANGIOGRAPHY AND WITH OR WITHOUT LEFT VENTRICULOGRAM [id number] Medical Devices Implanted Type Area Director Mission Device Identifier Shelf Expiration Date Model / Serial / Lot Medtronic Cardiac Rhythm Mgmt 5076-52 Capsurefix Novus 6.2fr 2mm 52cm Bipolar Screw In Implantable Latex Free - [id number] - [id number] Implanted:Qty: 1 on 04/24/2018 by Osmany Pina MD at [facility] Pacemaker Left: Heart Medtronic Cardiac Rhythm Mgmt [id number] 03/08/2020 5076-52 / [id number] / Medtronic Cardiac Rhythm Mgmt 5076-45 Capsurefix Novus Od6.2 Fr; Odsec2 Mm L45 Cm Bipolar; Screw In; Im - [id number] - [id number] Implanted:Qty: 1 on 04/24/2018 by Osmany Pina MD at [facility] Pacemaker Left: Heart Medtronic Cardiac Rhythm Mgmt [id number] 02/13/2020 5076-45 / [id number] / Medtronic Inc [id number] Attain Performa Starfix 5.3fr 5.1fr 88cm Quadripolar Is4-Llll Latex Free - [id number] - [id number] Implanted:Qty: 1 on 04/24/2018 by Osmany Pina MD at [facility] Pacemaker Left: Heart Medtronic Inc 02/15/2020 [id number] / [id number] / Pacemaker Cardiac 11mm 19.9cu Cm 46.5x59mm Rain Surescan - [id number] - [id number] Implanted:Qty: 1 on 04/24/2018 by Osmany Pina MD at [facility] Pacemaker Left: Chest Medtronic Inc 06/17/2019 [id number] / [id number] / Moore V[employer] Device Clsr Perclose Prostyle Sut-Mediatd Closure-Repair Sys 60221-36 - [id number] - [id number] Implanted:Qty: 1 on 09/20/2023 by Antoine Nelson MD at [facility] Vascular Closure Device N/A: Femoral Vein [employer] 05/04/2025 22429-02 / [id number] / [id number] Procedures Procedure Name Priority Date/Time Associated Diagnosis Comments BASIC METABOLIC PANEL Routine 02/13/2025 11:56 AM CDT Dizziness Chest pain, unspecified type Primary hypertension 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 CBC WITH AUTO DIFFERENTIAL Routine 02/13/2025 11:56 AM CDT Dizziness Chest pain, unspecified type Primary hypertension 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 TX ARTHROCENTESIS ASPIR&/INJ MAJOR JT/BURSA W/O US Routine 01/17/2025 2:30 PM CDT Primary osteoarthritis of both knees BASIC METABOLIC PANEL Routine 12/05/2024 12:13 PM CDT 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 Palpitations TX ARTHROCENTESIS ASPIR&/INJ MAJOR JT/BURSA W/O US Routine 11/25/2024 1:00 PM CDT Primary osteoarthritis of both knees TRANSTHORACIC ECHO (TTE) COMPLETE W DOPPLER/CF WO CONTRAST Routine 11/25/2024 12:41 PM CDT Left ventricular dysfunction CBC WITH AUTO DIFFERENTIAL Routine 11/22/2024 12:30 PM CDT 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 BASIC METABOLIC PANEL Routine 11/22/2024 12:30 PM CDT 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 ECG 12-LEAD Routine [...] WBC 5.3 3.8 - 10.8 Thousand/u L [facility] RBC, POC 4.55 4.20 - 5.80 Million/uL [facility] Hgb 14.4 13.2 - 17.1 g/dL [facility] Hct 43.9 38.5 - 50.0 % [facility] MCV 96.5 80.0 - 100.0 fL [facility] MCH 31.6 27.0 - 33.0 pg [facility] MCHC 32.8 32.0 - 36.0 g/dL [facility] Comment: For adults, a slight decrease in the calculated MCHC value (in the range of 30 to 32 g/dL) is most likely not clinically significant; however, it should be interpreted with caution in correlation with other red cell parameters and the patient's clinical condition. Rdw 13.3 11.0 - 15.0 % [facility] Platelets 254 140 - 400 Thousand/u L [facility] MPV 9.1 7.5 - 12.5 fL [facility] Neutrophils, abs 2,544 1,500 - 7,800 cells/uL [facility] Lymphocytes, abs 2,104 850 - 3,900 cells/uL [facility] Monocyte abs 541 200 - 950 cells/uL [facility] Eosinophils, abs 69 15 - 500 cells/uL [facility] Basophils, abs 42 0 - 200 cells/uL [facility] Neutrophils 48 % [facility] Lymphocyte pct 39.7 % [facility] Monocytes 10.2 % [facility] Eosinophils 1.3 % [facility] Basophils 0.8 % [facility] Blood 02/13/2025 11:5 6 AM CDT 02/13/2025 11:57 AM CDT Narrative [facility] - 02/14/2025 3:06 AM CDT FASTING:NO FASTING: NO us Neftaly Portillo MD LAB BLOOD ORDERABLES Final Res ult [facility] [address] [place] [address] * (ABNORMAL) Basic metabolic panel (02/13/2025 11:56 AM CDT) [facility] Glucose 93 65 - 99 mg/dL [facility] Comment: Fasting reference interval BUN 13 7 - 25 mg/dL [facility] Creatinine 0.64(L) 0.70 - 1.22 mg/dL [facility] eGFR 95 > OR = 60 mL/min/1.7 3m2 [facility] BUN/creat ratio 20 6 - 22 (calc) [facility] Sodium 137 135 - 146 mmol/L [facility] Potassium, pl 4.1 3.5 - 5.3 mmol/L [facility] Chloride 100 98 - 110 mmol/L [facility] stephanie Smith CO2 32 20 - 32 mmol/L [facility] Calcium 9.0 8.6 - 10.3 mg/dL [facility] stephanie Smith Blood 02/13/2025 11:5 6 AM CDT 02/13/2025 11:57 AM CDT Narrative [facility] - 02/14/2025 3:06 AM CDT FASTING:NO FASTING: NO us Neftaly Portillo MD LAB BLOOD ORDERABLES Final Res ult [facility] [address] [place] [address] * [place] ARTHROCENTESIS ASPIR&/INJ MAJOR JT/BURSA W/O US (01/17/2025 [...] metabolic panel (12/05/2024 12:13 PM CDT) Pathologist [facility] Glucose 63(L) 65 - 99 mg/dL [facility] stephanie Smith Comment: Fasting reference interval BUN 15 7 - 25 mg/dL [facility] stephanie Smith Creatinine 0.73 0.70 - 1.22 mg/dL [facility] stephanie Smith eGFR 91 > OR = [...] 12/05/2024 12:13 PM CDT us Zainab Francis CENTRAL SERVICE TECHNICIAN LAB BLOOD ORDERABLES Final Re sult [facility] [address] [place] [address] * [place] ARTHROCENTESIS ASPIR&/INJ MAJOR JT/BURSA W/O US (11/25/2024 [...] PM CDT Narrative 12/02/2024 11:23 PM CDT [facility] Cardiac Diagnostic Lab [address], [address] [place] [address] Transthoracic Echocardiographic Report Patient Name: DONALD FATIMA MI : 1940 (84y 7m) Gender: M Study Date: 11/25/2024 12:03:57 PM Ht(Inch): 69 Wt(Lb): 182.1 BSA: 2.01 Survey Supervisor: Francisca Sánchez RDCS Location: [facility] Heart Rate: 74 BMI: 26.89 BP: [...] LA Length 4C 4.17 cm AI Decel [place] 1.91 m/s2 LA Length 2C 4.69 cm [...] Procedure Note Neftaly Portillo MD - 12/02/2024 [facility] Cardiac Diagnostic Lab [address] , [address] [place] [address] Transthoracic Echocardiographic Report Patient Name: DONALD FATIMA MI : 1940 (84y 7m) Gender: M Study Date: 11/25/2024 12:03:57 PM Ht(Inch): 69 Wt(Lb): 182.1 BSA: 2.01 Survey Supervisor: Francisca Sánchez RDCS Location: [facility] Heart Rate: 74 BMI: 26.89BP: 100 [...] [ -25.0 - -18.0 ] AI Decel [id number] sec LA Length 4C 4.17 cm AI Decel [place]1.91 m/s2 LA Length 2C 4.69 cm AI ZEX276.96 msec LA Volume BP 45.23 ml MV [...] [ 3.10 - 3.70 ] MV Decel Jhus863.67 msec [ 104.00 - 258.00 ] Ao [...] 12/02/2024 11:23:49 PM CDT us Zainab Francis CENTRAL SERVICE TECHNICIAN CV ECHO PROCEDURES Final Resu lt * CBC with auto differential (11/22/2024 12:30 PM CDT) WBC 5.1 3.8 - 10.8 Thousand/u L [facility] RBC, POC 4.49 4.20 - 5.80 Million/uL [facility] Hgb 14.2 13.2 - 17.1 g/dL [facility] Hct 42.4 38.5 - 50.0 % [facility] MCV 94.4 80.0 - 100.[address] [facility] MCH 31.6 27.0 - 33.0 pg [facility] MCHC 33.5 32.0 - 36.0 g/dL [facility] Comment: For adults, a slight decrease in the calculated MCHC value (in the range of 30 to 32 g/dL) is most likely not clinically significant; however, it should be interpreted with caution in correlation with other red cell parameters and the patient's clinical condition. Rdw 12.1 11.0 - 15.0 % [facility] Platelets 279 140 - 400 Thousand/u L [facility] MPV 8.9 7.5 - 12.5 fL [facility] Neutrophils, abs 2,392 1,500 - 7,800 cells/uL [facility] Lymphocytes, abs 2,035 850 - 3,900 cells/uL [facility] Monocyte abs 515 200 - 950 cells/uL [facility] Eosinophils, abs 97 15 - 500 cells/uL [facility] Basophils, abs 61 0 - 200 cells/uL [facility] Neutrophils 46.9 % [facility] Lymphocyte pct 39.9 % [facility] Monocytes 10.1 % [facility] Eosinophils 1.9 % [facility] Basophils 1.2 % [facility] Blood 11/22/2024 12:3 0 PM CDT 11/22/2024 12:30 PM CDT us Zainab Francis CENTRAL SERVICE TECHNICIAN LAB BLOOD ORDERABLES Final Re sult [facility] [address] [place] [address] * (ABNORMAL) Basic metabolic panel (11/22/2024 12:30 PM CDT) [facility] Glucose 93 65 - 99 mg/dL [facility] Comment: Fasting reference interval BUN 11 7 [...] Chloride 95(L) 98 - 110 mmol/L Nat Candelaria-Martiza Smith CO2 29 20 - 32 mmol/L Nat Candelaria-Maritza Smith Calcium 8.9 8.6 - 10.3 mg/dL Nat Smith Blood 11/22/2024 12:3 0 PM CDT 11/22/2024 12:30 PM CDT Zainab Francis NP LAB BLOOD ORDERABLES Final Re sult [facility] [address] [place] [address] * ECG 12 lead (11/19/2024 1:48 PM CDT) Zainab Francis CENTRAL SERVICE TECHNICIAN ECG ORDERABLES Final Result * CTA Abdominal [...] Relevant to Health Maintenance Insurance [facility]ICARE [facility]ARE SUPPLEMENT MEDICARE MEDICARE [facility] MEDICARE [facility] SUPPLEMENT [facility]ICARE [facility] SUPPLEMENT Advance Directives For more information, please contact: [phone] * Full Code (Latest Code Status on File) Date Activated Date Inactivated Comments 09/20/2023 6:27 PM 09/21/2023 7:45 PM * Full Code Date Activated Date Inactivated Comments 04/24/2018 5:50 PM 04/27/2018 2:46 PM * Full Code Date Activated Date Inactivated Comments 03/24/2018 11:24 PM 03/25/2018 4:51 PM Care Teams Noodle Press Operator Relationship Specialty Start Date End Date Cheo Potts MD [address] [place] [address] PCP - General 01/03/17 Neftaly Portillo MD [address] [facility] [address] [place] [address] Consulting Physician Cardiology 11/15/18 Qi Norris MD [address] [address] Referring Physician Gastroenterology 05/10/23 Katharina Mac, [place] [address] [address] Nurse Practitioner Cardiology 11/21/23 Tree Ruiz MD PhD [address] [address] Consulting Physician Cardiology 11/21/23 [place] [address] [facility] [address] [place] [address] Nurse Practitioner Broke Man 09/18/24 [place] [address] [facility] [address] [place] [address] Consulting Physician Pain Management 11/13/24
[2025-02-18 21:16] VITALS: BP 144/99; PULSE 87; RESP 19; O2SAT 100
== END 2025-02-18 21:17 | disposition home or self-care (01) ==
LOC: ANHED 21:02
PROVIDERS: Emergency Provider Student in an Organized Health Care Education/Training Program; PCP Family Medicine
DX: T63.301A Toxic effect of unspecified spider venom, accidental (unintentional), initial encounter (principal); I48.0 Paroxysmal atrial fibrillation; I11.9 Hypertensive heart disease without heart failure; I25.10 Atherosclerotic heart disease of native coronary artery without angina pectoris; I99.9 Unspecified disorder of circulatory system; G47.33 Obstructive sleep apnea (adult) (pediatric); K21.9 Gastro-esophageal reflux disease without esophagitis; M17.0 Bilateral primary osteoarthritis of knee; F51.04 Psychophysiologic insomnia; F32.A Depression, unspecified; Z95.0 Presence of cardiac pacemaker; Z86.2 Personal history of diseases of the blood and blood-forming organs and certain disorders involving the immune mechanism; Z87.891 Personal history of nicotine dependence; Z90.49 Acquired absence of other specified parts of digestive tract; Z79.899 Other long term (current) drug therapy
CPT/HCPCS: 99283; A9270

== ENCOUNTER 2025-04-01 00:07 | Emergency (ER) | payer MEDICARE, SELFPAY ==
--- NOTE | ~2025-04-01 | XR_ITS ---
XR chest 1V portable 04/01/2025 01:18 Indication: Dyspnea. Procedure: AP portable chest Comparison: Comparison to multiple prior studies sequentially, with oldest reviewed study dated 08/05. Findings: Borderline heart size. Pacemaker leads are stable. Bibasilar airspace infiltrates are not s ignificantly changed from prior examinations, likely atelectasis/scarring.. No pneumothorax. No acute osseous abnormality. Impression: 1: Stable chronic bibasilar infiltrates, most likely atelectasis/scarring. Atypical pneumonia less fa vored. Reviewed, dictated and finalized at location B. Impression: 1: Stable chronic bibasilar infiltrates, most likely atelectasis/scarring. Atyp ical pneumonia less favored.
[2025-04-01 00:09] VITALS: BP 141/80; PULSE 61; RESP 16; TEMP 36.1; O2SAT 97
[2025-04-01 00:14] VITALS: PULSE 77
--- NOTE | 2025-04-01 00:35 | ECG_ITS ---
Test Date: 2025-04-01 00:11:09 Measurements Intervals [place] Rate: 62 P: 146 MN: 168 QRS: 227 QRSD: 160 T: 39 QT: 448 QTc: 457 Interpretive Statements AV PACED RHYTHM Electronically Signed On 04-01-2025 17:19:14 CDT by Santiago Cisneros D.O
--- OUTSIDE RECORDS SUMMARY | 2025-04-01 00:56 | XMS_ITS | Encounter Summary ---
Author Name [facility] [place] Organization [facility] [place] Address [address] [place] [id number] Support Name Relationship Address Phone JUANSHARON HICKS Next of Kin [address] [place] [address] JUANSHARON HICKS Emergency Contact [address] [place] [address] Selected Encounter This section includes the information on record at [place] for the Encounter. Date/Time Encounter Type Encounter Description Reason Provider Source Mar 31, 2025 12:30 PM OFFICE O/P EST HI 40 MIN PRIMARY CARE/MEDICINE ICD-10-CM Z00.00 Encntr for general adult medical exam w/o abnormal findings JENNYFER HANSON [facility] Encounter Template Text not used by [place] Assessments - Encounter Diagnoses This section includes the primary and secondary diagnoses documented for the Encounter. Date/Time Primary/Secondary Diagnosis Diagnosis Name Provider Source Mar 31, 2025 04:48 PM PRIMARY Encntr for general adult medical exam w/o abnormal findings JENNYFER HANSON [facility] Mar 31, 2025 04:48 PM SECONDARY Allergic rhinitis, unspecified JENNYFER HANSON [facility] Mar 31, 2025 04:48 PM SECONDARY Athscl heart disease of [place] coronary artery w/o ang pctrs JNENYFER HANSON [facility] Mar 31, 2025 04:48 PM SECONDARY Benign paroxysmal vertigo, unspecified ear JENNYFER HANSON [facility] Mar 31, 2025 04:48 PM SECONDARY Benign prostatic hyperplasia without lower urinry tract symp JENNYFER HANSON [facility] Mar 31, 2025 04:48 PM SECONDARY Disorder of arteries and arterioles, unspecified JENNYFER HANSON [facility] Mar 31, 2025 04:48 PM SECONDARY Essential (primary) hypertension JENNYFER HANSON [facility] Mar 31, 2025 04:48 PM SECONDARY Gastro-esophageal reflux disease without esophagitis JENNYFER HANSON [facility] Mar 31, 2025 04:48 PM SECONDARY Generalized anxiety disorder JENNYFER HANSON [facility] Mar 31, 2025 04:48 PM SECONDARY Heart failure, unspecified JENNYFER HANSON [facility] Mar 31, 2025 04:48 PM SECONDARY Hyperlipidemia, unspecified JENNYFER HANSON [facility] Mar 31, 2025 04:48 PM SECONDARY Obstructive sleep apnea (adult) (pediatric) JENNYFER HANSON [facility] Mar 31, 2025 04:48 PM SECONDARY Personal history of other diseases of the circulatory system JENNYFER HANSON [facility] Mar 31, 2025 04:48 PM SECONDARY Spinal stenosis, lumbar region without neurogenic andre JENNYFER HANSON [facility] Mar 31, 2025 04:48 PM SECONDARY Vitamin D deficiency, unspecified JENNYFER HANSON [facility] Plan of Treatment: Future Appointments (+ 6 months) and Future Tests (+/- 45 days) The Plan of Treatment section includes future care activities for the patient from all [place] [facility]. This section includes future appointments and future orders which are active, pending or scheduled. Future Appointments This section includes appointments that were scheduled to occur 6 months from the date of the Encounter, up to a maximum of 20 appointments. The data comes from all [place] treatment facilities. Appointment Date/Time Appointment Type Appointme nt Facility Name Sep 23, 2025 01:00 PM AMBULATORY - MEDICINE [facility] Active, Pending, and Scheduled Orders This section includes a listing of several types of active, pending, and scheduled orders, including clinic medications orders, diagnostic test orders, procedure orders and consult orders; where the start date of the order is 45 days before the date of the Encounter or 45 days after the date of theEncounter. The data comes from all [facility]. Test Date/Time Test Type Test Details Facility Name Mar 31, 2025 12:00 AM Laboratory - Chemi stry Order COMPREHENSIVE METABOLIC PANEL GREEN LI/HEP BLD/PLAS PLASMA SP [facility] Mar 31, 2025 12:00 AM Laboratory - Chemi stry Order LIPID PANEL (STL) GREEN LI/HEP BLD/PLAS PLASMA SP ONCE [facility] Mar 31, 2025 12:00 AM Laboratory - Chemi stry Order CBC BLOOD SP [facility] Mar 31, 2025 12:00 AM Laboratory - Chemi stry Order HGA1C BLOOD SP [facility] Mar 31, 2025 12:00 AM Laboratory - Chemi stry Order TSH W/ REFLEX FT4 (STL) GREEN LI-HEP PLASMA SP [facility] Mar 31, 2025 12:00 AM Laboratory - Chemi stry Order VITAMIN D, 25-HYDROXY GOLD/RED SST SERUM SP [facility] Mar 31, 2025 12:00 AM Laboratory - Chemi stry Order URINE DRUG SCREEN (STL) URINE YELLOW SP [facility] Mar 31, 2025 12:00 AM Laboratory - Chemi stry Order MICRAL/CREAT PROFILE (STL) URINE [facility] Vital Signs: All taken on the encounter date This section contains inpatient and outpatient Vital Signs collected on the date of the Encounter. Date/Time Temperature Pulse Blood Pressure Respiratory Rate SP02 Pain Height Weight Body Mass Index Source Mar 31, 2025 12:39 PM 97.9 F 68 /min 142/90 mm[Hg] 18 /min 97 % 26.772 in 176 lb 173 [facility] Social History: Smoking Status (Most current) and Tobacco Use (All prior to encounter date) This section includes the most current, and the historical, smoking and tobacco- related health factors from the [place] facility where the Encounter took place. Current Smoking Status This section includes the most current smoking, or tobacco-related health factor, from the [place] facility where the Encounter took place. Date/Time Current Smoking Status Comment Facil ity Mar 31, 2025 12:30 PM VA-TOBACCO USE FORMER CIGARETTES [facility] Tobacco Use History This section includes a history of the smoking, or tobacco-related health factors, that were collected on or before the date of the Encounter. The data comes from the [place] facility where the Encounter took place. Date/Time Smoking Status/Tobacco Use Comment F acility Mar 31, 2025 12:30 PM VA-TOBACCO USE FORMER CIGARETTES [facility] Encounter Notes: All associated encounter notes This section contains the clinical notes associated to the Encounter. Date/Time Encounter Note(s) Provider Source Mar 31, 2025 12:52 PM NURSING NOTE: LOCAL TITLE: V15 PACT FACE TO FACE NOTE [facility] STANDARD TITLE: NURSING NOTE DATE OF NOTE: MAR 31, 2025@12:52 ENTRY DATE: MAR 31, 2025@12:52:09 AUTHOR: SHAISTA LIRIANO COSIGNER: URGENCY: STATUS: COMPLETED Provider Visit: Patient Identifiers : Full Name Date of Reason for visit: New Patient Do you have a history of any of the following? (check all that apply): Heart disease, CHF, Hypertension, Other:Gerd, peptic ulcers Surgeries (type(s) and date(s)): Have you been seen by a physician, VA or private, in the last year? Yes Name and contact information for provider: Dr. Cheo Potts [phone] Have you been hospitalized or seen in an ER in the last year? Yes What hospital(s) or ERs and approximate date(s)? [facility]/ED Wirt-- spider bite Records request sent: Have you had a colonoscopy previously? Yes What location and approximate date(s)? 2019 Records request sent: Have you had a Mammogram previously? No Mode of Arrival: Ambulatory Allergy Review: CIPROFLOXACIN MAR 28, 2025 (OBSERVED) Symptoms: MUSCLE PAIN Comments: MAR 28, 2025@16:27:37 per vet reports CELECOXIB MAR 28, 2025 (OBSERVED) Symptoms: RASH Comments: MAR 28, 2025@16:27:13 per vet reports LATEX GLOVE MAR 28, 2025 (OBSERVED) Symptoms: RASH Comments: MAR 28, 2025@16:20:11 reported per vet Allergy list reviewed and remains current. Recent Vital Signs: Temperature: 97.9 F [36.6 C] (03/31/2025 12:39) Pulse: 68 (03/31/2025 12:39) Respiration: 18 (03/31/2025 12:39) B/P: 142/90 (03/31/2025 12:39) Pain: Wt: 176 lb [79.83 kg] (03/31/2025 12:39) Ht: 26.772 in [68.0 cm] (03/31/2025 12:39) BMI: 173.0 POX: 97% (03/31/2025 12:39) PERSONAL HEALTH INVENTORY Notes: No data available for PHI note titles PERSONAL HEALTH INVENTORY - MAP: No data available for PHI MAP What matters most to you in your life right now? -- 's Response: Writing and exercise at times Would you like to discuss any personal problem, family problem, alcohol use, drug use, or a mental or emotional illness? Yes [facility] is not in active care and requests to speak to [facility] Provider, warm hand-off initiated Takes med for anxiety Contact provided Primary Care phone number and encouraged to call if any questions or concerns. Review that after hours nurse line [phone] and emergency room are available 27/03 for patient use. Contact verbalized good understanding. MST Screening - V: Patient denies experiencing sexual trauma (MST). Suicide Screen - V: C-SSRS Screening Branch Suicide Severity Rating Scale (C-SSRS) screener 1. Over the past month, have you wished you were or wished you could go to sleep and not wake up? No 2. Over the past month, have you had any actual thoughts of killing yourself? No 3. Over the past month, have you been thinking about how you might do this? Response not required due to responses to other questions. 4. Over the past month, have you had these thoughts and had some intention of acting on them? Response not required due to responses to other questions. 5. Over the past month, have you started to work out or worked out the details of how to kill yourself? Response not required due to responses to other questions. 6. If yes, at any time in the past month did you intend to carry out this plan? Response not required due to responses to other questions. 7. In your lifetime, have you ever done anything, started to do anything, or prepared to do anything to end your life (for example, collected pills, obtained a gun, gave away valuables, went to the roof but didn't jump)? No 8. If YES, was this within the past 3 months? Response not required due to responses to other questions. Alcohol Use Screen (AUDIT-C) - V: Alcohol Screen: SCREEN FOR ALCOHOL (AUDIT-C) An alcohol screening test (AUDIT-C) was negative (score=1). 1. How often did you have a drink containing alcohol in the past year? Consider a drink to be a 12 ounce can or bottle of regular beer, 8 ounces of malt liquor, a 5 ounce glass of table wine, or a 1.5 ounce shot of liquor (like scotch, gin, or vodka). Monthly or less 2. How many drinks containing alcohol did you have on a typical day when you were drinking in the past year? One or two drinks 3. How often did you have six or more drinks on one occasion in the past year? Never Homelessness/Food Insecurity Screen - DI,L,N,P,PH,PS,S,U: In the past 2 months, have you been living in stable housing that you own, rent, or stay in as part of a household? Yes - Living in stable housing. Are you worried or concerned that in the next 2 months you may NOT have stable housing that you own, rent, or stay in as part of a household? No - Not worried about housing near future The [facility] reports the following: Within the past 12 months, you worried whether your food would run out before you got money to buy more. Never true Within the past 12 months, the food you bought just didn't last and you didn't have money to get more. Never true /es/ BLAZE MUNOZ,RN REGISTERED NURSE Signed: 03/31/2025 13:04 SHAISTA LIRIANO [facility] Mar 31, 2025 12:30 PM PRIMARY CARE INITI AL EVALUATION NOTE: LOCAL TITLE: PRIMARY CARE PROVIDER NEW VISIT ST STANDARD TITLE: PRIMARY CARE INITIAL EVALUATION NOTE DATE OF NOTE: MAR 31, 2025@12:30 ENTRY DATE: MAR 31, 2025@12:51:04 AUTHOR: EJ HANSON EXP COSIGNER: URGENCY: STATUS: COMPLETED Reason for visit: New patient Chief complaint: transfer meds to [place] HPI: PMH, see problem list The patient is a 84 y/o male who presents to the primary care clinic to establish care. Community providers: - PCP: Dr. Cheo [facility] - Magazine Feeder: Dr. Neftaly Portillo or Dr. Tree Ruiz (EP) - [facility] [place] - Cardiac surgeon: Dr. Dick - [facility] - Sleep medicine: Dr. Noah Wade - [facility] Stroke - Drafter Mechanical: Dr.Slik Mazariegos - [facility] - Orthopedic: Dr. Ewa Andrade or AMINA Smith - [facility] Orthopedic Surgery - Vascular Surgery: Dr. Edgar Reed - [facility] - Pain Management: Dr. Torin Almodovar - [facility] - Welding Machine Operator Electroslag: Dr. Avery Calloway - [facility] will continue care and management of his chronic health conditions with his outside specialist at this time. His goal is to receive medications through [place] pharmacy. HFrEF. TTE 12/20/2023 showed LVEF 60%, recovered from 43%, normal biventricular systolic function, proximal ascending aorta dilation 4.0 cm. Home BP readings: SBP ave 140's. Home weights: Not monitoring. [facility] report spironolactone was discontinued due to hypotension. Continues to have frequent dizziness episodes. Entresto dose was reduced in half by his tank refinisher. BP reading slightly higher than treatment goal. has scheduled follow-up visit with tank refinisher tomorrow. Declined ED eval due to complaints of dizziness and blurred vision. AFIB with cardioversion in the past. Heart monitoring showed no recurrence. No indication to continue lifelong DOAC. CAD. [facility] 02/21/2025 showed 1. Bilateral moderate-severe atherosclerotic disease in the distal lower extremities. Two-vessel runoff bilaterally. 2. No significant atherosclerotic disease or arterial stenosis involving the abdominal aorta, iliac arteries, SFAs, or popliteal arteries. Record in JL. Denies anginal complaints. Chronic LBP. X-ray L-spine completed 02/20/2025 showed Multilevel lumbar spondylosis and lower lumbar facet arthropathy. Grade 1 anterolisthesis of L4-L5 does not change with flexion or extension. Chronic bilateral knee OA. Given bilateral knee injections on 01/17/2025 and 03/04/2025 by outside orthopedic surgeon. SOURCE(S) OF HISTORY: Patient, [facility] PAST MEDICAL HISTORY: No active Problems to list. CHICKEN POX: yes SURGICAL HISTORY: Cholecystectomy 2011 Right inguinal hernia repair x2. 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 MEDICATIONS: Active and Recently Outpatient Medications (excluding Supplies): Active Non-VA Medications Status 1) Non-VA ATORVASTATIN CALCIUM 40MG TAB 20MG BY MOUTH EVERY ACTIVE EVENING Indication: FOR HIGH CHOLESTEROL 2) Non-VA AZELASTINE 137MCG/SPRAY 200D NASAL INHL 1 SPRAY ACTIVE NOSTRIL(S) TWICE A DAY 3) Non-VA BUSPIRONE HCL 10MG TAB 5MG BY MOUTH TWICE A DAY ACTIVE 4) Non-VA CODEINE 12/[id number]/5ML SOLN 30 ML BY MOUTH ACTIVE THREE TIMES A DAY NEEDED 5) Non-VA DAPAGLIFLOZIN 10MG TAB 10MG BY MOUTH ONCE A DAY ACTIVE 6) Non-VA FINASTERIDE 5MG TAB 5MG BY MOUTH ONCE A DAY ACTIVE 7) Non-VA GABAPENTIN 100MG CAP 100MG BY MOUTH THREE TIMES A DAY ACTIVE Indication: FOR NERVE PAIN 8) Non-VA OMEPRAZOLE 40MG EC CAP 40MG BY MOUTH EVERY MORNING ACTIVE BEFORE A MEAL 9) Non-VA SACUBITRIL 24MG/VALSARTAN 26MG TAB 1 TABLET BY MOUTH ACTIVE TWICE A DAY 10) Non-VA SOTALOL HCL 120MG TAB 120MG BY MOUTH TWICE A DAY ACTIVE 11) Non-VA TRAMADOL HCL 50MG TAB 1 TABLET BY MOUTH THREE TIMES A ACTIVE DAY NEEDED MEDICATION RECONCILIATION: completed REVIEW OF SYSTEMS: See HPI for further details of positive complaints. All 10 systems reviewed and otherwise negative. PHYSICAL EXAMINATION: VITALS (most recent, as listed in the electronic record): Temperature: 97.9 F [36.6 C] (03/31/2025 12:39) BP: 142/90 (03/31/2025 12:39) Pulse: 68 (03/31/2025 12:39) Resp: 18 (03/31/2025 12:39) PulsOx: 97% (03/31/2025 12:39) Pain: Weight: Measurement DT WEIGHT LB(KG)[BMI] 03/31/2025 12:39 176(79.83)[173*] PHYSICAL EXAMINATION: General appearance: well-groomed, well-nourished, in no distress HEENT: sclera/conjunctiva clear, TMs pearly tam, nares patent no secretions or inflammation, oropharynx WNL Neck: supple, no lymphadenopathy or thyromegaly Cardiovascular: RRR, no murmur, no gallop Respiratory: CTA, no wheezes, crackles or rhonchi ABD/GI: normal contour, bs + in all quads, non-tender M/S: normal gait and posture Extremities: radial/PT pulses 2+, warm, well-perfused Psych: normal affect Neuro: Alert and oriented x 3 Skin: warm, dry, normal color and texture, skin intact ASSESSMENT/PLAN: # Preventative Healthcare/Annual visit - routine healthcare, preventative screenings, and immunizations reviewed. # HFrEF/HTN: - Continue management with outside tank refinisher. Continue Entresto 24/26mg po BID, sotalol 120mg BID, dapagliflozin 10mg. Euvolemic on exam. Trend renal function and electrolytes. Continue to monitor weights at home daily, report weight increase of >3-5lbs. # PAD w/ claudication to BLE: - Continue statin. Surveillance ODALIS per private vascular surgeon. - Exercise with walking & Smoking cessation encouraged. Monitor BLE for new lesions or wounds # CAD/HLD: - Denies chest pain. Continue atorvastatin 20mg. Continue lifestyle modifications # Ascending aortic aneurysm: - See HPI for details on TTE. Monitored by outside cardiothoracic surgeon. # GERD: - EGD 09/27/2024, normal (record in [facility]). Reports symptoms are stable on omeprazole 40mg. Avoid dietary triggers # BPPV: - Stable no complaints today. # Spinal stenosis w/ BLE radiculopathy: - Continue management per outside pain management. Continue gabapentin 100mg TID and acetaminophen-codeine 300/30mg TID # Allergic Rhinitis: - Symptoms stable on azelastine nasal spray PRN # CORNEL: - Using CPAP device 7/7 nightly. - The patient has been advised that using CPAP regularly can decrease cardiac strain and help to control blood pressure. # BPH: - Reports LUTS are stable on finasteride 5mg. No change to medication today # JOHANN: - Mood is stable on Buspar 5mg BID. No change to medication regimen today - Denies SI, low risk for self-harm # Vit D Def: - Continue daily cholecalciferol 25mcg supplement, trend labs HM: AAA screen: Awaiting outside records. Colorectal cancer screening: C-scope completed in 2019. Awaiting outside records. Prostate cancer screening: Last completed: No longer recommended due to age. Denies history of prostate cancer Lung cancer screening: Eligibility: No longer recommended due to age RETURN TO CLINIC: 6 months or sooner as needed I spent 52 minutes in records review, chart review, examination/assessment of patient, education, charting and mill recorder. 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 The /caregiver was informed that we will continue to ask this screening question every 5 years. They can contact their provider/healthcare team if they have concerns about exposures and would like to be screened sooner. Printed information was offered and provided if desired. RHS Screen - VS: RHS Screen Environmental Check Screening was not completed at this time due to: Other: single HIV Screening (Routine): Patient has been offered HIV testing and has declined. I have explained that HIV testing is recommended for all adults, even if all risk factors are absent. Tobacco Use Screening - AT,DE,L,M,N,P,PH,PS,RT,S,U: The patient is a former cigarette smoker. The patient has never used other types of tobacco. COVID-19 Immunization: Patient received a prior dose of the Moderna Monovalent vaccine. Documented: COVID-19 (MODERNA), MRNA, LNP-S, PF, 50 MCG/0.5 ML (AGES 12+ YEARS) Historical Date Administered: Jun 13, 2023 Information Source: FROM PATIENT'S WRITTEN RECORD Patient received a prior dose of the Moderna Bivalent booster. Documented: COVID-19 (MODERNA), MRNA, LNP-S, BIVALENT, PF, 50 MCG/0.5 ML OR 25MCG/0.25 ML DOSE Historical Date Administered: May 16, 2022 Series: Series 1 Information Source: FROM PATIENT'S WRITTEN RECORD Moderna Patient received a prior dose of the Moderna COVID-19 Vaccine. Documented: COVID-19 (MODERNA), MRNA, LNP-S, PF, 100 MCG/0.5ML DOSE OR 50 MCG/0.25ML DOSE Historical Date Administered: Oct 14, 2020 Series: Series 1 Information Source: FROM PATIENT'S WRITTEN RECORD Patient received a prior dose of the Moderna COVID-19 Vaccine. Documented: COVID-19 (MODERNA), MRNA, LNP-S, PF, 100 MCG/0.5ML DOSE OR 50 MCG/0.25ML DOSE Historical Date Administered: Jul 04, 2021 Series: Series 2 Information Source: FROM PATIENT'S WRITTEN RECORD Patient received a prior dose of the Moderna COVID-19 Vaccine. Documented: COVID-19 (MODERNA), MRNA, LNP-S, PF, 100 MCG/0.5ML DOSE OR 50 MCG/0.25ML DOSE Historical Date Administered: Dec 04, 2021 Information Source: FROM PATIENT'S WRITTEN RECORD Herpes Zoster (Shingles) Vaccine - L,N,P,PH,U: Prior Herpes Zoster vaccination Herpes zoster (shingles) vaccine given previously - written records available Zoster Recombinant (Shingrix): Documented: ZOSTER RECOMBINANT Historical Date Administered: Sep 11, 2022 Series: Series 1 Information Source: FROM PATIENT'S WRITTEN RECORD Documented: ZOSTER RECOMBINANT Historical Date Administered: January 15, 2023 Series: Series 2 Information Source: FROM PATIENT'S WRITTEN RECORD Pneumococcal Conjugate Vaccine (PCV15/PCV20/PCV21) - L,N,P,PH,U: Pneumococcal vaccine given previously - written records available Documented: PNEUMOCOCCAL CONJUGATE PCV 13 Historical Date Administered: Apr 30, 2023 Information Source: FROM PATIENT'S WRITTEN RECORD Tdap Immunization - L,N,P,PH,U: Td/Tdap given previously - written records available The patient has previously received the Tetanus, Diphtheria, Pertussis vaccine (Tdap). Documented: TDAP Historical Date Administered: Feb 26, 2009 Information Source: FROM PATIENT'S WRITTEN RECORD HTN Assess for Elevated BP>=140/90 - N,P,PH: The patient declines the recommended changes in medications to improve blood pressure control. Comment: Prefers to speak with his tank refinisher tomorrow regarding medication adjustment. /hank/ EJ HANSON, MSN, AGNP-C NURSE PRACTITIONER Signed: 03/31/2025 16:51 EJ HANSON [facility]
--- OUTSIDE RECORDS SUMMARY | 2025-04-01 00:56 | XMS_ITS | Clinical Summary ---
Author Organization [facility] [email or web address] Address [address] [place] [address] Care Team Providers Care Molder Trimmer Name Role Phone Cheo Potts MD Primary Care Provider [phone] Source Comments [facility], formerly [facility],non-owned Affiliates and Associated Physician Practices is amultiple site organization consisting of ambulatory clinics and hospital sitesin [place], [place], [place] and [place]. This disclosure is being madepursuant to the Care Everywhere program and may not contain all information available regarding this patient. 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 Chronic idiopathic constipation 07/16/2021 Hepatomegaly 07/16/2021 History of alcohol abuse 07/16/2021 PAD (peripheral artery disease) 02/26/2019 Abnormal EKG 01/30/2019 Overview (12/17/2024): Added automatically from request for surgery [id number] Sick sinus syndrome 04/20/2018 Overview (12/17/2024): Added automatically from request for surgery [id number] Last Assessment & Plan: Cardiac resynchronization defibrillator [...] (12/17/2024): Added automatically from request for surgery [id number] Dizziness and giddiness 01/10/2017 High risk medication [...] Date Resolved Date Impacted cerumen 03/24/2017 12/31/2024 Social History Tobacco Use Types Packs/Day Years Used Date Smoking Tobacco: Former Cigarettes Q uit: 09/04/1971 Tobacco Cessation:Counseling Given: Not Answered Alcohol Use Standard Drinks/Week Comments No 0 (1 standard drink = 0.6 oz pur e alcohol) Sex and Gender Information Value Date Recorded Sex Assigned at Not on file Legal Sex Male 6:51 PM ACAD[employer]IC DIRECT[employer] Gender Identity Not on file Sexual Orientation Not on file Last Filed Vital Signs Vital Sign Reading Time Taken Comments Blood Pressure 120/75 12/17/2024 12:33 PM CDT Pulse 72 12/17/2024 12:33 PM CDT Temperature 36.9 C (98.4 F) 12/17/2024 12:33 PM CDT Respiratory Rate 11 09/27/2024 3:15 PM 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 DIRECTOR Oxygen Saturation 98% 12/17/2024 12:33 PM CDT Inhaled Oxygen Concentration - - Weight 83.1 kg (183 lb 3.2 oz) 12/17/2024 12:33 PM CDT Height 172.7 cm (5' 8) 12/17/2024 12:33 PM CDT Body Mass Index 27.86 12/17/2024 12:33 PM CDT Plan of Treatment Upcoming Encounters Date Type Department Care Team (Late st Contact Info) Description 06/19/2025 12:30 PM CDT Office Visit [facility] [address] [place] [id number] Marlene Gay PA-C [address] [place] [id number] Health Maintenance Due Date Last Done Comments MEDICARE AWV 12 MONTHS 1942 DTAP/TDAP/TD VACCINES (1 - Tdap) 1961 PNEUMOCOCCAL VACCINE 50+ (1 of 2 - PCV) 1961 ZOSTER VACCINE (1 of 2) 1992 Respiratory Syncytial Virus (RSV) Vaccine Pt: or over 60 yrs (1 - 1-dose 75+ series) 2017 COVID-19 VACCINE (2 - season) 2024 10/14/2020 DEPRESSION SCREENING 09/04/2024 INFLUENZA VACCINE (#1) 2025 , 06/12/2020, 06/15/2019, Additional history exists HEPATITIS B [...] prior to your last dose Insurance MEDICARE [employer] MEDICARE [facility] Care Teams Molder Trimmer Relationship Specialty Start Date End Date Cheo Potts MD [address] [place] [address] PCP - General 01/07/16
--- OUTSIDE RECORDS SUMMARY | 2025-04-01 00:56 | XMS_ITS | Clinical Summary ---
Author Organization [facility] Address [address] [place] [address] Care Team Providers Care Jig Hand Name Role Phone Cheo Potts MD Primary Care Provider Neftaly Portillo MD Unavailable [phone] Qi Norris MD Unavailable [phone] Katharina Mac DYE AUTOMATION OPERATOR Unavailable Tree Ruiz MD PhD Unavailable [phone] Oanh Trevizo DYE AUTOMATION OPERATOR Unavailable Torin Almodovar MD Unavailable Allergies Active Allergy Reactions Criticality Noted Date Comments Celecoxib Other (See comments) Low Altered depth perception Ciprofloxacin Other (See comments) Low 12/06/2017 FEELS BAD Latex Rash,Itching Medium 04/11/2017 Medications calcium carbonate-vitamin D3 1,500 mg (600mg elemental) -800 unit per tabletIndications :Hypocalcemia Prevention,Preven tion of Vitamin D Deficiency 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 mouth yacht builder 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 Active coenzyme Q10 200 mg capsuleIndication s:supplement Take 1 capsule (200 mg total) by mouth nightly Active magnesium oxide 200 mg tablet,chewableIn dications:supplem ent Take 200 mg by mouth yacht builder 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 Active polyethylene glycol (MIRALAX) 17 gram packetIndications :constipation Take 1 packet (17 g total) by mouth nightly Active multivitamin no.44-vit D3-K 1,000-800 unit-mcg capsuleIndication s:Mineral Deficiency Prevention,Vitami n Deficiency Prevention 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 mouth yacht builder 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 Active azelastine (ASTELIN) 137 mcg (0.1 %) nasal sprayIndications: Seasonal Allergic Rhinitis Administer 2 sprays into each nostril nightly 09/17/19 21 Active fluocinolone in oil (DermOtic) 0.01 % dropsIndications: ear inflammation Administer 5 drops into each ear daily as needed (ear inflammation) 03/10/20 21 Active prochlorperazine (COMPAZINE) 10 mg tabletIndications :Nausea and Vomiting Take 1 tablet (10 mg total) by mouth every 6 (six) hours as needed for nausea or vomiting for nausea 05/05/20 22 Active finasteride (PROSCAR) 5 mg tabletIndications :benign prostatic hyperplasia with lower urinary tract sx Take 1 tablet (5 mg total) by mouth yacht builder 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 06/16/20 22 Active cholecalciferol 400 unit capsuleIndication s:supplement Take 200 Units by mouth every other day Active loratadine 10 mg capsuleIndication s:Allergic Rhinitis Take 10 mg by mouth every evening Active ketoconazole (NIZORAL) 2 % cream 10/05/19 24 Active mupirocin (BACTROBAN) 2 % ointment daily as needed 10/03/19 24 Active triamcinolone (KENALOG) 0.1 % cream 10/05/19 24 Active Anucort-HC 25 mg suppository as needed 03/11/20 24 Active atorvastatin (LIPITOR) 20 mg tablet Take 1 tablet (20 mg total) by mouth nightly 90 tablet 3 08/19/20 24 025 Active sacubitriL-valsar laguna (ENTRESTO) 24-26 mg tabletIndications :chronic heart failure 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 mouth 2 (two) times a day 28 tablet 08/23/20 24 Active turmeric root extract 500 mg capsule Take by mouth Active omeprazole (PriLOSEC) 40 mg capsule Take 1 capsule (40 mg total) by mouth daily 09/17/19 25 Active gabapentin (NEURONTIN) 100 mg capsuleIndication s:Restless [...] 180 tablet 3 10/30/19 25 026 Active dapagliflozin propanediol (FARXIGA) 10 mg tablet Take 1 tablet (10 mg total) by mouth daily 90 tablet 3 03/21/20 25 026 Active acetaminophen-cod eine (TYLENOL with CODEINE #3) 300-30 mg per tabletIndications :Spinal stenosis of lumbar region without neurogenic claudication,Neck pain, chronic,Lumbar facet arthropathy,Lumba r radiculopathy 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 mouth 3 (three) times a day as needed for pain 90 tablet 2 04/02/20 25 Active acetaminophen (TYLENOL ARTHRITIS PAIN ORAL) Take 2 tablets by mouth nightly 025 Discontinu ed(Therapy completed) dapagliflozin propanediol (FARXIGA) 10 mg tablet Take 1 tablet (10 mg total) by mouth daily 90 tablet 3 09/11/19 25 025 Discontinu ed(Reorder ) acetaminophen-cod eine (TYLENOL with CODEINE #3) 300-30 mg per tabletIndications :Lumbar radiculopathy,DDD (degenerative disc disease), lumbar,Lumbar stenosis with neurogenic claudication,Spin al stenosis of lumbar region without neurogenic claudication,Lumb ar facet arthropathy 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 mouth every 8 (eight) hours as needed for pain 90 tablet 1 02/01/20 25 025 Discontinu ed(Reorder ) acetaminophen-cod eine (TYLENOL with CODEINE #3) 300-30 mg per tabletIndications :Lumbar radiculopathy,DDD (degenerative disc disease), lumbar,Lumbar stenosis with neurogenic claudication,Spin al stenosis of lumbar region without neurogenic claudication,Lumb ar facet arthropathy 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 mouth every 8 (eight) hours as needed for pain for up to 7 days 21 tablet 03/13/20 25 025 Hospital, Clinic, or Other Facility Administered Medication Ordered Dose Route Frequency Start Date End Date Status perflutren protein-a (OPTISON) 3 mL in sodium chloride 0.9% 8 mL syringe 1 - 8 mL IV Once in imaging 11/25/2024 Active BUPivacaine HCl (MARCAINE) 0.5 % (5 mg/mL) injection 4 mLIndications:Primar y osteoarthritis of both knees 4 mL OTHER One-Time Injection 03/04/2025 5 Ended BUPivacaine HCl (MARCAINE) 0.5 % (5 mg/mL) injection 4 mLIndications:Primar y osteoarthritis of both knees 4 mL OTHER One-Time Injection 03/04/2025 5 Ended triamcinolone (KENALOG) 40 mg/mL injection 80 mgIndications:Primar y osteoarthritis of both knees 80 mg intra-artic One-Time Injection 03/04/2025 5 Ended triamcinolone (KENALOG) 40 mg/mL injection 80 mgIndications:Primar y osteoarthritis of both knees 80 mg intra-artic One-Time Injection 03/04/2025 5 Ended Active Problems Problem Noted Date Diagnosed Date Neck pain, chronic 02/07/2024 Presence of Watchman left atrial appendage closu re device 09/20/2023 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 06/13/2023 GI bleeding 02/08/2023 Lumbar facet arthropathy 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 3 Lumbar radiculopathy 09/13/2022 Chronic midline low back pain without sciatica 0 09/13/2022 DDD (degenerative disc disease), lumbar 09/13/19 23 Sacroiliitis 09/13/2022 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 Chronic idiopathic constipation 07/16/2021 Hepatomegaly 07/16/2021 History of alcohol abuse 07/16/2021 PAD (peripheral artery disease) 02/26/2019 Coronary artery disease invo lving [place] coronary artery of [place] heart without angina pectoris 01/30/2019 Overview (01/30/2019): Added automatically from request for surgery [id number] Abnormal EKG 01/30/2019 Overview (01/30/2019): Added automatically from request for surgery [id number] Sick sinus syndrome 04/20/2018 Overview (04/20/2018): Added automatically from request for surgery [id number] Assessment & Plan (04/27/2018 8:59 AM CDT): [...] PM CDT): - mild 3v dz on [facility] 03/2015 - ct ASA, statin Dizziness 01/10/2017 [...] Encounters Date Type Department Care Team Description 03/31/2025 Telephone [facility] Cardiology [address]th [place] [address] [place] [address] Neftaly Portillo MD 03/31/2025 Telephone [facility] Cardiology [facility] [facility] [address] [facility] 8th [place] [address] [place] [address] Neftaly Portillo MD Dizziness 03/19/2025 11:15 AM CDT Office Visit [facility] Pulmonology [address] [place] [address] Yasmeen Foley MD Dyspnea and respiratory abnormalities (Primary Dx); Atelectasis 03/12/2025 Telephone [facility] [address] [place] [address] StellaMarlene durham Curt 03/04/2025 11:45 AM CDT Office Visit [facility] Orthopaedic Surgery [address] 2nd [address] [place] [address] Bell Smith PA Primary osteoarthritis of both knees (Primary Dx) 02/21/2025 10:50 AM CDT - 02/21/2025 11:55 AM CDT Surgery [address] [place] [address] Neftaly Portillo MD LEFT HEART CATHETERIZATION WITH CORONARY ANGIOGRAPHY AND WITH OR WITHOUT LEFT VENTRICULOGRAM [id number] 02/21/2025 10:50 AM CDT - 02/21/2025 11:59 PM CDT Hospital Encounter [address] [place] [address] Neftaly Portillo MD Chest pain, unspecified type; Coronary artery disease of [place] artery of [place] heart with stable angina pectoris; Dizziness Discharge Disposition: Discharge to home or self care 02/20/2025 1:15 PM CDT Office Visit [facility] Neurosurgery [address] [facility] [facility] 6th [place] [address] [place] [address] Ewa Nath NP Lumbar stenosis with neurogenic claudication (Primary Dx); Lumbar spondylosis 02/20/2025 12:23 PM CDT - 02/20/2025 11:59 PM CDT Hospital Encounter [facility] [address] [place], [place] [id number] Lumbar spondylosis; Lumbar stenosis with neurogenic claudication Discharge Disposition: Discharge to home or self care 02/20/2025 Telephone [facility] Cardiology [address] [facility] [facility] 8th [place] [address] [place] [address] Neftaly Portillo MD Procedure question/concern (cath) 02/17/2025 Results Follow-Up [facility] Cardiology [address] [facility] [address] [place] [address] Mae Villanueva RMA CBC with auto differential, Basic metabolic panel 01/30/2025 Orders Only [facility] Neurosurgery [facility] [facility] 6th [place] [address] [place] [address] Ewa Nath NP Lumbar spondylosis (Primary Dx); Lumbar stenosis with neurogenic claudication 01/29/2025 Telephone [facility] Neurosurgery [facility] [facility] 6th [place] [address] [place] [address] Ewa Nath NP 01/17/2025 2:30 PM CDT Office Visit [facility] Orthopaedic Surgery [address] [facility] 2[address] [place] [address] Bell Smith PA Primary osteoarthritis of both knees (Primary Dx) 01/17/2025 Telephone [facility] Neuro Sleep [address] [facility] [facility] [address] [place] [address] Rin Knapp RN DME order 01/16/2025 Orders Only [facility] Stroke [address] 6th [address] [place] [address] Mauro Zamora MD CORNEL (obstructive sleep apnea) (Primary Dx) 01/16/2025 Telephone [facility] Neuro Sleep [address] 6th [address] [place] [address] Rin Knapp RN 01/08/2025 Patient Message [facility] [id number] [place] [address] Torin Almodovar MD PT 01/07/2025 12:45 PM CDT - 01/07/2025 11:59 PM CDT Hospital Encounter [facility] [address] [place] [address] Oanh Trevizo NP Spinal stenosis of lumbar region without neurogenic claudication (Primary Dx); Lumbar radiculopathy; Primary hypertension Discharge Disposition: Discharge to home or self care 01/06/2025 Telephone [facility] Cardiology [facility] 8th [place] [address] [place] [address] Neftaly Portillo MD Dizziness; Chest Pain; Procedure (LHC) 01/01/2025 Telephone [facility] Cardiology [facility] Medicine 8th [place] [address] [place] [address] Neftaly Portillo MD Medical Records Request 12/31/2024 Telephone [facility] [place] [address] [place] [address] Michelle Elliott Med Management (Tramadol after seizure) from Last 3 Months Immunizations Immunization Administration [...] ASPIRATION TMJ LEFT 07/18/2023 Left BACK SURGERY CARDIAC CATHETERIZATION 02/21/2025 N/A Procedure: LEFT HEART CATHETERIZATION WITH CORONARY ANGIOGRAPHY AND WITH OR WITHOUT LEFT VENTRICULOGRAM [id number]; Surgeon: Neftaly Portillo MD; 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; Service: Cardiovascular; Laterality: N/A; Medical History Medical History Date Comments Cardiomyopathy [...] Heart failure (HCC) Awareness under anesthesia telma diggs Family History Medical History Relation Name Comments [...] Used Date Smoking Tobacco: Former Cigarettes 1 1971 Passive Smoke Exposure: Past Smokeless Tobacco: Never Tobacco Cessation:Counseling Given: Not Answered Alcohol Use Standard Drinks/Week Comments Yes 7 (1 standard drink = 0.6 oz pur e alcohol) [facility] [employer] Answer Date Recorded In the past 12 months has e [employer], gas, oil, or water [employer] threatened to shut off services in your [...] often do you attend chur ch or mormon services? Never 09/22/2023 Do you belong to any clubs o r organizations such as catholic groups, unions, fraternal or athletic groups, or [...] making you feel afraid or unsafe? 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 Gender Identity Male 11/05/2020 12:05 PM GIFT SHOP ASSISTANT Sexual Orientation Not on file Obstetrics History Last Filed Vital Signs Vital Sign Reading Time Taken Comments Blood Pressure 128/86 03/19/2025 11:28 AM CDT Pulse 90 03/19/2025 11:28 AM CDT Temperature 36.1 C (97 F) 03/19/2025 11:28 AM CDT Respiratory Rate 18 03/19/2025 11:28 AM CDT Oxygen Saturation 97% 03/19/2025 11:28 AM CDT Inhaled Oxygen Concentration - - Weight 81.2 kg (179 lb) 03/19/2025 11:28 AM CDT Height 172.7 cm (5' 7.99) 03/19/2025 11:28 AM C DT Body Mass Index 27.22 03/19/2025 11:28 AM CDT Plan of Treatment Health Maintenance [...] season) 2024 07/04/2021, 10/14/2020 Influenza Vaccine (#1) 2025 3, 05/31/2021, 05/31/2021, Additional history exists Fall Risk Assessment 02/21/2026 02/21/2025 Abdominal Aortic Aneurysm (A AA) Screen Completed 05/18/2021, 02/18/2019 Medical Devices Implanted Type Area Hospitality Housekeeper Device Identifier Shelf Expiration Date Model / Serial / Lot Medtronic Cardiac Rhythm Mgmt 5076-52 Capsurefix Novus 6.2fr 2mm 52cm Bipolar Screw In Implantable Latex Free - [id number] - [id number] Implanted:Qty: 1 on 04/24/2018 by Osmany Pina MD at [facility] Pacemaker Left: Heart Medtronic Cardiac Rhythm Mgmt [id number] 03/08/2020 5076-52 / [id number] / Medtronic Cardiac Rhythm Mgmt 5076-45 Capsurefix Novus Od6.2 Fr; Odsec2 Mm L45 Cm Bipolar; Screw In; Im - [id number] - [id number] Implanted:Qty: 1 on 04/24/2018 by Osmany Pina MD at [facility] Pacemaker Left: Heart Medtronic Cardiac Rhythm Mgmt [id number] 02/13/2020 5076-45 / [id number] / Medtronic Inc [id number] Attain Performa Starfix 5.3fr 5.1fr 88cm Quadripolar Is4-Llll Latex Free - [id number] - [id number] Implanted:Qty: 1 on 04/24/2018 by Osmany Pina MD at [facility] Pacemaker Left: Heart Medtronic Inc 02/15/2020 [id number] / [id number] / Pacemaker Cardiac 11mm 19.9cu Cm 46.5x59mm Rain Surescan - [id number] - [id number] Implanted:Qty: 1 on 04/24/2018 by Osmany Pina MD at [facility] Pacemaker Left: Chest Medtronic Inc 06/17/2019 [id number] / [id number] / [employer] Device Clsr Perclose Prostyle Sut-Mediatd Closure-Repair Sys 65385-10 - [id number] - [id number] Implanted:Qty: 1 on 09/20/2023 by Antoine Nelson MD at [facility] Vascular Closure Device N/A: Femoral Vein [employer] 05/04/2025 01124-71 / [id number] / [id number] Procedures Procedure Name Priority Date/Time Associated Diagnosis Comments MT ARTHROCENTESIS ASPIR&/INJ MAJOR JT/BURSA W/O US Routine 03/04/2025 11:45 AM CDT Primary osteoarthritis of both knees LEFT HEART CATHETERIZATION WITH CORONARY ANGIOGRAPHY AND WITH AND WITHOUT LEFT VENTRICULOGRAM Routine 02/21/2025 12:06 PM CDT Chest pain, unspecified type Coronary artery disease of [place] artery of [place] heart with stable angina pectoris Dizziness XR LUMBAR SPINE AP LAT FLEX EX Schedule Routine, Read Routine (OP Routine) 02/20/2025 12:32 PM CDT Lumbar spondylosis Lumbar stenosis with neurogenic claudication BASIC METABOLIC PANEL Routine 02/13/2025 11:56 AM CDT Dizziness Chest pain, unspecified type Primary hypertension Coronary artery disease involving [place] coronary artery of [place] heart without angina pectoris CBC WITH AUTO DIFFERENTIAL Routine 02/13/2025 11:56 AM CDT Dizziness Chest pain, unspecified type Primary hypertension Coronary artery disease involving [place] coronary artery of [place] heart without angina pectoris MT ARTHROCENTESIS ASPIR&/INJ MAJOR JT/BURSA W/O US Routine 01/17/2025 2:30 PM CDT Primary osteoarthritis of both knees CTA ABDOMINAL AORTA AND BILATERAL ILIOFEMORAL RUNOFF Schedule Routine, Read Routine (OP Routine) 02/18/2019 3:29 PM CDT Abnormal ankle brachial index (ODALIS) Pain in both lower extremities from Last 3 Months or Most Recently Relevant to Health Maintenance Results * MT ARTHROCENTESIS ASPIR&/INJ MAJOR JT/BURSA W/O US (03/04/2025 11:45 AM CDT) Narrative Bell Smith PA - 03/04/2025 11:45 AM CDT Bell Smith PA 03/04/2025 1:05 PM Large Joint Injection: bilateral knee Performed [...] Large Joint Injection: 4 mL BUPivacaine HCl 0.5 % (5 mg/mL); 80 mg triamcinolone 40 mg/mL Medications Left Large Joint Injection: 4 mL BUPivacaine HCl 0.5 % (5 mg/mL); 80 mg triamcinolone 40 mg/mL Patient tolerance: Patient tolerated the procedure well with no immediate complications us Bell [facility] IN CLINIC/BEDSIDE OR DERABLES Final Result * LEFT HEART CATHETERIZATION WITH CORONARY ANGIOGRAPHY AND WITH AND WITHOUT LEFT VENTRICULOGRAM (02/21/2025 12:06 PM CDT) Anatomical Region Laterality Modality X-Ray Angiograph y Impressions 02/21/2025 6:13 PM CDT 1. Bilateral moderate-severe atherosclerotic disease in the distal lower extremities. Two-vessel runoff bilaterally. 2. No significant atherosclerotic disease or arterial stenosis involving the abdominal aorta, iliac arteries, SFAs, or popliteal arteries. NM Stress Test 02/14/24 Images Interpretation Gated Spect imaging reveals a [...] study from 11/25/2021, the current study reveals NSC. Carotid Doppler 06/10/22 Conclusions: 1. Normal bilateral internal carotid arteries, no evidence of plaque. 2. No evidence of hemodynamically significant stenosis in the common carotid artery bilaterally. 3. Normal, antegrade flow is noted in bilateral vertebral arteries. Previous Studies: Previous carotid ultrasound on 02/12/19- R-<50% L-<50%, antegrade vertebral arteries bilaterally. Echo 12/20/23 SUMMARY: Proximal ascending aorta callie 4.0 cm, Aortic sinus callie 4.7 cm. Trileaflet aortic valve. LA is normal. Normal RV cavity size. LV cavity size is normal. Normal LV wall thickness/mass. Normal Inferior vena cava. Normal aorta.. Mild AR, Mild MR, no , no MS, mild TV regurgitation, normal PV. Diastolic function: Impaired Relaxation.LVEF 60%. Near Normal global LV Myocardial longitudinal function and LV strain pattern. Implantable Cardiac Device 09/20/2023 JONATHAN anatomy(anterior Chicken Wing) that does not allow for stable positioning of LAAOD Implanted Hardware: None Device Check 06/21/24 Interpretation Summary: Battery and Leads (BL) Capture threshold chronically elevated --- LV threshold 3.25/0.4. Trend shows chronically elevated LV threshold measurements. LV output is programmed Adaptive, currently 5.5/0.4. Normal parameters noted on battery and lead(s) --- 1.2 yrs remaining longevity (implanted 2017). Lead impedance, sensing, and RA/RV threshold trends stable and appropriate. No short V-V intervals. Presenting Rhythm (MT) Atrial Pacing-BiVentricular Pacing (AP-BiVP) --- AP/BVP 60 bpm. Arrhythmic events (AE) No new arrhythmic events in monitoring period --- Since 04/24/24: No AHR or VHR episodes. 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 Battery status ok (estimated 1.2 years remaining). AP 65.8%. SALESPERSON TERRAZZO TILES 99.6%. No AHR or VHR episodes. Stable device function; no changes recommended. Pt to keep scheduled follow up with Johnna Navarrete NP on 10/30/24. Cardiac Cath 02/22/19 Selective Coronary Arteriography: Left Coronary System: 1. The left main coronary artery is patent ,25% ostial stenosis noted. No gradient across LMCA. 2. The circumflex coronary artery is non dominant vessel. , large bifurcating marginal branch have mild atherosclerotic plaque , slow flow noted across vessel with mild ectasia. 3. The right coronary artery is originating from the floor of right cusp ectatic with slow flow mildly atherosclerotic ( 25%) plaque noted. PDA and PL:V branches patent. 4. The Left Anterior descending artery is patent ,ectatic slow flow flow noted.through out the vessel with mid section 40% stenosed. DIAGNOSTIC IMPRESSIONS: 1. Mild diffuse atherosclerotic CAD with all vessels are calcified 2. No gradient across aortic valve. 3. The left ventricular end-diastolic pressure is 12-14mmHg. I reviewed the following labs and discussed with the patient. RECOMMENDATIONS: Diagnoses and all orders for this visit: Coronary artery disease (Primary) Cath in 2019 showed mild diffuse atherosclerotic disease. His EKG showed 100% av paced rhythm. He continue to have angina , on maximum medical therapy. pt understand the risk and benefit of the cardiac cath procedure including risk of complications from sedation ,contrast induced allergic reaction and renal dysfunction, myocardial infarction ,stroke, embolic phenomenon, bleeding , infection ,dissection, perforation or occlusion of vessel, Dyslipidemia He is on Atorvastatin 40 mg a day, tolerating well. No muscle or body aches noted. He is taking CoQ10- 200 mg a day. Left ventricular systolic dysfunction His Echo showed mild LVEF 49%. He is on Lasix 20 mg a day. He is on Entresto to 24/26 mg twice a day. Low salt diet to continue. He is on Farxiga 10 mg a day and Spironolactone 25 mg a day. He will take the Lasix every other day. Will get an echocardiogram with Doppler to follow-up EF. Paroxysmal atrial fibrillation He is in sinus rhythm at present. Continue Sotalol 120 mg twice a day. He is taking Eliquis 5 mg twice a day for anticoagulation. He is followed by Dr Ruiz. He is anticoagulated with Eliquis. His Watchman procedure was unsuccessful. Adjusted Risk of Stroke for 4 [id number] Scores in Non valvular Atrial Fib [id number] acronym[2] Score [id number] acronym Unadjusted ischemic stroke rate (% per year)* Congestive HF 1 0 0.2 Hypertension 1 1 0.6 Age >=75 years 2 2 2.2 Diabetes mellitus 1 3 3.2 Stroke/TIA/TE 2 4 4.8 Vascular disease (prior NC, PAD, or aortic plaque) 1 5 7.2 Age 65 to 74 years 1 6 9.7 Sex category (ie, female sex) 1 7 11.2 Maximum score 9 8 10.8 9 12.2 Carotid Artery disease : No history see history of TIAs or stroke noted. Get a carotid Doppler. Sleep Apnea syndrome : He is on CPAP. He is using humidifier at home. Hyponatremia; Recovered etiology unclear ? Pancreatitis or nutritional. He has recovered and understand to watch serum sodium periodically. It could be SIADH. Ascending aortic aneurysm; today echocardiogram shows ascending aorta diameter 4.7 cm. He is followed by CT surgery . He is on medical management. GI Bleeding ; he is on Eliquis and aspirin at present , no GI bleeding noted currently. Getting a Watchman procedure. A Detailed consent was obtained. The risk and benefit of the procedure were discussed with the patient. The patient is undergoing left heart catheterization. Pt labs were reviewed prior to the procedure. PROCEDURE: 1. The patient was brought to the cardiac catheterization laboratory after informed consent. 2. I provided direct face to face monitoring for conscious sedation administered by independently trained nurse using 12.5 mcg of fentanyl and 0.5 mg of versed. I directly observed the patient for 120 minutes. 3. The right radial artery was prepped and draped under aseptic condition. 4. 2% Lidocaine was used for local anesthesia. 5. A 5F Winona sheath was placed in the right radial artery using a short Cook needle with the modified Seldinger technique without any difficulty. 6. A 5F / 110-cm long Jaylon catheter 3.5 was placed over the Versacore wire in the ascending aorta without any difficulty. 6. Left ventricular hemodynamics were obtained and pullback pressure was obtained. 7. This catheter was used to cannulate the left coronary artery and images were obtained in different views. Same catheter was used to cannulate the right coronary artery without difficulty and images obtained in different views. 8. This catheter was removed over the versacore/ J-wire. No complications noted. 9. A TR-Band was applied to achieve patent hemostasis. 10. Medication used NTG 200 mcg + Verapamil 2.5 mg intraarterially and 5000 unit of heparin.given in Ascending aorta. RESULTS: Left Heart Hemodynamics: The left ventricular end-diastolic pressure is 3-6 mmHg. There is no gradient on pull back across the aortic valve. Angiography: Left Ventriculogram:Not done. Selective Coronary Arteriography: Left Coronary System: 1. The left main coronary artery is patent and markedly ectatic.. 2. The circumflex coronary artery is nondominant vessel it is moderately ectatic in proximal mid and distal section ascending into the posterolateral branch. Blood flow is slow. But patent. With luminal irregularities. Marginal branches are very small but patent.. 3. The right coronary artery is dominant vessel. Proximal mid distal RCA is moderately ectatic slow flow noted ectasia standing into the PDA and posterior LV branches. Luminal irregularity noted throughout the course.. 4. Th Left Anterior descending artery; proximal mid and distal LAD is patent moderate ectasia with slow flow noted diffuse luminal irregularities noted. Diagonal and septal branches are patent and small caliber. DIAGNOSTIC IMPRESSIONS: 1. Significant moderate level of ectasia noted in all 3 major branches including left main coronary artery. 2. No gradient across aortic valve 3. The left ventricular end-diastolic pressure is 3-6 mmHg. THERAPEUTIC RECOMMENDATIONS: Medical management. The patient will follow-up with me in two- three weeks. I have discussed the findings in detail with the family. No complications were noted. Right radial artery arteriotomy site instructions were given to the patient. No complications were Noted. Pt remained hemodynamically stable. [id number] I personally performed or supervised the procedure reported above and was physically present during the entire procedure. This note was written using a voice recognition system hardware device. Please note there may be variance in spelling, regi, and syntax because of the voice recognition system hardware. Therefore, not every sentence has been reviewed in its entirety. If there are any concerns about verbage above please contact me at [phone]. Narrative 02/21/2025 6:13 PM CDT Table formatting from the original result was not included. CARDIAC CATHETERIZATION Patient: Donald Fatima [id number] : 1940 Date of Service: 02/21/2025 FINAL PATIENT CLINICAL PROFILE: Donald Fatima is a pleasant 84 y.o. male who presents with: 1. CAD. He has three-vessel coronary artery disease with moderate LV systolic dysfunction, LVEF is 42%. He had a nuclear stress test in February 2017. He had small mild irreversible perfusion defect in the inferoapical wall. Cath 02/22/2019 . Mild diffuse atherosclerotic CAD with all vessels are calcified 2. Dyslipidemia 3. Tortuous aorta more like ectasia. 4. Paroxysmal atrial fibrillation. He had ablation done in 2006. S/P pacemaker implantation in April 2018. History of PVCs prior to pacemaker implantation. He is scheduled for Watchman procedure tomorrow. 5. Sleep Apnea Syndrome : Recently diagnosed with CORNEL On CPAP . 6. Mild LV systolic dysfunction LVEF 49%. History of Presenting Illness He underwent watchman procedure and it was unsuccessful. He has a history of ascending aorta aneurysm which has been stable and has been followed by Dr. Dorothea Dick MD CT surgery. He stated he had a history of GI bleed he has been followed by Dr. Qi Norris MD at [facility] he stated he is off aspirin and Eliquis as per his instructions. He states he is getting another GI endoscopy. His last GI bleed was a year ago. He stated he has longstanding history of hyponatremia even when he was young he was eating a lot of salt and drinking lot of fluids to keep up his blood pressure. He as no swelling in the lower extremity. He would episode of chest pain last for few seconds only. He stated he is also eating salt as he gets hyponatremic he has no swelling in the lower extremities. No cough noted. Orthopnea noted no history see history of COVID-19 infection. No loss of taste or smell noted. No syncope noted. No weakness of any part of the body noted. No bowel or bladder symptoms noted. He is nauseated feeling. No abdominal pain he had mild diarrhea. 02/03/2025 He came for a left heart cath, continue to have angina, He is getting a left heart cath reassess for CAD.He had a nuclear stress test on 02/14/2024 showed There is a medium-sized fixed perfusion defect of moderate severity in the inferior and inferolateral louise. Wall motion abnormal with moderate hypokinesis in the inferior and inferolateral louise. Allergies Allergies Allergen Reactions Ciprofloxacin Muscle pain Muscle weakness Latex Rash Celecoxib Other (See comments) Altered depth perception Current Outpatient Medications on File Prior to Encounter Medication Sig Dispense Refill acetaminophen (TYLENOL ARTHRITIS PAIN ORAL) Take 2 tablets by mouth nightly Anucort-HC 25 mg suppository as needed atorvastatin (LIPITOR) 20 mg tablet Take 1 tablet (20 mg total) by mouth nightly 90 tablet 3 azelastine (ASTELIN) 137 mcg (0.1 %) nasal spray Administer 2 sprays into each nostril nightly busPIRone (BUSPAR) 5 mg tablet Take 1 tablet (5 mg total) by mouth 2 (two) times a day calcium carbonate-vitamin D3 1,500 mg (600mg elemental) -800 unit per tablet 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 mouth yacht builder 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 cholecalciferol 400 unit capsule Take 200 Units by mouth every other day coenzyme Q10 200 mg capsule Take 1 capsule (200 mg total) by mouth nightly dapagliflozin propanediol (FARXIGA) 10 mg tablet Take 1 tablet (10 mg total) by mouth daily 90 tablet 3 finasteride (PROSCAR) 5 mg tablet Take 1 tablet (5 mg total) by mouth yacht builder 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 fluocinolone in oil (DermOtic) 0.01 % drops Administer 5 drops into each ear daily as needed (ear inflammation) gabapentin (NEURONTIN) 100 mg capsule Take 1 capsule (100 mg total) by mouth 3 (three) times a day 90 capsule 11 ketoconazole (NIZORAL) 2 % cream loratadine 10 mg capsule Take 10 mg by mouth every evening magnesium oxide 200 mg tablet,chewable Take 200 mg by mouth yacht builder 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 multivitamin no.44-vit D3-K 1,000-800 unit-mcg capsule 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 mouth yacht builder 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 mupirocin (BACTROBAN) 2 % ointment daily as needed omeprazole (PriLOSEC) 40 mg capsule Take 1 capsule (40 mg total) by mouth daily polyethylene glycol (MIRALAX) 17 gram packet Take 1 packet (17 g total) by mouth nightly prochlorperazine (COMPAZINE) 10 mg tablet Take 1 tablet (10 mg total) by mouth every 6 (six) hours as needed for nausea or vomiting for nausea sacubitriL-valsartan (ENTRESTO) 24-26 mg tablet 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 mouth 2 (two) times a day 28 tablet 0 sotaloL (BETAPACE) 120 mg tablet Take 1 tablet (120 mg total) by mouth 2 (two) times a day 180 tablet 3 sucralfate (CARAFATE) 1 gram tablet Take 1 tablet (1 g total) by mouth 3 (three) times a day (Patient not taking: Reported on 11/19/2024) triamcinolone (KENALOG) 0.1 % cream turmeric root extract 500 mg capsule Take by mouth Current Facility-Administered Medications on File Prior to Encounter Medication Dose Route Frequency Provider Last Rate Last Admin perflutren protein-a (OPTISON) 3 mL in sodium chloride 0.9% 8 mL syringe 1-8 mL intravenous Once in imaging Ryan Joyce Jr., MD Past Medical History Past Medical History: Diagnosis Date Atrial fibrillation (CMS/HCC) (HCC) s/p ablation in 2006 Awareness under anesthesia during ablation BPPV (benign paroxysmal positional vertigo) Cardiomyopathy (HCC) Carotid artery disease (HCC) CHF (congestive heart failure) (CMS/HCC) (HCC) Coronary artery disease GERD (gastroesophageal reflux disease) Heart disease Heart failure (HCC) HFrEF (heart failure with reduced ejection fraction) (CMS/HCC) (HCC) EF 42% Hyperlipidemia Hypertension OA (osteoarthritis) PUD (peptic ulcer disease) PVC's (premature ventricular contractions) Sleep apnea Spinal stenosis Past Surgical History Past Surgical History: Procedure Laterality Date BACK SURGERY CARDIAC CATHETERIZATION CHOLECYSTECTOMY 2011 FLUORO GUIDED ASPIRATION TMJ LEFT Left 07/18/2023 HERNIA REPAIR INSERT / REPLACE / REMOVE PACEMAKER Family History Family History Problem Relation Age of Onset [...] Hyperthermia Neg Hx Pseudochol deficiency Neg Hx Social History Social History Tobacco Use Smoking status: Former Current packs/day: 0.00 Types: Cigarettes Quit date: 1971 Years since quittin.9 Passive exposure: Past Smokeless tobacco: Never Vaping Use Vaping status: Never Used Substance and Sexual Activity Alcohol use: Yes Alcohol/week: 7.0 standard drinks of alcohol Types: 7 Glasses of wine per week Drug use: No Sexual activity: Defer REVIEW of SYSTEMS As per HPI. Review of all other systems were done and negative. GEN: pleasant in NAD; alert, comfortable HENT: NCAT, MMM, anicteric Neck: no trauma, no JVD CVS: RRR, S1S2, no rubs/murmurs/gallops PULM: non-labored, CTAB, good inspiratory effort ABD: soft, not tender to palpation EXT: equal radial pulses, no edema Neuro: motor and sensation grossly intact Skin: warm, dry, no cyanosis I have reviewed the following tests independently and discussed with the patient. CTA Abdominal Aorta w/IIAF 02/18/19 VASCULAR FINDINGS: Abdominal Aorta and Branches: Celiac [...] No acute osseous or soft tissue abnormality. us Neftaly Portillo MD CV CARDIAC CATH PROCEDURES Fin al Result * XR Spine Lumbar Ap Lat Flex Ext min 4 Views (02/20/2025 12:32 PM CDT) Anatomical Region Laterality Modality L-spine N/A Computed Radiogr aphy 02/20/2025 1:30 PM CDT Impressions 02/20/2025 1:30 PM CDT 1. Multilevel lumbar spondylosis and lower lumbar facet arthropathy. 2. Grade 1 anterolisthesis of L4-L5 does not change with flexion or extension Electronically signed by: Aliza Lee MD Narrative 02/20/2025 1:30 PM CDT EXAMINATION: XR SPINE LUMBAR AP LAT FLEX EXT MIN 4 VIEWS HISTORY: Lumbar back pain FINDINGS: 4 views of the lumbar spine are submitted for interpretation with comparison made to prior scoliosis radiographs 02/08/2024. No acute compression fracture. In neutral position, there is grade 1 anterolisthesis of L4-L5. This does not change significantly with flexion or extension. Multilevel degenerative disc disease is greatest and mild at L5-S1. There is moderate lower lumbar facet arthropathy. Cholecystomy clips are present. Procedure Note Kelly Lee MD - 02/20/2025 EXAMINATION: XR SPINE LUMBAR AP LAT FLEX EXT MIN 4 VIEWS HISTORY: Lumbar back pain FINDINGS: 4 views of the lumbar spine are submitted for interpretation with comparison made to prior scoliosis radiographs 02/08/2024. No acute compression fracture. In neutral position, there is grade 1 anterolisthesis of L4-L5. This does not change significantly with flexion or extension. Multilevel degenerative disc disease is greatest and mild at L5-S1. There is moderate lower lumbar facet arthropathy. Cholecystomy clips are present. IMPRESSION: 1. Multilevel lumbar spondylosis and lower lumbar facet arthropathy. 2. Grade 1 anterolisthesis of L4-L5 does not change with flexion or extension Electronically signed by: Aliza Lee MD Ewa Nath NP IMG XR PROCEDURES Final Result * CBC with auto differential (02/13/2025 11:56 AM CDT) WBC 5.3 3.8 - 10.8 Thousand/u L [facility] RBC, POC 4.55 4.20 - 5.80 Million/uL [facility] Hgb 14.4 13.2 - 17.1 g/dL [facility] Hct 43.9 38.5 - 50.0 % [facility] MCV 96.5 80.0 - 100.0 fL [facility] MCH 31.6 27.0 - 33.0 pg [facility] MCHC 32.8 32.0 - 36.0 g/dL [facility] Comment: For adults, a slight decrease in the calculated MCHC value (in the range of 30 to 32 g/dL) is most likely not clinically significant; however, it should be interpreted with caution in correlation with other red cell parameters and the patient's clinical condition. Rdw 13.3 11.0 - 15.0 % [facility] Platelets 254 140 - 400 Thousand/u L [facility] MPV 9.1 7.5 - 12.5 fL [facility] Neutrophils, abs 2,544 1,500 - 7,800 cells/uL [facility] Lymphocytes, abs 2,104 850 - 3,900 cells/uL [facility] Monocyte abs 541 200 - 950 cells/uL [facility] Eosinophils, abs 69 15 - 500 cells/uL [facility] Basophils, abs 42 0 - 200 cells/uL [facility] Neutrophils 48 % [facility] Lymphocyte pct 39.7 % [facility] Monocytes 10.2 % [facility] Eosinophils 1.3 % [facility] Basophils 0.8 % [facility] Blood 02/13/2025 11:5 6 AM CDT 02/13/2025 11:57 AM CDT Narrative [facility] - 02/14/2025 3:06 AM CDT FASTING:NO FASTING: NO us Neftaly Portillo MD LAB BLOOD ORDERABLES Final Res ult [facility] [address] [place] [address] * (ABNORMAL) Basic metabolic panel (02/13/2025 11:56 AM CDT) [facility] Glucose 93 65 - 99 mg/dL [facility] Comment: Fasting reference interval BUN 13 7 - 25 mg/dL [facility] Creatinine 0.64(L) 0.70 - 1.22 mg/dL [facility] eGFR 95 > OR = 60 mL/min/1.7 3m2 [facility] BUN/creat ratio 20 6 - 22 (calc) [facility] Sodium 137 135 - 146 mmol/L [facility] Potassium, pl 4.1 3.5 - 5.3 mmol/L [facility] Chloride 100 98 - 110 mmol/L [facility] CO2 32 20 - 32 mmol/L [facility] Calcium 9.0 8.6 - 10.3 mg/dL [facility] Blood 02/13/2025 11:5 6 AM CDT 02/13/2025 11:57 AM CDT Narrative [facility] - 02/14/2025 3:06 AM CDT FASTING:NO FASTING: NO us Neftaly Portillo MD LAB BLOOD ORDERABLES Final Res ult [facility] [address] [place] [address] * [place] ARTHROCENTESIS ASPIR&/INJ MAJOR JT/BURSA W/O US (01/17/2025 [...] MEDICARE BLUE CROSS MEDICARE SUPPLEMENT MEDICARE MEDICARE [facility] MEDICARE BLUE CROSS MEDICARE SUPPLEMENT MEDICARE [facility] MEDICARE SUPPLEMENT Advance Directives For more information, please contact: [phone] * Full Code (Latest Code Status on File) Date Activated Date Inactivated Comments 02/21/2025 9:02 AM 02/22/2025 4:33 AM * Full Code Date Activated Date Inactivated Comments 09/20/2023 6:27 PM 09/21/2023 7:45 PM * Full Code Date Activated Date Inactivated Comments 04/24/2018 5:50 PM 04/27/2018 2:46 PM * Full Code Date Activated Date Inactivated Comments 03/24/2018 11:24 PM 03/25/2018 4:51 PM Care Teams Jig Hand Relationship Specialty Start Date End Date Cheo Potts MD [address] [facility] [address] [facility] [address] [place] [address] PCP - General 01/03/17 Neftaly Portillo MD [address] [facility] [address] [place] [address] Consulting Physician Cardiology 11/15/18 Qi Norris MD [address] [id number] Referring Physician Gastroenterology 05/10/23 Katharina Mac NP [address] [address] Nurse Practitioner Cardiology 11/21/23 Tree Ruiz MD PhD [address] [address] Consulting Physician Cardiology 11/21/23 [place] [address] [address] Nurse Practitioner Mexican Food Maker 09/18/24 [place] [address] [address] [place] [address] [place] [address] Consulting Physician Pain Management 11/13/24
--- OUTSIDE RECORDS SUMMARY | 2025-04-01 00:56 | XMS_ITS | Encounter Summary ---
Author Organization [facility] Address [address] [place] [address] Phone Care Team Providers Care Senior Java J2Ee Developer Name Role Phone Cheo Potts MD Primary Care Provider Neftaly Portillo MD Unavailable [phone] Qi Norris MD Unavailable [phone] Katharina Mac CENTRAL AISLE CASHIER Unavailable [phone] Tree Ruiz MD PhD Unavailable [phone] Oanh Trevizo CENTRAL AISLE CASHIER Unavailable Torin Almodovar MD Unavailable Reason for Visit * Reason Onset Date Comments Dizziness 03/31/2025 Encounter Details Date Type Department Care Team (Late st Contact Info) Description 03/31/2025 Telephone [facility] Cardiology [address] [facility] 8th [place] [address] [place] [address] Neftaly Portillo MD [address] [place] [address] Dizziness Social History Tobacco Use Types Packs/Day Years Used Date Smoking Tobacco: Former Cigarettes 1 13 1 1971 Passive Smoke Exposure: Past Smokeless Tobacco: Never Alcohol Use Standard Drinks/Week Comments Yes 7 (1 standard drink = 0.6 oz pur e alcohol) [facility] Utilities Answer Date Recorded In the past 12 months has [employer], gas, oil, or water company threatened to [...] often do you attend chur ch or latter day services? Never 09/22/2023 Do you belong to any clubs o r organizations such as restorationism groups, unions, fraternal or athletic groups, or [...] on file Legal Sex Male 3:18 AM PROGRAM HOST Gender Identity Male 11/05/2020 12:05 PM PROGRAM HOST Sexual Orientation Not on file documented as of this encounter Miscellaneous Notes * Telephone Encounter - Mae Villanueva RMA - 03/31/2025 4:33 PM CDT Spoke with pt. Patient has complaints of dizziness/lightheadedness and blurred vision for the past 24 hours. 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 States that it is worse in the heat. Denies CP or swelling. States his SOB has increased especially with activity. Med list up to date. Patient currently on Augmentin for tooth infection. BP has been around 130's/80s. Patient has appt with Dr. Portillo tomorrow. Advised pt to have someone drive him to the appt. * Telephone Encounter - Mae Villanueva RMA - 03/31/2025 4:02 PM CDT LVM for pt to return call. * Telephone Encounter - WilbertMadelyn Triana - 03/31/2025 2:55 PM CDT Bandar Had a dizzy spell yesterday and blurred vision this morning in a doctor's office (lasted 4-5 min), more like pixilated vision. Wants to talk to you today. He is aware of appt tomorrow. documented in this encounter Plan of Treatment Not on file documented as of this encounter Visit Diagnoses Not on filedocumented in this encounter Care Teams Senior Java J2Ee Developer Relationship Specialty Start Date End Date Cheo Potts MD [address] [facility] [address] [place] [address] PCP - General 01/03/17 Neftaly Portillo MD [address] [facility] [address] [place] [address] Consulting Physician Cardiology 11/15/18 Qi Norris MD [address] [address] Referring Physician Gastroenterology 05/10/23 Katharina Mac NP [address] [address] Nurse Practitioner Cardiology 11/21/23 Tree Ruiz MD PhD [address] [address] Consulting Physician Cardiology 11/21/23 [place] [address] [facility] [place] [place] [address] [place] [address] Nurse Practitioner Dress Marker 09/18/24 [place] [address] [facility] [address] [place] [address] Consulting Physician Pain Management 11/13/24 documented as of this encounter
--- OUTSIDE RECORDS SUMMARY | 2025-04-01 00:56 | XMS_ITS | Encounter Summary ---
Author Organization [facility] Address [address] [place] [address] Phone Care Team Providers Care Insurance Licensing Supervisor Name Role Phone Cheo Potts MD Primary Care Provider Neftaly Portillo MD Unavailable [phone] Tree Ruiz MD PhD Unavailable [phone] Katharina Mac PHOTOENGRAVING PROOFER Unavailable [phone] Qi Norris MD Unavailable [phone] Yuly Nieves RN Unavailable [phone] Katharina Mac PHOTOENGRAVING PROOFER Unavailable Tree Ruiz MD PhD Unavailable [phone] Oanh Trevizo PHOTOENGRAVING PROOFER Unavailable Oanh Trevizo PHOTOENGRAVING PROOFER Unavailable [phone] Troin Almodovar MD Unavailable Encounter Details Date Type Department Care Team (Latest Contact Info) Description 10/05/2022 Orders Only [facility] Berenice Olivares, RN [address] [facility] [address] [place] [address] Social History Tobacco Use Types [...] on file Legal Sex Male 3:18 AM ENROLLMENT SPECIALIST Gender Identity Male 11/05/2020 12:05 PM ENROLLMENT SPECIALIST Sexual Orientation Not on file documented [...] on filedocumented in this encounter Care Teams Insurance Licensing Supervisor Relationship Specialty Start Date End Date Cheo Potts MD [address] [place], [place] [id number] PCP - General 01/03/17 Neftaly Portillo MD [address] [facility] [address] [facility] [address] [place] [address] Consulting Physician Cardiology 11/15/18 Tree Ruiz MD PhD [address] [facility] [address] [facility] [address] [place] [address] Referring Physician Cardiology 12/10/20 11/20/23 Katharina Mac NP [address] [facility] [address] [facility] [address] [place] [address] Referring Physician Cardiology 12/10/20 11/20/23 Qi Norris MD [address] [address] Referring Physician Gastroenterology 05/10/23 Yuly Nieves, RN [address] [place] [address] SHOP Outpatient Student Affairs Vice President 09/22/23 10/18/23 Katharina Mac, DEBORA [address] [place] [address] Nurse Practitioner Cardiology 11/21/23 Tree Ruiz MD PhD [address] [place] [address] Consulting Physician Cardiology 11/21/23 [place] [address] [address] [facility] [address] [place] [address] Nurse Practitioner Fagoter 07/18/24 11/12/24 [place] [address] [address] [facility] [address] [place] [address] Nurse Practitioner Fagoter 09/18/24 [place] [address] [address] [facility] [address] [place] [address] Consulting Physician Pain Management 11/13/24 documented as of this encounter
--- OUTSIDE RECORDS SUMMARY | 2025-04-01 00:56 | XMS_ITS | Continuity of Care Document ---
Author Organization [facility] [place] Address [address] [facility] [address] [place] [address] Phone Care Team Providers Care Lathe Turner Name Role Phone Juve PT,MPT,ATC, Armando Unavailable [...] Re-Ed Manual Therapy PT Re-evaluation Therapeutic Exercise Therapeutic Activities Neuromuscular Re-Ed PT Evaluation High Complexity 9 Therapeutic Exercise [...] Diagnoses Date Provider Providers Copied on Encounter [facility], [place], [place], [address], tel:[phone] [place] No Information Sep-2 2 Juve Castaneda [place], [place]. [facility], [place], [place], [address], tel:[phone] [place] No Information Sep-2 2 Juve Castaneda [place]. [facility], [place], [place], [address], tel:[phone] [place] No Information Sep-2 2 Juve Castaneda [place], . [facility], [place], [place], [address], tel:[phone] [place] No Information Sep-1 2 [place]. [facility], [place], [place], [address], [place] tel:[phone] [place] No Information Sep-1 - 2 [place] Arm[place]. , [place], [place]. [facility], [place], [place], [address], [place] tel:[phone] [place] No Information Sep-0 2 [place]. , [place]. [facility], [place], [place], [address], [place] tel:[phone] [place] No Information Sep-0 2 [place]. , [place] [facility], [address], [place], [place], [address], tel:[phone] [place] No Information Dec-2 - 0 [place] Arm[place]. , [place]. [facility], [place], [place], [address], [place] tel:[phone] [place] No Information Aug-09 08- 0 An Arm[place]. , [place]. [facility], [place], [place], [address], [place] tel:[phone] [place] No Information 2 - 0 [place] Arm[place]. , [place]. [facility], [place], [place], [address], [place] tel:[phone] [place] No Information Jul-1 - 0 [place]. , [place]. [facility], [place], [place], [address], [place] tel:[phone] [place] No Information Jul-0 0 [place]. , [place]. [facility], [place], [place], [address], [place] tel:[phone] [place] No Information - 0 [place]. , [place]. [facility], [place], [place], [address], [place] tel:[phone] [place] No Information 0 An [place]. , [place]. [facility], [place], [place], [address], tel:[phone] [place] No Information 0 [place]. , [place]. [facility], [place], [place], [address], tel:[phone] [place] No Information 0 [place]. , [place]. [facility], [place], [place], [address], tel:[phone] [place] No Information 0 [place]. , [place]. [facility], [place], [place], [address], tel:[phone] [place] No Information 9 Makler Luke. . [facility], [place], [place], [address], [place] tel:[phone] [place] No Information 9 [place]. , [place]. [facility], [place], [place], [address], tel:[phone] [place] No Information 9 Makler Luke. . [facility], [place], [place], [address], [place] tel:[phone] Rudd No Information 0 9 Omar Durham. . Referring Provider: Tarik Fish, [address], [place], [address]. tel:[phone] [facility], [place], [place], [address], [place] tel:[phone] Rudd No Information Oct-0 1-201 9 Treaster Marva. . Referring Provider: Nel Su[address]rez[address], [place], [address]. tel:[phone] [place] [address] [address], [place], [place], [address], tel:[phone] Rudd No Information Sep-2 6-201 9 Treaster Marva. . Referring Provider: Nel Su[address]rez[address], [place], [address]. tel:[phone] [place] [address] [address], [place], [place], [address], [place] tel:[phone] Rudd No Information Sep-1 9-201 9 Treaster Marva. . Referring Provider: Nel Su[address]rez[address], [place], [address]. tel:[phone] [place] [address] [facility] [address], [place], [place], [address], [place] tel:[phone] Rudd No Information Sep-1 0-201 9 Treaster Marva. . Referring Provider: Nel Suárez[address], [place], [address]. tel:[phone] [place] [address] [address], [place], [place], [address], [place] tel:[phone] Rudd No Information Sep-0 3-201 9 Treaster Marva. . Referring Provider: Nel Suárez[address], [place], [address]. tel:[phone], [place], [place], [address], [place] tel:[phone] [place] No Information Apr-2 7-201 9 [place], [place]. Referring Provider: Nel Suárez[address], [place], [address]. tel:[phone] [facility], [place], [place], [address], [place] tel:[phone] [place] Pain in left shoulderPain in right shoulder 8 [place]. , [place]. [facility], [place], [place], [address], [place] tel:[phone] [place] Pain in left shoulderPain in right shoulder 8 An Armando. , [place]. [facility], [place], [place], [address], [place] tel:[phone] [place] Pain in left shoulderPain in right shoulder 8 [place]. , [place]. [facility], [place], [place], [address], [place] tel:[phone] [place] Pain in left shoulderPain in right shoulder 8 [place]. , [place]. [facility], [place], [place], [address], [place] tel:[phone] [place] Pain in left shoulderPain in right shoulder 8 [place]. , [place]. [facility], [place], [place], [address], [place] tel:[phone] [place] Pain in left shoulderPain in right shoulder 8 An Arm[place]. , [place], [place]. [facility], [place], [place], [address], [place] tel:[phone] [place] Pain in left shoulderPain in right shoulder 8 An Armando. , [place], [place]. [facility], [place], [place], [address], [place] tel:[phone] [place] Pain in left shoulderPain in right shoulder Jun- 8 Juve [place]. , [place]. [facility], [place], [place], [address], [place] tel:[phone] [place] Pain in left shoulderPain in right shoulder Jun- 8 Francisco Qureshi. . [facility], [place], [place], [address], [place] tel:[phone] [place] Pain in left shoulderPain in right shoulder Jun- 8 Juve Roberts. , [place]. [facility], [place], [place], [address], [place] tel:[phone] [place] Pain in left shoulderPain in right shoulder Jun- 8 Juve Castaneda , [place]. [facility], [place], [place], [address], [place] tel:[phone] [place] Pain in left shoulderPain in right shoulder Jun-0 8 Juve [place]. , [place]. [facility], [place], [place], [address], [place] tel:[phone] [place] Spinal stenosis, lumbar region without neurogenic andre Apr-0 8 Juve Castan[place] , [place], [place]. Referring Provider: Chris Álvarez [address], [place], [place], [facility]. tel:[phone] [facility], [place], [place], [address], [place] tel:[phone] [place] Spinal stenosis, lumbar region without neurogenic andre Apr-0 8 [place]. Referring Provider: Chris Álvarez [address], [place], [address]. tel:[phone] [facility], [place], [place], [address], [place] tel:[phone] [place] Spinal stenosis, lumbar region without neurogenic andre Apr-0 2-201 8 An [place]. , [place]. Referring Provider: Aguila Álvarez[address] [place] [address] [address], [place], [facility]. tel:[phone] [facility], [address], [place], [place], [address], [place] tel:[phone] [place] Spinal stenosis, lumbar region without neurogenic andre Mar-3 0-201 8 [place] Arm[place]. , [place]. Referring Provider: Cheo Potts [address] [place] [address] [address], [place], [facility]. tel:[phone] [facility] [address], [place], [place], [address], [place] tel:[phone] [place] Spinal stenosis, lumbar region without neurogenic andre Mar-2 8-201 8 [place]. , [place]. Referring Provider: Aguila Álvarez[address] [place] [address] [address], [place], [facility]. tel:[phone] [place] [address] [facility] [address], [place], [place], [address], [place] tel:[phone] [place] Spinal stenosis, lumbar region without neurogenic andre Mar-2 6-201 8 [facility] [place] Referring Provider: Aguila Álvarez[address] [place] [address] [address], [place], [facility]. tel:[phone] [facility] [address], [place], [place], [address], [place] tel:[phone] [place] Spinal stenosis, lumbar region without neurogenic andre Mar-2 3-201 8 [facility] , [place] Referring Provider: Aguila Álvarez[address] [place] [address] [address], [place], [facility]. tel:[phone] [facility] [address], [place], [place], [address], [place] tel:[phone] [place] Spinal stenosis, lumbar region without neurogenic andre Mar-2 1-201 8 An Arm[place]. , [place]. Referring Provider: Aguila Álvarez[address] [place] [address] [address], [place], [address]. tel:[phone] [place] [address], [place], [place], [address], [place] tel:[phone] [place] Spinal stenosis, lumbar region without neurogenic andre Mar-1 9-201 8 [place] Arm[place]. , [place]. Referring Provider: Aguila Álvarez[address] [place] [address] [address], [place], [facility]. tel:[phone] [place] [address], [place], [place], [address], [place] tel:[phone] [place] No Information Mar-1 6-201 8 [place] Arm[place]. , [place]. Referring Provider: Aguila Álvarez[address] [place] [address] [address], [place], [facility]. tel:[phone], [place], [place], [address], [place] tel:[phone] [place] No Information Mar-1 4-201 8 [place]. , [place]. Referring Provider: Chris Álvarez [facility] [address], [place], [facility]. tel:[phone], [place], [place], [address], [place] tel:[phone] [place] No Information Mar-1 2-201 8 [place] Arm[place]. , [place]. Referring Provider: Chris Álvarez [facility] [address], [place], [facility]. tel:[phone] [facility] [address], [place], [place], [address], [place] tel:[phone] [place] No Information Mar-0 9-201 8 [place]. , [place]. Referring Provider: Chris Álvarez [facility] [address], [place], [facility]. tel:[phone] [place] [address], [place], [place], [address], [place] tel:[phone] [place] No Information Mar-0 7-201 8 [place]. , [place]. Referring Provider: Cheo Potts [address] [place] [address] [address], [place], [facility]. tel:[phone] [facility] [address], [place], [place], [address], [place] tel:[phone] [place] No Information Mar-0 5-201 8 [place]. , [place]. Referring Provider: Cheo Potts [address] [place] [address] [address], [place], [facility]. tel:[phone] [facility] [address], [place], [place], [address], tel:[phone] [place] No Information Mar-0 2-201 8 Guillermina Adames. . Referring Provider: Cheo Potts [address] [place] [address] [address], [place], [facility]. tel:[phone] [facility], [address], [place], [place], [address], [place] tel:[phone] [place] Spinal stenosis, lumbar region without neurogenic andre Feb-2 8-201 8 [place]. , [place]. Referring Provider: Cheo Potts [address] [place] [address] [address], [place], [facility]. tel:[phone] [facility] [address], [place], [place], [address], [place] tel:[phone] [place] No Information Nov-0 9-201 7 [place]. , [place] Referring Provider: Tarik Fish, [address] [facility] [address], [place], [address]. tel:[phone] [facility], [place], [place], [address], [place] tel:[phone] [place] No Information Nov-0 1-201 7 [facility] [place] Referring Provider: Nel Suárez[address], [place], [address]. tel:[phone], [place], [place], [address], [place] tel:[phone] [place] No Information Jun-3 0-201 7 [facility] , [place] Referring Provider: Nel Suárez[address], [place], [address]. tel:[phone] [facility] [address], [place], [place], [address], [place] tel:[phone] [place] No Information Jun-2 3-201 7 [facility] [place] Referring Provider: Nel Suárez[address], [place], [address]. tel:[phone] [facility] [address], [place], [place], [address], [place] tel:[phone] [place] No Information Jun- 9-201 7 [facility] [place] Referring Provider: Tacos Suárez [address], [place], [address]. tel:[phone] [facility] [address], [place], [place], [address], [place] tel:[phone] [place] No Information Jun-1 6-201 7 [facility] [place] Referring Provider: Nel Suárez[address], [place], [address]. tel:[phone] [facility] [address], [place], [place], [address], [place] tel:[phone] [place] No Information Jun-0 9-201 7 [place]. , [place]. Referring Provider: Tacos Suárez [address], [place], [address]. tel:[phone] [facility] [address], [place], [place], [address], tel:[phone] [place] No Information Jun-0 7 [place], . Referring Provider: Tacos Suárez [address], [place], [address]. tel:[phone] [facility] [address], [place], [place], [address], tel:[phone] [place] No Information Jun-0 7 [place], . Referring Provider: Tacos Suárez [address], [place], [address]. tel:[phone] [facility] [address], [place], [place], [address], tel:[phone] [place] No Information Sep-2 7 [place], . Referring Provider: Tacos Suárez [address], [place], [address]. tel:[phone] [facility] [address], [place], [place], [address], tel:[phone] Michelle No Information Sep-2 7 Niederhomatthias Adames. . Referring Provider: Tacos Suárez [address], [place], [address]. tel:[phone] [facility] [address], [place], [place], [address], [place] tel:[phone] Michelle Stiffness of right knee, not elsewhere classifiedPai n in right kneeOth disrd of synovium and tendon, unspecified siteAbnormal posture Sep-2 7 Niederhoffer Rosangela. . Referring Provider: Tacos Suárez [address], [place], [address]. tel:[phone] Family History Family Member Type Diagnosis Age At Onset No Information Payers Payer name Insurance type Covered alliance party ID Authordariena tikavon(s) Medicare [place] [id number] [facility] [id number] Social History Type Description Quantity Date Captured [...]
--- OUTSIDE RECORDS SUMMARY | 2025-04-01 00:56 | XMS_ITS | Encounter Summary ---
Author Organization [facility] Address [address] [facility] [place] [address] Phone Care Team Providers Care Patient Financial Representative Name Role Phone Cheo Potts MD Primary Care Provider Marques Barksdale DO Unavailable [phone] Barbara Warner APRN, MINI LAB OPERATOR Unavailable Qi Norris MD Unavailable [phone] Reason for Visit * Reason Comments Medication Refill Encounter Details Date Type Department Care Team (Late st Contact Info) Description 11/20/2022 Refill [facility] - Gastroenterology [facility] [address] [place] [id number] Rneetta Jacob Duyen, PAC [address] [place] [address] Medication Refill Social History Tobacco Use Types [...] present documented in this encounter Care Teams Patient Financial Representative Relationship Specialty Start Date End Date Cheo Potts MD [address] [facility] [address] [place] [address] PCP - General Family Medicine 11/09/15 Marques Barksdale DO [address] [place] [address] [address] [place] [address] Gastroenterology 11/12/15 Barbara Warner APRN, MINI LAB OPERATOR [address] [place] [address] Nurse Practitioner Advanced Practice Nurse 10/24/22 Qi Norris MD [address] [place] [address] Consulting Physician Gastroenterology 05/12/22 documented as of this encounter
--- OUTSIDE RECORDS SUMMARY | 2025-04-01 00:56 | XMS_ITS | Encounter Summary ---
Author Organization [facility] Address [address] [place] [address] Phone Care Team Providers Care Zoning Assistant Name Role Phone Cheo Potts MD Primary Care Provider Neftaly Portillo MD Unavailable Qi Norris MD Unavailable [phone] Katharina Mac HOOP COILING MACHINE OPERATOR Unavailable Tree Ruiz MD PhD Unavailable [phone] Oanh Trevizo HOOP COILING MACHINE OPERATOR Unavailable Torin Almodovar MD Unavailable Encounter Details Date Type Department Care Team (Late st Contact Info) Description 02/17/2025 Results Follow-Up [facility] [address] [facility] [address] [place] [address] Mae Villanueva RMA CBC with auto differential, Basic metabolic panel Social History Tobacco Use Types Packs/Day Years Used Date Smoking Tobacco: Former Cigarettes Q uit: 1972 Passive Smoke Exposure: Past Smokeless Tobacco: Never Alcohol Use Standard Drinks/Week Comments Yes 7 (1 standard drink = 0.6 oz pur e alcohol) [facility] Utilities Answer Date Recorded In the past 12 months has [employer] electric, gas, oil, or water company threatened [...] often do you attend chur ch or mandaen services? 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 Gender Identity Male 11/05/2020 12:05 PM ASBESTOS TEXTILE SUPERVISOR Sexual Orientation Not on file documented as of this encounter Plan of Treatment Not on file documented as of this encounter Visit Diagnoses Not on filedocumented in this encounter Care Teams Zoning Assistant Relationship Specialty Start Date End Date Cheo Potts MD [address] [facility] [address] [facility] 120 [place], [place] [address] PCP - General 01/03/17 Neftaly Portillo MD [address] [facility] [address] [place] [address] Consulting Physician Cardiology 11/15/18 Qi Norris MD [address] [address] Referring Physician Gastroenterology 05/10/23 Katharina Mac, [place] [address] [address] Nurse Practitioner Cardiology 11/21/23 Tree Ruiz MD PhD [address] [address] Consulting Physician Cardiology 11/21/23 [place] [address] [address] [facility] [address] [place] [address] Nurse Practitioner Fruit Buying Grader 09/18/24 [place] [address] [address] [facility] [address] [facility] [place] [address] Consulting Physician Pain Management 11/13/24 documented as of this encounter
--- OUTSIDE RECORDS SUMMARY | 2025-04-01 00:56 | XMS_ITS | Encounter Summary ---
Author Organization [facility] Address [address] [place] [address] Phone Care Team Providers Care Patient Financial Coordinator Name Role Phone Cheo Potts MD Primary Care Provider Neftaly Portillo MD Unavailable [phone] Tree Ruiz MD PhD Unavailable [phone] Katharina Mac COMMERCIAL DRONE SOFTWARE DEVELOPER Unavailable Qi Norris MD Unavailable [phone] Yuly Nieves RN Unavailable Katharina Mac COMMERCIAL DRONE SOFTWARE DEVELOPER Unavailable [phone] Tree Ruiz MD PhD Unavailable [phone] Oanh Trevizo COMMERCIAL DRONE SOFTWARE DEVELOPER Unavailable Oanh Trevizo COMMERCIAL DRONE SOFTWARE DEVELOPER Unavailable [phone] Torin Almodovar MD Unavailable Encounter Details Date [...] on file Legal Sex Male 3:18 AM ETL DATABASE DEVELOPER Gender Identity Male 11/05/2020 12:05 PM ETL DATABASE DEVELOPER Sexual Orientation Not on file documented [...] on filedocumented in this encounter Care Teams Patient Financial Coordinator Relationship Specialty Start Date End Date Cheo Potts MD [address] [place] [address] PCP - General 01/03/17 Neftaly Portillo MD [address] [facility] [address] [place] [address] Consulting Physician Cardiology 11/15/18 Tree Ruiz MD PhD [address] [facility] [address] [place] [address] Referring Physician Cardiology 12/10/20 11/20/23 Katharina Mac NP [address] [facility] [address] [place] [address] Referring Physician Cardiology 12/10/20 11/20/23 Qi Norris MD 2 [facility] [address] [place] [address] Referring Physician Gastroenterology 05/10/23 Yuly Nieves RN [address] [facility] [address] [place] [address] SHOP Outpatient Lead Programmer 09/22/23 10/18/23 Katharina Mac NP [address] [facility] [address] [place] [address] Nurse Practitioner Cardiology 11/21/23 Tree Ruiz MD PhD [address] [facility] [address] [place] [address] Consulting Physician Cardiology 11/21/23 Oanh Trevizo, [place] [address] [address] [facility] [address] [place] [address] Nurse Practitioner Glass Crusher 07/18/24 11/12/24 [place] [address] [address] Nurse Practitioner Glass Crusher 09/18/24 [place] [address] [address] [facility] [address] [place] [place] [address] Consulting Physician Pain Management 11/13/24 documented as of this encounter
--- OUTSIDE RECORDS SUMMARY | 2025-04-01 00:56 | XMS_ITS | Continuity of Care Document ---
Author Name [facility] Organization [facility] Care Team Providers Care Coal Chute Worker Name Role Phone [facility] Unavailable Unavailable Problems Combined list of problems from Department of [facility] and [facility] facilities. It does not include entries that were removed or entered in error. Problem Status Onset Date Problem Type Date of Resolution Comments Source Allergic Rhinitis ([facility] [id number]) Active Condition [facility] Benign paroxysmal positional vertigo Active Condition [facility] Benign Prostatic Hypertrophy without Outflow Obstruction ([facility] [id number]) Active Condition [facility] CAD - Coronary Artery Disease ([facility] [id number]) Active Condition [facility] Chronic congestive heart failure Active Condition [facility] Generalized anxiety disorder Active Condition [facility] GERD - Gastro-Esophageal Reflux Disease ([facility] [id number]) Active Condition [facility] H/O: aortic aneurysm Active Condition [facility] HTN - Hypertension ([facility] [id number]) Active Condition [facility] Hyperlipidemia ([facility] [id number]) Active Condition [facility] Lumbar spinal stenosis Active Condition [facility] Obstructive Sleep Apnea of Adult ([facility] [id number]) Active Condition [facility] Peripheral arterial occlusive disease Active Condition [facility] Vitamin D Deficiency ([facility] [id number]) Active Condition [facility] Diagnosis: ICD-10-CM Z00.00 Encntr for general adult medical exam w/o abnormal findings Active Diagnosis 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 [place] and [facility] facilities.Medications provided include 1) outpatient medications from the last 15 months, and 2) patient-reported medications. Medication Details Route Status Patient Instructions Prescription Expires Prescription Number Last Dispense Date Ordering Provider Order Date Order Qty Source CHOLECALCIF RAMIRO 25MCG (1,000UNIT) TAB TAKE ONE TABLET BY MOUTH ONCE A DAY ORAL ACTIVE EJ HANSON 2024 [facility] CODEINE 12MG/ACETAM INOPHEN 120MG/5ML SOLN,ORAL TAKE 30 ML BY MOUTH THREE TIMES A DAY NEEDED ORAL ACTIVE TITUS WEINER Huber 2024 [facility] COENZYME Q10 CAP/TAB TAKE 1 CAP/TAB BY MOUTH ONCE A DAY ORAL ACTIVE EJ HANSON 2024 [facility] LUTEIN CAP/TAB TAKE 1 CAP/TAB BY MOUTH ONCE A DAY ORAL ACTIVE EJ HANSON 2024 [facility] MAGNESIUM GLYCINATE CAP/TAB TAKE 1 CAP/TAB BY MOUTH ORAL ACTIVE EJ HANSON 2024 [facility] MULTIVITAMI NS CAP/TAB TAKE ONE TABLET BY MOUTH ONCE A DAY ORAL ACTIVE EJ HANSON 2024 [facility] Allergies, Adverse Reactions, Alerts Combined list of allergies from Department of [facility] and [facility] facilities. It does not include entries that were removed or entered in error. Substance Category Reaction Severity Reaction type Status Date Reported Comments Source CELECOXIB Propensity to adverse reactions to drug (finding) Eruption MODERATE active [address] [place] [address] CIPROFLOXACIN Propensity to adverse reactions to drug (finding) Muscle pain MODERATE active [address] [place] [address] DIVISION LATEX GLOVE Propensity to adverse reactions to drug (finding) Eruption MODERATE active [address] [place] [address] DIVISION Immunizations Combined list of available immunizations from the Department of [facility] and [facility] facilities. Immunization Series Date Given Administered By Site Reaction Lot Number CVX Code Drug Finisher [employer] Status Comments Source COVID-19 (MODERNA), MRNA, LNP-S, PF, 50 MCG/0.5 ML (AGES 12+ YEARS) 2022 312 complet ed HISTORICA L INFORMATI ON - FROM PATIENT'S WRITTEN RECORD, [facility] PNEUMOCOCCAL CONJUGATE PCV 13 2022 133 complet ed HISTORICA L INFORMATI ON - FROM PATIENT'S WRITTEN RECORD, [facility] ZOSTER RECOMBINANT 2 2022 187 complet ed HISTORICA L INFORMATI ON - FROM PATIENT'S WRITTEN RECORD, [facility] ZOSTER RECOMBINANT 1 2022 187 complet ed HISTORICA L INFORMATI ON - FROM PATIENT'S WRITTEN RECORD, [facility] COVID-19 (MODERNA), MRNA, LNP-S, BIVALENT, PF, 50 MCG/0.5 ML OR 25MCG/0.25 ML DOSE 1 2021 229 complet ed HISTORICA L INFORMATI ON - FROM PATIENT'S WRITTEN RECORD, [facility] COVID-19 (MODERNA), MRNA, LNP-S, PF, 100 MCG/0.5ML DOSE OR 50 MCG/0.25ML DOSE 2021 207 complet ed HISTORICA L INFORMATI ON - FROM PATIENT'S WRITTEN RECORD, [facility] COVID-19 (MODERNA), MRNA, LNP-S, PF, 100 MCG/0.5ML DOSE OR 50 MCG/0.25ML DOSE 2 2020 207 complet ed HISTORICA L INFORMATI ON - FROM PATIENT'S WRITTEN RECORD, [facility] COVID-19 (MODERNA), MRNA, LNP-S, PF, 100 MCG/0.5ML DOSE OR 50 MCG/0.25ML DOSE 1 2020 207 complet ed HISTORICA L INFORMATI ON - FROM PATIENT'S WRITTEN RECORD, [facility] TDAP 2008 115 complet ed HISTORICA L INFORMATI ON - FROM PATIENT'S WRITTEN RECORD, [facility] Vital Signs Combined list of inpatient and outpatient Vital Signs from Department of Defense and Veterans Affairs, ranging from 12 months to all on record, depending upon the facility. Vital Sign Value Date Comments Source SYSTOLIC BLOOD PRESSURE 142 03/31/2025 12:39:58 [facility] DIASTOLIC BLOOD PRESSURE 90 03/31/2025 12:39:58 [facility] PULSE OXIMETRY 97 % 03/31/2025 12:39:58 [facility] WEIGHT 176 03/31/2025 12:39:58 [facility] BMI 173 kg/m2 03/31/2025 12:39:58 [facility] HEIGHT 26.772 03/31/2025 12:39:58 [facility] TEMPERATURE 97.9 03/31/2025 12:39:58 [facility] PULSE 68 03/31/2025 12:39:58 [facility] RESPIRATION 18 03/31/2025 12:39:58 [facility] Encounters Combined list of: 1) Encounters from Department of Veterans Affairs facilities going backup to the last 18 months, not all VA inpatient encounters are included; 2) Encounters from the Department of [facility] facilities going backup to 280 months. Location Location Details Encounter Type Encounter Number Reason For Visit Attending Provider ADM Date DC Date Status Disposition Source [facility] MTMS BY PHARM ADDL 15 MIN [id number] Diagnos is: ICD-10- CM Z79.899 Other shelter (curren t) drug therapy Samia WEINER 03/27 [facility] Outpatient Encounter [id number] PHIGER ROMERO 03/28 [facility] Outpatient Encounter [id number] 03/28 [facility] Outpatient Encounter [id number] 03/28 [facility] Outpatient Encounter [id number] 03/28 [facility] OFFICE O/P EST HI 40 MIN [id number] Diagnos is: ICD-10- CM Z00.00 Encntr for general adult medical exam w/o abnorma l finding s Corby HANSON 03/31 [facility] Social History Combined list of available smoking, tobacco, and other social history from Department of Defense and Veterans Affairs facilities. Social History Type Response Date Comment Sourc e Tobacco smoking status NHIS VA-TOBACCO USE FORMER CIGARETTES 03/31/2025 [facility] History of tobacco use VA-TOBACCO NEVER USED OTHER TYPE 03/31/2025 [facility] Plan of Care List of future care activities from Department of Veterans Affairs facilities. Additional future care activities may be listed in the Assessment and Plan section. Date/Time Care Activity Care Activity Detail Facili ty 09/23/2025 AMBULATORY - MEDICINE AMBULATORY - MEDICI NE [facility]
--- OUTSIDE RECORDS SUMMARY | 2025-04-01 00:56 | XMS_ITS | Encounter Summary ---
Author Organization [facility] Address [address] [place] [address] Phone Care Team Providers Care Camouflage Specialist Name Role Phone Cheo Potts MD Primary Care Provider Neftaly Portillo MD Unavailable [phone] Qi Norris MD Unavailable [phone] Katharina Mac BROADCAST CHIEF ENGINEER Unavailable [phone] Tree Ruiz MD PhD Unavailable [phone] Oanh Trevizo BROADCAST CHIEF ENGINEER Unavailable Torin Almodovar MD Unavailable Encounter Details Date Type Department Care Team (Late st Contact Info) Description 03/31/2025 Telephone [facility] Cardiology [address] [facility] Advanced [facility] 8th [place] [address] [place] [address] Neftaly Portillo MD [address] [facility] [address] [place], [place] [id number] Social History Tobacco Use Types Packs/Day Years Used Date Smoking Tobacco: Former Cigarettes 1 13 1 9 - 1971 Passive Smoke Exposure: Past Smokeless Tobacco: Never Alcohol Use Standard Drinks/Week Comments Yes 7 (1 standard drink = 0.6 oz pur e alcohol) [facility] Utilities Answer Date Recorded In the past 12 months has [employer] electric, gas, oil, or water company threatened [...] often do you attend chur ch or pentecostalism services? Never 09/22/2023 Do you belong to any clubs o r organizations such as congregational groups, unions, fraternal or athletic groups, or [...] place to sleep or slept in a care home (including now)? No 09/22/2023 Personal Safety Answer Date Recorded Have you ever been in or are you currently in a harmful physical or emotional relationship or is someone making you feel afraid or unsafe? Denies 02/21/2025 Sex and Gender Information Value Date Recorded Sex Assigned at Not on file Legal Sex Male 3:18 AM HIGHBALLER Gender Identity Male 11/05/2020 12:05 PM HIGHBALLER Sexual Orientation Not on file documented as of this encounter Miscellaneous Notes * Telephone Encounter - Prisca Stevens - 03/31/2025 4:09 PM CDT Bandar Patient returning missed call. He can be reached at [phone]. documented in this encounter Plan of Treatment Not on file documented as of this encounter Visit Diagnoses Not on filedocumented in this encounter Care Teams Camouflage Specialist Relationship Specialty Start Date End Date Cheo Potts MD [address] [facility] [address] [place] [address] PCP - General 01/03/17 Neftaly Portillo MD [address] [facility] [address] [place] [address] Consulting Physician Cardiology 11/15/18 Qi Norris MD 2 [facility] [address] [place] [address] Referring Physician Gastroenterology 05/10/23 Katharina Mac NP [address] [address] Nurse Practitioner Cardiology 11/21/23 Tree Ruiz MD PhD 2 [facility] [address] Consulting Physician Cardiology 11/21/23 [place] [address] [id number] Nurse Practitioner Small Order Cutter 09/18/24 [place] [address] [address] Consulting Physician Pain Management 11/13/24 documented as of this encounter
--- OUTSIDE RECORDS SUMMARY | 2025-04-01 00:56 | XMS_ITS | Encounter Summary ---
Author Organization [facility] Address [address] [place] [address] Phone Care Team Providers Care Product Safety Specialist Name Role Phone Cheo Potts MD Primary Care Provider Marques Barksdale DO Unavailable [phone] Barbara Warner APRN, WINDOW TRIMMER Unavailable Qi Norris MD Unavailable [phone] Reason for Visit * Reason Comments Medication Refill Encounter Details Date Type Department Care Team (Late st Contact Info) Description 08/23/2024 Refill [facility] - Gastroenterology [facility] [address] [place] [id number] Barbara Warner APRN, WINDOW TRIMMER [address] [place] [address] Medication Refill Social History Tobacco Use Types [...] Oanh Recinos RN - 08/23/2024 1:57 PM LADLER Medication refilled and signed per [facility] chronic medication standing order for pediatric and adult patients. ER documented in this encounter Plan of Treatment Not on file documented as of this encounter Visit Diagnoses Diagnosis Gastroesophageal reflux disease, unspecified whether esophagitis present documented in this encounter Care Teams Product Safety Specialist Relationship Specialty Start Date End Date Cheo Potts MD [address] [place] [address] [place] [address] PCP - General Family Medicine 11/09/15 Marques Barksdale DO [address] [place] [address] [place] [address] Gastroenterology 11/12/15 Barbara Warner APRN, WINDOW TRIMMER [address] [place] [address] Nurse Practitioner Advanced Practice Nurse 10/24/22 Qi Norris MD [address] [place] [address] Consulting Physician Gastroenterology 05/12/22 documented as of this encounter
--- OUTSIDE RECORDS SUMMARY | 2025-04-01 00:56 | XMS_ITS | Encounter Summary ---
Author Organization [facility] Address [address] [place] [address] Phone Care Team Providers Care Brand Marketing Specialist Name Role Phone Cheo Potts MD Primary Care Provider Neftaly Portillo MD Unavailable [phone] Tree Ruiz MD PhD Unavailable [phone] Katharina Mac DUPLICATOR PUNCH SET UP OPERATOR Unavailable Qi Norris MD Unavailable [phone] Yuly Nieves RN Unavailable [phone] Katharina Mac DUPLICATOR PUNCH SET UP OPERATOR Unavailable Tree Ruiz MD PhD Unavailable [phone] Oanh Trevizo DUPLICATOR PUNCH SET UP OPERATOR Unavailable Oanh Trevizo DUPLICATOR PUNCH SET UP OPERATOR Unavailable Torin Almodovar MD Unavailable Encounter Details Date Type Department Care Team (Latest Contact Info) Description 01/25/2023 Orders Only [facility] Berenice Olivares, RN [address] [facility] [address] [place] [address] Social History Tobacco Use Types [...] on file Legal Sex Male 3:18 AM TROUBLE TRACER Gender Identity Male 11/05/2020 12:05 PM TROUBLE TRACER Sexual Orientation Not on file documented as of this encounter Plan of Treatment Not on file documented as of this encounter Procedures Procedure Name Priority Date/Time Associated Diagnosis Comments SCAN - LABS 01/25/2023 documented in this encounter Results * SCAN - LABS (01/25/2023) us Berenice Olivares RN Final Result documented in this encounter Visit Diagnoses Not on filedocumented in this encounter Care Teams Brand Marketing Specialist Relationship Specialty Start Date End Date Cheo Potts MD [address] [place], [place] [id number] PCP - General 01/03/17 Neftaly Portillo MD [address] [facility] [address] [facility] [address] [place] [address] Consulting Physician Cardiology 11/15/18 Tree Ruiz MD PhD [address] [facility] [address] [facility] [address] [place] [address] Referring Physician Cardiology 12/10/20 11/20/23 Katharina Mac NP [address] [facility] [address] [facility] [address] [place] [address] Referring Physician Cardiology 12/10/20 11/20/23 Qi Norris MD [address] [address] Referring Physician Gastroenterology 05/10/23 Yuly Nieves, RN [address] [place] [address] SHOP Outpatient Plant Quality Manager 09/22/23 10/18/23 Katharina Mac, DEBORA [address] [place] [address] Nurse Practitioner Cardiology 11/21/23 Tree Ruiz MD PhD [address] [place] [address] Consulting Physician Cardiology 11/21/23 [place] [address] [address] [facility] [address] [place] [address] Nurse Practitioner Mat Tester 07/18/24 11/12/24 [place] [address] [address] [facility] [address] [place] [address] Nurse Practitioner Mat Tester 09/18/24 [place] [address] [address] [facility] [address] [place] [address] Consulting Physician Pain Management 11/13/24 documented as of this encounter
--- OUTSIDE RECORDS SUMMARY | 2025-04-01 00:56 | XMS_ITS | Clinical Summary ---
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 3 History of alcohol abuse 07/16/2021 Hepatomegaly 07/16/2021 Chronic idiopathic constipation 07/16/2021 Gastroesophageal reflux disease without esophagi tis 07/16/2021 PAD (peripheral artery disease) 02/26/2019 Coronary artery disease invo lving [place] coronary artery of [place] heart without angina pectoris 01/30/2019 Overview (10/24/2022): Added automatically from request for surgery [id number] Sick sinus syndrome 04/20/2018 Overview (10/24/2022): Added automatically from request for surgery [id number] Last Assessment & Plan: Cardiac resynchronization defibrillator [...] 03/08/2012 Colorectal Cancer Screening 03/19/2025 Influenza Immunization (#1) 05/05/202512/2022, 06/04/2023, 05/30/2022, Additional history exists Zoster Immunization [...] Recently Relevant to Health Maintenance Insurance MEDICARE [facility] Care Teams Home Appliance Technician Relationship Specialty Start Date End Date Cheo Potts MD [address] [place] [address] PCP - General Family Medicine 11/09/15 Marques Barksdale DO [address] [place] [address] Gastroenterology 11/12/15 Barbara Warner APRN, AVIATION ORDNANCE OFFICER [address] [place] [address] Nurse Practitioner Advanced Practice Nurse 10/24/22 Qi Norris MD [address] [place] [address] Consulting Physician Gastroenterology 05/12/22
--- OUTSIDE RECORDS SUMMARY | 2025-04-01 00:56 | XMS_ITS | Encounter Summary ---
Author Organization [facility] Address [address] [place] [address] Phone Care Team Providers Care Art Handler Name Role Phone Cheo Potts MD Primary Care Provider Neftaly Portillo MD Unavailable [phone] Tree Ruiz MD PhD Unavailable [phone] Katharina Mac LEGAL ADMINISTRATIVE ASSISTANT Unavailable [phone] Qi Norris MD Unavailable [phone] Yuly Nieves RN Unavailable Katharina Mac LEGAL ADMINISTRATIVE ASSISTANT Unavailable [phone] Tree Ruiz MD PhD Unavailable [phone] Oanh Trevizo LEGAL ADMINISTRATIVE ASSISTANT Unavailable [phone] Oanh Trevizo LEGAL ADMINISTRATIVE ASSISTANT Unavailable Torin Almodovar MD Unavailable [phone] Reason for Visit * Reason Onset Date Comments CALL BACK 04/20/2018 Encounter Details Date Type Department Care Team (Late st Contact Info) Description 04/20/2018 Telephone [facility] Cardiology [address] [facility] 8th [place] [address] [place] [address] Tree Ruiz MD PhD [address] [facility] [address] [place] [address] CALL BACK Social History Tobacco Use Types Packs/Day Years Used Date Smoking Tobacco: Former Smokeless Tobacco: Never Alcohol Use Standard Drinks/Week Comments No 7 (1 standard drink = 0.6 oz pur e alcohol) Sex and Gender Information Value Date Recorded Sex Assigned at Not on file Legal Sex Male 3:18 AM SUPERVISOR FUR DRESSING Gender Identity Male 11/05/2020 12:05 PM SUPERVISOR FUR DRESSING Sexual Orientation Not on file documented as of this encounter Plan of Treatment Not on file documented as of this encounter Visit Diagnoses Not on filedocumented in this encounter Care Teams Art Handler Relationship Specialty Start Date End Date Cheo Potts MD [address] [place] [address] PCP - General 01/03/17 Neftaly Portillo MD [address] [facility] [address] [facility] [address] [place] [address] Consulting Physician Cardiology 11/15/18 Tree Ruiz MD PhD [address] [facility] [address] [place] [address] Referring Physician Cardiology 12/10/20 11/20/23 Katharina Mac NP [address] [facility] [address] [place] [address] Referring Physician Cardiology 12/10/20 11/20/23 Qi Norris MD [address] [address] Referring Physician Gastroenterology 05/10/23 Yuly Nieves, CLARISSA [address] [facility] [address] [place] [address] SHOP Outpatient Sales Order Specialist 09/22/23 10/18/23 Katharina Mac NP [address] [facility] [address] [place] [address] Nurse Practitioner Cardiology 11/21/23 Tree Ruiz MD PhD [address] [facility] [address] [place] [address] Consulting Physician Cardiology 11/21/23 [place] [address] [address] Nurse Practitioner Recovery Rn 07/18/24 11/12/24 [place] [address] [address] Nurse Practitioner Recovery Rn 09/18/24 [place] [address] [address] [facility] [address] [place] [address] Consulting Physician Pain Management 11/13/24 documented as of this encounter
--- OUTSIDE RECORDS SUMMARY | 2025-04-01 00:56 | XMS_ITS | Referral Summary ---
Author Organization [facility] Address [address] [place] [address] Care Team Providers Care Strategic Consultant Name Role Phone Cheo Potts MD Primary Care Provider Neftaly Portillo MD Unavailable [phone] Qi Norris MD Unavailable [phone] Katharina Mac SAMPLE COLOR MAKER Unavailable [phone] Tree Ruiz MD PhD Unavailable [phone] Oanh Trevizo SAMPLE COLOR MAKER Unavailable [phone] Torin Almodovar MD Unavailable Encounters Date Type Department Care Team Description 03/31/[address] [facility] Cardiology [address] [facility] Advanced Medicine 8th [place] [address] [place] [phone] Neftaly Portillo MD 03/31/[address] [facility] Cardiology [address] [facility] Advanced Medicine 8th [place] [address] [place] [address] Neftaly Portillo MD Dizziness 03/19/2025 11:15 AM CDT Office Visit [facility] Pulmonology [address] [facility] [address] [place] [address] Yasmeen Foley MD Dyspnea and respiratory abnormalities (Primary Dx); Atelectasis 03/12/2025 Telephone [facility] [address] [place] [address] Marlene Douglas 03/04/2025 11:45 AM CDT Office Visit 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 Cardiology [address] [facility] Advanced Medicine 8th [place] [address] [place] [address] Neftaly Portillo MD Procedure question/concern (cath) 02/20/2025 12:23 PM CDT - 02/20/2025 11:59 PM CDT Hospital Encounter [facility] [address] [place] [address] Lumbar spondylosis; Lumbar stenosis with neurogenic claudication Discharge Disposition: Discharge to home or self care 02/20/2025 1:15 PM CDT Office Visit [facility] Neurosurgery [address] [facility] Advanced [facility] 6th [place] [address] [place] [phone] Ewa Nath NP Lumbar stenosis with neurogenic claudication (Primary Dx); Lumbar spondylosis 02/17/2025 Results Follow-Up [facility] Cardiology [address] [place] [address] Medical Office Building [address] [place] [address] Kretzinger, Mae, RMA CBC with auto differential, Basic metabolic panel 01/30/[address] [facility] Neurosurgery [address] [facility] 6th [place] [address] [place] [address] Ewa Nath, DEBORA Lumbar spondylosis (Primary Dx); Lumbar stenosis with neurogenic claudication 01/29/[address] [facility] Neurosurgery [address] [facility] 6th [place] [address] [place] [address] Ewa Nath, DEBORA 01/17/[address] [facility] Neuro Sleep [address] [facility] 6th Floor [address] [place] [address] Rin Knapp RN DME order 01/17/2025 2:30 PM CDT Office Visit [facility] Orthopaedic Surgery [address] [facility] 2nd Floor [address] [place] [address] Bell Smith PA Primary osteoarthritis of both knees (Primary Dx) 01/16/[address] [facility] Stroke [address] [place] [phone] Mauro Zamora MD CORNEL (obstructive sleep apnea) (Primary Dx) 01/16/[address] [facility] Neuro Sleep [address] [place] [address] Rin Knapp, CLARISSA 01/08/2025 Patient Message [facility] [address] [place] [address] Torin Almodovar MD PT 01/07/2025 12:45 PM CDT - 01/07/2025 11:59 PM CDT Hospital Encounter [facility] [address] [place] [address] Oanh Trevizo NP Spinal stenosis of lumbar region without neurogenic claudication (Primary Dx); Lumbar radiculopathy; Primary hypertension Discharge Disposition: Discharge to home or self care 01/06/[address] [facility] Cardiology [address] [facility] Medicine 8th [place] [address] [place] [address] Neftaly Portillo MD Dizziness; Chest Pain; Procedure ([facility]) 01/01/[address] [facility] Cardiology [address] [facility] Advanced Medicine 8th [place] [address] [place] [address] Neftaly Portillo MD Medical Records Request 12/31/2024 Telephone [facility] [address] [place] [address] [facility] (Tramadol after seizure) from Last 3 Months Allergies Active Allergy Reactions Criticality Noted Date Comments Celecoxib Other (See comments) Low Altered depth perception Ciprofloxacin Other (See comments) Low 12/06/2017 FEELS BAD Latex Rash,Itching Medium 04/11/2017 Medications calcium carbonate-vitamin D3 1,500 mg (600mg elemental) -800 unit per tabletIndications :Hypocalcemia Prevention,Preven tion of Vitamin D Deficiency 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 mouth rehabilitation counselor 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 Active coenzyme Q10 200 mg capsuleIndication s:supplement Take 1 capsule (200 mg total) by mouth nightly Active magnesium oxide 200 mg tablet,chewableIn dications:supplem ent Take 200 mg by mouth rehabilitation counselor 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 Active polyethylene glycol (MIRALAX) 17 gram packetIndications :constipation Take 1 packet (17 g total) by mouth nightly Active multivitamin no.44-vit D3-K 1,000-800 unit-mcg capsuleIndication s:Mineral Deficiency Prevention,Vitami n Deficiency Prevention 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 mouth rehabilitation counselor 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 Active azelastine (ASTELIN) 137 mcg [...] 1 tablet (5 mg total) by mouth rehabilitation counselor 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 06/16/20 22 Active cholecalciferol 400 [...] GI bleeding 02/08/2023 Lumbar facet arthropathy 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 3 Lumbar radiculopathy 09/13/2022 Chronic midline low back pain without sciatica 0 09/13/2022 DDD (degenerative disc disease), lumbar 09/13/19 23 Sacroiliitis 09/13/2022 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 Chronic idiopathic constipation 07/16/2021 Hepatomegaly 07/16/2021 History of alcohol abuse 07/16/2021 PAD (peripheral artery disease) 02/26/2019 Coronary artery disease invo lving cabazon coronary artery of cabazon heart without angina pectoris 01/30/2019 Overview (01/30/2019): Added automatically from request for surgery [id number] Abnormal EKG 01/30/2019 Overview (01/30/2019): Added automatically from request for surgery [id number] Sick sinus syndrome 04/20/2018 Overview (04/20/2018): Added automatically from request for surgery [id number] Assessment & Plan (04/27/2018 8:59 AM CDT): [...] PM CDT): - mild 3v dz on [facility] 03/2015 - ct ASA, statin Dizziness [...] 07/03/2012 Ascending aortic aneurysm 07/03/2012 Atrial fibrillation ([facility]) 01/23/2008 Referred otalgia 03/15/2007 Inguinal hernia 04/19/2005 [...] drink = 0.6 oz pur e alcohol) [facility]X Answer Date Recorded In the past 12 months has [employer], gas, oil, or water [employer] threatened to shut off services in [...] week 09/22/2023 How often do you attend [facility] or baptism services? 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 Sexual Orientation Not on file Last Filed [...] 03/19/2025 11:28 AM CDT Plan of Treatment Not on file Medical Devices Implanted Type Area Infectious Diseases Physician Device Identifier Shelf Expiration Date Model / Serial / Lot Medtronic Cardiac Rhythm Mgmt 5076-52 Capsurefix Novus 6.2fr 2mm 52cm Bipolar Screw In Implantable Latex Free - [id number] - [id number] Implanted:Qty: 1 on 04/24/2018 by Osmany Pina MD at [facility] Pacemaker Left: Heart Medtronic Cardiac Rhythm Mgmt [id number] 03/08/2020 5076-52 / [id number] / Medtronic Cardiac Rhythm Mgmt 5076-45 Capsurefix Novus Od6.2 Fr; Odsec2 Mm L45 Cm Bipolar; Screw In; Im - [id number] - [id number] Implanted:Qty: 1 on 04/24/2018 by Osmany Pina MD at [facility] Pacemaker Left: Heart Medtronic Cardiac Rhythm Mgmt [id number] 02/13/2020 5076-45 / [id number] / Medtronic Inc [id number] Attain Performa Starfix 5.3fr 5.1fr 88cm Quadripolar Is4-Llll Latex Free - [id number] - [id number] Implanted:Qty: 1 on 04/24/2018 by Osmany Pina MD at [facility] Pacemaker Left: Heart Medtronic Inc 02/15/2020 [id number] / [id number] / Pacemaker Cardiac 11mm 19.9cu Cm 46.5x59mm Rain Surescan - [id number] - [id number] Implanted:Qty: 1 on 04/24/2018 by Osmany Pina MD at [facility] Pacemaker Left: Chest Medtronic Inc 06/17/2019 [id number] / [id number] / [employer] Device Clsr Perclose Prostyle Sut-Mediatd Closure-Repair Sys 52280-85 - [id number] - [id number] Implanted:Qty: 1 on 09/20/2023 by Antoine Nelson MD at [facility] Vascular Closure Device N/A: Femoral Vein [employer] 05/04/2025 11434-59 / [id number] / [id number] Procedures Procedure Name Priority Date/Time Associated Diagnosis Comments ME ARTHROCENTESIS ASPIR&/INJ MAJOR JT/BURSA W/O US Routine 03/04/2025 11:45 AM CDT Primary osteoarthritis of both knees LEFT HEART CATHETERIZATION WITH CORONARY ANGIOGRAPHY AND WITH AND WITHOUT LEFT VENTRICULOGRAM Routine 02/21/2025 12:06 PM CDT Chest pain, unspecified type 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 Dizziness XR LUMBAR SPINE AP LAT FLEX EX Schedule Routine, Read Routine (OP Routine) 02/20/2025 12:32 PM CDT Lumbar spondylosis Lumbar stenosis with neurogenic claudication BASIC METABOLIC PANEL Routine 02/13/2025 11:56 AM CDT Dizziness Chest pain, unspecified type Primary hypertension Coronary artery disease involving cabazon coronary artery of cabazon heart without angina pectoris CBC WITH AUTO DIFFERENTIAL Routine 02/13/2025 11:56 AM CDT Dizziness Chest pain, unspecified type Primary hypertension Coronary artery disease involving cabazon coronary artery of cabazon heart without angina pectoris ME ARTHROCENTESIS ASPIR&/INJ MAJOR JT/BURSA W/O US Routine 01/17/2025 2:30 PM CDT Primary osteoarthritis of both knees CTA ABDOMINAL AORTA AND BILATERAL ILIOFEMORAL RUNOFF Schedule Routine, Read Routine (OP Routine) 02/18/2019 3:29 PM CDT Abnormal ankle brachial index (ODALIS) Pain in both lower extremities from Last 3 Months or Most Recently Relevant to Health Maintenance Results * ME ARTHROCENTESIS ASPIR&/INJ MAJOR JT/BURSA W/O US (03/04/2025 [...] appropriate. No short V-V intervals. Presenting Rhythm (ME) Atrial Pacing-BiVentricular Pacing (AP-BiVP) --- AP/BVP 60 bpm. Arrhythmic events (AE) No new arrhythmic events in monitoring period --- Since 04/24/24: No AHR or VHR episodes. Anticoagulation (AC) Patient on anticoagulant therapy Patient prescribed Apixaban (Eliquis) Transmission Information (TI) Device Summary Report Scheduled [employer]-P transmission. Battery status ok (estimated 1.2 years remaining). AP 65.8%. 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 No AHR or VHR episodes. Stable [...] unsuccessful. Adjusted Risk of Stroke for 4 [id number] Scores in Non valvular Atrial Fib [id number] acronym[2] Score [id number] acronym Unadjusted ischemic stroke rate (% per year)* Congestive HF 1 0 0.2 Hypertension 1 1 0.6 Age >=75 years 2 2 2.2 Diabetes mellitus 1 3 3.2 Stroke/TIA/TE 2 4 4.8 Vascular disease (prior MT, PAD, or aortic plaque) 1 5 7.2 [...] used for local anesthesia. 5. A 5F Ord sheath was placed in the right radial [...] complications were Noted. Pt remained hemodynamically stable. [id number] I personally performed or supervised the procedure [...] about verbage above please contact me at [phone]. Narrative 02/21/2025 6:13 PM CDT Table formatting from the original result was not included. CARDIAC CATHETERIZATION Patient: Donald Fatima [id number] : 1940 Date of Service: 02/21/2025 FINAL [...] followed by Dr. Qi Norris MD at [facility] he stated he is off aspirin [...] per tablet 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 mouth rehabilitation counselor 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 cholecalciferol 400 unit capsule Take 200 Units by mouth every other day coenzyme Q10 200 mg capsule Take 1 capsule (200 mg total) by mouth nightly dapagliflozin propanediol (FARXIGA) 10 mg tablet Take 1 tablet (10 mg total) by mouth daily 90 tablet 3 finasteride (PROSCAR) 5 mg tablet Take 1 tablet (5 mg total) by mouth rehabilitation counselor 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 fluocinolone in oil (DermOtic) 0.01 [...] mg tablet,chewable Take 200 mg by mouth rehabilitation counselor 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 multivitamin no.44-vit D3-K 1,000-800 unit-mcg capsule 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 mouth rehabilitation counselor 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 mupirocin (BACTROBAN) 2 % ointment [...] Laterality Date BACK SURGERY CARDIAC CATHETERIZATION CHOLECYSTECTOMY 2010 FLUORO GUIDED ASPIRATION TMJ LEFT Left 07/18/2023 [...] signed by: Aliza Lee MD Ewa Nath SAMPLE COLOR MAKER IMG XR PROCEDURES Final Result * CBC with auto differential (02/13/2025 11:56 AM CDT) WBC 5.3 3.8 - 10.8 Thousand/u L [facility] RBC, POC 4.55 4.20 - 5.80 Million/uL [facility] Hgb 14.4 13.2 - 17.1 g/dL [facility] Hct 43.9 38.5 - 50.0 % [facility] MCV 96.5 80.0 - 100.0 fL [facility] MCH 31.6 27.0 - 33.0 pg [facility] MCHC 32.8 32.0 - 36.0 g/dL [facility] Comment: For adults, a slight decrease in the calculated MCHC value (in the range of 30 to 32 g/dL) is most likely not clinically significant; however, it should be interpreted with caution in correlation with other red cell parameters and the patient's clinical condition. Rdw 13.3 11.0 - 15.0 % [facility] Platelets 254 140 - 400 Thousand/u L [facility] MPV 9.1 7.5 - 12.5 fL [facility] Neutrophils, abs 2,544 1,500 - 7,800 cells/uL [facility] Lymphocytes, abs 2,104 850 - 3,900 cells/uL [facility] Monocyte abs 541 200 - 950 cells/uL [facility] Eosinophils, abs 69 15 - 500 cells/uL [facility] Basophils, abs 42 0 - 200 cells/uL [facility] Neutrophils 48 % [facility] Lymphocyte pct 39.7 % [facility] Monocytes 10.2 % [facility] Eosinophils 1.3 % [facility] Basophils 0.8 % [facility] Blood 02/13/2025 11:5 6 AM CDT 02/13/2025 11:57 AM CDT Narrative [facility] - 02/14/2025 3:06 AM CDT FASTING:NO FASTING: NO us Neftaly Portillo MD LAB BLOOD ORDERABLES Final Res ult [facility] [address] [place] [address] * (ABNORMAL) Basic metabolic panel (02/13/2025 11:56 AM CDT) [facility] Glucose 93 65 - 99 mg/dL [facility] Comment: Fasting reference interval BUN 13 7 - 25 mg/dL [facility] Creatinine 0.64(L) 0.70 - 1.22 mg/dL [facility] eGFR 95 > OR = 60 mL/min/1.7 3m2 [facility] BUN/creat ratio 20 6 - 22 (calc) [facility] Sodium 137 135 - 146 mmol/L [facility] Potassium, pl 4.1 3.5 - 5.3 mmol/L [facility] Chloride 100 98 - 110 mmol/L [facility] CO2 32 20 - 32 mmol/L [facility] Calcium 9.0 8.6 - 10.3 mg/dL [facility] Blood 02/13/2025 11:5 6 AM CDT 02/13/2025 11:57 AM CDT Narrative [facility] - 02/14/2025 3:06 AM CDT FASTING:NO FASTING: NO us Neftaly Portillo MD LAB BLOOD ORDERABLES Final Res ult [facility] [address] [place] [address] * ME ARTHROCENTESIS ASPIR&/INJ MAJOR JT/BURSA W/O US (01/17/2025 [...] Recently Relevant to Health Maintenance [place] [address] [facility] MEDICARE SUPPLEMENT MEDICARE MEDICARE [facility] MEDICARE [facility] MEDICARE SUPPLEMENT MEDICARE [facility] Address: [address] [address] [facility] MEDICARE SUPPLEMENT Advance Directives For more information, please contact: [phone] * Full Code (Latest Code Status on File) Date Activated Date Inactivated Comments 02/21/2025 9:02 AM 02/22/2025 4:33 AM * Full Code Date Activated Date Inactivated Comments 09/20/2023 6:27 PM 09/21/2023 7:45 PM * Full Code Date Activated Date Inactivated Comments 04/24/2018 5:50 PM 04/27/2018 2:46 PM * Full Code Date Activated Date Inactivated Comments 03/24/2018 11:24 PM 03/25/2018 4:51 PM Care Teams Strategic Consultant Relationship Specialty Start Date End Date Cheo Potts MD [address] [place] [address] PCP - General 01/03/17 Neftaly Portillo MD [address] [facility] [address] [place] [address] Consulting Physician Cardiology 11/15/18 Qi Norris MD 2 [facility] [address] [place] [address] Referring Physician Gastroenterology 05/10/23 Katharina Mac, DEBORA [address] [address] Nurse Practitioner Cardiology 11/21/23 Tree Ruiz MD PhD 2 [facility] [address] [place] [address] Consulting Physician Cardiology 11/21/23 Oanh Trevizo, DEBORA [address] [facility] [address] [place] [address] Nurse Practitioner Alarm Adjuster 09/18/24 [place] [address] [facility] [address] [place] [place] [address] Consulting Physician Pain Management 11/13/24
[2025-04-01 01:00] LABS: Hematocrit 40.2 % (42.0-52.0); Hemoglobin 14.0 g/dL (14.0-18.0); Immature Granulocyte Percent A 0.5 % (0-0.5); Lymphocytes Absolute Auto 1.87 K/mm3 (0.9-3.2); Mean Corpuscular HGB Conc 34.8 g/dl (32-36); Mean Corpuscular Hemoglobin 32.1 pg (26-34); Mean Corpuscular Volume 92.2 fl (80-100); Nucleated Red Blood Cells Absolute Auto 0.000 K/mm3 (0.0-0.012); Nucleated Red Blood Cells Perc 0.0 % (0.0-0.2); Platelet Count Result 192 k/mm3 (150-375); Red Blood Count 4.36 M/mm3 (4.6-6.20); White Blood Count 5.6 K/mm3 (4.5-10.0)
[2025-04-01 01:21] LABS: Alanine Aminotransferase 25 U/L (6-50); Albumin Level 3.6 g/dL (3.5-5.1); Alkaline Phosphatase 44 U/L (38-126); Anion Gap 7 mmol/L (4-12); Aspartate Amino Transferase 29 U/L (17-59); Bilirubin,Total 0.5 mg/dL (0.2-1.3); Blood Urea Nitrogen 15 mg/dL (9-20); Calcium 8.8 mg/dL (8.4-10.2); Carbon Dioxide 23 mmol/L (22-30); Chloride 99 mmol/L (98-107); Estimated CRCL calculation 87 ml/min; Estimated Glomerular Filt Rate > 60; Glucose 129 mg/dL (65-110); Potassium 3.6 mmol/L (3.4-5.0); Sodium 129 mmol/L (137-145); Total Protein 6.0 g/dL (6.3-8.2)
[2025-04-01 01:32] LABS: Troponin I < 0.012 ng/mL (0.000-0.034)
[2025-04-01] MEDS: MECLIZINE HCL 25 MG TABLET PO (01:52)
--- NOTE | 2025-04-01 02:02 | ED.DIZZY ---
HPI - Dizziness General Chief Complaint: Dizziness Stated Complaint: DIZZY, NAUSEA, DIFFICULTY IN BREATHING Time Seen by Provider: 04/01/25 00:34 History of Present Illness HPI Narrative: Patient has a history of vertigo, as well as heart disease with pacemaker. Has an appointment with his piercing specialist this morning. Once or twice over last 2 months, he has had episodes where the room starts spinning around him, these episodes are generally short and resolve, [facility] and was told that he may need to go to the hospital, however the episode resolved completely and he felt normal and went home. While trying to sleep tonight, he became more worried and decided to come in to get checked out. He did feel slightly nauseous while in the EMS transport and was given some nausea medication with improvement in symptoms. Currently just feels sleepy. No chest pain, shortness of breath, dizziness, lightheadedness, vertigo at this time. Related Data Home Medications ?Medication ?Instructions ?Recorded ?Confirmed ?Last Taken ?Type coenzyme Q10 200 mg capsule (Co 200 mg PO DAILY 07/09/19 03/13/25 11/11/20 History Q-10) magnesium 200 mg tablet 200 mg PO DAILY 07/09/19 03/13/25 11/11/20 History sotalol 120 mg tablet 120 mg PO Q12H 03/03/20 03/13/25 11/12/20 08:30 History calcium carbonate (Calcium 600) 600 mg PO DAILY 07/29/20 03/13/25 11/11/20 History polyethylene glycol 3350 17 17 g PO DAILY 10/12/22 03/13/25 Unknown History gram/dose oral powder finasteride 5 mg tablet 5 mg PO DAILY 01/11/23 03/13/25 Unknown History prochlorperazine maleate 10 mg 10 mg PO DAILY 01/11/23 03/13/25 Unknown History tablet dapagliflozin propanediol 5 mg 5 mg PO DAILY 01/03/24 03/13/25 Unknown History tablet (Farxiga) atorvastatin 40 mg tablet 20 mg PO DAILY 09/12/24 03/13/25 Unknown History gabapentin 100 mg capsule 100 mg PO TID 12/31/24 03/13/25 Unknown History spironolactone 25 mg tablet 12.5 mg PO DAILY 12/31/24 03/13/25 Unknown History acetaminophen 325 mg capsule 325 mg PO Q6H PRN 03/13/25 03/13/25 Unknown History amoxicillin 500 mg capsule 500 mg PO Q8H 03/13/25 03/13/25 Unknown History sacubitril 24 mg-valsartan 26 mg 1 tablet PO BID 03/13/25 03/13/25 Unknown History tablet (Entresto) Allergies Allergy/AdvReac Type Severity Reaction Status Date / Time celecoxib Allergy Intermediate Gastrointestinal Verified 03/13/25 11:25 Upset ciprofloxacin Allergy Intermediate Muscle pain Verified 03/13/25 11:25 latex Allergy Intermediate Rash Verified 03/13/25 11:25 NSAIDS (Non-Steroidal Allergy Intermediate Gastrointestinal Verified 03/13/25 11:25 Anti-Inflamma Upset Review of Systems Review of Systems: All systems reviewed & are unremarkable except as noted in HPI and below PMFSH Past Medical History Medical History Paroxysmal A-fib Hypertensive heart disease with heart failure CORNEL (obstructive sleep apnea) GERD (gastroesophageal reflux disease) Epigastric pain History of gastroesophageal reflux (GERD) History of stomach ulcers Depression Degenerative arthritis of knee, bilateral Vascular disease Hypertension Heart disease Coronary artery disease Arrhythmia Anemia Cholecystostomy care Hernia Chronic insomnia Surgical History Surgical History History of permanent cardiac pacemaker placement History of cholecystectomy History of hernia repair Family History Family History Mother Hypertension Patient's mother is in good health Sibling Hypertension Father Family history of heart disease in male family member before age 55 Other Cerebrovascular accident Diabetes mellitus Family history of arthritis Family history of cardiovascular disease Family history of kidney disease Social History Social History Social History: Smoking packs per day: 0 Smoking cigarettes per day: 0.0 Years smoked: 11 Smoking pack-years: 0.00 Smoking status: Former smoker Tobacco type: cigarettes Second hand tobacco smoke exposure: No Smoking end date: 09/04/71 Alcohol intake: former Drinks per week: 7 Alcohol use details: WINE Substance use: former Substance use type: marijuana Other substance usage details: GUMMIES OCC. FOR KNEE PAIN CBD. Pt stopped using them 2 months ago. Lack of Transportation: No Lack of Food: Never True Current Housing: I Have Housing Concerned About Future Housing: No Difficulty Paying Gas/Electric Bills: No Difficulty Paying for Meds: No Currently Unemployed: No Education: Master's Degree or Higher Difficulty w/ Childcare or Family Care: No Living arrangements: alone Occupation/Education: retired Gender identity (if verbalized by the patient): Male Sexual Orientation (if Verbalized by the Patient): Straight or Heterosexual Spiritual care concerns: No Exam Narrative: EXAMINATION OF ORGAN SYSTEMS/BODY AREAS: Constitutional: Vital signs per nursing GENERAL:[No acute distress, non-toxic appearing.] HEAD: Normal with no signs of head trauma. EYES: EOMI, conjunctiva normal ENT: Hearing grossly intact LUNGS: Nonlabored breathing. HEART: [Regular rate and rhythm] ABD: [Soft], [nontender to palpation] EXT: Normal range of motion SKIN: [No rashes or lesions.] NEURO: [Alert and oriented x 3. No gross focal sensory or strength deficits.] No facial droop, speaking with clear speech, ambulating with normal steady gait. PSYCH: Normal affect Course Vital Signs Vital signs: Vital Signs Temperature 97 F L 04/01/25 00:09 Pulse Rate 61 04/01/25 00:09 Respiratory Rate 16 04/01/25 00:09 Blood Pressure 141/80 H 04/01/25 00:09 Pulse Oximetry 97 04/01/25 00:09 Oxygen Delivery Room Air 04/01/25 00:09 Temperature 97 F L 04/01/25 00:09 Pulse Rate 77 04/01/25 00:14 Respiratory Rate 16 04/01/25 00:09 Blood Pressure 141/80 H 04/01/25 00:09 Pulse Oximetry 97 04/01/25 00:09 Oxygen Delivery Room Air 04/01/25 00:09 MDM - Dizziness MDM Narrative Medical decision making narrative: Patient presents here with dizziness/vertigo, he has had these symptoms in the past, initially was nauseous and given Zofran by EMS, know that he has arrived here he feels fine, just a little tired. He has follow-up with his medicaid billing specialist in the morning that he would like to get to, but wanted make sure everything checked out. He is very well-appearing here, no distress, breathing comfortably, normal oxygenation. Vital signs normal. I did obtain cardiac workup, this is unremarkable, other than chronic hyponatremia. Negative troponin here, chest x-ray on my independent interpretation does not show any obvious consolidations or effusions or signs of fluid overload. EKG my independent interpretation shows paced rhythm, normal rate, no obvious ST elevations or depressions or signs of acute ischemia or arrhythmia. Discussed this with patient, he feels well here, he was able to walk to the bathroom by himself without any issues or feeling lightheaded, and overall feels quite comfortable going home especially since he does not want missed his medicaid billing specialist appointment today. Since he is asymptomatic currently and has normal vital signs, and his description of the events was a brief episode of vertigo which she has had in the past, overall I have low concern for any acute emergency and I do feel comfortable with him following up since he has an appointment within the next 12 hours. He is given strict return precautions and he is agreeable to the plan. Lab Data 04/01/25 00:47 04/01/25 00:47 Labs: Lab Results 04/01/25 Range/Units 00:47 WBC 5.6 (4.5-10.0) K/mm3 RBC 4.36 L (4.6-6.20) M/mm3 Hgb 14.0 (14.0-18.0) g/dL Hct 40.2 L (42.0-52.0) % MCV 92.2 (80-100) fl MCH 32.1 (26-34) pg MCHC 34.8 (32-36) g/dl RDW 13.2 (11.5-14.5) % Plt Count 192 (150-375) k/mm3 MPV 8.6 (7.4-10.4) fl Immature Gran % (Auto) 0.5 (0-0.5) % Neut % (Auto) 53.1 (45.5-73.1) % Lymph % (Auto) 33.3 (18.3-44.2) % Vernon % (Auto) 11.0 H (2.6-8.5) % Eos % (Auto) 1.4 (0-4.4) % Baso % (Auto) 0.7 (0.2-1.2) % Lymph # (Auto) 1.87 (0.9-3.2) K/mm3 Vernon # (Auto) 0.6 (0.1-0.6) K/mm3 Eos # (Auto) 0.1 (0-0.3) K/mm3 Baso # (Auto) 0.0 (0.0-0.1) K/mm3 Abs Immat Gran (auto) 0.03 (0.00-0.031) K/mm3 Absolute Neuts (auto) 3.0 (1.3-6.7) K/mm3 Absolute Nucleated RBC 0.000 (0.0-0.012) K/mm3 Nucleated RBC % 0.0 (0.0-0.2) % Sodium 129 L (137-145) mmol/L Potassium 3.6 (3.4-5.0) mmol/L Chloride 99 (98-107) mmol/L Carbon Dioxide 23 (22-30) mmol/L Anion Gap 7 (4-12) mmol/L BUN 15 (9-20) mg/dL Creatinine 0.53 L (0.7-1.3) mg/dL Estim Creat Clear Calc 87 ml/min Estimated GFR > 60 (59 - ) Glucose 129 H (65-110) mg/dL Calcium 8.8 (8.4-10.2) mg/dL Total Bilirubin 0.5 (0.2-1.3) mg/dL AST 29 (17-59) U/L ALT 25 (6-50) U/L Alkaline Phosphatase 44 (38-126) U/L Troponin I < 0.012 (0.000-0.034) ng/mL Total Protein 6.0 L (6.3-8.2) g/dL Albumin 3.6 (3.5-5.1) g/dL Discharge Plan Discharge Clinical Impression: Vertigo Patient Disposition: Home Condition: Stable Instructions: Vertigo (ED) Additional Instructions: Please follow up with your medicaid billing specialist as scheduled; you can also follow up with your neurologist. You can always return to the ER for any further issues. Patient Language: Kenyan Prescriptions: New ondansetron 4 mg tablet,disintegrating 4 mg PO Q8H PRN (Reason: nausea and vomiting) Qty: 14 0RF meclizine 25 mg tablet 25 mg PO TID PRN (Reason: dizziness) Qty: 30 0RF No Action prochlorperazine maleate 10 mg tablet 10 mg PO DAILY finasteride 5 mg tablet 5 mg PO DAILY atorvastatin 40 mg tablet 20 mg PO DAILY coenzyme Q10 [Co Q-10] 200 mg capsule 200 mg PO DAILY magnesium 200 mg tablet 200 mg PO DAILY sotalol 120 mg tablet 120 mg PO Q12H dapagliflozin propanediol [Farxiga] 5 mg tablet 5 mg PO DAILY acetaminophen 325 mg capsule 325 mg PO Q6H PRN amoxicillin 500 mg capsule 500 mg PO Q8H polyethylene glycol 3350 17 gram/dose powder 17 g PO DAILY gabapentin 100 mg capsule 100 mg PO TID Patient Comments: as per pain management spironolactone 25 mg tablet 12.5 mg PO DAILY Patient Comments: as per cardio Entresto 24-26 mg tablet 1 tablet PO BID Patient Comments: Take 1 tab AM and 1 tab PM calcium carbonate [Calcium 600] 600 mg calcium (1,500 mg) Tablet 600 mg PO DAILY mupirocin [Centany] 2 % ointment 1 applic topical QID 5 Days Qty: 22 0RF azelastine 137 mcg (0.1 %) spray,non-aerosol See Rx Instructions .ROUTE .COMPLEX Qty: 30 3RF Dose Instruction: USE 1 SPRAY IN EACH NOSTRIL EVERY 12 HOURS Rx Instructions: USE 1 SPRAY IN EACH NOSTRIL EVERY 12 HOURS fluocinolone acetonide oil 0.01 % drops See Rx Instructions EACH EAR .COMPLEX Qty: 20 3RF Rx Instructions: Use as previously directed. Typically several drops, each ear, max two times per day. buspirone 5 mg tablet 5 mg PO BID Qty: 180 1RF Follow-up/Referrals: Cheo Potts MD [Primary Care Provider] - 2 Days Tarik Chatterjee MD [Physician] - 2 Days Tala Gamboa MD [Physician] - 2 Days
[2025-04-01 02:03] VITALS: BP 143/97; PULSE 68; RESP 17; O2SAT 100
[2025-04-01 02:04] VITALS: BP 143/97; PULSE 68; RESP 17; O2SAT 100
== END 2025-04-01 02:06 | disposition home or self-care (01) ==
PROVIDERS: Emergency Provider Emergency Medicine; PCP Family Medicine
DX: R42 Dizziness and giddiness (principal); Z95.0 Presence of cardiac pacemaker; I11.0 Hypertensive heart disease with heart failure; I50.9 Heart failure, unspecified; K21.9 Gastro-esophageal reflux disease without esophagitis; F32.A Depression, unspecified; I25.10 Atherosclerotic heart disease of native coronary artery without angina pectoris; D64.9 Anemia, unspecified; G47.30 Sleep apnea, unspecified
CPT/HCPCS: 36415; 71045; 80053; 84484; 85025; 93005; 99284; A9270

== ENCOUNTER 2025-04-16 16:02 | Emergency (ER) | payer MEDICARE, SELFPAY ==
--- NOTE | ~2025-04-16 | CT_ITS ---
EXAMINATION: CT brain wo con DATE: 04/16/2025 16:50 INDICATION: altered mental status . TECHNIQUE: Computed tomography (CT) of the head was performed without intravenous contrast. The mA wa s adjusted according to patient size. Iterative reconstruction technique was employed. The dose-lengt h product was 681.00 mGy-cm. COMPARISON: 09/09/2012. FINDINGS: No acute intracranial hemorrhage or extra-axial fluid collection. No hydrocephalus, mass, or herniation. No acute ischemic infarct. Unremarkable dural venous sinus attenuation. No acute osseous abnormality. Bilateral maxillary mucosal thickening, the remaining aerated spaces are clear. Mild atrophy and chronic white matter change. Atherosclerotic intracranial calcification. Bilateral l ens replacements. 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 Left basal ganglia calcification. IMPRESSION: No acute intracranial process. Reviewed, dictated and finalized at location K.
--- OUTSIDE RECORDS SUMMARY | 2025-04-16 16:05 | XMS_ITS | Encounter Summary ---
Author Organization [facility] Address [address] [place] [address] Phone Care Team Providers Care Nanotechnology Technician Name Role Phone Cheo Potts MD Primary Care Provider Marques Barksdale DO Unavailable [phone] Barbara Warner APRN, TEACHER'S ASSISTANT Unavailable Qi Norris MD Unavailable [phone] Reason for Visit * Reason Comments Medication Refill Encounter Details Date Type Department Care Team (Late st Contact Info) Description 08/23/2024 Refill [facility] - Gastroenterology [facility] [address] [place] [id number] Barbara Warner APRN, TEACHER'S ASSISTANT [address] [place] [address] Medication Refill Social History Tobacco Use Types [...] Oanh Recinos RN - 08/23/2024 1:57 PM PRODUCT MARKETING ANALYST Medication refilled and signed per [facility] chronic medication standing order for pediatric and adult patients. UCT MARKETING ANALYST documented in this encounter Plan of Treatment Not on file documented as of this encounter Visit Diagnoses Diagnosis Gastroesophageal reflux disease, unspecified whether esophagitis present documented in this encounter Care Teams Nanotechnology Technician Relationship Specialty Start Date End Date Cheo Potts MD [address] [place] [address] [address] [place] [address] PCP - General Family Medicine 11/09/15 Marques Barksdale DO [address] [place] [address] [place] [address] Gastroenterology 11/12/15 Barbara Warner APRN, TEACHER'S ASSISTANT [address] [place] [address] Nurse Practitioner Advanced Practice Nurse 10/24/22 Qi Norris MD [address] [place] [address] Consulting Physician Gastroenterology 05/12/22 documented as of this encounter
--- OUTSIDE RECORDS SUMMARY | 2025-04-16 16:05 | XMS_ITS | Clinical Summary ---
Author Organization [facility] Address [address], [facility] [address] [place] [address] Phone Care Team Providers Care Sand Molder Name Role Phone Cheo Potts MD Primary Care Provider Marques Barksdale DO Unavailable [phone] Barbara Warner APRN, ASSORTER Unavailable Qi Norris MD Unavailable [phone] Allergies Active Allergy Reactions Criticality Noted [...] low back pain without sciatica 0 09/13/2022 longterm current use of anticoagulant 3 History of alcohol abuse 07/16/2021 Hepatomegaly 07/16/2021 Chronic idiopathic constipation 07/16/2021 Gastroesophageal reflux disease without esophagi tis 07/16/2021 PAD (peripheral artery disease) 02/26/2019 Coronary artery disease invo lving [place] coronary artery of [place] heart without angina pectoris 01/30/2019 Overview (10/24/2022): Added automatically from request for surgery [id number] Sick sinus syndrome 04/20/2018 Overview (10/24/2022): Added automatically from request for surgery [id number] Last Assessment & Plan: Cardiac resynchronization defibrillator [...] Recently Relevant to Health Maintenance Insurance MEDICARE [facility] Care Teams Sand Molder Relationship Specialty Start Date End Date Cheo Potts MD [address] [place] [address] PCP - General Family Medicine 11/09/15 Marques Barksdale DO [address] [place] [address] Gastroenterology 11/12/15 Barbara Warner APRN, ASSORTER [address] [place] [address] Nurse Practitioner Advanced Practice Nurse 10/24/22 Qi Norris MD [address] [place] [address] Consulting Physician Gastroenterology 05/12/22
--- OUTSIDE RECORDS SUMMARY | 2025-04-16 16:05 | XMS_ITS | Encounter Summary ---
Author Organization [facility] Address [address] [place] [address] Phone Care Team Providers Care Wire Coiner Name Role Phone Cheo Potts MD Primary Care Provider Neftaly Portillo MD Unavailable Qi Norris MD Unavailable [phone] Katharina Mac SEA FOAM KISS MAKER Unavailable [phone] Tree Ruiz MD PhD Unavailable [phone] Oanh Trevizo SEA FOAM KISS MAKER Unavailable Torin Almodovar MD Unavailable Encounter Details Date Type Department Care Team (Late st Contact Info) Description 02/17/2025 Results Follow-Up [facility] Cardiology [address] [facility] [address] [place] [address] Mae Villanueva RMA CBC with auto differential, Basic metabolic panel Social History Tobacco Use Types Packs/Day Years Used Date Smoking Tobacco: Former Cigarettes Q uit: 1972 Passive Smoke Exposure: Past Smokeless Tobacco: Never Alcohol Use Standard Drinks/Week Comments Yes 7 (1 standard drink = 0.6 oz pur e alcohol) [facility] Utilities Answer Date Recorded In the past 12 months has [employer] electric, gas, oil, or water company threatened to shut off services in your home? No 09/22/2023 Social Connection and Isolation Panel Answer Date Recorded In a typical week, how many times do you talk on the phone with family, friends, or neighbors? More than three times a week 09/22/2023 How often do you get togethe r with friends or relatives? More than three times a week 09/22/2023 How often do you attend chur ch or moravian services? Never 09/22/2023 Do you belong to any clubs o r organizations such as religion groups, unions, fraternal or athletic groups, or [...] place to sleep or slept in a long-term (including now)? No 09/22/2023 Personal Safety Answer Date Recorded Have you ever been in or are you currently in a harmful physical or emotional relationship or is someone making you feel afraid or unsafe? 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 [address] [place] [address] Consulting Physician Cardiology 11/15/18 Qi Norris MD [address] [address] Referring Physician Gastroenterology 05/10/23 Katharina Mac NP [address] [address] Nurse Practitioner Cardiology 11/21/23 Tree Ruiz MD PhD [address] [address] Consulting Physician Cardiology 11/21/23 Oanh Trevizo, [place] [address] [address] [facility] [address] [place] [address] Nurse Practitioner Capital Markets Specialist 09/18/24 [place] [address] [address] [facility] [address] [place] [address] Consulting Physician Pain Management 11/13/24 documented as of this encounter
--- OUTSIDE RECORDS SUMMARY | 2025-04-16 16:05 | XMS_ITS | Encounter Summary ---
Author Organization [facility] Address [address] [place] [address] Phone Care Team Providers Care Education Technician Name Role Phone Cheo Potts MD Primary Care Provider Neftaly Portillo MD Unavailable [phone] Tree Ruiz MD PhD Unavailable [phone] Katharina Mac O AND M SUPERVISOR Unavailable [phone] Qi Norris MD Unavailable [phone] Yuly Nieves RN Unavailable Katharina Mac O AND M SUPERVISOR Unavailable Tree Ruiz MD PhD Unavailable [phone] Oanh Trevizo O AND M SUPERVISOR Unavailable [phone] Oanh Trevizo O AND M SUPERVISOR Unavailable Torin Almodovar MD Unavailable Encounter Details Date Type Department Care Team (Latest Contact Info) Description 10/05/2022 Orders Only [facility] Berenice Olivares, RN [address] [facility] [address] [place] [address] Social History Tobacco Use Types [...] on file Legal Sex Male 3:18 AM BODY REPAIRER Gender Identity Male 11/05/2020 12:05 PM BODY REPAIRER Sexual Orientation Not on file documented [...] on filedocumented in this encounter Care Teams Education Technician Relationship Specialty Start Date End Date Cheo Potts MD [address] [place], [place] [id number] PCP - General 01/03/17 Neftaly Portillo MD [address] [facility] [address] [place] [address] Consulting Physician Cardiology 11/15/18 Tree Ruiz MD PhD [address] [facility] [address] [place] [address] Referring Physician Cardiology 12/10/20 11/20/23 Katharina Mac NP [address] [facility] [address] [place] [address] Referring Physician Cardiology 12/10/20 11/20/23 Qi Norris MD [address] [address] Referring Physician Gastroenterology 05/10/23 Yuly Nieves, RN [address] [place] [address] SHOP Outpatient Hotel Manager 09/22/23 10/18/23 Katharina Mac, [place] [address] [place] [address] Nurse Practitioner Cardiology 11/21/23 Tree Ruiz MD PhD [address] [place] [address] Consulting Physician Cardiology 11/21/23 [place] [address] [facility] [address] [place] [address] Nurse Practitioner Sap Business Objects Developer 07/18/24 11/12/24 [place] [address] [facility] [address] [place] [address] Nurse Practitioner Sap Business Objects Developer 09/18/24 [place] [address] [facility] [address] [place] [address] Consulting Physician Pain Management 11/13/24 documented as of this encounter
--- OUTSIDE RECORDS SUMMARY | 2025-04-16 16:05 | XMS_ITS | Clinical Summary ---
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 Name Role Phone Cheo Potts MD Primary Care Provider Marty Torres MD Unavailable [phone] Qi Norris MD Unavailable [phone] Katharina Mac MEDICAL DOCTOR NUCLEAR MEDICINE Unavailable [phone] Tree Ruiz MD PhD Unavailable [phone] Oanh Trevizo MEDICAL DOCTOR NUCLEAR MEDICINE Unavailable Torin Almodovar MD Unavailable [phone] Allergies Active Allergy Reactions Criticality Noted Date Comments Celecoxib Other (See comments) Low Altered depth perception Ciprofloxacin Other (See comments) Low 12/06/2017 FEELS BAD Latex Rash,Itching Medium 04/11/2017 Medications calcium carbonate-vitamin D3 1,500 mg (600mg elemental) -800 unit per tabletIndications :Hypocalcemia Prevention,Preven tion of Vitamin D Deficiency 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 Active coenzyme Q10 200 mg capsuleIndication s:supplement Take 1 capsule (200 mg total) by mouth nightly Active magnesium oxide 200 mg tablet,chewableIn dications:supplem ent Take 200 mg 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 Active polyethylene glycol (MIRALAX) 17 gram packetIndications :constipation Take 1 packet (17 g total) by mouth nightly Active multivitamin no.44-vit D3-K 1,000-800 unit-mcg capsuleIndication s:Mineral Deficiency Prevention,Vitami n Deficiency Prevention 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 Active azelastine (ASTELIN) 137 [...] 1 tablet (5 mg total) 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 06/16/20 22 Active cholecalciferol 400 [...] pain 90 tablet 2 04/02/20 25 Active lutein 6 mg capsule Take by mouth 03/31/20 25 Active MAGNESIUM GLYCINATE ORAL Take by mouth 03/31/20 25 Active amoxicillin-clavu lanate (AUGMENTIN) 875-125 mg per tablet TAKE 1 TABLET BY MOUTH TWICE DAILY UNTIL GONE 03/20/20 25 Active multivit with minerals/lutein (MULTIVITAMIN 50 PLUS ORAL) 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 mouth daily 03/31/20 25 Active aspirin 81 mg enteric coated tablet Take 1 tablet (81 mg total) by mouth daily with breakfast 90 tablet 3 04/02/20 25 Active acetaminophen (TYLENOL ARTHRITIS PAIN [...] bleeding 02/08/2023 Lumbar facet arthropathy 09/20/2022 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 3 Lumbar radiculopathy 09/13/2022 Chronic midline low back pain without sciatica 0 09/13/2022 DDD (degenerative disc disease), lumbar 09/13/19 Sacroiliitis 09/13/2022 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 Chronic idiopathic constipation 07/16/2021 Hepatomegaly 07/16/2021 History of alcohol abuse 07/16/2021 PAD (peripheral artery disease) 02/26/2019 Coronary artery disease invo lving napaimute coronary artery of napaimute heart without angina pectoris 01/30/2019 Overview (01/30/2019): Added automatically from request for surgery [id number] Abnormal EKG 01/30/2019 Overview (01/30/2019): Added automatically from request for surgery [id number] Sick sinus syndrome 04/20/2018 Overview (04/20/2018): Added automatically from request for surgery [id number] Assessment & Plan (04/27/2018 8:59 AM CDT): [...] PM CDT): - mild 3v dz on [facility] 03/2015 - ct ASA, statin Dizziness 01/10/2017 [...] 40mg BID High risk medication use 11/04/2016 Dyspnea and respiratory abnormalities 06/20/2016 Chest pain 03/18/2016 Palpitations 03/02/2015 Left ventricular dysfunction 03/02/2015 Obstructive sleep apnea syndrome 03/02/2015 Cardiomyopathy 03/02/2015 Vitreous degeneration 10/16/2012 Myopia 09/10/2012 Stenosis of carotid artery 07/03/2012 Ascending aortic aneurysm 07/03/2012 Atrial fibrillation ([facility]/HCC) 01/23/2008 Referred otalgia 03/15/2007 Inguinal hernia 04/19/2005 Left bundle branch block (LBBB) 07/09/2003 Resolved Problems Problem Noted Date Diagnosed Date Resolved Date Nocturnal hypoxemia 02/26/2019 11/06/19 25 Encounters Date Type Department Care Team Description 04/04/2025 Results Follow-Up [facility] Cardiology [address] [place] [address] Office Building [address] [place] [address] Mae Villanueva RMA SCAN - LABS 04/04/2025 Results Follow-Up [facility] Cardiology [address] [place] [address] Office Building [address] [place] [address] Mae Villanueva RMA US Carotids Duplex Bilateral 04/03/2025 1:59 PM CDT - 04/03/2025 11:59 PM CDT Hospital Encounter [facility] Diagnostic Imaging [address] [place] [address] Atelectasis Discharge Disposition: Discharge to home or self care 04/03/2025 1:00 PM CDT - 04/03/2025 11:59 PM CDT Hospital Encounter [facility] Respiratory Therapy [address] [place] [address] Dyspnea and respiratory abnormalities Discharge Disposition: Discharge to home or self care 04/02/2025 1:54 PM CDT - 04/02/2025 11:59 PM CDT Hospital Encounter [facility] [address] [place] [address] Oanh Trevizo NP Sacroiliitis (Primary Dx); Chronic midline low back pain without sciatica; Lumbar radiculopathy; Spinal stenosis of lumbar region without neurogenic claudication; Primary hypertension Discharge Disposition: Discharge to home or self care 04/02/2025 11:30 AM CDT Ancillary Procedure [facility] [address] [facility] [address] [place] [address] Bilateral carotid bruits 04/01/2025 10:00 AM CDT Office Visit [facility] Cardiology [address] [facility] [address] [place] [address] Marty Torres MD Bilateral carotid bruits (Primary Dx); Paroxysmal atrial fibrillation (HCC) 04/01/2025 Orders Only [facility] CARDIOLOGY Berenice Olivares RN 03/31/2025 Telephone [facility] Cardiology [facility] [facility] [address]th [place] [address] [place] [address] Marty Torres MD 03/31/2025 Telephone [facility] Cardiology [facility] 8th [place] [address] [place] [address] Marty Torres MD Dizziness 03/19/2025 11:15 AM CDT Office Visit [facility] Pulmonology [address] [facility] [address] [place] [phone] Yasmeen Foley MD Dyspnea and respiratory abnormalities (Primary Dx); Atelectasis 03/12/2025 Telephone [facility] [address] [place] [address] Marlene Douglas 03/04/2025 11:45 AM CDT Office Visit [facility] Orthopaedic Surgery [address] [facility] 2nd Floor [address] [place] [address] Bell Smith PA Primary osteoarthritis of both knees (Primary Dx) 02/21/2025 10:50 AM CDT - 02/21/2025 11:55 AM CDT Surgery [address] [place] [address] Marty Torres MD LEFT HEART CATHETERIZATION WITH CORONARY ANGIOGRAPHY AND WITH OR WITHOUT LEFT VENTRICULOGRAM [id number] 02/21/2025 10:50 AM CDT - 02/21/2025 11:59 PM CDT Hospital Encounter [address] [place] [address] Marty Torres MD Chest pain, unspecified type; Coronary artery disease of napaimute artery of napaimute heart with stable angina pectoris; Dizziness Discharge Disposition: Discharge to home or self care 02/20/2025 1:15 PM CDT Office Visit [facility] Neurosurgery [address] [facility] [address] [facility] 6th [place] [address] [place] [phone] Ewa Nath NP Lumbar stenosis with neurogenic claudication (Primary Dx); Lumbar spondylosis 02/20/2025 12:23 PM CDT - 02/20/2025 11:59 PM CDT Hospital Encounter [facility] [address] [place], [place] [id number] Lumbar spondylosis; Lumbar stenosis with neurogenic claudication Discharge Disposition: Discharge to home or self care 02/20/2025 Telephone [facility] Cardiology [address] [facility] 8th [place] [address] [place] [phone] Marty Torres MD Procedure question/concern (cath) 02/17/2025 Results Follow-Up [facility] Cardiology [address] [facility] Medical Office Building [address] [place] [address] Mae Villanueva RMA CBC with auto differential, Basic metabolic panel 02/14/2025 4:35 PM CDT - 02/14/2025 11:59 PM CDT Hospital Encounter [facility] [employer] [address] [facility] [place] [address] Discharge Disposition: Discharge to home or self care 02/14/2025 Orders Only [facility] Cardiology [address] [facility] Medical Office Building [address] [place] [address] Tree Ruiz MD PhD 01/30/2025 Orders Only [facility] Neurosurgery [address] [facility] 6th [place] [address] [place] [phone] Ewa Nath, DEBORA Lumbar spondylosis (Primary Dx); Lumbar stenosis with neurogenic claudication 01/29/2025 Telephone [facility] Neurosurgery [address] [facility] 6th [place] [address] [place] [address] Ewa Nath NP 01/17/2025 2:30 PM CDT Office Visit [facility] Orthopaedic Surgery [address] [facility] 2nd Floor [address] [place] [address] Bell Smith PA Primary osteoarthritis of both knees (Primary Dx) 01/17/2025 Telephone [facility] Neuro Sleep [address] [facility] 6th [address] [place] [phone] Rin Knapp RN DME order 01/16/2025 Orders Only [facility] Stroke [address] [facility] 6th [address] [place] [phone] Mauro Zamora MD CORNEL (obstructive sleep apnea) (Primary Dx) 01/16/2025 Telephone [facility] Neuro Sleep [address] [facility] 6th [address] [place] [address] Rin Knapp RN from Last 3 Months Immunizations Immunization Administration [...] ANGIOGRAPHY AND WITH OR WITHOUT LEFT VENTRICULOGRAM 04005; Surgeon: Marty Torres MD; Location: [facility] 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[facility]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; Service: Cardiovascular; Laterality: N/A; Medical History Medical History Date Comments Cardiomyopathy Coronary artery disease Hypertension PVC's (premature ventricular contractions) Atrial fibrillation (HCC) s/p ab lation in 2006 BPPV (benign paroxysmal positional vertigo) PUD (peptic ulcer disease) GERD (gastroesophageal reflux disease) Spinal stenosis OA (osteoarthritis) Hyperlipidemia HFrEF (heart failure with reduced ejection fract ion) EF 42% Carotid artery disease CHF (congestive heart failure) (HCC) Sleep apnea Heart disease Heart failure Awareness under anesthesia telma diggs Family History [...] Date Smoking Tobacco: Former Cigarettes 1 13 1971 Passive Smoke Exposure: Past Smokeless Tobacco: Never Tobacco Cessation:Counseling Given: Not Answered Alcohol Use Standard Drinks/Week Comments Yes 7 (1 standard drink = 0.6 oz pur e alcohol) [facility] Utilities Answer Date Recorded In the past 12 months has [employer], gas, oil, or water [employer] threatened to shut off services in your [...] often do you attend chur ch or holiness services? 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 Sexual Orientation Not on file Obstetrics History Last Filed Vital Signs Vital Sign Reading Time Taken Comments Blood Pressure 125/83 04/02/2025 2:08 PM CDT Pulse 63 04/02/2025 2:08 PM CDT Temperature 36.4 C (97.6 F) 04/01/2025 10:01 AM CDT Respiratory Rate 16 04/02/2025 2:08 PM CDT Oxygen Saturation 98% 04/02/2025 2:08 PM CDT Inhaled Oxygen Concentration - - Weight 80.9 kg (178 lb 6.4 oz) 04/01/2025 10:01 AM CDT Height 172.7 cm (5' 7.99) 04/01/2025 10:01 AM C DT Body Mass Index 27.13 04/01/2025 10:01 AM CDT Plan of Treatment Health Maintenance Due Date Last Done Comments Hepatitis B Screening 1958 Well Visit 65+ 2007 DTaP/Tdap/Td Vaccine (3 - Tdap) 02/26/2019 02/26/2009, 02/26/2009, 05/05/1998 Pneumococcal vaccine 65+ (2 of 2 - PPSV23, PCV20, or PCV21) 06/25/2023 04/30/2023, 01/23/2015, 01/23/2015 Depression Screening 09/13/2023 09/13/2022, 09/13/19 23 Covid-19 Vaccine (4 - 2023-2 5 season) 2024 12/04/2021, 07/04/2021, 10/14/2020 Influenza Vaccine (#1) 2025 , 05/31/2021, 05/31/2021, Additional history exists Fall Risk Assessment 04/02/2026 04/02/2025 Abdominal Aortic Aneurysm (A AA) Screen Completed 05/18/2021, 02/18/2019 Zoster Vaccine Completed 01/15/2023, 09/11/2022 Medical Devices Implanted Type Area Junior Software Developer Device Identifier Shelf Expiration Date Model / Serial / Lot Medtronic Cardiac Rhythm Mgmt 5076-52 Capsurefix Novus 6.2fr 2mm 52cm Bipolar Screw In Implantable Latex Free - [id number] - [id number] Implanted:Qty: 1 on 04/24/2018 by Osmany Pina MD at [facility] Pacemaker Left: Heart Medtronic Cardiac Rhythm Mgmt [id number] 03/08/2020 5076-52 / [id number] 16 / Medtronic Cardiac Rhythm Mgmt 5076-45 Capsurefix Novus Od6.2 Fr; Odsec2 Mm L45 Cm Bipolar; Screw In; Im - [id number] - [id number] Implanted:Qty: 1 on 04/24/2018 by Osmany Pina MD at [facility] Pacemaker Left: Heart Medtronic Cardiac Rhythm Mgmt [id number] 02/13/2020 5076-45 / [id number] / Medtronic Inc [id number] Attain Performa Starfix 5.3fr 5.1fr 88cm Quadripolar Is4-Llll Latex Free - [id number] - [id number] Implanted:Qty: 1 on 04/24/2018 by Osmany Pina MD at [facility] Pacemaker Left: Heart Medtronic Inc 02/15/2020 [id number] / [id number] / Pacemaker Cardiac 11mm 19.9cu Cm 46.5x59mm Rain Surescan - [id number] - [id number] Implanted:Qty: 1 on 04/24/2018 by Osmany Pina MD at [facility] Pacemaker Left: Chest Medtronic Inc 06/17/2019 [id number] / [id number] / Moore Vascular Device Clsr Perclose Prostyle Sut-Mediatd Closure-Repair Sys 29758-56 - [id number] - [id number] Implanted:Qty: 1 on 09/20/2023 by Antoine Nelson MD at [facility] Vascular Closure Device N/A: Femoral Vein [employer] 05/04/2025 [id number] / [id number] / [id number] Procedures Procedure Name Priority Date/Time Associated Diagnosis Comments PULMONARY FUNCTION TEST (PFT) Routine 04/03/2025 2:20 PM CDT Dyspnea and respiratory abnormalities XR CHEST PA LATERAL 2 VIEWS Schedule Routine, Read Routine (OP Routine) 04/03/2025 2:09 PM CDT Atelectasis US CAROTIDS DUPLEX BILATERAL Schedule Routine, Read Routine (OP Routine) 04/02/2025 12:15 PM CDT Bilateral carotid bruits SCAN - LABS 04/01/2025 OR ARTHROCENTESIS ASPIR&/INJ MAJOR JT/BURSA W/O US Routine 03/04/2025 11:45 AM CDT Primary osteoarthritis of both knees LEFT HEART CATHETERIZATION WITH CORONARY ANGIOGRAPHY AND WITH AND WITHOUT LEFT VENTRICULOGRAM Routine 02/21/2025 12:06 PM CDT Chest pain, unspecified type Coronary artery disease of napaimute artery of napaimute heart with stable angina pectoris Dizziness XR LUMBAR SPINE AP LAT FLEX EX Schedule Routine, Read Routine (OP Routine) 02/20/2025 12:32 PM CDT Lumbar spondylosis Lumbar stenosis with neurogenic claudication XR TRANSFER OF OUTSIDE FILMS Routine 02/14/2025 4:35 PM CDT DEVICE CHECK - REMOTE Routine 02/14/2025 5:18 AM CDT BASIC METABOLIC PANEL Routine 02/13/2025 11:56 AM CDT Dizziness Chest pain, unspecified type Primary hypertension Coronary artery disease involving napaimute coronary artery of napaimute heart without angina pectoris CBC WITH AUTO DIFFERENTIAL Routine 02/13/2025 11:56 AM CDT Dizziness Chest pain, unspecified type Primary hypertension Coronary artery disease involving napaimute coronary artery of napaimute heart without angina pectoris OR ARTHROCENTESIS ASPIR&/INJ MAJOR JT/BURSA W/O US Routine 01/17/2025 2:30 PM CDT Primary osteoarthritis of both knees CTA ABDOMINAL AORTA AND BILATERAL ILIOFEMORAL RUNOFF Schedule Routine, Read Routine (OP Routine) 02/18/2019 3:29 PM CDT Abnormal ankle brachial index (ODALIS) Pain in both lower extremities from Last 3 Months or Most Recently Relevant to Health Maintenance Results * (ABNORMAL) Pulmonary Function Test - (04/03/2025 2:20 PM CDT) FVC PRE 3.20 2.72 - 4.89 L [facility] FEV1 PRE 2.51 1.91 - 3.60 L [facility] [id number] 78.35 59.14 - 88.12 % [facility] YKT37-18% PRE 2.08 0.70 - 3.76 L/s [facility] PEF PRE 10.43(A) 5.55 - 9.53 L/s [facility] DLCOc SB 19.42 17.89 - 31.75 ml/(min*mm Hg) [facility] DLCO/VA PRE 4.09 2.36 - 4.61 ml/(min*mm Hg*L) [facility] VA 4.74(A) 6.98 - 6.98 L [facility] TLC PRE 6.07 5.97 - 8.28 L [facility] VC PRE 3.27 2.98 - 4.82 L [facility] IC PRE 2.73(A) 2.99 - 2.99 L [facility] FRC PL PRE 3.34 2.82 - 4.80 L [facility] ERV PRE 0.54(A) 0.91 - 0.91 L [facility] RV PRE 2.80 2.23 - 3.58 L [facility] VTG 3.51 L [facility] RAW PRE 2.06(A) 3.06 - 3.06 cmH2O*s/L [facility] Anatomical Region Laterality Modality PFT 04/03/2025 1:39 PM CDT Narrative 2025 2:01 PM CDT PFT INTERPRETATION Please see technologist's comments mentioned in attached results report. Spirometry: Normal Flow volume loop: Normal/unrevealing Lung volumes: Normal DLCO: Normal diffusion 6 Minute Walk Test/Pulmonary Stress: The patient did not require any supplemental oxygen for hyopxia at the level of exertion achieved Electronically signed by Yasmeen Foley MD Yasmeen Foley MD PFT ORDERABLES Final Result * X-ray chest 2 views (04/03/2025 2:09 PM CDT) Anatomical Region Laterality Modality Body, Chest N/A Computed Radiogr aphy 04/11/2025 12:2 0 AM CDT Narrative 04/11/2025 12:21 AM CDT EXAM DESCRIPTION: XR CHEST PA LATERAL 2 VIEWS REASON FOR STUDY: outside hospital cxr showing right lower lobe atelectasis Hx right lower lobe atelectasis TECHNIQUE: 2 radiographic view(s) of the chest. COMPARISON: 09/21/2023 FINDINGS: LUNGS: Chronic lung changes are noted. The lungs are hyperexpanded. This is suggestive of COPD. No consolidation, effusion or other acute process is seen. HEART/MEDIASTINUM: Cardiac silhouette normal in size. Mediastinal and hilar contours appear normal. LINES/TUBES: Left-sided pacing device is again noted. BONES: No acute osseous abnormality. IMPRESSION: Chronic lung changes without acute process identified. THIS IS AN ELECTRONICALLY VERIFIED FINAL REPORT 04/11/2025 12:21 AM - Electronically signed by Alex Smart M.D. KH: NELSON Report ID: [id number] Reading Location: [place] [address] Procedure Note Alex Smart MD - 04/11/2025 EXAM DESCRIPTION: XR CHEST PA LATERAL 2 VIEWS REASON FOR STUDY: outside hospital cxr showing right lower lobeatelectasis Hx right lower lobe atelectasis TECHNIQUE: 2 radiographic view(s) of the chest. COMPARISON: 09/21/2023 FINDINGS: LUNGS: Chronic lung changes are noted. The lungs are hyperexpanded. This is suggestive of COPD. No consolidation, effusion orother acute process is seen. HEART/MEDIASTINUM: Cardiac silhouette normal in size. Mediastinal andhilar contours appear normal. LINES/TUBES: Left-sided pacing device is again noted. BONES: No acute osseous abnormality. IMPRESSION: Chronic lung changes without acute process identified. THIS IS AN ELECTRONICALLY VERIFIED FINAL REPORT 04/11/2025 12:21 AM - Electronically signed by Alex Smart M.D. KH: NELSON Report ID: [id number] Reading Location: [place] [address] us Yasmeen Foley MD IMG XR PROCEDURES Final Resul t * US Carotids Duplex Bilateral (04/02/2025 12:15 PM CDT) Anatomical Region Laterality Modality Vascular Bilateral Ultrasound 04/02/2025 11:5 6 AM CDT Narrative 04/02/2025 8:[address] [facility] Cardiac Diagnostic Lab [address] [place] [address] Carotid Duplex Report Patient Name: DONALD FATIMA M : 1940 (84y 11m) Gender: M Study Date: 04/02/2025 11:56:23 AM Service Attendant: Kayleen Post RVT Location: [facility] Order Provider: MARTY TORRES Quality: Adequate Ref Provider: MARTY TORRES PROCEDURES: Arterial Report: [id number]: Duplex scan of extracranial arteries; complete bilateral study. INDICATIONS: Screening encounter for carotid bruit and R09.89 Other specified symptoms and signs involving the circulatory and respiratory systems. VASCULAR HISTORY: No prior vascular history. Risk factors include: hypertension, hyperlipidemia and coronary artery disease. CONCLUSIONS: CCA: No stenosis of the right or left common carotid arteries. ICA: Mild stenosis of the right and left internal carotid arteries (<50% stenosis). ECA: No stenosis of the right or left external carotid arteries. Vertebrals: antegrade flow of the right and left vertebral arteries. [place] [facility] MEASUREMENTS: Right PSV (cm/s) Right EDV (cm/s) Left PSV (cm/s) Left EDV (cm/s) CCA Prx 79 14 83 11 CCA Dst 72 15 75 13 ICA Prx 55 9 28 ICA Mid 39 12 45 16 ICA Dst 49 16 56 17 ECA 88 77 ICA/CCA Ratio 0.8 0.7 Vertebral 38 26 FINDINGS: Blood Pressure: Right BP: 149/88 mmHg. Left BP: 151/83 mmHg. Right CCA: The right common carotid artery is normal. Right ICA: Internal Carotid Artery Plaque Characteristics: irregular and heterogenous. Mild atherosclerosis (<50% stenosis) of the proximal internal carotid artery. Right ECA: The right external carotid artery is normal. Right Vert: Normal antegrade flow of the vertebral artery. Left CCA: The left common carotid artery is normal. Left ICA: Internal Carotid Artery Plaque Characteristics: irregular and heterogenous. Mild atherosclerosis (<50% stenosis) of the proximal internal carotid artery. Left ECA: The left external carotid artery is normal. ATTESTATION: I have reviewed and interpreted the pertinent images and measurements of this study. I attest to the conclusions in the final report that is provided above. DISCLAIMER: The study images and the final report will be retained in the patient chart by the Vascular Laboratory for the legally required time period. This chart constitutes the legal record of any testing performed. ICA STENOSIS CRITERIA: Degree of Stenosis, % ICA PSV, cm/sec Plaque Estimate, % ICA/CCA Ratio ICA EDV, cm/sec Normal <180 None <2.0 <40 <50 <180 <50 <2.0 <40 50-69 180-230 >50 2.0-4.0 40-100 >70 but less than near occlusion >230 >50 >4.0 >100 Near Occlusion High, low, or undetectable Visible Variable Variable Total Occlusion Undetectable Visible, no detectable lumen Not applicable Not applicable Electronically Signed By: Marty Torres MD 04/02/2025 8:56:12 PM CDT Electronically Signed By: Marty Torres MD 04/02/2025 8:56:12 PM CDT Carotid Arteries Procedure Note Marty Torres MD - 04/02/2025 [facility] Cardiac Diagnostic Lab [address] [place] [address] Carotid Duplex Report Patient Name: DONALD FATIMA M : 1940 (84y 11m) Gender: M Study Date: 04/02/2025 11:56:23 AM Service Attendant: Kayleen Post RVT Location: [facility] Order Provider: MARTY TORRES Quality: Adequate Ref Provider: MARTY TORRES PROCEDURES: Arterial Report: [id number]: Duplex scan of extracranial arteries; completebilateral study. INDICATIONS: Screening encounter for carotid bruit and R09.89 Other specified symptomsand signs involving the circulatory and respiratory systems. VASCULAR HISTORY: No prior vascular history. Risk factors include: hypertension,hyperlipidemia and coronary artery disease. CONCLUSIONS: CCA: No stenosis of the right or left common carotid arteries. ICA: Mild stenosis of the right and left internal carotid arteries (<50%stenosis). ECA: No stenosis of the right or left external carotid arteries. Vertebrals: antegrade flow of the right and left vertebral arteries. [place] VESSEL VELOCITY MEASUREMENTS: Right PSV (cm/s) Right EDV (cm/s) Left PSV (cm/s) Left EDV (cm/s) CCA Prx 79 14 83 11 CCA Dst 72 15 75 13 ICA Prx 55 9 28 ICA Mid 39 12 45 16 ICA Dst 49 16 56 17 ECA 88 77 ICA/CCA Ratio 0.8 0.7 Vertebral 38 26 FINDINGS: Blood Pressure: Right BP: 149/88 mmHg. Left BP: 151/83 mmHg. Right CCA: The right common carotid artery is normal. Right ICA: Internal Carotid Artery Plaque Characteristics: irregular andheterogenous. Mild atherosclerosis (<50% stenosis) of the proximal internal carotidartery. Right ECA: The right external carotid artery is normal. Right Vert: Normal antegrade flow of the vertebral artery. Left CCA: The left common carotid artery is normal. Left ICA: Internal Carotid Artery Plaque Characteristics: irregular andheterogenous. Mild atherosclerosis (<50% stenosis) of the proximal internal carotidartery. Left ECA: The left external carotid artery is normal. ATTESTATION: I have reviewed and interpreted the pertinent images and measurements ofthis study. I attest to the conclusions in the final report that is provided above. DISCLAIMER: The study images and the final report will be retained in the patientchart by the [facility]ascular [facility] for the legally required time period. This chartconstitutes the legal record of any testing performed. ICA STENOSIS CRITERIA: Degree of Stenosis, % ICA PSV, cm/sec Plaque Estimate, % ICA/CCA Ratio ICAEDV, cm/sec Normal <180 None <2.0 <40 <50 <180 <50 <2.0 <40 50-69 180-230 >50 2.0-4.0 40-100 >70 but less than near occlusion >230 >50 >4.0 >100 Near Occlusion High, low, or undetectable Visible Variable Variable Total Occlusion Undetectable Visible, no detectable lumen Not applicableNot applicable Electronically Signed By: Marty Torres MD 04/02/2025 8:56:12 PM CDT Electronically Signed By: Marty Torres MD 04/02/2025 8:56:12 PM CDT Carotid Arteries Marty Torres MD IMG US PROCEDURES Final Result * SCAN - LABS (04/01/2025) us Berenice Olivares RN Final Result * OR ARTHROCENTESIS ASPIR&/INJ MAJOR JT/BURSA W/O US (03/04/2025 [...] appropriate. No short V-V intervals. Presenting Rhythm (OR) Atrial Pacing-BiVentricular Pacing (AP-BiVP) --- AP/BVP 60 bpm. Arrhythmic events (AE) No new arrhythmic events in monitoring period --- Since 04/24/24: No AHR or VHR episodes. Anticoagulation (AC) Patient on anticoagulant therapy Patient prescribed Apixaban (Eliquis) Transmission Information (TI) Device Summary Report Scheduled Carelink DONKEY ENGINE FIRER/FIREMAN-P transmission. Battery status ok (estimated 1.2 years remaining). AP 65.8%. MOLD TOOLING TECHNICIAN 99.6%. No AHR or VHR episodes. Stable device function; no changes recommended. Pt to keep scheduled follow up with Johnna Navarrete MEDICAL DOCTOR NUCLEAR MEDICINE on 10/30/24. Cardiac Cath 02/22/19 Selective Coronary [...] unsuccessful. Adjusted Risk of Stroke for 4 [id number] Scores in Non valvular Atrial Fib [id number] acronym[2] Score [id number] acronym Unadjusted ischemic stroke rate (% per year)* Congestive HF 1 0 0.2 Hypertension 1 1 0.6 Age >=75 years 2 2 2.2 Diabetes mellitus 1 3 3.2 Stroke/TIA/TE 2 4 4.8 Vascular disease (prior NE, PAD, or aortic plaque) 1 5 7.2 [...] used for local anesthesia. 5. A 5F [place] sheath was placed in the right radial [...] complications were Noted. Pt remained hemodynamically stable. [id number] I personally performed or supervised the procedure [...] about verbage above please contact me at [phone]. Narrative 02/21/2025 6:13 PM CDT Table formatting from the original result was not included. CARDIAC CATHETERIZATION Patient: Donald Fatima [id number] : 1940 Date of Service: 02/21/2025 FINAL PATIENT CLINICAL PROFILE: Donald Fatmia is a pleasant 84 y.o. male who [...] followed by Dr. Qi Norris MD at [facility] he stated he is off aspirin [...] per tablet 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 cholecalciferol 400 unit capsule Take 200 Units by mouth every other day coenzyme Q10 200 mg capsule Take 1 capsule (200 mg total) by mouth nightly dapagliflozin propanediol (FARXIGA) 10 mg tablet Take 1 tablet (10 mg total) by mouth daily 90 tablet 3 finasteride (PROSCAR) 5 mg tablet Take 1 tablet (5 mg total) 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 fluocinolone in oil (DermOtic) 0.01 [...] mg tablet,chewable Take 200 mg 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 multivitamin no.44-vit D3-K 1,000-800 unit-mcg capsule 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 mupirocin (BACTROBAN) 2 % ointment [...] Medical History: Diagnosis Date Atrial fibrillation (CMS/HCC) ([facility]) s/p ablation in 2006 Awareness under anesthesia during ablation BPPV (benign paroxysmal positional vertigo) Cardiomyopathy (HCC) Carotid artery disease (HCC) CHF (congestive heart failure) (CMS/HCC) ([facility]) Coronary artery disease GERD (gastroesophageal reflux disease) Heart disease Heart failure (HCC) HFrEF (heart failure with reduced ejection fraction) (CMS/HCC) ([facility]) EF 42% Hyperlipidemia Hypertension OA (osteoarthritis) PUD [...] acute osseous or soft tissue abnormality. us Marty Torres MD CV CARDIAC CATH PROCEDURES Fin al [...] NP IMG XR PROCEDURES Final Result * XR Outside Reference (02/14/2025 4:35 PM CDT) Narrative NEETA_PREETI_JUAN_MHE - 04/04/2025 10:51 AM CDT This order has been auto-finalized and does not contain a result. us Provider Transcribed Order IMG XR PROCEDURES Fin al Result RAD_PREETI_MHB_MHE * DEVICE CHECK - REMOTE (02/14/2025 5:18 AM CDT) Anatomical Region Laterality Modality Other 02/14/2025 5:18 AM CDT Narrative 04/01/2025 8:35 PM CDT Interpretation Summary: Battery and Leads (BL) Normal parameters noted on battery and lead(s) --- 3 months remaining (this is an estimate based on prior usage) Less than 6 months of battery longevity noted Presenting Rhythm (OR) Atrial Pacing-BiVentricular Pacing (AP-BiVP) --- rate 64 Arrhythmic events (AE) Nonsustained VT event(s) identified --- One NS-VT episode. Duration: 2 seconds. Rate: 200 Anticoagulation (AC) Patient prescribed Apixaban (Eliquis) Patient on anticoagulant therapy Transmission Information (TI) Device Summary Report Procedure Note Tree Ruiz MD PhD - 04/01/2025 Interpretation Summary: Battery and Leads (BL) Normal parameters noted on battery and lead(s) --- 3 months remaining(this is an estimate based on prior usage) Less than 6 months of battery longevity noted Presenting Rhythm (OR) Atrial Pacing-BiVentricular Pacing (AP-BiVP) --- rate 64 Arrhythmic events (AE) Nonsustained VT event(s) identified --- One NS-VT episode. Duration: 2seconds. Rate: 200 Anticoagulation (AC) Patient prescribed Apixaban (Eliquis) Patient on anticoagulant therapy Transmission Information (TI) Device Summary Report Tree Ruiz MD PhD CV CARDIAC SERVICES PROCEDURES Final Result * CBC with auto differential (02/13/2025 11:56 AM CDT) WBC 5.3 3.8 - 10.8 Thousand/u L [facility] RBC, POC 4.55 4.20 - 5.80 Million/uL [facility] Hgb 14.4 13.2 - 17.1 g/dL [facility] Hct 43.9 38.5 - 50.0 % [facility] MCV 96.5 80.0 - 100.0 fL [facility] MCH 31.6 27.0 - 33.0 pg [facility] MCHC 32.8 32.0 - 36.0 g/dL [facility] Comment: For adults, a slight decrease in the calculated MCHC value (in the range of 30 to 32 g/dL) is most likely not clinically significant; however, it should be interpreted with caution in correlation with other red cell parameters and the patient's clinical condition. Rdw 13.3 11.0 - 15.0 % [facility] Platelets 254 140 - 400 Thousand/u L [facility] MPV 9.1 7.5 - 12.5 fL [facility] Neutrophils, abs 2,544 1,500 - 7,800 cells/uL [facility] Lymphocytes, abs 2,104 850 - 3,900 cells/uL [facility] Monocyte abs 541 200 - 950 cells/uL [facility] Eosinophils, abs 69 15 - 500 cells/uL [facility] Basophils, abs 42 0 - 200 cells/uL [facility] Neutrophils 48 % [facility] Lymphocyte pct 39.7 % [facility] Monocytes 10.2 % [facility] Eosinophils 1.3 % [facility] Basophils 0.8 % [facility] Blood 02/13/2025 11:5 6 AM CDT 02/13/2025 11:57 AM CDT Narrative [facility] - 02/14/2025 3:06 AM CDT FASTING:NO FASTING: NO us Marty Torres MD LAB BLOOD ORDERABLES Final Res ult [facility] [address] [place] [address] * (ABNORMAL) Basic metabolic panel (02/13/2025 11:56 AM CDT) Pathologist [facility] Glucose 93 65 - 99 mg/dL [facility] Comment: Fasting reference interval BUN 13 7 - 25 mg/dL [facility] Creatinine 0.64(L) 0.70 - 1.22 mg/dL [facility] eGFR 95 > OR = 60 mL/min/1.7 3m2 [facility] BUN/creat ratio 20 6 - 22 (calc) [facility] Sodium 137 135 - 146 mmol/L [facility] Potassium, pl 4.1 3.5 - 5.3 mmol/L [facility] Chloride 100 98 - 110 mmol/L [facility] CO2 32 20 - 32 mmol/L [facility] Calcium 9.0 8.6 - 10.3 mg/dL [facility] Blood 02/13/2025 11:5 6 AM CDT 02/13/2025 11:57 AM CDT Narrative [facility] - 02/14/2025 3:06 AM CDT FASTING:NO FASTING: NO us Marty Torres MD LAB BLOOD ORDERABLES Final Res ult NAT [facility] [address] [place] [address] * OR ARTHROCENTESIS ASPIR&/INJ MAJOR JT/BURSA W/O US (01/17/2025 [...] MEDICARE BLUE CROSS MEDICARE SUPPLEMENT MEDICARE MEDICARE [facility] MEDICARE [facility] MEDICARE SUPPLEMENT MEDICARE [facility] MEDICARE SUPPLEMENT Advance Directives For more information, please contact: [phone] * Full Code (Latest Code Status on File) Date Activated Date Inactivated Comments 02/21/2025 9:02 AM 02/22/2025 4:33 AM * Full Code Date Activated Date Inactivated Comments 09/20/2023 6:27 PM 09/21/2023 7:45 PM * Full Code Date Activated Date Inactivated Comments 04/24/2018 5:50 PM 04/27/2018 2:46 PM * Full Code Date Activated Date Inactivated Comments 03/24/2018 11:24 PM 03/25/2018 4:51 PM Care Teams Optical Systems Engineer Relationship Specialty Start Date End Date Cheo Potts MD [address] [facility] [address] [place] [address] PCP - General 01/03/17 Marty Torres MD [address] [facility] [address] [place] [address] Consulting Physician Cardiology 11/15/18 Qi Norris MD [address] [address] Referring Physician Gastroenterology 05/10/23 Katharina Mac, DEBORA [address] [address] Nurse Practitioner Cardiology 11/21/23 Tree Ruiz MD PhD [address] [address] Consulting Physician Cardiology 11/21/23 [place] [address] [address] [facility] [address] [place] [address] Nurse Practitioner Wire Stockkeeper 09/18/24 [place] [address] [address] [facility] [address] [place] [address] Consulting Physician Pain Management 11/13/24
--- OUTSIDE RECORDS SUMMARY | 2025-04-16 16:05 | XMS_ITS | Clinical Summary ---
Author Organization [facility] [employer] Address [address] [place] [address] Care Team Providers Care Scallop Shucker Name Role Phone Cheo Potts MD Primary Care Provider [phone] Source Comments [facility],non-owned Affiliates and Associated Physician Practices is amultiple site organization consisting of ambulatory clinics and hospital sitesin [place], [place], [place] and [place]. This disclosure is being madepursuant to the Care Everywhere program and may not contain all information available regarding this patient. 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 Chronic idiopathic constipation 07/16/2021 Hepatomegaly 07/16/2021 History of alcohol abuse 07/16/2021 PAD (peripheral artery disease) 02/26/2019 Abnormal EKG 01/30/2019 Overview (12/17/2024): Added automatically from request for surgery [id number] Sick sinus syndrome 04/20/2018 Overview (12/17/2024): Added automatically from request for surgery [id number] Last Assessment & Plan: Cardiac resynchronization defibrillator [...] (12/17/2024): Added automatically from request for surgery [id number] Dizziness and giddiness 01/10/2017 High risk medication [...] on file Legal Sex Male 6:51 PM FASHION PATTERNMAKER Gender Identity Not on file Sexual Orientation Not on file Last Filed Vital Signs Vital Sign Reading Time Taken Comments Blood Pressure 120/75 12/17/2024 12:33 PM CDT Pulse 72 12/17/2024 12:33 PM CDT Temperature 36.9 C (98.4 F) 12/17/2024 12:33 PM CDT Respiratory Rate 11 09/27/2024 3:15 PM FASHION PATTERNMAKER Oxygen Saturation 98% 12/17/2024 12:33 PM CDT [...] Visit [facility] [address] [place] [address] Marlene Gay PA-C [address] [place] [address] Health Maintenance Due Date Last Done Comments [...] your last dose Insurance MEDICARE [facility] Care Teams Scallop Shucker Relationship Specialty Start Date End Date Cheo Potts MD [address] [place] [address] PCP - General 01/07/16
--- OUTSIDE RECORDS SUMMARY | 2025-04-16 16:05 | XMS_ITS | Encounter Summary ---
Author Organization [facility] Address [address] [place] [address] Phone Care Team Providers Care Tallow Refiner Name Role Phone Cheo Potts MD Primary Care Provider Neftaly Portillo MD Unavailable [phone] Qi Norris MD Unavailable [phone] Katharina Mac SCOOPING MACHINE TENDER Unavailable Tree Ruiz MD PhD Unavailable [phone] Oanh Trevizo SCOOPING MACHINE TENDER Unavailable Torin Almodovar MD Unavailable Encounter Details Date Type Department Care Team (Late st Contact Info) Description 04/04/2025 Results Follow-Up [facility] Cardiology [address] [facility] [address] [place] [address] Mae Villanueva RMA Carotids Duplex Bilateral Social History Tobacco Use Types Packs/Day Years Used Date Smoking Tobacco: Former Cigarettes 1 13 1 959 - 1971 Passive Smoke Exposure: Past Smokeless Tobacco: Never Alcohol Use Standard Drinks/Week Comments Yes 7 (1 standard drink = 0.6 oz pur e alcohol) [facility] Utilities Answer Date Recorded In the past 12 months has [employer] electric, gas, oil, or water company threatened [...] often do you attend chur ch or jain services? Never 09/22/2023 Do you belong to any clubs o r organizations such as quaker groups, unions, fraternal or athletic groups, or [...] on file Legal Sex Male 3:18 AM DISTRIBUTION CENTER ASSISTANT Gender Identity Male 11/05/2020 12:05 PM DISTRIBUTION CENTER ASSISTANT Sexual Orientation Not on file documented as of this encounter Plan of Treatment Not on file documented as of this encounter Visit Diagnoses Not on filedocumented in this encounter Care Teams Tallow Refiner Relationship Specialty Start Date End Date Cheo Potts MD [address] [facility] [address] [place] [address] PCP - General 01/03/17 Neftaly Portillo MD [address] [facility] [address] [place] [address] Consulting Physician Cardiology 11/15/18 Qi Norris MD [address] [address] Referring Physician Gastroenterology 05/10/23 Katharina Mac NP [address] [address] Nurse Practitioner Cardiology 11/21/23 Tree Ruiz MD PhD [address] [address] Consulting Physician Cardiology 11/21/23 [place] [address] [address] [place] [address] Nurse Practitioner Cfo 09/18/24 [place] [address] [address] [facility] [address] [place] [address] Consulting Physician Pain Management 11/13/24 documented as of this encounter
--- OUTSIDE RECORDS SUMMARY | 2025-04-16 16:05 | XMS_ITS | Encounter Summary ---
Author Organization [facility] Address [address] [place] [address] Phone Care Team Providers Care Tree Care Foreman Name Role Phone Cheo Potts MD Primary Care Provider Neftaly Portillo MD Unavailable [phone] Qi Norris MD Unavailable [phone] Katharina Mac LOCKET MAKER Unavailable Tree Ruiz MD PhD Unavailable [phone] Oanh Trevizo LOCKET MAKER Unavailable Torin Almodovar MD Unavailable Encounter Details Date Type Department Care Team (Late st Contact Info) Description 03/31/2025 Telephone [facility] Cardiology [address] [facility] Advanced Medicine 8th [place] [address] [place] [address] Neftaly Portillo MD [address] [facility] [address] [place], [place] [id number] Social History Tobacco Use Types Packs/Day Years Used Date Smoking Tobacco: Former Cigarettes 1 13 1 9 - 1971 Passive Smoke Exposure: Past Smokeless Tobacco: Never Alcohol Use Standard Drinks/Week Comments Yes 7 (1 standard drink = 0.6 oz pur e alcohol) [facility] Utilities Answer Date Recorded In the past 12 months has [employer] electric, gas, oil, or water company threatened [...] any clubs o r organizations such as hindu groups, unions, fraternal or athletic groups, or [...] on file Legal Sex Male 3:18 AM SWITCH TENDER Gender Identity Male 11/05/2020 12:05 PM SWITCH TENDER Sexual Orientation Not on file documented as of this encounter Miscellaneous Notes * Telephone Encounter - Prisca Stevens - 03/31/2025 4:09 PM CDT Bandar Patient returning missed call. He can be reached at [phone]. documented in this encounter Plan of Treatment Not on file documented as of this encounter Visit Diagnoses Not on filedocumented in this encounter Care Teams Tree Care Foreman Relationship Specialty Start Date End Date Cheo Potts MD [address] [facility] [address] [place] [address] PCP - General 01/03/17 Neftaly Portillo MD [address] [facility] [address] [place] [address] Consulting Physician Cardiology 11/15/18 Qi Norris MD 2 [facility] [address] [place] [address] Referring Physician Gastroenterology 05/10/23 Katharina Mac NP [address] [address] Nurse Practitioner Cardiology 11/21/23 Tree Ruiz MD PhD [address] [address] Consulting Physician Cardiology 11/21/23 [place] [address] [id number] Nurse Practitioner Willow Machine Tender 09/18/24 [place] [address] [address] [place] [address] [place] [address] Consulting Physician Pain Management 11/13/24 documented as of this encounter
--- OUTSIDE RECORDS SUMMARY | 2025-04-16 16:05 | XMS_ITS | Encounter Summary ---
Author Organization [facility] Address [address] [place] [address] Phone Care Team Providers Care Workers Compensation Claims Specialist Name Role Phone Cheo Potts MD Primary Care Provider Neftaly Portillo MD Unavailable [phone] Tree Ruiz MD PhD Unavailable [phone] Katharina Mac SEROLOGY TEACHER Unavailable Qi Norris MD Unavailable [phone] Yuly Nieves RN Unavailable Katharina Mac SEROLOGY TEACHER Unavailable Tree Ruiz MD PhD Unavailable [phone] Oanh Trevizo SEROLOGY TEACHER Unavailable [phone] Oanh Trevizo SEROLOGY TEACHER Unavailable Torin Almodovar MD Unavailable Encounter Details [...] on file Legal Sex Male 3:18 AM CAR MOVER Gender Identity Male 11/05/2020 12:05 PM CAR MOVER Sexual Orientation Not on file documented as [...] on filedocumented in this encounter Care Teams Workers Compensation Claims Specialist Relationship Specialty Start Date End Date Cheo Potts MD [address] [place] [address] PCP - General 01/03/17 Neftaly Portillo MD [address] [facility] [address] [place] [address] Consulting Physician Cardiology 11/15/18 Tree Ruiz MD PhD [address] [facility] [address] [place] [address] Referring Physician Cardiology 12/10/20 11/20/23 Katharina Mac NP [address] [facility] [address] [place] [address] Referring Physician Cardiology 12/10/20 11/20/23 Qi Norris MD 2 [facility] [address] [place] [address] Referring Physician Gastroenterology 05/10/23 Yuly Nieves RN [address] [facility] [address] [place] [address] SHOP Outpatient Wine Cellar Worker 09/22/23 10/18/23 Katharina Mac NP [address] [facility] [address] [place] [address] Nurse Practitioner Cardiology 11/21/23 Tree Ruiz MD PhD [address] [facility] [address] [place] [address] Consulting Physician Cardiology 11/21/23 Oanh Trevizo, [place] [address] [address] [facility] [address] [place] [address] Nurse Practitioner Manufacturing Planner 07/18/24 11/12/24 [place] [address] [address] Nurse Practitioner Manufacturing Planner 09/18/24 [place] [address] [address] [facility] [address] [place] [address] Consulting Physician Pain Management 11/13/24 documented as of this encounter
--- OUTSIDE RECORDS SUMMARY | 2025-04-16 16:05 | XMS_ITS | Encounter Summary ---
Author Organization [facility] Address [address] [place] [address] Phone Care Team Providers Care Heel Shaper Name Role Phone Cheo Potts MD Primary Care Provider Neftaly Portillo MD Unavailable [phone] Tree Ruiz MD PhD Unavailable [phone] Katharina Mac DIRECTOR CLINICAL INFORMATION SERVICES Unavailable Qi Norris MD Unavailable [phone] Yuly Nieves RN Unavailable [phone] Katharina Mac DIRECTOR CLINICAL INFORMATION SERVICES Unavailable Tree Ruiz MD PhD Unavailable [phone] Oanh Trevizo DIRECTOR CLINICAL INFORMATION SERVICES Unavailable Oanh Trevizo DIRECTOR CLINICAL INFORMATION SERVICES Unavailable [phone] Torin Almodovar MD Unavailable Reason for Visit * Reason Onset Date Comments CALL BACK 04/20/2018 Encounter Details Date Type Department Care Team (Late st Contact Info) Description 04/20/2018 Telephone [facility] Cardiology [address] [facility] 8th [place] [address] [place] [address] Tree Ruiz MD PhD [address] [facility] [address] [place] [address] CALL BACK Social History Tobacco Use Types Packs/Day Years Used Date Smoking Tobacco: Former Smokeless Tobacco: Never Alcohol Use Standard Drinks/Week Comments No 7 (1 standard drink = 0.6 oz pur e alcohol) Sex and Gender Information Value Date Recorded Sex Assigned at Not on file Legal Sex Male 3:18 AM DYE CAN OPERATOR Gender Identity Male 11/05/2020 12:05 PM DYE CAN OPERATOR Sexual Orientation Not on file documented as of this encounter Plan of Treatment Not on file documented as of this encounter Visit Diagnoses Not on filedocumented in this encounter Care Teams Heel Shaper Relationship Specialty Start Date End Date Cheo Potts MD [address] [place] [address] PCP - General 01/03/17 Neftaly Portillo MD [address] [facility] [address] [place] [address] Consulting Physician Cardiology 11/15/18 Tree Ruiz MD PhD [address] [facility] [address] [place] [address] Referring Physician Cardiology 12/10/20 11/20/23 Katharina Mac NP [address] [facility] [address] [place] [address] Referring Physician Cardiology 12/10/20 11/20/23 Qi Norris MD [address] [address] Referring Physician Gastroenterology 05/10/23 Yuly Nieevs, CLARISSA [address] [facility] [address] [place] [address] [facility]OP Outpatient Dairy Husbandry Teacher 09/22/23 10/18/23 Katharina Mac NP [address] [facility] [address] [place] [address] Nurse Practitioner Cardiology 11/21/23 Tree Ruiz MD PhD [address] [facility] [address] [place] [address] Consulting Physician Cardiology 11/21/23 [place] [address] [address] Nurse Practitioner Chuck Tender 07/18/24 11/12/24 [place] [address] [address] Nurse Practitioner Chuck Tender 09/18/24 [place] [address] [address] [facility] [address] [place] [address] Consulting Physician Pain Management 11/13/24 documented as of this encounter
--- OUTSIDE RECORDS SUMMARY | 2025-04-16 16:05 | XMS_ITS | Encounter Summary ---
Author Organization [facility] Address [address] [place] [address] Phone Care Team Providers Care Senior Mainframe Developer Name Role Phone Cheo Potts MD Primary Care Provider Neftaly Portillo MD Unavailable [phone] Tree Ruiz MD PhD Unavailable [phone] Katharina Mac LEAD MINER BLASTING Unavailable [phone] Qi Norris MD Unavailable [phone] Yuly Nieves RN Unavailable [phone] Katharina Mac LEAD MINER BLASTING Unavailable Tree Ruiz MD PhD Unavailable [phone] Oanh Trevizo LEAD MINER BLASTING Unavailable [phone] Oanh Trevizo LEAD MINER BLASTING Unavailable [phone] Torin Almodovar MD Unavailable Encounter Details Date Type Department Care Team (Latest Contact Info) Description 01/25/2023 Orders Only [facility] Berenice Olivares, RN [address] [facility] [address] [place] [address] Social History Tobacco Use Types [...] on file Legal Sex Male 3:18 AM PAYROLL ACCOUNTING MANAGER Gender Identity Male 11/05/2020 12:05 PM PAYROLL ACCOUNTING MANAGER Sexual Orientation Not on file documented as [...] filedocumented in this encounter Care Teams Senior Mainframe Developer Relationship Specialty Start Date End Date Cheo Potts MD [address] [place], [place] [id number] PCP - General 01/03/17 Neftaly Portillo MD [address] [facility] [address] [place] [address] Consulting Physician Cardiology 11/15/18 Tree Ruiz MD PhD [address] [facility] [address] [place] [address] Referring Physician Cardiology 12/10/20 11/20/23 Katharina Mac NP [address] [facility] [address] [facility] [address] [place] [address] Referring Physician Cardiology 12/10/20 11/20/23 Qi Norris MD [address] [address] Referring Physician Gastroenterology 05/10/23 Yuly Nieves, RN [address] [place] [address] SHOP Outpatient Store Product Demonstrator 09/22/23 10/18/23 Katharina Mac, DEBORA [address] [place] [address] Nurse Practitioner Cardiology 11/21/23 Tree Ruiz MD PhD [address] [place] [address] Consulting Physician Cardiology 11/21/23 [place] [address] [address] [facility] [address] [place] [address] Nurse Practitioner Asset Card Clerk 07/18/24 11/12/24 [place] [address] [address] [facility] [address] [place] [address] Nurse Practitioner Asset Card Clerk 09/18/24 [place] [address] [address] [facility] [address] [place] [address] Consulting Physician Pain Management 11/13/24 documented as of this encounter
--- OUTSIDE RECORDS SUMMARY | 2025-04-16 16:05 | XMS_ITS | Encounter Summary ---
Author Organization [facility] Address [address] [facility] [place] [address] Phone Care Team Providers Care Communication Arts Lecturer Name Role Phone Cheo Potts MD Primary Care Provider Marques Barksdale DO Unavailable [phone] Barbara Warner APRN, LIVING COACH Unavailable Qi Norris MD Unavailable [phone] Reason for Visit * Reason Comments Medication Refill Encounter Details Date Type Department Care Team (Late st Contact Info) Description 11/20/2022 Refill [facility] - Gastroenterology [facility] [address] [place] [id number] Renetta Jacob Duyen, PAC [address] [place] [address] Medication Refill Social History Tobacco Use Types [...] present documented in this encounter Care Teams Communication Arts Lecturer Relationship Specialty Start Date End Date Cheo Potts MD [address] [facility] [address] [place] [address] PCP - General Family Medicine 11/09/15 Marques Barksdale DO [address] [place] [address] [address] [place] [address] Gastroenterology 11/12/15 Barbara Warner APRN, LIVING COACH [address] [place] [address] Nurse Practitioner Advanced Practice Nurse 10/24/22 Qi Norris MD [address] [place] [address] Consulting Physician Gastroenterology 05/12/22 documented as of this encounter
--- OUTSIDE RECORDS SUMMARY | 2025-04-16 16:05 | XMS_ITS | Continuity of Care Document ---
Author Name [facility] Organization [facility] Care Team Providers Care Metal Mine Inspector Name Role Phone [facility] Unavailable Unavailable Problems Combined list of problems from Department of [facility] and [facility] facilities. It does not include entries that were removed or entered in error. Problem Status Onset Date Problem Type Date of Resolution Comments Source Allergic Rhinitis ([facility] [id number]) Active Condition [facility] Benign paroxysmal positional vertigo Active Condition [facility] Benign Prostatic Hypertrophy without Outflow Obstruction ([facility] [id number]) Active Condition [facility] CAD - Coronary Artery Disease ([facility] 53500403) Active Condition [facility] Chronic congestive heart failure Active Condition [facility] Generalized anxiety disorder Active Condition [facility] GERD - Gastro-Esophageal Reflux Disease ([facility] [id number]) Active Condition [facility] H/O: aortic aneurysm Active Condition [facility] HTN - Hypertension ([facility] 33497996) Active Condition [facility] Hyperlipidemia ([facility] 32579497) Active Condition [facility] Lumbar spinal stenosis Active Condition [facility] Obstructive Sleep Apnea of Adult ([facility] [id number]) Active Condition [facility] Peripheral arterial occlusive disease Active Condition [facility] Vitamin D Deficiency ([facility] [id number]) Active Condition [facility] Diagnosis: ICD-10-CM Z00.00 Encntr for general adult medical exam w/o abnormal findings Active Diagnosis [facility] Diagnosis: ICD-10-CM Z79.899 Other ocean transportation intermediary (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 Medication Details Route Status Patient Instructions Prescription Expires Prescription Number Last Dispense Date Ordering Provider Order Date Order Qty Source ATORVASTATI N CA 40MG TAB TAKE ONE-HALF TABLET BY MOUTH EVERY EVENING ORAL ACTIVE 04/01/2026 [id number] MARGIEEJ Guillermo 2024 45 [facility] AZELASTINE HCL 137MCG/SPRA Y INHL,NASAL, 30ML SPRAY 1 SPRAY IN NOSTRIL( S) TWICE A DAY *PRIME BEFORE USE* NASAL ACTIVE 04/01/2026 [id number] MARGIEEJ Guillermo 2024 2 [facility] BUSPIRONE HCL 10MG TAB TAKE ONE-HALF TABLET BY MOUTH TWICE A DAY DO NOT TAKE WITH GRAPEFRU IT JUICE. ORAL ACTIVE 04/01/2026 [id number] EJ HANSON 2024 90 [facility] CHOLECALCIF RAMIRO 25MCG (1,000UNIT) TAB TAKE ONE TABLET BY MOUTH ONCE A DAY ORAL ACTIVE EJ HANSON 2024 [facility] CODEINE 12MG/ACETAM INOPHEN 120MG/5ML SOLN,ORAL TAKE 30 ML BY MOUTH THREE TIMES A DAY NEEDED ORAL ACTIVE TITUS WEINER 2024 [facility] COENZYME Q10 CAP/TAB TAKE 1 CAP/TAB BY MOUTH ONCE A DAY ORAL ACTIVE MARGIE EJ Guillermo 2024 [facility] EMPAGLIFLOZ IN 25MG TAB TAKE ONE TABLET BY MOUTH ONCE A DAY ORAL ACTIVE 04/01/2026 [id number] MARGIE EJ Guillermo 2024 90 [facility] FINASTERIDE 5MG TAB TAKE ONE TABLET BY MOUTH ONCE A DAY SWALLOW WHOLE, DO NOT CRUSH, SPLIT, OR CHEW. ORAL ACTIVE 04/01/2026 [id number] EJ HANSON 2024 90 [facility] GABAPENTIN 100MG CAP TAKE ONE CAPSULE BY MOUTH THREE TIMES A DAY ORAL ACTIVE 04/01/2026 [id number] EJ HANSON 2024 270 [facility] LUTEIN CAP/TAB TAKE 1 CAP/TAB BY MOUTH ONCE A DAY ORAL ACTIVE EJ HANSON 2024 [facility] MAGNESIUM GLYCINATE CAP/TAB TAKE 1 CAP/TAB BY MOUTH ORAL ACTIVE EJ HANSON 2024 [facility] MULTIVITAMI NS CAP/TAB TAKE ONE TABLET BY MOUTH ONCE A DAY ORAL ACTIVE EJ HANSON 2024 [facility] OMEPRAZOLE 40MG CAP,EC TAKE ONE CAPSULE BY MOUTH EVERY MORNING BEFORE A MEAL TAKE 30 MINUTES PRIOR TO FOOD. ORAL ACTIVE 04/01/2026 [id number] EJ HANSON 2024 90 [facility] SACUBITRIL 24MG/VALSAR YANES 26MG TAB TAKE 1 TABLET BY MOUTH TWICE A DAY ORAL ACTIVE 04/01/2026 [id number] EJ HANSON 2024 180 [facility] SOTALOL HCL 120MG TAB TAKE ONE TABLET BY MOUTH TWICE A DAY ORAL ACTIVE 04/01/2026 [id number] EJ HANSON 2024 180 [facility] Allergies, Adverse Reactions, Alerts Combined list of allergies from Department of Defense and Veterans Affairs facilities. It does not include entries that were removed or entered in error. Substance Category Reaction Severity Reaction type Status Date Reported Comments Source CELECOXIB Propensity to adverse reactions to drug (finding) Eruption MODERATE active 5 [facility] CIPROFLOXACIN Propensity to adverse reactions to drug (finding) Muscle pain MODERATE active 5 [facility] LATEX GLOVE Propensity to adverse reactions to drug (finding) Eruption MODERATE active [address] [place] [address] Immunizations Combined list of available immunizations from the Department of [facility] and [facility] facilities. Immunization Series Date Given Administered By Site Reaction Lot Number CVX Code Drug Enterprise Software Engineer Status Comments Source COVID-19 (MODERNA), MRNA, LNP-S, PF, 50 MCG/0.5 ML (AGES 12+ YEARS) 2022 312 complet ed HISTORICA L INFORMATI ON - FROM PATIENT'S WRITTEN RECORD, [facility] PNEUMOCOCCAL CONJUGATE PCV 13 2022 133 complet ed HISTORICA L INFORMATI ON - FROM PATIENT'S WRITTEN RECORD, [facility] ZOSTER RECOMBINANT 2 2022 187 complet ed HISTORICA L INFORMATI ON - FROM PATIENT'S WRITTEN RECORD, [facility] ZOSTER RECOMBINANT 1 2022 187 complet ed HISTORICA L INFORMATI ON - FROM PATIENT'S WRITTEN RECORD, [facility] COVID-19 (MODERNA), MRNA, LNP-S, BIVALENT, PF, 50 MCG/0.5 ML OR 25MCG/0.25 ML DOSE 1 2021 229 complet ed HISTORICA L INFORMATI ON - FROM PATIENT'S WRITTEN RECORD, [facility] COVID-19 (MODERNA), MRNA, LNP-S, PF, 100 MCG/0.5ML DOSE OR 50 MCG/0.25ML DOSE 2021 207 complet ed HISTORICA L INFORMATI ON - FROM PATIENT'S WRITTEN RECORD, [facility] COVID-19 (MODERNA), MRNA, LNP-S, PF, 100 MCG/0.5ML DOSE OR 50 MCG/0.25ML DOSE 2 2020 207 complet ed HISTORICA L INFORMATI ON - FROM PATIENT'S WRITTEN RECORD, [facility] COVID-19 (MODERNA), MRNA, LNP-S, PF, 100 MCG/0.5ML DOSE OR 50 MCG/0.25ML DOSE 1 2020 207 complet ed HISTORICA L INFORMATI ON - FROM PATIENT'S WRITTEN RECORD, [facility] TDAP 2008 115 complet ed HISTORICA L INFORMATI ON - FROM PATIENT'S WRITTEN RECORD, [facility] Vital Signs Combined list of inpatient and outpatient Vital Signs from Department of Defense and Veterans Affairs, ranging from 12 months to all on record, depending upon the facility. Vital Sign Value Date Comments Source SYSTOLIC BLOOD PRESSURE 142 03/31/2025 12:39:58 [facility] DIASTOLIC BLOOD PRESSURE 90 03/31/2025 12:39:58 [facility] PULSE OXIMETRY 97 % 03/31/2025 12:39:58 [facility] WEIGHT 176 03/31/2025 12:39:58 [facility] BMI 173 kg/m2 03/31/2025 12:39:58 [facility] HEIGHT 26.772 03/31/2025 12:39:58 [facility] TEMPERATURE 97.9 03/31/2025 12:39:58 [facility] PULSE 68 03/31/2025 12:39:58 [facility] RESPIRATION 18 03/31/2025 12:39:58 [facility] Encounters Combined list of: 1) Encounters from Department of Veterans Affairs facilities going backup to the last 18 months, not all VA inpatient encounters are included; 2) Encounters from the Department of [facility] facilities going backup to 280 months. Location Location Details Encounter Type Encounter Number Reason For Visit Attending Provider ADM Date DC Date Status Disposition Source [facility] MTMS BY PHARM ADDL 15 MIN [id number] Diagnos is: ICD-10- CM Z79.899 Other residential (curren t) drug therapy Samia WEINER 03/27 [facility] Outpatient Encounter [id number] GER YIP 03/28 [facility] Outpatient Encounter [id number] 03/28 [facility] Outpatient Encounter [id number] 03/28 [facility] Outpatient Encounter [id number] 03/28 [facility] O/P EST HI 40 MIN [id number] Diagnos is: ICD-10- CM Z00.00 Encntr for general adult medical exam w/o abnorma l finding s Corby HANSON 03/31 [facility] Social History Combined list of available smoking, tobacco, and other social history from Department of Defense and Veterans Affairs facilities. Social History Type Response Date Comment Sourc e Tobacco smoking status WVIS VA-TOBACCO USE FORMER CIGARETTES 03/31/2025 [facility] History of tobacco use VA-TOBACCO NEVER USED OTHER TYPE 03/31/2025 [facility] Plan of Care List of future care activities from Department of [facility] Affairs facilities. Additional future care activities may be listed in the Assessment and Plan section. Date/Time Care Activity Care Activity Detail Facili ty 09/23/2025 AMBULATORY - MEDICINE AMBULATORY - MEDICI NE [facility]
--- OUTSIDE RECORDS SUMMARY | 2025-04-16 16:05 | XMS_ITS | Encounter Summary ---
Author Organization [facility] Address [address] [place] [address] Phone Care Team Providers Care Pre K Lead Teacher Name Role Phone Cheo Potts MD Primary Care Provider Neftaly Portillo MD Unavailable [phone] Qi Norris MD Unavailable [phone] Katharina Mac DELIVERY DRIVER/CUSTOMER SERVICE Unavailable Tree Ruiz MD PhD Unavailable [phone] Oanh Trevizo DELIVERY DRIVER/CUSTOMER SERVICE Unavailable Torin Almodovar MD Unavailable Encounter Details Date Type Department Care Team (Late st Contact Info) Description 04/04/2025 Results Follow-Up [facility] Cardiology [address] [facility] [address] [place] [address] Mae Villanueva RMA SCAN - LABS Social History Tobacco Use Types Packs/Day Years Used Date Smoking Tobacco: Former Cigarettes 1 13 1 959 - 1971 Passive Smoke Exposure: Past Smokeless Tobacco: Never Alcohol Use Standard Drinks/Week Comments Yes 7 (1 standard drink = 0.6 oz pur e alcohol) [facility] Utilities Answer Date Recorded In the [...] often do you attend chur ch or yazdanism services? Never 09/22/2023 Do you belong to [...] place to sleep or slept in a halfway (including now)? No 09/22/2023 Personal Safety Answer Date Recorded Have you ever been in or are you currently in a harmful physical or emotional relationship or is someone making you feel afraid or unsafe? Denies 02/21/2025 Sex and Gender Information Value Date Recorded Sex Assigned at Not on file Legal Sex Male 3:18 AM VIDEO SOFTWARE ENGINEER Gender Identity Male 11/05/2020 12:05 PM VIDEO SOFTWARE ENGINEER Sexual Orientation Not on file documented as of this encounter Plan of Treatment Not on file documented as of this encounter Visit Diagnoses Not on filedocumented in this encounter Care Teams Pre K Lead Teacher Relationship Specialty Start Date End Date Cheo Potts MD [address] [facility] [address] [facility] [address] [place] [address] PCP - General 01/03/17 Neftaly Portillo MD [address] [facility] [address] [place] [address] Consulting Physician Cardiology 11/15/18 Qi Norris MD [address] [address] Referring Physician Gastroenterology 05/10/23 Katharina Mac NP [address] [address] Nurse Practitioner Cardiology 11/21/23 Tree Ruiz MD PhD [address] [address] Consulting Physician Cardiology 11/21/23 [place] [address] [address] [facility] [address] [place] [address] Nurse Practitioner Blending Supervisor 09/18/24 [place] [address] [address] [facility] [address] [place] [address] Consulting Physician Pain Management 11/13/24 documented as of this encounter
[2025-04-16 16:12] VITALS: BP 141/93; PULSE 86; RESP 20; TEMP 36.7; O2SAT 97
--- NOTE | 2025-04-16 16:29 | ED.NEUROSD ---
HPI - Neuro Symptoms/Deficit General Chief Complaint: Neuro Symptoms/Deficit <Eufemia Finley APRN - Last Filed: 04/16/25 16:36> Stated Complaint: confusion <Eufemia Finley APRN - Last Filed: 04/16/25 16:36> Time Seen by Provider: 04/16/25 16:15 <Eufemia Finley APRN - Last Filed: 04/16/25 16:36> Focused HPI: Patient is an 85-year-old male who presents to the ER with changes to his neuro status. He reports approximately 8:00 a.m. this morning he started feeling befuddled. Patient reports he has had increased lethargy since this morning. He reports he had a doctor's appointment earlier today but he got lost on the way, which is abnormal for him. Patient denies any visual changes, headache, or neck stiffness. He endorses a history of hypertension, hyperlipidemia, and vertigo. GENERAL: Well-appearing, well-nourished, and in no acute distress. HEAD: Normocephalic, atraumatic. CHEST: Clear to auscultation. ?No respiratory distress. HEART: Regular rate and rhythm.? NEURO: ?Alert and oriented x3. Patient screened in triage and initial orders placed.? ?Additional care and disposition to be based upon?diagnostic testing and treatment. <Eufemia Finley APRN - Last Filed: 04/16/25 16:36> History of Present Illness HPI Narrative: Agree with HPI <Kevin Joseph MD - Last Filed: 04/16/25 22:06> Related Data Home Medications: Home Medications ?Medication ?Instructions ?Recorded ?Confirmed ?Last Taken ?Type coenzyme Q10 200 mg capsule (Co 200 mg PO DAILY 07/09/19 04/14/25 11/11/20 History Q-10) magnesium 200 mg tablet 200 mg PO DAILY 07/09/19 04/14/25 11/11/20 History sotalol 120 mg tablet 120 mg PO Q12H 03/03/20 04/14/25 11/12/20 08:30 History calcium carbonate (Calcium 600) 600 mg PO DAILY 07/29/20 04/14/25 11/11/20 History polyethylene glycol 3350 17 17 g PO DAILY 10/12/22 04/14/25 Unknown History gram/dose oral powder finasteride 5 mg tablet 5 mg PO DAILY 01/11/23 04/14/25 Unknown History prochlorperazine maleate 10 mg 10 mg PO DAILY 01/11/23 04/14/25 Unknown History tablet dapagliflozin propanediol 5 mg 5 mg PO DAILY 01/03/24 04/14/25 Unknown History tablet (Farxiga) atorvastatin 40 mg tablet 20 mg PO DAILY 09/12/24 04/14/25 Unknown History gabapentin 100 mg capsule 100 mg PO TID 12/31/24 04/14/25 Unknown History spironolactone 25 mg tablet 12.5 mg PO DAILY 12/31/24 04/14/25 Unknown History acetaminophen 325 mg capsule 325 mg PO Q6H PRN 03/13/25 04/14/25 Unknown History sacubitril 24 mg-valsartan 26 mg 1 tablet PO BID 03/13/25 04/14/25 Unknown History tablet (Entresto) <Eufemia Finley, DIRECTOR OF PHYSICAL EDUCATION - Last Filed: 04/16/25 16:36> Allergies/Adverse Reactions: Allergies Allergy/AdvReac Type Severity Reaction Status Date / Time celecoxib Allergy Intermediate Gastrointestinal Verified 04/14/25 14:15 Upset ciprofloxacin Allergy Intermediate Muscle pain Verified 04/14/25 14:15 latex Allergy Intermediate Rash Verified 04/14/25 14:15 NSAIDS (Non-Steroidal Allergy Intermediate Gastrointestinal Verified 04/14/25 14:15 Anti-Inflamma Upset <Eufemia Finley, DIRECTOR OF PHYSICAL EDUCATION - Last Filed: 04/16/25 16:36> Review of Systems Review of Systems: Gen.: Denies fevers or chills Eyes: Denies eye pain or visual change ENT: Denies congestion Respiratory: Denies shortness of breath or cough CV: Denies chest pain or palpitations GI: Denies abdominal pain nausea, emesis or diarrhea denies burning, urgency, frequency or hematuria Musculoskeletal: Denies back pain or muscle pain Neuro: Denies numbness, tingling, weakness or focal weakness Skin: Denies rash Except as documented, all other systems reviewed and negative <Kevin Joseph MD - Last Filed: 04/16/25 22:06> [facility] Past Medical History Medical History: Medical History Paroxysmal A-fib Hypertensive heart disease with heart failure CORNEL (obstructive sleep apnea) GERD (gastroesophageal reflux disease) Epigastric pain History of gastroesophageal reflux (GERD) History of stomach ulcers Depression Degenerative arthritis of knee, bilateral Vascular disease Hypertension Heart disease Coronary artery disease Arrhythmia Anemia Cholecystostomy care Hernia Chronic insomnia <Eufemia Finley, DIRECTOR OF PHYSICAL EDUCATION - Last Filed: 04/16/25 16:36> Surgical History Surgical History: Surgical History History of permanent cardiac pacemaker placement History of cholecystectomy History of hernia repair <Eufemia Finley, DIRECTOR OF PHYSICAL EDUCATION - Last Filed: 04/16/25 16:36> Family History Family History: Family History Mother Hypertension Patient's mother is in good health Sibling Hypertension Father Family history of heart disease in male family member before age 55 Other Cerebrovascular accident Diabetes mellitus Family history of arthritis Family history of cardiovascular disease Family history of kidney disease <Eufemia Finley, DIRECTOR OF PHYSICAL EDUCATION - Last Filed: 04/16/25 16:36> Social History Social History: Social History Social History: Smoking packs per day: 0 Smoking cigarettes per day: 0.0 Years smoked: 11 Smoking pack-years: 0.00 Smoking status: Former smoker Tobacco type: cigarettes Second hand tobacco smoke exposure: No Smoking end date: 09/04/71 Alcohol intake: former Drinks per week: 7 Alcohol use details: WINE Substance use: former Substance use type: marijuana Other substance usage details: GUMMIES OCC. FOR KNEE PAIN CBD. Pt stopped using them 2 months ago. Lack of Transportation: No Lack of Food: Never True Current Housing: I Have Housing Concerned About Future Housing: No Difficulty Paying Gas/Electric Bills: No Difficulty Paying for Meds: No Currently Unemployed: No Education: Master's Degree or Higher Difficulty w/ Childcare or Family Care: No Living arrangements: alone Occupation/Education: retired Gender identity (if verbalized by the patient): Male Sexual Orientation (if Verbalized by the Patient): Straight or Heterosexual Spiritual care concerns: No <Eufemia Finley, DIRECTOR OF PHYSICAL EDUCATION - Last Filed: 04/16/25 16:36> Exam Narrative: APPEARANCE: No acute distress, nontoxic, resting in bed EYES: EOMI HEENT: Normocephalic, atraumatic, OMM RESPIRATORY: No respiratory distress Clear to auscultation bilaterally with no rhonchi wheezing or rales. CARDIOVASCULAR: Regular rate and rhythm without murmurs rubs or gallops. ABDOMINAL: Soft, nontender, nondistended, no rebound or guarding MUSCULOSKELETAl: Moves all extremities. No clubbing, cyanosis or edema. NEURO: Awake and alert. Following commands, speech normal, no focal deficits. CN II-XII intact. NIH0 SKIN:: Warm, dry. No rashes lesions or abrasions PSYCHIATRIC: Normal affect/mood, <Kevin Joseph MD - Last Filed: 04/16/25 22:06> Course Vital Signs Vital signs: Vital Signs Temperature 98.0 F 04/16/25 16:12 Pulse Rate 86 04/16/25 16:12 Respiratory Rate 20 04/16/25 16:12 Blood Pressure 141/93 H 04/16/25 16:12 Pulse Oximetry 97 04/16/25 16:12 Oxygen Delivery Room Air 04/16/25 16:12 Temperature 98.0 F 04/16/25 16:12 Pulse Rate 61 04/16/25 20:18 Respiratory Rate 16 04/16/25 20:18 Blood Pressure 172/84 H 04/16/25 20:18 Pulse Oximetry 100 04/16/25 20:18 Oxygen Delivery Room Air 04/16/25 16:12 <Eufemia Finley APRN - Last Filed: 04/16/25 16:36> Vital Signs Temperature 98.0 F 04/16/25 16:12 Pulse Rate 86 04/16/25 16:12 Respiratory Rate 20 04/16/25 16:12 Blood Pressure 141/93 H 04/16/25 16:12 Pulse Oximetry 97 04/16/25 16:12 Oxygen Delivery Room Air 04/16/25 16:12 Temperature 98.0 F 04/16/25 16:12 Pulse Rate 61 04/16/25 20:18 Respiratory Rate 16 04/16/25 20:18 Blood Pressure 172/84 H 04/16/25 20:18 Pulse Oximetry 100 04/16/25 20:18 Oxygen Delivery Room Air 04/16/25 16:12 <Kevin Joseph MD - Last Filed: 04/16/25 22:06> MDM - Neuro Symptoms/Deficit MDM Narrative Medical decision making narrative: 85-year-old male presenting to the ED for memory loss. Her initial evaluation, patient was in no acute distress, afebrile, hemodynamically stable. He had a nonfocal neuro exam. He had a mild hyponatremia which was actually better than previous. CT head showed no acute process. I had a long discussion with the patient, he has been having some memory loss issues but this is worse today apparently. I do not think that the patient has any emergent needs at this time. I suspect he has acute on chronic dementia causing his issues. He does have friends that check on him. He will be given a referral to Neurology for further evaluation. He may benefit from home health. He is not interested in a long term at this point. He will be discharged at this time with strict return precautions. <Kevin Joseph MD - Last Filed: 04/16/25 22:06> Medical Records Attestation: I reviewed the patient's medical records. <Kevin Joseph MD - Last Filed: 04/16/25 22:06> Lab Data Attestation: I reviewed the patient's lab results. <Kevin Joseph MD - Last Filed: 04/16/25 22:06> Result diagrams: 04/16/25 17:04 04/16/25 17:04 <Eufemia Finley APRN - Last Filed: 04/16/25 16:36> Labs: Lab Results 04/16/25 04/16/25 Range/Units 17:04 17:15 WBC 5.1 (4.5-10.0) K/mm3 RBC 4.32 L (4.6-6.20) M/mm3 Hgb 13.4 L (14.0-18.0) g/dL Hct 40.3 L (42.0-52.0) % MCV 93.3 (80-100) fl MCH 31.0 (26-34) pg MCHC 33.3 (32-36) g/dl RDW 13.3 (11.5-14.5) % Plt Count 220 (150-375) k/mm3 MPV 8.3 (7.4-10.4) fl Immature Gran % (Auto) 0.4 (0-0.5) % Neut % (Auto) 54.6 (45.5-73.1) % Lymph % (Auto) 31.4 (18.3-44.2) % [place] % (Auto) 11.6 H (2.6-8.5) % Eos % (Auto) 1.2 (0-4.4) % Baso % (Auto) 0.8 (0.2-1.2) % Lymph # (Auto) 1.60 (0.9-3.2) K/mm3 [place] # (Auto) 0.6 (0.1-0.6) K/mm3 Eos # (Auto) 0.1 (0-0.3) K/mm3 Baso # (Auto) 0.0 (0.0-0.1) K/mm3 Abs Immat Gran (auto) 0.02 (0.00-0.031) K/mm3 Absolute Neuts (auto) 2.8 (1.3-6.7) K/mm3 Absolute Nucleated RBC 0.000 (0.0-0.012) K/mm3 Nucleated RBC % 0.0 (0.0-0.2) % PT 12.5 (11.1-14.7) Seconds INR 0.9 APTT 25.6 (22.3-36.8) Seconds Sodium 130 L (137-145) mmol/L Potassium 4.4 (3.4-5.0) mmol/L Chloride 99 (98-107) mmol/L Carbon Dioxide 28 (22-30) mmol/L Anion Gap 3 L (4-12) mmol/L BUN 9 D (9-20) mg/dL Creatinine 0.61 L (0.7-1.3) mg/dL Estim Creat Clear Calc Not Reportable Estimated GFR > 60 (59 - ) Glucose 115 H (65-110) mg/dL Calcium 8.8 (8.4-10.2) mg/dL Total Bilirubin 0.8 (0.2-1.3) mg/dL AST 30 (17-59) U/L ALT 26 (6-50) U/L Alkaline Phosphatase 45 (38-126) U/L Total Protein 5.9 L (6.3-8.2) g/dL Albumin 3.6 (3.5-5.1) g/dL Urine Color Dark yellow (Yellow) Urine Appearance Clear (Clear) Urine pH 7.0 (5.0-9.0) Ur Specific [place] 1.024 (1.001-1.035) Urine Protein Negative (Negative) mg/dL Urine Glucose (UA) 3+ H (Negative) mg/dL Urine Ketones Trace H (Negative) mg/dL Ur Blood (Man) Negative (Negative) Urine Nitrate Negative (Negative) Urine Bilirubin Negative (Negative) Urine Urobilinogen 1.0 (<2.0) mg/dL Leukocyte Esterase Rfl Negative (Negative) LAM/UL <Eufemia Finley, DIRECTOR OF PHYSICAL EDUCATION - Last Filed: 04/16/25 16:36> Lab Results 04/16/25 04/16/25 Range/Units 17:04 17:15 WBC 5.1 (4.5-10.0) K/mm3 RBC 4.32 L (4.6-6.20) M/mm3 Hgb 13.4 L (14.0-18.0) g/dL Hct 40.3 L (42.0-52.0) % MCV 93.3 (80-100) fl MCH 31.0 (26-34) pg MCHC 33.3 (32-36) g/dl RDW 13.3 (11.5-14.5) % Plt Count 220 (150-375) k/mm3 MPV 8.3 (7.4-10.4) fl Immature Gran % (Auto) 0.4 (0-0.5) % Neut % (Auto) 54.6 (45.5-73.1) % Lymph % (Auto) 31.4 (18.3-44.2) % [place] % (Auto) 11.6 H (2.6-8.5) % Eos % (Auto) 1.2 (0-4.4) % Baso % (Auto) 0.8 (0.2-1.2) % Lymph # (Auto) 1.60 (0.9-3.2) K/mm3 [place] # (Auto) 0.6 (0.1-0.6) K/mm3 Eos # (Auto) 0.1 (0-0.3) K/mm3 Baso # (Auto) 0.0 (0.0-0.1) K/mm3 Abs Immat Gran (auto) 0.02 (0.00-0.031) K/mm3 Absolute Neuts (auto) 2.8 (1.3-6.7) K/mm3 Absolute Nucleated RBC 0.000 (0.0-0.012) K/mm3 Nucleated RBC % 0.0 (0.0-0.2) % PT 12.5 (11.1-14.7) Seconds INR 0.9 APTT 25.6 (22.3-36.8) Seconds Sodium 130 L (137-145) mmol/L Potassium 4.4 (3.4-5.0) mmol/L Chloride 99 (98-107) mmol/L Carbon Dioxide 28 (22-30) mmol/L Anion Gap 3 L (4-12) mmol/L BUN 9 D (9-20) mg/dL Creatinine 0.61 L (0.7-1.3) mg/dL Estim Creat Clear Calc Not Reportable Estimated GFR > 60 (59 - ) Glucose 115 H (65-110) mg/dL Calcium 8.8 (8.4-10.2) mg/dL Total Bilirubin 0.8 (0.2-1.3) mg/dL AST 30 (17-59) U/L ALT 26 (6-50) U/L Alkaline Phosphatase 45 (38-126) U/L Total Protein 5.9 L (6.3-8.2) g/dL Albumin 3.6 (3.5-5.1) g/dL Urine Color Dark yellow (Yellow) Urine Appearance Clear (Clear) Urine pH 7.0 (5.0-9.0) Ur Specific [place] 1.024 (1.001-1.035) Urine Protein Negative (Negative) mg/dL Urine Glucose (UA) 3+ H (Negative) mg/dL Urine Ketones Trace H (Negative) mg/dL Ur Blood (Man) Negative (Negative) Urine Nitrate Negative (Negative) Urine Bilirubin Negative (Negative) Urine Urobilinogen 1.0 (<2.0) mg/dL Leukocyte Esterase Rfl Negative (Negative) LAM/UL <Kevin Joseph MD - Last Filed: 04/16/25 22:06> Imaging Data Radiologist's impression: Impressions Head CT 04/16/25 16:51 IMPRESSION: No acute intracranial process. <Kevin Joseph MD - Last Filed: 04/16/25 22:06> Discharge Plan Discharge Clinical Impression: Dementia Qualifiers: Dementia type: unspecified type Dementia severity: mild Dementia behavioral or psychological symptom: without behavioral, psychotic, or mood disturbance or anxiety Qualified Code(s): F03.A0 - Unspecified dementia, mild, without behavioral disturbance, psychotic disturbance, mood disturbance, and anxiety <Eufemia Finley APRN - Last Filed: 04/16/25 16:36> Patient Disposition: Home <Eufemia Finley APRN - Last Filed: 04/16/25 16:36> Condition: Stable <Eufemia Finley APRN - Last Filed: 04/16/25 16:36> Instructions: Antibiotic Form, Dementia (ED) <Eufemia Finley APRN - Last Filed: 04/16/25 16:36> Patient Language: Vietnamese <Eufemia Finley APRN - Last Filed: 04/16/25 16:36> Prescriptions: No Action prochlorperazine maleate 10 mg tablet 10 mg PO DAILY finasteride 5 mg tablet 5 mg PO DAILY atorvastatin 40 mg tablet 20 mg PO DAILY coenzyme Q10 [Co Q-10] 200 mg capsule 200 mg PO DAILY magnesium 200 mg tablet 200 mg PO DAILY sotalol 120 mg tablet 120 mg PO Q12H dapagliflozin propanediol [Farxiga] 5 mg tablet 5 mg PO DAILY acetaminophen 325 mg capsule 325 mg PO Q6H PRN polyethylene glycol 3350 17 gram/dose powder 17 g PO DAILY gabapentin 100 mg capsule 100 mg PO TID Patient Comments: as per pain management spironolactone 25 mg tablet 12.5 mg PO DAILY Patient Comments: as per cardio Entresto 24-26 mg tablet 1 tablet PO BID Patient Comments: Take 1 tab AM and 1 tab PM calcium carbonate [Calcium 600] 600 mg calcium (1,500 mg) Tablet 600 mg PO DAILY mupirocin [Centany] 2 % ointment 1 applic topical QID 5 Days Qty: 22 0RF ondansetron 4 mg tablet,disintegrating 4 mg PO Q8H PRN (Reason: nausea and vomiting) Qty: 14 0RF meclizine 25 mg tablet 25 mg PO TID PRN (Reason: dizziness) Qty: 30 0RF azelastine 137 mcg (0.1 %) spray,non-aerosol See Rx Instructions .ROUTE .COMPLEX Qty: 30 3RF Dose Instruction: USE 1 SPRAY IN EACH NOSTRIL EVERY 12 HOURS Rx Instructions: USE 1 SPRAY IN EACH NOSTRIL EVERY 12 HOURS fluocinolone acetonide oil 0.01 % drops See Rx Instructions EACH EAR .COMPLEX Qty: 20 3RF Rx Instructions: Use as previously directed. Typically several drops, each ear, max two times per day. buspirone 5 mg tablet 5 mg PO BID Qty: 180 1RF <Eufemia Finley APRN - Last Filed: 04/16/25 16:36> Follow-up/Referrals: Cheo Potts MD [Primary Care Provider] - Larry Norris MD [Physician] - <Eufemia Finley APRN - Last Filed: 04/16/25 16:36>
--- NOTE | 2025-04-16 16:37 | PC.NURSE ---
Pt. to CT.
[2025-04-16 17:13] LABS: Hematocrit 40.3 % (42.0-52.0); Hemoglobin 13.4 g/dL (14.0-18.0); Immature Granulocyte Percent A 0.4 % (0-0.5); Lymphocytes Absolute Auto 1.60 K/mm3 (0.9-3.2); Mean Corpuscular HGB Conc 33.3 g/dl (32-36); Mean Corpuscular Hemoglobin 31.0 pg (26-34); Mean Corpuscular Volume 93.3 fl (80-100); Nucleated Red Blood Cells Absolute Auto 0.000 K/mm3 (0.0-0.012); Nucleated Red Blood Cells Perc 0.0 % (0.0-0.2); Platelet Count Result 220 k/mm3 (150-375); Red Blood Count 4.32 M/mm3 (4.6-6.20); White Blood Count 5.1 K/mm3 (4.5-10.0)
[2025-04-16 17:21] LABS: Add Urine Microscopic? YES; Appearance Urine Clear (Clear); Glucose Urine UA 3+ mg/dL (Negative); Leukocyte Esterase Ur Negative LEU/UL (Negative); Nitrate Urine Negative (Negative); Specific Grav Ur 1.024 (1.001-1.035)
[2025-04-16 17:24] LABS: Alanine Aminotransferase 26 U/L (6-50); Albumin Level 3.6 g/dL (3.5-5.1); Alkaline Phosphatase 45 U/L (38-126); Anion Gap 3 mmol/L (4-12); Aspartate Amino Transferase 30 U/L (17-59); Bilirubin,Total 0.8 mg/dL (0.2-1.3); Blood Urea Nitrogen 9 mg/dL (9-20); Calcium 8.8 mg/dL (8.4-10.2); Carbon Dioxide 28 mmol/L (22-30); Chloride 99 mmol/L (98-107); Estimated Glomerular Filt Rate > 60; Glucose 115 mg/dL (65-110); INR 0.9; Potassium 4.4 mmol/L (3.4-5.0); Prothrombin Time 12.5 Seconds (11.1-14.7); Sodium 130 mmol/L (137-145); Total Protein 5.9 g/dL (6.3-8.2)
[2025-04-16 17:25] LABS: Partial Thromboplastin Time 25.6 Seconds (22.3-36.8)
--- OUTSIDE RECORDS SUMMARY | 2025-04-16 18:49 | XMS_ITS | Encounter Summary ---
Author Organization [facility] Address [address] [facility] [place] [address] Phone Care Team Providers Care Jointer Machine Operator Name Role Phone Cheo Potts MD Primary Care Provider Marques Barksdale DO Unavailable [phone] Barbara Warner APRN, BURLAP MAN Unavailable Qi Norris MD Unavailable [phone] Reason for Visit * Reason Comments Medication Refill Encounter Details Date Type Department Care Team (Late st Contact Info) Description 11/20/2022 Refill [facility] - Gastroenterology [facility] [address] [place] [id number] Renetta Jacob Duyen, PAC [address] [place] [address] Medication Refill Social History Tobacco Use Types [...] present documented in this encounter Care Teams Jointer Machine Operator Relationship Specialty Start Date End Date Cheo Potts MD [address] [facility] [address] [place] [address] PCP - General Family Medicine 11/09/15 Marques Barksdale DO [address] [place] [address] [address] [place] [address] Gastroenterology 11/12/15 Barbara Warner APRN, BURLAP MAN [address] [place] [address] Nurse Practitioner Advanced Practice Nurse 10/24/22 Qi Norris MD [address] [place] [address] Consulting Physician Gastroenterology 05/12/22 documented as of this encounter
--- OUTSIDE RECORDS SUMMARY | 2025-04-16 18:49 | XMS_ITS | Encounter Summary ---
Author Organization [facility] Address [address] [place] [address] Care Team Providers Care Service Rig Operator Name Role Phone Cheo Potts MD Primary Care Provider [phone] Reason for Visit * Reason Comments Refill Request Encounter Details Date Type Department Care Team (Late st Contact Info) Description 04/16/2025 Refill [facility] - [address] [place] [id number] Manish Calloway MD [facility] [phone] Refill Request Social History Tobacco Use Types Packs/Day Years Used Date Smoking Tobacco: Former Cigarettes Q uit: 09/04/1971 Alcohol Use Standard Drinks/Week Comments No 0 (1 standard drink = 0.6 oz pur e alcohol) Sex and Gender Information Value Date Recorded Sex Assigned at Not on file 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 Answer Date of Assessment Author No 09/27/2024 3:04 PM Christine De La Fuente RN * Is person blind or have serious difficulty seeing? Answer Date of Assessment Author No 09/27/2024 3:04 PM Christine De La Fuente RN * Does person have serious difficulty walking/climbing stairs? Answer Date of Assessment Author No 09/27/2024 3:04 PM Christine De La Fuente RN * Does person have difficulty dressing/bathing? Answer Date of Assessment Author No 09/27/2024 3:04 PM Christine De La Fuente RN * Does person have difficulty doing errands alone? Answer Date of Assessment Author No 09/27/2024 3:04 PM Christine De La Fuente RN documented as of this encounter Mental Status * Does person have difficulty concentrating/remembering/making decisions? Answer Entry Date Author No 09/27/2024 3:04 PM Christine De La Fuente RN documented in this encounter Plan of Treatment Upcoming Encounters Date Type Department Care Team (Late st Contact Info) Description 06/19/2025 12:30 PM CDT Office Visit [facility] - GI [address] [facility] [place] [address] Marlene Gay PA-C [address] [place] [address] documented as of this encounter Goals Goal Patient Goal Type Associated Problems Recent Progress Patient-Stated? Author Medication Management General No Berenice Preciado RN Note: Expected end date: ongoing Interventions: Take all medications as prescribed Let your doctor know right away about any changes in your medications Make sure to request a refill of your medication at least one week prior to your last dose documented as of this encounter Visit Diagnoses Not on filedocumented in this encounter Care Teams Service Rig Operator Relationship Specialty Start Date End Date Cheo Potts MD [address] [place] [address] PCP - General 01/07/16 documented as of this encounter
--- OUTSIDE RECORDS SUMMARY | 2025-04-16 18:49 | XMS_ITS | Encounter Summary ---
Author Organization [facility] Address [address] [place] [address] Phone Care Team Providers Care Hydrometer Calibrator Name Role Phone Cheo Potts MD Primary Care Provider Neftaly Portillo MD Unavailable [phone] Qi Norris MD Unavailable [phone] Katharina Mac INSPECTOR MACHINE PARTS Unavailable Tree Ruiz MD PhD Unavailable [phone] Oanh Trevizo INSPECTOR MACHINE PARTS Unavailable [phone] Torin Almodovar MD Unavailable Encounter Details Date Type Department Care Team (Late st Contact Info) Description 04/04/2025 Results Follow-Up [facility] Cardiology [address] [facility] [address] [place] [address] Mae Villanueva RMA SCAN - LABS Social History Tobacco Use Types Packs/Day Years Used Date Smoking Tobacco: Former Cigarettes 1 13 1 959 - 1971 Passive Smoke Exposure: Past Smokeless Tobacco: Never Alcohol Use Standard Drinks/Week Comments Yes 7 (1 standard drink = 0.6 oz pur e alcohol) 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 Gender Identity Male 11/05/2020 12:05 PM NEWS WRITER Sexual Orientation Not on file documented as of this encounter Plan of Treatment Not on file documented as of this encounter Visit Diagnoses Not on filedocumented in this encounter Care Teams Hydrometer Calibrator Relationship Specialty Start Date End Date Cheo Potts MD [address] [facility] [address] [facility] [address] [place] [address] PCP - General 01/03/17 Neftaly Portillo MD [address] [facility] [address] [place] [address] Consulting Physician Cardiology 11/15/18 Qi Norris MD [address] [address] Referring Physician Gastroenterology 05/10/23 Katharina Mac NP [address] [address] Nurse Practitioner Cardiology 11/21/23 Tree Ruiz MD PhD [address] [address] Consulting Physician Cardiology 11/21/23 [place] [address] [address] [facility] [address] [place] [address] Nurse Practitioner Snorkelling Instructor 09/18/24 [place] [address] [address] [facility] [address] [place] [address] Consulting Physician Pain Management 11/13/24 documented as of this encounter
--- OUTSIDE RECORDS SUMMARY | 2025-04-16 18:49 | XMS_ITS | Encounter Summary ---
Author Organization [facility] Address [address] [place] [address] Phone Care Team Providers Care Human Relations Manager Name Role Phone Cheo Potts MD Primary Care Provider Neftaly Portillo MD Unavailable [phone] Tree Ruiz MD PhD Unavailable [phone] Katharina Mac WINCH DRIVER Unavailable Qi Norris MD Unavailable [phone] Yuly Nieves RN Unavailable Katharina Mac WINCH DRIVER Unavailable [phone] Tree Ruiz MD PhD Unavailable [phone] Oanh Trevizo WINCH DRIVER Unavailable [phone] Oanh Trevizo WINCH DRIVER Unavailable [phone] Torin Almodovar MD Unavailable Encounter Details Date [...] on file 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[employer] [facility] Gender Identity Male 11/05/2020 12:05 PM [employer] Sexual Orientation Not on file documented as [...] on filedocumented in this encounter Care Teams Human Relations Manager Relationship Specialty Start Date End Date Cheo Potts MD [address] [place] [address] PCP - General 01/03/17 Neftaly Portillo MD 5201 [facility] [address] [place] [address] Consulting Physician Cardiology 11/15/18 Tree Ruiz MD PhD [address] [facility] [address] [place] [address] Referring Physician Cardiology 12/10/20 11/20/23 Katharina Mac NP 5[address] [facility] [address] [place] [address] Referring Physician Cardiology 12/10/20 11/20/23 Qi Norris MD 2 [facility] [address] [place] [address] Referring Physician Gastroenterology 05/10/23 Yuly Nieves RN 4546 [facility] [address] [place] [address] SHOP Outpatient Software Engineer Sales 09/22/23 10/18/23 Katharina Mac NP 4590 [facility] [address] [place] [address] Nurse Practitioner Cardiology 11/21/23 Tree Ruiz MD PhD 4590 [facility] [address] [place] [address] Consulting Physician Cardiology 11/21/23 Oanh Tervizo, DEBORA [address] [address] [address] [place] [address] Nurse Practitioner Tobacco Shaker 07/18/24 11/12/24 [place] [address] [address] Nurse Practitioner Tobacco Shaker 09/18/24 [place] [address] [facility] [address] [place] [address] Consulting Physician Pain Management 11/13/24 documented as of this encounter
--- OUTSIDE RECORDS SUMMARY | 2025-04-16 18:49 | XMS_ITS | Clinical Summary ---
Author Organization [facility] Address [address], [facility] [address] [place] [address] Phone Care Team Providers Care Head Of Business Development Name Role Phone Cheo Potts MD Primary Care Provider Marques Barksdale DO Unavailable [phone] Barbara Warner APRN, CASE INVESTIGATOR Unavailable Qi Norris MD Unavailable [phone] Allergies Active Allergy Reactions Criticality Noted Date [...] low back pain without sciatica 0 09/13/2022 custodial current use of anticoagulant 3 History of alcohol abuse 07/16/2021 Hepatomegaly 07/16/2021 Chronic idiopathic constipation 07/16/2021 Gastroesophageal reflux disease without esophagi tis 07/16/2021 PAD (peripheral artery disease) 02/26/2019 Coronary artery disease invo lving [place] coronary artery of [place] heart without angina pectoris 01/30/2019 Overview (10/24/2022): Added automatically from request for surgery [id number] Sick sinus syndrome 04/20/2018 Overview (10/24/2022): Added automatically from request for surgery [id number] Last Assessment & Plan: Cardiac resynchronization defibrillator [...] Insurance MEDICARE [facility] Care Teams Head Of Business Development Relationship Specialty Start Date End Date Cheo Potts MD [address] [place] [address] PCP - General Family Medicine 11/09/15 Marques Barksdale DO [address] [place] [address] Gastroenterology 11/12/15 Barbara Warner APRN, CASE INVESTIGATOR [address] [place] [address] Nurse Practitioner Advanced Practice Nurse 10/24/22 Qi Norris MD [address] [place] [address] Consulting Physician Gastroenterology 05/12/22
--- OUTSIDE RECORDS SUMMARY | 2025-04-16 18:49 | XMS_ITS | Clinical Summary ---
Author Organization [facility] [employer] Address [address] [place] [address] Care Team Providers Care Clinical Aide Name Role Phone Cheo Potts MD Primary Care Provider [phone] Source Comments [facility],non-owned Affiliates and Associated Physician Practices is amultiple site organization consisting of ambulatory clinics and hospital sitesin [place], [place], [place] and [place]. This disclosure is being madepursuant to the Care Everywhere program and may not contain all information available regarding this patient. Last updated 18.[facility] [employer] Allergies Active Allergy Reactions Criticality Noted Date [...] Active azelastine (Astelin) 0.1 % nasal spray [place] 2 (two) sprays into each nostril once [...] (12/17/2024): Added automatically from request for surgery [id number] Sick sinus syndrome 04/20/2018 Overview (12/17/2024): Added automatically from request for surgery [id number] Last Assessment & Plan: Cardiac resynchronization defibrillator [...] (12/17/2024): Added automatically from request for surgery [id number] Dizziness and giddiness 01/10/2017 High risk medication [...] Encounters Date Type Department Care Team Description 04/16/2025 Refill [facility] - [address] [place] [phone] Manish Calloway MD Refill Request from Last 3 Months Social History Tobacco Use Types Packs/Day Years Used Date Smoking Tobacco: Former Cigarettes Q uit: 09/04/1971 Tobacco Cessation:Counseling Given: Not Answered Alcohol Use Standard Drinks/Week Comments No 0 (1 standard drink = 0.6 oz pur e alcohol) Sex and Gender Information Value Date Recorded Sex Assigned at Not on file Legal Sex Male 6:51 PM CHIP MUCKER Gender Identity Not on file Sexual Orientation Not on file Last Filed Vital Signs Vital Sign Reading Time Taken Comments Blood Pressure 120/75 12/17/2024 12:33 PM CDT Pulse 72 12/17/2024 12:33 PM CDT Temperature 36.9 C (98.4 F) 12/17/2024 12:33 PM CDT Respiratory Rate 11 09/27/2024 3:15 PM CHIP MUCKER Oxygen Saturation 98% 12/17/2024 12:33 PM CDT Inhaled Oxygen Concentration - - Weight 83.1 kg (183 lb 3.2 oz) 12/17/2024 12:33 PM CDT Height 172.7 cm (5' 8) 12/17/2024 12:33 PM CDT Body Mass Index 27.86 12/17/2024 12:33 PM CDT Plan of Treatment Upcoming Encounters Date Type Department Care Team (Late st Contact Info) Description 06/19/2025 12:30 PM CDT Office Visit [facility] - GI [address] [facility], [place] [address] Marlene Gay PA-C [address] [place] [address] Health Maintenance Due Date Last [...] your last dose Insurance MEDICARE ANTHEM MEDICARE ANTHEM Care Teams Clinical Aide Relationship Specialty Start Date End Date Cheo Potts MD [address] [place] [address] [facility] - General 01/07/16
--- OUTSIDE RECORDS SUMMARY | 2025-04-16 18:49 | XMS_ITS | Encounter Summary ---
Author Organization [facility] Address [address] [place] [address] Phone Care Team Providers Care Underwear Finisher Name Role Phone Cheo Potts MD Primary Care Provider Neftaly Portillo MD Unavailable [phone] Tree Ruiz MD PhD Unavailable [phone] Katharina Mac LENS CEMENTER Unavailable Qi Norris MD Unavailable [phone] Yuly Nieves RN Unavailable Katharina Mac LENS CEMENTER Unavailable Tree Ruiz MD PhD Unavailable [phone] Oanh Trevizo LENS CEMENTER Unavailable Oanh Trevizo LENS CEMENTER Unavailable [phone] Torin Almodovar MD Unavailable [phone] Reason for Visit * Reason Onset Date Comments CALL BACK 04/20/2018 Encounter Details Date Type Department Care Team (Late st Contact Info) Description 04/20/2018 Telephone [facility] Cardiology [address] [facility] 8th [place] [address] [place] [address] Tree Ruiz MD PhD [address] [facility] [address] [place] [address] CALL BACK Social History Tobacco Use Types Packs/Day Years Used Date Smoking Tobacco: Former Smokeless Tobacco: Never Alcohol Use Standard Drinks/Week Comments No 7 (1 standard drink = 0.6 oz pur e alcohol) Sex and Gender Information Value Date Recorded Sex Assigned at Not on file Legal Sex Male 3:18 AM VOLCANOLOGIST Gender Identity Male 11/05/2020 12:05 PM VOLCANOLOGIST Sexual Orientation Not on file documented as of this encounter Plan of Treatment Not on file documented as of this encounter Visit Diagnoses Not on filedocumented in this encounter Care Teams Underwear Finisher Relationship Specialty Start Date End Date Cheo Potts MD [address] [place] [address] PCP - General 01/03/17 Neftaly Portillo MD 5201 [facility] [address] [place] [address] Consulting Physician Cardiology 11/15/18 Tree Ruiz MD PhD [address] [facility] [address] [place] [address] Referring Physician Cardiology 12/10/20 11/20/23 Katharina Mac NP [address] [facility] [address] [place] [address] Referring Physician Cardiology 12/10/20 11/20/23 Qi Norris MD [address] [address] Referring Physician Gastroenterology 05/10/23 Yuly Nieves, CLARISSA [address] [facility] [address] [place] [address] SHOP Outpatient Access Rep 09/22/23 10/18/23 Katharina Mac NP 45[address] [facility] [address] [place] [address] Nurse Practitioner Cardiology 11/21/23 Tree Ruiz MD PhD [address] [facility] [address] [place] [address] Consulting Physician Cardiology 11/21/23 [place] [address] [address] Nurse Practitioner Strap Making Machine Operator 07/18/24 11/12/24 [place] [address] [address] Nurse Practitioner Strap Making Machine Operator 09/18/24 [place] [address] [address] [facility] [address] [place] [address] Consulting Physician Pain Management 11/13/24 documented as of this encounter
--- OUTSIDE RECORDS SUMMARY | 2025-04-16 18:49 | XMS_ITS | Encounter Summary ---
Author Organization [facility] Address [address] [place] [address] Phone Care Team Providers Care Fleet Service Clerk Name Role Phone Cheo Potts MD Primary Care Provider Neftaly Portillo MD Unavailable [phone] Tree Ruiz MD PhD Unavailable [phone] Katharina Mac ORDER EDITOR Unavailable Qi Norris MD Unavailable [phone] Yuly Nieves RN Unavailable [phone] Katharina Mac ORDER EDITOR Unavailable Tree Ruiz MD PhD Unavailable [phone] Oanh Trevizo ORDER EDITOR Unavailable [phone] Oanh Trevizo ORDER EDITOR Unavailable [phone] Torin Almodovar MD Unavailable Encounter Details Date Type Department Care Team (Latest Contact Info) Description 10/05/2022 Orders Only [facility] Berenice Olivares, RN [address] [facility] [address] [place] [address] Social History Tobacco Use Types [...] on file Legal Sex Male 3:18 AM PET CARE ASSISTANT Gender Identity Male 11/05/2020 12:05 PM PET CARE ASSISTANT Sexual Orientation Not on file documented [...] on filedocumented in this encounter Care Teams Fleet Service Clerk Relationship Specialty Start Date End Date Cheo Potts MD [address] [place], [place] [address] PCP - General 01/03/17 Neftaly Portillo MD [address] [facility] [address] [facility] [address] [place] [address] Consulting Physician Cardiology 11/15/18 Tree Ruiz MD PhD [address] [facility] [address] [facility] [address] [place] [address] Referring Physician Cardiology 12/10/20 11/20/23 Katharina Mac NP [address] [facility] [address] [facility] [address] [place] [address] Referring Physician Cardiology 12/10/20 11/20/23 Qi Norris MD [address] [address] Referring Physician Gastroenterology 05/10/23 Yuly Nieves, RN [address] [place] [address] SHOP Outpatient Agility Instructor 09/22/23 10/18/23 Katharina Mac, DEBORA [address] [place] [address] Nurse Practitioner Cardiology 11/21/23 Tree Ruiz MD PhD [address] [place] [address] Consulting Physician Cardiology 11/21/23 [place] [address] [address] [facility] [address] [place] [address] Nurse Practitioner Forensic Sergeant 07/18/24 11/12/24 [place] [address] [address] [facility] [address] [place] [address] Nurse Practitioner Forensic Sergeant 09/18/24 [place] [address] [address] [facility] [address] [place] [address] Consulting Physician Pain Management 11/13/24 documented as of this encounter
--- OUTSIDE RECORDS SUMMARY | 2025-04-16 18:49 | XMS_ITS | Encounter Summary ---
Author Organization [facility] Address [address] [place] [address] Phone Care Team Providers Care Client Administrator Name Role Phone Cheo Potts MD Primary Care Provider Marques Barksdale DO Unavailable [phone] Barbara Warner APRN, FOAM RUBBER CURER Unavailable Qi Norris MD Unavailable [phone] Reason for Visit * Reason Comments Medication Refill Encounter Details Date Type Department Care Team (Late st Contact Info) Description 08/23/2024 Refill [facility] - Gastroenterology [facility] [address] [place] [id number] Barbara Warner APRN, FOAM RUBBER CURER [address] [place] [address] Medication Refill Social History Tobacco Use Types [...] Oanh Recinos RN - 08/23/2024 1:57 PM TONGUE BINDER Medication refilled and signed per [facility] chronic medication standing order for pediatric and adult patients. UE BINDER documented in this encounter Plan of Treatment Not on file documented as of this encounter Visit Diagnoses Diagnosis Gastroesophageal reflux disease, unspecified whether esophagitis present documented in this encounter Care Teams Client Administrator Relationship Specialty Start Date End Date Cheo Potts MD [address] [place] [address] [address] [place] [address] PCP - General Family Medicine 11/09/15 Marques Barksdale DO [address] [place] [address] [place] [address] Gastroenterology 11/12/15 Barbara Warner APRN, FOAM RUBBER CURER [address] [place] [address] Nurse Practitioner Advanced Practice Nurse 10/24/22 Qi Norris MD [address] [place] [address] Consulting Physician Gastroenterology 05/12/22 documented as of this encounter
--- OUTSIDE RECORDS SUMMARY | 2025-04-16 18:49 | XMS_ITS | Clinical Summary ---
Author Organization [facility] Address [address] [place] [address] Care Team Providers Care Auto Wrecker Name Role Phone Cheo Potts MD Primary Care Provider Marty Torres MD Unavailable Qi Norris MD Unavailable [phone] Katharina Mac ORCHESTRA MUSICIAN Unavailable Tree Ruiz MD PhD Unavailable [phone] Oanh Trevizo ORCHESTRA MUSICIAN Unavailable [phone] Torin Almodovar MD Unavailable [phone] Allergies Active Allergy Reactions Criticality Noted Date Comments Celecoxib Other (See comments) Low Altered depth perception Ciprofloxacin Other (See comments) Low 12/06/2017 FEELS BAD Latex Rash,Itching Medium 04/11/2017 Medications calcium carbonate-vitamin D3 1,500 mg (600mg elemental) -800 unit per tabletIndications :Hypocalcemia Prevention,Preven tion of Vitamin D Deficiency 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 mouth emt dispatcher 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 Active coenzyme Q10 200 mg capsuleIndication s:supplement Take 1 capsule (200 mg total) by mouth nightly Active magnesium oxide 200 mg tablet,chewableIn dications:supplem ent Take 200 mg by mouth emt dispatcher 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 Active polyethylene glycol (MIRALAX) 17 gram packetIndications :constipation Take 1 packet (17 g total) by mouth nightly Active multivitamin no.44-vit D3-K 1,000-800 unit-mcg capsuleIndication s:Mineral Deficiency Prevention,Vitami n Deficiency Prevention 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 mouth emt dispatcher 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 Active azelastine (ASTELIN) 137 mcg [...] 1 tablet (5 mg total) by mouth emt dispatcher 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 06/16/20 22 Active cholecalciferol 400 [...] GI bleeding 02/08/2023 Lumbar facet arthropathy 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 3 Lumbar radiculopathy 09/13/2022 Chronic midline low back pain without sciatica 0 09/13/2022 DDD (degenerative disc disease), lumbar 09/13/19 Sacroiliitis 09/13/2022 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 Chronic idiopathic constipation 07/16/2021 Hepatomegaly 07/16/2021 History of alcohol abuse 07/16/2021 PAD (peripheral artery disease) 02/26/2019 Coronary artery disease invo lving pokagon coronary artery of pokagon heart without angina pectoris 01/30/2019 Overview (01/30/2019): Added automatically from request for surgery [id number] Abnormal EKG 01/30/2019 Overview (01/30/2019): Added automatically from request for surgery [id number] Sick sinus syndrome 04/20/2018 Overview (04/20/2018): Added automatically from request for surgery [id number] Assessment & Plan (04/27/2018 8:59 AM CDT): [...] PM CDT): - mild 3v dz on [facility] 03/2015 - ct ASA, statin [...] 07/03/2012 Ascending aortic aneurysm 07/03/2012 Atrial fibrillation ([facility]/HCC) 01/23/2008 Referred otalgia 03/15/2007 Inguinal hernia 04/19/2005 Left bundle branch block (LBBB) 07/09/2003 Resolved Problems Problem Noted Date Diagnosed Date Resolved Date Nocturnal hypoxemia 02/26/2019 11/06/19 25 Encounters Date Type Department Care Team Description 04/04/2025 Results Follow-Up [facility] Cardiology [address] [place] [address] [address] [place] [address] Mae Villanueva RMA SCAN - LABS 04/04/2025 Results Follow-Up [facility] Cardiology [address] [place] [address] [address] [place] [address] Mae Villanueva RMA US Carotids Duplex Bilateral 04/03/2025 1:59 PM CDT - 04/03/2025 11:59 PM CDT Hospital Encounter [facility] Diagnostic Imaging [address] [place] [address] Atelectasis Discharge Disposition: Discharge to home or self care 04/03/2025 1:00 PM CDT - 04/03/2025 11:59 PM CDT Hospital Encounter [facility] Respiratory Therapy [address] [place] [address] Dyspnea and respiratory abnormalities Discharge Disposition: Discharge to home or self care 04/02/2025 1:54 PM CDT - 04/02/2025 11:59 PM CDT Hospital Encounter [facility] [address] [place] [address] Oanh Trevizo NP Sacroiliitis (Primary Dx); Chronic midline low back pain without sciatica; Lumbar radiculopathy; Spinal stenosis of lumbar region without neurogenic claudication; Primary hypertension Discharge Disposition: Discharge to home or self care 04/02/2025 11:30 AM CDT Ancillary Procedure [facility] [address] [facility] [address] [place] [address] Bilateral carotid bruits 04/01/2025 10:00 AM CDT Office Visit [facility] Cardiology [address] [facility] [address] [place] [address] Marty Torres MD Bilateral carotid bruits (Primary Dx); Paroxysmal atrial fibrillation (HCC) 04/01/2025 Orders Only [facility] CARDIOLOGY Berenice Olivares RN 03/31/2025 Telephone [facility] Cardiology [facility] 8th [place] [address] [place] [address] Marty Torres MD 03/31/2025 Telephone [facility] Cardiology [facility] 8th [place] [address] [place] [address] Marty Torres MD Dizziness 03/19/2025 11:15 AM CDT Office Visit [facility] Pulmonology [address] [facility] [address] [place] [phone] Yasmeen Foley MD Dyspnea and respiratory abnormalities (Primary Dx); Atelectasis 03/12/2025 Telephone [facility] [address] [place] [address] Marlene Douglas 03/04/2025 11:45 AM CDT Office Visit [facility] Orthopaedic Surgery [address] [facility] 2nd Floor [address] [place] [address] Bell Smith PA Primary osteoarthritis of both knees (Primary Dx) 02/21/2025 10:50 AM CDT - 02/21/2025 11:55 AM CDT Surgery [address] [place] [address] Marty Torres MD LEFT HEART CATHETERIZATION WITH CORONARY ANGIOGRAPHY AND WITH OR WITHOUT LEFT VENTRICULOGRAM [id number] 02/21/2025 10:50 AM CDT - 02/21/2025 11:59 PM CDT Hospital Encounter [address] [place] [address] Marty Torres MD Chest pain, unspecified type; Coronary artery disease of pokagon artery of pokagon heart with stable angina pectoris; Dizziness Discharge Disposition: Discharge to home or self care 02/20/2025 1:15 PM CDT Office Visit [facility] Neurosurgery [address] [facility] 6th [place] [address] [place] [address] Ewa Nath NP Lumbar stenosis with neurogenic claudication (Primary Dx); Lumbar spondylosis 02/20/2025 12:23 PM CDT - 02/20/2025 11:59 PM CDT Hospital Encounter [facility] [address] [place], [place] [id number] Lumbar spondylosis; Lumbar stenosis with neurogenic claudication Discharge Disposition: Discharge to home or self care 02/20/2025 Telephone [facility] Cardiology [address] [facility] 8th [place] [address] [place] [address] Marty Torres MD Procedure question/concern (cath) 02/17/2025 Results Follow-Up [facility] Cardiology [address] [facility] Medical Office Building [address] [place] [address] Mae Villanueva RMA CBC with auto differential, Basic metabolic panel 02/14/2025 4:35 PM CDT - 02/14/2025 11:59 PM CDT Hospital Encounter [facility] [employer] [address] [facility] [place] [address] Discharge Disposition: Discharge to home or self care 02/14/2025 Orders Only [facility] Cardiology [address] [facility] Medical Office Building [address] [place] [address] Tree Ruiz MD PhD 01/30/2025 Orders Only [facility] Neurosurgery [address] [facility] 6th [place] [address] [place] [phone] Ewa Nath, DEBORA Lumbar spondylosis (Primary Dx); Lumbar stenosis with neurogenic claudication 01/29/2025 Telephone [facility] Neurosurgery [address] [facility] 6th [place] [address] [place] [phone] Ewa Nath NP 01/17/2025 2:30 PM CDT Office Visit [facility] Orthopaedic Surgery [address] [facility] 2nd Floor [address] [place] [address] Bell Smith PA Primary osteoarthritis of both knees (Primary Dx) 01/17/2025 Telephone [facility] Neuro Sleep [address] [facility] 6th Floor [address] [place] [address] Rin Knapp RN DME order 01/16/2025 Orders Only [facility] Stroke [address] [facility] 6th Floor [address] [place] [address] Mauro Zamora MD CORNEL (obstructive sleep apnea) (Primary Dx) 01/16/2025 Telephone 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 Never 09/22/2023 Do you belong to any clubs o r organizations such as hoahaoism groups, unions, fraternal or athletic groups, or [...] on file Legal Sex Male 3:18 AM PRECISION STRUCTURAL METAL FITTER Gender Identity Male 11/05/2020 12:05 PM PRECISION STRUCTURAL METAL FITTER Sexual Orientation Not on file Obstetrics History [...] 01/15/2023, 09/11/2022 Medical Devices Implanted Type Area Horse And Wagon Driver Device Identifier Shelf Expiration Date Model / Serial / Lot Medtronic Cardiac Rhythm Mgmt 5076-52 Capsurefix Novus 6.2fr 2mm 52cm Bipolar Screw In Implantable Latex Free - [id number] - [id number] Implanted:Qty: 1 on 04/24/2018 by Osmany Pina MD at [facility] Pacemaker Left: Heart Medtronic Cardiac Rhythm Mgmt [id number] 03/08/2020 5076-52 / [id number] / Medtronic Cardiac Rhythm Mgmt 5076-45 Capsurefix Novus Od6.2 Fr; Odsec2 Mm L45 Cm Bipolar; Screw In; Im - [id number] - [id number] Implanted:Qty: 1 on 04/24/2018 by Osmany Pina MD at [facility] Pacemaker Left: Heart Medtronic Cardiac Rhythm Mgmt [id number] 02/13/2020 5076-45 / [id number] / Medtronic Inc [id number] Attain Performa Starfix 5.3fr 5.1fr 88cm Quadripolar Is4-Llll Latex Free - [id number] - [id number] Implanted:Qty: 1 on 04/24/2018 by Osmany Pina MD at [facility] Pacemaker Left: Heart Medtronic Inc 02/15/2020 [id number] / [id number] / Pacemaker Cardiac 11mm 19.9cu Cm 46.5x59mm Rain Surescan - [id number] - [id number] Implanted:Qty: 1 on 04/24/2018 by Osmany Pina MD at [facility] Pacemaker Left: Chest Medtronic Inc 06/17/2019 [id number] / [id number] / Moore V[employer] Device Clsr Perclose Prostyle Sut-Mediatd Closure-Repair Sys 53180-63 - [id number] - [id number] Implanted:Qty: 1 on 09/20/2023 by Antoine Nelson MD at [facility] Vascular Closure Device N/A: Femoral Vein [employer] 05/04/2025 34255-10 / [id number] / [id number] Procedures Procedure Name Priority Date/Time Associated Diagnosis Comments PULMONARY FUNCTION TEST (PFT) Routine 04/03/2025 2:20 PM CDT Dyspnea and respiratory abnormalities XR CHEST PA LATERAL 2 VIEWS Schedule Routine, Read Routine (OP Routine) 04/03/2025 2:09 PM CDT Atelectasis US CAROTIDS DUPLEX BILATERAL Schedule Routine, Read Routine (OP Routine) 04/02/2025 12:15 PM CDT Bilateral carotid bruits SCAN - LABS 04/01/2025 MD ARTHROCENTESIS ASPIR&/INJ MAJOR JT/BURSA W/O US Routine 03/04/2025 11:45 AM CDT Primary osteoarthritis of both knees LEFT HEART CATHETERIZATION WITH CORONARY ANGIOGRAPHY AND WITH AND WITHOUT LEFT VENTRICULOGRAM Routine 02/21/2025 12:06 PM CDT Chest pain, unspecified type Coronary artery disease of pokagon artery of pokagon heart with stable angina pectoris Dizziness XR [...] type Primary hypertension Coronary artery disease involving pokagon coronary artery of pokagon heart without angina pectoris CBC WITH AUTO DIFFERENTIAL Routine 02/13/2025 11:56 AM CDT Dizziness Chest pain, unspecified type Primary hypertension Coronary artery disease involving pokagon coronary artery of pokagon heart without angina pectoris MD ARTHROCENTESIS ASPIR&/INJ MAJOR JT/BURSA W/O US Routine [...] FVC PRE 3.20 2.72 - 4.89 L [facility] FEV1 PRE 2.51 1.91 - 3.60 L [facility] [id number] 78.35 59.14 - 88.12 % [facility] HWI22-48% PRE 2.08 0.70 - 3.76 L/s [facility] PEF PRE 10.43(A) 5.55 - 9.53 L/s [facility] DLCOc SB 19.42 17.89 - 31.75 ml/(min*mm Hg) [facility] DLCO/VA PRE 4.09 2.36 - 4.61 ml/(min*mm Hg*L) [facility] VA 4.74(A) 6.98 - 6.98 L [facility] TLC PRE 6.07 5.97 - 8.28 L [facility] VC PRE 3.27 2.98 - 4.82 L [facility] IC PRE 2.73(A) 2.99 - 2.99 L [facility] FRC PL PRE 3.34 2.82 - 4.80 L [facility] ERV PRE 0.54(A) 0.91 - 0.91 L [facility] RV PRE 2.80 2.23 - 3.58 L [facility] VTG 3.51 L [facility] RAW PRE 2.06(A) 3.06 - 3.06 cmH2O*s/L [facility] Anatomical Region Laterality Modality PFT 04/03/2025 [...] Alex Smart M.D. KH: NELSON Report ID: [id number] Reading Location: [place] [address] Procedure Note Alex Smart MD - 04/11/2025 [...] Alex Smart M.D. KH: NELSON Report ID: [id number] Reading Location: [place] [address] us Yasmeen Foley MD IMG XR PROCEDURES Final Resul t * US Carotids Duplex Bilateral (04/02/2025 12:15 PM CDT) Anatomical Region Laterality Modality Vascular Bilateral Ultrasound 04/02/2025 11:5 6 AM CDT Narrative 04/02/2025 8:56 PM CDT [facility] Cardiac Diagnostic Lab [address] [place] [address] Carotid Duplex Report Patient Name: DONALD FATIMA M : 1940 (84y 11m) Gender: M Study Date: 04/02/2025 11:56:23 AM Chancellor: Kayleen Post RVT Location: [facility] Order Provider: MARTY TORRES Quality: Adequate Ref Provider: MARTY TORRES PROCEDURES: Arterial Report: [id number]: Duplex scan of extracranial arteries; complete bilateral [...] of the right and left vertebral arteries. PAIMIUT VESSEL VELOCITY MEASUREMENTS: Right PSV (cm/s) Right [...] Procedure Note Marty Torres MD - 04/02/2025 [facility] Cardiac Diagnostic Lab [address] [place] [address] Carotid Duplex Report Patient Name: DONALD FATIMA M : 1940 (84y 11m) Gender: M Study Date: 04/02/2025 11:56:23 AM Chancellor: Kayleen Post RVT Location: [facility] Order Provider: MARTY TORRES Quality: Adequate Ref Provider: MARTY TORRES PROCEDURES: Arterial Report: [id number]: Duplex scan of extracranial arteries; completebilateral study. [...] of the right and left vertebral arteries. PAIMIUT VESSEL VELOCITY MEASUREMENTS: Right PSV (cm/s) Right [...] us Berenice Olivares RN Final Result * MD ARTHROCENTESIS ASPIR&/INJ MAJOR JT/BURSA W/O US (03/04/2025 [...] appropriate. No short V-V intervals. Presenting Rhythm (MD) Atrial Pacing-BiVentricular Pacing (AP-BiVP) --- AP/BVP 60 bpm. Arrhythmic events (AE) No new arrhythmic events in monitoring period --- Since 04/24/24: No AHR or VHR episodes. Anticoagulation (AC) Patient on anticoagulant therapy Patient prescribed Apixaban (Eliquis) Transmission Information (TI) Device Summary Report Scheduled Carelink SALESFORCE SPECIALIST-P transmission. Battery status ok (estimated 1.2 years remaining). AP 65.8%. FURNITURE TECHNICIAN 99.6%. No AHR or VHR episodes. Stable device function; no changes recommended. Pt to keep scheduled follow up with Johnna Navarrete ORCHESTRA MUSICIAN on 10/30/24. Cardiac Cath 02/22/19 Selective Coronary [...] unsuccessful. Adjusted Risk of Stroke for 4 [id number] Scores in Non valvular Atrial Fib [id number] acronym[2] Score [id number] acronym Unadjusted ischemic stroke rate (% per year)* Congestive HF 1 0 0.2 Hypertension 1 1 0.6 Age >=75 years 2 2 2.2 Diabetes mellitus 1 3 3.2 Stroke/TIA/TE 2 4 4.8 Vascular disease (prior TN, PAD, or aortic plaque) 1 5 7.2 [...] used for local anesthesia. 5. A 5F [place] sheath was placed in the right radial [...] complications were Noted. Pt remained hemodynamically stable. [id number] I personally performed or supervised the procedure [...] about verbage above please contact me at [phone]. Narrative 02/21/2025 6:13 PM CDT Table formatting from the original result was not included. CARDIAC CATHETERIZATION Patient: Donald Fatima [id number] : 1940 Date of Service: 02/21/2025 FINAL [...] followed by Dr. Qi Norris MD at [facility] he stated he is off aspirin [...] per tablet 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 mouth emt dispatcher 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 cholecalciferol 400 unit capsule Take 200 Units by mouth every other day coenzyme Q10 200 mg capsule Take 1 capsule (200 mg total) by mouth nightly dapagliflozin propanediol (FARXIGA) 10 mg tablet Take 1 tablet (10 mg total) by mouth daily 90 tablet 3 finasteride (PROSCAR) 5 mg tablet Take 1 tablet (5 mg total) by mouth emt dispatcher 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 fluocinolone in oil (DermOtic) 0.01 [...] mg tablet,chewable Take 200 mg by mouth emt dispatcher 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 multivitamin no.44-vit D3-K 1,000-800 unit-mcg capsule 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 mouth emt dispatcher 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 mupirocin (BACTROBAN) 2 % ointment [...] Medical History: Diagnosis Date Atrial fibrillation (CMS/HCC) ([facility]) s/p ablation in 2006 Awareness under anesthesia during ablation BPPV (benign paroxysmal positional vertigo) Cardiomyopathy (HCC) Carotid artery disease (HCC) CHF (congestive heart failure) (CMS/HCC) ([facility]) Coronary artery disease GERD (gastroesophageal reflux disease) Heart disease Heart failure (HCC) HFrEF (heart failure with reduced ejection fraction) (CMS/HCC) ([facility]) EF 42% Hyperlipidemia Hypertension OA (osteoarthritis) PUD [...] months of battery longevity noted Presenting Rhythm (MD) Atrial Pacing-BiVentricular Pacing (AP-BiVP) --- rate 64 [...] months of battery longevity noted Presenting Rhythm (MD) Atrial Pacing-BiVentricular Pacing (AP-BiVP) --- rate 64 [...] WBC 5.3 3.8 - 10.8 Thousand/u L [facility] RBC, POC 4.55 4.20 - 5.80 Million/uL [facility] Hgb 14.4 13.2 - 17.1 g/dL [facility] Hct 43.9 38.5 - 50.0 % [facility] MCV 96.5 80.0 - 100.0 fL [facility] MCH 31.6 27.0 - 33.0 pg [facility] MCHC 32.8 32.0 - 36.0 g/dL [facility] Comment: For adults, a slight decrease in the calculated MCHC value (in the range of 30 to 32 g/dL) is most likely not clinically significant; however, it should be interpreted with caution in correlation with other red cell parameters and the patient's clinical condition. Rdw 13.3 11.0 - 15.0 % [facility] Platelets 254 140 - 400 Thousand/u L [facility] MPV 9.1 7.5 - 12.5 fL [facility] Neutrophils, abs 2,544 1,500 - 7,800 cells/uL [facility] Lymphocytes, abs 2,104 850 - 3,900 cells/uL [facility] Monocyte abs 541 200 - 950 cells/uL [facility] Eosinophils, abs 69 15 - 500 cells/uL [facility] Basophils, abs 42 0 - 200 cells/uL [facility] Neutrophils 48 % [facility] Lymphocyte pct 39.7 % [facility] Monocytes 10.2 % [facility] Eosinophils 1.3 % [facility] Basophils 0.8 % [facility] Blood 02/13/2025 11:5 6 AM CDT 02/13/2025 11:57 AM CDT Narrative [facility] - 02/14/2025 3:06 AM CDT FASTING:NO FASTING: NO us Marty Torres MD LAB BLOOD ORDERABLES Final Res ult [facility] [address] [place] [address] * (ABNORMAL) Basic metabolic panel (02/13/2025 11:56 AM CDT) Pathologist [facility] Glucose 93 65 - 99 mg/dL [facility] Comment: Fasting reference interval BUN 13 7 - 25 mg/dL [facility] Creatinine 0.64(L) 0.70 - 1.22 mg/dL [facility] eGFR 95 > OR = 60 mL/min/1.7 3m2 [facility] BUN/creat ratio 20 6 - 22 (calc) [facility] Sodium 137 135 - 146 mmol/L [facility] Potassium, pl 4.1 3.5 - 5.3 mmol/L [facility] Chloride 100 98 - 110 mmol/L [facility] CO2 32 20 - 32 mmol/L [facility] Calcium 9.0 8.6 - 10.3 mg/dL [facility] Blood 02/13/2025 11:5 6 AM CDT 02/13/2025 11:57 AM CDT Narrative [facility] - 02/14/2025 3:06 AM CDT FASTING:NO FASTING: NO us Marty Torres MD LAB BLOOD ORDERABLES Final Res ult NAT [facility] [address] [place] [address] * MD ARTHROCENTESIS ASPIR&/INJ MAJOR JT/BURSA W/O US (01/17/2025 [...] MEDICARE BLUE CROSS MEDICARE SUPPLEMENT MEDICARE MEDICARE [facility]LY [facility] MEDICARE [facility] MEDICARE SUPPLEMENT MEDICARE [facility] MEDICARE SUPPLEMENT Advance Directives For more information, please contact: [phone] * Full Code (Latest Code Status on File) Date Activated Date Inactivated Comments 02/21/2025 9:02 AM 02/22/2025 4:33 AM * Full Code Date Activated Date Inactivated Comments 09/20/2023 6:27 PM 09/21/2023 7:45 PM * Full Code Date Activated Date Inactivated Comments 04/24/2018 5:50 PM 04/27/2018 2:46 PM * Full Code Date Activated Date Inactivated Comments 03/24/2018 11:24 PM 03/25/2018 4:51 PM Care Teams Auto Wrecker Relationship Specialty Start Date End Date Cheo Potts MD [address] [facility] [address] [place] [address] PCP - General 01/03/17 Marty Torres MD [address] [facility] [address] [place] [address] Consulting Physician Cardiology 11/15/18 Qi Norris MD [address] [address] Referring Physician Gastroenterology 05/10/23 Katharina Mac, DEBORA [address] [address] Nurse Practitioner Cardiology 11/21/23 Tree Ruiz MD PhD [address] [address] Consulting Physician Cardiology 11/21/23 [place] [address] [facility] [address] [place] [address] Nurse Practitioner Turn Down Man 09/18/24 [place] [address] [facility] [address] [place] [address] Consulting Physician Pain Management 11/13/24
--- OUTSIDE RECORDS SUMMARY | 2025-04-16 18:49 | XMS_ITS | Encounter Summary ---
Author Organization [facility] Address [address] [place] [address] Phone Care Team Providers Care Bandage Winding Machine Operator Name Role Phone Cheo Potts MD Primary Care Provider Neftaly Portillo MD Unavailable [phone] Tree Ruiz MD PhD Unavailable [phone] Katharina Mac SOFTWARE DEVELOPER Unavailable Qi Norris MD Unavailable [phone] Yuly Nieves RN Unavailable Katharina Mac SOFTWARE DEVELOPER Unavailable [phone] Tree Ruiz MD PhD Unavailable [phone] Oanh Trevizo SOFTWARE DEVELOPER Unavailable [phone] Oanh Trevizo SOFTWARE DEVELOPER Unavailable Torin Almodovar MD Unavailable [phone] Encounter Details Date Type Department Care Team (Latest Contact Info) Description 01/25/2023 Orders Only [facility] Berenice Olivares, RN [address] [facility] [address] [place] [address] Social History Tobacco Use Types [...] on file Legal Sex Male 3:18 AM 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 Gender Identity Male 11/05/2020 12:05 PM RATINGS ANALYST Sexual Orientation Not on file documented [...] on filedocumented in this encounter Care Teams Bandage Winding Machine Operator Relationship Specialty Start Date End Date Cheo Potts MD [address] [place], [place] [id number] PCP - General 01/03/17 Neftaly Portillo MD [address] [facility] [address] [place] [address] Consulting Physician Cardiology 11/15/18 Tree Ruiz MD PhD [address] [facility] [address] [place] [address] Referring Physician Cardiology 12/10/20 11/20/23 Katharina Mac NP [address] [facility] [address] [place] [address] Referring Physician Cardiology 12/10/20 11/20/23 Qi Norris MD [address] [address] Referring Physician Gastroenterology 05/10/23 Yuly Nieves, RN [address] [place] [address] [facility] Outpatient Cap And Stud Machine Operator 09/22/23 10/18/23 Katharina Mac, DEBORA [address] [place] [address] Nurse Practitioner Cardiology 11/21/23 Tree Ruiz MD PhD [address] [place] [address] Consulting Physician Cardiology 11/21/23 [place] [address] [facility] [address] [place] [address] Nurse Practitioner Dialysis Registered Nurse 07/18/24 11/12/24 [place] [address] [facility] [address] [place] [address] Nurse Practitioner Dialysis Registered Nurse 09/18/24 [place] [address] [facility] [address] [place] [address] Consulting Physician Pain Management 11/13/24 documented as of this encounter
--- OUTSIDE RECORDS SUMMARY | 2025-04-16 18:49 | XMS_ITS | Encounter Summary ---
Author Organization [facility] Address [address] [place] [address] Phone Care Team Providers Care Inspector Pawnshop Detail Name Role Phone Cheo Potts MD Primary Care Provider Neftaly Portillo MD Unavailable [phone] Qi Norris MD Unavailable [phone] Katharina Mac CATH LAB RADIOLOGY TECHNICIAN Unavailable Tree Ruiz MD PhD Unavailable [phone] Oanh Trevizo CATH LAB RADIOLOGY TECHNICIAN Unavailable [phone] Torin Almodovar MD Unavailable [phone] Encounter Details Date Type Department Care Team (Late st Contact Info) Description 02/17/2025 Results Follow-Up [facility] Cardiology [address] [facility] [address] [place] [address] Mae Villanueva RMA CBC with auto differential, Basic metabolic panel Social History Tobacco Use Types Packs/Day Years Used Date Smoking Tobacco: Former Cigarettes Q uit: 1972 Passive Smoke Exposure: Past Smokeless Tobacco: Never Alcohol Use Standard Drinks/Week Comments Yes 7 (1 standard drink = 0.6 oz pur e alcohol) [facility] Utilities Answer Date Recorded In the past 12 months has Here@ Networks electric, gas, oil, or water company threatened [...] often do you attend chur ch or buddhism services? 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 Sexual Orientation Not on file documented as of this encounter Plan of Treatment Not on file documented as of this encounter Visit Diagnoses Not on filedocumented in this encounter Care Teams Inspector Pawnshop Detail Relationship Specialty Start Date End Date Cheo Potts MD [address] [facility] [address] [place] [address] PCP - General 01/03/17 Neftaly Portillo MD [address] [facility] [address] [place] [address] Consulting Physician Cardiology 11/15/18 Qi Norris MD [address] [address] Referring Physician Gastroenterology 05/10/23 Katharina Mac NP [address] [address] Nurse Practitioner Cardiology 11/21/23 Tree Ruiz MD PhD [address] [address] Consulting Physician Cardiology 11/21/23 Oanh Trevizo, DEBORA [address] [facility] [address] [place] [address] Nurse Practitioner Steward/Stewardess Second 09/18/24 [place] [address] [address] [facility] [address] [place] [address] Consulting Physician Pain Management 11/13/24 documented as of this encounter
--- OUTSIDE RECORDS SUMMARY | 2025-04-16 18:49 | XMS_ITS | Continuity of Care Document ---
Author Name [facility] Organization [facility] Care Team Providers Care Eligibility Services Representative Name Role Phone [facility] Unavailable Unavailable Problems Combined list of problems from Department of [facility] and [facility] facilities. It does not include entries that were removed or entered in error. Problem Status Onset Date Problem Type Date of Resolution Comments Source Allergic Rhinitis ([facility] [id number]) Active Condition [facility] Benign paroxysmal positional vertigo Active Condition [facility] Benign Prostatic Hypertrophy without Outflow Obstruction ([facility] [id number]) Active Condition [facility] CAD - Coronary Artery Disease ([facility] [id number]) Active Condition [facility] Chronic congestive heart failure Active Condition [facility] Generalized anxiety disorder Active Condition [facility] GERD - Gastro-Esophageal Reflux Disease ([facility] [id number]) Active Condition [facility] H/O: aortic aneurysm Active Condition [facility] HTN - Hypertension ([facility] [id number]) Active Condition [facility] Hyperlipidemia ([facility] 60792010) Active Condition [facility] Lumbar spinal stenosis Active Condition [facility] Obstructive Sleep Apnea of Adult ([facility] [id number]) Active Condition [facility] Peripheral arterial occlusive disease Active Condition [facility] Vitamin D Deficiency ([facility] 23764321) Active Condition [facility] Diagnosis: ICD-10-CM Z00.00 Encntr for general adult medical exam w/o abnormal findings Active Diagnosis [facility] Diagnosis: ICD-10-CM Z79.899 Other watcher automat long goods (current) drug therapy Active Diagnosis [facility] Medications Combined list of outpatient medications from [facility] of [facility] and [facility] facilities.Medications provided include 1) outpatient medications from the last 15 months, and 2) patient-reported medications. Medication Details Route Status Patient Instructions Prescription Expires Prescription Number Last Dispense Date Ordering Provider Order Date Order Qty Source ATORVASTATI N CA 40MG TAB TAKE ONE-HALF TABLET BY MOUTH EVERY EVENING ORAL ACTIVE 04/01/2026 [id number] MARGIEEJ Guillermo 2024 [address] [facility] AZELASTINE HCL 137MCG/SPRA Y INHL,NASAL, 30ML SPRAY 1 SPRAY IN NOSTRIL( S) TWICE A DAY *PRIME BEFORE USE* NASAL ACTIVE 04/01/2026 [id number] MARGIEEJ Guillermo 2024 [address] [facility] BUSPIRONE HCL 10MG TAB TAKE ONE-HALF TABLET BY MOUTH TWICE A DAY DO NOT TAKE WITH GRAPEFRU IT JUICE. ORAL ACTIVE 04/01/2026 [id number] EJ HANSON 2024 [address] [facility] CHOLECALCIF RAMIRO 25MCG (1,000UNIT) TAB TAKE ONE TABLET BY MOUTH ONCE A DAY ORAL ACTIVE EJ HANSON 2024 [facility] CODEINE 12MG/ACETAM INOPHEN 120MG/5ML SOLN,ORAL TAKE 30 ML BY MOUTH THREE TIMES A DAY NEEDED ORAL ACTIVE TITUS WEINER 2024 [facility] COENZYME Q10 CAP/TAB TAKE 1 CAP/TAB BY MOUTH ONCE A DAY ORAL ACTIVE MARGIE EJ Guillermo [address] [facility] EMPAGLIFLOZ IN 25MG TAB TAKE ONE TABLET BY MOUTH ONCE A DAY ORAL ACTIVE 04/01/2026 [id number] MARGIE EJ Guillermo 2024 [address] [facility] FINASTERIDE 5MG TAB TAKE ONE TABLET BY MOUTH ONCE A DAY SWALLOW WHOLE, DO NOT CRUSH, SPLIT, OR CHEW. ORAL ACTIVE 04/01/2026 [id number] EJ HANSON 2024 [address] [facility] GABAPENTIN 100MG CAP TAKE ONE CAPSULE BY MOUTH THREE TIMES A DAY ORAL ACTIVE 04/01/2026 [id number] EJ HANSON 2024 [address] [facility] LUTEIN CAP/TAB TAKE 1 CAP/TAB BY MOUTH ONCE A DAY ORAL ACTIVE EJ HANSON [address]24 [facility] MAGNESIUM GLYCINATE CAP/TAB TAKE 1 CAP/TAB BY MOUTH ORAL ACTIVE EJ HANSON 2024 [facility] MULTIVITAMI NS CAP/TAB TAKE ONE TABLET BY MOUTH ONCE A DAY ORAL ACTIVE EJ HANSON [address] [facility] OMEPRAZOLE 40MG CAP,EC TAKE ONE CAPSULE BY MOUTH EVERY MORNING BEFORE A MEAL TAKE 30 MINUTES PRIOR TO FOOD. ORAL ACTIVE 04/01/2026 [id number] EJ HANSON 2024 [address] [facility] SACUBITRIL 24MG/VALSAR YANES 26MG TAB TAKE 1 TABLET BY MOUTH TWICE A DAY ORAL ACTIVE 04/01/2026 [id number] EJ HANSON 2024 [address] [facility] SOTALOL HCL 120MG TAB TAKE ONE TABLET BY MOUTH TWICE A DAY ORAL ACTIVE 04/01/2026 [id number] EJ HANSON 2024 [address] [facility] Allergies, Adverse Reactions, Alerts Combined list of allergies from Department of Defense and Veterans Affairs facilities. It does not include entries that were removed or entered in error. Substance Category Reaction Severity Reaction type Status Date Reported Comments Source CELECOXIB Propensity to adverse reactions to drug (finding) Eruption MODERATE active 5 [facility] CIPROFLOXACIN Propensity to adverse reactions to drug (finding) Muscle pain MODERATE active 5 [facility] LATEX GLOVE Propensity to adverse reactions to drug (finding) Eruption MODERATE active [address] [place] [address] Immunizations Combined list of available immunizations from the Department of [facility] and [facility] facilities. Immunization Series Date Given Administered By Site Reaction Lot Number CVX Code Drug Medical Claims Representative Status Comments Source COVID-19 (MODERNA), MRNA, LNP-S, PF, 50 MCG/0.5 ML (AGES 12+ YEARS) 2022 312 complet ed HISTORICA L INFORMATI ON - FROM PATIENT'S WRITTEN RECORD, [facility] PNEUMOCOCCAL CONJUGATE PCV 13 2022 133 complet ed HISTORICA L INFORMATI ON - FROM PATIENT'S WRITTEN RECORD, [facility] ZOSTER RECOMBINANT 2 2022 187 complet ed HISTORICA L INFORMATI ON - FROM PATIENT'S WRITTEN RECORD, [facility] ZOSTER RECOMBINANT 1 2022 187 complet ed HISTORICA L INFORMATI ON - FROM PATIENT'S WRITTEN RECORD, [facility] COVID-19 (MODERNA), MRNA, LNP-S, BIVALENT, PF, 50 MCG/0.5 ML OR 25MCG/0.25 ML DOSE 1 2021 229 complet ed HISTORICA L INFORMATI ON - FROM PATIENT'S WRITTEN RECORD, [facility] COVID-19 (MODERNA), MRNA, LNP-S, PF, 100 MCG/0.5ML DOSE OR 50 MCG/0.25ML DOSE 2021 207 complet ed HISTORICA L INFORMATI ON - FROM PATIENT'S WRITTEN RECORD, [facility] COVID-19 (MODERNA), MRNA, LNP-S, PF, 100 MCG/0.5ML DOSE OR 50 MCG/0.25ML DOSE 2 2020 207 complet ed HISTORICA L INFORMATI ON - FROM PATIENT'S WRITTEN RECORD, [facility] COVID-19 (MODERNA), MRNA, LNP-S, PF, 100 MCG/0.5ML DOSE OR 50 MCG/0.25ML DOSE 1 2020 207 complet ed HISTORICA L INFORMATI ON - FROM PATIENT'S WRITTEN RECORD, [facility] TDAP 2008 115 complet ed HISTORICA L INFORMATI ON - FROM PATIENT'S WRITTEN RECORD, [facility] N Vital Signs Combined list of inpatient and outpatient Vital Signs from Department of Defense and Veterans Affairs, ranging from 12 months to all on record, depending upon the facility. Vital Sign Value Date Comments Source SYSTOLIC BLOOD PRESSURE 142 03/31/2025 12:39:58 [facility] DIASTOLIC BLOOD PRESSURE 90 03/31/2025 12:39:58 [facility] PULSE OXIMETRY 97 % 03/31/2025 12:39:58 [facility] WEIGHT 176 03/31/2025 12:39:58 [facility] BMI 173 kg/m2 03/31/2025 12:39:58 [facility] HEIGHT 26.772 03/31/2025 12:39:58 [facility] TEMPERATURE 97.9 03/31/2025 12:39:58 [facility] PULSE 68 03/31/2025 12:39:58 [facility] RESPIRATION 18 03/31/2025 12:39:58 [facility] Encounters Combined list of: 1) Encounters from Department of Veterans Affairs facilities going backup to the last 18 months, not all VA inpatient encounters are included; 2) Encounters from the Department of [facility] facilities going backup to 280 months. Location Location Details Encounter Type Encounter Number Reason For Visit Attending Provider ADM Date DC Date Status Disposition Source [facility] MTMS BY PHARM ADDL 15 MIN [id number] Diagnos is: ICD-10- CM Z79.899 Other penitentiary (curren t) drug therapy Samia WEINER 03/27 [facility]counter [id number] GER YIP 03/28 [facility] Outpatient [facility]counter [id number] 03/28 [facility] Outpatient Encounter [id number] 03/28 [facility] Outpatient Encounter [id number] 03/28 [facility] CB OFFICE O/P EST HI 40 MIN [id number] Diagnos is: ICD-10- CM Z00.00 Encntr for general adult medical exam w/o abnorma l finding s Corby HANSON 03/31 [facility] Social History Combined list of available smoking, tobacco, and other social history from Department of Defense and Veterans Affairs facilities. Social History Type Response Date Comment Sourc e Tobacco smoking status WIIS VA-TOBACCO USE FORMER CIGARETTES 03/31/2025 [facility] History of tobacco use VA-TOBACCO NEVER USED OTHER TYPE 03/31/2025 [facility] Plan of Care List of future care activities from Department of [facility] Affairs facilities. Additional future care activities may be listed in the Assessment and Plan section. Date/Time Care Activity Care Activity Detail Facili ty 09/23/2025 AMBULATORY - MEDICINE AMBULATORY - MEDICI NE [facility]
--- OUTSIDE RECORDS SUMMARY | 2025-04-16 18:49 | XMS_ITS | Continuity of Care Document ---
Author Organization [employer] [facility] Address [address] [facility] [address] [place] [address] Phone Care Team Providers Care Historic Sites Registrar Name Role Phone Juve PT,MPT,ATC, Armando Unavailable [...] Diagnoses Date Provider Providers Copied on Encounter [facility], [place], [place], [address], tel:[phone] [place] No Information Sep-2 2 Juve [place]an[place]. [facility], [place], [place], [address], tel:[phone] [place] No Information Sep-2 2 Juve [place]an[place]. [facility], [place], [place], [address], tel:[phone] [place] No Information Sep-2 2 Juve [place]an[place], . [facility], [place], [place], [address], tel:[phone] [place] No Information Sep-1 2 Ju[place]. [facility], [place], [address], [place] tel:[phone] [place] No Information Sep-1 - 2 An Arm[place]. , [place]. [facility], [place], [place], [address], [place] tel:[phone] [place] No Information Sep-0 2 An Arm[place]. , [place]. [facility], [place], [place], [address], [place] tel:[phone] [place] No Information Sep-0 2 An [place]. , [place]. [facility], [address], [place], [place], [address], tel:[phone] [place] No Information Dec-2 - 0 An Arm[place]. , [place]. [facility], [place], [place], [address], [place] tel:[phone] [place] No Information Aug-09 08- 0 An Arm[place]. , [place]. [facility], [place], [place], [address], [place] tel:[phone] [place] No Information 2 - 0 An [place]. , [place]. [facility], [place], [place], [address], [place] tel:[phone] [place] No Information Jul-1 - 0 An Arm[place]. , [place]. [facility], [place], [address], [place] tel:[phone] [place] No Information Jul-0 0 An [place]. , [place]. [facility], [place], [address], [place] tel:[phone] [place] No Information - 0 An [place]. , [place]. [facility], [place], [place], [address], [place] tel:[phone] [place] No Information 0 An [place]. , [place]. [facility], [place], [place], [address], tel:[phone] [place] No Information 0 An [place]. , [place]. [facility], [place], [address], tel:[phone] [place] No Information 0 An [place]. , [place]. [facility], [place], [place], [address], tel:[phone] [place] No Information 0 An [place]. , [place]. [facility], [place], [place], [address], tel:[phone] [place] No Information 9 Makler Luke. . [facility], [place], [place], [address], [place] tel:[phone] [place] No Information 9 An [place]. , [place]. [facility], [place], [place], [address], tel:[phone] [place] No Information 9 Makler Luke. . [facility], [place], [place], [address], [place] tel:[phone] [place] No Information 0 9 Omar Durham. . Referring Provider: Tarik Fish, [address], [place], [address]. tel:[phone] [facility], [place], [place], [address], [place] tel:[phone] [place] No Information Oct-0 1-201 9 Treaster Marva. . Referring Provider: Nle Su[address]rez[address], [place], [address]. tel:[phone] [place] [address] [address], [place], [place], [address], tel:[phone] [place] No Information Sep-2 6-201 9 Treaster Marva. . Referring Provider: Nel Su[address]rez[address], [place], [address]. tel:[phone] [place] [address] [address], [place], [place], [address], [place] tel:[phone] [place] No Information Sep-1 9-201 9 Treaster Marva. . Referring Provider: Nel Su[address]rez[address], [place], [address]. tel:[phone] [place] [address] [facility] [address], [place], [place], [address], [place] tel:[phone] [place] No Information Sep-1 0-201 9 Treaster Marva. . Referring Provider: Nel Suárez[address], [place], [address]. tel:[phone] [place] [address] [address], [place], [place], [address], [place] tel:[phone] [place] No Information Sep-0 3-201 9 Treaster Marva. . Referring Provider: Nel Suárez[address], [place], [address]. tel:[phone], [place], [place], [address], [place] tel:[phone] [place] No Information Apr-2 7-201 9 [place], [place]. Referring Provider: Nel Suárez[address], [place], [address]. tel:[phone] [facility], [place], [place], [address], [place] tel:[phone] [place] Pain in left shoulderPain in right shoulder 8 An Arm[place]. , [place]. [facility], [place], [place], [address], [place] tel:[phone] [place] Pain in left shoulderPain in right shoulder 8 An Armando. , [place], [place]. [facility], [place], [place], [address], [place] tel:[phone] [place] Pain in left shoulderPain in right shoulder 8 An Arm[place]. , [place]. [facility], [place], [place], [address], [place] tel:[phone] [place] Pain in left shoulderPain in right shoulder 8 An Arm[place]. , [place]. [facility], [place], [place], [address], [place] tel:[phone] [place] Pain in left shoulderPain in right shoulder 8 An Arm[place]. , [place]. [facility], [place], [place], [address], [place] tel:[phone] [place] Pain in left shoulderPain in right shoulder 8 An Arm[place]. , [place], [place]. [facility], [place], [place], [address], [place] tel:[phone] [place] Pain in left shoulderPain in right shoulder 8 An Armando. , [place], [place]. [facility], [place], [place], [address], [place] tel:[phone] [place] Pain in left shoulderPain in right shoulder Jun- 8 Juve [place]. , [place]. [facility], [place], [place], [address], [place] tel:[phone] [place] Pain in left shoulderPain in right shoulder Jun- 8 Francisco Qureshi. . [facility], [place], [place], [address], [place] tel:[phone] [place] Pain in left shoulderPain in right shoulder Jun- 8 Juve [place]. , [place]. [facility], [place], [place], [address], [place] tel:[phone] [place] Pain in left shoulderPain in right shoulder Jun- 8 Juve Castaneda , [place]. [facility], [place], [place], [address], [place] tel:[phone] [place] Pain in left shoulderPain in right shoulder Jun-0 8 Juve [place]. , [place]. [facility], [place], [place], [address], [place] tel:[phone] [place] Spinal stenosis, lumbar region without neurogenic andre Apr-0 8 Juve [place] , [place]. Referring Provider: Chris Álvarez [address], [place], [place], [facility]. tel:[phone] [facility], [place], [place], [address], [place] tel:[phone] [place] Spinal stenosis, lumbar region without neurogenic nadre Apr-0 8 Ju[place]. Referring Provider: Chris Álvarez [address], [place], [address]. tel:[phone] [facility], [place], [place], [address], [place] tel:[phone] [place] Spinal stenosis, lumbar region without neurogenic andre Apr-0 2-201 8 An Arm[place]. , [place]. Referring Provider: Aguila Álvarez[address] [place] [address] [address], [place], [facility]. tel:[phone] [facility], [address], [place], [place], [address], [place] tel:[phone] [place] Spinal stenosis, lumbar region without neurogenic andre Mar-3 0-201 8 Crumrod [place]. , [place]. Referring Provider: Cheo Potts [address] [place] [address] [address], [place], [facility]. tel:[phone] [facility] [address], [place], [place], [address], [place] tel:[phone] [place] Spinal stenosis, lumbar region without neurogenic andre Mar-2 8-201 8 Crumrod [place]. , [place]. Referring Provider: Aguila Álvarez[address] [place] [address] [address], [place], [facility]. tel:[phone] [place] [address] [facility] [address], [place], [place], [address], [place] tel:[phone] [place] Spinal stenosis, lumbar region without neurogenic andre Mar-2 6-201 8 [facility] , [place]. Referring Provider: Aguila Álvarez[address] [place] [address] [address], [place], [facility]. tel:[phone] [facility] [address], [place], [place], [address], [place] tel:[phone] [place] Spinal stenosis, lumbar region without neurogenic andre Mar-2 3-201 8 [facility] , [place]. Referring Provider: Aguila Álvarez[address] [place] [address] [address], [place], [facility]. tel:[phone] [facility] [address], [place], [place], [address], [place] tel:[phone] [place] Spinal stenosis, lumbar region without neurogenic andre Mar-2 1-201 8 An Arm[place]. , [place]. Referring Provider: Aguila Álvarez[address] [place] [address] [address], [place], [address]. tel:[phone] [place] [address], [place], [place], [address], [place] tel:[phone] [place] Spinal stenosis, lumbar region without neurogenic andre Mar-1 9-201 8 An Arm[place]. , [place]. Referring Provider: Aguila Álvarez[address] [place] [address] [address], [place], [facility]. tel:[phone] [place] [address], [place], [place], [address], [place] tel:[phone] [place] No Information Mar-1 6-201 8 An Arm[place]. , [place]. Referring Provider: Aguila Álvarez[address] [place] [address] [address], [place], [facility]. tel:[phone], [place], [place], [address], [place] tel:[phone] [place] No Information Mar-1 4-201 8 An Arm[place]. , [place]. Referring Provider: Chris Álvarez [facility] [address], [place], [facility]. tel:[phone], [place], [place], [address], [place] tel:[phone] [place] No Information Mar-1 2-201 8 An [place]. , [place]. Referring Provider: Chris Álvarez [facility] [address], [place], [facility]. tel:[phone] [facility] [address], [place], [place], [address], [place] tel:[phone] [place] No Information Mar-0 9-201 8 An Arm[place]. , [place]. Referring Provider: Chris Álvarez [facility] [address], [place], [facility]. tel:[phone] [place] [address], [place], [place], [address], [place] tel:[phone] [place] No Information Mar-0 7-201 8 An Arm[place]. , [place]. Referring Provider: Cheo Potts [address] [place] [address] [address], [place], [facility]. tel:[phone] [facility] [address], [place], [place], [address], [place] tel:[phone] [place] No Information Mar-0 5-201 8 An [place]. , [place]. Referring Provider: Cheo Potts [address] [place] [address] [address], [place], [facility]. tel:[phone] [facility] [address], [place], [place], [address], tel:[phone] [place] No Information Mar-0 2-201 8 Guillermina Adames. . Referring Provider: Cheo Potts [address] [place] [address] [address], [place], [facility]. tel:[phone] [facility], [address], [place], [place], [address], [place] tel:[phone] [place] Spinal stenosis, lumbar region without neurogenic andre Feb-2 8-201 8 An Armando. , [place]. Referring Provider: Cheo Potts [address] [place] [address] [address], [place], [facility]. tel:[phone] [facility] [address], [place], [place], [address], [place] tel:[phone] [place] No Information Nov-0 9-201 7 An Arm[place]. , [place]. Referring Provider: Tarik Fish, [address] [facility] [address], [place], [address]. tel:[phone] [facility], [place], [place], [address], [place] tel:[phone] [place] No Information Nov-0 1-201 7 [facility] [place]. Referring Provider: Nel Suárez[address], [place], [address]. tel:[phone], [place], [place], [address], [place] tel:[phone] [place] No Information Jun-3 0-201 7 [facility] , [place] Referring Provider: Nel Suárez[address], [place], [address]. tel:[phone] [facility] [address], [place], [place], [address], [place] tel:[phone] [place] No Information Jun-2 3-201 7 [facility] [place]. Referring Provider: Nel Suárez[address], [place], [address]. tel:[phone] [facility] [address], [place], [place], [address], [place] tel:[phone] [place] No Information Jun- 9-201 7 [facility] [place]. Referring Provider: Tacos Suárez [address], [place], [address]. tel:[phone] [facility] [address], [place], [place], [address], [place] tel:[phone] [place] No Information Jun-1 6-201 7 [facility] [place]. Referring Provider: Nel Suárez[address], [place], [address]. tel:[phone] [facility] [address], [place], [place], [address], [place] tel:[phone] [place] No Information Jun-0 9-201 7 Crumrod Arm[place]. , [place]. Referring Provider: Tacos Suárez [address], [place], [address]. tel:[phone] [facility] [address], [place], [place], [address], tel:[phone] [place] No Information Jun-0 7 [place], . Referring Provider: Tacos Suárez [address], [place], [address]. tel:[phone] [facility] [address], [place], [place], [address], tel:[phone] [place] No Information Jun-0 7 [place], . Referring Provider: Tacos Suárez [address], [place], [address]. tel:[phone] [facility] [address], [place], [place], [address], tel:[phone] [place] No Information Sep-2 7 [place], . Referring Provider: Tacos Suárez [address], [place], [address]. tel:[phone] [facility] [address], [place], [place], [address], tel:[phone] [place] No Information Sep-2 7 Niederhomatthias Adames. . Referring Provider: Tacos Suárez [address], [place], [address]. tel:[phone] [facility] [address], [place], [place], [address], [place] tel:[phone] [place] Stiffness of right knee, not elsewhere classifiedPai n in right kneeOth disrd of synovium and tendon, unspecified siteAbnormal posture Sep-2 7 Niederhoffer Rosangela. . Referring Provider: Tacos Suárez [address], [place], [address]. tel:[phone] Family History Family Member Type Diagnosis Age At Onset No Information Payers Payer name Insurance type Covered alliance party ID Authordariena tikavon(s) Medicare [place] MB [id number] [facility] [id number] Social History Type Description Quantity Date Captured [...]
--- OUTSIDE RECORDS SUMMARY | 2025-04-16 18:49 | XMS_ITS | Encounter Summary ---
Author Organization [facility] Address [address] [place] [address] Phone Care Team Providers Care Religious Ritual Slaughterer Name Role Phone Cheo Potts MD Primary Care Provider Neftaly Portillo MD Unavailable [phone] Qi Norris MD Unavailable [phone] Katharina Mac HOSPITAL TECHNICIAN Unavailable [phone] Tree Ruiz MD PhD Unavailable [phone] Oanh Trevizo HOSPITAL TECHNICIAN Unavailable Torin Almodovar MD Unavailable Encounter Details Date Type Department Care Team (Late st Contact Info) Description 04/04/2025 Results Follow-Up [facility] Cardiology [address] [facility] [address] [place] [address] Mae Villanueva RMA Carotids Duplex Bilateral Social History Tobacco Use Types Packs/Day Years Used Date Smoking Tobacco: Former Cigarettes 1 13 1 959 - 1971 Passive Smoke Exposure: Past Smokeless Tobacco: Never Alcohol Use Standard Drinks/Week Comments Yes 7 (1 standard drink = 0.6 oz pur e alcohol) [facility] Utilities Answer Date Recorded In the past 12 months has [employer] electric, gas, oil, or water company threatened [...] often do you attend chur ch or jainism services? Never 09/22/2023 Do you belong to any clubs o r organizations such as jew groups, unions, fraternal or athletic groups, or [...] place to sleep or slept in a penitentiary (including now)? No 09/22/2023 Personal Safety Answer Date Recorded Have you ever been in or are you currently in a harmful physical or emotional relationship or is someone making you feel afraid or unsafe? 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 Gender Identity Male 11/05/2020 12:05 PM INTERVENTION TEACHER Sexual Orientation Not on file documented as of this encounter Plan of Treatment Not on file documented as of this encounter Visit Diagnoses Not on filedocumented in this encounter Care Teams Religious Ritual Slaughterer Relationship Specialty Start Date End Date Cheo Potts MD [address] [facility] [address] [facility] 120 [place] [address] PCP - General 01/03/17 Neftaly Portillo MD [address] [facility] [address] [place] [address] Consulting Physician Cardiology 11/15/18 Qi Norris MD [address] [address] Referring Physician Gastroenterology 05/10/23 Katharina Mac NP [address] [address] Nurse Practitioner Cardiology 11/21/23 Tree Ruiz MD PhD [address] [address] Consulting Physician Cardiology 11/21/23 [place] [address] [address] [facility] [address] [place] [address] Nurse Practitioner Grounds Restoration Specialist 09/18/24 [place] [address] [address] [facility] [address] [place] [place] [address] Consulting Physician Pain Management 11/13/24 documented as of this encounter
--- OUTSIDE RECORDS SUMMARY | 2025-04-16 18:49 | XMS_ITS | Encounter Summary ---
Author Organization [facility] Address [address] [place] [address] Phone Care Team Providers Care Administrative Services Director Name Role Phone Cheo Potts MD Primary Care Provider Neftaly Portillo MD Unavailable [phone] Qi Norris MD Unavailable [phone] Katharina Mac BEHAVIORAL HEALTH TECH Unavailable Tree Ruiz MD PhD Unavailable [phone] Oanh Trevizo BEHAVIORAL HEALTH TECH Unavailable [phone] Torin Almodovar MD Unavailable Encounter Details Date Type Department Care Team (Late st Contact Info) Description 03/31/2025 Telephone [facility] Cardiology [address] [facility] Advanced Medicine 8th [place] [address] [place] [address] Neftaly Portillo MD [address] [facility] [address] [place], [place] [id number] Social History Tobacco Use Types Packs/Day Years Used Date Smoking Tobacco: Former Cigarettes 1 13 1 9 - 1971 Passive Smoke Exposure: Past Smokeless Tobacco: Never Alcohol Use Standard Drinks/Week Comments Yes 7 (1 standard drink = 0.6 oz pur e alcohol) [facility] Utilities Answer Date Recorded In the past 12 months has [employer] electric, gas, oil, or water company threatened [...] often do you attend chur ch or rastafari services? Never 09/22/2023 Do you belong to any clubs o r organizations such as hinduism groups, unions, fraternal or athletic groups, or [...] place to sleep or slept in a detention (including now)? No 09/22/2023 Personal Safety Answer Date Recorded Have you ever been in or are you currently in a harmful physical or emotional relationship or is someone making you feel afraid or unsafe? Denies 02/21/2025 Sex and Gender Information Value Date Recorded Sex Assigned at Not on file Legal Sex Male 3:18 AM SERVER Gender Identity Male 11/05/2020 12:05 PM SERVER Sexual Orientation Not on file documented as of this encounter Miscellaneous Notes * Telephone Encounter - Prisca Stevens - 03/31/2025 4:09 PM CDT Band[facility] Patient returning missed call. He can be reached at [phone]. documented in this encounter Plan of Treatment Not on file documented as of this encounter Visit Diagnoses Not on filedocumented in this encounter Care Teams Administrative Services Director Relationship Specialty Start Date End Date Cheo Potts MD [address] [facility] [address] [place] [address] PCP - General 01/03/17 Neftaly Portillo MD [address] [facility] [address] [place] [address] Consulting Physician Cardiology 11/15/18 Qi Norris MD 2 [facility] [address] [place] [address] Referring Physician Gastroenterology 05/10/23 Katharina Mac NP [address] [address] Nurse Practitioner Cardiology 11/21/23 Tree Ruiz MD PhD [address] [address] Consulting Physician Cardiology 11/21/23 [place] [address] [id number] Nurse Practitioner Hand Bander 09/18/24 [place] [address] [address] [place] [address] [place] [address] Consulting Physician Pain Management 11/13/24 documented as of this encounter
[2025-04-16 20:18] VITALS: BP 172/84; PULSE 61; RESP 16; O2SAT 100
== END 2025-04-16 20:21 | disposition home or self-care (01) ==
PROVIDERS: Registered Nurse; Emergency Provider Student in an Organized Health Care Education/Training Program; PCP Family Medicine
DX: R42 Dizziness and giddiness (principal); R53.83 Other fatigue; F03.A0 Unspecified dementia, mild, without behavioral disturbance, psychotic disturbance, mood disturbance, and anxiety; E78.5 Hyperlipidemia, unspecified; I48.0 Paroxysmal atrial fibrillation; G47.33 Obstructive sleep apnea (adult) (pediatric); K21.9 Gastro-esophageal reflux disease without esophagitis; I25.10 Atherosclerotic heart disease of native coronary artery without angina pectoris; I50.9 Heart failure, unspecified; I11.0 Hypertensive heart disease with heart failure; Z95.0 Presence of cardiac pacemaker; Z87.891 Personal history of nicotine dependence
CPT/HCPCS: 36415; 70450; 80053; 81001; 85025; 85610; 85730; 99284